=== PATIENT | male | born 1940 | race Caucasian/White ===

== ENCOUNTER 2022-10-20 12:22 | Emergency (ER) | payer MEDICARE, SELFPAY ==
[2022-10-20] VITALS (15 sets, daily range): BP systolic 114–150; BP diastolic 62–91; PULSE 56–99; RESP 14–27; TEMP 36.9; O2SAT 96–99; BMI 25.7
--- NOTE | 2022-10-20 12:29 | ED_ITS ---
HPI - Chest Pain General Chief Complaint: Chest Pain Stated Complaint: CHEST PAIN/ LEFT ARM PAIN Time Seen by Provider: 10/20/22 12:29 Source: patient Mode of arrival: walk-in History of Present Illness HPI narrative: issue here complaining of chest discomfort off and on the last several days if not longer. He somewhat of a hesitant historian. Initially treated him as a cold because he was getting hot and cold flashes. But he never really ran a fever. He's not had any sputum production. Does not have any nausea vomiting or diaphoresis. He has substantial history coronary disease, two thousand ten he had triple bypass surgery at [facility]. He does take aspirin and his other heart pills with regularity. The initial episode [place] However he said about a half a dozen spells lasting less than five minutes today. He has not had a recent cardiac stress test. He says he notices some increasing shortness of breath when he tries to get work done. Dr. Palomo is his primary care doctor. Related Data Home Medications Medication Instructions Recorded Confirmed aspirin 81 mg tablet,delayed 81 mg PO DAILY 10/20/22 10/20/22 release (Adult Low Dose Aspirin) atorvastatin 40 mg tablet 40 mg PO DAILY 10/20/22 10/20/22 carvedilol 25 mg tablet 25 mg PO Q12H 10/20/22 10/20/22 clopidogrel 75 mg tablet 75 mg PO DAILY 10/20/22 10/20/22 hydralazine 25 mg tablet 25 mg PO Q8H 10/20/22 10/20/22 isosorbide mononitrate 30 mg 30 mg PO DAILY 10/20/22 10/20/22 tablet,extended release 24 hr lisinopril 40 mg tablet 40 mg PO DAILY 10/20/22 10/20/22 nitroglycerin 0.4 mg sublingual 0.4 mg sublingual Q5M 10/20/22 10/20/22 tablet pantoprazole 40 mg tablet,delayed 40 mg PO DAILY 10/20/22 10/20/22 release spironolactone 25 mg tablet 25 mg PO DAILY 10/20/22 10/20/22 Allergies Allergy/AdvReac Type Severity Reaction Status Date / Time No Known Drug Allergies Allergy Verified 10/20/22 12:29 Exam Narrative Exam Narrative: patient awake alert adequate historiann. He did forget about his transferred to [facility] about a year ago for non-STEMI but he is oriented ?3 and very pleasant here with his granddaughter. Vital signs are stable. A stat 12-lead EKG was done on his arrival and does not show any acute ischemia injury or infarct. HEENT shows head to be a somatic kerry she is normocephalic with no evidence of trauma or injury there is no pallor or anemia. Neck is soft and supple. Do not see evidence of jugular vein distention or thyromegaly. Chest his lungs are clear no wheezes rales or rhonchi heart sounds are normal with no S3-S4 clicks rubs or murmurs. Peripheral pulses are strong and equal symmetrical bilaterally. The abdomen does not have a abdominal pain discomfort masses are palpable or Constitutional Vital Signs - 24 hr 10/20/22 12:25 10/20/22 12:27 10/20/22 12:27 Temperature 98.4 F Pulse Rate Pulse Rate [Monitor] 99 H Respiratory Rate 16 Blood Pressure 143/91 H Blood Pressure [Right Arm] 143/91 H Pulse Oximetry 98 99 99 Oxygen Delivery Method Room Air 10/20/22 12:30 10/20/22 12:46 10/20/22 13:00 Temperature Pulse Rate 63 61 59 L Pulse Rate [Monitor] Respiratory Rate 18 16 18 Blood Pressure 150/70 H 127/75 H 114/63 Blood Pressure [Right Arm] Pulse Oximetry 99 98 97 Oxygen Delivery Method 10/20/22 13:00 10/20/22 13:15 10/20/22 13:30 Temperature Pulse Rate 66 58 L 59 L Pulse Rate [Monitor] Respiratory Rate 18 18 21 Blood Pressure 114/63 124/62 H 121/66 H Blood Pressure [Right Arm] Pulse Oximetry 98 98 97 Oxygen Delivery Method 10/20/22 13:45 10/20/22 14:00 10/20/22 14:15 Temperature Pulse Rate 56 L 58 L 60 Pulse Rate [Monitor] Respiratory Rate 18 18 27 H Blood Pressure 123/64 H 125/66 H 123/67 H Blood Pressure [Right Arm] Pulse Oximetry 96 99 98 Oxygen Delivery Method 10/20/22 14:30 10/20/22 14:45 10/20/22 15:00 Temperature Pulse Rate 60 59 L 59 L Pulse Rate [Monitor] Respiratory Rate 14 21 16 Blood Pressure 135/69 H 132/69 H 138/74 H Blood Pressure [Right Arm] Pulse Oximetry 99 99 97 Oxygen Delivery Method 10/20/22 15:15 10/20/22 15:30 Temperature Pulse Rate 61 64 Pulse Rate [Monitor] Respiratory Rate 15 23 Blood Pressure 139/69 H 149/90 H Blood Pressure [Right Arm] Pulse Oximetry 97 99 Oxygen Delivery Method Course Vital Signs Vital signs: Vital Signs Temperature 98.4 F 10/20/22 12:25 Pulse Rate 99 H 10/20/22 12:25 Respiratory Rate 16 10/20/22 12:25 Blood Pressure 143/91 H 10/20/22 12:25 Pulse Oximetry 98 10/20/22 12:25 Oxygen Delivery Method Room Air 10/20/22 12:25 Temperature 98.4 F 10/20/22 12:25 Pulse Rate 64 10/20/22 15:30 Respiratory Rate 23 10/20/22 15:30 Blood Pressure 149/90 H 10/20/22 15:30 Pulse Oximetry 99 10/20/22 15:30 Oxygen Delivery Method Room Air 10/20/22 12:25 MDM - Chest Pain MDM Narrative Medical decision making narrative: patient's initial evaluation discloses negative troponin. Two-hour troponin high sensitivity is decreasing and still within the normal range. His chest x-ray did not show any acute findings. He was reexamined is doing well has not had any further symptoms. I think he should follow up with primary care doctor. We don't know exactly when his last stress test or echo were but will let the telecommunications equipment installer decided to be prudent to reevaluate him. He's compliant with his medication. Lab Data Labs: Lab Results 10/20/22 10/20/22 Range/Units 12:39 14:35 WBC 13.1 H (4.0-11.0) 10^3/uL RBC 4.90 (4.70-6.10) 10^6/uL Hgb 14.3 (14.0-18.0) g/dL Hct 42.3 (42.0-54.0) % MCV 86.3 (80.0-94.0) fL MCH 29.2 (25.9-34.0) pg MCHC 33.8 (29.9-35.2) g/dL RDW 13.6 (11.0-15.0) % Plt Count 176 (150-450) 10^3/uL MPV 10.1 (9.5-13.5) fL Seg Neuts % (Manual) 70.0 Lymphocytes % (Manual) 17.0 L (20.5-60.0) % Monocytes % (Manual) 13.0 H (1.7-12.0) % Eosinophils % (Manual) 0.0 L (0.9-7.0) % Basophils % (Manual) 0.0 L (0.2-2.0) % Neutrophils # (Manual) 9.17 H (1.4-6.5) 10^3/uL Lymphocytes # (Manual) 2.22 (1.20-3.80) 10^3/uL Monocytes # (Manual) 1.70 H (0.30-0.80) 10^3/uL Eosinophils # (Manual) 0.00 (0.00-0.70) 10^3/uL Basophils # (Manual) 0.00 (0.00-0.10) 10^3/uL PT 10.6 (9.0-11.6) sec INR 1.00 APTT 31.7 (22.3-36.2) sec Sodium 135 L (136-145) mmol/L Potassium 4.4 (3.5-5.1) mmol/L Chloride 101 (98-107) mmol/L Carbon Dioxide 25.5 (21.0-32.0) mmol/L Anion Gap 12.9 BUN 29.0 H (7.0-18.0) mg/dL Creatinine 1.46 H (0.70-1.30) mg/dL Est GFR ( Amer) 56 L (>=60) Est GFR (Non-Af Amer) 46 L (>=60) BUN/Creatinine Ratio 19.9 Glucose 100 (74-106) mg/dL Calcium 9.3 (8.5-10.1) mg/dL Total Bilirubin 2.2 H (0.2-1.0) mg/dL AST 22 (15-37) U/L ALT 36 (16-63) U/L Alkaline Phosphatase 75 (46-116) U/L Troponin I High Sens 15.1 13.5 (4.0-76.1) pg/mL Total Protein 7.5 (6.4-8.2) g/dL Albumin 3.5 (3.4-5.0) g/dL Globulin 4.0 g/dL Albumin/Globulin Ratio 0.9 Discharge Plan Discharge Chief Complaint: Chest Pain Clinical Impression: Atypical chest pain Patient Disposition: Home, Self-Care Time of Disposition Decision: 15:43 Mode of Transportation: Private Vehicle Prescriptions / Home Meds: No Action atorvastatin 40 mg tablet 40 mg PO DAILY carvedilol 25 mg tablet 25 mg PO Q12H clopidogrel 75 mg tablet 75 mg PO DAILY hydralazine 25 mg tablet 25 mg PO Q8H isosorbide mononitrate 30 mg tablet extended release 24 hr 30 mg PO DAILY lisinopril 40 mg tablet 40 mg PO DAILY nitroglycerin 0.4 mg tablet, sublingual 0.4 mg sublingual Q5M pantoprazole 40 mg tablet,delayed release (DR/EC) 40 mg PO DAILY spironolactone 25 mg tablet 25 mg PO DAILY aspirin [Adult Low Dose Aspirin] 81 mg tablet,delayed release (DR/EC) 81 mg PO DAILY Instructions: Chest Pain (ED) Stand Alone Forms: Portal Instructions Referrals: PHOENIX GONZALEZ [Primary Care Provider] - 1 week
--- NOTE | 2022-10-20 12:29 | ECG_ITS ---
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
--- NOTE | 2022-10-20 12:29 | XR_ITS ---
[address] [address] Patient Name: RADHA BOB MRN: [id number] date: 1940 Sex: M Assigned Patient Location: ER Current Patient Location: ED.MAIN Accession/Order Number: [id number] Exam Date: 10/20/2022 12:46 Report Date: 10/20/2022 13:23 At the request of: HEAVENLY HENRIQUEZ Procedure: XR chest 1V EXAMINATION: XR chest 1V HISTORY: pain ; chest pain, left arm pain COMPARISON: XR chest 08/07/2021 FINDINGS: LUNGS: No significant pulmonary parenchymal abnormalities. VASCULATURE: No increased pulmonary vasculature. PLEURA: No pneumothorax, effusion, or pleural thickening. CARDIAC: No cardiomegaly or cardiac silhouette abnormality. MEDIASTINUM: No visible mass or adenopathy. BONES: No fracture or visible bone lesion. OTHER: Prior sternotomy. IMPRESSION: 1. No acute cardiopulmonary process. Stable chest. Electronically authenticated by: JASKARAN CARRERA Date: 10/20/2022 13:23
[2022-10-20 12:45] LABS: Hematocrit 42.3 % (42.0-54.0); Hemoglobin 14.3 g/dL (14.0-18.0); Mean Corpuscular HGB Conc 33.8 g/dL (29.9-35.2); Mean Corpuscular Hemoglobin 29.2 pg (25.9-34.0); Mean Corpuscular Volume 86.3 fL (80.0-94.0); Mean Platelet Volume 10.1 fL (9.5-13.5); Platelet Count 176 10^3/uL (150-450); Red Cell Distribution Width 13.6 % (11.0-15.0); White Blood Count 13.1 10^3/uL (4.0-11.0)
[2022-10-20 13:00] LABS: Partial Thromboplastin Time 31.7 sec (22.3-36.2); Prothrombin Time 10.6 sec (9.0-11.6)
[2022-10-20 13:02] LABS: Alanine Aminotransferase 36 U/L (16-63); Albumin Globulin Ratio 0.9; Albumin Level 3.5 g/dL (3.4-5.0); Alkaline Phosphatase 75 U/L (46-116); Anion Gap 12.9; Aspartate Amino Transferase 22 U/L (15-37); BUN Creatinine Ratio 19.9; Bilirubin Total 2.2 mg/dL (0.2-1.0); Calcium 9.3 mg/dL (8.5-10.1); Carbon Dioxide 25.5 mmol/L (21.0-32.0); Chloride 101 mmol/L (98-107); Estimated GFR (African America 56 (>=60); Estimated GFR (Non-African Ame 46 (>=60); Glucose 100 mg/dL (74-106); Potassium 4.4 mmol/L (3.5-5.1); Sodium 135 mmol/L (136-145); Total Protein 7.5 g/dL (6.4-8.2); Troponin I High Sensitivity 15.1 pg/mL (4.0-76.1)
[2022-10-20 13:11] LABS: Lymphocytes Absolute Manual 2.22 10^3/uL (1.20-3.80); Segmented Neut Absolute Manual 9.17 10^3/uL (1.4-6.5)
[2022-10-20 14:58] LABS: Troponin I High Sensitivity 13.5 pg/mL (4.0-76.1)
== END 2022-10-20 15:57 | disposition home or self-care (01) ==
PROVIDERS: Emergency Provider Emergency Medicine Emergency Medical Services; PCP Internal Medicine
DX: R07.89 Other chest pain (principal); I25.10 Atherosclerotic heart disease of native coronary artery without angina pectoris; Z79.82 Long term (current) use of aspirin; Z79.899 Other long term (current) drug therapy; I25.2 Old myocardial infarction
CPT/HCPCS: 36415; 71045; 80053; 84484; 85007; 85025; 85610; 85730; 93005; 99285

== ENCOUNTER 2023-01-01 08:46 | Outpatient (OUT) | payer MEDICARE, SELFPAY ==
--- NOTE | 2023-01-01 09:31 | CA_ITS ---
Patient: RADHA BOB Exam Date: 01/01/2023 : 1940 Gender:M Ordering : CELIA DURHAM Admission #: [id number] Family : DR PHOENIX GONZALEZ M.D. Order #: [id number] CLICK HERE TO VIEW EXAM ECHOCARDIOGRAM REPORT PROCEDURE: CA ECHO DOPPLER COMPLETE INDICATIONS: Ischemic cardiomyopathy, chronic systolic heart failure, CABGx3, h/o IN's, hypertension COMPARISON: None. DESCRIPTION: COMPLETE ECHOCARDIOGRAM Real-time transthoracic echocardiography with 2D, M-mode, spectral and color flow Doppler performed. QUALITY: Technical quality was good. LEFT VENTRICLE: Normal chamber size. Proximal septal hypertrophy (sigmoid septum). LV EF: Global left ventricular systolic function is moderately reduced; visually estimated ejection fraction is 30-35%. The distal third of the inferior wall is akinetic. The distal two thirds of the anteroseptum appears severely hypokinetic. DIASTOLIC: Grade II diastolic dysfunction. ATRIAL SEPTUM: Visually appears intact. LEFT ATRIUM: Mild dilatation. RIGHT ATRIUM: Normal chamber size. RIGHT VENTRICLE: Normal chamber size. Decreased right ventricular systolic function. TRICUSPID VALVE: Normal mobility and thickness. No stenosis with trivial regurgitation. No evidence of pulmonary hypertension. RVSP 34 mmHg MITRAL VALVE: Mildly thickened with normal mobility. No evidence of mitral valve stenosis. There is no mitral annular calcification. Trivial mitral regurgitation. AORTIC VALVE: Normal trileaflet appearance. Mildly calcified aortic valve. Mildly diminished mobility. No evidence of aortic valve stenosis. Trivial aortic regurgitation. AORTIC ROOT: Normal diameter and appearance. PULMONIC VALVE: Normal thickness and mobility. No stenosis. Trivial regurgitation. PERICARDIUM: Trivial pericardial effusion is seen. IVC: Collapses with inspirations. IVC is normal in size. CONCLUSION: 1. Global left ventricular systolic function is moderately reduced; visually estimated ejection fraction is 30 to 35%. Segmental wall motion abnormalities are seen. 2. Grade 2 diastolic dysfunction. 3. The left atrium is mildly dilated. 4. The right ventricle is normal in size with decreased systolic function. 5. No significant valvular abnormalities. 6. Trivial pericardial effusion is seen. Adult Echocardiography Procedure Report Left Ventricle LVEDD (3.7 - 5.6 cm): 4.57 cm LVESD (2.2 - 4.0 cm): 2.94 cm LVIVS thickness (0.6 - 1.2 cm): 1.23 cm LVPW thickness (0.5 - 1.0 cm): 0.85 cm e': 0.04 m/s E - e': 12.16 LVOT Max Gradient: 2.19 mm[Hg] LVOT Area (cm2): 0.74 m/s Peak Velocity (LVOT): 0.74 m/s Mean Velocity (LVOT): 0.54 m/s LVOT Diameter 2.54 cm Left Atrium LA Volume Index (2D A2C): 38.68 ml/m2 Left Atrium Systolic Dimension: 4.48 cm Mitral Valve MV E to A Ratio: 0.58 Mitral Valve A-Wave Peak Velocity: 0.93 m/s Mitral Valve E-Wave Peak Velocity: 0.54 m/s Right Ventricle Aorta AO Root Diam: 3.38 cm Ascending Ao Diam: 2.81 cm Aortic Valve AoV Area (Peak Adarsh): 3.70 cm2, 3.83 cm2 AoV Area (VTI): 3.54 cm2, 3.72 cm2 Peak Velocity(Antegrade Flow): 0.98 m/s, 1.05 m/s Peak Gradient(Antegrade Flow): 3.85 mm[Hg], 4.42 mm[Hg] Mean Velocity(Antegrade Flow): 0.69 m/s, 0.75 m/s Mean Gradient(Antegrade Flow): 2.16 mm[Hg], 2.57 mm[Hg] Velocity Time Integral: 22.13 cm, 24.28 cm Tricuspid Valve Peak Velocity (Regurgitant Flow): 2.78 m/s Pulmonic Valve Peak Velocity: 1.18 m/s Peak Gradient: 5.61 mm[Hg], 5.61 mm[Hg] Right Atrium Right Atrium Systolic Pressure: 46.08 ml, 46.08 ml Dictated by: Rohit Adkins M.D. on 01/01/2023 at 13:02 Approved by: Rohit Adkins M.D. on 01/01/2023 at 13:08
== END 2023-01-01 08:47 | disposition home or self-care (01) ==
LOC: CARD 08:46
PROVIDERS: PCP Internal Medicine; Visit Provider Nurse Practitioner
DX: I25.5 Ischemic cardiomyopathy (principal); I50.22 Chronic systolic (congestive) heart failure
CPT/HCPCS: 93306

== ENCOUNTER 2023-03-26 06:44 | Outpatient (OUT) | payer MEDICARE, SELFPAY ==
--- NOTE | 2023-03-26 08:40 | CA_ITS ---
Patient Name: RADHA BOB MR#: [id number] : 1940 Exam Date: 03/26/2023 Ordering Doctor: MRS. CARLA SESAY NP ECHOCARDIOGRAM REPORT PROCEDURE: CA ECHO LIMITED INDICATIONS: Chronic systolic heart failure COMPARISON: None. DESCRIPTION: Limited ECHOCARDIOGRAM Real-time transthoracic echocardiography with 2D and M-mode performed. QUALITY: Technical quality was good. LEFT VENTRICLE: Normal chamber size. Mild concentric left ventricular hypertrophy. Global left ventricular systolic function is mildly to moderately reduced. There is evidence of akinesis of the entire mid and distal septum and apex and hypokinesis of the distal anterior and inferior segments with good contractility of the remaining segments. LV EF: Mildly to moderately reduced left ventricular ejection fraction, (40%). DIASTOLIC: ATRIAL SEPTUM: LEFT ATRIUM: Mild dilatation. RIGHT ATRIUM: Normal chamber size. RIGHT VENTRICLE: Mild dilatation. Normal right ventricular systolic function. TRICUSPID VALVE: Normal mobility and thickness. MITRAL VALVE: Normal mobility and thickness. AORTIC VALVE: Normal trileaflet appearance. Mildly calcified aortic valve. Normal leaflet mobility. AORTIC ROOT: Normal diameter and appearance. PULMONIC VALVE: Normal thickness and mobility. PERICARDIUM: No evidence of pericardial effusion. IVC: Collapses with inspirations. normal size. PLEURA: CONCLUSION: 1. Left ventricular systolic function is mildly to moderately reduced with segmental wall motion abnormalities suggestive of possible prior LAD territory infarction. Estimated left ventricular ejection fraction is 40%. 2. Normal right ventricular size and systolic function. 3. No pericardial effusion. 4. Limited study performed with no Doppler interrogation as requested. Adult Echocardiography Procedure Report Left Ventricle LVEDD (3.7 - 5.6 cm): 4.87 cm LVESD (2.2 - 4.0 cm): 3.73 cm LVIVS thickness (0.6 - 1.2 cm): 0.96 cm LVPW thickness (0.5 - 1.0 cm): 1.21 cm LVOT Diameter 1.96 cm Left Ventricular Ejection Fraction: 40 % Left Atrium LA Volume Index (2D A2C): 43.05 ml/m2 Left Atrium Systolic Dimension: 4.90 cm Mitral Valve Right Ventricle RV Internal Diastolic Dimension: 4.32 cm Aorta AO Root Diam: 3.23 cm Ascending Ao Diam: 3.02 cm Aortic Valve Tricuspid Valve Pulmonic Valve Right Atrium Right Atrium Systolic Pressure: 60.40 ml, 60.40 ml Dictated by: Kyle Patrick M.D. on 03/26/2023 at 17:10 Approved by: Kyle Patrick M.D. on 03/26/2023 at 17:15
== END 2023-03-26 06:45 | disposition home or self-care (01) ==
LOC: CARD 06:44
PROVIDERS: PCP Internal Medicine; Visit Provider Nurse Practitioner Acute Care
DX: I11.0 Hypertensive heart disease with heart failure (principal); I50.22 Chronic systolic (congestive) heart failure
CPT/HCPCS: 93308; 93356

== ENCOUNTER 2023-04-07 10:35 | Emergency (ER) | payer MEDICARE, SELFPAY ==
[2023-04-07] VITALS (14 sets, daily range): BP systolic 163–189; BP diastolic 79–95; PULSE 56–67; RESP 12–23; TEMP 36.5; O2SAT 96–99; BMI 25.7
--- NOTE | 2023-04-07 10:50 | ECG_ITS ---
The 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
--- NOTE | 2023-04-07 10:51 | XR_ITS ---
The [address] [address] Patient Name: RADHA BOB MRN: [id number] date: 1940 Sex: M Assigned Patient Location: ER Current Patient Location: ER Accession/Order Number: [id number] Exam Date: 04/07/2023 11:00 Report Date: 04/07/2023 11:14 At the request of: YVETTE POLK Procedure: XR chest 1V EXAM: XR chest 1V HISTORY: hypertension, palpitations COMPARISON: Chest study dated 10/20/2022 TECHNIQUE: AP view of the chest was obtained with portable technique at 10:59 AM. FINDINGS: Heart is mildly enlarged. Postoperative sternotomy wires are present. No obvious focal infiltrate or consolidation. No obvious pneumothorax. Bony structures appear grossly intact. XR/XR chest 1V IMPRESSION: Mild cardiomegaly. No obvious focal infiltrate or consolidation seen. Electronically authenticated by: AME ALEXANDER Date: 04/07/2023 11:14
--- NOTE | 2023-04-07 10:51 | ED.GENADUL1 ---
HPI - General Adult General Chief complaint: Chest Pain Stated complaint: HIGH BLOOD PRESSURE/ CHEST PAIN Time Seen by Provider: 04/07/23 10:42 Source: patient Mode of arrival: walk-in History of Present Illness HPI narrative: 82-year-old male presents for elevated blood pressure. He states that he had a spell this morning that lasted about twenty seconds. He has difficulty describing it but ultimately he told me that he felt like his heart was going to stop bleeding. He did not pass out. He does not have any chest pain or pressure. He's been taking his blood pressure medications but checked his blood pressure home and it was elevated. Related Data Home Medications Medication Instructions Recorded Confirmed aspirin 81 mg tablet,delayed 81 mg PO DAILY 10/20/22 04/07/23 release (Adult Low Dose Aspirin) atorvastatin 40 mg tablet 40 mg PO DAILY 10/20/22 04/07/23 carvedilol 25 mg tablet 25 mg PO Q12H 10/20/22 04/07/23 clopidogrel 75 mg tablet 75 mg PO DAILY 10/20/22 04/07/23 isosorbide mononitrate 30 mg 30 mg PO DAILY 10/20/22 04/07/23 tablet,extended release 24 hr lisinopril 40 mg tablet 40 mg PO DAILY 10/20/22 04/07/23 nitroglycerin 0.4 mg sublingual 0.4 mg sublingual Q5M 10/20/22 04/07/23 tablet pantoprazole 40 mg tablet,delayed 40 mg PO DAILY 10/20/22 04/07/23 release spironolactone 25 mg tablet 25 mg PO DAILY 10/20/22 04/07/23 Allergies Allergy/AdvReac Type Severity Reaction Status Date / Time No Known Drug Allergies Allergy Verified 10/20/22 12:29 Review of Systems ROS Narrative A ten point review of systems is negative except as noted above. Exam Narrative Exam Narrative: Nurses note and vital signs reviewed and patient is not hypoxic. General: The patient appears well and in no apparent distress. Patient is resting comfortably on cart. Skin: Warm, dry, no pallor noted. There is no rash noted. Head: Normocephalic, atraumatic Eye: Normal conjunctiva, no drainage Ears, Nose, Mouth, and Throat: oral mucosa is moist. Nares patent. Cardiovascular: Regular Rate and Rhythm, bradycardic Respiratory: Patient is in no distress, no accessory muscle use, lungs are clear to auscultation, no wheezing, rales or rhonchi Back: non-tender GI: soft and nontender Musculoskeletal: The patient has no evidence of calf tenderness, no pitting edema, symmetrical pulses noted bilaterally Neurological: A&O, normal speech Psychiatric: Cooperative Constitutional Vital Signs, click to edit/add: Last Vital Signs Temp 97.7 F 04/07/23 10:39 Pulse 60 04/07/23 11:10 Resp 21 04/07/23 11:10 BP 178/88 H 04/07/23 12:56 Pulse Ox 97 04/07/23 11:10 O2 Del Method Room Air 04/07/23 11:03 Course Vital Signs Vital signs: Vital Signs Temperature 97.7 F 04/07/23 10:39 Pulse Rate 56 L 04/07/23 10:39 Respiratory Rate 16 04/07/23 10:39 Blood Pressure 189/81 H 04/07/23 10:39 Pulse Oximetry 97 04/07/23 10:39 Oxygen Delivery Method Room Air 04/07/23 10:39 Temperature 97.7 F 04/07/23 10:39 Pulse Rate 60 04/07/23 11:10 Respiratory Rate 21 04/07/23 11:10 Blood Pressure 178/88 H 04/07/23 12:56 Pulse Oximetry 97 04/07/23 11:10 Oxygen Delivery Method Room Air 04/07/23 11:03 Medical Decision Making MDM Narrative Medical decision making narrative: two troponins are normal and essentially unchanged. He remains in sinus rhythm throughout his entire emergency department stay and has had no dysrhythmia. His blood pressure was mildly elevated. 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 Treatment diagnosis and follow-up were discussed with the patient. Differential Diagnosis Differential Diagnosis: hypertension, anxiety, cardiac dysrhythmia Lab Data Lab results reviewed: Yes I reviewed the patient's lab results Labs: Lab Results 04/07/23 04/07/23 Range/Units 10:55 12:20 WBC 11.3 H (4.0-11.0) 10^3/uL RBC 5.15 (4.70-6.10) 10^6/uL Hgb 14.7 (14.0-18.0) g/dL Hct 44.8 (42.0-54.0) % MCV 87.0 (80.0-94.0) fL MCH 28.5 (25.9-34.0) pg MCHC 32.8 (29.9-35.2) g/dL RDW 13.3 (11.0-15.0) % Plt Count 198 (150-450) 10^3/uL MPV 9.9 (9.5-13.5) fL Neut % (Auto) 65.8 (43.0-75.0) % Lymph % (Auto) 21.1 (20.5-60.0) % [place] % (Auto) 10.0 (1.7-12.0) % Eos % (Auto) 2.1 (0.9-7.0) % Baso % (Auto) 0.7 (0.2-2.0) % Neut # (Auto) 7.4 H (1.4-6.5) 10^3/uL Lymph # (Auto) 2.4 (1.2-3.8) 10^3/uL [place] # (Auto) 1.1 H (0.3-0.8) 10^3/uL Eos # (Auto) 0.2 (0.0-0.7) 10^3/uL Baso # (Auto) 0.1 (0.0-0.1) 10^3/uL Abs Immat Gran (auto) 0.03 (0.00-0.03) 10^3/uL Imm/Tot Granulo (auto) 0.3 (0.0-0.5) % Sodium 141 (136-145) mmol/L Potassium 4.3 (3.5-5.1) mmol/L Chloride 105 (98-107) mmol/L Carbon Dioxide 28.4 (21.0-32.0) mmol/L Anion Gap 11.9 BUN 17.0 (7.0-18.0) mg/dL Creatinine 1.16 (0.70-1.30) mg/dL Est GFR ( Amer) >60 (>=60) Est GFR (Non-Af Amer) >60 (>=60) BUN/Creatinine Ratio 14.7 Glucose 105 (74-106) mg/dL Calcium 8.8 (8.5-10.1) mg/dL Troponin I High Sens 27.5 29.4 (4.0-76.1) pg/mL Imaging Data Chest x-ray: Radiologist's impression: Procedure: XR chest 1V EXAM: XR chest 1V HISTORY: hypertension, palpitations COMPARISON: Chest study dated 10/20/2022 TECHNIQUE: AP view of the chest was obtained with portable technique at 10:59 AM. FINDINGS: Heart is mildly enlarged. Postoperative sternotomy wires are present. No obvious focal infiltrate or consolidation. No obvious pneumothorax. Bony structures appear grossly intact. IMPRESSION: Mild cardiomegaly. No obvious focal infiltrate or consolidation seen. Electronically authenticated by: AME ALEXANDER Date: 04/07/2023 ECG Data Attestation: I personally reviewed and interpreted this ECG as follows: (EKG on my interpretation shows sinus bradycardia with a 1st degree block and a rate of 56.) Discharge Plan Discharge Chief Complaint: Chest Pain Clinical Impression: Hypertension Patient Disposition: Home, Self-Care Time of Disposition Decision: 13:06 Condition: Good Mode of Transportation: Private Vehicle Prescriptions / Home Meds: No Action atorvastatin 40 mg tablet 40 mg PO DAILY carvedilol 25 mg tablet 25 mg PO Q12H clopidogrel 75 mg tablet 75 mg PO DAILY isosorbide mononitrate 30 mg tablet extended release 24 hr 30 mg PO DAILY lisinopril 40 mg tablet 40 mg PO DAILY nitroglycerin 0.4 mg tablet, sublingual 0.4 mg sublingual Q5M pantoprazole 40 mg tablet,delayed release (DR/EC) 40 mg PO DAILY spironolactone 25 mg tablet 25 mg PO DAILY aspirin [Adult Low Dose Aspirin] 81 mg tablet,delayed release (DR/EC) 81 mg PO DAILY Instructions: Hypertension (ED), Hypertension in the Older Adult (ED) Additional Instructions: continue to take all your medications. Call your caltrans equipment operator today to make a follow-up appointment. Stand Alone Forms: Portal Instructions Referrals: PHOENIX GONZALEZ [Primary Care Provider] - 1 week
[2023-04-07 11:04] LABS: Basophils Absolute Auto 0.1 10^3/uL (0.0-0.1); Basophils Percent Auto 0.7 % (0.2-2.0); Eosinophils Absolute Auto 0.2 10^3/uL (0.0-0.7); Eosinophils Percent Auto 2.1 % (0.9-7.0); Hematocrit 44.8 % (42.0-54.0); Hemoglobin 14.7 g/dL (14.0-18.0); Immature Granulocytes Abs Auto 0.03 10^3/uL (0.00-0.03); Immature Granulocytes Pct Auto 0.3 % (0.0-0.5); Lymphocytes Absolute Auto 2.4 10^3/uL (1.2-3.8); Lymphocytes Percent Auto 21.1 % (20.5-60.0); Mean Corpuscular HGB Conc 32.8 g/dL (29.9-35.2); Mean Corpuscular Hemoglobin 28.5 pg (25.9-34.0); Mean Platelet Volume 9.9 fL (9.5-13.5); Monocytes Absolute Auto 1.1 10^3/uL (0.3-0.8); Neutrophils Absolute Auto 7.4 10^3/uL (1.4-6.5); Neutrophils Percent Auto 65.8 % (43.0-75.0); Platelet Count 198 10^3/uL (150-450); Red Blood Count 5.15 10^6/uL (4.70-6.10); Red Cell Distribution Width 13.3 % (11.0-15.0); White Blood Count 11.3 10^3/uL (4.0-11.0)
[2023-04-07 11:15] LABS: Anion Gap 11.9; BUN Creatinine Ratio 14.7; Calcium 8.8 mg/dL (8.5-10.1); Carbon Dioxide 28.4 mmol/L (21.0-32.0); Chloride 105 mmol/L (98-107); Estimated GFR (African America >60 (>=60); Estimated GFR (Non-African Ame >60 (>=60); Glucose 105 mg/dL (74-106); Potassium 4.3 mmol/L (3.5-5.1); Sodium 141 mmol/L (136-145)
[2023-04-07 11:19] LABS: Troponin I High Sensitivity 27.5 pg/mL (4.0-76.1)
[2023-04-07 12:43] LABS: Troponin I High Sensitivity 29.4 pg/mL (4.0-76.1)
== END 2023-04-07 13:23 | disposition home or self-care (01) ==
PROVIDERS: Emergency Provider Emergency Medicine; PCP Internal Medicine
DX: I10 Essential (primary) hypertension (principal); Z79.82 Long term (current) use of aspirin; Z79.899 Other long term (current) drug therapy
CPT/HCPCS: 36415; 71045; 80048; 84484; 85025; 93005; 99285

== ENCOUNTER 2023-04-16 07:03 | Outpatient (OUT) | payer MEDICARE, SELFPAY ==
--- OUTSIDE RECORDS SUMMARY | 2023-04-16 07:09 | XMS_ITS | CCD ---
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 Liner Name Role Phone PHYSICIAN, DEFAULT Admitting Unavailable PHYSICIAN, DEFAULT Attending Unavailable SCOTT TAI Primary Care Unavailable VIDAL ODOM Attending Unavailable VIDAL ODOM Admitting Unavailable SCOTT TAI Primary Care Unavailable PADMA PRADO Referring Unavailable [place] Procedure Practitioner Unavailab BINDU Romero Surgeon Unavailable PAY, DR MORTON Admitting Unavailable CARLOS, DR GARIBAY Primary Care Unavailable PAY, DR MORTON Attending Unavailable PAY, DR MORTON Consulting Unavailable STACY RALPH Consulting Unavailable AHMEDANDRES Consulting Unavailable SarmientoPernell Consulting Unavailable ZIEBER, DR JASKARAN Watters Consulting Unavailable CECI CADENA Attending Unavailable CECI CADENA Admitting Unavailable CARLOS, DR GARIBAY Primary Care Unavailable CECI CADENA Consulting Unavailable CARLOS, DR GARIBAY Primary Care Unavailable CECI CADENA Admitting Unavailable CECI CADENA Attending Unavailable STACY RALPH Consulting Unavailable JOHAN, DR ROUSE Consulting Unavailable Carlton Bravo Consulting Unavailable Driss Smith Unavailable [phone] CARLA SESAY Attending Unavailable CELIA DURHAM Attending Unavailable SCOTT TAI Attending Unavailable Allergies Allergy Classification Reported Allergen(s) Allergy Type Date of Onset Reaction(s) Facility (1 source) 72980,00 Drug allergy (disorder) 02-21-2010 [facility] Repository Medications Current Medications Medication Drug Class(es) Dates Sig (Normalized) Sig (Original) amylase 647725 unt / lipase 91838 unt / protease [id number] unt delayed release oral capsule (2 sources) Start: 10-02-2021 take 1 capsule by mouth every eight hours Creon [id number] UNIT 1 CAPSULE Orally THREE TIMES A DAY for 30 days Sep, Active aspirin 81 mg delayed release oral tablet (2 sources) Platelet Aggregation Inhibitor, Nonsteroidal Anti-inflammatory Drug take 1 tablet by mouth every twenty-four hours Aspirin 81 MG 1 tablet Orally Once a day Active atorvastatin 40 mg oral tablet (2 sources) HMG-CoA Reductase Inhibitor take 1 tablet by mouth every twenty-four hours Atorvastatin Calcium 40 MG 1 tablet Orally Once a day Active carvedilol 25 mg oral tablet (2 sources) alpha-Adrenergic Kary, beta-Adrenergic Kary take 1 tablet by mouth every twelve hours Carvedilol 25 MG 1 tablet with food Orally Twice a day Active clopidogrel 75 mg oral tablet (2 sources) P2Y12 Platelet Inhibitor take 1 tablet by mouth every twenty-four hours Clopidogrel Bisulfate 75 MG 1 tablet Orally Once a day Active hydrALAZINE hydrochloride 25 mg oral tablet (2 sources) Arteriolar Vasodilator take 1 tablet by mouth every eight hours hydrALAZINE HCl 25 MG 1 tablet with food Orally Three times a day Active 24 hr isosorbide mononitrate 30 mg extended release oral tablet (2 sources) Nitrate Vasodilator take 1 tablet by mouth every twenty-four hours Isosorbide Mononitrate ER 30 MG 1 tablet in the morning Orally Once a day Active lisinopril 40 mg oral tablet (2 sources) Angiotensin Converting Enzyme Inhibitor take 1 tablet by mouth every twenty-four hours Lisinopril 40 MG 1 tablet Orally Once a day Active nitroglycerin 0.4 mg sublingual tablet (2 sources) Nitrate Vasodilator Nitroglycerin 0.4 MG as directed Sublingual prn Active pantoprazole 40 mg delayed release oral tablet (2 sources) Proton Pump Inhibitor take 1 tablet by mouth every twenty-four hours Pantoprazole Sodium 40 MG 1 tablet Orally Once a day Active spironolactone 25 mg oral tablet (2 sources) Aldosterone Antagonist Spironolactone 25 MG 1 tablet Orally Active Problems Active Problems Problem Classification Problem Date Documented Da te Episodic/Chronic Abdominal pain (4 sources) Epigastric pain; Translations: [Unspecified abdominal pain] Onset: 07-26-2021 Episodic Cardiac dysrhythmias (1 source) Bradycardia, unspecified; Translations: [BRADYCARDIA UNSPECIFIED] Onset: 05-08-2021 Episodic Chronic kidney disease (2 sources) Chronic kidney disease; Translations: [Chronic kidney disease, stage 3a] Onset: 12-09-2022 Congestive heart failure; nonhypertensive (2 sources) Chronic systolic (congestive) heart failure; Translations: [Chronic systolic (congestive) heart failure] Onset: 12-09-2022 Chronic Coronary atherosclerosis and other heart disease (6 sources) Old myocardial infarction; Translations: [Atherosclerotic heart disease of [place] coronary artery without angina pectoris] Onset: 07-30-2021 Chronic Coronary atherosclerosis and other heart disease (1 source) Presence of aortocoronary bypass graft; Translations: [PRESENCE AORTOCORONARY BYPASS GRAFT] Onset: 07-30-2021 Episodic Disorders of lipid metabolism (2 sources) Mixed hyperlipidemia; Translations: [Mixed hyperlipidemia] Onset: 08-21-2022 Chronic Essential hypertension (7 sources) Essential (primary) hypertension; Translations: [ESSENTIAL PRIMARY HYPERTENSION] Onset: 05-06-2021 Chronic Hypertension with complications and secondary hypertension (2 sources) Hypertensive heart disease with heart failure; Translations: [Hypertensive heart disease with heart failure] Onset: 12-09-2022 Chronic Other aftercare (1 source) longterm (current) use of aspirin; Translations: [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 CURRENT USE OF ASPIRIN] Onset: 07-30-2021 Episodic Other aftercare (1 source) 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; Translations: [OTH SENIOR CARE CURRENT DRUG THERAPY] Onset: 07-30-2021 Episodic Other aftercare (1 source) 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 truck driver (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) use of antithrombotics/anti platelets; Translations: [SENIOR CARE ANTITHROMBOT/ANTIPLA TLETS] Onset: 05-08-2021 Episodic Other liver diseases (2 sources) Liver disease, unspecified; Translations: [LIVER DISEASE UNSPECIFIED] Onset: 07-30-2021 Chronic Other liver diseases (2 sources) Lesion of liver; Translations: [Liver disease, unspecified] Chronic Other lower respiratory disease (2 sources) Other forms of dyspnea; Translations: [Other forms of dyspnea] Onset: 08-21-2022 Episodic Other screening for suspected conditions (not mental disorders or infectious disease) (1 source) Other specified abnormal findings of blood chemistry; Translations: [OTH SPEC ABNORMAL FINDINGS BLD CHEM] Onset: 07-30-2021 Episodic Pancreatic disorders (not diabetes) (4 sources) Recurrent pancreatitis; Translations: [Other chronic pancreatitis] Chronic Residual codes; unclassified (1 source) Acquired absence of other specified parts of digestive tract; Translations: [ACQ ABSENCE OTH PART DIGESTV TRACT] Onset: 07-30-2021 Episodic Screening and history of mental health and substance abuse codes (1 source) Personal history of nicotine dependence; Translations: [PERSONAL HISTORY OF NICOTINE DEPEND] Onset: 05-08-2021 Episodic Past or Other Problems Problem Classification Problem Date Documented Da te Episodic/Chronic Other lower respiratory disease (1 source) Shortness of breath; Translations: [SHORTNESS OF BREATH] Onset: 01-21-2021 Episodic Results Test Name Value Interpretation Reference Range Facility Office Visiton 02-19-2023 Follow-up visit [id number] Davina Cabello 1940 M Date Provider Department Center 02/19/2023 CARLA LEE [facility] Family History Problem Relation Age of Onset Coronary artery disease Father Hypertension Father Family Status - Relation Status Age at Father Level of Service:15097 [place] OFFICE/OUTPATIENT ESTABLISHED MOD MDM 30-39 MIN Normal [facility] Office Visiton 12-09-2022 Follow-up visit [id number] Davina Cabello Anny 1940 M Date Provider Department Center 12/09/2022 CELIA BISHOP [facility] No family history on file Level of Service:14615 [place] OFFICE/OUTPATIENT ESTABLISHED MOD MDM 30-39 MIN Reason for Visit and Comments: Med Refill [[id number]] Normal [facility] ISTAT XRay CREon 09-20-2021 Creatinine [Mass/Vol] 0.9 mg/dL Normal 0.6-1.3 [facility] Comment on above: Result Comment: ER/E [place] physician is notified/shown all ISTAT results. Critical values may be confirmed by laboratory testing if deemed necessary by ER attending doctor. Performed By: #### I SCRE #### [address] Point of Care testing , ISTAT GFR ( > 60 Normal [facility] Comment on above: Result Comment: GFR estimated reference range: According to KDOQI guidelines, <60 ml/min/1.73m2 is sufficient to diagnose a patient with chronic kidney disease. PERFORMED BY: [place] [address] PATHOLOGIST IT TELECOM TECHNICIAN CORINNA MCDERMOTT M.D. Performed By: #### I SCRE #### [facility] [address] Point of Care testing , ISTAT GFR (Non- Am > 60 Normal [facility] Comment on above: Performed By: #### I SCRE #### [facility] [address] [place], [place] [id number] [facility] Point of Care testing , MR abdomen wo/w conon 2021 MR abdomen wo/w con [facility] [place] [address] [place] [address] MRI Report Signed Patient: Davina Cabello MR#: [id number] : 1940 Acct:[id number] Age/Sex: 81 / M ADM Date: 09/20/21 Loc: [facility] Room: Type: [facility] Attending Dr: Hasmukh Morelos DO Ordering Provider: Hasmukh Morelos Jr, DO Date of Service: 09/20/21 MR/MR abdomen wo/w con: Chronic recurrent pancreatitis Copies to: Hasmukh Morelos Jr, DO MRI OF THE ABDOMEN WITH AND WITHOUT CONTRAST: CLINICAL HISTORY: Abnormal CT. History of pancreatitis. COMPARISON: Outside CT abdomen and pelvis 07/26/2021 TECHNIQUE: Multisequence, multiplanar imaging of the abdomen was obtained before and after the use of IV contrast. FINDINGS: Liver appears normal in contour without evidence of steatosis. Intrahepatic biliary duct dilatation is noted. Small liver cyst, left lobe the liver. The previously identified indeterminate lesion i nvolving the inferior aspect of the right lobe the liver demonstrates T2 hypointensity without abnormal enhancement. No restricted diffusion. No enhancing liver lesion is noted. A focal lesion with peripheral enhancement is identified along the lateral aspect of the inferior right lobe measuring approximately 1.1 cm in greatest axial dimension. No definitive communication is seen involving the right lobe of the liver. This finding is probably T2 hyperintense with a T1 hypointense center. Please see series 9 image 14. Hepatic and portal veins appear patent. Gallbladder has been removed. There is compensatory prominence of the CBD without evidence of stone. Spleen appears unremarkable. Pancreas appears unremarkable. Adrenal glands appear unremarkable. Cystic changes involving the kidneys. Abdominal appears normal in caliber. No bulky lymphadenopathy or ascites. No pleural effusion. Duodenal diverticulum. MR/MR abdomen wo/w con IMPRESSION: 1.THE PREVIOUSLY IDENTIFIED INDETERMINATE LESION INVOLVING THE INFERIOR ASPECT OF THE RIGHT LOBE OF THE LIVER DEMONSTRATES T2 HYPOINTENSITY WITHOUT ABNORMAL ENHANCEMENT. GIVEN THE REPORTED STABILITY SINCE 2019, BENIGN PROCESS IS FAVORED. ATTENTION ON FOLLOW-UP IS RECOMMENDED. 2. A FOCAL LESION WITH PERIPHERAL ENHANCEMENT IS IDENTIFIED ALONG THE LATERAL ASPECT THE INFERIOR RIGHT LOBE OF THE LIVER MEASURING 1.1 CM IN GREATEST AXIAL DIMENSION. NO DEFINITIVE COMMUNICATION IS SEEN INVOLVING THE RIGHT LOBE THE LIVER. FINDING IS LIKELY BENIGN AND MAY BE A SEQUELA OF PRIOR INJURY/TRAUMA. REPEAT MRI IN 6 MONTHS IS SUGGESTED TO CONFIRM STABILITY. Impression dictated by: Layton Ayala Jr., D.OErika09/20/2021 11:13 AM Dictation Location: [place] [address] Transcribed By: [facility] 09/20/21 1113 Dictated By: Layton Ayala Jr, DO 09/20/21 1057 Signed By: 09/20/21 1113 [facility] CULTURE URINEon 07-28-2021 CULTURE URINE Isolate 1 Enterobacter cloacae 50,000 cfu/ml of ORGANISM 1 Enterobacter cloacae ANTIBIOTIC M.I.C RX STATUS Piperacillin/Tazobac ribeiro <=4 S F Cefazolin >=64 R F Ceftazidime <=1 S F Ceftriaxone <=1 S F Ertapenem <=0.5 S F Imipenem 1 S F Amikacin <=2 S F Gentamicin <=1 S F Tobramycin <=1 S F Ciprofloxacin <=0.25 S F Levofloxacin <=0.12 S F Nitrofurantoin 128 R F Trimethoprim/Sulfame thoxazole <=20 S F Normal [facility] Comment on above: Performed By: #### U RCX ####[facility] [address] [place], [place] [address]QlErika Nelson Poll[address] CT ABD/PELV W CONon 07-28-19 CT ABD/PELV W CON EXAMINATION: CT ABD/PELV W CON HISTORY: Abdominal pain COMPARISON: CT abdomen and pelvis on 11/19/2019. TECHNIQUE: Axial CT images were obtained from the apex through the upper abdomen after the administration of IV contrast. Coronal and sagittal reconstruction images were also obtained. Dose reduction techniques were achieved by using automated exposure control and/or adjustment of mA and/or kV according to patient size and/or use of iterative reconstruction technique. FINDINGS: The visualized portion of the lung base demonstrate bibasilar subpleural fibrosis. The heart size is enlarged. Calcified granuloma along the medial surface of the right lower lobe. There is a small hiatal hernia. The stomach is filled with ingested debris, suggestive of slow transit/gastroparesi s. There is a 4.2 cm periampullary duodenal diverticulum. There is moderate intrahepatic and extrahepatic biliary ductal dilation, likely related to reservoir effect from cholecystectomy. There is a 11 mm low-density lesion in the subcapsular region of the left hepatic lobe, too small to further characterize. This is however stable from the study of 2019. Given the long-term stability, this is likely a benign entity, such as cyst. There is a 10 x 9 mm hypodense lesion with peripheral enhancement along the medial aspect of the inferior tip of the liver. (Series 2, image 45). This is stable from the prior study of 2019. This is an indeterminate lesion. This may represent sequela of prior subcapsular hematoma. Either way, recommend further evaluation with nonemergent CT/MRI using liver mass protocol to document a diagnosis. Previously described fluid collection in the inferior tip of the liver has resolved in the interval. There is minimal thickening of the right paracolic gutter. The spleen measures 12.8 cm in AP dimension. The pancreas demonstrates normal parenchymal enhancement. The adrenal glands appear unremarkable. The kidneys are enhancing symmetrically without any hydronephrosis. There is no nephrolithiasis. There are several subcentimeter hypodense lesions in the kidneys, suggestive of cortical cysts. These are stable from the study of 2019. No bulky retroperitoneal lymph nodes. There is a circumaortic left renal vein. The paraspinal soft tissues appear symmetric. No pathologically enlarged, iliac chain, pelvic sidewall lymph nodes. There is a right-sided inguinal hernia containing portion of bladder dome in it. There is also a fat-containing left-sided inguinal hernia. The prostate is enlarged measuring 4.2 cm in transverse dimension. Evaluation of the GI tract demonstrates pancolonic diverticulosis, moderate to severe in the sigmoid colon. Liquid feces is seen throughout the colon. There is also multiple normal caliber fluid filled ileal loops in the right lower quadrant with gradual transition to the terminal ileum. Imaging findings are suggestive of infectious/inflammat ory colitis. The appendix could not be confidently identified, however, there is no infiltrative process in the right lower quadrant. The abdominal aorta is normal in caliber with moderate diffuse calcified plaque in it. There is severe calcified plaque at the origin of the bilateral renal arteries. There is also moderate to severe calcified plaque at the origin of the proximal SMA. No gross abnormalities of the abdominal wall. Bone windows demonstrate no suspicious osseous lesion. Incidental findings of marked fusion of L5 spinous process. IMPRESSION: Mild bibasilar subpleural fibrosis. Cardiomegaly. Small hiatal hernia. Imaging findings are suggestive of slow transit/mild gastroparesis. Stable hepatic lesions, likely cysts. In addition to that, hypodense subcapsular lesion in the inferior tip of the liver is stable from the study of 2019. Differential diagnoses include sequela of prior subcapsular hematoma. Either way, recommend further evaluation with nonemergent CT/MRI using liver mass protocol to document a diagnosis. Previously described fluid collection along the inferior tip of the liver has resolved in the interval. Moderate intrahepatic and extrahepatic biliary ductal dilation, likely related to reservoir effect from cholecystectomy. Periampullary duodenal diverticulum. Bilateral renal cortical cysts. No hydronephrosis/nephr olithiasis. Right inguinal hernia containing portion of bladder dome in it. Fat-containing left-sided inguinal hernia. Prostatomegaly. Imaging findings are suggestive of infectious/inflammat ory enterocolitis. Colonic diverticulosis. Electronically authenticated by: ANDRES GOINS Date: 2021-07-27 12:43 Normal [facility] CBC AUTO DIFFon 07-26-2021 BASO # 0.1 103/ul Normal 0.0-0.1 [facility] Comment on above: Performed By: #### C BC ####[facility] [address] [place] [id number]. Nelson Pollock Basophils/100 WBC (Bld) 0.5 % Normal 0.2-2.0 [facility] Comment on above: Performed By: #### C BC ####[facility] [address] [place] [address]DrErika Pollock EO # 0.2 103/ul Normal 0.0-0.7 [facility] Comment on above: Performed By: #### C BC ####[facility] [address] [place] [address]Dr. Nelson Pollock Eosinophils/100 WBC (Bld) 2.1 % Normal 0.9-7.0 [facility] Comment on above: Performed By: #### C BC ####[facility] [address] [place] [address]Dr. Nelson Pollock Erythrocyte distribution width (RBC) [Ratio] 13.7 % Normal 11.0-15.0 [facility] Comment on above: Performed By: #### C BC ####[facility] [address] [place], [place] [address]Dr. Nelson Pollock Hematocrit (Bld) [Volume fraction] 42.8 % Normal 42.0-54.0 [facility] Comment on above: Performed By: #### C BC ####[facility] [address] [place], [place] [address]Dr. Nelson Pollock Hemoglobin (Bld) [Mass/Vol] 14.5 g/dL Normal 14.0-18.0 [facility] Comment on above: Performed By: #### C BC ####[facility] [address] [place], [place] [address]Dr. Nelson Pollock IG # 0.04 10e3/ul Critically high 0.00-0.[address] [facility] Comment on above: Performed By: #### C BC ####[facility] [address] [place], [place] [address]Dr. Nelson Pollock IG % 0.4 % Normal 0.0-0.5 [facility] Comment on above: Performed By: #### C BC ####[facility] [address] [place], [place] [address]Dr. Nelson Pollock LYMPH # 1.7 103/ul Normal 1.2-3.8 [facility] Comment on above: Performed By: #### C BC ####[facility] [address] [place], [place] [address]Dr. Nelson Pollock Lymphocytes/100 WBC (Bld) 15.6 % Critically low 20.5-60.0 [facility] Comment on above: Performed By: #### C BC ####[facility] [address] [place] [address]Dr. Nelson Phill MANUAL DIFF REQ NO Normal [facility] Comment on above: Performed By: #### C BC ####[facility] [address] [place] [address]Dr. Nelson Pollock MCH (RBC) [Entitic mass] 29.2 pg Normal 25.9-34.0 [facility] Comment on above: Performed By: #### C BC ####[facility] [address] [place] [address]Dr. Nelson Phill MCHC (RBC) [Mass/Vol] 33.9 g/dL Normal 29.9-35.2 [facility] Comment on above: Performed By: #### C BC ####[facility] [address] [place] [address]Dr. Cloverkusum Pollock MCV (RBC) [Entitic vol] 86.1 fL Normal 80.0-94.0 [facility] Comment on above: Performed By: #### C BC ####[facility] [address] [place], [place] [address]Dr. Nelson Phill MONO # 0.8 103/ul Normal 0.3-0.8 [facility] Comment on above: Performed By: #### C BC ####[facility] [address] [place] [address]Dr. Cloverkusum Pollock Monocytes/100 WBC (Bld) 7.3 % Normal 1.7-12.0 [facility] Comment on above: Performed By: #### C BC ####[facility] [address] [place] [address]Dr. Cloverkusum Phill NEUT # 8.1 103/ul Critically high 1.4-6.5 [facility] Comment on above: Performed By: #### C BC ####[facility] [address] [place], [place] [address]Dr. Nelson Pollock Neutrophils/100 WBC (Bld) 74.1 % Normal 43.0-75.0 [facility] Comment on above: Performed By: #### C BC ####[facility] [address] [place] [address]Dr. Nelson Pollock Platelet mean volume (Bld) [Entitic vol] 10.2 fL Normal 9.5-13.5 [facility] Comment on above: Performed By: #### C BC ####[facility] [address] [place] [address]Dr. Nelson Pollock PLT 191 103/ul Normal 150-450 [facility] Comment on above: Performed By: #### C BC ####[facility] [address] [place] [address]Dr. Nelson Pollock RBC 4.97 106/ul Normal 4.70-6.10 [facility] Comment on above: Performed By: #### C BC ####[facility] [address] [place] [address]Dr. Nelson Pollock WBC 11.0 103/ul Normal 4.0-11.0 [facility] Comment on above: Performed By: #### C BC ####[facility] [address] [place], [place] [address]DrErika Pollock ER URINE PROFILEon 2 Bilirubin Ql (U) Negative Normal NEGATIVE [facility] Comment on above: Performed By: #### DAT DIALLORO #### [facility] [address] [place] [address] Dr. Nelson Pollock Clarity (U) SL CLOUDY Abnormal CLEAR [facility] Comment on above: Performed By: #### DAT DIALLORO #### [facility] [address] [place] [address] Dr. Nelson Pollock Color (U) LT. YELLOW Normal YELLOW [facility] Comment on above: Performed By: #### DAT DIALLORO #### [facility] [address] [place] [address] Dr. Nelson Pollock ERUAHJason A micrscopic examination will be performed if indicated. Normal [facility] Comment on above: Performed By: #### DAT DIALLORO #### [facility] [address] [place] [address] Dr. Nelson Pollock Glucose Ql (U) Negative Normal NEGATIVE [facility] Comment on above: Performed By: #### Anny THOMPSONR, UMICRO #### [facility] [address] [place] [address] Dr. Nelson Pollock Hemoglobin Ql (U) Negative Normal NEGATIVE [facility] Comment on above: Performed By: #### E RUR, UMICRO #### [facility] [address] [place] [address] [address] Nelson Pollock Ketones Ql (U) Negative Normal NEGATIVE [facility] Comment on above: Performed By: #### E RUR, UMICRO #### [facility] [address] [place] [address] [address] Nelson Pollock LEUKOCYTES SMALL Abnormal NEGATIVE [facility] Comment on above: Performed By: #### E ESRA UMICRO #### [facility] [address] [place] [address] Dr. Nelson Pollock Nitrite Ql (U) Negative Normal NEGATIVE [facility] Comment on above: Performed By: #### Anny ZAMORA UMICRO #### [facility] [address] [place] [address] Dr. Nelson Pollock pH (U) 5.0 [pH] Normal 5-9 [facility] Comment on above: Performed By: #### Anny ZAMORA UMICRO #### [facility] [address] [place] [address] Dr. Nelson Pollock SPEC GRAVITY <=1.005 Abnormal 1.005-<=1.025 [facility] Comment on above: Performed By: #### Anny ZAMORA UMICRO #### [facility] [address] [place] [address] Dr. Nelson Pollock UA PROTEIN Negative Normal NEGATIVE/ TRACE [facility] Comment on above: Performed By: #### Anny ZAMORA UMICRO #### [facility] [address] [place] [address] Dr. Nelson Pollock UR MICRO IND INDICATED Normal [facility] Comment on above: Performed By: #### Anny ZAMORA UMICRO #### [facility] [address] [address] [address] Nelson Pollock Urobilinogen Qn (U) 0.2 {Christopher'U}/dL Normal 0.2 - 1. 0 [facility] Comment on above: Performed By: #### E LEISA ZAMORA #### [facility] [address] [address] [address] Nelson Pollock LACTATE/LACTIC ACIDon 2021 Lactate [Moles/Vol] 1.2 mmol/L Normal 0.7-2.0 [facility] Comment on above: Performed By: #### L ACT #### [facility] [address] [address] [address] Nelson Pollock LIPASEon 07-26-2021 Lipase [Catalytic activity/Vol] 865.0 U/L Critically high 23.0-300.0 [facility] Comment on above: Performed By: #### L IPA HSTROPN, CMP ####[facility] [address] [address]DrErika Pollock PROF 14(COMP METB)on 022 Albumin [Mass/Vol] 4.1 g/dL Normal 3.4-5.0 [facility] Comment on above: Performed By: #### L IPA HSTROPN, CMP ####[facility] [address] [address]DrErika Pollock Albumin/Globulin [Mass ratio] 1.2 {ratio} Normal [facility] Comment on above: Performed By: #### L IPA, HSTROPN, CMP ####[facility] [address] [address]DrErika Pollock ALP [Catalytic activity/Vol] 89 U/L Normal 46-116 [facility] Comment on above: Performed By: #### L IPA, HSTROPN, CMP ####[facility] [address] [address]DrErika Pollock ALT [Catalytic activity/Vol] 43 U/L Normal 16-63 [facility] Comment on above: Performed By: #### L IPA, HSTROPN, CMP ####[facility] [address] [address]Dr. Nelson Pollock Anion gap [Moles/Vol] 15.5 mmol/L Normal [facility] Comment on above: Performed By: #### L IPA, HSTROPN, CMP ####[facility] [address] [address]Dr. Nelson Pollock AST [Catalytic activity/Vol] 53 U/L Critically high 15-37 [facility] Comment on above: Performed By: #### L IPA, HSTROPN, CMP ####[facility] [address] [place], [place] [address]Dr. Nelson Pollock Bilirubin [Mass/Vol] 2.4 mg/dL Critically high 0.2-1.3 [facility] Comment on above: Performed By: #### L IPA, HSTROPN, CMP ####[facility] [address] [place], [place] [address]Dr. Nelson Pollock Calcium [Mass/Vol] 8.5 mg/dL Normal 8.5-10.1 [facility] Comment on above: Performed By: #### L IPA, HSTROPN, CMP ####[facility] [address] [place], [place] [address]Dr. Nelson Pollock Chloride [Moles/Vol] 105 mmol/L Normal 98-107 [facility] Comment on above: Performed By: #### L IPA, HSTROPN, CMP ####[facility] [address] [place], [place] [address]Dr. Nelson Pollock CO2 [Moles/Vol] 22.3 mmol/L Normal 22.0-30.[address] [facility] Comment on above: Performed By: #### L IPA, HSTROPN, CMP ####[facility] [address] [place], [place] [address]Dr. Nelson Pollock Creatinine [Mass/Vol] 1.06 mg/dL Normal 0.66-1.25 [facility] Comment on above: Performed By: #### L IPA, HSTROPN, CMP ####[facility] [address] [address]Dr. Nelson Pollock EGFR-AF CONGOLESE >60 Normal >=[address] [facility] Comment on above: Performed By: #### L IPA, HSTROPN, CMP ####[facility] [address] [address]Dr. Nelson Pollock EGFR-NON AF CONGOLESE >60 Normal >=60 [facility] Comment on above: Performed By: #### L IPA, HSTROPN, CMP ####[facility] [address] [address]Dr. Nelson Pollock Globulin (S) [Mass/Vol] 3.4 g/dL Normal [facility] Comment on above: Performed By: #### L IPA, HSTROPN, CMP ####[facility] [address] [place], [place] [address]Dr. Nelson Pollock Glucose [Mass/Vol] 154 mg/dL Critically high 74-106 [facility] Comment on above: Performed By: #### L IPA, HSTROPN, CMP ####[facility] [address] [address]Dr. Nelson Pollock Potassium [Moles/Vol] 3.8 mmol/L Normal 3.4-5.0 [facility] Comment on above: Performed By: #### L IPA, HSTROPN, CMP ####[facility] [address] [address]Dr. Nelson Pollock Protein [Mass/Vol] 7.5 g/dL Normal 6.1-8.2 [facility] Comment on above: Performed By: #### L IPA, HSTROPN, CMP ####[facility] [address] [address]Dr. Nelson Pollock Sodium [Moles/Vol] 139 mmol/L Normal 137-145 [facility] Comment on above: Performed By: #### L IPA, HSTROPN, CMP ####[facility] [address] [address]Dr. Nelson Pollock Urea nitrogen [Mass/Vol] 25.0 mg/dL Critically high 7.0-18.0 [facility] Comment on above: Performed By: #### L IPA, HSTROPN, CMP ####[facility] [address] [address]Dr. Nelson Pollock Urea nitrogen/Creatinine [Mass ratio] 23.6 mg/mg Normal [facility] Comment on above: Performed By: #### L IPA, HSTROPN, CMP ####[facility] [address] [address]Dr. Nelson Pollock PROTIMEon 07-26-2021 INR Coag (PPP) [Relative time] 1.07 {INR} Normal [facility] Comment on above: Performed By: #### P TT, PT ####[facility] [address] [place], [place] [address]Dr. Nelson Pollock INR GUIDELINES SEE BELOW Normal [facility] Comment on above: Result Comment: ARTEM RED INR: 2.0 - 3.0 CONDITIONS NOT LISTED BELOW 2.5 - 3.5 FOR PROSTHETIC HEART VALVE REPLACEMENT 2.5 - 3.5 RECURRENT THROMBOSIS Performed By: #### P TT, PT ####[facility] [address] [place], [place] [address]Dr. Nelson Pollock PT Coag (PPP) [Time] 11.5 s Normal 9.0-11.6 [facility] Comment on above: Performed By: #### P TT, PT ####[facility] [address] [place], [place] [address]Dr. Nelson Pollock PTTon 07-26-2021 aPTT Coag (Bld) [Time] 24.9 s Normal 22.3-36.2 [facility] Comment on above: Performed By: #### P TT, PT ####[facility] [address] [place], [place] [address]Dr. Nelson Pollock TROPONIN, HIGH SENSITIVITYon 07-26-2021 HSTROP 38.6 pg/mL Normal 4.0-42.2 [facility] Comment on above: Result Comment: CUT- OFF POINTS HAVE BEEN ESTABLISHED BASED ON THE FOURTH UNIVERSAL DEFINITIONS OF MYOCARDIAL INFARCTION. THE UPPER REFERENCE LIMIT (URL) OF TROPONIN, DEFINED THE 99TH PERCENTILE OF cTnI DISTRIBUTION IN A REFERENCE POPULATION, HAS BEEN CONFIRMED THE DECISION THRESHOLD FOR [place] DIAGNOSIS. Performed By: #### L IPA, HSTROPN, CMP ####[facility] [address] [address]Dr. Nelson Pollock URINE MICROSCOPIC ONLYon BACTERIA MODERATE Abnormal NONE SEEN [facility] Comment on above: Performed By: #### E RUR, UMICRO #### [facility] [address] [place] [address] Dr. Nelson Pollock Bacteria identified Cx Nom (U) INDICATED Normal [facility] Comment on above: Performed By: #### E RUR, UMICRO #### [facility] [address] [place] [address] Dr. Nelson Pollock CAST NONE SEEN Normal NONE SEEN [facility] Comment on above: Performed By: #### E RUR, UMICRO #### [facility] [address] [place] [address] Dr. Nelson Pollock Crystals LM Nom (Urine sed) NONE SEEN Normal NONE SEEN [facility] Comment on above: Performed By: #### E RUR, UMICRO #### [facility] [address] [place] [address] Dr. Nelson Pollock Epithelial cells LM Ql (Urine sed) RARE Normal NONE SEEN /RARE [facility] Comment on above: Performed By: #### E RUR, UMICRO #### [facility] [address] [place] [address] Dr. Nelson Pollock MUCOUS NONE SEEN Normal NONE SEEN [facility] Comment on above: Performed By: #### E RUR, UMICRO #### [facility] [address] [place] [address] Dr. Nelson Pollock RBC 2-5 Abnormal 0-2 [facility] Comment on above: Performed By: #### E RUR, UMICRO #### [facility] [address] [place] [address] Dr. Nelson Pollock WBC (U) [#/Vol] /uL Abnormal NONE SEEN [facility] Comment on above: Performed By: #### E RUR, UMICRO #### [facility] [address] [place], [place] [address] Dr. Nelson Pollock XR CHEST 1 Von 07-26-2021 XR CHEST 1 V EXAM: CHEST 1 VIEW HISTORY: Abdominal pain TECHNIQUE: Chest, one view. COMPARISON: 05/06/2021 FINDINGS: There are low lung volumes with bibasilar atelectasis. No focal consolidation, pleural effusion, or pneumothorax. Pulmonary vasculature is within normal limits. There are median sternotomy changes and upper limits of normal heart size. IMPRESSION: 1. No acute cardiopulmonary disease. Electronically authenticated by: PERNELL SARMIENTO Date: 2021-07-26 16:40 Normal [facility] Basic Metabolic Panelon 05-22 Anion gap [Moles/Vol] 16 mmol/L Normal 12-20 [facility] Comment on above: Result Comment: Effe ctive 04/25/2019 reference range changed. Performed By: #### B MP #### [facility] [address] [place], [place] [id number] Calcium [Mass/Vol] 9.5 mg/dL Normal 8.6-10.2 [facility] Comment on above: Performed By: #### B MP #### [facility] [address] [place], [place] [id number] Chloride [Moles/Vol] 106 mmol/L Normal 98-107 [facility] Comment on above: Performed By: #### B MP #### [facility] [address] [place], [place] [id number] CO2 [Moles/Vol] 24 mmol/L Normal 20-31 [facility] Comment on above: Performed By: #### B MP #### [facility] [address] [place], [place] [id number] Creatinine [Mass/Vol] 0.9 mg/dL Normal 0.7-1.4 [facility] Comment on above: Performed By: #### B MP #### [facility] [address] [place], [place] [id number] eGFRAA 100 mL/min/1.73m2 Normal >60 [facility] Comment on above: Performed By: #### B MP #### [facility] [address] [place], [place] [id number] eGFRNAA 83 mL/min/1.73m2 Normal >60 [facility] Comment on above: Performed By: #### B MP #### [facility] [address] [place], [place] [id number] Glucose [Mass/Vol] 85 mg/dL Normal 65-99 [facility] Comment on above: Result Comment: For FASTING Glucose --- ADA reference ranges: Normal 65-99 mg/dl Prediabetes 100-125 Diabetes >/= 126 Performed By: #### B MP #### [facility] [address] [place], [place] [id number] Potassium [Moles/Vol] 4.1 mmol/L Normal 3.5-5.5 [facility] Comment on above: Performed By: #### B MP #### [facility] [address] [place], [place] [id number] Sodium [Moles/Vol] 142 mmol/L Normal 135-146 [facility] Comment on above: Performed By: #### B MP #### [facility] [address] [place], [place] [id number] Urea nitrogen [Mass/Vol] 16 mg/dL Normal 7-25 [facility] Comment on above: Performed By: #### B MP #### [facility] [address] [place], [place] [id number] CBC AUTO DIFFon 05-06-2021 BASO # 0.1 103/ul Normal 0.0-0.1 [facility] Comment on above: Performed By: #### C BC #### [facility] [address] [address] [address] Nelson Pollock Basophils/100 WBC (Bld) 0.8 % Normal 0.2-2.0 [facility] Comment on above: Performed By: #### C BC #### [facility] [address] [address] [address] Nleson Pollock EO # 0.3 103/ul Normal 0.0-0.7 [facility] Comment on above: Performed By: #### C BC #### [facility] [address] [place] [address] Dr. Nelson Pollock Eosinophils/100 WBC (Bld) 2.8 % Normal 0.9-7.0 [facility] Comment on above: Performed By: #### C BC #### [facility] [address] [place] [address] Dr. Nelson Pollock Erythrocyte distribution width (RBC) [Ratio] 13.2 % Normal 11.0-15.0 [facility] Comment on above: Performed By: #### C BC #### [facility] [address] [place] [address] Dr. Nelson Pollock Hematocrit (Bld) [Volume fraction] 45.8 % Normal 42.0-54.0 [facility] Comment on above: Performed By: #### C BC #### [facility] [address] [place] [address] Dr. Nelson Pollock Hemoglobin (Bld) [Mass/Vol] 15.6 g/dL Normal 14.0-18.0 [facility] Comment on above: Performed By: #### C BC #### [facility] [address] [place] [address] Dr. Nelson Pollock IG # 0.04 10e3/ul Critically high 0.00-0.[address] [facility] Comment on above: Performed By: #### C BC #### [facility] [address] [place] [address] Dr. Nelson Pollock IG % 0.4 % Normal 0.0-0.5 [facility] Comment on above: Performed By: #### C BC #### [facility] [address] [place] [address] Dr. Nelson Pollock LYMPH # 3.1 103/ul Normal 1.2-3.8 [facility] Comment on above: Performed By: #### C BC #### [facility] [address] [place] [address] Dr. Nelson Pollock Lymphocytes/100 WBC (Bld) 27.2 % Normal 20.5-60.0 [facility] Comment on above: Performed By: #### C BC #### [facility] [address] [place] [address] Dr. Nelson Pollock MANUAL DIFF REQ NO Normal [facility] Comment on above: Performed By: #### C BC #### [facility] [address] [place] [address] Dr. Nelson Pollock MCH (RBC) [Entitic mass] 29.1 pg Normal 25.9-34.0 [facility] Comment on above: Performed By: #### C BC #### [facility] [address] [place] [address] Dr. Nelson Pollock MCHC (RBC) [Mass/Vol] 34.1 g/dL Normal 29.9-35.2 [facility] Comment on above: Performed By: #### C BC #### [facility] [address] [place] [address] Dr. Nelson Pollock MCV (RBC) [Entitic vol] 85.3 fL Normal 80.0-94.0 [facility] Comment on above: Performed By: #### C BC #### [facility] [address] [place] [address] Dr. Nelson Pollock MONO # 1.0 103/ul Critically high 0.3-0.8 [facility] Comment on above: Performed By: #### C BC #### [facility] [address] [place] [address] Dr. Nelson Pollock Monocytes/100 WBC (Bld) 9.0 % Normal 1.7-12.0 [facility] Comment on above: Performed By: #### C BC #### [facility] [address] [place] [address] Dr. Nelson Pollock NEUT # 6.8 103/ul Critically high 1.4-6.5 [facility] Comment on above: Performed By: #### C BC #### [facility] [address] [place] [address] Dr. Nelson Pollock Neutrophils/100 WBC (Bld) 59.8 % Normal 43.0-75.0 [facility] Comment on above: Performed By: #### C BC #### [facility] [address] [place] [address] Dr. Nelson Pollock Platelet mean volume (Bld) [Entitic vol] 10.3 fL Normal 9.5-13.5 [facility] Comment on above: Performed By: #### C BC #### [facility] [address] [address] [address] Nelson Pollock PLT 196 103/ul Normal 150-450 [facility] Comment on above: Performed By: #### C BC #### [facility] [address] [address] [address] Nelson Pollock RBC 5.37 106/ul Normal 4.70-6.10 [facility] Comment on above: Performed By: #### C BC #### [facility] [address] [address] [address] Nelson Pollock WBC 11.3 103/ul Critically high 4.0-11.[address] [facility] Comment on above: Performed By: #### C BC #### [facility] [address] [address] [address] Nelson Pollock PROF CHEM 8 (BAS METB)on Anion gap [Moles/Vol] 10.8 mmol/L Normal [facility] Comment on above: Performed By: #### B JOVANI HSTROPN ####[facility] [address] [address]DrErika Pollock Calcium [Mass/Vol] 8.8 mg/dL Normal 8.4-10.2 [facility] Comment on above: Performed By: #### B JOVANI HSTROPN ####[facility] [address] [address]DrErika Pollock Chloride [Moles/Vol] 104 mmol/L Normal 98-107 [facility] Comment on above: Performed By: #### B JOVANI HSTROPN ####[facility] [address] [address]DrErika Pollock CO2 [Moles/Vol] 26.7 mmol/L Normal 22.0-30.[address] [facility] Comment on above: Performed By: #### B MP, HSTROPN ####[facility] [address] [address]Dr. Nelson Pollock Creatinine [Mass/Vol] 0.95 mg/dL Normal 0.66-1.25 [facility] Comment on above: Performed By: #### B JOVANI, HSTROPN ####[facility] [address] [address]Dr. Nelson Pollock EGFR-AF CONGOLESE >60 Normal >=[address] [facility] Comment on above: Performed By: #### B JOVANI, HSTROPN ####[facility] [address] [address]Dr. Nelson Pollock EGFR-NON AF CONGOLESE >60 Normal >=60 [facility] Comment on above: Performed By: #### B JOVANI, HSTROPN ####[facility] [address] [address]Dr. Cloverkusum Pollock Glucose [Mass/Vol] 121 mg/dL Critically high 74-106 [facility] Comment on above: Performed By: #### B JOVANI, HSTROPN ####[facility] [address] [address]Dr. Cloverkusum Pollock Potassium [Moles/Vol] 3.5 mmol/L Normal 3.4-5.0 [facility] Comment on above: Performed By: #### B JOVANI, HSTROPN ####[facility] [address] [address]Dr. Nelson Pollock Sodium [Moles/Vol] 138 mmol/L Normal 137-145 [facility] Comment on above: Performed By: #### B JOVANI, HSTROPN ####[facility] [address] [address]Dr. Nelson Pollock Urea nitrogen [Mass/Vol] 12.0 mg/dL Normal 9.0-20.0 [facility] Comment on above: Performed By: #### B JOVANI, HSTROPN ####[facility] [address] [address]Dr. Cloverkusum Phill Urea nitrogen/Creatinine [Mass ratio] 12.6 mg/mg Normal [facility] Comment on above: Performed By: #### B JOVANI, HSTROPN ####[facility] [address] [place], [place] [address]WdDr. Nelson Pollock TROPONIN, HIGH SENSITIVITYon 05-06-2021 HSTROP 41.0 pg/mL Normal 4.0-42.2 [facility] Comment on above: Result Comment: CUT- OFF POINTS HAVE BEEN ESTABLISHED BASED ON THE FOURTH UNIVERSAL DEFINITIONS OF MYOCARDIAL INFARCTION. THE UPPER REFERENCE LIMIT (URL) OF TROPONIN, DEFINED THE 99TH PERCENTILE OF cTnI DISTRIBUTION IN A REFERENCE POPULATION, HAS BEEN CONFIRMED THE DECISION THRESHOLD FOR [place] DIAGNOSIS. Performed By: #### B JOVANI HSTROPN ####[facility] [address] [id number]. Nelson Pollock XR CHEST 1 Von 05-06-2021 XR CHEST 1 V EXAM: XR CHEST 1 V HISTORY: Hypertensive disorder COMPARISON: 01/06/2021 TECHNIQUE: Single frontal view of the chest. FINDINGS: Tubes/lines/devices: None. Lungs: Adequate inflation. No evidence of pneumonia or pulmonary edema. Pleura: No pneumothorax. No pleural effusion. Heart and mediastinum: Mild cardiomegaly. Median sternotomy wires/closure devices intact. Bones/soft tissues: No acute osseous findings. Unremarkable soft tissues. Abdomen: Unremarkable visualized upper abdomen. IMPRESSION: Cardiomegaly without acute pulmonary findings. Electronically authenticated by: CARLTON BRAVO Date: 2021-05-06 20:10 Normal [facility] BNPon 01-06-2021 Natriuretic peptide B (Bld) [Mass/Vol] 268.0 pg/mL Normal <=1,800.0 [facility] Comment on above: Performed By: #### B GALLERY MANAGER #### [facility] [address] [address] [address] Nelson Pollock CBC AUTO DIFFon 01-06-2021 BASO # 0.1 103/ul Normal 0.0-0.1 [facility] Comment on above: Performed By: #### C BC #### [facility] [address] [address] [address] Nelson Pollock Basophils/100 WBC (Bld) 0.6 % Normal 0.2-2.0 [facility] Comment on above: Performed By: #### C BC #### [facility] [address] [address] [address] Nelson Pollock EO # 0.2 103/ul Normal 0.0-0.7 [facility] Comment on above: Performed By: #### C BC #### [facility] [address] [place] [address] Dr. Nelson Pollock Eosinophils/100 WBC (Bld) 1.6 % Normal 0.9-7.0 [facility] Comment on above: Performed By: #### C BC #### [facility] [address] [place] [address] Dr. Nelson Pollock Erythrocyte distribution width (RBC) [Ratio] 13.9 % Normal 11.0-15.0 [facility] Comment on above: Performed By: #### C BC #### [facility] [address] [place] [address] Dr. Nelson Pollock Hematocrit (Bld) [Volume fraction] 46.4 % Normal 42.0-54.0 [facility] Comment on above: Performed By: #### C BC #### [facility] [address] [place] [address] Dr. Nelson Pollock Hemoglobin (Bld) [Mass/Vol] 15.5 g/dL Normal 14.0-18.0 [facility] [place] Comment on above: Performed By: #### C BC #### [facility] [address] [place] [address] Dr. Nelson Pollock IG # 0.04 10e3/ul Critically high 0.00-0.[address] [facility] Comment on above: Performed By: #### C BC #### [facility] [address] [place] [address] Dr. Nelson Pollock IG % 0.4 % Normal 0.0-0.5 [facility] Comment on above: Performed By: #### C BC #### [facility] [address] [place] [address] Dr. Nelson Pollock LYMPH # 2.3 103/ul Normal 1.2-3.8 [facility] Comment on above: Performed By: #### C BC #### [facility] [address] [place] [address] Dr. Nelson Pollock Lymphocytes/100 WBC (Bld) 22.8 % Normal 20.5-60.0 [facility] Comment on above: Performed By: #### C BC #### [facility] [address] [place] [address] Dr. Nelson Pollock MANUAL DIFF REQ NO Normal [facility] Comment on above: Performed By: #### C BC #### [facility] [address] [place] [address] Dr. Nelson Pollock MCH (RBC) [Entitic mass] 28.3 pg Normal 25.9-34.0 [facility] Comment on above: Performed By: #### C BC #### [facility] [address] [place] [address] Dr. Nelson Pollock MCHC (RBC) [Mass/Vol] 33.4 g/dL Normal 29.9-35.2 [facility] Comment on above: Performed By: #### C BC #### [facility] [address] [place] [address] Dr. Nelson Pollock MCV (RBC) [Entitic vol] 84.7 fL Normal 80.0-94.0 [facility] Comment on above: Performed By: #### C BC #### [facility] [address] [place] [address] Dr. Nelson Pollock MONO # 0.8 103/ul Normal 0.3-0.8 [facility] Comment on above: Performed By: #### C BC #### [facility] [address] [place] [address] Dr. Nelson Pollock Monocytes/100 WBC (Bld) 8.0 % Normal 1.7-12.0 [facility] Comment on above: Performed By: #### C BC #### [facility] [address] [place] [address] Dr. Nelson Pollock NEUT # 6.8 103/ul Critically high 1.4-6.5 [facility] Comment on above: Performed By: #### C BC #### [facility] [address] [place] [address] Dr. Nelson Pollock Neutrophils/100 WBC (Bld) 66.6 % Normal 43.0-75.0 [facility] Comment on above: Performed By: #### C BC #### [facility] [address] [place] [address] Dr. Nelson Pollock Platelet mean volume (Bld) [Entitic vol] 10.6 fL Normal 9.5-13.5 [facility] Comment on above: Performed By: #### C BC #### [facility] [address] [place] [address] Dr. Nelson Pollock PLT 201 103/ul Normal 150-450 [facility] Comment on above: Performed By: #### C BC #### [facility] [address] [place] [address] Dr. Nelson Pollock RBC 5.48 106/ul Normal 4.70-6.10 [facility] Comment on above: Performed By: #### C BC #### [facility] [address] [place] [address] Dr. Nelson Pollock WBC 10.2 103/ul Normal 4.0-11.0 [facility] Comment on above: Performed By: #### C BC #### [facility] [address] [place] [address] Dr. Nelson Pollock PROF 14(COMP METB)on 021 Albumin [Mass/Vol] 3.8 g/dL Normal 3.5-5.0 [facility] Comment on above: Performed By: #### C JOVANI HSTROPN #### [facility] [address] [place] [address] Dr. Nelson Pollock Albumin/Globulin [Mass ratio] 1.2 {ratio} Normal [facility] Comment on above: Performed By: #### C JOVANI HSTROPN #### [facility] [address] [place] [address] Dr. Nelson Pollock ALP [Catalytic activity/Vol] 73 U/L Normal 38-126 [facility] Comment on above: Performed By: #### C JOVANI, HSTROPN #### [facility] [address] [address] [address] Nelson Pollock ALT [Catalytic activity/Vol] 20 U/L Critically low 21-72 [facility] Comment on above: Performed By: #### C MP, HSTROPN #### [facility] [address] [address] [address] Nelson Pollock Anion gap [Moles/Vol] 11.0 mmol/L Normal [facility] Comment on above: Performed By: #### C MP, HSTROPN #### [facility] [address] [address] [address] Nelson Pollock AST [Catalytic activity/Vol] 18 U/L Normal 17-59 [facility] Comment on above: Performed By: #### C MP, HSTROPN #### [facility] [address] [place] [address] Dr. Nelson Pollock Bilirubin [Mass/Vol] 1.7 mg/dL Critically high 0.2-1.3 [facility] Comment on above: Performed By: #### C MP, HSTROPN #### [facility] [address] [address] [address] Nelson Pollock Calcium [Mass/Vol] 8.9 mg/dL Normal 8.4-10.2 [facility] Comment on above: Performed By: #### C MP, HSTROPN #### [facility] [address] [address] [address] Nelson Pollock Chloride [Moles/Vol] 105 mmol/L Normal 98-107 [facility] Comment on above: Performed By: #### C MP, HSTROPN #### [facility] [address] [address] [address] Nelson Pollock CO2 [Moles/Vol] 26.5 mmol/L Normal 22.0-30.0 [facility] Comment on above: Performed By: #### C MP, HSTROPN #### [facility] [address] [address] [address] Nelson Pollock Creatinine [Mass/Vol] 0.82 mg/dL Normal 0.66-1.25 [facility] Comment on above: Performed By: #### C MP, HSTROPN #### [facility] [address] [place] [address] Dr. Nelson Pollock EGFR-AF CONGOLESE >60 Normal >=60 [facility] Comment on above: Performed By: #### C MP, HSTROPN #### [facility] [address] [address] [address] Nelson Pollock EGFR-NON AF CONGOLESE >60 Normal >=60 [facility] Comment on above: Performed By: #### C MP, HSTROPN #### [facility] [address] [place] [address] Dr. Nelson Pollock Globulin (S) [Mass/Vol] 3.3 g/dL Normal [facility] Comment on above: Performed By: #### C MP, HSTROPN #### [facility] [address] [place] [address] Dr. Nelson Pollock Glucose [Mass/Vol] 87 mg/dL Normal 74-106 [facility] Comment on above: Performed By: #### C MP, HSTROPN #### [facility] [address] [place] [address] Dr. Nelson Pollock Potassium [Moles/Vol] 3.5 mmol/L Normal 3.4-5.0 [facility] Comment on above: Performed By: #### C MP, HSTROPN #### [facility] [address] [place] [address] Dr. Nelson Pollock Protein [Mass/Vol] 7.1 g/dL Normal 6.1-8.2 [facility] Comment on above: Performed By: #### C MP, HSTROPN #### [facility] [address] [place] [address] Dr. Nelson Pollock Sodium [Moles/Vol] 139 mmol/L Normal 137-145 [facility] Comment on above: Performed By: #### C MP, HSTROPN #### [facility] [address] [place] [address] Dr. Nelson Pollock Urea nitrogen [Mass/Vol] 13.0 mg/dL Normal 9.0-20.0 [facility] Comment on above: Performed By: #### C JOVANI, HSTROPN #### [facility] [address] [address] [address] Nelson Pollock Urea nitrogen/Creatinine [Mass ratio] 15.9 mg/mg Normal [facility] Comment on above: Performed By: #### C JOVANI, HSTROPN #### [facility] [address] [address] [address] Nelson Pollock TROPONIN, HIGH SENSITIVITYon 01-06-2021 HSTROP 43.4 pg/mL Critically high 4.0-42.2 [facility] Comment on above: Result Comment: CUT- OFF POINTS HAVE BEEN ESTABLISHED BASED ON THE FOURTH UNIVERSAL DEFINITIONS OF MYOCARDIAL INFARCTION. THE UPPER REFERENCE LIMIT (URL) OF TROPONIN, DEFINED THE 99TH PERCENTILE OF cTnI DISTRIBUTION IN A REFERENCE POPULATION, HAS BEEN CONFIRMED THE DECISION THRESHOLD FOR VT DIAGNOSIS. Performed By: #### C JOVANI, HSTROPN #### [facility] [address] [address] [address] Nelson Pollock XR CHEST 1 Von 01-06-2021 XR CHEST 1 V EXAMINATION: XR CHEST 1 V HISTORY: CHEST PAIN, UNSPECIFIED , hypertension COMPARISON: XR chest 07/01/2020 FINDINGS: LUNGS: No significant pulmonary parenchymal abnormalities. VASCULATURE: No increased pulmonary vasculature. PLEURA: No pneumothorax, effusion, or pleural thickening. CARDIAC: Approaches upper limits of normal in size. MEDIASTINUM: No visible mass or adenopathy. BONES: No fracture or visible bone lesion. OTHER: Negative. IMPRESSION: 1. No acute cardiopulmonary process. Electronically authenticated by: JASKARAN CARRERA Date: 2021-01-06 11:24 Normal [facility] BASIC METABOLIC PANELon 03- Calcium [Mass/Vol] 8.5 mg/dL Low 8.6-10.3 [facility] Comment on above: Order Comment: No: D o not add to previous draw Performed By: #### 0 0071, [id number] #### [facility] [address] [place] [address], [facility] Chloride [Moles/Vol] 108 mmol/L High 98-107 [facility] Comment on above: Order Comment: No: D o not add to previous draw Performed By: #### 0 0071, 66319 #### [facility] [address] [place] [address], [place] CO2 [Moles/Vol] 27 mmol/L Normal 21-31 [facility] Comment on above: Order Comment: No: D o not add to previous draw Performed By: #### 0 0071, 05569 #### [facility] [address] [place] [address], [facility] Creatinine [Mass/Vol] 0.89 mg/dL Normal 0.70-1.30 [facility] Comment on above: Order Comment: No: D o not add to previous draw Performed By: #### 0 0071, 05296 #### [facility] [address] [place] [address], [place] GFR/1.73 sq M predicted among blacks MDRD (S/P/Bld) [Vol rate/Area] mL/min/{1.73_m2} Normal >60 [facility] Comment on above: Order Comment: No: D o not add to previous draw Result Comment: Calc ulation may not be valid for patients over 70 years Performed By: #### 0 0071, 50071 #### [facility] [address] [place] [address], [place] GFR/1.73 sq M predicted among non-blacks MDRD (S/P/Bld) [Vol rate/Area] mL/min/{1.73_m2} Normal >60 [facility] Comment on above: Order Comment: No: D o not add to previous draw Result Comment: Calc ulation may not be valid for patients over 70 years Performed By: #### 0 0071, [id number] #### [facility] [address] [place] [address], [place] Glucose [Mass/Vol] 78 mg/dL Normal 70-100 [facility] Comment on above: Order Comment: No: D o not add to previous draw Performed By: #### 0 0071, 70817 #### [facility] [address] [place] [address], [place] Potassium [Moles/Vol] 4.0 mmol/L Normal 3.5-5.1 [facility] Comment on above: Order Comment: No: D o not add to previous draw Performed By: #### 0 0071, 12495 #### [facility] [address] [place] [address], [place] Sodium [Moles/Vol] 144 mmol/L Normal 136-145 [facility] Comment on above: Order Comment: No: D o not add to previous draw Performed By: #### 0 0071, 20121 #### [facility] [address] [place] [address], [place] Urea nitrogen [Mass/Vol] 21 mg/dL Normal 7-25 [facility] Comment on above: Order Comment: No: D o not add to previous draw Performed By: #### 0 0071, 70280 #### [facility] [address] [place] [address], [place] Calcium [Mass/Vol] 8.3 mg/dL Low 8.6-10.3 [facility] Comment on above: Performed By: #### 0 0071, 61085, 95197 #### [facility] [address] [place] [address], [place] Chloride [Moles/Vol] 108 mmol/L High 98-107 [facility] Comment on above: Performed By: #### 0 0071, 17842, 77106 #### [facility] [address] [place] [address], [place] CO2 [Moles/Vol] 24 mmol/L Normal 21-31 [facility] Comment on above: Performed By: #### 0 0071, 80360, 60951 #### [facility] [address] [place] [address], [place] Creatinine [Mass/Vol] 0.90 mg/dL Normal 0.70-1.30 [facility] Comment on above: Performed By: #### 0 0071, 67846, 95704 #### [facility] [address] [place] [address], [place] GFR/1.73 sq M predicted among blacks MDRD (S/P/Bld) [Vol rate/Area] mL/min/{1.73_m2} Normal >60 [facility] Comment on above: Result Comment: Calc ulation may not be valid for patients over 70 years Performed By: #### 0 0071, 40358, 08465 #### [facility] [address] [place] [address], [place] GFR/1.73 sq M predicted among non-blacks MDRD (S/P/Bld) [Vol rate/Area] mL/min/{1.73_m2} Normal >60 [facility] Comment on above: Result Comment: Calc ulation may not be valid for patients over 70 years Performed By: #### 0 0071, 20599, 73010 #### [facility] [address] [place] [address], [place] Glucose [Mass/Vol] 101 mg/dL High 70-100 [facility] Comment on above: Performed By: #### 0 0071, 99478, 69391 #### [facility] [address] [place] [address], [place] Potassium [Moles/Vol] 3.5 mmol/L Normal 3.5-5.1 [facility] Comment on above: Performed By: #### 0 0071, 92058, 37949 #### [facility] [address] [place] [address], [place] Sodium [Moles/Vol] 141 mmol/L Normal 136-145 [facility] Comment on above: Performed By: #### 0 0071, 05292, 21704 #### [facility] [address] [place] [address], [facility] Urea nitrogen [Mass/Vol] 24 mg/dL Normal 7-25 [facility] Comment on above: Performed By: #### 0 0071, 34985, 70687 #### [facility] [address] [place] [address], [facility] CBC COMPLETE BLOOD COUNTon 0 - Erythrocyte distribution width (RBC) [Ratio] 13.8 % Normal 11.5-15.0 [facility] Comment on above: Order Comment: No: D o not add to previous draw Performed By: #### 5 [id number] #### [facility] [address] [place] [address], [facility] Hematocrit (Bld) [Volume fraction] 37.7 % Low 39.0-50.0 [facility] Comment on above: Order Comment: No: D o not add to previous draw Performed By: #### 5 0608 #### [facility] [address] [place] [address], [facility] Hemoglobin (Bld) [Mass/Vol] 12.9 g/dL Low 13.0-17.0 [facility] Comment on above: Order Comment: No: D o not add to previous draw Performed By: #### 5 0608 #### [facility] [address] [place] [address], [facility] MCH (RBC) [Entitic mass] 29.1 pg Normal 27.0-33.0 [facility] Comment on above: Order Comment: No: D o not add to previous draw Performed By: #### 5 [id number] #### [facility] [address] [place] [address], [facility] MCHC (RBC) [Mass/Vol] 34.2 g/dL Normal 32.0-35.0 [facility] Comment on above: Order Comment: No: D o not add to previous draw Performed By: #### 5 0608 #### [facility] [address] [place] [address], [facility] MCV (RBC) [Entitic vol] 85.1 fL Normal 82.0-98.0 [facility] Comment on above: Order Comment: No: D o not add to previous draw Performed By: #### 5 0608 #### [facility] [address] [place] [address], [facility] Nucleated RBC/100 WBC (Bld) [Ratio] 0 % Normal 0-0 [facility] Comment on above: Order Comment: No: D o not add to previous draw Performed By: #### 5 0608 #### [facility] [address] [place] [address], [facility] PLAT CNT 198 10*3/uL Normal 150-[address] [facility] Comment on above: Order Comment: No: D o not add to previous draw Performed By: #### 5 0608 #### [facility] [address] [place] [address], [facility] RBC (Bld) [#/Vol] 4.43 10*6/uL Normal 4.20-5.70 [facility] Comment on above: Order Comment: No: D o not add to previous draw Performed By: #### 5 0608 #### [facility] [address] [place] [address], [facility] WBC (Bld) [#/Vol] 10.40 10*3/uL Normal 4.00-10.60 [facility] Comment on above: Order Comment: No: D o not add to previous draw Performed By: #### 5 0608 #### [facility] [address] [place] [address], [facility] LIPID PROFILEon 07-02-2020 Cholesterol [Mass/Vol] 119 mg/dL Low 120-200 [facility] Comment on above: Result Comment: CHOL ESTEROL REFERENCE RANGE: 20 YEARS AND OLDER CARDIOVASCULAR RISK Less than 200 mg/dl Low Risk 200 to 239 mg/dl Borderline Risk 240 mg/dl and greater High Risk Performed By: #### 0 0071, 46090, 11690 #### [facility] [address] [place] [address], [place] Cholesterol in HDL [Mass/Vol] 37 mg/dL Normal 23-92 [facility] Comment on above: Result Comment: Slig ht variation in normal range could be due to gender and/or age. HDL CHOLESTEROL REFERENCE RANGE: 20 years and older Cardiovascular Risk > or =60 mg/dL Desirable 40 TO 59 mg/dL Low Risk <40 mg/dL High Risk Performed By: #### 0 0071, 22073, 55470 #### [facility] [address] [place] [address], [place] Cholesterol in LDL [Mass/Vol] 68 mg/dL Normal 0-130 [facility] Comment on above: Result Comment: LDL IS A CALCULATION LDL IS ONLY VALID IF THE TRIG IS LESS THAN 400. Performed By: #### 0 0071, 35391, 24023 #### [facility] [address] [place] [address], [place] Cholesterol.total/Ch olesterol in HDL [Mass ratio] 3.2 {ratio} Normal 0.0-4.5 [facility] Comment on above: Performed By: #### 0 0071, 99943, 28549 #### [facility] [address] [place] [address], [place] NON-HDL CHOLESTEROL 82 mg/dL Normal [facility] Comment on above: Performed By: #### 0 0071, 11607, 20287 #### [facility] [address] [place] [address], [place] Triglyceride [Mass/Vol] 71 mg/dL Normal 40-149 [facility] Comment on above: Result Comment: TRIG LYCERIDE REFERENCE RANGE: 20 YEARS AND OLDER CARDIOVASCULAR RISK LESS THAN 150 mg/dl LOW RISK 150 TO 199 mg/dl BORDERLINE RISK 200 mg/dl AND GREATER HIGH RISK Performed By: #### 0 0071, 39012, 34678 #### [facility] [address] [place] [address], [facility] VLDL CHOL 14 mg/dL Normal 0-40 [facility] Comment on above: Performed By: #### 0 0071, 40919, 98757 #### [facility] [address] [place] [address], [facility] MAGNESIUM BLOODon 07-02-2020 Magnesium [Mass/Vol] 1.5 mg/dL Low 1.9-2.7 [facility] Comment on above: Order Comment: No: D o not add to previous draw Performed By: #### 0 0071, 81622 #### [facility] [address] [facility] [address], [facility] Magnesium [Mass/Vol] 1.3 mg/dL Low 1.9-2.7 [facility] Comment on above: Performed By: #### 1 0070, 46179 #### [facility] [address] [place] [address], [facility] TROPONIN-Ion 07-02-2020 Troponin I.cardiac [Mass/Vol] 0.03 ng/mL Normal 0.00-0.04 [facility] Comment on above: Order Comment: No: D o not add to previous draw Result Comment: REFE RENCE RANGES: 0.00 - 0.04 ng/ml NORMAL 0.05 - 0.50 ng/ml INDETERMINATE > 0.50 ng/ml CONSISTENT WITH AN M.I. Performed By: #### 0 0071, 54710, 90113 #### [facility] [address] [place] [address], [facility] Troponin I.cardiac [Mass/Vol] 0.03 ng/mL Normal 0.00-0.04 [facility] Comment on above: Order Comment: No: D o not add to previous draw Result Comment: REFE RENCE RANGES: 0.00 - 0.04 ng/ml NORMAL 0.05 - 0.50 ng/ml INDETERMINATE > 0.50 ng/ml CONSISTENT WITH AN M.I. Performed By: #### 1 0070, 27921 #### [facility] [address] UFH HEPARIN ASSAYon 07-03-19 UNFRACTIONATED HEPARIN 0.63 IU/mL Normal 0.30-0.70 [facility] Comment on above: Result Comment: Danica roxaban and Apixaban will interfere with the anti Xa assay used to monitor UFH and LMWH. Performed By: #### 5 [id number] #### [facility] [address] [facility] UNFRACTIONATED HEPARIN 0.48 IU/mL Normal 0.30-0.70 [facility] Comment on above: Order Comment: No: D o not add to previous draw Result Comment: Lamar roxaban and Apixaban will interfere with the anti Xa assay used to monitor UFH and LMWH. Performed By: #### 5 [id number] #### [facility] [address] [facility] UNFRACTIONATED HEPARIN 0.34 IU/mL Normal 0.30-0.70 [facility] Comment on above: Result Comment: Lamar roxaban and Apixaban will interfere with the anti Xa assay used to monitor UFH and LMWH. Performed By: #### 5 [id number] #### [facility] [address] APTTon 07-01-2020 aPTT Coag (Bld) [Time] 39.8 s High 25.0-35.0 [facility] Comment on above: Order Comment: No: D o not add to previous draw Result Comment: ALL RESULTS MUST BE INTERPRETED WITH RESPECT TO BLOOD DRAWING ARTIFACT OR DILUTION ERROR OF ANTICOAGULANT AT THE TIME OF SAMPLING. THE APTT SHOULD NOT BE USED TO MONITOR UNFRACTIONATED HEPARIN THERAPY, THIS LABORATORY NO LONGER HAS AN ESTABLISHED THERAPEUTIC RANGE BASED ON THE APTT. IT IS RECOMMENDED THAT THE UFH - HEPARIN ASSAY (ANTI-XA ACTIVITY) BE USED FOR THIS PURPOSE. Performed By: #### 5 [id number] #### [facility] [address] [place] [address], [facility] BASIC METABOLIC PANELon - Calcium [Mass/Vol] 8.6 mg/dL Normal 8.6-10.3 [facility] Comment on above: Order Comment: No: D o not add to previous draw Performed By: #### 5 0608 #### [facility] [address] [place] [address], [facility] Chloride [Moles/Vol] 104 mmol/L Normal 98-107 The [facility] Comment on above: Order Comment: No: D o not add to previous draw Performed By: #### [id number] #### [facility] [address] [address], [facility] CO2 [Moles/Vol] 27 mmol/L Normal 21-31 The [facility] Comment on above: Order Comment: No: D o not add to previous draw Performed By: #### [id number] #### [facility] [address] [address], [facility] Creatinine [Mass/Vol] 0.99 mg/dL Normal 0.70-1.30 [facility] Comment on above: Order Comment: No: D o not add to previous draw Performed By: #### [id number] #### [facility] [address] [place] [address], [facility] GFR/1.73 sq M predicted among blacks MDRD (S/P/Bld) [Vol rate/Area] mL/min/{1.73_m2} Normal >60 [facility] Comment on above: Order Comment: No: D o not add to previous draw Result Comment: Calc ulation may not be valid for patients over 70 years Performed By: #### [id number] #### [facility] [address] [place] [address], [facility] GFR/1.73 sq M predicted among non-blacks MDRD (S/P/Bld) [Vol rate/Area] mL/min/{1.73_m2} Normal >60 [facility] Comment on above: Order Comment: No: D o not add to previous draw Result Comment: Calc ulation may not be valid for patients over 70 years Performed By: #### [id number] #### [facility] [address] [place] [address], [facility] Glucose [Mass/Vol] 126 mg/dL High 70-100 The [facility] Comment on above: Order Comment: No: D o not add to previous draw Performed By: #### [id number] #### [facility] [address] [place] [address], [facility] Potassium [Moles/Vol] 2.9 mmol/L Low 3.5-5.1 [facility] Comment on above: Order Comment: No: D o not add to previous draw Performed By: #### [id number] #### [facility] [address] [place] [address], [facility] Sodium [Moles/Vol] 141 mmol/L Normal 136-145 [facility] Comment on above: Order Comment: No: D o not add to previous draw Performed By: #### [id number] #### [facility] [address] [place] [address], [facility] Urea nitrogen [Mass/Vol] 25 mg/dL Normal 7-25 [facility] Comment on above: Order Comment: No: D o not add to previous draw Performed By: #### [id number] #### [facility] [address] [place] [address], [facility] CBC COMPLETE BLOOD COUNTon 0 07-01-2020 Erythrocyte distribution width (RBC) [Ratio] 13.7 % Normal 11.5-15.0 [facility] Comment on above: Order Comment: No: D o not add to previous draw Performed By: #### [id number] #### [facility] [address] [place] [address], [facility] Hematocrit (Bld) [Volume fraction] 39.8 % Normal 39.0-50.0 [facility] Comment on above: Order Comment: No: D o not add to previous draw Performed By: #### [id number] #### [facility] [address] [place] [address], [facility] Hemoglobin (Bld) [Mass/Vol] 13.7 g/dL Normal 13.0-17.0 [facility] Comment on above: Order Comment: No: D o not add to previous draw Performed By: #### [id number] #### [facility] [address] [place] [address], [facility] MCH (RBC) [Entitic mass] 28.7 pg Normal 27.0-33.0 [facility] Comment on above: Order Comment: No: D o not add to previous draw Performed By: #### [id number] #### [facility] [address] [place] [address], [facility] MCHC (RBC) [Mass/Vol] 34.4 g/dL Normal 32.0-35.0 [facility] Comment on above: Order Comment: No: D o not add to previous draw Performed By: #### [id number] #### [facility] [address] [place] [address], [facility] MCV (RBC) [Entitic vol] 83.3 fL Normal 82.0-98.0 [facility] Comment on above: Order Comment: No: D o not add to previous draw Performed By: #### [id number] #### [facility] [address] [place] [address], [facility] Nucleated RBC/100 WBC (Bld) [Ratio] 0 % Normal 0-0 [facility] Comment on above: Order Comment: No: D o not add to previous draw Performed By: #### [id number] #### [facility] [address] [place] [address], [facility] PLAT CNT 184 10*3/uL Normal 150-[address] [facility] Comment on above: Order Comment: No: D o not add to previous draw Performed By: #### [id number] #### [facility] [address] RBC (Bld) [#/Vol] 4.78 10*6/uL Normal 4.20-5.70 [facility] Comment on above: Order Comment: No: D o not add to previous draw Performed By: #### [id number] #### [facility] [address] WBC (Bld) [#/Vol] 9.34 10*3/uL Normal 4.00-10.60 [facility] Comment on above: Order Comment: No: D o not add to previous draw Performed By: #### [id number] #### [facility] [address] PROTHROMBIN TIMEon 1 INR Coag (PPP) [Relative time] 1.12 {INR} Normal 0.91-1.16 [facility] Comment on above: Order Comment: No: D o not add to previous draw Result Comment: ACCC P RECOMMENDED INR FOR WARFARIN THERAPY ------- ------- CONDITION INR PROPHYLAXIS OF VENOUS THROMBOSIS 2-3 (HIGH-RISK SURGERY) TREATMENT OF VENOUS THROMBOSIS 2-3 TREATMENT OF PULMONARY EMBOLISM 2-3 PREVENTION OF SYSTEMIC EMBOLISM: 2-3 ACUTE MYOCARDIAL INFARCTION TISSUE HEART VALVES VALVULAR HEART DISEASE ATRIAL FIBRILLATION RECURRENT SYSTEMIC EMBOLISM MECHANICAL HEART VALVE 2.5-3.5 FROM: ORAL ANTICOAGULANTS. MECHANISM OF ACTION, CLINICAL EFFECTIVENESS, AND OPTIMAL THERAPEUTIC RANGE. CHEST 1995;108:231S-246S. Performed By: #### [id number] #### [facility] [address] PT Coag (PPP) [Time] 14.4 s Normal 12.3-14.8 [facility] Comment on above: Order Comment: No: D o not add to previous draw Result Comment: ALL RESULTS MUST BE INTERPRETED WITH RESPECT TO BLOOD DRAWING ARTIFACT OR DILUTION ERROR OF ANTICOAGULANT AT THE TIME OF SAMPLING. Performed By: #### [id number] #### [facility] [address] TROPONIN-Ion 07-01-2020 Troponin I.cardiac [Mass/Vol] 0.02 ng/mL Normal 0.00-0.04 [facility] Comment on above: Order Comment: No: D o not add to previous draw Result Comment: REFE RENCE RANGES: 0.00 - 0.04 ng/ml NORMAL 0.05 - 0.50 ng/ml INDETERMINATE > 0.50 ng/ml CONSISTENT WITH AN M.I. Performed By: #### [id number] #### [facility] [address] [facility] UFH HEPARIN ASSAYon 07-02-19 21 UNFRACTIONATED HEPARIN <0.10 Critically low 0.30-0.70 [facility] Comment on above: Result Comment: Lamar roxaban and Apixaban will interfere with the anti Xa assay used to monitor UFH and LMWH. RESULTS CHECKED AND CALLED. ACCURATELY READ BACK BY Jesus Manuel Velez RN at 214. Performed By: #### [id number] #### [facility] [address] [address], [facility] Encounters Encounter Date Encounter Type Care Provider Facility Start: 03-16-2023 End: 03-16-2023 ambulatory SCOTT TAI Not Available Start: 02-19-2023 End: 02-19-2023 ambulatory CARLA SESAY [facility] Start: 12-09-2022 End: 12-09-2022 ambulatory CELIA DURHAM [facility] Start: 04-22-2022 End: 04-22-2022 ambulatory Driss Luis Other [facility] Other Start: 04-22-2022 Telephone encounter Driss álvarez [facility] Start: 12-19-2021 End: 12-19-2021 ambulatory Driss Smith Other [facility] Other Start: 12-19-2021 Telephone encounter Driss álvarez [facility] Start: 07-26-2021 End: 07-26-[address] PRAVEEN MEADOWS Facility:[facility] Start: 05-06-2021 End: 05-06-[address] SCOTT TAI Facility:[facility] Start: 01-06-2021 End: 01-06-[address] JASKARAN CARRERA Facility:[facility] Start: 07-01-2020 End: 07-02-2020 Patient encounter procedure VIDAL ODOM Facility:[facility] Start: 06-28-2018 End: 06-29-2018 Patient encounter procedure DEFAULT PHYSICIAN Facility:[facility] Procedures Date Procedure Procedure Detail Performing Clinician Start: 07-02-2020 MEASUREMENT OF CARDI AC TOTAL ACTIVITY, EXTERNAL APPROACH BINDU ZAIDI Start: 07-02-2020 ULTRASONOGRAPHY OF R IGHT AND LEFT HEART, TRANSESOPHAGEAL SAMER Tian ZAIDI Payers Date Payer Category Payer Unknown [id number] 1940 Unknown [id number] [id number] 1940 Unknown [id number] 2.16.8 [id number] 1940 Unknown [id number] 2.16.84 [id number] 1940 Unknown [id number] 2.16.84 [id number] 1940 Unknown [id number] 2.16.84 [id number] 1940 Unknown [id number] Unknown Social History Date Type Detail Facility Sex Assigned At [facility] Other Clinical Notes 04-22-2022 to 02-19-2023 Note Date & Type Note Facility 02-19-2023 Note Patient here for 3 m o follow up chronic systolic heart failure, CAD, and ischemic cardiomyopathy. He had an echo in Dec 2022. Denies chest pain, SOB, and palpitations. States the lightheadedness has resolved and he feels good. He did bring a list of his BP's from home with him today. At last apt in Nov 2022, he reported that PCP had recently cut a few of his meds in half due to dizziness and hypotension. He is back to taking full tablets of all of them. Review of Systems All other systems reviewed and are negative. [facility] 02-19-2023 Note Cardiology Clinic No te Subjective Davina Cabello is a 82 y.o. year old male patient with past medical history of CAD status post CABG, heart failure reduced ejection fraction, hypertension, and hyperlipidemia seen in follow-up. Patient Active Problem List Diagnosis Cardiovascular stress test abnormal Chest pain Coronary arteriosclerosis Dyspnea Fatigue History of hypertension Hyperlipidemia Hypertensive disorder Old myocardial infarction Ischemic cardiomyopathy Atrial enlargement, bilateral Basal cell carcinoma of back Benign essential hypertension Benign prostatic hyperplasia with lower urinary tract symptoms Cardiac arrhythmia Carpal tunnel syndrome of right wrist Chronic recurrent pancreatitis (CMS/HCC) Chronic systolic CHF (congestive heart failure), NYHA class 2 (CMS/HCC) Diverticulosis of colon Dyspepsia Elevated PSA History of coronary artery bypass graft 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 Mitral valve insufficiency Nocturia Nuclear sclerosis of both eyes Overweight (BMI 25.0-29.9) Pancreatic insufficiency Sensorineural hearing loss, bilateral Squamous cell carcinoma of left hand Stage 3a chronic kidney disease (CMS/HCC) Bilateral hearing loss Regular astigmatism, bilateral Family History Problem Relation Name Age of Onset Coronary artery disease Father Hypertension Father Social History Tobacco Use Smoking status: Former Types: Cigarettes Smokeless tobacco: Never Substance Use Topics Alcohol use: Not Currently HPI 82-year-old patient with a past medical history including CAD status post CABG (cath 03-20 RCA and LAD occluded Byrd to LAD and radial to PDA patent DVG to D1 patent circumflex OM 2 70 % small vessel), heart failure with reduced ejection fraction (last known EF 40%), hypertension, hyperlipidemia. Update: 02/19/2023 Seen in follow-up for hypertension and echocardiogram Reports he is doing well with resolution of his hypotension symptoms Denies chest pain, dyspnea, lower extremity edema or palpitations Review of Systems Cardiovascular: Negative for chest pain, claudication, dyspnea on exertion, irregular heartbeat, leg swelling, near-syncope, orthopnea, palpitations, paroxysmal nocturnal dyspnea and syncope. Objective Visit Vitals BP 149/77 (BP Location: Left arm, Patient Position: Sitting) Pulse 63 Ht 1.626 m (5' 4 ) Wt 68 kg (150 lb) SpO2 98% BMI 25.75 kg/m??? Smoking Status Former BSA 1.75 m??? Physical Exam General: Awake, alert, NAD Neck: No elevated JVP. No carotid bruit Pulm: Breath sounds clear to ascultation bilaterally with no wheeze, crackles or rhonchi Cards: Regular rate and rhythm, S1, S2. No S3 or S4 gallop. Murmur: none Extr: Lower extremity edema: None. Skin: warm, dry, well perfused Neuro: A&Ox3, No gross deficits Allergies No Known Allergies Medications Current Outpatient Medications: aspirin 81 mg EC tablet, Take 1 tablet by mouth in the morning., Disp: , Rfl: atorvastatin (Lipitor) 40 mg tablet, Take 40 mg by mouth in the morning., Disp: , Rfl: carvedilol (Coreg) 25 mg tablet, Take 25 mg by mouth in the morning and at bedtime., Disp: , Rfl: clopidogrel (Plavix) 75 mg tablet, Take 75 mg by mouth in the morning., Disp: , Rfl: isosorbide mononitrate ER (Imdur) 30 mg 24 hr tablet, Use 1 tablet in the mouth or throat 1 (one) time each day., Disp: , Rfl: lisinopril 40 mg tablet, Take 40 mg by mouth in the morning., Disp: , Rfl: nitroglycerin (Nitrostat) 0.4 mg SL tablet, Place 1 tablet by sublingual route as needed., Disp: , Rfl: pantoprazole (ProtoNix) 40 mg EC tablet, Use 1 tablet in the mouth or throat 1 (one) time each day., Disp: , Rfl: spironolactone (Aldactone) 25 mg tablet, Take 0.5 tablets (12.5 mg) by mouth in the morning. (Patient taking differently: Take 25 mg by mouth in the morning.), Disp: 90 tablet, Rfl: 0 Recent Labs 10/20/2022 WBC 13.1, hemoglobin 14.3, hematocrit 42.3, platelets 176 Sodium 135, potassium 4.4, chloride 101, CO2 25.5, BUN 29, serum creatinine 1.46, estimated GFR 46% Imaging and other tests Echocardiogram: 01/01/2023 Global left ventricular systolic function is moderately reduced; visually estimated ejection fraction is 30 to 35%. Segmental wall motion abnormalities are seen. Grade 2 diastolic dysfunction The left atrium is mildly dilated The right ventricle is normal in size and decreased systolic function No significant valvular abnormalities Trivial pericardial effusion 05/10/20 reduced LVSF EF 40% Mild DD RV normal size and systolic fx Biatrial enlargement Mild TV and MV regurg Coronary angiogram: 03/20/2017 Patent 3 out of 3 bypass grafts Severe [place] coronary artery disease 70% stenosis in small obtuse marginal Coronary artery bypass graftin02/21/2010 Coronary artery (more content not included)... [facility] 12-09-2022 Note Currently stable without symptom s [facility] 12-09-2022 Note As above [facility] 12-09-2022 Note [facility]- II- remains eu volemic without exacerbation Continue GDMT- Asa, lipitor, coreg, lisinopril, aldactone Diuretic therapy- none at this time Monitor daily weights, I&O, fluid restriction 1.5-2L/day, renal function and electrolytes- Echocardiogram ordered for known reduced EF, recent chest pain and hypotension [facility] 12-09-2022 Note [facility] CARDIOLOGY PROGR ESS NOTE HPI: Davina Cabello is a 82 y.o. male here for routine f/U for CAD, HTN, HPL, ischemic Cardiomyopathy/ HFrEf= 40% HPI Presents for routine f/U. States that he was having low b/p 80's/50s with lightheadedness/dizziness- no syncope, and was evaluated by PCP and medications were adjusted and states he feels much better. Denied chest pain, shortness of breath, orthopnea, weight gain. Admits typical ankle swelling with standing during the day and goes down every night. Admits was in ED in October for Chest pain- but states it was not my heart. States that chest pain has not reoccurred. ED visit 10/20/22 Review of Systems Constitutional: Negative. Respiratory: Negative. Cardiovascular: Positive for leg swelling. Neurological: Negative. All other systems reviewed and are negative. Visit Vitals BP 146/75 (BP Location: Left arm, Patient Position: Sitting, BP Cuff Size: Adult) Pulse 66 Ht 1.626 m (5' 4 ) Wt 66.7 kg (147 lb) SpO2 98% BMI 25.23 kg/m??? Smoking Status Never BSA 1.74 m??? No Known Allergies Medications: Current Outpatient Medications on File Prior to Visit Medication Sig Dispense Refill aspirin 81 mg EC tablet Take 1 tablet by mouth in the morning. atorvastatin (Lipitor) 40 mg tablet Take 40 mg by mouth in the morning. carvedilol (Coreg) 25 mg tablet Take 12.5 mg by mouth in the morning and at bedtime. clopidogrel (Plavix) 75 mg tablet Take 75 mg by mouth in the morning. isosorbide mononitrate ER (Imdur) 30 mg 24 hr tablet Use 1 tablet in the mouth or throat 1 (one) time each day. lipase/protease/amylase (PANCRELIPASE EC ORAL) Take by mouth. lisinopril 40 mg tablet Take 0.5 tablets by mouth in the morning. nitroglycerin (Nitrostat) 0.[address] 1 tablet by sublingual route as needed. pantoprazole (ProtoNix) 40 mg EC tablet Use 1 tablet in the mouth or throat 1 (one) time each day. [DISCONTINUED] spironolactone (Aldactone) 25 mg tablet TAKE 1 TABLET BY MOUTH EVERY DAY DIRECTED 90 tablet 0 No current facility-administered medications on file prior to visit. Physical Exam: Constitutional: Appearance: Normal appearance. Without apparent distress HENT: Head: Normocephalic and atraumatic. Nose: Nose normal. Mouth/Throat: Mouth: Mucous membranes are moist. Eyes: Extraocular Movements: Extraocular movements intact. Conjunctiva/sclera: Conjunctivae normal. Neck: Vascular: No JVD. Cardiovascular: Rate and Rhythm: Normal rate and regular rhythm. Pulses: Dorsalis pedis pulses are 3 on the right side and 3on the left side. Posterior tibial pulses are 3 on the right side and 3 on the left side. Heart sounds: Normal heart sounds, S1 normal and S2 normal. Pulmonary: Effort: Pulmonary effort is normal. Breath sounds: Normal breath sounds. Abdominal: General: Bowel sounds are normal. Palpations: Abdomen is soft. Musculoskeletal: General: Normal range of motion. Cervical back: Normal range of motion. Right lower le+ ankle edema. Left lower le+ ankle edema. Skin: General: Skin is warm and dry. Capillary Refill: Capillary refill takes less than 2 seconds. Neurological: General: No focal deficit present. Mental Status: he is alert and oriented to person, place, and time. Psychiatric: Mood and Affect: Mood normal. Behavior: Behavior normal. Thought Content: Thought content normal. Judgment: Judgment normal. Labs: 10/20/22 CBC stable BUN 29, CR 1.46 elevated K+ 4.4 normal LFT normal Troponin- 13.5- 15.1 07/26/21 CbC normal BUN 25, CR 1.06- normal K+ 3.8 normal LFT stable Last lab values have been reviewed CV Testin07/26/2021 EKG 05/10/20 reduced LVSF EF 40% Mild DD RV normal size and systolic fx Biatrial enlargement Mild TV and MV regurg 03/20/2017 Heart cath 02/21/2010 CABG No echocardiogram results found for the past 12 months Assessment/Plan: Coronary arteriosclerosis Coronary artery disease is stable Continue GDMT- ASA, coreg, lipitor, plavix, imdur, and lisinopril continue risk factor modifications- heart healthy diet, regular exercise as tolerated and continue all medications. Hyperlipidemia Continue statin Hypertensive disorder Hypertension is currently well controlled, PCP had reduced multiple HTN meds r/t noted symptomatic hypotension Coreg, lisinopril and aldactone were all reduced by half Chronic systolic CHF (congestive heart failure), NYHA class 2 (CMS/HCC) [facility]- II- remains euvolemic without exacerbation Continue GDMT- Asa, lipitor, coreg, lisinopril, aldactone Diuretic therapy- none at this time Monitor daily weights, I&O, fluid restriction 1.5-2L/day, renal function and electrolytes- Echocardiogram ordered for known reduced EF, recent chest pain and hypotension Ischemic cardiomyopathy As above Dyspnea Currently stable without symptoms RTC 3 months [facility] 12-09-2022 Note Hypertension is curr ently well controlled, PCP had reduced multiple HTN meds r/t noted symptomatic hypotension Coreg, lisinopril and aldactone were all reduced by half [facility] 12-09-2022 Note Continue statin [facility] 12-09-2022 Note Coronary artery dise ase is stable Continue GDMT- ASA, coreg, lipitor, plavix, imdur, and lisinopril continue risk factor modifications- heart healthy diet, regular exercise as tolerated and continue all medications. [facility] 04-22-2022 Evaluation note Encounter Date Diagnosis Assessment Notes Apr, Liver lesion, right lobe (ICD-10 - K76.9) [facility] Other Evaluation noteNo [facility] Other History general Narrative - Reported* Type Description Date Medical History GERD Medical History HTN Medical History hyperlipidemia Medical History CHF Surgical History tonsillectomy Surgical History cholecystectomy Surgical History triple bypass Surgical History appendectomy Hospitalization History see surgical history [facility] Other Summary Purpose Family History No Family History Records FoundNo Family History Records FoundNo Family History Records FoundNo Family History Records FoundNo Family History Records FoundNo Family History Records FoundNo Family History Records Found Advance Directives No Advanced Directives Records FoundNo Advanced Directives Records FoundNo Advanced Directives Records FoundNo Advanced Directives Records FoundNo Advanced Directives Records FoundNo Advanced Directives Records FoundNo Advanced Directives Records Found Hospital Course Note MR#: [id number] [facility] Pt. Name: Davina Cabello Admitted: 07/01/2020 Discharged: 07/02/2020 Date of : 1940 Physician: Rashad Martinez MD DISCHARGE SUMMARY PRIMARY CARE PHYSICIAN: Scott Tai M.D. FINAL DIAGNOSES: 1. Chest pain, acute. 2. Myocardial ischemia ruled out. 3. Obstructive coronary artery disease. 4. History of bypass graft x3. 6. Gastroesophageal reflux disease, asymptomatic. HOSPITAL COURSE: The patient is a 79-year-old male transferred from outside hospital on account of ongoing right-sided chest pain with some worsening shortness of breath, ruled out myocardial ischemia with serial cardiac enzymes and had a stress test done and it is negative for any stress-induced anemia. The patient was discharged home. When examined today, hemodynamically stable. OBJECTIVE: NECK: Supple. CARDIOVASCULAR: Regular. LABORATORY DATA: Reviewed. MEDICATIONS: Per the computer reconciliation list. Follow with the PCP next 1 week post discharge, Electron (more content not included)... Additional Source Comments (unrecognized sect ion and content) No Status Records FoundNo Status Records FoundNo Status Records FoundNo Status Records FoundNo Status Records FoundNo Status Records FoundNo Status Records Found INFORMATION SOURCE (unrecogn ized section and content) DATE CREATED AUTHOR 06/29/2018 [facility] DATE CREATED AUTHOR AUTHOR'S ORGANIZ ATION 07/13/2020 [facility] DATE CREATED AUTHOR AUTHOR'S ORGANIZ ATION 06/17/2021 [facility] dical Specialist DATE CREATED AUTHOR AUTHOR'S ORGANIZ ATION 07/31/2021 [facility] DATE CREATED AUTHOR AUTHOR'S ORGANIZ ATION 09/23/2021 [facility] DATE CREATED AUTHOR AUTHOR'S ORGANIZ ATION 02/20/2023 [facility] DATE CREATED AUTHOR AUTHOR'S ORGANIZ ATION 03/16/2023 [facility] dical Specialists EPIC REASON FOR VISIT (unrecogniz ed section and content) RECALL RUQ U/SRECALL FOR RECORDS PERTAINING TO PATIENTS WHO ARE OR HAVE BEEN ENROLLED IN A CHEMICAL DEPENDENCY/SUBSTANCEABUSE PROGRAM, SOME INFORMATION MAY BE OMITTED. This clinical summary was aggregated from multiple sources. Caution should be exercised in using it in the provision of clinical care. This summary normalizes information from multiple sources, and as a consequence, information in this document may materially change the coding, format and clinical context of patient data. In addition, data may be omitted in some cases. CLINICAL DECISIONS SHOULD BE BASED ON THE PRIMARY CLINICAL RECORDS. [email or web address] provides no warranty or guarantee of the accuracy or completeness of information in this document.
[2023-04-16 07:46] LABS: Chol HDL Ratio 2.6; Cholesterol 129 mg/dL (<=200); HDL Cholesterol 50 mg/dL (40-60); Triglycerides 115 mg/dL (<=150)
== END 2023-04-16 07:04 | disposition home or self-care (01) ==
LOC: LAB 07:08
PROVIDERS: PCP Internal Medicine; Visit Provider Nurse Practitioner Acute Care
DX: I25.10 Atherosclerotic heart disease of native coronary artery without angina pectoris (principal)
CPT/HCPCS: 36415; 80061

== ENCOUNTER 2023-05-22 18:52 | Observation (INO) | payer MEDICARE, SELFPAY ==
[2023-05-22] VITALS (10 sets, daily range): BP systolic 89–146; BP diastolic 57–69; PULSE 55–68; RESP 16–20; TEMP 36.4–36.6; O2SAT 95–97; BMI 25.7; BMI 26.0
--- OUTSIDE RECORDS SUMMARY | 2023-05-22 19:01 | XMS_ITS | CCD ---
Author Name Unknown Address [facility] [address] [place] [id number] Organization [facility] Care Team Providers Care Court Worker Name Role Phone PHYSICIAN, DEFAULT Admitting Unavailable PHYSICIAN, DEFAULT Attending Unavailable SCOTT TAI Primary Care Unavailable IVDAL ODOM Attending Unavailable VIDAL ODOM Admitting Unavailable SCOTT TAI Primary Care Unavailable PADMA PRADO Referring Unavailable [place] Procedure Practitioner UnavailBINDU Greenwood Surgeon Unavailable PAY, DR MORTON Admitting Unavailable CARLOS, DR GARIBAY Primary Care Unavailable PAY, DR MORTON Attending Unavailable PAY, DR MORTON Consulting Unavailable STACY RALPH Consulting Unavailable AHMEDANDRES Consulting Unavailable SarmientoPernell lujan Consulting Unavailable ZIEBER, DR JASKARAN Watters Consulting Unavailable CECI CADENA Attending Unavailable CECI CADENA Admitting Unavailable CARLOS, DR GARIBAY Primary Care Unavailable CECI CADENA Consulting Unavailable CARLOS, DR GARIBAY Primary Care Unavailable CECI CADENA Admitting Unavailable CECI CADENA Attending Unavailable STACY RALPH Consulting Unavailable JOHAN, DR ROUSE Consulting Unavailable Carlton Bravo Consulting Unavailable Driss Smith Unavailable SCOTT TAI Attending Unavailable CANDI QUIROS Attending Unavailable CARLA SESAY Attending Unavailable CELIA DURHAM Attending Unavailable Allergies Allergy Classification Reported Allergen(s) Allergy Type Date of Onset Reaction(s) Facility (1 source) 94359,00 Drug allergy (disorder) 02-21-2010 [facility] Repository Medications Current Medications Medication Drug Class(es) Dates Sig (Normalized) Sig (Original) amylase 216874 unt / lipase 97133 unt / protease [id number] unt delayed release oral capsule (2 sources) Start: 10-02-2021 take 1 capsule by mouth every eight hours Creon [id number] UNIT 1 CAPSULE Orally THREE TIMES A [...] myocardial infarction; Translations: [Atherosclerotic heart disease of [place] coronary artery without angina pectoris] Onset: 07-30-2021 [...] Onset: 12-09-2022 Chronic Other aftercare (1 source) bi tester (current) use of aspirin; Translations: [MANAGER AMBULATORY CURRENT USE OF ASPIRIN] Onset: 07-30-2021 Episodic Other aftercare (1 source) Other care home (current) drug therapy; Translations: [OTH NURSING HOME CURRENT DRUG THERAPY] Onset: 07-30-2021 Episodic Other aftercare (1 source) bi tester (current) use of antithrombotics/anti platelets; Translations: [MANAGER AMBULATORY ANTITHROMBOT/ANTIPLA TLETS] Onset: 05-08-2021 Episodic Other liver diseases (2 sources) Liver disease, unspecified; Translations: [LIVER DISEASE UNSPECIFIED] Onset: 07-30-2021 Chronic Other liver diseases (2 sources) Lesion of liver; Translations: [Liver disease, unspecified] Chronic Other screening for suspected conditions (not mental [...] Translations: [SHORTNESS OF BREATH] Onset: 01-21-2021 Episodic Other lower respiratory disease (2 sources) Other forms of dyspnea; Translations: [Other forms of dyspnea] Onset: 08-21-2022 Episodic Results Test Name Value Interpretation Reference Range Facility Office Visiton 02-19-2023 Follow-up visit [id number] Thomas Cabellomarcos Mccormick 1940 M Date Provider Department Center 02/19/2023 CARLA LEE [facility] Family History Problem Relation Age of Onset Coronary artery disease Father Hypertension Father Family Status - Relation Status Age at Father Level of Service:76780 [place] OFFICE/OUTPATIENT ESTABLISHED MOD MDM 30-39 MIN Normal [facility] Office Visiton 12-09-2022 Follow-up visit [id number] DestineyRadha Mccormick 1940 M Date Provider Department Center 12/09/2022 CELIA BISHOP [facility] No family history on file Level of Service:27708 [place] OFFICE/OUTPATIENT ESTABLISHED MOD MDM 30-39 MIN Reason for Visit and Comments: Med Refill [[id number]] Normal [facility] ISTAT XRay CREon 09-20-2021 Creatinine [Mass/Vol] 0.9 mg/dL Normal 0.6-1.3 [facility] Comment on above: Result Comment: ER/E SD physician is notified/shown all ISTAT results. Critical values may be confirmed by laboratory testing if deemed necessary by ER attending doctor. Performed By: #### I SCRE #### [address] Point of Care testing , ISTAT GFR ( > 60 Normal [facility] Comment on above: Result Comment: GFR estimated reference range: According to KDOQI guidelines, <60 ml/min/1.73m2 is sufficient to diagnose a patient with chronic kidney disease. PERFORMED BY: [place] [address] PATHOLOGIST WELDER [employer] FAB JIANLAN SUN M.D. Performed By: #### I SCRE #### [facility] [address] [place] [address] Point of Care testing , ISTAT GFR (Non- Am > 60 Normal [facility] Comment on above: Performed By: #### I SCRE #### [facility] [address] [place] [address] Point of Care testing , MR abdomen wo/w conon 2021 MR abdomen wo/w con [facility] [employer] [address] [place] [address] MRI Report Signed Patient: Radha Cabello MR#: [id number] : 1940 Acct:[id number] Age/Sex: 81 / M ADM Date: 09/20/21 Loc: [facility] Room: Type: [facility] Attending Dr: Hasmukh Morelos DO Ordering Provider: [...] STABILITY. Impression dictated by: Layton Ayala Jr., D.O.09/20/2021 11:13 AM Dictation Location: [place] [address] Transcribed By: [facility] 09/20/21 1113 Dictated By: Layton Ayala Jr, DO 09/20/21 1057 Signed By: 09/20/21 1113 [facility] CULTURE URINEon 07-28-2021 CULTURE URINE Isolate [...] Trimethoprim/Sulfame thoxazole <=20 S F Normal [facility] Comment on above: Performed By: #### U RCX ####[facility] [address] [place], [place] [address] ABD/PELV W CONon 07-28-19 [...] ANDRES GOINS Date: 2021-07-27 12:43 Normal [facility] CBC AUTO DIFFon 07-26-2021 BASO # 0.1 103/ul Normal 0.0-0.1 [facility] Comment on above: Performed By: #### C BC ####[facility] [address] [place] [id number]. Nelson Pollock Basophils/100 WBC (Bld) 0.5 % Normal 0.2-2.0 [facility] Comment on above: Performed By: #### C BC ####[facility] [address] [place] [id number] Pollock EO # 0.2 103/ul Normal 0.0-0.7 [facility] Comment on above: Performed By: #### C BC ####[facility] [address] [place], [place] [address]Dr. Nelson Pollock Eosinophils/100 WBC (Bld) 2.1 % Normal 0.9-7.0 [facility] Comment on above: Performed By: #### C BC ####[facility] [address] [place], [place] [address]Dr. Nelson oPllock Erythrocyte distribution width (RBC) [Ratio] 13.7 % Normal 11.0-15.0 [facility] Comment on above: Performed By: #### C BC ####[facility] [address] [place], [place] [address]Dr. Nelson Pollock Hematocrit (Bld) [Volume fraction] 42.8 % Normal 42.0-54.0 [facility] Comment on above: Performed By: #### C BC ####[facility] [address] [place], [place] [address]Dr. Nelson Pollock Hemoglobin (Bld) [Mass/Vol] 14.5 g/dL Normal 14.0-18.0 [facility] Comment on above: Performed By: #### C BC ####[facility] [address] [place], [place] [address]Dr. Nelson Pollock IG # 0.04 10e3/ul Critically high 0.00-0.03 [facility] Comment on above: Performed By: #### C BC ####[facility] [address] [place], [place] [address]Dr. Nelson Pollock IG % 0.4 % Normal 0.0-0.5 [facility] Comment on above: Performed By: #### C BC ####[facility] [address] [place], [place] [address]Dr. Nelson Pollock LYMPH # 1.7 103/ul Normal 1.2-3.8 [facility] Comment on above: Performed By: #### C BC ####[facility] [address] [place], [place] [address]Dr. Nelson Pollock Lymphocytes/100 WBC (Bld) 15.6 % Critically low 20.5-60.0 [facility] Comment on above: Performed By: #### C BC ####[facility] [address] [place] [phone]. Nelson Pollock MANUAL DIFF REQ NO Normal [facility] Comment on above: Performed By: #### C BC ####[facility] [address] [place] [id number]. Nelson Pollock MCH (RBC) [Entitic mass] 29.2 pg Normal 25.9-34.0 [facility] Comment on above: Performed By: #### C BC ####[facility] [address] [place] [address]Dr. Nelson Pollock MCHC (RBC) [Mass/Vol] 33.9 g/dL Normal 29.9-35.2 [facility] Comment on above: Performed By: #### C BC ####[facility] [address] [place] [address]Dr. Nelson Phill MCV (RBC) [Entitic vol] 86.1 fL Normal 80.0-94.0 [facility] Comment on above: Performed By: #### C BC ####[facility] [address] [place] [phone]. Nelson Phill MONO # 0.8 103/ul Normal 0.3-0.8 [facility] Comment on above: Performed By: #### C BC ####[facility] [address] [place] [address]Dr. Cloverkusum Pollock Monocytes/100 WBC (Bld) 7.3 % Normal 1.7-12.0 [facility] Comment on above: Performed By: #### C BC ####[facility] [address] [place] [phone]. Nelson Pollock NEUT # 8.1 103/ul Critically high 1.4-6.[address] [facility] Comment on above: Performed By: #### C BC ####[facility] [address] [place] [phone]. Nelson Pollock Neutrophils/100 WBC (Bld) 74.1 % Normal 43.0-75.0 [facility] Comment on above: Performed By: #### C BC ####[facility] [address] [place] [address]Dr. Nelson Pollock Platelet mean volume (Bld) [Entitic vol] 10.2 fL Normal 9.5-13.5 [facility] Comment on above: Performed By: #### C BC ####[facility] [address] [place] [address]Dr. Nelson Pollock PLT 191 103/ul Normal 150-450 [facility] Comment on above: Performed By: #### C BC ####[facility] [address] [place] [address]Dr. Nelson Pollock RBC 4.97 106/ul Normal 4.70-6.10 [facility] Comment on above: Performed By: #### C BC ####[facility] [address] [place] [address]Dr. Nelson Pollock WBC 11.0 103/ul Normal 4.0-11.0 [facility] Comment on above: Performed By: #### C BC ####[facility] [address] [place] [address]Dr. Nelson Pollock ER URINE PROFILEon 2 Bilirubin Ql (U) Negative Normal NEGATIVE [facility] Comment on above: Performed By: #### DAT DIALLORO #### [facility] [address] [place] [address] Dr. Nelson Pollock Clarity (U) SL CLOUDY Abnormal CLEAR [facility] Comment on above: Performed By: #### DAT DIALLORO #### [facility] [address] [place] [address] Dr. Nelson Pollock Color (U) LT. YELLOW Normal YELLOW [facility] Comment on above: Performed By: #### DAT DIALLORO #### [facility] [address] [place] [address] Dr. Nelson FELTON A micrscopic examination will be performed if indicated. Normal [facility] Comment on above: Performed By: #### DAT DIALLORO #### [facility] [address] [place] [address] Dr. Nelson Pollock Glucose Ql (U) Negative Normal NEGATIVE [facility] Comment on above: Performed By: #### Anny THOMPSONR, UMICRO #### [facility] [address] [place] [address] Dr. Nelson Pollock Hemoglobin Ql (U) Negative Normal NEGATIVE [facility] Comment on above: Performed By: #### E RUR, UMICRO #### [facility] [address] [place] [address] [address] Nelson Pollock Ketones Ql (U) Negative Normal NEGATIVE [facility] Comment on above: Performed By: #### E RUDuong UMICRO #### [facility] [address] [place] [address] Dr. Nelson Pollock LEUKOCYTES SMALL Abnormal NEGATIVE [facility] Comment on above: Performed By: #### Anny ZAMORA UMICRO #### [facility] [address] [place] [address] Dr. Nelson Pollock Nitrite Ql (U) Negative Normal NEGATIVE [facility] Comment on above: Performed By: #### Anny ZAMORA UMICRO #### [facility] [address] [place] [address] Dr. Nelson Pollock pH (U) 5.0 [pH] Normal 5-9 [facility] Comment on above: Performed By: #### Anny ZAMORA UMICRO #### [facility] [address] [place] [address] Dr. Nelson Pollock SPEC GRAVITY <=1.005 Abnormal 1.005-<=1.[address] [facility] Comment on above: Performed By: #### Anny ZAMORA UMICRO #### [facility] [address] [place] [address] Dr. Nelson Pollock UA PROTEIN Negative Normal NEGATIVE/ TRACE [facility] Comment on above: Performed By: #### E SERA, UMICRO #### [facility] [address] [place] [address] Dr. Nelson Pollock UR MICRO IND INDICATED Normal [facility] Comment on above: Performed By: #### Anny ZAMORA UMICRO #### [facility] [address] [place] [address] [address] Nelson Pollock Urobilinogen Qn (U) 0.2 {Christopher'U}/dL Normal 0.2 - 1. 0 [facility] Comment on above: Performed By: #### E LEISA ZAMORA #### [facility] [address] [place] [address] [address] Nelson Pollock LACTATE/LACTIC ACIDon 2021 Lactate [Moles/Vol] 1.2 mmol/L Normal 0.7-2.0 [facility] Comment on above: Performed By: #### L ACT #### [facility] [address] [place] [address] [address] Nelson Pollock LIPASEon 07-26-2021 Lipase [Catalytic activity/Vol] 865.0 U/L Critically high 23.0-300.0 [facility] Comment on above: Performed By: #### L IPA, HSTROPN, CMP ####[facility] [address] [place] [address]Dr. Nelson Pollock PROF 14(COMP METB)on 022 Albumin [Mass/Vol] 4.1 g/dL Normal 3.4-5.0 [facility] Comment on above: Performed By: #### L IPA, HSTROPN, CMP ####[facility] [address] [place] [address]Dr. Nelson Pollock Albumin/Globulin [Mass ratio] 1.2 {ratio} Normal [facility] Comment on above: Performed By: #### L IPA, HSTROPN, CMP ####[facility] [address] [place] [address]Dr. Nelson Pollock ALP [Catalytic activity/Vol] 89 U/L Normal 46-116 [facility] Comment on above: Performed By: #### L IPA, HSTROPN, CMP ####[facility] [address] [place] [address]Dr. Nelson Pollock ALT [Catalytic activity/Vol] 43 U/L Normal 16-63 [facility] Comment on above: Performed By: #### L IPA, HSTROPN, CMP ####[facility] [address] [place] [address]Dr. Nelson Pollock Anion gap [Moles/Vol] 15.5 mmol/L Normal [facility] Comment on above: Performed By: #### L IPA, HSTROPN, CMP ####[facility] [address] [place] [address]Dr. Nelson Pollock AST [Catalytic activity/Vol] 53 U/L Critically high 15-37 [facility] Comment on above: Performed By: #### L IPA, HSTROPN, CMP ####[facility] [address] [place], [place] [address]Dr. Nelson Plolock Bilirubin [Mass/Vol] 2.4 mg/dL Critically high 0.2-1.3 [facility] Comment on above: Performed By: #### L IPA, HSTROPN, CMP ####[facility] [address] [place], [place] [address]Dr. Nelson Pollock Calcium [Mass/Vol] 8.5 mg/dL Normal 8.5-10.1 [facility] Comment on above: Performed By: #### L IPA, HSTROPN, CMP ####[facility] [address] [place], [place] [address]Dr. Nelson Pollock Chloride [Moles/Vol] 105 mmol/L Normal 98-107 [facility] Comment on above: Performed By: #### L IPA, HSTROPN, CMP ####[facility] [address] [place], [place] [address]Dr. Nelson Pollock CO2 [Moles/Vol] 22.3 mmol/L Normal 22.0-30.0 [facility] Comment on above: Performed By: #### L IPA, HSTROPN, CMP ####[facility] [address] [place], [place] [address]Dr. Nelson Pollock Creatinine [Mass/Vol] 1.06 mg/dL Normal 0.66-1.25 [facility] Comment on above: Performed By: #### L IPA, HSTROPN, CMP ####[facility] [address] [place] [id number]. Nelson Pollock EGFR-AF [place] >60 Normal >=60 [facility] Comment on above: Performed By: #### L IPA, HSTROPN, CMP ####[facility] [address] [place] [address]Dr. Nelson Pollock EGFR-NON AF [place] >60 Normal >=60 [facility] Comment on above: Performed By: #### L IPA, HSTROPN, CMP ####[facility] [address] [place] [address]Dr. Nelson Pollock Globulin (S) [Mass/Vol] 3.4 g/dL Normal [facility] Comment on above: Performed By: #### L IPA, HSTROPN, CMP ####[facility] [address] [place] [address]Dr. Nelson Pollock Glucose [Mass/Vol] 154 mg/dL Critically high 74-106 [facility] Comment on above: Performed By: #### L IPA, HSTROPN, CMP ####[facility] [address] [place] [address]Dr. Nelson Pollock Potassium [Moles/Vol] 3.8 mmol/L Normal 3.4-5.0 [facility] Comment on above: Performed By: #### L IPA, HSTROPN, CMP ####[facility] [address] [place] [address]Dr. Nelson Pollock Protein [Mass/Vol] 7.5 g/dL Normal 6.1-8.2 [facility] Comment on above: Performed By: #### L IPA, HSTROPN, CMP ####[facility] [address] [place] [address]Dr. Nelson Pollock Sodium [Moles/Vol] 139 mmol/L Normal 137-145 [facility] Comment on above: Performed By: #### L IPA, HSTROPN, CMP ####[facility] [address] [place] [address]Dr. Nelson Pollock Urea nitrogen [Mass/Vol] 25.0 mg/dL Critically high 7.0-18.0 [facility] Comment on above: Performed By: #### L IPA, HSTROPN, CMP ####[facility] [address] [place] [address]Dr. Nelson Pollock Urea nitrogen/Creatinine [Mass ratio] 23.6 mg/mg Normal [facility] Comment on above: Performed By: #### L IPA, HSTROPN, CMP ####[facility] [address] [place] [address]Dr. Nelson Pollock PROTIMEon 07-26-2021 INR Coag (PPP) [Relative time] 1.07 {INR} Normal [facility] Comment on above: Performed By: #### P TT, PT ####[facility] [address] [place], [place] [address]Dr. Nelson Pollock INR GUIDELINES SEE BELOW Normal [facility] Comment on above: Result Comment: ARTEM RED INR: 2.0 - 3.0 CONDITIONS NOT LISTED BELOW 2.5 - 3.5 FOR PROSTHETIC HEART VALVE REPLACEMENT 2.5 - 3.5 RECURRENT THROMBOSIS Performed By: #### P TT, PT ####[facility] [address] [place], [place] [address]Dr. Nelson Pollock PT Coag (PPP) [Time] 11.5 s Normal 9.0-11.6 [facility] Comment on above: Performed By: #### P TT, PT ####[facility] [address] [place], [place] [address]Dr. Nelson Pollock PTTon 07-26-2021 aPTT Coag (Bld) [Time] 24.9 s Normal 22.3-36.2 [facility] Comment on above: Performed By: #### P TT, PT ####[facility] [address] [place], [place] [address]Dr. Nelson Pollock TROPONIN, HIGH SENSITIVITYon 07-26-2021 HSTROP 38.6 pg/mL Normal 4.0-42.2 [facility] Comment on above: Result Comment: CUT- OFF POINTS HAVE BEEN ESTABLISHED BASED ON THE FOURTH UNIVERSAL DEFINITIONS OF MYOCARDIAL INFARCTION. THE UPPER REFERENCE LIMIT (URL) OF TROPONIN, DEFINED THE 99TH PERCENTILE OF cTnI DISTRIBUTION IN A REFERENCE POPULATION, HAS BEEN CONFIRMED THE DECISION THRESHOLD FOR VA DIAGNOSIS. Performed By: #### L IPA, HSTROPN, CMP ####[facility] [address] [place] [address]Dr. Nelson Pollock URINE MICROSCOPIC ONLYon BACTERIA MODERATE Abnormal NONE SEEN [facility] Comment on above: Performed By: #### E RUR, UMICRO #### [facility] [address] [place] [address] Dr. Nelson Pollock Bacteria identified Cx Nom (U) INDICATED Normal [facility] Comment on above: Performed By: #### E RUR, UMICRO #### [facility] [address] [place] [address] Dr. Nelson Pollock CAST NONE SEEN Normal NONE SEEN [facility] Comment on above: Performed By: #### E DONNAR, UMICRO #### [facility] [address] [place] [address] Dr. Nelson Pollock Crystals LM Nom (Urine sed) NONE SEEN Normal NONE SEEN [facility] Comment on above: Performed By: #### Anny THOMPSONR, UMICRO #### [facility] [address] [place] [address] Dr. Nelson Pollock Epithelial cells LM Ql (Urine sed) RARE Normal NONE SEEN /RARE [facility] Comment on above: Performed By: #### E DONNAR, UMICRO #### [facility] [address] [place] [address] Dr. Nelson Pollock MUCOUS NONE SEEN Normal NONE SEEN [facility] Comment on above: Performed By: #### E RUR, UMICRO #### [facility] [address] [place] [address] Dr. Nelson Plolock RBC 2-5 Abnormal 0-2 [facility] Comment on above: Performed By: #### E RUR, UMICRO #### [facility] [address] [place] [address] Dr. Nelson Pollock WBC (U) [#/Vol] /uL Abnormal NONE SEEN [facility] Comment on above: Performed By: #### E LEISA ZAMORA #### [facility] [address] [place], [place] [address] Dr. Nelson Pollock XR CHEST 1 Von [...] PERNELL SARMIENTO Date: 2021-07-26 16:40 Normal [facility] Basic Metabolic Panelon 05-22 Anion gap [Moles/Vol] 16 mmol/L Normal 12-20 [facility] Specialist Comment on above: Result Comment: Effe ctive 04/25/2019 reference range changed. Performed By: #### B MP #### [facility] [address] [place], [place] [id number] Calcium [Mass/Vol] 9.5 mg/dL Normal 8.6-10.2 [facility] Specialist Comment on above: Performed By: #### B MP #### [facility] [address] [place], [place] [id number] Chloride [Moles/Vol] 106 mmol/L Normal 98-107 [facility] Comment on above: Performed By: #### B MP #### [facility] [address] [place], [place] [id number] CO2 [Moles/Vol] 24 mmol/L Normal 20-31 [facility] Comment on above: Performed By: #### B MP #### [facility] [address] [place], [place] [id number] Creatinine [Mass/Vol] 0.9 mg/dL Normal 0.7-1.4 [facility] Specialist Comment on above: Performed By: #### B MP #### [facility] [address] [place], [place] [id number] eGFRAA 100 mL/min/1.73m2 Normal >60 [facility] Specialist Comment on above: Performed By: #### B MP #### [facility] [address] [place], [place] [id number] eGFRNAA 83 mL/min/1.73m2 Normal >60 [facility] Specialist Comment on above: Performed By: #### B MP #### [facility] [address] [place], [place] [id number] Glucose [Mass/Vol] 85 mg/dL Normal 65-99 [facility] Comment on above: Result Comment: For FASTING Glucose --- ADA reference ranges: Normal 65-99 mg/dl Prediabetes 100-125 Diabetes >/= 126 Performed By: #### B MP #### [facility] [address] [place], [place] [id number] Potassium [Moles/Vol] 4.1 mmol/L Normal 3.5-5.5 [facility] Comment on above: Performed By: #### B MP #### [facility] [address] [place], [place] [id number] Sodium [Moles/Vol] 142 mmol/L Normal 135-146 [facility] Comment on above: Performed By: #### B MP #### [facility] [address] [place], [place] [id number] Urea nitrogen [Mass/Vol] 16 mg/dL Normal 7-25 [facility] Comment on above: Performed By: #### B MP #### [facility] [address] [place], [place] [id number] CBC AUTO DIFFon 05-06-2021 BASO # 0.1 103/ul Normal 0.0-0.1 [facility] Comment on above: Performed By: #### C BC #### [facility] [address] [address] [address] Nelson Pollock Basophils/100 WBC (Bld) 0.8 % Normal 0.2-2.0 [facility] Comment on above: Performed By: #### C BC #### [facility] [address] [address] [address] Nelson Pollock EO # 0.3 103/ul Normal 0.0-0.7 [facility] Comment on above: Performed By: #### C BC #### [facility] [address] [place] [address] Dr. Nelson Pollock Eosinophils/100 WBC (Bld) 2.8 % Normal 0.9-7.0 [facility] Comment on above: Performed By: #### C BC #### [facility] [address] [place] [address] Dr. Nelson Pollock Erythrocyte distribution width (RBC) [Ratio] 13.2 % Normal 11.0-15.0 [facility] Comment on above: Performed By: #### C BC #### [facility] [address] [place] [address] Dr. Nelson Pollock Hematocrit (Bld) [Volume fraction] 45.8 % Normal 42.0-54.0 [facility] Comment on above: Performed By: #### C BC #### [facility] [address] [place] [address] Dr. Nelson Pollock Hemoglobin (Bld) [Mass/Vol] 15.6 g/dL Normal 14.0-18.0 [facility] Comment on above: Performed By: #### C BC #### [facility] [address] [place] [address] Dr. Nelson Pollock IG # 0.04 10e3/ul Critically high 0.00-0.03 [facility] Comment on above: Performed By: #### C BC #### [facility] [address] [place] [address] Dr. Nelson Pollock IG % 0.4 % Normal 0.0-0.5 [facility] Comment on above: Performed By: #### C BC #### [facility] [address] [place] [address] Dr. Nelson Pollock LYMPH # 3.1 103/ul Normal 1.2-3.8 [facility] Comment on above: Performed By: #### C BC #### [facility] [address] [place] [address] Dr. Nelson Pollock Lymphocytes/100 WBC (Bld) 27.2 % Normal 20.5-60.0 [facility] Comment on above: Performed By: #### C BC #### [facility] [address] [place] [address] Dr. Nelson Pollock MANUAL DIFF REQ NO Normal [facility] Comment on above: Performed By: #### C BC #### [facility] [address] [place] [address] Dr. Nelson Pollock MCH (RBC) [Entitic mass] 29.1 pg Normal 25.9-34.0 [facility] Comment on above: Performed By: #### C BC #### [facility] [address] [place] [address] Dr. Nelson Pollock MCHC (RBC) [Mass/Vol] 34.1 g/dL Normal 29.9-35.2 [facility] Comment on above: Performed By: #### C BC #### [facility] [address] [place] [address] Dr. Nelson Pollock MCV (RBC) [Entitic vol] 85.3 fL Normal 80.0-94.0 [facility] Comment on above: Performed By: #### C BC #### [facility] [address] [place] [address] Dr. Nelson Pollock MONO # 1.0 103/ul Critically high 0.3-0.[address] [facility] Comment on above: Performed By: #### C BC #### [facility] [address] [place] [address] Dr. Nelson Pollock Monocytes/100 WBC (Bld) 9.0 % Normal 1.7-12.0 [facility] Comment on above: Performed By: #### C BC #### [facility] [address] [place] [address] Dr. Nelson Pollock NEUT # 6.8 103/ul Critically high 1.4-6.[address] [facility] Comment on above: Performed By: #### C BC #### [facility] [address] [place] [address] Dr. Nelson Pollock Neutrophils/100 WBC (Bld) 59.8 % Normal 43.0-75.0 [facility] Comment on above: Performed By: #### C BC #### [facility] [address] [address] [address] Nelson Pollock Platelet mean volume (Bld) [Entitic vol] 10.3 fL Normal 9.5-13.5 [facility] Comment on above: Performed By: #### C BC #### [facility] [address] [address] [address] Nelson Pollock PLT 196 103/ul Normal 150-450 [facility] Comment on above: Performed By: #### C BC #### [facility] [address] [address] [address] Nelson Pollock RBC 5.37 106/ul Normal 4.70-6.10 [facility] Comment on above: Performed By: #### C BC #### [facility] [address] [address] [address] Nelson Pollock WBC 11.3 103/ul Critically high 4.0-11.0 [facility] Comment on above: Performed By: #### C BC #### [facility] [address] [address] [address] Nelson Pollock PROF CHEM 8 (BAS METB)on Anion gap [Moles/Vol] 10.8 mmol/L Normal [facility] Comment on above: Performed By: #### B JOVANI HSTROPN ####[facility] [address] [address]DrErika Pollock Calcium [Mass/Vol] 8.8 mg/dL Normal 8.4-10.2 [facility] Comment on above: Performed By: #### B JOVANI HSTROPN ####[facility] [id number] [address]DrErika Pollock Chloride [Moles/Vol] 104 mmol/L Normal 98-107 [facility] Comment on above: Performed By: #### B JOVANI HSTROPN ####[facility] [address] [address]DrErika Pollock CO2 [Moles/Vol] 26.7 mmol/L Normal 22.0-30.0 [facility] Comment on above: Performed By: #### B MP, HSTROPN ####[facility] [address] [id number]. Nelson Pollock Creatinine [Mass/Vol] 0.95 mg/dL Normal 0.66-1.25 [facility] Comment on above: Performed By: #### B JOVANI, HSTROPN ####[facility] [address] [id number]. Nelson Pollock EGFR-AF KITTITIAN >60 Normal >=60 [facility] Comment on above: Performed By: #### B JOVANI, HSTROPN ####[facility] [address] [id number]. Nelson Pollock EGFR-NON AF KITTITIAN >60 Normal >=60 [facility] Comment on above: Performed By: #### B JOVANI, HSTROPN ####[facility] [address] [address]Dr. Nelson Pollock Glucose [Mass/Vol] 121 mg/dL Critically high 74-106 [facility] Comment on above: Performed By: #### B JOVANI, HSTROPN ####[facility] [address] [phone]. Nelson Pollock Potassium [Moles/Vol] 3.5 mmol/L Normal 3.4-5.0 [facility] Comment on above: Performed By: #### B JOVANI, HSTROPN ####[facility] [address] [address]Dr. Nelson Pollock Sodium [Moles/Vol] 138 mmol/L Normal 137-145 [facility] Comment on above: Performed By: #### B JOVANI, HSTROPN ####[facility] [address] [phone]. Nelson Pollock Urea nitrogen [Mass/Vol] 12.0 mg/dL Normal 9.0-20.0 [facility] Comment on above: Performed By: #### B JOVANI, HSTROPN ####[facility] [address] [address]Dr. Nelson Pollock Urea nitrogen/Creatinine [Mass ratio] 12.6 mg/mg Normal [facility] Comment on above: Performed By: #### B JOVANI HSTROPN ####[facility] [address] [place], [place] [address]HwDr. Nelson Pollock TROPONIN, HIGH SENSITIVITYon 05-06-2021 HSTROP 41.0 pg/mL Normal 4.0-42.2 [facility] Comment on above: Result Comment: CUT- OFF POINTS HAVE BEEN ESTABLISHED BASED ON THE FOURTH UNIVERSAL DEFINITIONS OF MYOCARDIAL INFARCTION. THE UPPER REFERENCE LIMIT (URL) OF TROPONIN, DEFINED THE 99TH PERCENTILE OF cTnI DISTRIBUTION IN A REFERENCE POPULATION, HAS BEEN CONFIRMED THE DECISION THRESHOLD FOR VA DIAGNOSIS. Performed By: #### B JOVANI HSTROPN ####[facility] [address] [place], [place] [address]PvDr. Nelson Pollock XR CHEST 1 Von 05-06-2021 [...] CARLTON BRAVO Date: 2021-05-06 20:10 Normal [facility] BNPon 01-06-2021 Natriuretic peptide B (Bld) [Mass/Vol] 268.0 pg/mL Normal <=1,800.0 [facility] Comment on above: Performed By: #### B [employer] #### [facility] [address] [place], [place] [address] Dr. Nelson Pollock CBC AUTO DIFFon 01-06-2021 BASO # 0.1 103/ul Normal 0.0-0.1 [facility] Comment on above: Performed By: #### C BC #### [facility] [address] [place], [place] [address] Dr. Nelson Pollock Basophils/100 WBC (Bld) 0.6 % Normal 0.2-2.0 [facility] Comment on above: Performed By: #### C BC #### [facility] [address] [place] [address] Dr. Nelson Pollock EO # 0.2 103/ul Normal 0.0-0.7 [facility] Comment on above: Performed By: #### C BC #### [facility] [address] [place] [address] Dr. Nelson Pollock Eosinophils/100 WBC (Bld) 1.6 % Normal 0.9-7.0 [facility] Comment on above: Performed By: #### C BC #### [facility] [address] [place] [address] Dr. Nelson Pollock Erythrocyte distribution width (RBC) [Ratio] 13.9 % Normal 11.0-15.0 [facility] Comment on above: Performed By: #### C BC #### [facility] [address] [place] [address] Dr. Nelson Pollock Hematocrit (Bld) [Volume fraction] 46.4 % Normal 42.0-54.0 [facility] Comment on above: Performed By: #### C BC #### [facility] [address] [place] [address] Dr. Nelson Pollock Hemoglobin (Bld) [Mass/Vol] 15.5 g/dL Normal 14.0-18.0 [facility] Comment on above: Performed By: #### C BC #### [facility] [address] [place] [address] Dr. Nelson Pollock IG # 0.04 10e3/ul Critically high 0.00-0.03 [facility] Comment on above: Performed By: #### C BC #### [facility] [address] [place] [address] Dr. Nelson Pollock IG % 0.4 % Normal 0.0-0.5 [facility] Comment on above: Performed By: #### C BC #### [facility] [address] [place] [address] Dr. Nelson Pollock LYMPH # 2.3 103/ul Normal 1.2-3.8 [facility] Comment on above: Performed By: #### C BC #### [facility] [address] [place] [address] Dr. Nelson Pollock Lymphocytes/100 WBC (Bld) 22.8 % Normal 20.5-60.0 [facility] Comment on above: Performed By: #### C BC #### [facility] [address] [place] [address] Dr. Nelson Pollock MANUAL DIFF REQ NO Normal [facility] Comment on above: Performed By: #### C BC #### [facility] [address] [place] [address] Dr. Nelson Pollock MCH (RBC) [Entitic mass] 28.3 pg Normal 25.9-34.0 [facility] Comment on above: Performed By: #### C BC #### [facility] [address] [place] [address] Dr. Nelson Pollock MCHC (RBC) [Mass/Vol] 33.4 g/dL Normal 29.9-35.2 [facility] Comment on above: Performed By: #### C BC #### [facility] [address] [place] [address] Dr. Nelson Pollock MCV (RBC) [Entitic vol] 84.7 fL Normal 80.0-94.0 [facility] Comment on above: Performed By: #### C BC #### [facility] [address] [place] [address] Dr. Nelson Pollock MONO # 0.8 103/ul Normal 0.3-0.8 [facility] Comment on above: Performed By: #### C BC #### [facility] [address] [place] [address] Dr. Nelson Pollock Monocytes/100 WBC (Bld) 8.0 % Normal 1.7-12.0 [facility] Comment on above: Performed By: #### C BC #### [facility] [address] [place] [address] Dr. Nelson Pollock NEUT # 6.8 103/ul Critically high 1.4-6.[address] [facility] Comment on above: Performed By: #### C BC #### [facility] [address] [address] [address] Nelson Pollock Neutrophils/100 WBC (Bld) 66.6 % Normal 43.0-75.0 [facility] Comment on above: Performed By: #### C BC #### [facility] [address] [address] [address] Nelson Pollock Platelet mean volume (Bld) [Entitic vol] 10.6 fL Normal 9.5-13.5 [facility] Comment on above: Performed By: #### C BC #### [facility] [address] [address] [address] Nelson Pollock PLT 201 103/ul Normal 150-450 [facility] Comment on above: Performed By: #### C BC #### [facility] [address] [place] [address] Dr. Nelson Pollock RBC 5.48 106/ul Normal 4.70-6.10 [facility] Comment on above: Performed By: #### C BC #### [facility] [address] [place] [address] Dr. Nelson Pollock WBC 10.2 103/ul Normal 4.0-11.0 [facility] Comment on above: Performed By: #### C BC #### [facility] [address] [place] [address] Dr. Nelson Pollock PROF 14(COMP METB)on 021 Albumin [Mass/Vol] 3.8 g/dL Normal 3.5-5.0 [facility] Comment on above: Performed By: #### C JOVANI HSTROPN #### [facility] [address] [address] [address] Nelson Pollock Albumin/Globulin [Mass ratio] 1.2 {ratio} Normal [facility] Comment on above: Performed By: #### C JOVANI HSTROPN #### [facility] [address] [place] [address] Dr. Nelson Pollock ALP [Catalytic activity/Vol] 73 U/L Normal 38-126 [facility] Comment on above: Performed By: #### C MP, HSTROPN #### [facility] [address] [address] [address] Nelson Pollock ALT [Catalytic activity/Vol] 20 U/L Critically low 21-72 [facility] Comment on above: Performed By: #### C MP, HSTROPN #### [facility] [address] [address] [address] Nelson Pollock Anion gap [Moles/Vol] 11.0 mmol/L Normal [facility] Comment on above: Performed By: #### C MP, HSTROPN #### [facility] [address] [address] [address] Nelson Pollock AST [Catalytic activity/Vol] 18 U/L Normal 17-59 [facility] Comment on above: Performed By: #### C MP, HSTROPN #### [facility] [address] [place] [address] Dr. Nelson Pollock Bilirubin [Mass/Vol] 1.7 mg/dL Critically high 0.2-1.3 [facility] Comment on above: Performed By: #### C MP, HSTROPN #### [facility] [address] [place] [address] Dr. Nelson Pollock Calcium [Mass/Vol] 8.9 mg/dL Normal 8.4-10.2 [facility] Comment on above: Performed By: #### C MP, HSTROPN #### [facility] [address] [address] [address] Nelson Pollock Chloride [Moles/Vol] 105 mmol/L Normal 98-107 [facility] Comment on above: Performed By: #### C MP, HSTROPN #### [facility] [address] [place] [address] Dr. Nelson Pollock CO2 [Moles/Vol] 26.5 mmol/L Normal 22.0-30.0 [facility] Comment on above: Performed By: #### C MP, HSTROPN #### [facility] [address] [place] [address] Dr. Nelson Pollock Creatinine [Mass/Vol] 0.82 mg/dL Normal 0.66-1.25 [facility] Comment on above: Performed By: #### C JOVANI, HSTROPN #### [facility] [address] [address] [address] Nelson Pollock EGFR-AF KITTITIAN >60 Normal >=60 [facility] Comment on above: Performed By: #### C MP, HSTROPN #### [facility] [address] [address] [address] Nelson Pollock EGFR-NON AF KITTITIAN >60 Normal >=60 [facility] Comment on above: Performed By: #### C JOVANI, HSTROPN #### [facility] [address] [place] [address] Dr. Nelson Pollock Globulin (S) [Mass/Vol] 3.3 g/dL Normal [facility] Comment on above: Performed By: #### C JOVANI, HSTROPN #### [facility] [address] [address] [address] Nelson Pollock Glucose [Mass/Vol] 87 mg/dL Normal 74-106 [facility] Comment on above: Performed By: #### C JOVANI, HSTROPN #### [facility] [address] [address] [address] Nelson Pollock Potassium [Moles/Vol] 3.5 mmol/L Normal 3.4-5.0 [facility] Comment on above: Performed By: #### C JOVANI, HSTROPN #### [facility] [address] [place] [address] Dr. Nelson Pollock Protein [Mass/Vol] 7.1 g/dL Normal 6.1-8.2 [facility] Comment on above: Performed By: #### C MP, HSTROPN #### [facility] [address] [place] [address] Dr. Nelson Pollock Sodium [Moles/Vol] 139 mmol/L Normal 137-145 [facility] Comment on above: Performed By: #### C MP, HSTROPN #### [facility] [address] [place], [place] [address] Dr. Nelson Pollock Urea nitrogen [Mass/Vol] 13.0 mg/dL Normal 9.0-20.0 [facility] Comment on above: Performed By: #### C JOVANI, HSTROPN #### [facility] [address] [place], [place] [address] Dr. Nelson Pollock Urea nitrogen/Creatinine [Mass ratio] 15.9 mg/mg Normal [facility] Comment on above: Performed By: #### C MP, HSTROPN #### [facility] [address] [place], [place] [address] Dr. Nelson Pollock TROPONIN, HIGH SENSITIVITYon 01-06-2021 HSTROP 43.4 pg/mL Critically high 4.0-42.[address] [facility] Comment on above: Result Comment: CUT- OFF POINTS HAVE BEEN ESTABLISHED BASED ON THE FOURTH UNIVERSAL DEFINITIONS OF MYOCARDIAL INFARCTION. THE UPPER REFERENCE LIMIT (URL) OF TROPONIN, DEFINED THE 99TH PERCENTILE OF cTnI DISTRIBUTION IN A REFERENCE POPULATION, HAS BEEN CONFIRMED THE DECISION THRESHOLD FOR VA DIAGNOSIS. Performed By: #### C JOVANI, HSTROPN #### [facility] [address] [address] [address] Nelson Pollock XR CHEST 1 Von [...] JASKARAN CARRERA Date: 2021-01-06 11:24 Normal [facility] BASIC METABOLIC PANELon - Calcium [Mass/Vol] 8.5 mg/dL Low 8.6-10.3 [facility] Comment on above: Order Comment: No: D o not add to previous draw Performed By: #### 0 0071, [id number] #### [facility] [address] [place] [address], [facility] Chloride [Moles/Vol] 108 mmol/L High 98-107 [facility] Comment on above: Order Comment: No: D o not add to previous draw Performed By: #### 0 0071, [id number] #### [facility] [address] [place] [address], [place] CO2 [Moles/Vol] 27 mmol/L Normal 21-31 [facility] Comment on above: Order Comment: No: D o not add to previous draw Performed By: #### 0 0071, [id number] #### [facility] [address] [place] [address], [facility] Creatinine [Mass/Vol] 0.89 mg/dL Normal 0.70-1.30 [facility] Comment on above: Order Comment: No: D o not add to previous draw Performed By: #### 0 0071, [id number] #### [facility] [address] [place] [address], [place] GFR/1.73 sq M predicted among blacks MDRD (S/P/Bld) [Vol rate/Area] mL/min/{1.73_m2} Normal >60 [facility] Comment on above: Order Comment: No: D o not add to previous draw Result Comment: Calc ulation may not be valid for patients over 70 years Performed By: #### 0 0071, [id number] #### [facility] [address] [place] [address], [place] GFR/1.73 sq M predicted among non-blacks MDRD (S/P/Bld) [Vol rate/Area] mL/min/{1.73_m2} Normal >60 [facility] Comment on above: Order Comment: No: D o not add to previous draw Result Comment: Calc ulation may not be valid for patients over 70 years Performed By: #### 0 0071, [id number] #### [facility] [address] [place] [address], [place] Glucose [Mass/Vol] 78 mg/dL Normal 70-100 [facility] Comment on above: Order Comment: No: D o not add to previous draw Performed By: #### 0 0071, [id number] #### [facility] [address] [place] [address], [place] Potassium [Moles/Vol] 4.0 mmol/L Normal 3.5-5.1 [facility] Comment on above: Order Comment: No: D o not add to previous draw Performed By: #### 0 0071, [id number] #### [facility] [address] [place] [address], [place] Sodium [Moles/Vol] 144 mmol/L Normal 136-145 [facility] Comment on above: Order Comment: No: D o not add to previous draw Performed By: #### 0 0071, [id number] #### [facility] [address] [place] [address], [place] Urea nitrogen [Mass/Vol] 21 mg/dL Normal 7-25 [facility] Comment on above: Order Comment: No: D o not add to previous draw Performed By: #### 0 0071, [id number] #### [facility] [address] [place] [address], [place] Calcium [Mass/Vol] 8.3 mg/dL Low 8.6-10.3 [facility] Comment on above: Performed By: #### 0 0071, [id number], 14305 #### [facility] [address] [place] [address], [place] Chloride [Moles/Vol] 108 mmol/L High 98-107 [facility] Comment on above: Performed By: #### 0 0071, 71063, 92376 #### [facility] [address] [place] [address], [place] CO2 [Moles/Vol] 24 mmol/L Normal 21-31 [facility] Comment on above: Performed By: #### 0 0071, [id number], [id number] #### [facility] [address] [place] [address], [facility] Creatinine [Mass/Vol] 0.90 mg/dL Normal 0.70-1.30 [facility] Comment on above: Performed By: #### 0 0071, 85037, 21683 #### [facility] [address] [place] [address], [facility] GFR/1.73 sq M predicted among blacks MDRD (S/P/Bld) [Vol rate/Area] mL/min/{1.73_m2} Normal >60 [facility] Comment on above: Result Comment: Calc ulation may not be valid for patients over 70 years Performed By: #### 0 0071, 63946, 37071 #### [facility] [address] [place] [address], [place] GFR/1.73 sq M predicted among non-blacks MDRD (S/P/Bld) [Vol rate/Area] mL/min/{1.73_m2} Normal >60 [facility] Comment on above: Result Comment: Calc ulation may not be valid for patients over 70 years Performed By: #### 0 0071, 93139, 24397 #### [facility] [address] [place] [address], [place] Glucose [Mass/Vol] 101 mg/dL High 70-100 [facility] Comment on above: Performed By: #### 0 0071, [id number], [id number] #### [facility] [address] [place] [address], [place] Potassium [Moles/Vol] 3.5 mmol/L Normal 3.5-5.1 [facility] Comment on above: Performed By: #### 0 0071, [id number], 07459 #### [facility] [address] [place] [id number], [facility] Sodium [Moles/Vol] 141 mmol/L Normal 136-145 [facility] Comment on above: Performed By: #### 0 0071, 19755, [id number] #### [facility] [address] [place] [address], [place] Urea nitrogen [Mass/Vol] 24 mg/dL Normal 7-25 [facility] Comment on above: Performed By: #### 0 0071, 18443, 83015 #### [facility] [address] [place] [address], [facility] CBC COMPLETE BLOOD COUNTon 0 - Erythrocyte distribution width (RBC) [Ratio] 13.8 % Normal 11.5-15.0 [facility] Comment on above: Order Comment: No: D o not add to previous draw Performed By: #### 5 [id number] #### [facility] [address] [place] [address], [facility] Hematocrit (Bld) [Volume fraction] 37.7 % Low 39.0-50.0 [facility] Comment on above: Order Comment: No: D o not add to previous draw Performed By: #### 5 [id number] #### [facility] [address] [place] [address], [facility] Hemoglobin (Bld) [Mass/Vol] 12.9 g/dL Low 13.0-17.0 [facility] Comment on above: Order Comment: No: D o not add to previous draw Performed By: #### 5 [id number] #### [facility] [address] [place] [address], [place] MCH (RBC) [Entitic mass] 29.1 pg Normal 27.0-33.0 [facility] Comment on above: Order Comment: No: D o not add to previous draw Performed By: #### 5 [id number] #### [facility] [address] [place] [address], [place] MCHC (RBC) [Mass/Vol] 34.2 g/dL Normal 32.0-35.0 [facility] Comment on above: Order Comment: No: D o not add to previous draw Performed By: #### 5 [id number] #### [facility] [address] [place] [address], [facility] MCV (RBC) [Entitic vol] 85.1 fL Normal 82.0-98.0 [facility] Comment on above: Order Comment: No: D o not add to previous draw Performed By: #### 5 [id number] #### [facility] [address] [place] [address], [facility] Nucleated RBC/100 WBC (Bld) [Ratio] 0 % Normal 0-0 [facility] Comment on above: Order Comment: No: D o not add to previous draw Performed By: #### 5 0608 #### [facility] [address] [place] [address], [facility] PLAT CNT 198 10*3/uL Normal 150-400 The [facility] Comment on above: Order Comment: No: D o not add to previous draw Performed By: #### 5 0608 #### [facility] [address] [facility] [place] [address], [facility] RBC (Bld) [#/Vol] 4.43 10*6/uL Normal 4.20-5.70 The [facility] Comment on above: Order Comment: No: D o not add to previous draw Performed By: #### 5 0608 #### [facility] [address] [place] [id number], [facility] WBC (Bld) [#/Vol] 10.40 10*3/uL Normal 4.00-10.60 [facility] Comment on above: Order Comment: No: D o not add to previous draw Performed By: #### 5 [id number] #### [facility] [address] [place] [address], [facility] LIPID PROFILEon 07-02-2020 Cholesterol [Mass/Vol] 119 mg/dL Low 120-200 [facility] Comment on above: Result Comment: CHOL ESTEROL REFERENCE RANGE: 20 YEARS AND OLDER CARDIOVASCULAR RISK Less than 200 mg/dl Low Risk 200 to 239 mg/dl Borderline Risk 240 mg/dl and greater High Risk Performed By: #### 0 0071, 43790, 91227 #### [facility] [address] [place] [address], [place] Cholesterol in HDL [Mass/Vol] 37 mg/dL Normal 23-92 [facility] Comment on above: Result Comment: Slig ht variation in normal range could be due to gender and/or age. HDL CHOLESTEROL REFERENCE RANGE: 20 years and older Cardiovascular Risk > or =60 mg/dL Desirable 40 TO 59 mg/dL Low Risk <40 mg/dL High Risk Performed By: #### 0 0071, 66717, 58041 #### [facility] [address] [place] [address], [place] Cholesterol in LDL [Mass/Vol] 68 mg/dL Normal 0-130 [facility] Comment on above: Result Comment: LDL IS A CALCULATION LDL IS ONLY VALID IF THE TRIG IS LESS THAN 400. Performed By: #### 0 0071, 70179, 95068 #### [facility] [address] [place] [address], [place] Cholesterol.total/Ch olesterol in HDL [Mass ratio] 3.2 {ratio} Normal 0.0-4.5 [facility] Comment on above: Performed By: #### 0 0071, 66345, 62081 #### [facility] [address] [place] [address], [place] NON-HDL CHOLESTEROL 82 mg/dL Normal [facility] Comment on above: Performed By: #### 0 0071, 61307, 06325 #### [facility] [address] [place] [address], [place] Triglyceride [Mass/Vol] 71 mg/dL Normal 40-149 [facility] Comment on above: Result Comment: TRIG LYCERIDE REFERENCE RANGE: 20 YEARS AND OLDER CARDIOVASCULAR RISK LESS THAN 150 mg/dl LOW RISK 150 TO 199 mg/dl BORDERLINE RISK 200 mg/dl AND GREATER HIGH RISK Performed By: #### 0 0071, 59854, 33516 #### [facility] [address] [place] [address], [facility] VLDL CHOL 14 mg/dL Normal 0-40 [facility] Comment on above: Performed By: #### 0 0071, 75122, 25707 #### [facility] [address] [place] [address], [facility] MAGNESIUM BLOODon 07-02-2020 Magnesium [Mass/Vol] 1.5 mg/dL Low 1.9-2.7 [facility] Comment on above: Order Comment: No: D o not add to previous draw Performed By: #### 0 0071, 30602 #### [facility] [address] [place] [address], [facility] Magnesium [Mass/Vol] 1.3 mg/dL Low 1.9-2.7 [facility] Comment on above: Performed By: #### 1 0070, 45633 #### [facility] [address] [facility] [place] [address], [facility] TROPONIN-Ion 07-02-2020 Troponin I.cardiac [Mass/Vol] 0.03 ng/mL Normal 0.00-0.04 The [facility] Comment on above: Order Comment: No: D o not add to previous draw Result Comment: REFE RENCE RANGES: 0.00 - 0.04 ng/ml NORMAL 0.05 - 0.50 ng/ml INDETERMINATE > 0.50 ng/ml CONSISTENT WITH AN M.I. Performed By: #### 0 0071, 47620, 21489 #### [facility] [address] [place] [address], [facility] Troponin I.cardiac [Mass/Vol] 0.03 ng/mL Normal 0.00-0.04 [facility] Comment on above: Order Comment: No: D o not add to previous draw Result Comment: REFE RENCE RANGES: 0.00 - 0.04 ng/ml NORMAL 0.05 - 0.50 ng/ml INDETERMINATE > 0.50 ng/ml CONSISTENT WITH AN M.I. Performed By: #### 1 0070, 71818 #### [facility] [address] [place] [address], [facility] UFH HEPARIN ASSAYon 07-03-19 UNFRACTIONATED HEPARIN 0.63 IU/mL Normal 0.30-0.70 The [facility] Comment on above: Result Comment: Badger roxaban and Apixaban will interfere with the anti Xa assay used to monitor UFH and LMWH. Performed By: #### 5 0608 #### [facility] [address] UNFRACTIONATED HEPARIN 0.48 IU/mL Normal 0.30-0.70 [facility] Comment on above: Order Comment: No: D o not add to previous draw Result Comment: Danica roxaban and Apixaban will interfere with the anti Xa assay used to monitor UFH and LMWH. Performed By: #### 5 0608 #### [facility] [address] [place] [address], [facility] UNFRACTIONATED HEPARIN 0.34 IU/mL Normal 0.30-0.70 [facility] Comment on above: Result Comment: Danica roxaban and Apixaban will interfere with the anti Xa assay used to monitor UFH and LMWH. Performed By: #### 5 0608 #### [facility] [address] [place] [address], [facility] APTTon 07-01-2020 aPTT Coag (Bld) [Time] 39.8 s High 25.0-35.0 The [facility] Comment on above: Order Comment: No: D [...] PURPOSE. Performed By: #### 5 [id number] #### [facility] [address] [place] [address], [facility] BASIC METABOLIC PANELon 03- Calcium [Mass/Vol] 8.6 mg/dL Normal 8.6-10.3 [facility] Comment on above: Order Comment: No: D o not add to previous draw Performed By: #### 5 0608 #### [facility] [address] [place] [address], [facility] Chloride [Moles/Vol] 104 mmol/L Normal 98-107 [facility] Comment on above: Order Comment: No: D o not add to previous draw Performed By: #### 5 0608 #### [facility] [address] [place] [address], [facility] CO2 [Moles/Vol] 27 mmol/L Normal 21-31 The [facility] Comment on above: Order Comment: No: D o not add to previous draw Performed By: #### 5 0608 #### [facility] [address] [place] [id number], [facility] Creatinine [Mass/Vol] 0.99 mg/dL Normal 0.70-1.30 [facility] Comment on above: Order Comment: No: D o not add to previous draw Performed By: #### 5 0608 #### [facility] [address] [place] [address], [facility] GFR/1.73 sq M predicted among blacks MDRD (S/P/Bld) [Vol rate/Area] mL/min/{1.73_m2} Normal >60 The [facility] Comment on above: Order Comment: No: D o not add to previous draw Result Comment: Calc ulation may not be valid for patients over 70 years Performed By: #### 5 0608 #### [facility] [address] [place] [address], [facility] GFR/1.73 sq M predicted among non-blacks MDRD (S/P/Bld) [Vol rate/Area] mL/min/{1.73_m2} Normal >60 The [facility] Comment on above: Order Comment: No: D o not add to previous draw Result Comment: Calc ulation may not be valid for patients over 70 years Performed By: #### 5 0608 #### [facility] [address] [place] [address], [facility] Glucose [Mass/Vol] 126 mg/dL High 70-100 [facility] Comment on above: Order Comment: No: D o not add to previous draw Performed By: #### 5 0608 #### [facility] [address] [place] [address], [facility] Potassium [Moles/Vol] 2.9 mmol/L Low 3.5-5.1 [facility] Comment on above: Order Comment: No: D o not add to previous draw Performed By: #### 5 0608 #### [facility] [address] [place] [address], [facility] Sodium [Moles/Vol] 141 mmol/L Normal 136-145 [facility] Comment on above: Order Comment: No: D o not add to previous draw Performed By: #### 5 0608 #### [facility] [address] [place] [address], [facility] Urea nitrogen [Mass/Vol] 25 mg/dL Normal 7-25 [facility] Comment on above: Order Comment: No: D o not add to previous draw Performed By: #### 5 0608 #### [facility] [address] [place] [address], [facility] CBC COMPLETE BLOOD COUNTon 0 3- Erythrocyte distribution width (RBC) [Ratio] 13.7 % Normal 11.5-15.0 [facility] Comment on above: Order Comment: No: D o not add to previous draw Performed By: #### 5 0608 #### [facility] [address] [place] [address], [facility] Hematocrit (Bld) [Volume fraction] 39.8 % Normal 39.0-50.0 [facility] Comment on above: Order Comment: No: D o not add to previous draw Performed By: #### 5 0608 #### [facility] [address] [place] [address], [facility] Hemoglobin (Bld) [Mass/Vol] 13.7 g/dL Normal 13.0-17.0 [facility] Comment on above: Order Comment: No: D o not add to previous draw Performed By: #### 5 0608 #### [facility] [address] [place] [address], [facility] MCH (RBC) [Entitic mass] 28.7 pg Normal 27.0-33.0 [facility] Comment on above: Order Comment: No: D o not add to previous draw Performed By: #### 5 0608 #### [facility] [address] MCHC (RBC) [Mass/Vol] 34.4 g/dL Normal 32.0-35.0 [facility] Comment on above: Order Comment: No: D o not add to previous draw Performed By: #### 5 0608 #### [facility] [address] [facility] [place] [address], [facility] MCV (RBC) [Entitic vol] 83.3 fL Normal 82.0-98.0 [facility] Comment on above: Order Comment: No: D o not add to previous draw Performed By: #### 5 0608 #### [facility] [address] [place] [address], [facility] Nucleated RBC/100 WBC (Bld) [Ratio] 0 % Normal 0-0 [facility] Comment on above: Order Comment: No: D o not add to previous draw Performed By: #### 5 0608 #### [facility] [address] [place] [address], [facility] PLAT CNT 184 10*3/uL Normal 150-400 The [facility] Comment on above: Order Comment: No: D o not add to previous draw Performed By: #### 5 0608 #### [facility] [address] [facility] [place] [address], [facility] RBC (Bld) [#/Vol] 4.78 10*6/uL Normal 4.20-5.70 The [facility] Comment on above: Order Comment: No: D o not add to previous draw Performed By: #### 5 0608 #### [facility] [address] [facility] [place] [address], [facility] WBC (Bld) [#/Vol] 9.34 10*3/uL Normal 4.00-10.60 [facility] Comment on above: Order Comment: No: D o not add to previous draw Performed By: #### 5 0608 #### [facility] [address] PROTHROMBIN TIMEon 1 INR Coag (PPP) [Relative time] 1.12 {INR} Normal 0.91-1.[address] [facility] Comment on above: Order Comment: [...] 1995;108:[id number]-[id number]. Performed By: #### 5 0608 #### [facility] [address] [employer] [address] PT Coag (PPP) [Time] 14.4 s Normal 12.3-14.8 [facility] Comment on above: Order Comment: No: D o not add to previous draw Result Comment: ALL RESULTS MUST BE INTERPRETED WITH RESPECT TO BLOOD DRAWING ARTIFACT OR DILUTION ERROR OF ANTICOAGULANT AT THE TIME OF SAMPLING. Performed By: #### 5 0608 #### [facility] [address] [facility]. [address] TROPONIN-Ion 07-01-2020 Troponin I.cardiac [Mass/Vol] 0.02 ng/mL Normal 0.00-0.04 The [facility] Comment on above: Order Comment: No: D o not add to previous draw Result Comment: REFE RENCE RANGES: 0.00 - 0.04 ng/ml NORMAL 0.05 - 0.50 ng/ml INDETERMINATE > 0.50 ng/ml CONSISTENT WITH AN M.I. Performed By: #### 5 0608 #### [facility] [address] [facility]. [address] UFH HEPARIN ASSAYon 07-02-19 21 UNFRACTIONATED HEPARIN <0.10 Critically low 0.30-0.70 The [facility] Comment on above: Result Comment: Danica roxaban and Apixaban will interfere with the anti Xa assay used to monitor UFH and LMWH. RESULTS CHECKED AND CALLED. ACCURATELY READ BACK BY Jesus Manuel Velez RN at 214. Performed By: #### 5 [id number] #### [facility] [address] [facility] [place] [address], [facility] Encounters Encounter Date Encounter Type Care Provider Facility Start: 04-17-2023 End: 04-17-2023 ambulatory CANDI QUIROS [facility] Start: 03-16-2023 End: 03-16-2023 ambulatory SCOTT TAI Not Available Start: 02-19-2023 End: 02-19-2023 ambulatory CARLA SESAY [facility] Start: 12-09-2022 End: 12-09-2022 ambulatory CELIA DURHAM [facility] Start: 04-22-2022 End: 04-22-2022 ambulatory Driss Smith Other [facility] Start: 04-22-2022 Telephone encounter Driss álvarez [facility] Start: 12-19-2021 End: 12-19-2021 ambulatory Driss Smith Other [facility] Start: 12-19-2021 Telephone encounter Driss álvarez [facility] Start: 07-26-2021 End: 07-26-[address] PRAVEEN MEADOWS Facility:[facility] Start: 05-06-2021 End: 05-06-[address] SCOTT TAI Facility:[facility] Start: 01-06-2021 End: 01-06-[address] JASKARAN CARRERA Facility:[facility] Start: 07-01-2020 End: 07-02-2020 Patient encounter procedure VIDAL ODOM Facility:[facility] Start: 06-28-2018 End: 06-29-2018 Patient encounter procedure DEFAULT PHYSICIAN Facility:[facility] Procedures Date Procedure Procedure Detail Performing Clinician Start: 07-02-2020 MEASUREMENT OF CARDI AC TOTAL ACTIVITY, EXTERNAL APPROACH SAMER Tian BARI Start: 07-02-2020 ULTRASONOGRAPHY OF R IGHT AND LEFT HEART, TRANSESOPHAGEAL SAMER J DYAN Payers Date Payer Category Payer Unknown [id number] 1940 Unknown [id number] [id number] 1940 Unknown [id number] 2.16.8 [id number] 1940 Unknown [id number] 2.16.84 [id number] 1940 Unknown [id number] [id number] [id number] 1940 Unknown [id number] 2.16.84 [id number] 1940 Unknown [id number] Unknown Social History Date Type Detail Facility Sex Assigned At [facility] Other Clinical Notes 04-22-2022 to 04-17-2023 Note Date & Type Note Facility 04-17-2023 Note Patient here for 1 m o follow up echo and labs. Still denies chest pain, SOB, and palpitations. Was lightheaded this morning. Says his BP is still up and down . Review of Systems HENT: Positive for hearing loss. Neurological: Positive for light-headedness. All other systems reviewed and are negative. [facility] 02-19-2023 Note Patient here for 3 m [...] All other systems reviewed and are negative. [facility] 02-19-2023 Note Cardiology Clinic No te Subjective Radha Cabello is a 82 y.o. year old [...] 3 out of 3 bypass grafts Severe [place] coronary artery disease 70% stenosis in small obtuse marginal Coronary artery bypass graftin02/21/2010 Coronary artery (more content not included)... [facility] 12-09-2022 Note Currently stable without symptom s [facility] 12-09-2022 Note As above [facility] 12-09-2022 Note [facility]- II- remains eu volemic without exacerbation Continue GDMT- Asa, lipitor, coreg, lisinopril, aldactone Diuretic therapy- none at this time Monitor daily weights, I&O, fluid restriction 1.5-2L/day, renal function and electrolytes- Echocardiogram ordered for known reduced EF, recent chest pain and hypotension [facility] 12-09-2022 Note [facility] CARDIOLOGY PROGR ESS NOTE HPI: Radha Cabello is a 82 y.o. male here [...] CHF (congestive heart failure), NYHA class 2 (CMS/[facility]) [facility]- II- remains euvolemic without exacerbation Continue GDMT- Asa, lipitor, coreg, lisinopril, aldactone Diuretic therapy- none at this time Monitor daily weights, I&O, fluid restriction 1.5-2L/day, renal function and electrolytes- Echocardiogram ordered for known reduced EF, recent chest pain and hypotension Ischemic cardiomyopathy As above Dyspnea Currently stable without symptoms RTC 3 months [facility] 12-09-2022 Note Hypertension is curr ently well controlled, PCP had reduced multiple HTN meds r/t noted symptomatic hypotension Coreg, lisinopril and aldactone were all reduced by half [facility] 12-09-2022 Note Continue statin [facility] 12-09-2022 Note Coronary artery dise ase is stable Continue GDMT- ASA, coreg, lipitor, plavix, imdur, and lisinopril continue risk factor modifications- heart healthy diet, regular exercise as tolerated and continue all medications. [facility] 04-22-2022 Evaluation note Encounter Date Diagnosis Assessment Notes Apr, Liver lesion, right lobe (ICD-10 - K76.9) [facility] Other Evaluation noteNo InformationN[employer] Other History general Narrative - Reported* Type Description Date Medical History GERD Medical History HTN Medical History hyperlipidemia Medical History CHF Surgical History tonsillectomy Surgical History cholecystectomy Surgical History triple bypass Surgical History appendectomy Hospitalization History see surgical history [facility] Other Summary Purpose Family History No Family [...] Found Hospital Course Note MR#: [id number] I [facility] Pt. Name: Radha Cabello Admitted: 07/01/2020 Discharged: 07/02/2020 Date of [...] and content) DATE CREATED AUTHOR 06/29/[address] [facility] DATE CREATED AUTHOR AUTHOR'S ORGANIZ ATION 07/13/[address] [facility] DATE CREATED AUTHOR AUTHOR'S ORGANIZ ATION 06/17/2021 [facility] DATE CREATED AUTHOR AUTHOR'S ORGANIZ ATION 07/31/2021 [facility] DATE CREATED AUTHOR AUTHOR'S ORGANIZ ATION 09/23/2021 [facility] DATE CREATED AUTHOR AUTHOR'S ORGANIZ ATION 03/16/2023 [facility] dical Specialists [facility] DATE CREATED AUTHOR AUTHOR'S ORGANIZ ATION 04/19/2023 [facility] REASON FOR VISIT (unrecogniz ed section and [...] BE BASED ON THE PRIMARY CLINICAL RECORDS. [facility]. provides no warranty or guarantee of the accuracy or completeness of information in this document.
--- NOTE | 2023-05-22 19:22 | ECG_ITS ---
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
--- NOTE | 2023-05-22 19:22 | XR_ITS ---
The [address] [address] Patient Name: RADHA BOB MRN: [id number] date: 1940 Sex: M Assigned Patient Location: ER Current Patient Location: ER Accession/Order Number: [id number] Exam Date: 05/22/2023 19:59 Report Date: 05/22/2023 20:46 At the request of: ELDER THOMAS Procedure: XR chest 1V EXAM: XR chest 1V REASON FOR EXAM: Male, 82 years, chest pain. TECHNIQUE: A single AP view of the chest is performed. COMPARISON: 04/07/2023. FINDINGS: Cardiac monitoring leads overlie the chest. The lungs are underinflated. There is no focal consolidation. Normal pleura. There are mediastinal clips and sternal wires from a prior coronary artery bypass graft (CABG). The heart remains slightly enlarged. Normal mediastinum and gerri. Normal visualized pulmonary arteries. Normal visualized aortic arch and descending thoracic aorta. Normal visualized thoracic spine. Normal visualized ribs, clavicles, and shoulders. There is no demonstrated abnormality of the visualized soft tissue structures of the upper abdomen. XR/XR chest 1V IMPRESSION: Low lung volumes, without focal consolidation. Similar mild cardiomegaly. Postoperative changes of coronary artery bypass graft. Electronically authenticated by: APOLONIA MUNOZ Date: 05/22/2023 20:46
--- NOTE | 2023-05-22 19:23 | ED_ITS ---
HPI - General Adult General Chief complaint: Extremity Problem, Nontraumatic Stated complaint: Hypotension Time Seen by Provider: 05/22/23 19:21 Source: patient and family Mode of arrival: walk-in Limitations: no limitations History of Present Illness HPI narrative: past history of CABG 14 years ago. recurrent episodes of hypotension past couple of days. Tonight again his BP dropped to 88 systolic and this time he also has pain of his right arm. no dyspnea, chest pain or nausea. No fever or cough. He is feeling better now . His BP is normal. The right arm no longer hurts but is sore. Denies weakness of his extremities. Denies syncope Related Data Home Medications Medication Instructions Recorded Confirmed aspirin 81 mg tablet,delayed 81 mg PO DAILY 10/20/22 04/07/23 release (Adult Low Dose Aspirin) atorvastatin 40 mg tablet 40 mg PO DAILY 10/20/22 04/07/23 carvedilol 25 mg tablet 25 mg PO Q12H 10/20/22 04/07/23 clopidogrel 75 mg tablet 75 mg PO DAILY 10/20/22 04/07/23 isosorbide mononitrate 30 mg 30 mg PO DAILY 10/20/22 04/07/23 tablet,extended release 24 hr lisinopril 40 mg tablet 40 mg PO DAILY 10/20/22 04/07/23 nitroglycerin 0.4 mg sublingual 0.4 mg sublingual Q5M 10/20/22 04/07/23 tablet pantoprazole 40 mg tablet,delayed 40 mg PO DAILY 10/20/22 04/07/23 release spironolactone 25 mg tablet 25 mg PO DAILY 10/20/22 04/07/23 Allergies Allergy/AdvReac Type Severity Reaction Status Date / Time No Known Drug Allergies Allergy Verified 05/22/23 19:03 Review of Systems ROS Status of ROS 10 or more systems reviewed and unremark able except as noted in history and below [facility] Social History Smoking status: Never smoker Exam Constitutional Vital Signs, click to edit/add: Last Vital Signs Temp 97.8 F 05/22/23 18:59 Pulse 55 L 05/22/23 22:32 Resp 16 05/22/23 22:32 BP 99/63 05/22/23 22:32 Pulse Ox 95 05/22/23 22:32 O2 Del Method Room Air 02/02/24 22:32 Common normals: no apparent distress, average body habitus, oriented x3, no limitations, healthy appearing, alert and well nourished [facility] Common normals: normocephalic and head/scalp atraumatic Eye Common normals: EOMs intact bilaterally and conjunctivae normal Respiratory Common normals: normal respiratory effort, no retractions, no use of accessory muscles and clear to auscultation bilaterally Cardio Common normals: regular rate, regular rhythm, S1 normal heart sound and S2 normal heart sound GI Common normals: Normal to inspection, nondistended, normoactive bowel sounds present, soft to palpation and non-tender Extremity Common normals: normal to inspection and full ROM Neuro Common normals: oriented x3, CN's II-XII intact bilaterally, moves all extremities, no focal motor deficits and no sensory deficits noted Psych Appearance: grossly normal Course Vital Signs Vital signs: Vital Signs Temperature 97.8 F 05/22/23 18:59 Pulse Rate 68 05/22/23 18:59 Respiratory Rate 16 05/22/23 18:59 Blood Pressure 124/59 05/22/23 18:59 Pulse Oximetry 97 05/22/23 18:59 Oxygen Delivery Method Room Air 05/22/23 18:59 Temperature 97.8 F 05/22/23 18:59 Pulse Rate 55 L 05/22/23 22:32 Respiratory Rate 16 05/22/23 22:32 Blood Pressure 99/63 05/22/23 22:32 Pulse Oximetry 95 05/22/23 22:32 Oxygen Delivery Method Room Air 05/22/23 22:32 Medical Decision Making [facility] Narrative Medical decision making narrative: patient has past history of CAD s/p CABG 3 vessel 14 years ago. presents from home with recurrent episodes of hypotension and tonight he also developed pain of the right arm Serial troponin neg. His BP decreased while here. May have been from morphine but he was only given 2mg. Discussed with the hospitalist and will plan obs admission. He does have CKD but his creat has increased from prior labs Lab Data Labs: Lab Results 05/22/23 05/22/23 Range/Units 19:15 21:20 WBC 10.6 (4.0-11.0) 10^3/uL RBC 4.67 L (4.70-6.10) 10^6/uL Hgb 13.6 L (14.0-18.0) g/dL Hct 41.4 L (42.0-54.0) % MCV 88.7 (80.0-94.0) fL MCH 29.1 (25.9-34.0) pg MCHC 32.9 (29.9-35.2) g/dL RDW 14.4 (11.0-15.0) % Plt Count 210 (150-450) 10^3/uL MPV 10.0 (9.5-13.5) fL Neut % (Auto) 62.7 (43.0-75.0) % Lymph % (Auto) 22.8 (20.5-60.0) % Liberty % (Auto) 10.4 (1.7-12.0) % Eos % (Auto) 3.0 (0.9-7.0) % Baso % (Auto) 0.8 (0.2-2.0) % Neut # (Auto) 6.6 H (1.4-6.5) 10^3/uL Lymph # (Auto) 2.4 (1.2-3.8) 10^3/uL Liberty # (Auto) 1.1 H (0.3-0.8) 10^3/uL Eos # (Auto) 0.3 (0.0-0.7) 10^3/uL Baso # (Auto) 0.1 (0.0-0.1) 10^3/uL Abs Immat Gran (auto) 0.03 (0.00-0.03) 10^3/uL Imm/Tot Granulo (auto) 0.3 (0.0-0.5) % D-Dimer 0.32 (<=0.59) mg/L FEU Sodium 138 (136-145) mmol/L Potassium 4.3 (3.5-5.1) mmol/L Chloride 105 (98-107) mmol/L Carbon Dioxide 23.4 (21.0-32.0) mmol/L Anion Gap 13.9 BUN 33.0 H (7.0-18.0) mg/dL Creatinine 1.56 H (0.70-1.30) mg/dL Est GFR ( Amer) 52 L (>=60) Est GFR (Non-Af Amer) 43 L (>=60) BUN/Creatinine Ratio 21.2 Glucose 169 H (74-106) mg/dL Calcium 8.9 (8.5-10.1) mg/dL Troponin I High Sens 19.2 18.4 (4.0-76.1) pg/mL Discharge Plan Discharge Chief Complaint: Extremity Problem, Nontraumatic Clinical Impression: Acute hypotension, Acute renal disease Patient Disposition: Admitted as Observation
[2023-05-22 19:27] LABS: Basophils Absolute Auto 0.1 10^3/uL (0.0-0.1); Basophils Percent Auto 0.8 % (0.2-2.0); Eosinophils Absolute Auto 0.3 10^3/uL (0.0-0.7); Hematocrit 41.4 % (42.0-54.0); Hemoglobin 13.6 g/dL (14.0-18.0); Immature Granulocytes Abs Auto 0.03 10^3/uL (0.00-0.03); Immature Granulocytes Pct Auto 0.3 % (0.0-0.5); Lymphocytes Absolute Auto 2.4 10^3/uL (1.2-3.8); Lymphocytes Percent Auto 22.8 % (20.5-60.0); Mean Corpuscular HGB Conc 32.9 g/dL (29.9-35.2); Mean Corpuscular Hemoglobin 29.1 pg (25.9-34.0); Mean Corpuscular Volume 88.7 fL (80.0-94.0); Monocytes Absolute Auto 1.1 10^3/uL (0.3-0.8); Monocytes Percent Auto 10.4 % (1.7-12.0); Neutrophils Absolute Auto 6.6 10^3/uL (1.4-6.5); Neutrophils Percent Auto 62.7 % (43.0-75.0); Platelet Count 210 10^3/uL (150-450); Red Blood Count 4.67 10^6/uL (4.70-6.10); Red Cell Distribution Width 14.4 % (11.0-15.0); White Blood Count 10.6 10^3/uL (4.0-11.0)
[2023-05-22 19:42] LABS: D Dimer 0.32 mg/L FEU (<=0.59)
[2023-05-22 19:51] LABS: Anion Gap 13.9; BUN Creatinine Ratio 21.2; Calcium 8.9 mg/dL (8.5-10.1); Carbon Dioxide 23.4 mmol/L (21.0-32.0); Chloride 105 mmol/L (98-107); Estimated GFR (African America 52 (>=60); Estimated GFR (Non-African Ame 43 (>=60); Glucose 169 mg/dL (74-106); Potassium 4.3 mmol/L (3.5-5.1); Sodium 138 mmol/L (136-145); Troponin I High Sensitivity 19.2 pg/mL (4.0-76.1)
[2023-05-22] MEDS: MORPHINE SULFATE 2 MG/ML SYRINGE IV (21:06)
[2023-05-22 21:41] LABS: Troponin I High Sensitivity 18.4 pg/mL (4.0-76.1)
[2023-05-22] MEDS: 0.9 % SODIUM CHLORIDE 1,000 ML 999 ML IV (22:05)
--- OUTSIDE RECORDS SUMMARY | 2023-05-22 23:31 | XMS_ITS | CCD ---
Author Name Unknown Address [facility] [address] [place] [id number] Organization [facility] Care Team Providers Care Wood Gluer Name Role Phone PHYSICIAN, DEFAULT Admitting Unavailable PHYSICIAN, DEFAULT Attending Unavailable SCOTT TAI Primary Care Unavailable VIDAL ODOM Attending Unavailable VIDAL ODOM Admitting Unavailable SCOTT TAI Primary Care Unavailable PADMA PRADO Referring Unavailable [place] Procedure Practitioner UnavailBINDU Greenwood Surgeon Unavailable PAY, [...] Consulting Unavailable Carlton Bravo Consulting Unavailable Driss mSith Unavailable SCOTT TAI Attending Unavailable CANDI QUIROS Attending Unavailable CARLA SESAY Attending Unavailable CELIA DURHAM Attending Unavailable Allergies Allergy Classification Reported Allergen(s) Allergy Type Date of Onset Reaction(s) Facility (1 source) 76839,00 Drug allergy (disorder) 02-21-2010 [facility] Repository Medications Current Medications Medication Drug Class(es) Dates Sig (Normalized) Sig (Original) amylase 512675 unt / lipase 88485 unt / protease 011443 unt delayed release oral capsule (2 sources) Start: 10-02-2021 take 1 capsule by mouth every eight hours Creon 42028-327474 UNIT 1 CAPSULE Orally THREE TIMES A [...] myocardial infarction; 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] Onset: 07-30-2021 [...] Onset: 12-09-2022 Chronic Other aftercare (1 source) 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; 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] Onset: 07-30-2021 Episodic Other aftercare (1 source) Other mcfp (current) drug therapy; Translations: [OTH FPC CURRENT DRUG THERAPY] Onset: 07-30-2021 Episodic Other aftercare (1 source) 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) use of antithrombotics/anti platelets; Translations: [BARREL ASSEMBLER ANTITHROMBOT/ANTIPLA TLETS] Onset: 05-08-2021 Episodic Other liver [...] Range Facility Office Visiton 02-19-2023 Follow-up visit [id number] Thomas Cabellomarcos Mccormick 1940 M Date Provider Department Center 02/19/2023 CARLA LEE [facility] Family History Problem Relation Age of Onset Coronary artery disease Father Hypertension Father Family Status - Relation Status Age at Father Level of Service:74993 [place] OFFICE/OUTPATIENT ESTABLISHED MOD MDM 30-39 MIN Normal [facility] Office Visiton 12-09-2022 Follow-up visit [id number] DestineyRadha Mccormick 1940 M Date Provider Department Center 12/09/2022 CELIA BISHOP [facility] No family history on file Level of Service:04609 [place] OFFICE/OUTPATIENT ESTABLISHED MOD MDM 30-39 MIN Reason for Visit and Comments: Med Refill [296462] Normal [facility] ISTAT XRay CREon 09-20-2021 Creatinine [Mass/Vol] 0.9 mg/dL Normal 0.6-1.3 [facility] Comment on above: Result Comment: ER/E SD physician is notified/shown all ISTAT results. Critical values may be confirmed by laboratory testing if deemed necessary by ER attending doctor. Performed By: #### I SCRE #### [address] Point of Care testing , ISTAT GFR ( > 60 Normal [facility] Comment on above: Result Comment: GFR estimated reference range: According to KDOQI guidelines, <60 ml/min/1.73m2 is sufficient to diagnose a patient with chronic kidney disease. PERFORMED BY: [place] [address] PATHOLOGIST VP [employer] JIANLAN SUN M.D. Performed By: #### I SCRE #### [facility] [address] [place] [address] Point of Care testing , ISTAT GFR (Non- Am > 60 Normal [facility] Comment on above: Performed By: #### I SCRE #### [facility] [address] [place] [address] Point of Care testing , MR abdomen wo/w conon 2021 MR abdomen wo/w con [facility] Main [place] [address] [place] [address] MRI Report Signed Patient: Radha Cabello MR#: [id number] : 1940 Acct:[id number] Age/Sex: 81 / M ADM Date: 09/20/21 Loc: [facility] Room: Type: [facility] Attending Dr: Hasmukh Morelos DO Ordering Provider: [...] Ayala Jr., D.O.09/20/2021 11:13 AM Dictation Location: [place] [address] Transcribed By: [facility] 09/20/21 1113 Dictated By: Layton Ayala Jr, DO 09/20/21 1057 Signed By: 09/20/21 1113 [facility] CULTURE URINEon 07-28-2021 CULTURE URINE [...] Trimethoprim/Sulfame thoxazole <=20 S F Normal [facility] Comment on above: Performed By: #### U RCX ####[facility] [address] [place], [place] [address] ABD/PELV W CONon 07-28-19 [...] ory enterocolitis. Colonic diverticulosis. Electronically authenticated by: ANDRSE GOINS Date: 2021-07-27 12:43 Normal [facility] CBC AUTO DIFFon 07-26-2021 BASO # 0.1 103/ul Normal 0.0-0.1 [facility] Comment on above: Performed By: #### C BC ####[facility] [address] [place] [id number]. Nelson Pollock Basophils/100 WBC (Bld) 0.5 % Normal 0.2-2.0 [facility] Comment on above: Performed By: #### C BC ####[facility] [address] [place] [id number] Pollock EO # 0.2 103/ul Normal 0.0-0.7 [facility] Comment on above: Performed By: #### C BC ####[facility] [address] [place], [place] [address]Dr. Nelson Pollock Eosinophils/100 WBC (Bld) 2.1 % Normal 0.9-7.0 [facility] Comment on above: Performed By: #### C BC ####[facility] [address] [place], [place] [address]Dr. Nelson Pollock Erythrocyte distribution width (RBC) [Ratio] 13.7 % Normal 11.0-15.0 [facility] Comment on above: Performed By: #### C BC ####[facility] [address] [place], [place] [address]Dr. Nelson Pollock Hematocrit (Bld) [Volume fraction] 42.8 % Normal 42.0-54.0 [facility] Comment on above: Performed By: #### C BC ####[facility] [address] [place], [place] [address]Dr. Nelson Pollock Hemoglobin (Bld) [Mass/Vol] 14.5 g/dL Normal 14.0-18.0 [facility] Comment on above: Performed By: #### C BC ####[facility] [address] [place], [place] [address]Dr. Nelson Pollock IG # 0.04 10e3/ul Critically high 0.00-0.03 [facility] Comment on above: Performed By: #### C BC ####[facility] [address] [place], [place] [address]Dr. Nelson Pollock IG % 0.4 % Normal 0.0-0.5 [facility] Comment on above: Performed By: #### C BC ####[facility] [address] [place], [place] [address]Dr. Nelson Pollock LYMPH # 1.7 103/ul Normal 1.2-3.8 [facility] Comment on above: Performed By: #### C BC ####[facility] [address] [place], [place] [address]Dr. Nelson Pollock Lymphocytes/100 WBC (Bld) 15.6 % Critically low 20.5-60.0 [facility] Comment on above: Performed By: #### C BC ####[facility] [address] [place] [id number]. Nelson Pollock MANUAL DIFF REQ NO Normal [facility] Comment on above: Performed By: #### C BC ####[facility] [address] [place] [id number]. Nelson Pollock MCH (RBC) [Entitic mass] 29.2 pg Normal 25.9-34.0 [facility] Comment on above: Performed By: #### C BC ####[facility] [address] [place] [address]Dr. Nelson Pollock MCHC (RBC) [Mass/Vol] 33.9 g/dL Normal 29.9-35.2 [facility] Comment on above: Performed By: #### C BC ####[facility] [address] [place] [address]Dr. Nelson Phill MCV (RBC) [Entitic vol] 86.1 fL Normal 80.0-94.0 [facility] Comment on above: Performed By: #### C BC ####[facility] [address] [place] [id number]. Nelson Phill MONO # 0.8 103/ul Normal 0.3-0.8 [facility] Comment on above: Performed By: #### C BC ####[facility] [address] [place] [address]Dr. Cloverkusum Pollock Monocytes/100 WBC (Bld) 7.3 % Normal 1.7-12.0 [facility] Comment on above: Performed By: #### C BC ####[facility] [address] [place] [id number]. Nelson Pollock NEUT # 8.1 103/ul Critically high 1.4-6.[address] [facility] Comment on above: Performed By: #### C BC ####[facility] [address] [place] [id number]. Nelson Pollock Neutrophils/100 WBC (Bld) 74.1 % Normal 43.0-75.0 [facility] Comment on above: Performed By: #### C BC ####[facility] [address] [place] [address]Dr. Nelson Pollock Platelet mean volume (Bld) [Entitic vol] 10.2 fL Normal 9.5-13.5 [facility] Comment on above: Performed By: #### C BC ####[facility] [address] [place] [address]Dr. Nelson Pollock PLT 191 103/ul Normal 150-450 [facility] Comment on above: Performed By: #### C BC ####[facility] [address] [place] [address]Dr. Nelson Pollock RBC 4.97 106/ul Normal 4.70-6.10 [facility] Comment on above: Performed By: #### C BC ####[facility] [address] [place] [address]Dr. Nelson Pollock WBC 11.0 103/ul Normal 4.0-11.0 [facility] Comment on above: Performed By: #### C BC ####[facility] [address] [place] [address]Dr. Nelson Pollock ER URINE PROFILEon 2 Bilirubin Ql (U) Negative Normal NEGATIVE [facility] Comment on above: Performed By: #### ADT DIALLORO #### [facility] [address] [place] [address] Dr. Nelson Pollock Clarity (U) SL CLOUDY Abnormal CLEAR [facility] Comment on above: Performed By: #### DAT DIALLORO #### [facility] [address] [place] [address] Dr. Nelson Pollock Color (U) LT. YELLOW Normal YELLOW [facility] Comment on above: Performed By: #### DAT DIALLORO #### [facility] [address] [place] [address] Dr. Nelson FELTON A micrscopic examination will be performed if indicated. Normal [facility] Comment on above: Performed By: #### DAT DIALLORO #### [facility] [address] [place] [address] Dr. Nelson Pollock Glucose Ql (U) Negative Normal NEGATIVE [facility] Comment on above: Performed By: #### Anny THOMPSONR, UMICRO #### [facility] [address] [place] [address] Dr. Nelson Pollock Hemoglobin Ql (U) Negative Normal NEGATIVE [facility] Comment on above: Performed By: #### E RUR, UMICRO #### [facility] [address] [place] [address] [address] Nelson Pollock Ketones Ql (U) Negative Normal NEGATIVE [facility] Comment on above: Performed By: #### E RUDuong UMICRO #### [facility] [address] [place] [address] Dr. Nelson Pollock LEUKOCYTES SMALL Abnormal NEGATIVE [facility] Comment on above: Performed By: #### Anny ZAMORA UMICRO #### [facility] [address] [place] [address] Dr. Nelson Pollock Nitrite Ql (U) Negative Normal NEGATIVE [facility] Comment on above: Performed By: #### Anny ZAMORA UMICRO #### [facility] [address] [place] [address] Dr. Nelson Pollock pH (U) 5.0 [pH] Normal 5-9 [facility] Comment on above: Performed By: #### Anny ZAMORA UMICRO #### [facility] [address] [place] [address] Dr. Nelson Pollock SPEC GRAVITY <=1.005 Abnormal 1.005-<=1.025 [facility] Comment on above: Performed By: #### Anny ZAMORA UMICRO #### [facility] [address] [place] [address] Dr. Nelson Pollock UA PROTEIN Negative Normal NEGATIVE/ TRACE [facility] Comment on above: Performed By: #### E SERA, UMICRO #### [facility] [address] [place] [address] Dr. Nelson Pollock UR MICRO IND INDICATED Normal [facility] Comment on above: Performed By: #### Anny ZAMORA UMICRO #### [facility] [address] [place] [address] [address] Nelson Pollock Urobilinogen Qn (U) 0.2 {Christopher'U}/dL Normal 0.2 - 1. 0 [facility] Comment on above: Performed By: #### E LEISA ZAMORA #### [facility] [address] [place] [address] [address] Nelson Pollock LACTATE/LACTIC ACIDon 2021 Lactate [Moles/Vol] 1.2 mmol/L Normal 0.7-2.0 [facility] Comment on above: Performed By: #### L ACT #### [facility] [address] [place] [address] [address] Nelson Pollock LIPASEon 07-26-2021 Lipase [Catalytic activity/Vol] 865.0 U/L Critically high 23.0-300.0 [facility] Comment on above: Performed By: #### L IPA, HSTROPN, CMP ####[facility] [address] [place] [address]Dr. Nelson Pollock PROF 14(COMP METB)on 022 Albumin [Mass/Vol] 4.1 g/dL Normal 3.4-5.0 [facility] Comment on above: Performed By: #### L IPA, HSTROPN, CMP ####[facility] [address] [place] [address]Dr. Nelson Pollock Albumin/Globulin [Mass ratio] 1.2 {ratio} Normal [facility] Comment on above: Performed By: #### L IPA, HSTROPN, CMP ####[facility] [address] [place] [address]Dr. Nelson Pollock ALP [Catalytic activity/Vol] 89 U/L Normal 46-116 [facility] Comment on above: Performed By: #### L IPA, HSTROPN, CMP ####[facility] [address] [place] [address]Dr. Nelson Pollock ALT [Catalytic activity/Vol] 43 U/L Normal 16-63 [facility] Comment on above: Performed By: #### L IPA, HSTROPN, CMP ####[facility] X[address] [place] [address]Dr. Nelson Pollock Anion gap [Moles/Vol] 15.5 mmol/L Normal [facility] Comment on above: Performed By: #### L IPA, HSTROPN, CMP ####[facility] [address] [place] [address]Dr. Nelson Pollock AST [Catalytic activity/Vol] 53 U/L Critically high 15-37 [facility] Comment on above: Performed By: #### L IPA, HSTROPN, CMP ####[facility] [address] [place], [place] [address]Dr. Nelson Pollock Bilirubin [Mass/Vol] 2.4 mg/dL Critically high 0.2-1.3 [facility] Comment on above: Performed By: #### L IPA, HSTROPN, CMP ####[facility] [address] [place], [place] [address]Dr. Nelson Pollock Calcium [Mass/Vol] 8.5 mg/dL Normal 8.5-10.1 [facility] Comment on above: Performed By: #### L IPA, HSTROPN, CMP ####[facility] [address] [place], [place] [address]Dr. Nelson Pollock Chloride [Moles/Vol] 105 mmol/L Normal 98-107 [facility] Comment on above: Performed By: #### L IPA, HSTROPN, CMP ####[facility] [address] [place], [place] [address]Dr. Nelson Pollock CO2 [Moles/Vol] 22.3 mmol/L Normal 22.0-30.0 [facility] Comment on above: Performed By: #### L IPA, HSTROPN, CMP ####[facility] [address] [place], [place] [address]Dr. Nelson Pollock Creatinine [Mass/Vol] 1.06 mg/dL Normal 0.66-1.25 [facility] Comment on above: Performed By: #### L IPA, HSTROPN, CMP ####[facility] [address] [place] [id number]. Nelson Pollock EGFR-AF BURMESE >60 Normal >=60 [facility] Comment on above: Performed By: #### L IPA, HSTROPN, CMP ####[facility] [address] [place] [address]Dr. Nelson Pollock EGFR-NON AF BURMESE >60 Normal >=60 [facility] Comment on above: Performed By: #### L IPA, HSTROPN, CMP ####[facility] [address] [place] [address]Dr. Nelson Pollock Globulin (S) [Mass/Vol] 3.4 g/dL Normal [facility] Comment on above: Performed By: #### L IPA, HSTROPN, CMP ####[facility] [address]xs[address] [place] [address]Dr. Nelosn Pollock Glucose [Mass/Vol] 154 mg/dL Critically high 74-[address] [facility] Comment on above: Performed By: #### L IPA, HSTROPN, CMP ####[facility] [address] [place] [address]Dr. Nelson Pollock Potassium [Moles/Vol] 3.8 mmol/L Normal 3.4-5.0 [facility] Comment on above: Performed By: #### L IPA, HSTROPN, CMP ####[facility] [address] [place] [address]Dr. Nelson Pollock Protein [Mass/Vol] 7.5 g/dL Normal 6.1-8.2 [facility] Comment on above: Performed By: #### L IPA, HSTROPN, CMP ####[facility] [address] [place] [address]Dr. Nelson Pollock Sodium [Moles/Vol] 139 mmol/L Normal 137-145 [facility] Comment on above: Performed By: #### L IPA, HSTROPN, CMP ####[facility] [address] [place] [address]Dr. Nelson Pollock Urea nitrogen [Mass/Vol] 25.0 mg/dL Critically high 7.0-18.0 [facility] Comment on above: Performed By: #### L IPA, HSTROPN, CMP ####[facility] [address] [place] [address]Dr. Nelson Pollock Urea nitrogen/Creatinine [Mass ratio] 23.6 mg/mg Normal [facility] Comment on above: Performed By: #### L IPA, HSTROPN, CMP ####[facility] [address] [place] [address]Dr. Nelson Pollock PROTIMEon 07-26-2021 INR Coag (PPP) [Relative time] 1.07 {INR} Normal [facility] Comment on above: Performed By: #### P TT, PT ####[facility] [address] [place], [place] [address]Dr. Nelson Pollock INR GUIDELINES SEE BELOW Normal [facility] Comment on above: Result Comment: ARTEM RED INR: 2.0 - 3.0 CONDITIONS NOT LISTED BELOW 2.5 - 3.5 FOR PROSTHETIC HEART VALVE REPLACEMENT 2.5 - 3.5 RECURRENT THROMBOSIS Performed By: #### P TT, PT ####[facility] [address] [place], [place] [address]Dr. Nelson Pollock PT Coag (PPP) [Time] 11.5 s Normal 9.0-11.6 [facility] Comment on above: Performed By: #### P TT, PT ####[facility] [address] [place], [place] [address]Dr. Nelson Pollock PTTon 07-26-2021 aPTT Coag (Bld) [Time] 24.9 s Normal 22.3-36.2 [facility] Comment on above: Performed By: #### P TT, PT ####[facility] [address] [place], [place] [address]Dr. Nelson Pollock TROPONIN, HIGH SENSITIVITYon 07-26-2021 HSTROP 38.6 pg/mL Normal 4.0-42.2 [facility] Comment on above: Result Comment: CUT- OFF POINTS HAVE BEEN ESTABLISHED BASED ON THE FOURTH UNIVERSAL DEFINITIONS OF MYOCARDIAL INFARCTION. THE UPPER REFERENCE LIMIT (URL) OF TROPONIN, DEFINED THE 99TH PERCENTILE OF cTnI DISTRIBUTION IN A REFERENCE POPULATION, HAS BEEN CONFIRMED THE DECISION THRESHOLD FOR CO DIAGNOSIS. Performed By: #### L IPA, HSTROPN, CMP ####[facility] [address] [place] [address]Dr. Nelson Pollock URINE MICROSCOPIC ONLYon BACTERIA MODERATE Abnormal NONE SEEN [facility] Comment on above: Performed By: #### E RUR, UMICRO #### [facility] [address] [place] [address] Dr. Nelson Pollock Bacteria identified Cx Nom (U) INDICATED Normal [facility] Comment on above: Performed By: #### E RUR, UMICRO #### [facility] [address] [place] [address] Dr. Nelson Pollock CAST NONE SEEN Normal NONE SEEN [facility] Comment on above: Performed By: #### E DONNAR, UMICRO #### [facility] [address] [place] [address] Dr. Nelson Pollock Crystals LM Nom (Urine sed) NONE SEEN Normal NONE SEEN [facility] Comment on above: Performed By: #### Anny THOMPSONR, UMICRO #### [facility] [address] [place] [address] Dr. Nelson Pollock Epithelial cells LM Ql (Urine sed) RARE Normal NONE SEEN /RARE [facility] Comment on above: Performed By: #### E DONNAR, UMICRO #### [facility] [address] [place] [address] Dr. Nelson Pollock MUCOUS NONE SEEN Normal NONE SEEN [facility] Comment on above: Performed By: #### E RUR, UMICRO #### [facility] [address] [place] [address] Dr. Nelson Pollock RBC 2-5 Abnormal 0-2 [facility] Comment on above: Performed By: #### E RUR, UMICRO #### [facility] [address] [place] [address] Dr. Nelson Pollock WBC (U) [#/Vol] /uL Abnormal NONE SEEN [facility] Comment on above: Performed By: #### E LEISA ZAMORA #### [facility] [address] [place], [place] [address] Dr. Nelson Pollock XR CHEST 1 Von [...] PERNELL SARMIENTO Date: 2021-07-26 16:40 Normal [facility] Basic Metabolic Panelon 05-22 Anion gap [Moles/Vol] 16 mmol/L Normal 12-20 [facility] Comment on above: Result Comment: Effe ctive 04/25/2019 reference range changed. Performed By: #### B MP #### [facility] [address] [place], [place] [id number] Calcium [Mass/Vol] 9.5 mg/dL Normal 8.6-10.2 [facility] Comment on above: Performed By: #### B MP #### [facility] [address] [place], [place] [id number] Chloride [Moles/Vol] 106 mmol/L Normal 98-107 [facility] Comment on above: Performed By: #### B MP #### [facility] [address] [place], [place] [id number] CO2 [Moles/Vol] 24 mmol/L Normal 20-31 [facility] [place] [facility] Comment on above: Performed By: #### B MP #### [facility] [address] [place], [place] [id number] Creatinine [Mass/Vol] 0.9 mg/dL Normal 0.7-1.4 [facility] Comment on above: Performed By: #### B MP #### [facility] [address] [place], [place] [id number] eGFRAA 100 mL/min/1.73m2 Normal >60 [facility] Specialist Comment on above: Performed By: #### B MP #### [facility] [address] [place], [place] [id number] eGFRNAA 83 mL/min/1.73m2 Normal >60 [facility] Comment on above: Performed By: #### B MP #### [facility] [address] [place], [place] [id number] Glucose [Mass/Vol] 85 mg/dL Normal 65-99 [facility] Comment on above: Result Comment: For FASTING Glucose --- ADA reference ranges: Normal 65-99 mg/dl Prediabetes 100-125 Diabetes >/= 126 Performed By: #### B MP #### [facility] [address] [place], [place] [id number] Potassium [Moles/Vol] 4.1 mmol/L Normal 3.5-5.5 [facility] [place] [facility] Comment on above: Performed By: #### B MP #### [facility] [address] [place], [place] [id number] Sodium [Moles/Vol] 142 mmol/L Normal 135-146 [facility] Comment on above: Performed By: #### B MP #### [facility] [address] [place], [place] [id number] Urea nitrogen [Mass/Vol] 16 mg/dL Normal 7-25 [facility] [place] [facility] Comment on above: Performed By: #### B MP #### [facility] [address] [place], [place] [id number] CBC AUTO DIFFon 05-06-2021 BASO # 0.1 103/ul Normal 0.0-0.1 [facility] Comment on above: Performed By: #### C BC #### [facility] [address] [place] [address] [address] Nelson Pollock Basophils/100 WBC (Bld) 0.8 % Normal 0.2-2.0 [facility] Comment on above: Performed By: #### C BC #### [facility] [address] [place] [address] [address] Nelson Pollock EO # 0.3 103/ul Normal 0.0-0.7 [facility] Comment on above: Performed By: #### C BC #### [facility] [address] [place] [address] Dr. Nelson Pollock Eosinophils/100 WBC (Bld) 2.8 % Normal 0.9-7.0 [facility] Comment on above: Performed By: #### C BC #### [facility] [address] [place] [address] Dr. Nelson Pollock Erythrocyte distribution width (RBC) [Ratio] 13.2 % Normal 11.0-15.0 [facility] Comment on above: Performed By: #### C BC #### [facility] [address] [place] [address] Dr. Nelson Pollock Hematocrit (Bld) [Volume fraction] 45.8 % Normal 42.0-54.0 [facility] Comment on above: Performed By: #### C BC #### [facility] [address] [place] [address] Dr. Nelson Pollock Hemoglobin (Bld) [Mass/Vol] 15.6 g/dL Normal 14.0-18.0 [facility] Comment on above: Performed By: #### C BC #### [facility] [address] [place] [address] Dr. Nelson Pollock IG # 0.04 10e3/ul Critically high 0.00-0.03 [facility] Comment on above: Performed By: #### C BC #### [facility] [address] [place] [address] Dr. Nelson Pollock IG % 0.4 % Normal 0.0-0.5 [facility] Comment on above: Performed By: #### C BC #### [facility] [address] [place] [address] Dr. Nelson Pollock LYMPH # 3.1 103/ul Normal 1.2-3.8 [facility] Comment on above: Performed By: #### C BC #### [facility] [address] [place] [address] Dr. Nelson Pollock Lymphocytes/100 WBC (Bld) 27.2 % Normal 20.5-60.0 [facility] Comment on above: Performed By: #### C BC #### [facility] [address] [place] [address] Dr. Nelson Pollock MANUAL DIFF REQ NO Normal [facility] Comment on above: Performed By: #### C BC #### [facility] [address] [place] [address] Dr. Nelson Pollock MCH (RBC) [Entitic mass] 29.1 pg Normal 25.9-34.0 [facility] Comment on above: Performed By: #### C BC #### [facility] [address] [place] [address] Dr. Nelson Pollock MCHC (RBC) [Mass/Vol] 34.1 g/dL Normal 29.9-35.2 [facility] Comment on above: Performed By: #### C BC #### [facility] [address] [place] [address] Dr. Nelson Pollock MCV (RBC) [Entitic vol] 85.3 fL Normal 80.0-94.0 [facility] Comment on above: Performed By: #### C BC #### [facility] [address] [place] [address] Dr. Nelson Pollock MONO # 1.0 103/ul Critically high 0.3-0.[address] [facility] Comment on above: Performed By: #### C BC #### [facility] [address] [place] [address] Dr. Nelson Pollock Monocytes/100 WBC (Bld) 9.0 % Normal 1.7-12.0 [facility] Comment on above: Performed By: #### C BC #### [facility] [address] [place] [address] Dr. Nelson Pollock NEUT # 6.8 103/ul Critically high 1.4-6.[address] [facility] Comment on above: Performed By: #### C BC #### [facility] [address] [place] [address] Dr. Nelson Pollock Neutrophils/100 WBC (Bld) 59.8 % Normal 43.0-75.0 [facility] Comment on above: Performed By: #### C BC #### [facility] [address] [address] [address] Nelson Pollock Platelet mean volume (Bld) [Entitic vol] 10.3 fL Normal 9.5-13.5 [facility] Comment on above: Performed By: #### C BC #### [facility] [address] [address] [address] Nelson Pollock PLT 196 103/ul Normal 150-450 [facility] Comment on above: Performed By: #### C BC #### [facility] [address] [address] [address] Nelson Pollock RBC 5.37 106/ul Normal 4.70-6.10 [facility] Comment on above: Performed By: #### C BC #### [facility] [address] [address] [address] Nelson Pollock WBC 11.3 103/ul Critically high 4.0-11.0 [facility] Comment on above: Performed By: #### C BC #### [facility] [address] [address] [address] Nelson Pollock PROF CHEM 8 (BAS METB)on Anion gap [Moles/Vol] 10.8 mmol/L Normal [facility] Comment on above: Performed By: #### B JOVANI HSTROPN ####[facility] [address] [place] [address]DrErika Pollock Calcium [Mass/Vol] 8.8 mg/dL Normal 8.4-10.2 [facility] Comment on above: Performed By: #### B JOVANI HSTROPN ####[facility] [address] [place] [address]DrErika Pollock Chloride [Moles/Vol] 104 mmol/L Normal 98-107 [facility] Comment on above: Performed By: #### B JOVANI HSTROPN ####[facility] [address] [place] [address]DrErika Pollock CO2 [Moles/Vol] 26.7 mmol/L Normal 22.0-30.0 [facility] Comment on above: Performed By: #### B MP, HSTROPN ####[facility] [address] [place] [id number]. Nelson Pollock Creatinine [Mass/Vol] 0.95 mg/dL Normal 0.66-1.25 [facility] Comment on above: Performed By: #### B JOVANI, HSTROPN ####[facility] [address] [place] [id number]. Nelson Pollock EGFR-AF BURMESE >60 Normal >=60 [facility] Comment on above: Performed By: #### B JOVANI, HSTROPN ####[facility] [address] [place] [id number]. Nelson Pollock EGFR-NON AF BURMESE >60 Normal >=60 [facility] Comment on above: Performed By: #### B JOVANI, HSTROPN ####[facility] [address] [place] [address]Dr. Nelson Pollock Glucose [Mass/Vol] 121 mg/dL Critically high 74-[address] [facility] Comment on above: Performed By: #### B JOVANI, HSTROPN ####[facility] [address] [place] [id number]. Nelson Pollock Potassium [Moles/Vol] 3.5 mmol/L Normal 3.4-5.0 [facility] Comment on above: Performed By: #### B JOVANI, HSTROPN ####[facility] [address] [place] [address]Dr. Nelson Pollock Sodium [Moles/Vol] 138 mmol/L Normal 137-145 [facility] Comment on above: Performed By: #### B JOVANI, HSTROPN ####[facility] [address] [place] [id number]. Nelson Pollock Urea nitrogen [Mass/Vol] 12.0 mg/dL Normal 9.0-20.0 [facility] Comment on above: Performed By: #### B JOVANI, HSTROPN ####[facility] [address] [place] [address]Dr. Nelson Pollock Urea nitrogen/Creatinine [Mass ratio] 12.6 mg/mg Normal [facility] Comment on above: Performed By: #### B JOVANI HSTROPN ####[facility] [address] [place], [place] [address]EiDr. Nelson Pollock TROPONIN, HIGH SENSITIVITYon 05-06-2021 HSTROP 41.0 pg/mL Normal 4.0-42.2 [facility] Comment on above: Result Comment: CUT- OFF POINTS HAVE BEEN ESTABLISHED BASED ON THE FOURTH UNIVERSAL DEFINITIONS OF MYOCARDIAL INFARCTION. THE UPPER REFERENCE LIMIT (URL) OF TROPONIN, DEFINED THE 99TH PERCENTILE OF cTnI DISTRIBUTION IN A REFERENCE POPULATION, HAS BEEN CONFIRMED THE DECISION THRESHOLD FOR CO DIAGNOSIS. Performed By: #### B JOVANI HSTROPN ####[facility] [address] [place], [place] [address]ZvDr. Nelson Pollock XR CHEST 1 Von 05-06-2021 [...] CARLTON BRAVO Date: 2021-05-06 20:10 Normal [facility] BNPon 01-06-2021 Natriuretic peptide B (Bld) [Mass/Vol] 268.0 pg/mL Normal <=1,800.0 [facility] Comment on above: Performed By: #### B CERTIFIED PERSONAL CHEF #### [facility] [address] [place], [place] [address] Dr. Nelson Pollock CBC AUTO DIFFon 01-06-2021 BASO # 0.1 103/ul Normal 0.0-0.1 [facility] Comment on above: Performed By: #### C BC #### [facility] [address] [place], [place] [address] Dr. Nelson Pollock Basophils/100 WBC (Bld) 0.6 % Normal 0.2-2.0 [facility] Comment on above: Performed By: #### C BC #### [facility] [address] [place] [address] Dr. Nelson Pollock EO # 0.2 103/ul Normal 0.0-0.7 [facility] Comment on above: Performed By: #### C BC #### [facility] [address] [place] [address] Dr. Nelson Pollock Eosinophils/100 WBC (Bld) 1.6 % Normal 0.9-7.0 [facility] Comment on above: Performed By: #### C BC #### [facility] [address] [place] [address] Dr. Nelson Pollock Erythrocyte distribution width (RBC) [Ratio] 13.9 % Normal 11.0-15.0 [facility] Comment on above: Performed By: #### C BC #### [facility] [address] [place] [address] Dr. Nelson Pollock Hematocrit (Bld) [Volume fraction] 46.4 % Normal 42.0-54.0 [facility] Comment on above: Performed By: #### C BC #### [facility] [address] [place] [address] Dr. Nelson Pollock Hemoglobin (Bld) [Mass/Vol] 15.5 g/dL Normal 14.0-18.0 [facility] Comment on above: Performed By: #### C BC #### [facility] [address] [place] [address] Dr. Nelson Pollock IG # 0.04 10e3/ul Critically high 0.00-0.03 [facility] Comment on above: Performed By: #### C BC #### [facility] [address] [place] [address] Dr. Nelson Pollock IG % 0.4 % Normal 0.0-0.5 [facility] Comment on above: Performed By: #### C BC #### [facility] [address] [place] [address] Dr. Nelson Pollock LYMPH # 2.3 103/ul Normal 1.2-3.8 [facility] Comment on above: Performed By: #### C BC #### [facility] [address] [place] [address] Dr. Nelson Pollock Lymphocytes/100 WBC (Bld) 22.8 % Normal 20.5-60.0 [facility] Comment on above: Performed By: #### C BC #### [facility] [address] [place] [address] Dr. Nelson Pollock MANUAL DIFF REQ NO Normal [facility] Comment on above: Performed By: #### C BC #### [facility] [address] [place] [address] Dr. Nelson Pollock MCH (RBC) [Entitic mass] 28.3 pg Normal 25.9-34.0 [facility] Comment on above: Performed By: #### C BC #### [facility] [address] [place] [address] Dr. Nelson Pollock MCHC (RBC) [Mass/Vol] 33.4 g/dL Normal 29.9-35.2 [facility] Comment on above: Performed By: #### C BC #### [facility] [address] [place] [address] Dr. Nelson Pollock MCV (RBC) [Entitic vol] 84.7 fL Normal 80.0-94.0 [facility] Comment on above: Performed By: #### C BC #### [facility] [address] [place] [address] Dr. Nelson Pollock MONO # 0.8 103/ul Normal 0.3-0.8 [facility] Comment on above: Performed By: #### C BC #### [facility] [address] [place] [address] Dr. Nelson Pollock Monocytes/100 WBC (Bld) 8.0 % Normal 1.7-12.0 [facility] Comment on above: Performed By: #### C BC #### [facility] [address] [place] [address] Dr. Nelson Pollock NEUT # 6.8 103/ul Critically high 1.4-6.5 [facility] Comment on above: Performed By: #### C BC #### [facility] [address] [address] [address] Nelson Pollock Neutrophils/100 WBC (Bld) 66.6 % Normal 43.0-75.0 [facility] Comment on above: Performed By: #### C BC #### [facility] [address] [address] [address] Nelson Pollock Platelet mean volume (Bld) [Entitic vol] 10.6 fL Normal 9.5-13.5 [facility] Comment on above: Performed By: #### C BC #### [facility] [address] [address] [address] Nelson Pollock PLT 201 103/ul Normal 150-450 [facility] Comment on above: Performed By: #### C BC #### [facility] [address] [place] [address] Dr. Nelson Pollock RBC 5.48 106/ul Normal 4.70-6.10 [facility] Comment on above: Performed By: #### C BC #### [facility] [address] [place] [address] Dr. Nelson Pollock WBC 10.2 103/ul Normal 4.0-11.0 [facility] Comment on above: Performed By: #### C BC #### [facility] [address] [place] [address] Dr. Nelson Pollock PROF 14(COMP METB)on 021 Albumin [Mass/Vol] 3.8 g/dL Normal 3.5-5.0 [facility] Comment on above: Performed By: #### C JOVANI HSTROPN #### [facility] [address] [address] [address] Nelson Pollock Albumin/Globulin [Mass ratio] 1.2 {ratio} Normal [facility] Comment on above: Performed By: #### C JOVANI HSTROPN #### [facility] [address] [place] [address] Dr. Nelson Pollock ALP [Catalytic activity/Vol] 73 U/L Normal 38-126 [facility] Comment on above: Performed By: #### C MP, HSTROPN #### [facility] [address] [address] [address] Nelson Pollock ALT [Catalytic activity/Vol] 20 U/L Critically low 21-72 [facility] Comment on above: Performed By: #### C MP, HSTROPN #### [facility] [address] [address] [address] Nelson Pollock Anion gap [Moles/Vol] 11.0 mmol/L Normal [facility] Comment on above: Performed By: #### C MP, HSTROPN #### [facility] [address] [address] [address] Nelson Pollock AST [Catalytic activity/Vol] 18 U/L Normal 17-59 [facility] Comment on above: Performed By: #### C MP, HSTROPN #### [facility] [address] [place] [address] Dr. Nelson Pollock Bilirubin [Mass/Vol] 1.7 mg/dL Critically high 0.2-1.3 [facility] Comment on above: Performed By: #### C MP, HSTROPN #### [facility] [address] [place] [address] Dr. Nelson Pollock Calcium [Mass/Vol] 8.9 mg/dL Normal 8.4-10.2 [facility] Comment on above: Performed By: #### C MP, HSTROPN #### [facility] [address] [address] [address] Nelson Pollock Chloride [Moles/Vol] 105 mmol/L Normal 98-107 [facility] Comment on above: Performed By: #### C MP, HSTROPN #### [facility] [address] [place] [address] Dr. Nelson Pollock CO2 [Moles/Vol] 26.5 mmol/L Normal 22.0-30.0 [facility] Comment on above: Performed By: #### C MP, HSTROPN #### [facility] [address] [place] [address] Dr. Nelson Pollock Creatinine [Mass/Vol] 0.82 mg/dL Normal 0.66-1.25 [facility] Comment on above: Performed By: #### C JOVANI, HSTROPN #### [facility] [address] [address] [address] Nelson Pollock EGFR-AF BURMESE >60 Normal >=60 [facility] Comment on above: Performed By: #### C MP, HSTROPN #### [facility] [address] [place] [address] [address] Nelson Pollock EGFR-NON AF BURMESE >60 Normal >=60 [facility] Comment on above: Performed By: #### C JOVANI, HSTROPN #### [facility] [address] [place] [address] Dr. Nelson Pollock Globulin (S) [Mass/Vol] 3.3 g/dL Normal [facility] Comment on above: Performed By: #### C JOVANI, HSTROPN #### [facility] [address] [address] [address] Nelson Pollock Glucose [Mass/Vol] 87 mg/dL Normal 74-106 [facility] Comment on above: Performed By: #### C JOVANI, HSTROPN #### [facility] [address] [address] [address] Nelson Pollock Potassium [Moles/Vol] 3.5 mmol/L Normal 3.4-5.0 [facility] Comment on above: Performed By: #### C JOVANI, HSTROPN #### [facility] [address] [place] [address] Dr. Nelson Pollock Protein [Mass/Vol] 7.1 g/dL Normal 6.1-8.2 [facility] Comment on above: Performed By: #### C MP, HSTROPN #### [facility] [address] [place] [address] Dr. Nelson Pollock Sodium [Moles/Vol] 139 mmol/L Normal 137-145 [facility] Comment on above: Performed By: #### C MP, HSTROPN #### [facility] [address] [place], [place] [address] Dr. Nelson Pollock Urea nitrogen [Mass/Vol] 13.0 mg/dL Normal 9.0-20.0 [facility] Comment on above: Performed By: #### C JOVANI, HSTROPN #### [facility] [address] [place], [place] [address] Dr. Nelson Pollock Urea nitrogen/Creatinine [Mass ratio] 15.9 mg/mg Normal [facility] Comment on above: Performed By: #### C MP, HSTROPN #### [facility] [address] [place], [place] [address] Dr. Nelson Pollock TROPONIN, HIGH SENSITIVITYon 01-06-2021 HSTROP 43.4 pg/mL Critically high 4.0-42.2 [facility] Comment on above: Result Comment: CUT- OFF POINTS HAVE BEEN ESTABLISHED BASED ON THE FOURTH UNIVERSAL DEFINITIONS OF MYOCARDIAL INFARCTION. THE UPPER REFERENCE LIMIT (URL) OF TROPONIN, DEFINED THE 99TH PERCENTILE OF cTnI DISTRIBUTION IN A REFERENCE POPULATION, HAS BEEN CONFIRMED THE DECISION THRESHOLD FOR CO DIAGNOSIS. Performed By: #### C JOVANI, HSTROPN #### [facility] [address] [address] [address] Nelson Pollock XR CHEST 1 Von [...] JASKARAN CARRERA Date: 2021-01-06 11:24 Normal [facility] BASIC METABOLIC PANELon - Calcium [Mass/Vol] 8.5 mg/dL Low 8.6-10.3 [facility] Comment on above: Order Comment: No: D o not add to previous draw Performed By: #### 0 0071, [id number] #### [facility] [address] [place] [address], [facility] Chloride [Moles/Vol] 108 mmol/L High 98-107 [facility] Comment on above: Order Comment: No: D o not add to previous draw Performed By: #### 0 0071, [id number] #### [facility] [address] [place] [address], [place] CO2 [Moles/Vol] 27 mmol/L Normal 21-31 [facility] Comment on above: Order Comment: No: D o not add to previous draw Performed By: #### 0 0071, [id number] #### [facility] [address] [place] [address], [facility] Creatinine [Mass/Vol] 0.89 mg/dL Normal 0.70-1.30 [facility] Comment on above: Order Comment: No: D o not add to previous draw Performed By: #### 0 0071, [id number] #### [facility] [address] [place] [address], [place] GFR/1.73 sq M predicted among blacks MDRD (S/P/Bld) [Vol rate/Area] mL/min/{1.73_m2} Normal >60 [facility] Comment on above: Order Comment: No: D o not add to previous draw Result Comment: Calc ulation may not be valid for patients over 70 years Performed By: #### 0 0071, [id number] #### [facility] [address] [place] [address], [place] GFR/1.73 sq M predicted among non-blacks MDRD (S/P/Bld) [Vol rate/Area] mL/min/{1.73_m2} Normal >60 [facility] Comment on above: Order Comment: No: D o not add to previous draw Result Comment: Calc ulation may not be valid for patients over 70 years Performed By: #### 0 0071, [id number] #### [facility] [address] [place] [address], [place] Glucose [Mass/Vol] 78 mg/dL Normal 70-100 [facility] Comment on above: Order Comment: No: D o not add to previous draw Performed By: #### 0 0071, [id number] #### [facility] [address] [place] [address], [place] Potassium [Moles/Vol] 4.0 mmol/L Normal 3.5-5.1 [facility] Comment on above: Order Comment: No: D o not add to previous draw Performed By: #### 0 0071, [id number] #### [facility] [address] [place] [address], [place] Sodium [Moles/Vol] 144 mmol/L Normal 136-145 [facility] [place] Comment on above: Order Comment: No: D o not add to previous draw Performed By: #### 0 0071, 76628 #### [facility] [address] [place] [address], [place] Urea nitrogen [Mass/Vol] 21 mg/dL Normal 7-25 [facility] Comment on above: Order Comment: No: D o not add to previous draw Performed By: #### 0 0071, [id number] #### [facility] [address] [place] [address], [place] Calcium [Mass/Vol] 8.3 mg/dL Low 8.6-10.3 [facility] [place] Comment on above: Performed By: #### 0 0071, 05555, 07113 #### [facility] [address] [place] [address], [place] Chloride [Moles/Vol] 108 mmol/L High 98-107 [facility] Comment on above: Performed By: #### 0 0071, 01507, 20079 #### [facility] [address] [place] [address], [place] CO2 [Moles/Vol] 24 mmol/L Normal 21-31 [facility] Comment on above: Performed By: #### 0 0071, 45050, 67433 #### [facility] [address] [place] [address], [facility] Creatinine [Mass/Vol] 0.90 mg/dL Normal 0.70-1.30 [facility] Comment on above: Performed By: #### 0 0071, 80062, 25949 #### [facility] [address] [place] [address], [facility] GFR/1.73 sq M predicted among blacks MDRD (S/P/Bld) [Vol rate/Area] mL/min/{1.73_m2} Normal >60 [facility] Comment on above: Result Comment: Calc ulation may not be valid for patients over 70 years Performed By: #### 0 0071, 67019, 88858 #### [facility] [address] [place] [address], [place] GFR/1.73 sq M predicted among non-blacks MDRD (S/P/Bld) [Vol rate/Area] mL/min/{1.73_m2} Normal >60 [facility] Comment on above: Result Comment: Calc ulation may not be valid for patients over 70 years Performed By: #### 0 0071, 61687, 80282 #### [facility] [address] [place] [address], [place] Glucose [Mass/Vol] 101 mg/dL High 70-100 [facility] Comment on above: Performed By: #### 0 0071, 14967, 27504 #### [facility] [address] [place] [address], [place] Potassium [Moles/Vol] 3.5 mmol/L Normal 3.5-5.1 [facility] Comment on above: Performed By: #### 0 0071, 57147, 11106 #### [facility] [address] [place] [id number], [facility] Sodium [Moles/Vol] 141 mmol/L Normal 136-145 [facility] Comment on above: Performed By: #### 0 0071, 03497, 65813 #### [facility] [address] [place] [address], [place] Urea nitrogen [Mass/Vol] 24 mg/dL Normal 7-25 [facility] Comment on above: Performed By: #### 0 0071, 72603, 42820 #### [facility] [address] [place] [address], [facility] CBC COMPLETE BLOOD COUNTon 0 - Erythrocyte distribution width (RBC) [Ratio] 13.8 % Normal 11.5-15.0 [facility] Comment on above: Order Comment: No: D o not add to previous draw Performed By: #### 5 [id number] #### [facility] [address] [place] [address], [facility] Hematocrit (Bld) [Volume fraction] 37.7 % Low 39.0-50.0 [facility] Comment on above: Order Comment: No: D o not add to previous draw Performed By: #### 5 0608 #### [facility] [facility] [address] [place] [address], [facility] Hemoglobin (Bld) [Mass/Vol] 12.9 g/dL Low 13.0-17.0 [facility] Comment on above: Order Comment: No: D o not add to previous draw Performed By: #### 5 [id number] #### [facility] [address] [place] [address], [place] MCH (RBC) [Entitic mass] 29.1 pg Normal 27.0-33.0 [facility] Comment on above: Order Comment: No: D o not add to previous draw Performed By: #### 5 [id number] #### [facility] [address] [place] [address], [place] MCHC (RBC) [Mass/Vol] 34.2 g/dL Normal 32.0-35.0 [facility] Comment on above: Order Comment: No: D o not add to previous draw Performed By: #### 5 [id number] #### [facility] [address] [place] [address], [facility] MCV (RBC) [Entitic vol] 85.1 fL Normal 82.0-98.0 [facility] Comment on above: Order Comment: No: D o not add to previous draw Performed By: #### 5 [id number] #### [facility] [address] [place] [address], [facility] Nucleated RBC/100 WBC (Bld) [Ratio] 0 % Normal 0-0 [facility] Comment on above: Order Comment: No: D o not add to previous draw Performed By: #### 5 [id number] #### [facility] [address] [facility] [place] [address], [facility] PLAT CNT 198 10*3/uL Normal 150-400 [facility] Comment on above: Order Comment: No: D o not add to previous draw Performed By: #### 5 [id number] #### [facility] [address] [place] [address], [facility] RBC (Bld) [#/Vol] 4.43 10*6/uL Normal 4.20-5.70 [facility] Comment on above: Order Comment: No: D o not add to previous draw Performed By: #### 5 [id number] #### [facility] [address] [place] [id number], [facility] WBC (Bld) [#/Vol] 10.40 10*3/uL Normal 4.00-10.60 [facility] Comment on above: Order Comment: No: D o not add to previous draw Performed By: #### 5 [id number] #### [facility] [address] [place] [address], [facility] LIPID PROFILEon 07-02-2020 Cholesterol [Mass/Vol] 119 mg/dL Low 120-200 [facility] Comment on above: Result Comment: CHOL ESTEROL REFERENCE RANGE: 20 YEARS AND OLDER CARDIOVASCULAR RISK Less than 200 mg/dl Low Risk 200 to 239 mg/dl Borderline Risk 240 mg/dl and greater High Risk Performed By: #### 0 0071, [id number], 72936 #### [facility] [address] [place] [address], [place] Cholesterol in HDL [Mass/Vol] 37 mg/dL Normal 23-92 [facility] Comment on above: Result Comment: Slig ht variation in normal range could be due to gender and/or age. HDL CHOLESTEROL REFERENCE RANGE: 20 years and older Cardiovascular Risk > or =60 mg/dL Desirable 40 TO 59 mg/dL Low Risk <40 mg/dL High Risk Performed By: #### 0 0071, 74040, 70414 #### [facility] [address] [place] [address], [place] Cholesterol in LDL [Mass/Vol] 68 mg/dL Normal 0-130 [facility] Comment on above: Result Comment: LDL IS A CALCULATION LDL IS ONLY VALID IF THE TRIG IS LESS THAN 400. Performed By: #### 0 0071, [id number], [id number] #### [facility] [address] [place] [address], [place] Cholesterol.total/Ch olesterol in HDL [Mass ratio] 3.2 {ratio} Normal 0.0-4.5 [facility] Comment on above: Performed By: #### 0 0071, 04016, [id number] #### [facility] [address] [place] [address], [place] NON-HDL CHOLESTEROL 82 mg/dL Normal [facility] Comment on above: Performed By: #### 0 0071, 72872, 31803 #### [facility] [address] [place] [address], [place] Triglyceride [Mass/Vol] 71 mg/dL Normal 40-149 [facility] Comment on above: Result Comment: TRIG LYCERIDE REFERENCE RANGE: 20 YEARS AND OLDER CARDIOVASCULAR RISK LESS THAN 150 mg/dl LOW RISK 150 TO 199 mg/dl BORDERLINE RISK 200 mg/dl AND GREATER HIGH RISK Performed By: #### 0 0071, 01684, 95333 #### [facility] [address] [place] [address], [facility] VLDL CHOL 14 mg/dL Normal 0-40 [facility] Comment on above: Performed By: #### 0 0071, 63702, 51779 #### [facility] [address] [place] [address], [facility] MAGNESIUM BLOODon 07-02-2020 Magnesium [Mass/Vol] 1.5 mg/dL Low 1.9-2.7 [facility] Comment on above: Order Comment: No: D o not add to previous draw Performed By: #### 0 0071, 67774 #### [facility] [address] [place] [address], [facility] Magnesium [Mass/Vol] 1.3 mg/dL Low 1.9-2.7 [facility] Comment on above: Performed By: #### 1 0070, 01934 #### [facility] [address] [place] [address], [facility] TROPONIN-Ion 07-02-2020 Troponin I.cardiac [Mass/Vol] 0.03 ng/mL Normal 0.00-0.04 [facility] Comment on above: Order Comment: No: D o not add to previous draw Result Comment: REFE RENCE RANGES: 0.00 - 0.04 ng/ml NORMAL 0.05 - 0.50 ng/ml INDETERMINATE > 0.50 ng/ml CONSISTENT WITH AN M.I. Performed By: #### 0 0071, 33577, 61887 #### [facility] [address] [place] [address], [facility] Troponin I.cardiac [Mass/Vol] 0.03 ng/mL Normal 0.00-0.04 [facility] Comment on above: Order Comment: No: D o not add to previous draw Result Comment: REFE RENCE RANGES: 0.00 - 0.04 ng/ml NORMAL 0.05 - 0.50 ng/ml INDETERMINATE > 0.50 ng/ml CONSISTENT WITH AN M.I. Performed By: #### 1 0070, [id number] #### [facility] [address] [place] [address], [facility] UFH HEPARIN ASSAYon 07-03-19 UNFRACTIONATED HEPARIN 0.63 IU/mL Normal 0.30-0.70 [facility] Comment on above: Result Comment: [place] roxaban and Apixaban will interfere with the anti Xa assay used to monitor UFH and LMWH. Performed By: #### 5 0608 #### [facility] [address] UNFRACTIONATED HEPARIN 0.48 IU/mL Normal 0.30-0.70 [facility] Comment on above: Order Comment: No: D o not add to previous draw Result Comment: [place] roxaban and Apixaban will interfere with the anti Xa assay used to monitor UFH and LMWH. Performed By: #### 5 0608 #### [facility] [address] [place] [address], [facility] UNFRACTIONATED HEPARIN 0.34 IU/mL Normal 0.30-0.70 [facility] Comment on above: Result Comment: [place] roxaban and Apixaban will interfere with the anti Xa assay used to monitor UFH and LMWH. Performed By: #### 5 0608 #### [facility] [address] [place] [address], [facility] APTTon 07-01-2020 aPTT Coag (Bld) [Time] 39.8 s High 25.0-35.0 [facility] Comment on above: Order Comment: No: [...] PURPOSE. Performed By: #### 5 0608 #### [facility] [address] [place] [address], [facility] BASIC METABOLIC PANELon 03- Calcium [Mass/Vol] 8.6 mg/dL Normal 8.6-10.3 [facility] Comment on above: Order Comment: No: D o not add to previous draw Performed By: #### 5 0608 #### [facility] [address] [place] [address], [facility] Chloride [Moles/Vol] 104 mmol/L Normal 98-107 [facility] Comment on above: Order Comment: No: D o not add to previous draw Performed By: #### 5 0608 #### [facility] [address] [place] [address], [facility] CO2 [Moles/Vol] 27 mmol/L Normal 21-31 [facility] Comment on above: Order Comment: No: D o not add to previous draw Performed By: #### 5 0608 #### [facility] [address] [place] [id number], [facility] Creatinine [Mass/Vol] 0.99 mg/dL Normal 0.70-1.30 [facility] Comment on above: Order Comment: No: D o not add to previous draw Performed By: #### 5 0608 #### [facility] [address] [place] [address], [facility] GFR/1.73 sq M predicted among blacks MDRD (S/P/Bld) [Vol rate/Area] mL/min/{1.73_m2} Normal >60 [facility] Comment on above: Order Comment: No: D o not add to previous draw Result Comment: Calc ulation may not be valid for patients over 70 years Performed By: #### 5 0608 #### [facility] [address] [place] [address], [facility] GFR/1.73 sq M predicted among non-blacks MDRD (S/P/Bld) [Vol rate/Area] mL/min/{1.73_m2} Normal >60 [facility] Comment on above: Order Comment: No: D o not add to previous draw Result Comment: Calc ulation may not be valid for patients over 70 years Performed By: #### 5 0608 #### [facility] [address] [place] [address], [facility] Glucose [Mass/Vol] 126 mg/dL High 70-100 [facility]: Order Comment: No: D o not add to previous draw Performed By: #### 5 0608 #### [facility] [address] [place] [address], [facility] Potassium [Moles/Vol] 2.9 mmol/L Low 3.5-5.1 [facility] Comment on above: Order Comment: No: D o not add to previous draw Performed By: #### 5 0608 #### [facility] [address] [place] [address], [facility] Sodium [Moles/Vol] 141 mmol/L Normal 136-145 The [facility] Comment on above: Order Comment: No: D o not add to previous draw Performed By: #### 5 0608 #### [facility] [address] [place] [address], [facility] Urea nitrogen [Mass/Vol] 25 mg/dL Normal 7-25 [facility] Comment on above: Order Comment: No: D o not add to previous draw Performed By: #### 5 0608 #### [facility] [address] [place] [address], [facility] CBC COMPLETE BLOOD COUNTon 0 3- Erythrocyte distribution width (RBC) [Ratio] 13.7 % Normal 11.5-15.0 [facility] Comment on above: Order Comment: No: D o not add to previous draw Performed By: #### 5 0608 #### [facility] [address] [place] [address], [facility] Hematocrit (Bld) [Volume fraction] 39.8 % Normal 39.0-50.0 [facility] Comment on above: Order Comment: No: D o not add to previous draw Performed By: #### 5 0608 #### [facility] [address] [place] [address], [facility] Hemoglobin (Bld) [Mass/Vol] 13.7 g/dL Normal 13.0-17.0 [facility] Comment on above: Order Comment: No: D o not add to previous draw Performed By: #### 5 0608 #### [facility] [address] [place] [address], [facility] MCH (RBC) [Entitic mass] 28.7 pg Normal 27.0-33.0 [facility] Comment on above: Order Comment: No: D o not add to previous draw Performed By: #### 5 0608 #### [facility] [address] [facility] MCHC (RBC) [Mass/Vol] 34.4 g/dL Normal 32.0-35.0 [facility] Comment on above: Order Comment: No: D o not add to previous draw Performed By: #### 5 0608 #### [facility] [address] [place] [address], [facility] MCV (RBC) [Entitic vol] 83.3 fL Normal 82.0-98.0 [facility] Comment on above: Order Comment: No: D o not add to previous draw Performed By: #### 5 0608 #### [facility] [address] [place] [address], [facility] Nucleated RBC/100 WBC (Bld) [Ratio] 0 % Normal 0-0 [facility] Comment on above: Order Comment: No: D o not add to previous draw Performed By: #### 5 0608 #### [facility] [address] [place] [address], [facility] PLAT CNT 184 10*3/uL Normal 150-400 [facility] Comment on above: Order Comment: No: D o not add to previous draw Performed By: #### 5 0608 #### [facility] [address] [place] [address], [facility] RBC (Bld) [#/Vol] 4.78 10*6/uL Normal 4.20-5.70 [facility] Comment on above: Order Comment: No: D o not add to previous draw Performed By: #### 5 0608 #### [facility] [address] [place] [address], [facility] WBC (Bld) [#/Vol] 9.34 10*3/uL Normal 4.00-10.60 [facility] Comment on above: Order Comment: No: D o not add to previous draw Performed By: #### 5 0608 #### [facility] [address] PROTHROMBIN TIMEon 1 INR Coag (PPP) [Relative time] 1.12 {INR} Normal 0.91-1.16 [facility] Comment on above: Order Comment: [...] 1995;108:231S-246S. Performed By: #### 5 0608 #### [facility] [address] [place] [employer] [address] PT Coag (PPP) [Time] 14.4 s Normal 12.3-14.8 [facility] Comment on above: Order Comment: No: D o not add to previous draw Result Comment: ALL RESULTS MUST BE INTERPRETED WITH RESPECT TO BLOOD DRAWING ARTIFACT OR DILUTION ERROR OF ANTICOAGULANT AT THE TIME OF SAMPLING. Performed By: #### 5 0608 #### [facility] [address] [facility]. [address] TROPONIN-Ion 07-01-2020 Troponin I.cardiac [Mass/Vol] 0.02 ng/mL Normal 0.00-0.04 [facility] Comment on above: Order Comment: No: D o not add to previous draw Result Comment: REFE RENCE RANGES: 0.00 - 0.04 ng/ml NORMAL 0.05 - 0.50 ng/ml INDETERMINATE > 0.50 ng/ml CONSISTENT WITH AN M.I. Performed By: #### 5 0608 #### [facility] [address] [facility]. [address] UFH HEPARIN ASSAYon 07-02-19 21 UNFRACTIONATED HEPARIN <0.10 Critically low 0.30-0.70 [facility] Comment on above: Result Comment: [place] roxaban and Apixaban will interfere with the anti Xa assay used to monitor UFH and LMWH. RESULTS CHECKED AND CALLED. ACCURATELY READ BACK BY Jesus Manuel Velez RN at 2147. Performed By: #### 5 [id number] #### [facility] [address] [place] [address], [facility] Encounters Encounter Date Encounter Type Care Provider Facility Start: 04-17-2023 End: 04-17-2023 ambulatory CANDI QUIROS [facility] Start: 03-16-2023 End: 03-16-2023 ambulatory SCOTT TAI Not Available Start: 02-19-2023 End: 02-19-2023 ambulatory CARLA SESAY [facility] Start: 12-09-2022 End: 12-09-2022 ambulatory CELIA DURHAM [facility] Start: 04-22-2022 End: 04-22-2022 ambulatory Driss Smith Other [employer] Other Start: 04-22-2022 Telephone encounter Driss álvarez [facility] Start: 12-19-2021 End: 12-19-2021 ambulatory Driss Smith Other [employer] Other Start: 12-19-2021 Telephone encounter Driss álvarez [facility] Start: 07-26-2021 End: 07-26-[address] PRAVEEN MEADOWS Facility:[facility] Start: 05-06-2021 End: 05-06-[address] SCOTT TAI Facility:[facility] Start: 01-06-2021 End: 01-06-[address] JASKARAN CARRERA Facility:[facility] Start: 07-01-2020 End: 07-02-2020 Patient encounter procedure VIDAL ODOM Facility:[facility] Start: 06-28-2018 End: 06-29-2018 Patient encounter procedure DEFAULT PHYSICIAN Facility:[facility] Procedures Date Procedure Procedure Detail Performing Clinician Start: 07-02-2020 MEASUREMENT OF CARDI AC TOTAL ACTIVITY, EXTERNAL APPROACH SAMER Tian BARI Start: 07-02-2020 ULTRASONOGRAPHY OF R IGHT AND LEFT HEART, TRANSESOPHAGEAL SAMER J DYAN Payers Date Payer Category Payer Unknown [id number] 1940 Unknown [id number] [id number] [id number] 1940 Unknown [id number] 2.16.8 [id number] 1940 Unknown [id number] 2.16.84 [id number] 1940 Unknown [id number] 2.16.84 [id number] 1940 Unknown [id number] 2.16.84 [id number] 1940 Unknown [id number] Unknown Social History Date Type Detail Facility Sex Assigned At [employer] Other Clinical Notes 04-22-2022 to 04-17-2023 Note [...] All other systems reviewed and are negative. [facility] 02-19-2023 Note Patient here for 3 m [...] All other systems reviewed and are negative. [facility] 02-19-2023 Note Cardiology Clinic No te [...] 3 out of 3 bypass grafts Severe stebbins coronary artery disease 70% stenosis in small obtuse marginal Coronary artery bypass graftin02/21/2010 Coronary artery (more content not included)... [facility] 12-09-2022 Note Currently stable without symptom s [facility] 12-09-2022 Note As above [facility] 12-09-2022 Note [facility]- II- remains eu volemic without exacerbation Continue GDMT- Asa, lipitor, coreg, lisinopril, aldactone Diuretic therapy- none at this time Monitor daily weights, I&O, fluid restriction 1.5-2L/day, renal function and electrolytes- Echocardiogram ordered for known reduced EF, recent chest pain and hypotension [facility] 12-09-2022 Note UTP CARDIOLOGY PROGR ESS [...] CHF (congestive heart failure), NYHA class 2 (CMS/[facility]) [facility]- II- remains euvolemic without exacerbation Continue GDMT- Asa, lipitor, coreg, lisinopril, aldactone Diuretic therapy- none at this time Monitor daily weights, I&O, fluid restriction 1.5-2L/day, renal function and electrolytes- Echocardiogram ordered for known reduced EF, recent chest pain and hypotension Ischemic cardiomyopathy As above Dyspnea Currently stable without symptoms RTC 3 months [facility] 12-09-2022 Note Hypertension is curr ently well controlled, PCP had reduced multiple HTN meds r/t noted symptomatic hypotension Coreg, lisinopril and aldactone were all reduced by half [facility] 12-09-2022 Note Continue statin [facility] 12-09-2022 Note Coronary artery dise ase is stable Continue GDMT- ASA, coreg, lipitor, plavix, imdur, and lisinopril continue risk factor modifications- heart healthy diet, regular exercise as tolerated and continue all medications. [facility] 04-22-2022 Evaluation note Encounter Date Diagnosis Assessment Notes Apr, Liver lesion, right lobe (ICD-10 - K76.9) [employer] Other Evaluation noteNo InformationNort [employer] Other History general Narrative - Reported* Type Description Date Medical History GERD Medical History HTN Medical History hyperlipidemia Medical History CHF Surgical History tonsillectomy Surgical History cholecystectomy Surgical History triple bypass Surgical History appendectomy Hospitalization History see surgical history [employer] Other Summary Purpose Family History No Family [...] Found Hospital Course Note MR#: [id number] I [facility] Pt. Name: Radha Cabello Admitted: 07/01/2020 Discharged: [...] and content) DATE CREATED AUTHOR 06/29/2018 [facility] DATE CREATED AUTHOR AUTHOR'S ORGANIZ ATION 07/13/2020 [facility] DATE CREATED AUTHOR AUTHOR'S ORGANIZ ATION 06/17/2021 [facility] DATE CREATED AUTHOR AUTHOR'S ORGANIZ ATION 07/31/2021 [facility] DATE CREATED AUTHOR AUTHOR'S ORGANIZ ATION 09/23/2021 [facility] DATE CREATED AUTHOR AUTHOR'S ORGANIZ ATION 03/16/2023 [facility] dical Specialists [facility] DATE CREATED AUTHOR AUTHOR'S ORGANIZ ATION 04/19/2023 [facility] REASON FOR VISIT (unrecogniz ed section [...] BE BASED ON THE PRIMARY CLINICAL RECORDS. [facility] [facility]. provides no warranty or guarantee of the accuracy or completeness of information in this document.
[2023-05-23] VITALS (12 sets, daily range): BP systolic 147–158; BP diastolic 74–77; PULSE 57–80; RESP 18–20; TEMP 36.3–36.6; O2SAT 96–98
[2023-05-23] MEDS: 0.9 % SODIUM CHLORIDE 1,000 ML 100 ML IV (00:14)
--- NOTE | 2023-05-23 04:00 | ECG_ITS ---
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1940 Requested By: PHOENIX GONZALEZ Order Number: [id number] Reading MD: DAPHNIE ANDERSON Measurements Intervals [place] Rate: 63 P: 10 [place]: 222 QRS: 139 QRSD: 102 T: 92 QT: 373 QTc: 383 Interpretive Statements SINUS RHYTHM WITH SINUS ARRHYTHMIA WITH FIRST DEGREE AV BLOCK LEFT POSTERIOR FASCICULAR BLOCK [QRS AXIS > 109, INFERIOR Q] ANTERIOR MYOCARDIAL INFARCTION [40+ ms Q WAVE AND/OR ST/T ABNORMALITY IN V3/V4], OF INDETERMINATE AGE Compared to ECG 05/22/2023 19:06:17 Left posterior fascicular block now present Myocardial infarct finding still present Electronically Signed On 05-24-2023 5:56:53 EST by DAPHNIE ANDERSON
[2023-05-23] MEDS: OMEPRAZOLE 40 MG CAPSULE.DR PO (05:56)
[2023-05-23 06:03] LABS: Basophils Absolute Auto 0.1 10^3/uL (0.0-0.1); Basophils Percent Auto 0.7 % (0.2-2.0); Eosinophils Absolute Auto 0.2 10^3/uL (0.0-0.7); Eosinophils Percent Auto 2.2 % (0.9-7.0); Hematocrit 37.7 % (42.0-54.0); Hemoglobin 12.2 g/dL (14.0-18.0); Immature Granulocytes Abs Auto 0.03 10^3/uL (0.00-0.03); Immature Granulocytes Pct Auto 0.3 % (0.0-0.5); Lymphocytes Percent Auto 22.9 % (20.5-60.0); Mean Corpuscular HGB Conc 32.4 g/dL (29.9-35.2); Mean Corpuscular Hemoglobin 28.8 pg (25.9-34.0); Mean Corpuscular Volume 88.9 fL (80.0-94.0); Mean Platelet Volume 10.5 fL (9.5-13.5); Monocytes Absolute Auto 0.9 10^3/uL (0.3-0.8); Monocytes Percent Auto 10.3 % (1.7-12.0); Neutrophils Absolute Auto 5.5 10^3/uL (1.4-6.5); Neutrophils Percent Auto 63.6 % (43.0-75.0); Platelet Count 182 10^3/uL (150-450); Red Blood Count 4.24 10^6/uL (4.70-6.10); Red Cell Distribution Width 14.4 % (11.0-15.0); White Blood Count 8.6 10^3/uL (4.0-11.0)
[2023-05-23 06:23] LABS: Troponin I High Sensitivity 20.2 pg/mL (4.0-76.1)
[2023-05-23 07:33] LABS: Alanine Aminotransferase 18 U/L (16-63); Albumin Level 3.2 g/dL (3.4-5.0); Alkaline Phosphatase 57 U/L (46-116); Anion Gap 16.9; Aspartate Amino Transferase 15 U/L (15-37); BUN Creatinine Ratio 24.6; Bilirubin Total 1.2 mg/dL (0.2-1.0); Calcium 8.5 mg/dL (8.5-10.1); Carbon Dioxide 19.6 mmol/L (21.0-32.0); Chloride 110 mmol/L (98-107); Chol HDL Ratio 2.4; Cholesterol 103 mg/dL (<=200); Estimated GFR (African America >60 (>=60); Estimated GFR (Non-African Ame 57 (>=60); Globulin 3.1 g/dL; Glucose 89 mg/dL (74-106); HDL Cholesterol 43 mg/dL (40-60); LDL Cholesterol Calculated 42.4 mg/dL; Magnesium 2.3 mg/dL (1.8-2.4); Potassium 4.5 mmol/L (3.5-5.1); Sodium 142 mmol/L (136-145); Total Protein 6.3 g/dL (6.4-8.2); Triglycerides 88 mg/dL (<=150); VLDL CHOLESTEROL 17.6 mg/dL
--- NOTE | 2023-05-23 09:43 | P.HP_ITS ---
H&P: HPI History of Present Illness Chief complaint: Hypotension Narrative: Patient presented to the emergency room with right arm pain. And has significant hypotension. No real chest pain. Patient was admitted to observation for workup and treatment of same Review of Systems ROS Status of ROS 10 or more systems reviewed and unremark able except as noted in history and below [facility] Medical History (Updated 05/22/23 @ 23:36 by Tiffany Bah) Myocardial infarct ?I21.9 - Acute myocardial infarction, unspecified (ICD-10) Surgical History (Updated 05/22/23 @ 23:36 by Tiffany Bah) S/P triple vessel bypass ?Z95.1 - Presence of aortocoronary bypass graft (ICD-10) Social History Smoking status: Never smoker Highest level of school completed/degree received: 11th grade Meds Home Medications and Allergies Home Medications Medication Instructions Recorded Confirmed Type aspirin 81 mg tablet,delayed 81 mg PO DAILY 10/20/22 05/22/23 History release (Adult Low Dose Aspirin) atorvastatin 40 mg tablet 40 mg PO BEDTIME 10/20/22 05/23/23 History clopidogrel 75 mg tablet 75 mg PO DAILY 10/20/22 05/22/23 History isosorbide mononitrate 30 mg 30 mg PO DAILY 10/20/22 05/22/23 History tablet,extended release 24 hr nitroglycerin 0.4 mg sublingual 0.4 mg sublingual Q5M 10/20/22 05/22/23 History tablet pantoprazole 40 mg tablet,delayed 40 mg PO DAILY 10/20/22 05/22/23 History release carvedilol 12.5 mg tablet 12.5 mg PO BID #60 tabs 05/23/23 Rx lisinopril 20 mg tablet 20 mg PO DAILY #30 tabs 05/23/23 Rx Allergies Allergy/AdvReac Type Severity Reaction Status Date / Time No Known Drug Allergies Allergy Verified 05/22/23 19:03 Exam Constitutional Vital Signs, click to edit/add: Last Vital Signs Temp 97.4 F L 05/23/23 07:00 Pulse 73 05/23/23 08:00 Resp 18 05/23/23 07:41 BP 158/74 H 05/23/23 07:00 Pulse Ox 96 05/23/23 07:00 O2 Del Method Room Air 05/23/23 07:00 Common normals: no apparent distress, average body habitus, oriented x3, no limitations, healthy appearing, alert and well nourished [facility] Common normals: normocephalic and head/scalp atraumatic Eye Common normals: EOMs intact bilaterally and conjunctivae normal Respiratory Common normals: normal respiratory effort, no retractions, no use of accessory muscles and clear to auscultation bilaterally Cardio Common normals: regular rate, regular rhythm, S1 normal heart sound and S2 normal heart sound GI Common normals: Normal to inspection, nondistended, normoactive bowel sounds present, soft to palpation and non-tender Extremity Common normals: normal to inspection and full ROM Neuro Common normals: oriented x3, CN's II-XII intact bilaterally, moves all extremities, no focal motor deficits and no sensory deficits noted Psych Appearance: grossly normal Results Labs Labs: Short CBC 05/22/23 05/23/23 Range/Units 19:15 04:39 WBC 10.6 8.6 (4.0-11.0) 10^3/uL Hgb 13.6 L 12.2 L (14.0-18.0) g/dL Hct 41.4 L 37.7 L (42.0-54.0) % Plt Count 210 182 (150-450) 10^3/uL BMP 05/22/23 05/23/23 19:15 04:39 Sodium 138 142 Potassium 4.3 4.5 Chloride 105 110 H Carbon Dioxide 23.4 19.6 L BUN 33.0 H 30.0 H Creatinine 1.56 H 1.22 Glucose 169 H 89 Calcium 8.9 8.5 Liver Function 05/23/23 Range/Units 04:39 Total Bilirubin 1.2 H (0.2-1.0) mg/dL AST 15 (15-37) U/L ALT 18 (16-63) U/L Alkaline Phosphatase 57 (46-116) U/L Albumin 3.2 L (3.4-5.0) g/dL Assessment and Plan Assessment and Plan (1) Acute hypotension: (2) Atypical chest pain: Plan Acute hypotension with right arm pain. Catheter related from a cardiac standpoint. Cardiac markers were negative. Did have acute renal injury on admission. Given fluids overnight and held blood pressure pills his blood pressure is actually high this morning. At this point we will restart his medications at half the dose. If he tolerates that he will be discharged home in improving condition. Medications see list. Follow-up with PCP within the next week. Hypercholesterolemia-continue with current medicines History of coronary artery disease-continue current medications GERD-continue with current medications
[2023-05-23] MEDS: ASPIRIN 81 MG TABLET.DR PO (09:56)
[2023-05-23] MEDS: ISOSORBIDE MONONITRATE 30 MG TAB.ER.24H PO (09:56)
[2023-05-23] MEDS: CARVEDILOL 12.5 MG TABLET PO (09:57)
[2023-05-23] MEDS: LISINOPRIL 20 MG TABLET PO (09:57)
[2023-05-23] MEDS: CLOPIDOGREL BISULFATE 75 MG TABLET PO (09:57)
--- NOTE | 2023-05-23 12:45 | P.DS_ITS ---
DS: Providers Provider Date of admission: 05/22/23 23:23 Primary care physician: PHOENIX GONZALEZ DS: Diagnosis Discharge Diagnosis (1) Acute hypotension: (2) Atypical chest pain: Plan Acute hypotension with right arm pain. Hypercholesterolemia History of coronary artery disease GERD DS: Summary Hospital Course Hospital Course: Patient is seen and evaluated in the emergency room secondary to right arm pain. Cardiac etiology was ruled out. Did have significant hypotension on admission. Patient was given IV fluids, held blood pressure medications and his blood pressure and kidney function were improving the following day. I reinstituted his blood pressure medication at half the previous dose. The plan was to be tolerated that he will be discharged home in improving condition. Medications see list. Follow-up with PCP within the next week. Time Spent with Patient Time attestation: Total time spent providing and/or coordinating discharge services: Time spent: less than 30 minutes Exam Constitutional Vital Signs, click to edit/add: Last Vital Signs Temp 97.8 F 05/23/23 11:54 Pulse 63 05/23/23 11:54 Resp 18 05/23/23 11:54 BP 147/77 H 05/23/23 11:54 Pulse Ox 96 05/23/23 11:54 O2 Del Method Room Air 05/23/23 11:54 Common normals: no apparent distress, average body habitus, oriented x3, no limitations, healthy appearing, alert and well nourished [facility] Common normals: normocephalic and head/scalp atraumatic Eye Common normals: EOMs intact bilaterally and conjunctivae normal Respiratory Common normals: normal respiratory effort, no retractions, no use of accessory muscles and clear to auscultation bilaterally Cardio Common normals: regular rate, regular rhythm, S1 normal heart sound and S2 normal heart sound GI Common normals: Normal to inspection, nondistended, normoactive bowel sounds present, soft to palpation and non-tender Extremity Common normals: normal to inspection and full ROM Neuro Common normals: oriented x3, CN's II-XII intact bilaterally, moves all extremities, no focal motor deficits and no sensory deficits noted Psych Appearance: grossly normal DS: Data Data Completed and Pending Labs on day of discharge: Labs from last 24 hours 05/23/23 04:39 WBC 8.6 RBC 4.24 L Hgb 12.2 L Hct 37.7 L MCV 88.9 MCH 28.8 MCHC 32.4 RDW 14.4 Plt Count 182 MPV 10.5 Neut % (Auto) 63.6 Lymph % (Auto) 22.9 [place] % (Auto) 10.3 Eos % (Auto) 2.2 Baso % (Auto) 0.7 Neut # (Auto) 5.5 Lymph # (Auto) 2.0 [place] # (Auto) 0.9 H Eos # (Auto) 0.2 Baso # (Auto) 0.1 Abs Immat Gran (auto) 0.03 Imm/Tot Granulo (auto) 0.3 Sodium 142 Potassium 4.5 Chloride 110 H Carbon Dioxide 19.6 L Anion Gap 16.9 BUN 30.0 H Creatinine 1.22 Est GFR ( Amer) >60 Est GFR (Non-Af Amer) 57 L BUN/Creatinine Ratio 24.6 Glucose 89 Calcium 8.5 Magnesium 2.3 Total Bilirubin 1.2 H AST 15 ALT 18 Alkaline Phosphatase 57 Troponin I High Sens 20.2 NT-Pro-B Natriuret Pep 142.0 Total Protein 6.3 L Albumin 3.2 L Globulin 3.1 Albumin/Globulin Ratio 1.0 Triglycerides 88 Cholesterol 103 LDL Cholesterol, Calc 42.4 VLDL Cholesterol 17.6 HDL Cholesterol 43 Cholesterol/HDL Ratio 2.4 Discharge Plan Discharge Disposition: Home, Self-Care Condition: Good Discharge Medications: New carvedilol 12.5 mg Tablet 12.5 mg PO BID Qty: 60 11RF lisinopril 20 mg Tablet 20 mg PO DAILY Qty: 30 11RF Continued atorvastatin 40 mg tablet 40 mg PO BEDTIME clopidogrel 75 mg tablet 75 mg PO DAILY isosorbide mononitrate 30 mg tablet extended release 24 hr 30 mg PO DAILY nitroglycerin 0.4 mg tablet, sublingual 0.4 mg sublingual Q5M pantoprazole 40 mg tablet,delayed release (DR/EC) 40 mg PO DAILY aspirin [Adult Low Dose Aspirin] 81 mg tablet,delayed release (DR/EC) 81 mg PO DAILY Discontinued carvedilol 25 mg tablet 25 mg PO Q12H lisinopril 40 mg tablet 40 mg PO DAILY spironolactone 25 mg tablet 25 mg PO DAILY Activity: return to work once cleared by your PCP/specialist Diet: advance to your usual diet Patient Instructions: Lisinopril (By mouth), Carvedilol (By mouth) Forms: Portal Instructions Follow Up Appointments: Follow up with your PCP within 7-10 days Discharge Date/Time: 05/23/23 12:11
--- NOTE | 2023-06-01 15:25 | CM.DCFOLLOWU ---
Person spoke with: patient How are you feeling? well How is your pain? no pain Did you understand your discharge instructions? yes Do you have any questions about your discharge instructions? no Were you given any prescriptions at discharge? yes Were you able to get your prescriptions filled? yes Do you understand how to take your medications as ordered? yes Do you have any questions about your follow up appointment and do you plan to keep your follow up appointment? had follow up with Dr. Tai Is there anything else that you would like to discuss? patient voiced his blood pressure is going up and down. Advised pt to call back his PCP office and let them know. Questions/Comments/Concerns/Other: N/A
== END 2023-05-23 12:11 | disposition home or self-care (01) ==
LOC: ER 22:51 → MS 23:28
PROVIDERS: Nurse Practitioner Acute Care; Admitting Provider Family Medicine; Emergency Provider Internal Medicine; PCP Internal Medicine; Visit Provider Family Medicine
DX: I95.9 Hypotension, unspecified (principal); N17.9 Acute kidney failure, unspecified; R07.89 Other chest pain; E78.00 Pure hypercholesterolemia, unspecified; K21.9 Gastro-esophageal reflux disease without esophagitis; M79.601 Pain in right arm; I25.10 Atherosclerotic heart disease of native coronary artery without angina pectoris; Z95.1 Presence of aortocoronary bypass graft; I25.2 Old myocardial infarction; Z79.82 Long term (current) use of aspirin; Z79.899 Other long term (current) drug therapy
CPT/HCPCS: 36415; 71045; 80048; 80053; 80061; 83735; 83880; 84484; 85025; 85378; 93005; 96361; 96374; 99285; G0378; J2270

== ENCOUNTER 2024-03-09 08:43 | Outpatient (OUT) | payer MEDICARE, SELFPAY ==
--- NOTE | 2024-03-09 09:00 | CA_ITS ---
Patient Name: RADHA BOB MR#: [id number] : 1940 Exam Date: 03/09/2024 Ordering Doctor: CANDI QUIROS M.D. ECHOCARDIOGRAM REPORT PROCEDURE: CA ECHO DOPPLER COMPLETE INDICATIONS: Chronic systolic heart failure COMPARISON: None. DESCRIPTION: COMPLETE ECHOCARDIOGRAM Real-time transthoracic echocardiography with 2D, M-mode, spectral and color flow Doppler performed. QUALITY: Technical quality was good. LEFT VENTRICLE: Normal chamber size. Normal left ventricular wall thickness. Global left ventricular systolic function is moderately decreased. There is akinesis of the mid and distal septum, apex, apical inferior and apical anterior segments. LV EF: Visual estimation of left ventricular ejection fraction is 35-40% DIASTOLIC: Grade I diastolic dysfunction. ATRIAL SEPTUM: LEFT ATRIUM: Moderate dilatation. RIGHT ATRIUM: Moderate dilatation. RIGHT VENTRICLE:Normal chamber size. Normal right ventricular systolic function. TRICUSPID VALVE: Normal mobility and thickness. No stenosis with trivial regurgitation. No evidence of pulmonary hypertension. RVSP 33 mmHg MITRAL VALVE: Normal mobility and thickness. No evidence of mitral valve stenosis. There is no mitral annular calcification. Trivial mitral regurgitation. AORTIC VALVE: Normal trileaflet appearance. Thickened aortic valve. Normal leaflet mobility. No evidence of aortic valve stenosis. Trivial aortic regurgitation. AORTIC ROOT: Normal diameter and appearance. PULMONIC VALVE: Normal thickness and mobility. No stenosis. Mild regurgitation. PERICARDIUM: No evidence of pericardial effusion. IVC: Collapses with inspirations. Normal size. PLEURA: CONCLUSION: 1. The left ventricle is normal in size and exhibits segmental wall motion abnormalities consistent with a prior left anterior descending myocardial infarction. Systolic function is moderately reduced and estimated LVEF is 35 to 40%. 2. Normal right ventricular size and systolic function. 3. Moderate biatrial dilatation. 4. No significant valvular dysfunction. 5. Normal right-sided pressures. Adult Echocardiography Procedure Report Left Ventricle LVEDD (3.7 - 5.6 cm): 4.86 cm LVESD (2.2 - 4.0 cm): 4.00 cm LVIVS thickness (0.6 - 1.2 cm): 1.04 cm LVPW thickness (0.5 - 1.0 cm): 0.95 cm e': 0.06 m/s E - e': 6.98 LVOT Max Gradient: 2.57 mm[Hg] LVOT Area (cm2): 0.80 m/s Peak Velocity (LVOT): 0.80 m/s Mean Velocity (LVOT): 0.57 m/s LVOT Diameter 2.00 cm Left Ventricular Ejection Fraction: 35-40 % Left Atrium LA Volume Index (2D A2C): 37.44 ml/m2 Left Atrium Systolic Dimension: 4.86 cm Mitral Valve MV E to A Ratio: 0.45 Mitral Valve A-Wave Peak Velocity: 0.99 m/s Mitral Valve E-Wave Peak Velocity: 0.44 m/s Right Ventricle RV Internal Diastolic Dimension: 3.97 cm Aorta AO Root Diam: 3.31 cm Ascending Ao Diam: 3.10 cm Aortic Valve AoV Area (Peak Adarsh): 2.40 cm2, 2.40 cm2 AoV Area (VTI): 2.17 cm2, 2.17 cm2 Peak Velocity(Antegrade Flow): 1.05 m/s Peak Gradient(Antegrade Flow): 4.39 mm[Hg] Mean Velocity(Antegrade Flow): 0.76 m/s Mean Gradient(Antegrade Flow): 2.59 mm[Hg] Velocity Time Integral: 22.61 cm Tricuspid Valve Peak Velocity (Regurgitant Flow): 2.56 m/s, 2.42 m/s, 2.76 m/s Pulmonic Valve Mean Gradient: 1.94 mm[Hg], 2.21 mm[Hg], 2.46 mm[Hg] Mean Velocity: 0.62 m/s, 0.67 m/s, 0.75 m/s Peak Velocity: 1.14 m/s Peak Gradient: 4.81 mm[Hg], 5.70 mm[Hg], 5.03 mm[Hg] Right Atrium Right Atrium Systolic Pressure: 53.71 ml, 53.71 ml Dictated by: Kyle Patrick M.D. on 03/09/2024 at 13:18 Approved by: Kyle Patrick M.D. on 03/09/2024 at 13:26
--- OUTSIDE RECORDS SUMMARY | 2024-03-09 09:00 | XMS_ITS | CCD ---
Author Organization [facility] Care Team Providers Care Allergy Nurse Name Role Phone PHYSICIAN, DEFAULT Admitting Unavailable PHYSICIAN, DEFAULT Attending Unavailable SCOTT TAI Primary Care Unavailable VIDAL ODOM Attending Unavailable VIDAL ODOM Admitting Unavailable SCOTT TAI Primary Care Unavailable PADMA PRADO Referring Unavailable CT Procedure Practitioner UnavailBINDU Greenwood Surgeon Unavailable PAY, [...] Carlton Bravo Consulting Unavailable Driss Smith Unavailable Scott Tai MD Unavailable Scott Tai MD Primary Care Provider CANDI QUIROS Attending Unavailable CARLA SESAY Attending Unavailable CELIA DURHAM Attending Unavailable CANDI QUIROS Attending Unavailable SCOTT TAI Attending Unavailable RONNIE OLVERA Attending Unavailable SCOTT TAI Attending Unavailable SCOTT TAI Attending Unavailable SCOTT TAI Attending Unavailable SCOTT TAI Attending Unavailable Allergies Allergy Classification Reported Allergen(s) Allergy Type Date of Onset Reaction(s) Facility (1 source) 98477,00 Drug allergy (disorder) 02-21-2010 [facility] Repository Medications Current Medications Medication Drug Class(es) Dates Sig (Normalized) Sig (Original) amylase 994324 unt / lipase 54676 unt / protease 613500 unt delayed release oral capsule (5 sources) Start: 10-02-2021 take 1 capsule by mouth every eight hours Creon 60607-326225 UNIT 1 CAPSULE Orally THREE TIMES A DAY for 30 days Sep, Active take 83177-50482 [IU ] by mouth three times daily at mealtime pancrelipase, Fno-Crhk-Qptq, (Creon) 03038-74840 units capsule Take by mouth 3 (three) times a day with meals. 0 Active aspirin 81 mg delayed release oral tablet (5 sources) Platelet Aggregation Inhibitor, Nonsteroidal Anti-inflammatory Drug take 1 tablet by mouth once daily aspirin 81 MG EC tablet take 1 tablet (81MG) by oral route every day Oral 0 Active atorvastatin 40 mg oral tablet (5 sources) HMG-CoA Reductase Inhibitor Start: take 1 tablet by mouth once daily at bedtime atorvastatin (Lipitor) 40 MG tablet Indications: Mixed hyperlipidemia (CMS/HCC) TAKE 1 TABLET BY MOUTH EVERYDAY AT BEDTIME 90 tablet 3 04/21/2023 Active take 1 tablet by antonio th every twenty-four hours Atorvastatin Calcium 40 MG 1 tablet Oral ly Once a day Active carvedilol 12.5 mg oral tablet (5 sources) alpha-Adrenergic Kary, beta-Adrenergic Kary Start: 05-23-2023 take 1 tablet by mouth in the morning carvedilol (Coreg) 12.5 MG tablet Take 12.5 mg by mouth in the morning and 12.5 mg in the evening. Take with meals. 0 05/23/2023 Active take 1 tablet by antonio th every twelve hours Carvedilol 25 MG 1 tablet with food Oral ly Twice a day Active clopidogrel 75 mg oral tablet (5 sources) P2Y12 Platelet Inhibitor clopidogrel (Plavix) 75 MG tablet 1 (one) time each day at the same time. 0 Active hydrALAZINE hydrochloride 25 mg oral tablet (2 sources) Arteriolar Vasodilator take 1 tablet by mouth every eight hours hydrALAZINE HCl 25 MG 1 tablet with food Orally Three times a day Active 24 hr isosorbide mononitrate 30 mg extended release oral tablet (5 sources) Nitrate Vasodilator take 1 tablet by mouth once daily isosorbide mononitrate ER (Imdur) 30 MG 24 hr tablet TAKE 1 TABLET BY MOUTH EVERY DAY for 90 0 Active lisinopril 20 mg oral tablet (5 sources) Angiotensin Converting Enzyme Inhibitor Start: take 1 tablet by mouth in the morning lisinopril 20 MG tablet Take 20 mg by mouth in the morning. 0 05/23/2023 Active take 1 tablet by antonio th every twenty-four hours Lisinopril 40 MG 1 tablet Orally Once a day Active Magnesium (3 sources) take 1 capsule by mouth once daily Magnesium 400 MG capsule Take 1 capsule by mouth 1 (one) time each day. 0 Active methylPREDNISolone (2 sources) Corticosteroid Start: 2023 End: 2023 methylPREDNISolone (Medrol Dospak) 4 MG tablets Indications: Right cervical radiculopathy Follow schedule on package instructions 21 tablet 0 05/27/2023 06/03/2023 Active Multiple Vitamins-Minerals (PRESERVISION AREDS 2 PO) (3 sources) take 1 tablet by mouth in the morning Multiple Vitamins-Minerals (PRESERVISION AREDS 2 PO) Take 1 tablet by mouth in the morning. 0 Active nitroglycerin 0.4 mg sublingual tablet (5 sources) Nitrate Vasodilator Start: 2021 nitroglycerin (Nitrostat) 0.4 MG SL tablet pantoprazole 40 mg delayed release oral tablet (5 sources) Proton Pump Inhibitor Start: 2022 End: 2023 take 1 tablet by mouth in the morning pantoprazole (ProtoNix) 40 MG EC tablet Indications: Dyspepsia Take 1 tablet (40 mg) by mouth in the morning. Do not crush, chew, or split.. 90 tablet 3 03/16/2023 03/15/2024 Active take 1 tablet by antonio th every twenty-four hours Pantoprazole Sodium 40 MG 1 tablet Orall y Once a day Active spironolactone 25 mg oral tablet (2 sources) Aldosterone Antagonist Spironola ctone 25 MG 1 tablet Orally Active Problems Active Problems Problem Classification Problem Date Documented Da te Episodic/Chronic Blindness and vision defects (3 sources) Bilateral regular astigmatism; Translations: [Regular astigmatism, bilateral] Onset: 03-16-2023 03-16-2023 Episodic Cardiac dysrhythmias (3 sources) Cardiac arrhythmia; Translations: [Cardiac arrhythmia, unspecified] Onset: 10-23-2022 10-23-2022 Chronic Cardiac dysrhythmias (1 source) Bradycardia, unspecified; Translations: [BRADYCARDIA UNSPECIFIED] Onset: 05-08-2021 Episodic Cataract (3 sources) Nuclear sclerosis; Translations: [Age-related nuclear cataract, bilateral] Onset: 10-23-2022 10-23-2022 Chronic Chronic kidney disease (3 sources) Chronic kidney disease stage 3A ; Translations: [Stage 3a chronic kidney disease (HCC)] Onset: 10-23-2022 10-23-2022 Chronic Chronic kidney disease (2 sources) Chronic kidney disease; Translations: [Chronic kidney disease, stage 3a] Onset: 12-09-2022 Congestive heart failure; nonhypertensive (7 sources) Chronic systolic heart failure; Translations: [Chronic systolic (congestive) heart failure] Onset: 10-23-2022 10-23-2022 Chronic Coronary atherosclerosis and other heart disease (20 sources) Old myocardial infarction; Translations: [Atherosclerotic heart disease of [place] coronary artery without angina pectoris] Onset: 07-30-2021 Resolved: 01-08-2023 05-11-2023 Chronic Coronary atherosclerosis and other heart disease (1 source) Presence of aortocoronary bypass graft; Translations: [PRESENCE AORTOCORONARY BYPASS GRAFT] Onset: 07-30-2021 Episodic Disorders of lipid metabolism (5 sources) Hyperlipidemia; Translations: [Hyperlipidemia, unspecified] Onset: 08-21-2022 10-23-2022 Chronic Diverticulosis and diverticulitis (3 sources) Diverticulosis of colon; Translations: [Diverticulosis of large intestine without perforation or abscess without bleeding] Onset: 10-23-2022 10-23-2022 Chronic Essential hypertension (15 sources) Essential (primary) hypertension; Translations: [Benign essential hypertension] Onset: 05-06-2021 Resolved: 01-08-2023 Chronic Heart valve disorders (6 sources) Mitral valve regurgitation; Translations: [Nonrheumatic mitral (valve) insufficiency] Onset: 10-23-2022 10-23-2022 Chronic Hyperplasia of prostate (3 sources) Benign prostatic hyperplasia; Translations: [Benign prostatic hyperplasia with lower urinary tract symptoms] Onset: 10-23-2022 10-23-2022 Chronic Hypertension with complications and secondary hypertension (2 sources) Hypertensive heart disease with heart failure; Translations: [Hypertensive heart disease with heart failure] Onset: 12-09-2022 Chronic Other aftercare (1 source) senior living (current) use of aspirin; Translations: [JAIL CURRENT USE OF ASPIRIN] Onset: 07-30-2021 Episodic Other aftercare (1 source) Other filler leaf cutter long (current) drug therapy; Translations: [OTH JAIL CURRENT DRUG THERAPY] Onset: 07-30-2021 Episodic Other aftercare (1 source) planning analyst (current) use of antithrombotics/anti platelets; Translations: [JAIL ANTITHROMBOT/ANTIPLA TLETS] Onset: 05-08-2021 Episodic Other and ill-defined heart disease (3 sources) Bilateral enlargement of atria; Translations: [Cardiomegaly] Onset: 10-23-2022 10-23-2022 Chronic Other ear and sense organ disorders (3 sources) Sensorineural hearing loss, bilateral; Translations: [Sensorineural hearing loss, bilateral] Onset: 10-23-2022 10-23-2022 Chronic Other ear and sense organ disorders (3 sources) Bilateral hearing loss; Translations: [Unspecified hearing loss, bilateral] Onset: 02-19-2023 03-16-2023 Chronic Other liver diseases (2 sources) Liver disease, unspecified; Translations: [LIVER DISEASE UNSPECIFIED] Onset: 07-30-2021 Chronic Other liver diseases (2 sources) Lesion of liver; Translations: [Liver disease, unspecified] Chronic Other male genital disorders (3 sources) Secondary erectile dysfunction; Translations: [Male erectile dysfunction, unspecified] Onset: 10-23-2022 10-23-2022 Chronic Other nervous system disorders (3 sources) Carpal tunnel syndrome of right wrist; Translations: [Carpal tunnel syndrome, right upper limb] Onset: 10-23-2022 10-23-2022 Chronic Pancreatic disorders (not diabetes) (10 sources) Recurrent pancreatitis; Translations: [Other chronic pancreatitis] Onset: 10-23-2022 Resolved: 01-08-2023 10-23-2022 Chronic Residual codes; unclassified (1 source) Acquired absence of other specified parts of digestive tract; Translations: [ACQ ABSENCE OTH PART DIGESTV TRACT] Onset: 07-30-2021 Episodic Retinal detachments; defects; vascular occlusion; and retinopathy (3 sources) Nonexudative age-related macular degeneration; Translations: [Nonexudative age-related macular degeneration, bilateral, intermediate dry stage] Onset: 10-23-2022 10-23-2022 Chronic Screening and history of mental health and substance abuse codes (1 source) Personal history of nicotine dependence; Translations: [PERSONAL HISTORY OF NICOTINE DEPEND] Onset: 05-08-2021 Episodic Spondylosis; intervertebral disc disorders; other back problems (2 sources) Right cervical root neuropathy; Translations: [Radiculopathy, cervical region] 05-27-2023 Episodic Past or Other Problems Problem Classification Problem Date Documented Da te Episodic/Chronic Abdominal pain (7 sources) Epigastric pain; Translations: [Unspecified abdominal pain] Onset: 07-26-2021 Episodic Genitourinary symptoms and ill-defined conditions (3 sources) Nocturia; Translations: [Nocturia] Onset: 10-23-2022 10-23-2022 Episodic Malaise and fatigue (3 sources) Fatigue; Translations: [Other fatigue] Onset: 08-21-2022 Resolved: 01-08-2023 01-08-2023 Episodic Nonspecific chest pain (3 sources) Chest pain; Translations: [Chest pain, unspecified] Onset: 08-21-2022 Resolved: 01-08-2023 01-08-2023 Episodic Other circulatory disease (3 sources) H/O: hypertension; Translations: [Personal history of other diseases of the circulatory system] Onset: 08-21-2022 Resolved: 01-08-2023 01-08-2023 Episodic Other lower respiratory disease (1 source) Shortness of breath; Translations: [SHORTNESS OF BREATH] Onset: 01-21-2021 Episodic Other lower respiratory disease (3 sources) Dyspnea; Translations: [Dyspnea, unspecified] Onset: 08-21-2022 10-23-2022 Episodic Other lower respiratory disease (2 sources) Other forms of dyspnea; Translations: [Other forms of dyspnea] Onset: 08-21-2022 Episodic Other non-epithelial cancer of skin (6 sources) Basal cell carcinoma of back; Translations: [Basal cell carcinoma of skin of other part of trunk] Onset: 10-23-2022 10-23-2022 Episodic Other nutritional; endocrine; and metabolic disorders (3 sources) Body mass index 25-29 - overweight; Translations: [Overweight] Onset: 10-23-2022 10-23-2022 Episodic Other screening for suspected conditions (not mental disorders or infectious disease) (7 sources) Other specified abnormal findings of blood chemistry; Translations: [Raised prostate specific antigen] Onset: 07-30-2021 Resolved: 01-08-2023 10-23-2022 Episodic Pancreatic disorders (not diabetes) (3 sources) Pancreatic insufficiency; Translations: [Other specified diseases of pancreas] Onset: 10-23-2022 10-23-2022 Episodic Results Test Name Value Interpretation Reference Range Facility Office Visiton 10-05-2023 Follow-up visit [id number] Davina Cabello 1940 M Date Provider Department Center 10/05/2023 CANDI JAVIER Family History Problem Relation Age of Onset Coronary artery disease Father Hypertension Father Family Status - Relation Status Age at Father Level of Service:98026 CT OFFICE/OUTPATIENT ESTABLISHED MOD MDM 30 MIN Normal [facility] Office Visiton 04-17-2023 Follow-up visit [id number] Davina Cabello [address] [facility] Provider Department Center 04/17/2023 CANDI JAVIER [facility] Family History Problem Relation Age of Onset Coronary artery disease Father Hypertension Father Family Status - Relation Status Age at Father Level of Service:74195 CT OFFICE/OUTPATIENT ESTABLISHED MOD MDM 30 MIN [facility] Office Visiton 02-19-2023 Follow-up visit [id number] Davina Cabello 1940 M Date Provider Department Center 02/19/2023 CARLA LEE MIRIAM [facility] Family History Problem Relation Age of Onset Coronary artery disease Father Hypertension Father Family Status - Relation Status Age at Father Level of Service:33092 CT OFFICE/OUTPATIENT ESTABLISHED MOD MDM 30-39 MIN Normal [facility] Office Visiton 12-09-2022 Follow-up visit [id number] Davina Cabello [address] [facility] Provider Department Center 12/09/2022 CELIA BISHOP CARD [place] No family history on file Level of Service:38397 CT OFFICE/OUTPATIENT ESTABLISHED MOD MDM 30-39 MIN Reason for Visit and Comments: Med Refill [[id number]] Normal [facility] ISTAT XRay CREon 09-20-2021 Creatinine [Mass/Vol] 0.9 mg/dL Normal 0.6-1.3 [facility] Comment on above: Result Comment: ER/E SD physician is notified/shown all ISTAT results. Critical values may be confirmed by laboratory testing if deemed necessary by ER attending doctor. Performed By: #### I SCRE #### [address] Point of Care testing , ISTAT GFR ( > 60 Normal [facility] Comment on above: Result Comment: GFR estimated reference range: According to KDOQI guidelines, <60 ml/min/1.73m2 is sufficient to diagnose a patient with chronic kidney disease. PERFORMED BY: [place] [address] PATHOLOGIST ASSOCIATE VICE PRESIDENT CORINNA MCDERMOTT M.D. Performed By: #### I SCRE #### [address] Point of Care testing , ISTAT GFR (Non- Am > 60 Normal [facility] Comment on above: Performed By: #### I SCRE #### [address] Point of Care testing , MR abdomen wo/w conon 2021 MR abdomen wo/w con [facility] [address] MRI Report Signed Patient: Davina Cabello MR#: [id number] : 1940 Acct:[id number] Age/Sex: 81 / M ADM Date: 09/20/21 Loc: [facility] Room: Type: [facility] Attending Dr: Hasmukh Morelos DO Ordering Provider: [...] Ayala Jr., D.O.09/20/2021 11:13 AM Dictation Location: [place] [address] Transcribed By: [facility] 09/20/21 1113 Dictated By: Layton Ayala Jr, DO 09/20/21 1057 Signed By: 09/20/21 1113 [facility] CULTURE URINEon 07-28-2021 CULTURE URINE Isolate 1 [...] F Trimethoprim/Sulfame thoxazole <=20 S F Normal [facility] Comment on above: Performed By: #### U RCX ####[facility] [address] [place], [place] [address] ABD/PELV W CONon 07-28-19 [...] ANDRES GOINS Date: 2021-07-27 12:43 Normal [facility] CBC AUTO DIFFon 07-26-2021 BASO # 0.1 103/ul Normal 0.0-0.1 [facility] Comment on above: Performed By: #### C BC ####[facility] [address] [place] [address]Dr. Nelson Pollock Basophils/100 WBC (Bld) 0.5 % Normal 0.2-2.0 [facility] Comment on above: Performed By: #### C BC ####[facility] [address] [place], [place] [address]Dr. Nelson Pollock EO # 0.2 103/ul Normal 0.0-0.7 [facility] Comment on above: Performed By: #### C BC ####[facility] [address] [place], [place] [address]Dr. Nelson Pollock Eosinophils/100 WBC (Bld) 2.1 % Normal 0.9-7.0 [facility] Comment on above: Performed By: #### C BC ####[facility] [address] [place], [place] [address]Dr. Nelson Pollock Erythrocyte distribution width (RBC) [Ratio] 13.7 % Normal 11.0-15.0 [facility] Comment on above: Performed By: #### C BC ####[facility] [address] [place], [place] [address]Dr. Nelson Pollock Hematocrit (Bld) [Volume fraction] 42.8 % Normal 42.0-54.0 [facility] Comment on above: Performed By: #### C BC ####[facility] [address] [place], [place] [address]Dr. Nelson Pollock Hemoglobin (Bld) [Mass/Vol] 14.5 g/dL Normal 14.0-18.0 [facility] Comment on above: Performed By: #### C BC ####[facility] [address] [place], [place] [address]Dr. Nelson Pollock IG # 0.04 10e3/ul Critically high 0.00-0.03 [facility] Comment on above: Performed By: #### C BC ####[facility] [address] [place] [address]Dr. Nelson Pollock IG % 0.4 % Normal 0.0-0.5 [facility] Comment on above: Performed By: #### C BC ####[facility] [address] [place] [address]DrErika Nelson Pollock LYMPH # 1.7 103/ul Normal 1.2-3.8 [facility] Comment on above: Performed By: #### C BC ####[facility] [address] [place] [address]DrErika Nelson Phill Lymphocytes/100 WBC (Bld) 15.6 % Critically low 20.5-60.0 [facility] Comment on above: Performed By: #### C BC ####[facility] [address] [place] [address]Dr. Nelson Phill MANUAL DIFF REQ NO Normal [facility] Comment on above: Performed By: #### C BC ####[facility] [address] [place] [address]Dr. Nelson Pollock MCH (RBC) [Entitic mass] 29.2 pg Normal 25.9-34.0 [facility] Comment on above: Performed By: #### C BC ####[facility] [address] [place], [place] [address]Dr. Nelson Phill MCHC (RBC) [Mass/Vol] 33.9 g/dL Normal 29.9-35.2 [facility] Comment on above: Performed By: #### C BC ####[facility] [address] [place], [place] [address]DrErika Nelson Phill MCV (RBC) [Entitic vol] 86.1 fL Normal 80.0-94.0 [facility] Comment on above: Performed By: #### C BC ####[facility] [address] [place], [place] [address]DrErika Nelson Phill MONO # 0.8 103/ul Normal 0.3-0.8 [facility] Comment on above: Performed By: #### C BC ####[facility] [address] [place] [address]Dr. Nelson Pollock Monocytes/100 WBC (Bld) 7.3 % Normal 1.7-12.0 [facility] Comment on above: Performed By: #### C BC ####[facility] [address] [place] [id number]. Nelson Pollock NEUT # 8.1 103/ul Critically high 1.4-6.5 [facility] Comment on above: Performed By: #### C BC ####[facility] [address] [place] [address]Dr. Nelson Pollock Neutrophils/100 WBC (Bld) 74.1 % Normal 43.0-75.0 [facility] Comment on above: Performed By: #### C BC ####[facility] [address] [place] [address]Dr. Nelson Pollock Platelet mean volume (Bld) [Entitic vol] 10.2 fL Normal 9.5-13.5 [facility] Comment on above: Performed By: #### C BC ####[facility] [address] [place], [place] [address]Dr. Nelson Pollock PLT 191 103/ul Normal 150-450 [facility] Comment on above: Performed By: #### C BC ####[facility] [address] [place] [address]Dr. Nelson Pollock RBC 4.97 106/ul Normal 4.70-6.10 [facility] Comment on above: Performed By: #### C BC ####[facility] [address] [place] [id number]. Nelson Pollock WBC 11.0 103/ul Normal 4.0-11.0 [facility] Comment on above: Performed By: #### C BC ####[facility] [address] [place] [id number]. Nelson Pollock ER URINE PROFILEon 2 Bilirubin Ql (U) Negative Normal NEGATIVE [facility] Comment on above: Performed By: #### Anny ZAMORA UMICRO #### [facility] [address] [place] [address] [address] Nelson Pollock Clarity (U) SL CLOUDY Abnormal CLEAR [facility] Comment on above: Performed By: #### Anny ZAMORA UMICRO #### [facility] [address] [place] [address] Dr. Nelson Pollock Color (U) LT. YELLOW Normal YELLOW [facility] Comment on above: Performed By: #### Anny ZAMORA UMICRO #### [facility] [address] [place] [address] Dr. Nelson Pollock ERUAHJason A micrscopic examination will be performed if indicated. Normal [facility] Comment on above: Performed By: #### Anny ZAMORA UMICRO #### [facility] [address] [place] [address] Dr. Nelson Pollock Glucose Ql (U) Negative Normal NEGATIVE [facility] Comment on above: Performed By: #### Anny ZAMORA UMICRO #### [facility] [address] [place] [address] Dr. Nelson Pollock Hemoglobin Ql (U) Negative Normal NEGATIVE [facility] Comment on above: Performed By: #### Anny ZAMORA UMICRO #### [facility] [address] [place] [address] Dr. Nelson Pollock Ketones Ql (U) Negative Normal NEGATIVE [facility] Comment on above: Performed By: #### Anny ZAMORA UMICRO #### [facility] [address] [place] [address] Dr. Nelson Pollock LEUKOCYTES SMALL Abnormal NEGATIVE [facility] Comment on above: Performed By: #### Anny ZAMORA UMICRO #### [facility] [address] [place] [address] Dr. Nelson Pollock Nitrite Ql (U) Negative Normal NEGATIVE [facility] Comment on above: Performed By: #### Anny ZAMORA UMICRO #### [facility] [address] [place] [address] Dr. Nelson Pollock pH (U) 5.0 [pH] Normal 5-9 [facility] Comment on above: Performed By: #### DTA DIALLORO #### [facility] [address] [place] [address] Dr. Nelson Pollock SPEC GRAVITY <=1.005 Abnormal 1.005-<=1.025 [facility] Comment on above: Performed By: #### DAT DIALLORO #### [facility] [address] [place] [address] Dr. Nelson Pollock UA PROTEIN Negative Normal NEGATIVE/ TRACE [facility] Comment on above: Performed By: #### DAT DIALLORO #### [facility] [address] [place] [address] Dr. Nelson Pollock UR MICRO IND INDICATED Normal [facility] Comment on above: Performed By: #### DAT DIALLORO #### [facility] [address] [place] [address] Dr. Nelson Pollock Urobilinogen Qn (U) 0.2 {Christopher'U}/dL Normal 0.2 - 1. 0 [facility] Comment on above: Performed By: #### DAT DIALLORO #### [facility] [address] [place] [address] Dr. Nelson Pollock LACTATE/LACTIC ACIDon 2021 Lactate [Moles/Vol] 1.2 mmol/L Normal 0.7-2.0 [facility] Comment on above: Performed By: #### L ACT #### [facility] [address] [place] [address] Dr. Nelson Pollock LIPASEon 07-26-2021 Lipase [Catalytic activity/Vol] 865.0 U/L Critically high 23.0-300.0 [facility] Comment on above: Performed By: #### L IPA, HSTROPN, CMP ####[facility] [address] [place] [address]Dr. Nelson Pollock PROF 14(COMP METB)on 022 Albumin [Mass/Vol] 4.1 g/dL Normal 3.4-5.0 [facility] Comment on above: Performed By: #### L IPA HSTROPN, CMP ####[facility] [address] [place] [address]Dr. Cloverkusum Pollock Albumin/Globulin [Mass ratio] 1.2 {ratio} Normal [facility] Comment on above: Performed By: #### L IPA HSTROPN, CMP ####[facility] [address] [place], [place] [address]Dr. Nelson Pollock ALP [Catalytic activity/Vol] 89 U/L Normal 46-116 [facility] Comment on above: Performed By: #### L IPA HSTROPN, CMP ####[facility] [address] [place], [place] [address]Dr. Cloverkusum Pollock ALT [Catalytic activity/Vol] 43 U/L Normal 16-63 [facility] Comment on above: Performed By: #### L IPA HSTROPN, CMP ####[facility] [address] [place], [place] [address]Dr. Nelson Pollock Anion gap [Moles/Vol] 15.5 mmol/L Normal [facility] Comment on above: Performed By: #### L IPA HSTROPN, CMP ####[facility] [address] [place], [place] [address]Dr. Cloverkusum Pollock AST [Catalytic activity/Vol] 53 U/L Critically high 15-37 [facility] Comment on above: Performed By: #### L IPA HSTROPN, CMP ####[facility] [address] [place], [place] [address]Dr. Nelson Pollock Bilirubin [Mass/Vol] 2.4 mg/dL Critically high 0.2-1.3 [facility] Comment on above: Performed By: #### L IPA HSTROPN, CMP ####[facility] [address] [place], [place] [address]Dr. Nelson Pollock Calcium [Mass/Vol] 8.5 mg/dL Normal 8.5-10.1 [facility] Comment on above: Performed By: #### L IPA HSTROPN, CMP ####[facility] [address] [address]Dr. Nelson Pollock Chloride [Moles/Vol] 105 mmol/L Normal 98-107 [facility] Comment on above: Performed By: #### L IPA, HSTROPN, CMP ####[facility] [address] [address]Dr. Nelson Pollock CO2 [Moles/Vol] 22.3 mmol/L Normal 22.0-30.0 [facility] Comment on above: Performed By: #### L IPA, HSTROPN, CMP ####[facility] E[address] [place], [place] [address]Dr. Nelson Pollock Creatinine [Mass/Vol] 1.06 mg/dL Normal 0.66-1.25 [facility] Comment on above: Performed By: #### L IPA, HSTROPN, CMP ####[facility] We[address] [place], [place] [address]Dr. Nelson Pollock EGFR-AF PALESTINIAN >60 Normal >=60 [facility] Comment on above: Performed By: #### L IPA, HSTROPN, CMP ####[facility] [address] [place], [place] [address]Dr. Nelson Pollock EGFR-NON AF PALESTINIAN >60 Normal >=60 [facility] Comment on above: Performed By: #### L IPA, HSTROPN, CMP ####[facility] [address] [place], [place] [address]Dr. Nelson Pollock Globulin (S) [Mass/Vol] 3.4 g/dL Normal [facility] Comment on above: Performed By: #### L IPA, HSTROPN, CMP ####[facility] [address] [place], [place] [address]Dr. Nelson Pollock Glucose [Mass/Vol] 154 mg/dL Critically high 74-106 T [facility] Comment on above: Performed By: #### L IPA, HSTROPN, CMP ####[facility] [address] [place] [address]Dr. Nelson Pollock Potassium [Moles/Vol] 3.8 mmol/L Normal 3.4-5.0 [facility] Comment on above: Performed By: #### L BRIAN PADILLA, CMP ####[facility] [address] [address]Dr. Cloverkusum Pollock Protein [Mass/Vol] 7.5 g/dL Normal 6.1-8.2 [facility] Comment on above: Performed By: #### L BRIAN PADILLA, CMP ####[facility] [address] [address]Dr. Nelson Pollock Sodium [Moles/Vol] 139 mmol/L Normal 137-145 [facility] Comment on above: Performed By: #### L BRIAN PADILLA, CMP ####[facility] [address] [place], [place] [address]Dr. Nelson Pollock Urea nitrogen [Mass/Vol] 25.0 mg/dL Critically high 7.0-18.0 [facility] Comment on above: Performed By: #### L BRIAN PADILLA, CMP ####[facility] [address] [place], [place] [address]Dr. Nelson Pollock Urea nitrogen/Creatinine [Mass ratio] 23.6 mg/mg Normal [facility] Comment on above: Performed By: #### L BRIAN PADILLA, CMP ####[facility] [address] [place], [place] [address]Dr. Nelson Pollock PROTIMEon 07-26-2021 INR Coag (PPP) [Relative time] 1.07 {INR} Normal [facility] Comment on above: Performed By: #### P TT, PT ####[facility] [address] [place], [place] [address]Dr. Nelson Pollock INR GUIDELINES SEE BELOW Normal [facility] Comment on above: Result Comment: ARTEM RED INR: 2.0 - 3.0 CONDITIONS NOT LISTED BELOW 2.5 - 3.5 FOR PROSTHETIC HEART VALVE REPLACEMENT 2.5 - 3.5 RECURRENT THROMBOSIS Performed By: #### P TT, PT ####[facility] [address] [address]Dr. Nelson Pollock PT Coag (PPP) [Time] 11.5 s Normal 9.0-11.6 [facility] Comment on above: Performed By: #### P TT, PT ####[facility] [address] [place] [address]Dr. Nelson Pollock PTTon 07-26-2021 aPTT Coag (Bld) [Time] 24.9 s Normal 22.3-36.2 [facility] Comment on above: Performed By: #### P TT, PT ####[facility] [address] [address]Dr. Nelson Pollock TROPONIN, HIGH SENSITIVITYon 07-26-2021 HSTROP 38.6 pg/mL Normal 4.0-42.2 [facility] Comment on above: Result Comment: CUT- OFF POINTS HAVE BEEN ESTABLISHED BASED ON THE FOURTH UNIVERSAL DEFINITIONS OF MYOCARDIAL INFARCTION. THE UPPER REFERENCE LIMIT (URL) OF TROPONIN, DEFINED THE 99TH PERCENTILE OF cTnI DISTRIBUTION IN A REFERENCE POPULATION, HAS BEEN CONFIRMED THE DECISION THRESHOLD FOR DE DIAGNOSIS. Performed By: #### L IPA, HSTROPN, CMP ####[facility] [address] [address]Dr. Nelson Pollock URINE MICROSCOPIC ONLYon BACTERIA MODERATE Abnormal NONE SEEN [facility] Comment on above: Performed By: #### Anny ZAMORA UMICRO #### [facility] [address] [place] [address] Dr. Nelson Pollock Bacteria identified Cx Nom (U) INDICATED Normal [facility] Comment on above: Performed By: #### E RUR, UMICRO #### [facility] [address] [place] [address] Dr. Nelson Pollock CAST NONE SEEN Normal NONE SEEN [facility] Comment on above: Performed By: #### E RUR UMICRO #### [facility] [address] [place] [address] Dr. Nelson Pollock Crystals LM Nom (Urine sed) NONE SEEN Normal NONE SEEN [facility] Comment on above: Performed By: #### E RUR UMICRO #### [facility] [address] [address] [address] Nelson Pollock Epithelial cells LM Ql (Urine sed) RARE Normal NONE SEEN /RARE [facility] Comment on above: Performed By: #### Anny ZAMORA UMJOSEPRO #### [facility] [address] [address] [address] Nelson Pollock MUCOUS NONE SEEN Normal NONE SEEN [facility] Comment on above: Performed By: #### DAT DIALLORO #### [facility] [address] [address] [address] Nelson Pollock RBC 2-5 Abnormal 0-2 [facility] Comment on above: Performed By: #### DAT DIALLORO #### [facility] [address] [address] [address] Nelson Pollock WBC (U) [#/Vol] /uL Abnormal NONE SEEN [facility] Comment on above: Performed By: #### DAT DIALLORO #### [facility] [address] [address] [address] Nelson Pollock XR CHEST 1 Von [...] by: PERNELL SARMIENTO Date: 2021-07-26 16:40 Normal [facility] Basic Metabolic Panelon 02-2 Anion gap [Moles/Vol] 16 mmol/L Normal 12-20 [facility] [employer] Comment on above: Result Comment: Servando ctive 04/25/2019 reference range changed. Performed By: #### B MP #### [facility] [address] [place], [place] [id number] Calcium [Mass/Vol] 9.5 mg/dL Normal 8.6-10.2 [facility] Comment on above: Performed By: #### B MP #### [facility] [address] [place], [place] [id number] Chloride [Moles/Vol] 106 mmol/L Normal 98-107 [facility] Comment on above: Performed By: #### B MP #### [facility] [address] [place], [place] [id number] CO2 [Moles/Vol] 24 mmol/L Normal 20-31 [facility] Comment on above: Performed By: #### B MP #### [facility] [address] [place], [place] [id number] Creatinine [Mass/Vol] 0.9 mg/dL Normal 0.7-1.4 [facility] Comment on above: Performed By: #### B MP #### [facility] [address] [place], [place] [id number] eGFRAA 100 mL/min/1.73m2 Normal >60 [facility] Comment on above: Performed By: #### B MP #### [facility] [address] [place], [place] [id number] eGFRNAA 83 mL/min/1.73m2 Normal >60 [facility] Comment on above: Performed By: #### B MP #### [facility] [address] [place], [place] [id number] Glucose [Mass/Vol] 85 mg/dL Normal 65-99 [facility] Comment on above: Result Comment: For FASTING Glucose --- ADA reference ranges: Normal 65-99 mg/dl Prediabetes 100-125 Diabetes >/= 126 Performed By: #### B MP #### [facility] [address] [place], [place] [id number] Potassium [Moles/Vol] 4.1 mmol/L Normal 3.5-5.5 [facility] Comment on above: Performed By: #### B MP #### [facility] [address] [place], [place] [id number] Sodium [Moles/Vol] 142 mmol/L Normal 135-146 [facility] Comment on above: Performed By: #### B MP #### [facility] [address] [place], [place] [id number] Urea nitrogen [Mass/Vol] 16 mg/dL Normal 7-25 [facility] Comment on above: Performed By: #### B MP #### [facility] [address] [place], [place] [id number] CBC AUTO DIFFon 05-06-2021 BASO # 0.1 103/ul Normal 0.0-0.1 [facility] Comment on above: Performed By: #### C BC #### [facility] [address] [place] [address] Dr. Nelson Pollock Basophils/100 WBC (Bld) 0.8 % Normal 0.2-2.0 [facility] Comment on above: Performed By: #### C BC #### [facility] [address] [place] [address] Dr. Nelson Pollock EO # 0.3 103/ul Normal 0.0-0.7 [facility] Comment on above: Performed By: #### C BC #### [facility] [address] [place] [address] Dr. Nelson Pollock Eosinophils/100 WBC (Bld) 2.8 % Normal 0.9-7.0 [facility] Comment on above: Performed By: #### C BC #### [facility] [address] [place] [address] Dr. Nelson Pollock Erythrocyte distribution width (RBC) [Ratio] 13.2 % Normal 11.0-15.0 [facility] Comment on above: Performed By: #### C BC #### [facility] [address] [place] [address] Dr. Nelson Pollock Hematocrit (Bld) [Volume fraction] 45.8 % Normal 42.0-54.0 [facility] Comment on above: Performed By: #### C BC #### [facility] [address] [place] [address] Dr. Nelson Pollock Hemoglobin (Bld) [Mass/Vol] 15.6 g/dL Normal 14.0-18.0 [facility] Comment on above: Performed By: #### C BC #### [facility] [address] [place] [address] Dr. Nelson Pollock IG # 0.04 10e3/ul Critically high 0.00-0.03 [facility] Comment on above: Performed By: #### C BC #### [facility] [address] [place] [address] Dr. Nelson Pollock IG % 0.4 % Normal 0.0-0.5 [facility] Comment on above: Performed By: #### C BC #### [facility] [address] [place] [address] Dr. Nelson Pollock LYMPH # 3.1 103/ul Normal 1.2-3.8 [facility] Comment on above: Performed By: #### C BC #### [facility] [address] [place] [address] Dr. Nelson Pollock Lymphocytes/100 WBC (Bld) 27.2 % Normal 20.5-60.0 [facility] Comment on above: Performed By: #### C BC #### [facility] [address] [place] [address] Dr. Nelson Pollock MANUAL DIFF REQ NO Normal [facility] Comment on above: Performed By: #### C BC #### [facility] [address] [place] [address] Dr. Nelson Pollock MCH (RBC) [Entitic mass] 29.1 pg Normal 25.9-34.0 [facility] Comment on above: Performed By: #### C BC #### [facility] [address] [place] [address] Dr. Nelson Pollock MCHC (RBC) [Mass/Vol] 34.1 g/dL Normal 29.9-35.2 [facility] Comment on above: Performed By: #### C BC #### [facility] [address] [place] [address] Dr. Nelson Pollock MCV (RBC) [Entitic vol] 85.3 fL Normal 80.0-94.0 [facility] Comment on above: Performed By: #### C BC #### [facility] [address] [place] [address] Dr. Nelson Pollock MONO # 1.0 103/ul Critically high 0.3-0.8 [facility] Comment on above: Performed By: #### C BC #### [facility] [address] [address] [address] Nelson Pollock Monocytes/100 WBC (Bld) 9.0 % Normal 1.7-12.0 [facility] Comment on above: Performed By: #### C BC #### [facility] [address] [address] [address] Nelson Pollock NEUT # 6.8 103/ul Critically high 1.4-6.5 [facility] Comment on above: Performed By: #### C BC #### [facility] [address] [address] [address] Nelson Pollock Neutrophils/100 WBC (Bld) 59.8 % Normal 43.0-75.0 [facility] Comment on above: Performed By: #### C BC #### [facility] [address] [place] [address] Dr. Nelson Pollock Platelet mean volume (Bld) [Entitic vol] 10.3 fL Normal 9.5-13.5 [facility] Comment on above: Performed By: #### C BC #### [facility] [address] [place] [address] Dr. Nelson Pollock PLT 196 103/ul Normal 150-450 [facility] Comment on above: Performed By: #### C BC #### [facility] [address] [place] [address] Dr. Nelson Pollock RBC 5.37 106/ul Normal 4.70-6.10 [facility] Comment on above: Performed By: #### C BC #### [facility] [address] [place] [address] Dr. Nelson Pollock WBC 11.3 103/ul Critically high 4.0-11.0 [facility] Comment on above: Performed By: #### C BC #### [facility] [address] [place] [address] Dr. Nelson Pollock PROF CHEM 8 (BAS METB)on Anion gap [Moles/Vol] 10.8 mmol/L Normal [facility] Comment on above: Performed By: #### B JOVANI, HSTROPN ####[facility] [address] [address]Dr. Nelson Pollock Calcium [Mass/Vol] 8.8 mg/dL Normal 8.4-10.2 [facility] Comment on above: Performed By: #### B JOVANI, HSTROPN ####[facility] [address] [place] [address]Dr. Nelson Pollock Chloride [Moles/Vol] 104 mmol/L Normal 98-107 [facility] Comment on above: Performed By: #### B JOVANI, HSTROPN ####[facility] [address] [place], [place] [address]Dr. Nelson Pollock CO2 [Moles/Vol] 26.7 mmol/L Normal 22.0-30.0 [facility] Comment on above: Performed By: #### B JOVANI, HSTROPN ####[facility] [address] [place], [place] [address]Dr. Nelson Pollock Creatinine [Mass/Vol] 0.95 mg/dL Normal 0.66-1.25 [facility] Comment on above: Performed By: #### B JOVANI, HSTROPN ####[facility] [address] [place], [place] [address]Dr. Cloverkusum Phill EGFR-AF PALESTINIAN >60 Normal >=60 [facility] Comment on above: Performed By: #### B JOVANI, HSTROPN ####[facility] [address] [place], [place] [address]Dr. Nelson Phill EGFR-NON AF PALESTINIAN >60 Normal >=60 [facility] Comment on above: Performed By: #### B JOVANI, HSTROPN ####[facility] [address] [place], [place] [address]Dr. Nelson Pollock Glucose [Mass/Vol] 121 mg/dL Critically high 74-106 T [facility] Comment on above: Performed By: #### B JOVANI, HSTROPN ####[facility] [address] [place], [place] [address]Dr. Nelson Pollock Potassium [Moles/Vol] 3.5 mmol/L Normal 3.4-5.0 [facility] Comment on above: Performed By: #### B JOVANI, HSTROPN ####[facility] [address] [place] [address]Dr. Nelson Pollock Sodium [Moles/Vol] 138 mmol/L Normal 137-145 [facility] Comment on above: Performed By: #### B JOVANI, HSTROPN ####[facility] [address] [address]Dr. Nelson Pollock Urea nitrogen [Mass/Vol] 12.0 mg/dL Normal 9.0-20.0 [facility] Comment on above: Performed By: #### B JOVANI, HSTROPN ####[facility] [address] [address]Dr. Nelson Pollock Urea nitrogen/Creatinine [Mass ratio] 12.6 mg/mg Normal [facility] Comment on above: Performed By: #### B JOVANI, HSTROPN ####[facility] [address] [place] [address]Dr. Nelson Pollock TROPONIN, HIGH SENSITIVITYon 05-06-2021 HSTROP 41.0 pg/mL Normal 4.0-42.2 [facility] Comment on above: Result Comment: CUT- OFF POINTS HAVE BEEN ESTABLISHED BASED ON THE FOURTH UNIVERSAL DEFINITIONS OF MYOCARDIAL INFARCTION. THE UPPER REFERENCE LIMIT (URL) OF TROPONIN, DEFINED THE 99TH PERCENTILE OF cTnI DISTRIBUTION IN A REFERENCE POPULATION, HAS BEEN CONFIRMED THE DECISION THRESHOLD FOR DE DIAGNOSIS. Performed By: #### B JOVANI, HSTROPN ####[facility] [address] [address]Dr. Nelson Pollock XR CHEST 1 Von 05-06-2021 [...] CARLTON BRAVO Date: 2021-05-06 20:10 Normal [facility] BNPon 01-06-2021 Natriuretic peptide B (Bld) [Mass/Vol] 268.0 pg/mL Normal <=1,800.0 [facility] Comment on above: Performed By: #### B ULTRASOUND APPLICATIONS SPECIALIST #### [facility] [address] [address] [address] Nelson Pollock CBC AUTO DIFFon 01-06-2021 BASO # 0.1 103/ul Normal 0.0-0.1 [facility] Comment on above: Performed By: #### C BC #### [facility] [address] [place] [address] Dr. Nelson Pollock Basophils/100 WBC (Bld) 0.6 % Normal 0.2-2.0 [facility] Comment on above: Performed By: #### C BC #### [facility] [address] [place] [address] Dr. Nelson Pollock EO # 0.2 103/ul Normal 0.0-0.7 [facility] Comment on above: Performed By: #### C BC #### [facility] [address] [place] [address] Dr. Nelson Pollock Eosinophils/100 WBC (Bld) 1.6 % Normal 0.9-7.0 [facility] Comment on above: Performed By: #### C BC #### [facility] [address] [place] [address] Dr. Nelson Pollock Erythrocyte distribution width (RBC) [Ratio] 13.9 % Normal 11.0-15.0 [facility] Comment on above: Performed By: #### C BC #### [facility] [address] [place] [address] Dr. Nelson Pollock Hematocrit (Bld) [Volume fraction] 46.4 % Normal 42.0-54.0 [facility] Comment on above: Performed By: #### C BC #### [facility] [address] [place] [address] Dr. Nelson Pollock Hemoglobin (Bld) [Mass/Vol] 15.5 g/dL Normal 14.0-18.0 [facility] Comment on above: Performed By: #### C BC #### [facility] [address] [place] [address] Dr. Nelson Pollock IG # 0.04 10e3/ul Critically high 0.00-0.03 [facility] Comment on above: Performed By: #### C BC #### [facility] [address] [place] [address] Dr. Nelsno Pollock IG % 0.4 % Normal 0.0-0.5 [facility] Comment on above: Performed By: #### C BC #### [facility] [address] [place] [address] Dr. Nelson Pollock LYMPH # 2.3 103/ul Normal 1.2-3.8 [facility] Comment on above: Performed By: #### C BC #### [facility] [address] [place] [address] Dr. Nelson Pollock Lymphocytes/100 WBC (Bld) 22.8 % Normal 20.5-60.0 [facility] Comment on above: Performed By: #### C BC #### [facility] [address] [place] [address] Dr. Nelson Pollock MANUAL DIFF REQ NO Normal [facility] Comment on above: Performed By: #### C BC #### [facility] [address] [place] [address] Dr. Nelson Pollock MCH (RBC) [Entitic mass] 28.3 pg Normal 25.9-34.0 [facility] Comment on above: Performed By: #### C BC #### [facility] [address] [place] [address] Dr. Nelson Pollock MCHC (RBC) [Mass/Vol] 33.4 g/dL Normal 29.9-35.2 [facility] Comment on above: Performed By: #### C BC #### [facility] [address] [place] [address] Dr. Nelson Pollock MCV (RBC) [Entitic vol] 84.7 fL Normal 80.0-94.0 [facility] Comment on above: Performed By: #### C BC #### [facility] [address] [place] [address] Dr. Nelson Pollock MONO # 0.8 103/ul Normal 0.3-0.8 [facility] Comment on above: Performed By: #### C BC #### [facility] [address] [place] [address] Dr. Nelson Pollock Monocytes/100 WBC (Bld) 8.0 % Normal 1.7-12.0 [facility] Comment on above: Performed By: #### C BC #### [facility] [address] [place] [address] Dr. Nelson Pollock NEUT # 6.8 103/ul Critically high 1.4-6.5 [facility] Comment on above: Performed By: #### C BC #### [facility] [address] [place] [address] Dr. Nelson Pollock Neutrophils/100 WBC (Bld) 66.6 % Normal 43.0-75.0 [facility] Comment on above: Performed By: #### C BC #### [facility] [address] [place] [address] Dr. Nelson Pollock Platelet mean volume (Bld) [Entitic vol] 10.6 fL Normal 9.5-13.5 [facility] Comment on above: Performed By: #### C BC #### [facility] [address] [place] [address] Dr. Nelson Pollock PLT 201 103/ul Normal 150-450 [facility] Comment on above: Performed By: #### C BC #### [facility] [address] [place] [address] Dr. Nelson Pollock RBC 5.48 106/ul Normal 4.70-6.10 [facility] Comment on above: Performed By: #### C BC #### [facility] [address] [place] [address] Dr. Nelson Pollock WBC 10.2 103/ul Normal 4.0-11.0 [facility] Comment on above: Performed By: #### C BC #### [facility] [address] [place] [address] Dr. Nelson Pollock PROF 14(COMP METB)on 021 Albumin [Mass/Vol] 3.8 g/dL Normal 3.5-5.0 [facility] Comment on above: Performed By: #### C JOVANI, HSTROPN #### [facility] [address] [place] [address] Dr. Nelson Pollock Albumin/Globulin [Mass ratio] 1.2 {ratio} Normal [facility] Comment on above: Performed By: #### C JOVANI, HSTROPN #### [facility] [address] [place] [address] Dr. Nelson Pollock ALP [Catalytic activity/Vol] 73 U/L Normal 38-126 [facility] Comment on above: Performed By: #### C JOVANI, HSTROPN #### [facility] [address] [place] [address] Dr. Nelson Pollock ALT [Catalytic activity/Vol] 20 U/L Critically low 21-72 [facility] Comment on above: Performed By: #### C JOVANI, HSTROPN #### [facility] [address] [place] [address] Dr. Nelson Pollock Anion gap [Moles/Vol] 11.0 mmol/L Normal [facility] Comment on above: Performed By: #### C JOVANI, HSTROPN #### [facility] [address] [place] [address] Dr. Nelson Pollock AST [Catalytic activity/Vol] 18 U/L Normal 17-59 [facility] Comment on above: Performed By: #### C JOVANI, HSTROPN #### [facility] [address] [place] [address] Dr. Nelson Pollock Bilirubin [Mass/Vol] 1.7 mg/dL Critically high 0.2-1.3 [facility] Comment on above: Performed By: #### C JOVANI, HSTROPN #### [facility] [address] [address] [address] Nelson Pollock Calcium [Mass/Vol] 8.9 mg/dL Normal 8.4-10.2 [facility] Comment on above: Performed By: #### C MP, HSTROPN #### [facility] [address] [address] [address] Nelson Pollock Chloride [Moles/Vol] 105 mmol/L Normal 98-107 [facility] Comment on above: Performed By: #### C MP, HSTROPN #### [facility] [address] [address] [address] Nelson Pollock CO2 [Moles/Vol] 26.5 mmol/L Normal 22.0-30.0 [facility] Comment on above: Performed By: #### C MP, HSTROPN #### [facility] [address] [place] [address] Dr. Nelson Pollock Creatinine [Mass/Vol] 0.82 mg/dL Normal 0.66-1.25 [facility] Comment on above: Performed By: #### C MP, HSTROPN #### [facility] [address] [address] [address] Nelson Pollock EGFR-AF PALESTINIAN >60 Normal >=60 [facility] Comment on above: Performed By: #### C MP, HSTROPN #### [facility] [address] [place] [address] Dr. Nelson Pollock EGFR-NON AF PALESTINIAN >60 Normal >=60 [facility] Comment on above: Performed By: #### C MP, HSTROPN #### [facility] [address] [place] [address] Dr. Nelson Pollock Globulin (S) [Mass/Vol] 3.3 g/dL Normal [facility] Comment on above: Performed By: #### C MP, HSTROPN #### [facility] [address] [place] [address] Dr. Nelson Pollock Glucose [Mass/Vol] 87 mg/dL Normal 74-106 [facility] Comment on above: Performed By: #### C MP, HSTROPN #### [facility] [address] [place] [address] Dr. Nelson Pollock Potassium [Moles/Vol] 3.5 mmol/L Normal 3.4-5.0 [facility] Comment on above: Performed By: #### C MP, HSTROPN #### [facility] [address] [place] [address] Dr. Nelson Pollock Protein [Mass/Vol] 7.1 g/dL Normal 6.1-8.2 [facility] Comment on above: Performed By: #### C MP, HSTROPN #### [facility] [address] [place] [address] Dr. Nelson Pollock Sodium [Moles/Vol] 139 mmol/L Normal 137-145 [facility] Comment on above: Performed By: #### C MP, HSTROPN #### [facility] [address] [place] [address] Dr. Nelson Pollock Urea nitrogen [Mass/Vol] 13.0 mg/dL Normal 9.0-20.0 [facility] Comment on above: Performed By: #### C MP, HSTROPN #### [facility] [address] [place] [address] Dr. Nelson Pollock Urea nitrogen/Creatinine [Mass ratio] 15.9 mg/mg Normal [facility] Comment on above: Performed By: #### C MP, HSTROPN #### [facility] [address] [place] [address] Dr. Nelson Pollock TROPONIN, HIGH SENSITIVITYon 01-06-2021 HSTROP 43.4 pg/mL Critically high 4.0-42.2 [facility] Comment on above: Result Comment: CUT- OFF POINTS HAVE BEEN ESTABLISHED BASED ON THE FOURTH UNIVERSAL DEFINITIONS OF MYOCARDIAL INFARCTION. THE UPPER REFERENCE LIMIT (URL) OF TROPONIN, DEFINED THE 99TH PERCENTILE OF cTnI DISTRIBUTION IN A REFERENCE POPULATION, HAS BEEN CONFIRMED THE DECISION THRESHOLD FOR DE DIAGNOSIS. Performed By: #### C MP, HSTROPN #### [facility] [address] [place] [address] Dr. Nelson Pollock XR CHEST 1 Von [...] JASKARAN CARRERA Date: 2021-01-06 11:24 Normal [facility] BASIC METABOLIC PANELon 06-18 Calcium [Mass/Vol] 8.5 mg/dL Low 8.6-10.3 [facility] Comment on above: Order Comment: No: D o not add to previous draw Performed By: #### 0 0071, [id number] #### [facility] [address] [place] [address], [facility] Chloride [Moles/Vol] 108 mmol/L High 98-107 [facility] Comment on above: Order Comment: No: D o not add to previous draw Performed By: #### 0 0071, 93346 #### [facility] [address] [place] [address], [place] CO2 [Moles/Vol] 27 mmol/L Normal 21-31 [facility] Comment on above: Order Comment: No: D o not add to previous draw Performed By: #### 0 0071, [id number] #### [facility] [address] [place] [address], [place] Creatinine [Mass/Vol] 0.89 mg/dL Normal 0.70-1.30 [facility] Comment on above: Order Comment: No: D o not add to previous draw Performed By: #### 0 0071, 86764 #### [facility] [address] [place] [address], [place] GFR/1.73 sq M predicted among blacks MDRD (S/P/Bld) [Vol rate/Area] mL/min/{1.73_m2} Normal >60 [facility] Comment on above: Order Comment: No: D o not add to previous draw Result Comment: Calc ulation may not be valid for patients over 70 years Performed By: #### 0 0071, [id number] #### [facility] [address] [place] [address], [place] GFR/1.73 sq M predicted among non-blacks MDRD (S/P/Bld) [Vol rate/Area] mL/min/{1.73_m2} Normal >60 [facility] Comment on above: Order Comment: No: D o not add to previous draw Result Comment: Calc ulation may not be valid for patients over 70 years Performed By: #### 0 0071, 18655 #### [facility] [address] [place] [address], [place] Glucose [Mass/Vol] 78 mg/dL Normal 70-[address] [facility] Comment on above: Order Comment: No: D o not add to previous draw Performed By: #### 0 0071, 63730 #### [facility] [address] [place] [address], [place] Potassium [Moles/Vol] 4.0 mmol/L Normal 3.5-5.1 [facility] Comment on above: Order Comment: No: D o not add to previous draw Performed By: #### 0 0071, [id number] #### [facility] [address] [place] [address], [place] Sodium [Moles/Vol] 144 mmol/L Normal 136-[address] [facility] Comment on above: Order Comment: No: D o not add to previous draw Performed By: #### 0 0071, 44304 #### [facility] [address] [place] [address], [place] Urea nitrogen [Mass/Vol] 21 mg/dL Normal 7-25 [facility] Comment on above: Order Comment: No: D o not add to previous draw Performed By: #### 0 0071, 96863 #### [facility] [address] [place] [address], [place] Calcium [Mass/Vol] 8.3 mg/dL Low 8.6-10.3 [facility] Comment on above: Performed By: #### 0 0071, 71498, 86573 #### [facility] [address] [place] [address], [place] Chloride [Moles/Vol] 108 mmol/L High 98-107 [facility] Comment on above: Performed By: #### 0 0071, 14084, 80011 #### [facility] [address] [place] [address], [place] CO2 [Moles/Vol] 24 mmol/L Normal 21-31 [facility] Comment on above: Performed By: #### 0 0071, 26121, 18576 #### [facility] [address] [place] [address], [place] Creatinine [Mass/Vol] 0.90 mg/dL Normal 0.70-1.30 [facility] Comment on above: Performed By: #### 0 0071, 73242, 22534 #### [facility] [address] [place] [address], [place] GFR/1.73 sq M predicted among blacks MDRD (S/P/Bld) [Vol rate/Area] mL/min/{1.73_m2} Normal >60 [facility] Comment on above: Result Comment: Calc ulation may not be valid for patients over 70 years Performed By: #### 0 0071, 86017, 86529 #### [facility] [address] [place] [address], [place] GFR/1.73 sq M predicted among non-blacks MDRD (S/P/Bld) [Vol rate/Area] mL/min/{1.73_m2} Normal >60 [facility] Comment on above: Result Comment: Calc ulation may not be valid for patients over 70 years Performed By: #### 0 0071, 82616, 24611 #### [facility] [address] [place] [address], [place] Glucose [Mass/Vol] 101 mg/dL High 70-[address] [facility] Comment on above: Performed By: #### 0 0071, 51726, 02145 #### [facility] [address] [place] [address], [place] Potassium [Moles/Vol] 3.5 mmol/L Normal 3.5-5.1 [facility] Comment on above: Performed By: #### 0 0071, 16686, 33470 #### [facility] [address] [place] [address], [place] Sodium [Moles/Vol] 141 mmol/L Normal 136-[address] [facility] Comment on above: Performed By: #### 0 0071, 06186, 95566 #### [facility] [address] [place] [address], [place] Urea nitrogen [Mass/Vol] 24 mg/dL Normal 7-25 [facility] Comment on above: Performed By: #### 0 0071, 09514, 98350 #### [facility] [address] [place] [address], [place] CBC COMPLETE BLOOD COUNTon 0 - Erythrocyte distribution width (RBC) [Ratio] 13.8 % Normal 11.5-15.0 [facility] Comment on above: Order Comment: No: D o not add to previous draw Performed By: #### 5 0608 #### [facility] [address] [place] [address], [place] Hematocrit (Bld) [Volume fraction] 37.7 % Low 39.0-50.0 [facility] Comment on above: Order Comment: No: D o not add to previous draw Performed By: #### 5 0608 #### [facility] [address] [place] [address], [facility] Hemoglobin (Bld) [Mass/Vol] 12.9 g/dL Low 13.0-17.0 [facility] Comment on above: Order Comment: No: D o not add to previous draw Performed By: #### 5 0608 #### [facility] [address] MCH (RBC) [Entitic mass] 29.1 pg Normal 27.0-33.0 [facility] Comment on above: Order Comment: No: D o not add to previous draw Performed By: #### 5 0608 #### [facility] [address] MCHC (RBC) [Mass/Vol] 34.2 g/dL Normal 32.0-35.0 [facility] Comment on above: Order Comment: No: D o not add to previous draw Performed By: #### 5 0608 #### [facility] [address] [facility] [place] [place] [address], [facility] MCV (RBC) [Entitic vol] 85.1 fL Normal 82.0-98.0 [facility] Comment on above: Order Comment: No: D o not add to previous draw Performed By: #### 5 0608 #### [facility] [address] [facility]. [address] Nucleated RBC/100 WBC (Bld) [Ratio] 0 % Normal 0-0 [facility] Comment on above: Order Comment: No: D o not add to previous draw Performed By: #### 5 0608 #### [facility] [address] [facility] [place] [place] [address], [facility] PLAT CNT 198 10*3/uL Normal 150-400 [facility] Comment on above: Order Comment: No: D o not add to previous draw Performed By: #### 5 0608 #### [facility] [address] [place] [address], [facility] RBC (Bld) [#/Vol] 4.43 10*6/uL Normal 4.20-5.70 [facility] Comment on above: Order Comment: No: D o not add to previous draw Performed By: #### 5 0608 #### [facility] [address] [place] [address], [facility] WBC (Bld) [#/Vol] 10.40 10*3/uL Normal 4.00-10.60 [facility] Comment on above: Order Comment: No: D o not add to previous draw Performed By: #### 5 0608 #### [facility] [address] [facility] [address] LIPID PROFILEon 07-02-2020 Cholesterol [Mass/Vol] 119 mg/dL Low 120-200 [facility] Comment on above: Result Comment: CHOL ESTEROL REFERENCE RANGE: 20 YEARS AND OLDER CARDIOVASCULAR RISK Less than 200 mg/dl Low Risk 200 to 239 mg/dl Borderline Risk 240 mg/dl and greater High Risk Performed By: #### 0 0071, 56272, 31575 #### [facility] [address] [facility]. [address] Cholesterol in HDL [Mass/Vol] 37 mg/dL Normal 23-92 [facility] Comment on above: Result Comment: Slig ht variation in normal range could be due to gender and/or age. HDL CHOLESTEROL REFERENCE RANGE: 20 years and older Cardiovascular Risk > or =60 mg/dL Desirable 40 TO 59 mg/dL Low Risk <40 mg/dL High Risk Performed By: #### 0 0071, 03151, 84297 #### [facility] [address] [place] [address], [facility] Cholesterol in LDL [Mass/Vol] 68 mg/dL Normal 0-130 [facility] Comment on above: Result Comment: LDL IS A CALCULATION LDL IS ONLY VALID IF THE TRIG IS LESS THAN 400. Performed By: #### 0 0071, 33460, 47626 #### [facility] [address] [place] [address], [facility] Cholesterol.total/Ch olesterol in HDL [Mass ratio] 3.2 {ratio} Normal 0.0-4.5 [facility] Comment on above: Performed By: #### 0 0071, 15621, 14437 #### [facility] [address] [place] [address], [facility] NON-HDL CHOLESTEROL 82 mg/dL Normal [facility] Comment on above: Performed By: #### 0 0071, 07574, 19266 #### [facility] [address] [facility] [address] Triglyceride [Mass/Vol] 71 mg/dL Normal 40-149 [facility] Comment on above: Result Comment: TRIG LYCERIDE REFERENCE RANGE: 20 YEARS AND OLDER CARDIOVASCULAR RISK LESS THAN 150 mg/dl LOW RISK 150 TO 199 mg/dl BORDERLINE RISK 200 mg/dl AND GREATER HIGH RISK Performed By: #### 0 0071, 78564, 72603 #### [facility] [address] [facility] [place] [place] [address], [facility] VLDL CHOL 14 mg/dL Normal 0-40 [facility] Comment on above: Performed By: #### 0 0071, 10472, 60871 #### [facility] [address] [facility] [place] [address], [facility] MAGNESIUM BLOODon 07-02-2020 Magnesium [Mass/Vol] 1.5 mg/dL Low 1.9-2.7 [facility] Comment on above: Order Comment: No: D o not add to previous draw Performed By: #### 0 0071, 19886 #### [facility] [address] [place] [address], [facility] Magnesium [Mass/Vol] 1.3 mg/dL Low 1.9-2.7 [facility] Comment on above: Performed By: #### 1 0070, 87855 #### [facility] [address] [place] [address], [facility] TROPONIN-Ion 07-02-2020 Troponin I.cardiac [Mass/Vol] 0.03 ng/mL Normal 0.00-0.04 [facility] Comment on above: Order Comment: No: D o not add to previous draw Result Comment: REFE RENCE RANGES: 0.00 - 0.04 ng/ml NORMAL 0.05 - 0.50 ng/ml INDETERMINATE > 0.50 ng/ml CONSISTENT WITH AN M.I. Performed By: #### 0 0071, 10826, 99568 #### [facility] [address] [place] [address], [facility] Troponin I.cardiac [Mass/Vol] 0.03 ng/mL Normal 0.00-0.04 [facility] Comment on above: Order Comment: No: D o not add to previous draw Result Comment: REFE RENCE RANGES: 0.00 - 0.04 ng/ml NORMAL 0.05 - 0.50 ng/ml INDETERMINATE > 0.50 ng/ml CONSISTENT WITH AN M.I. Performed By: #### 1 0070, 59948 #### [facility] [address] [facility]. [address] UFH HEPARIN ASSAYon 07-03-19 UNFRACTIONATED HEPARIN 0.63 IU/mL Normal 0.30-0.70 [facility] Comment on above: Result Comment: Danica roxaban and Apixaban will interfere with the anti Xa assay used to monitor UFH and LMWH. Performed By: #### 5 0608 #### [facility] [address] [facility] [place] [place] [address], [facility] UNFRACTIONATED HEPARIN 0.48 IU/mL Normal 0.30-0.70 [facility] Comment on above: Order Comment: No: D o not add to previous draw Result Comment: Danica roxaban and Apixaban will interfere with the anti Xa assay used to monitor UFH and LMWH. Performed By: #### 5 0608 #### [facility] [address] UNFRACTIONATED HEPARIN 0.34 IU/mL Normal 0.30-0.70 [facility] Comment on above: Result Comment: Danica roxaban and Apixaban will interfere with the anti Xa assay used to monitor UFH and LMWH. Performed By: #### 5 0608 #### [facility] [address] APTTon 07-01-2020 aPTT Coag (Bld) [Time] 39.8 s High 25.0-35.0 [facility] Comment on above: Order Comment: [...] PURPOSE. Performed By: #### 5 0608 #### [facility] [address] [facility]. [address] BASIC METABOLIC PANELon 06-18 Calcium [Mass/Vol] 8.6 mg/dL Normal 8.6-10.3 [facility] Comment on above: Order Comment: No: D o not add to previous draw Performed By: #### 5 0608 #### [facility] [address] [facility] [place] [place] [address], [facility] Chloride [Moles/Vol] 104 mmol/L Normal 98-107 [facility] Comment on above: Order Comment: No: D o not add to previous draw Performed By: #### 5 0608 #### [facility] [address] [facility] [place] [address], [facility] CO2 [Moles/Vol] 27 mmol/L Normal 21-31 [facility] Comment on above: Order Comment: No: D o not add to previous draw Performed By: #### 5 0608 #### [facility] [address] [place] [address], [facility] Creatinine [Mass/Vol] 0.99 mg/dL Normal 0.70-1.30 [facility] Comment on above: Order Comment: No: D o not add to previous draw Performed By: #### 5 0608 #### [facility] [address] [place] [address], [facility] GFR/1.73 sq M predicted among blacks MDRD (S/P/Bld) [Vol rate/Area] mL/min/{1.73_m2} Normal >60 [facility] Comment on above: Order Comment: No: D o not add to previous draw Result Comment: Calc ulation may not be valid for patients over 70 years Performed By: #### 5 0608 #### [facility] [address] [place] [address], [facility] GFR/1.73 sq M predicted among non-blacks MDRD (S/P/Bld) [Vol rate/Area] mL/min/{1.73_m2} Normal >60 [facility] Comment on above: Order Comment: No: D o not add to previous draw Result Comment: Calc ulation may not be valid for patients over 70 years Performed By: #### 5 0608 #### [facility] [address] [place] [address], [place] Glucose [Mass/Vol] 126 mg/dL High 70-[address] [facility] Comment on above: Order Comment: No: D o not add to previous draw Performed By: #### 5 0608 #### [facility] [address] [place] [address], [place] Potassium [Moles/Vol] 2.9 mmol/L Low 3.5-5.1 [facility] Comment on above: Order Comment: No: D o not add to previous draw Performed By: #### 5 0608 #### [facility] [address] [place] [address], [facility] Sodium [Moles/Vol] 141 mmol/L Normal 136-[address] [facility] Comment on above: Order Comment: No: D o not add to previous draw Performed By: #### 5 0608 #### [facility] [address] [place] [address], [facility] Urea nitrogen [Mass/Vol] 25 mg/dL Normal 7-25 [facility] Comment on above: Order Comment: No: D o not add to previous draw Performed By: #### 5 0608 #### [facility] [address] [place] [address], [facility] CBC COMPLETE BLOOD COUNTon 0 07-01-2020 Erythrocyte distribution width (RBC) [Ratio] 13.7 % Normal 11.5-15.0 [facility] Comment on above: Order Comment: No: D o not add to previous draw Performed By: #### 5 0608 #### [facility] [address] [place] [address], [facility] Hematocrit (Bld) [Volume fraction] 39.8 % Normal 39.0-50.0 [facility] Comment on above: Order Comment: No: D o not add to previous draw Performed By: #### 5 0608 #### [facility] [address] [place] [address], [facility] Hemoglobin (Bld) [Mass/Vol] 13.7 g/dL Normal 13.0-17.0 [facility] Comment on above: Order Comment: No: D o not add to previous draw Performed By: #### 5 0608 #### [facility] [address] [place] [address], [facility] MCH (RBC) [Entitic mass] 28.7 pg Normal 27.0-33.0 [facility] Comment on above: Order Comment: No: D o not add to previous draw Performed By: #### 5 0608 #### [facility] [address] MCHC (RBC) [Mass/Vol] 34.4 g/dL Normal 32.0-35.0 [facility] Comment on above: Order Comment: No: D o not add to previous draw Performed By: #### 5 0608 #### [facility] [address] [place] [address], [facility] MCV (RBC) [Entitic vol] 83.3 fL Normal 82.0-98.0 [facility] Comment on above: Order Comment: No: D o not add to previous draw Performed By: #### 5 0608 #### [facility] [address] [place] [address], [facility] Nucleated RBC/100 WBC (Bld) [Ratio] 0 % Normal 0-0 [facility] Comment on above: Order Comment: No: D o not add to previous draw Performed By: #### 5 0608 #### [facility] [address] [facility] [place] [place] [address], [facility] PLAT CNT 184 10*3/uL Normal 150-400 [facility] [facility] Comment on above: Order Comment: No: D o not add to previous draw Performed By: #### [id number] #### [facility] [address] [facility] [place] [place] [address], [facility] RBC (Bld) [#/Vol] 4.78 10*6/uL Normal 4.20-5.70 [facility] Comment on above: Order Comment: No: D o not add to previous draw Performed By: #### [id number] #### [facility] [address] [facility] [place] [place] [address], [facility] WBC (Bld) [#/Vol] 9.34 10*3/uL Normal 4.00-10.60 [facility] Comment on above: Order Comment: No: D o not add to previous draw Performed By: #### [id number] #### [facility] [address] PROTHROMBIN TIMEon INR Coag (PPP) [Relative time] 1.12 {INR} Normal 0.91-1.16 [facility] Comment on above: Order Comment: [...] 1995;108:[id number]. Performed By: #### [id number] #### [facility] [address] PT Coag (PPP) [Time] 14.4 s Normal 12.3-14.8 [facility] Comment on above: Order Comment: No: D o not add to previous draw Result Comment: ALL RESULTS MUST BE INTERPRETED WITH RESPECT TO BLOOD DRAWING ARTIFACT OR DILUTION ERROR OF ANTICOAGULANT AT THE TIME OF SAMPLING. Performed By: #### [id number] #### [facility] [address] [place] [address], [facility] TROPONIN-Ion 07-01-2020 Troponin I.cardiac [Mass/Vol] 0.02 ng/mL Normal 0.00-0.04 [facility] Comment on above: Order Comment: No: D o not add to previous draw Result Comment: REFE RENCE RANGES: 0.00 - 0.04 ng/ml NORMAL 0.05 - 0.50 ng/ml INDETERMINATE > 0.50 ng/ml CONSISTENT WITH AN M.I. Performed By: #### [id number] #### [facility] [address] [place] [address], [facility] UFH HEPARIN ASSAYon 07-02-19 UNFRACTIONATED HEPARIN <0.10 Critically low 0.30-0.70 [facility] Comment on above: Result Comment: [place] roxaban and Apixaban will interfere with the anti Xa assay used to monitor UFH and LMWH. RESULTS CHECKED AND CALLED. ACCURATELY READ BACK BY Jesus Manuel Velez RN at 2148. Performed By: #### [id number] #### [facility] [address] [place] [address], [facility] Vital Signs Date Time Vital Sign Value Performing Clinician Faci lity 05-27-2023 15:13-0500 Body height 162.6 cm Scott Tai MD Work Phone: [facility] 05-27-2023 15:13-0500 Body mass index (BMI) [Ratio] 26.61 kg/m2 Scott Tai MD Work Phone: [facility] 05-27-2023 15:13-0500 Body weight 70.31 kg Scott Tai MD Work Phone: [facility] 05-27-2023 15:13-0500 Diastolic blood pressure 84 mm[Hg] Scott Tai MD Work Phone: [facility] 05-27-2023 15:13-0500 Heart rate 72 /min Scott Tai MD Work Phone: [facility] 05-27-2023 15:13-0500 SaO2% (BldA) [Mass fraction] 96 % Scott Tai MD Work Phone: [facility] 05-27-2023 15:13-0500 Systolic blood pressure 138 mm[Hg] Scott Tai MD Work Phone: [facility] Healthcare Encounters Encounter Date Encounter Type Care Provider Facility Start: 01-13-2024 End: 01-13-2024 ambulatory SCOTT TAI Not Available Start: 10-05-2023 End: 10-05-2023 ambulatory [facility] Start: 09-16-2023 End: 09-16-2023 ambulatory SCOTT TAI Not Available Start: 07-03-2023 End: 07-03-2023 ambulatory SCOTT TAI Not Available Start: 06-05-2023 End: 06-05-2023 ambulatory RONNIE OLVERA Not Available Start: 05-27-2023 End: 05-27-2023 Transitional care manage srvc 14 day discharge Scott Tai MD Work Phone: [facility] Comment on above: Benign essential hyp ertension (CMS/HCC) (Primary Dx); Chronic systolic CHF (congestive heart failure), NYHA class 2 (CMS/HCC); Atherosclerosis of p[place] coronary artery of [place] heart without angina pectoris (CMS/HCC); Right cervical radiculopathy Start: 05-27-2023 End: 05-27-2023 ambulatory SCOTT TAI Not Available Start: 05-27-2023 Bamboo flowsheet Scott salguero MD Work Phone: [facility] Start: 05-27-2023 Bamboo flowsheet Scott salguero MD Work Phone: [facility] Start: 04-17-2023 End: 04-17-2023 ambulatory [facility] Start: 03-16-2023 End: 03-16-2023 ambulatory SCOTT TAI Not Available Start: 02-19-2023 End: 02-19-2023 ambulatory CARLA SESAY [facility] Start: 12-09-2022 End: 12-09-2022 ambulatory CELIA DURHAM [facility] Start: 04-22-2022 End: 04-22-2022 ambulatory Driss Smith Other [facility] Other Start: 04-22-2022 Telephone encounter Driss Sharma [facility] Start: 12-19-2021 End: 12-19-2021 ambulatory Driss Smith Other [facility] Other Start: 12-19-2021 Telephone encounter Driss Sharma [facility] Start: 07-26-2021 End: 07-26-[address] PRAVEEN MEADOWS Facility:[facility] Start: 05-06-2021 End: 05-06-[address] SCOTT TAI Facility:[facility] Start: 01-06-2021 End: 01-06-[address] JASKARAN CARRERA Facility:[facility] Start: 07-01-2020 End: 07-02-2020 Patient encounter procedure VIDAL ODOM Facility:[facility] Start: 06-28-2018 End: 06-29-2018 Patient encounter procedure DEFAULT PHYSICIAN Facility:[facility] Procedures Date Procedure Procedure Detail Performing Clinician Start: 10-23-2022 History of coronary artery bypass grafting History of coronary artery bypass graft Scott Tai MD Work Phone: Start: 07-02-2020 MEASUREMENT OF CARDIAC TOTAL ACTIVITY, EXTERNAL APPROACH SAMER J DYAN Start: 07-02-2020 ULTRASONOGRAPHY OF RIGHT AND LEFT HEART, TRANSESOPHAGEAL SAMER J DYAN Plan of Treatment Date Care Activity Detail Author Start: 01-09-2024 Medicare Annual Well ness (AWV) Medicare Annual Wellness (AWV) [facility] Start: 09-16-2023 End: 09-16-2023 Patient encounter procedure 09/16/2023 8:30 AM EDT Office Visit [facility] [address] [facility] [address] [place] [id number] Scott Tai MD [address] [place] [address] [place] [address] [facility] Start: 07-03-2023 End: 07-03-2023 Patient encounter procedure 07/03/2023 9:30 AM EDT Office Visit [facility] [address] [place] [address] [place] [id number] Scott Tai MD [address] [place] [address] [place] [address] [facility] Start: 05-27-2023 End: 05-27-2023 Patient encounter procedure 05/27/2023 3:30 PM EST Office Visit [facility] [address] [facility] [address] [place] [phone] Scott Tai MD [address] [place] [address] [place] [address] Arrived [facility] Comment on above: Arrived Immunizations Immunization Date Immunization Notes Care Provider Fa cili 05-21-2018 zoster vaccine recombinant Scott Tai MD Work Phone: [facility] 10-13-2017 tetanus toxoid, redu zuleika diphtheria toxoid, and acellular pertussis vaccine, adsorbed Scott Tai MD Work Phone: [facility] 10-28-2012 zoster vaccine, live Scott Tai MD Work Phone: [facility] Payers Date Payer Category Payer Medicare ANTHEM MEDICARE ADVANTAGE AN[employer]M MEDICARE ADVANTAGE [id number] 2017-Present [address] [place] [address] [id number] 1959 Unknown [id number] 1942 Unknown [id number] 1942 Unknown [id number] 1942 Unknown [id number] 1942 Unknown [id number] 1942 Unknown [id number] 1942 Unknown [id number] 9 1942 Unknown [id number] 9 1942 Unknown [id number] 9 1942 Unknown [id number] [id number] 9 1942 Unknown [id number] 9 1942 Unknown [id number] 9 Unknown Social History Date Type Detail Facility Start: 12-02-2022 End: 01-08-2023 Sex Assigned At [facility] Other Start: 10-23-2022 Tobacco smoking status [facility] Never smoked tobacco [facility] Start: 10-23-2022 Tobacco use and exposure Smokeless tobacco non-user [facility] Start: 03-16-2023 End: 05-27-2023 Alcohol intake Ex-drinker (finding) [facility] Start: 12-02-2022 End: 01-08-2023 History of Social function [facility] Within the last year , have you been afraid of your partner or ex-partner? No [facility] Frequency of Communication with Friends and Family Not on file [facility] Are you now , , , , never or living with a partner? [facility] How often to you hav e a drink containing alcohol? Never [facility] Do you feel stress - tense, restless, nervous, or anxious, or unable to sleep at night because your mind is troubled all the time - these days [OSQ] Not at all [facility] (I/We) worried wheth er (my/our) food would run out before (I/we) got money to buy more. Never true [facility] Start: 11-25-2022 Alcohol Comment Caffeine intake : 1-2 cups per day coffee [facility] Start: 1940 Sex Assigned At Not on file [facility] Clinical Notes 04-22-2022 to 10-05-2023 Scott Tai MD - 05/27/2023 3:30 PM EST Note Date & Type Note Facility 10-05-2023 Note Cardiology Clinic No te Subjective Davina Cabello is a 83 y.o. year old male patient with past medical history of CAD status post CABG, heart failure reduced ejection fraction, hypertension, and hyperlipidemia seen in follow-up. Patient here for 6 mo follow up CAD, HFrEF, hypertension, and hyperlipidemia. He was admitted to [facility] in May 2023 for acute hypotension. Lisinopril was reduced to 20mg daily, and carvedilol was reduced to 6.25mg bid. Spironolactone was stopped. Patient states he feels good. Patient adamantly denies any cardiac complaints or concerns. Patient denies any chest pain or shortness of breath. Patient denies any lower extremity edema, orthopnea, or proximal nocturnal dyspnea. No near-syncope or syncope. No dizziness or lightheadedness. Patient Active Problem List Diagnosis Cardiovascular stress [...] edema or palpitations Review of Systems Cardiovascular: Positive for leg swelling (minimal). Hematologic/Lymphatic: Bruises/bleeds easily. All other systems reviewed and are negative. Objective Visit Vitals Smoking Status Former Physical Exam General: Awake, alert, NAD Neck: [...] Rfl: spironolactone (Aldactone) 25 mg tablet, Take 1 tablet (25 mg) by mouth in the morning., Disp: 90 tablet, Rfl: 3 Recent Labs 10/20/2022 WBC 13.1, hemoglobin 14.3, [...] 40% Mild DD RV normal size and sys (more content not included)... [facility] 05-27-2023 History of Present illness Narrative HPI Follow-up Additional comments: Went to [facility] ER 05/22/23 was kept for observation dx: hypotension coreg and lisinopril doses decreased and advised to stop spironolactone Last edited by Viviana Martini LPN on 05/27/2023 3:27 PM. Subjective Patient ID: Skip Cabello is a 82 y.o. male who presents for Follow-up (Went to [facility] ER 05/22/23 was kept for observation dx: hypotension coreg and lisinopril doses decreased and advised to stop spironolactone) and Arm Pain. Flowsheet Row Patient Outreach from 05/26/2023 in [facility] with Shu Thursday, [place] Discharge Information ED or Hospital Discharge? ED Patient has been contacted within 1 week of being seen in the ED Yes Discharge Date 05/22/23 Discharge Hospital [facility] Discharged To: Home Setting Engagement Call Start Time 813 Medications Discharge medications reviewed and reconciled from hospital? Yes Is the patient having any side effects they believe may be caused by any medication additions or changes? No Does the patient have all medications ordered at discharge? Yes Is the patient taking all medications as directed (includes completed medication regime)? Yes Appointments Does the patient have a primary care provider? Yes Has the patient kept scheduled appointments due by today? Yes Self Management Patient Teaching Does the patient have access to their discharge instructions? Yes What is the patient's perception of their health status since discharge? Improving Is the patient/caregiver able to teach back the hierarchy of who to call/visit for symptoms/problems? PCP, Specialist, Home Health nurse, Urgent Care, ED, 911 Yes Wrap Up Is the patient/caregiver familiar with Advance Care Planning? Yes Would the patient like more information on Advance Care Planning? No Call End Time 08 Pt has been checking b/p at home and states it has been normal since hospital discharge and med changes Complains of right arm pain started 2 weeks ago denies injury Denies exacerbating factors Current Outpatient Medications on File Prior to Visit Medication Sig Dispense Refill aspirin 81 MG EC tablet take 1 tablet (81MG) by oral route every day Oral atorvastatin (Lipitor) 40 MG tablet TAKE 1 TABLET BY MOUTH EVERYDAY AT BEDTIME 90 tablet 3 carvedilol (Coreg) 12.5 MG tablet Take 12.5 mg by mouth in the morning and 12.5 mg in the evening. Take with meals. clopidogrel (Plavix) 75 MG tablet 1 (one) time each day at the same time. isosorbide mononitrate ER (Imdur) 30 MG 24 hr tablet TAKE 1 TABLET BY MOUTH EVERY DAY for 90 lisinopril 20 MG tablet Take 20 mg by mouth in the morning. Magnesium 400 MG capsule Take 1 capsule by mouth 1 (one) time each day. Multiple Vitamins-Minerals (PRESERVISION AREDS 2 PO) Take 1 tablet by mouth in the morning. nitroglycerin (Nitrostat) 0.4 MG SL tablet pancrelipase, Ekl-Qeqj-Obdx, (Creon) 22149-57597 units capsule Take by mouth 3 (three) times a day with meals. pantoprazole (ProtoNix) 40 MG EC tablet Take 1 tablet (40 mg) by mouth in the morning. Do not crush, chew, or split.. 90 tablet 3 [DISCONTINUED] carvedilol (Coreg) 25 MG tablet TAKE 1 TABLET BY MOUTH TWICE A DAY WITH FOOD FOR 90 DAYS 180 tablet 3 [DISCONTINUED] lisinopril 40 MG tablet TAKE 1 TABLET BY MOUTH EVERY DAY 100 tablet 3 [DISCONTINUED] spironolactone (Aldactone) 25 MG tablet Take 12.5 mg by mouth in the morning. No current facility-administered medications on file prior to visit. No Known Allergies Social History Tobacco Use Smoking status: Never Smokeless tobacco: Never Substance Use Topics Alcohol use: Not Currently Comment: Caffeine intake : 1-2 cups per day coffee Drug use: Never Family History Problem Relation Name Age of Onset Heart disease Father Hypertension Father Hypertension Sibling Heart disease Sibling No Known Problems Son No Known Problems Daughter Melanoma Neg Hx Past Medical History: Diagnosis Date Basal cell carcinoma Brachial neuralgia CAD (coronary artery disease) (CMS/HCC) Chest pain 11/20/18-11/21/18, 03/20/17 Chest pain 07/01/2020 Electrolyte Imbalance, NSTEMI Coronary atherosclerosis of [place] coronary artery (CMS/HCC) Diverticulosis 12/2019 Heart disease History of cholecystectomy 2003 History of echocardiogram 2020 EF 40% Hyperlipemia (CMS/HCC) Hypertension (CMS/HCC) 06/2014 Pancreatitis Past Surgical History: Procedure Laterality Date ANGIOPLASTY APPENDECTOMY 1960 CHOLECYSTECTOMY COLONOSCOPY 2019 CORONARY ARTERY BYPASS GRAFT 2009 [facility] schwann EGD 2019 HERNIA REPAIR 2003 Visit Vitals BP 138/84 Pulse 72 Ht 5' 4 Wt 155 lb SpO2 96% BMI 26.61 kg/m Smoking Status Never BSA 1.78 m Review of Systems Constitutional: Negative for appetite change, fatigue and unexpected weight change. Respiratory: Negative for cough, chest tightness and shortness of breath. Cardiovascular: Negative for chest pain, palpitations and leg swelling. Gastrointestinal: Negative for abdominal pain, nausea and vomiting. Genitourinary: Negative for difficulty urinating, hematuria and urgency. Musculoskeletal: Positive for neck pain and neck stiffness. Objective Physical Exam Constitutional: General: He is not in acute distress. Appearance: He is normal weight. He is not ill-appearing. HENT: Head: Normocephalic. Cardiovascular: Rate and Rhythm: Normal rate and regular rhythm. Heart sounds: Normal heart sounds. No murmur heard. Pulmonary: Effort: Pulmonary effort is normal. Breath sounds: Normal breath sounds. Musculoskeletal: General: No swelling. Right lower leg: No edema. Left lower leg: No edema. Neurological: Mental Status: He is alert. Psychiatric: Mood and Affect: Mood normal. Thought Content: Thought content normal. Judgment: Judgment normal. Assessment/Plan Diagnoses and all orders for this visit: Benign essential hypertension (CMS/HCC) - The patient was seen today in follow up of recent hospital stay. All available hospital records were reviewed and discussed with the patient. Hospital discharge meds were reviewed. Any changes are noted above. Chronic systolic CHF (congestive heart failure), NYHA class 2 (CMS/HCC) Atherosclerosis of [place] coronary artery of [place] heart without angina pectoris (CMS/HCC) Right cervical radiculopathy - methylPREDNISolone (Medrol Dospak) 4 MG tablets; Follow schedule on package instructions Follow up in about 4 weeks (around 06/24/2023) for Recheck, F/U med changes. documented in this encounter [facility] 04-17-2023 Note Cardiology Clinic No te Subjective Davina Cabello is a 82 y.o. year old male patient with past medical history of CAD status post CABG, heart failure reduced ejection fraction, hypertension, and hyperlipidemia seen in follow-up. Patient adamantly denies any cardiac complaints or concerns. Patient denies any chest pain or shortness of breath. Patient denies any lower extremity edema, orthopnea, or proximal nocturnal dyspnea. No near-syncope or syncope. No dizziness or lightheadedness. Patient Active Problem List Diagnosis Cardiovascular stress [...] dyspnea and syncope. Objective Visit Vitals BP 134/72 (BP Location: Left arm, Patient Position: Sitting) Pulse 59 Ht 1.626 m (5' 4 ) Wt 70.3 kg (155 lb) SpO2 97% BMI 26.61 kg/m??? Smoking Status Former BSA 1.78 m??? Physical Exam General: Awake, alert, NAD [...] Rfl: spironolactone (Aldactone) 25 mg tablet, Take 1 tablet (25 mg) by mouth in the morning., Disp: 90 tablet, Rfl: 3 Recent Labs 10/20/2022 WBC 13.1, hemoglobin 14.3, [...] enlargement Mild TV and MV regurg Coronary a (more content not included)... [facility] 04-17-2023 Note Patient here for 1 m o follow up echo and labs. Still denies chest pain, SOB, and palpitations. Was lightheaded this morning. Says his BP is still up and down . Review of Systems HENT: Positive for hearing loss. Neurological: Positive for light-headedness. All other systems reviewed and are negative. [facility] 02-19-2023 Note Cardiology Clinic No te Subjective [...] 3 out of 3 bypass grafts Severe p[place] coronary artery disease 70% stenosis in small obtuse marginal Coronary artery bypass graftin02/21/2010 Coronary artery (more content not included)... [facility] 02-19-2023 Note Patient here for 3 m [...] All other systems reviewed and are negative. [facility] 12-09-2022 Note Currently stable without symptom s [facility] 12-09-2022 Note As above [facility] 12-09-2022 Note [facility]- II- remains eu volemic without exacerbation Continue GDMT- Asa, lipitor, coreg, lisinopril, aldactone Diuretic therapy- none at this time Monitor daily weights, I&O, fluid restriction 1.5-2L/day, renal function and electrolytes- Echocardiogram ordered for known reduced EF, recent chest pain and hypotension [facility] 12-09-2022 Note [facility] CARDIOLOGY PROGR ESS NOTE [...] Currently stable without symptoms RTC 3 months [facility] 12-09-2022 Note Hypertension is curr ently well controlled, PCP had reduced multiple HTN meds r/t noted symptomatic hypotension Coreg, lisinopril and aldactone were all reduced by half [facility] 12-09-2022 Note Continue statin [facility] 12-09-2022 Note Coronary artery dise ase is stable Continue GDMT- ASA, coreg, lipitor, plavix, imdur, and lisinopril continue risk factor modifications- heart healthy diet, regular exercise as tolerated and continue all medications. [facility] 04-22-2022 Evaluation note Encounter Date Diagnosis Assessment Notes Apr, Liver lesion, right lobe (ICD-10 - K76.9) [facility] Other Evaluation noteNo InformationNort [facility] Other Evaluation note* Diagnosis Benign essential hypertension (CMS/HCC)- Primary Essential hypertension, benign Chronic systolic CHF (congestive heart failure), NYHA class 2 (CMS/HCC) Atherosclerosis of [place] coronary artery of [place] heart without angina pectoris (CMS/HCC) Right cervical radiculopathy [facility] - Reported* Type Description Date Medical History GERD Medical History HTN Medical History hyperlipidemia Medical History CHF Surgical History tonsillectomy Surgical History cholecystectomy Surgical History triple bypass Surgical History appendectomy Hospitalization History see surgical history [facility] Other Summary Purpose Family History No Family [...] Records Found Hospital Course Note MR#: [id number] [facility] Pt. Name: Davina Cabello Admitted: 07/01/2020 [...] content) DATE CREATED AUTHOR 06/29/2018 [facility] DATE CREATED AUTHOR AUTHOR'S ORGANIZ ATION 07/13/2020 [facility] DATE CREATED AUTHOR AUTHOR'S ORGANIZ ATION 06/17/2021 [facility] Me dical Specialist DATE CREATED AUTHOR AUTHOR'S ORGANIZ ATION 07/31/2021 [facility] DATE CREATED AUTHOR AUTHOR'S ORGANIZ ATION 09/23/2021 [facility] DATE CREATED AUTHOR AUTHOR'S ORGANIZ ATION 10/05/2023 [facility] DATE CREATED AUTHOR AUTHOR'S ORGANIZ ATION 01/15/2024 [facility] dical Specialists EPIC REASON FOR VISIT (unrecogniz ed section and content) Reason Comments Follow-up Went to [facility] ER 2/2/2 4 was kept for observation dx: hypotension coreg and lisinopril doses decreased and advised to stop spironolactone Arm Pain Care Teams (unrecognized sec tion and content) Allergy Nurse Relationship Specialty Start Date End Date Scott Tai MD [address] [facility] [address] [place] [address] PCP - Lashon PASCUAL 04/20/21 Scott Tai MD [address] [facility] [address] [place] [address] PCP - General Internal Medicine 10/22/22 Allergy Nurse Relationship Specialty Start Date End Date Scott Tai MD [address] [facility] [address] [place] [address] PCP - Lashon PASCUAL 04/20/21 Scott Tai MD [address] [facility] [address] [place] [address] PCP - General Internal Medicine 10/22/22 FOR RECORDS PERTAINING TO PATIENTS WHO ARE [...] BE BASED ON THE PRIMARY CLINICAL RECORDS. [facility]. provides no warranty or guarantee of the accuracy or completeness of information in this document.
== END 2024-03-09 08:44 | disposition home or self-care (01) ==
LOC: CARD 08:43
PROVIDERS: PCP Internal Medicine; Visit Provider Internal Medicine Cardiovascular Disease
DX: I50.22 Chronic systolic (congestive) heart failure (principal)
CPT/HCPCS: 93306; 93356

== ENCOUNTER 2024-03-30 08:36 | Outpatient (OUT) | payer MEDICARE, SELFPAY ==
--- OUTSIDE RECORDS SUMMARY | 2024-03-30 08:50 | XMS_ITS | CCD ---
Author Organization [facility] Care Team Providers Care Churn Drill Operator Name Role Phone PHYSICIAN, DEFAULT Admitting Unavailable PHYSICIAN, DEFAULT Attending Unavailable SCOTT TAI Primary Care Unavailable VIDAL ODOM Attending Unavailable VIDAL ODOM Admitting Unavailable SCOTT TAI Primary Care Unavailable PADMA PRADO Referring Unavailable RI Procedure Practitioner UnavailBINDU Greenwood Surgeon Unavailable PAY, [...] Unavailable Scott Tai MD Primary Care Provider SCOTT TAI Attending Unavailable RONNIE OLVERA Attending Unavailable SCOTT TAI Attending Unavailable SCOTT TAI Attending Unavailable SCOTT TAI Attending Unavailable SCOTT TAI Attending Unavailable CANDI QUIROS Attending Unavailable CANDI QUIROS Attending Unavailable CANDI QUIROS Attending Unavailable Allergies Allergy Classification Reported Allergen(s) Allergy Type Date of Onset Reaction(s) Facility (1 source) 18641,00 Drug allergy (disorder) 02-21-2010 [facility] Repository Medications Current Medications Medication Drug Class(es) Dates Sig (Normalized) Sig (Original) amylase 789911 unt / lipase 92070 unt / protease 821030 unt delayed release oral capsule (5 sources) Start: 10-02-2021 take 1 capsule by mouth every eight hours Creon 74794-625942 UNIT 1 CAPSULE Orally THREE TIMES A DAY for 30 days Sep, Active take 72230-96236 [IU ] by mouth three times daily at mealtime pancrelipase, Cwz-Pxji-Ndbh, (Creon) 94768-66612 units capsule Take by mouth 3 (three) [...] kidney disease (HCC)] Onset: 10-23-2022 10-23-2022 Chronic Congestive heart failure; nonhypertensive (5 sources) Chronic systolic heart failure; Translations: [Chronic systolic (congestive) heart failure] Onset: 10-23-2022 10-23-2022 Chronic Coronary atherosclerosis and other heart disease (16 sources) Old myocardial infarction; Translations: [Atherosclerotic heart disease of [place] coronary artery without angina pectoris] Onset: 07-30-2021 Resolved: 01-08-2023 05-11-2023 Chronic Coronary atherosclerosis and other heart disease (1 source) Presence of aortocoronary bypass graft; Translations: [PRESENCE AORTOCORONARY BYPASS GRAFT] Onset: 07-30-2021 Episodic Disorders of lipid metabolism (3 sources) Hyperlipidemia; Translations: [Hyperlipidemia, unspecified] Onset: 10-23-2022 10-23-2022 Chronic Diverticulosis and diverticulitis (3 sources) Diverticulosis of colon; Translations: [Diverticulosis of large intestine without perforation or abscess without bleeding] Onset: 10-23-2022 10-23-2022 Chronic Essential hypertension (13 sources) Essential (primary) hypertension; Translations: [Benign essential [...] [Hypertensive heart disease with heart failure] Onset: 03-22-2024 Chronic Other aftercare (1 source) custodial (current) use of aspirin; Translations: [FPC CURRENT USE OF ASPIRIN] Onset: 07-30-2021 Episodic Other aftercare (1 source) Other termite inspector (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) drug therapy; Translations: [OTH CRIME LAB TECHNICIAN CURRENT DRUG THERAPY] Onset: 07-30-2021 Episodic Other aftercare (1 source) custodial (current) use of antithrombotics/anti platelets; Translations: [CRIME LAB TECHNICIAN ANTITHROMBOT/ANTIPLA TLETS] Onset: 05-08-2021 Episodic Other and [...] [Dyspnea, unspecified] Onset: 08-21-2022 10-23-2022 Episodic Other non-epithelial cancer of skin (6 [...] Value Interpretation Reference Range Facility Office Visiton 03-22-2024 Follow-up visit [id number] Radha Cabello 1940 M Date Provider Department Center 03/22/2024 CANDI JAVIER Family History Problem Relation Age of Onset Coronary artery disease Father Hypertension Father Family Status - Relation Status Age at Father Level of Service:13902 [place] OFFICE/OUTPATIENT ESTABLISHED MOD MDM 30 MIN Normal [facility] Office Visiton 10-05-2023 Follow-up visit [id number] Radha Cabello 1940 M Date Provider Department Center 10/05/2023 CANDI JAVIER Family History Problem Relation Age of Onset Coronary artery disease Father Hypertension Father Family Status - Relation Status Age at Father Level of Service:82411 [place] OFFICE/OUTPATIENT ESTABLISHED MOD MDM 30 MIN Normal [facility] Office Visiton 04-17-2023 Follow-up visit [id number] Radha Cabello 1940 M Date Provider Department Center 04/17/2023 CANDI JAVIER Family History Problem Relation Age of Onset Coronary artery disease Father Hypertension Father Family Status - Relation Status Age at Father Level of Service:51990 [place] OFFICE/OUTPATIENT ESTABLISHED MOD MDM 30 MIN Normal [facility] ISTAT XRay CREon 09-20-2021 Creatinine [Mass/Vol] 0.9 mg/dL Normal 0.6-1.3 [facility] Comment on above: Result Comment: ER/E SD physician is notified/shown all ISTAT results. Critical values may be confirmed by laboratory testing if deemed necessary by ER attending doctor. Performed By: #### I SCRE #### [address] Point of Care testing , ISTAT GFR ( > 60 Normal [facility] Comment on above: Result Comment: GFR estimated reference range: According to KDOQI guidelines, <60 ml/min/1.73m2 is sufficient to diagnose a patient with chronic kidney disease. PERFORMED BY: [place] [address] PATHOLOGIST COUNTER TOP MAKER CORINNA MCDERMOTT M.D. Performed By: #### I SCRE #### [address] Point of Care testing , ISTAT GFR (Non- Am > 60 Normal [facility] Comment on above: Performed By: #### I SCRE #### [address] Point of Care testing , MR abdomen wo/w conon 2021 MR abdomen wo/w con [facility] [place] [address] [place] [address] MRI Report Signed Patient: Radha Cabello MR#: [id number] : 1940 Acct:[id number] Age/Sex: 81 / M ADM Date: 09/20/21 Loc: [facility] Room: Type: [facility] Attending Dr: Hasmukh Morelos DO [...] Ayala Jr., D.OErika09/20/2021 11:13 AM Dictation Location: [place] [address] Transcribed By: [facility] 09/20/21 1113 Dictated By: Layton Ayala Jr, DO 09/20/21 1057 Signed By: 09/20/21 1113 Normal [facility] CULTURE URINEon 07-28-2021 CULTURE URINE [...] F Trimethoprim/Sulfame thoxazole <=20 S F Normal [facility] Comment on above: Performed By: #### U RCX ####[facility] [address] [place], [place] [address]WsErika Cloverk[address]um [address] CT ABD/PELV W CONon 07-28-19 CT [...] ANDRES GOINS Date: 2021-07-27 12:43 Normal [facility] CBC AUTO DIFFon 07-26-2021 BASO # 0.1 103/ul Normal 0.0-0.1 [facility] Comment on above: Performed By: #### C BC ####[facility] [address] [place] [id number] Damon Pollock Basophils/100 WBC (Bld) 0.5 % Normal 0.2-2.0 [facility] Comment on above: Performed By: #### C BC ####[facility] [address] [place] [id number]. Nelson Pollock EO # 0.2 103/ul Normal 0.0-0.7 [facility] Comment on above: Performed By: #### C BC ####[facility] [address] [place] [address]Dr. Nelson Pollock Eosinophils/100 WBC (Bld) 2.1 % Normal 0.9-7.0 [facility] Comment on above: Performed By: #### C BC ####[facility] [address] [place] [address]Dr. Nelson Pollock Erythrocyte distribution width (RBC) [Ratio] 13.7 % Normal 11.0-15.0 [facility] Comment on above: Performed By: #### C BC ####[facility] [address] [place], [place] [address]Dr. Nelson Pollock Hematocrit (Bld) [Volume fraction] 42.8 % Normal 42.0-54.0 [facility] Comment on above: Performed By: #### C BC ####[facility] [address] [place], [place] [address]Dr. Nelson Pollock Hemoglobin (Bld) [Mass/Vol] 14.5 g/dL Normal 14.0-18.0 [facility] Comment on above: Performed By: #### C BC ####[facility] [address] [place], [place] [address]Dr. Nelson Pollock IG # 0.04 10e3/ul Critically high 0.00-0.[address] [facility] Comment on above: Performed By: #### C BC ####[facility] [address] [place] [address]Dr. Nelson Pollock IG % 0.4 % Normal 0.0-0.5 [facility] Comment on above: Performed By: #### C BC ####[facility] [address] [place], [place] [address]Dr. Nelson Pollock LYMPH # 1.7 103/ul Normal 1.2-3.8 [facility] Comment on above: Performed By: #### C BC ####[facility] [address] [place] [address]. Nelson Pollock Lymphocytes/100 WBC (Bld) 15.6 % Critically low 20.5-60.0 [facility] Comment on above: Performed By: #### C BC ####[facility] [address] [place] [address]Dr. Nelson Pollock MANUAL DIFF REQ NO Normal [facility] Comment on above: Performed By: #### C BC ####[facility] [address] [place] [address]Dr. Nelson Pollock MCH (RBC) [Entitic mass] 29.2 pg Normal 25.9-34.0 [facility] Comment on above: Performed By: #### C BC ####[facility] [address] [place] [address]Dr. Nelson Pollock MCHC (RBC) [Mass/Vol] 33.9 g/dL Normal 29.9-35.2 [facility] Comment on above: Performed By: #### C BC ####[facility] [address] [place] [address]Dr. Nelson Pollock MCV (RBC) [Entitic vol] 86.1 fL Normal 80.0-94.0 [facility] Comment on above: Performed By: #### C BC ####[facility] [address] [place] [address]Dr. Nelson Pollock MONO # 0.8 103/ul Normal 0.3-0.8 [facility] Comment on above: Performed By: #### C BC ####[facility] [address] [place] [address]Dr. Nelson Pollock Monocytes/100 WBC (Bld) 7.3 % Normal 1.7-12.0 [facility] Comment on above: Performed By: #### C BC ####[facility] [address] [place], [place] [address]Dr. Nelson Pollock NEUT # 8.1 103/ul Critically high 1.4-6.5 [facility] Comment on above: Performed By: #### C BC ####[facility] [address] [place], [place] [address]Dr. Nelson Pollock Neutrophils/100 WBC (Bld) 74.1 % Normal 43.0-75.0 [facility] Comment on above: Performed By: #### C BC ####[facility] [address] [place] [address]Dr. Nelson Pollock Platelet mean volume (Bld) [Entitic vol] 10.2 fL Normal 9.5-13.5 [facility] Comment on above: Performed By: #### C BC ####[facility] [address] [place] [address]Dr. Nelson Pollock PLT 191 103/ul Normal 150-450 [facility] Comment on above: Performed By: #### C BC ####[facility] [address] [place] [address]Dr. Nelson Pollock RBC 4.97 106/ul Normal 4.70-6.10 [facility] Comment on above: Performed By: #### C BC ####[facility] [address] [place] [address]Dr. Nelson Pollock WBC 11.0 103/ul Normal 4.0-11.0 [facility] Comment on above: Performed By: #### C BC ####[facility] [address] [place], [place] [address]DrErika Pollock ER URINE PROFILEon 2 Bilirubin Ql (U) Negative Normal NEGATIVE [facility] Comment on above: Performed By: #### DAT DIALLORO #### [facility] [address] [place] [address] Dr. Nelson Pollock Clarity (U) SL CLOUDY Abnormal CLEAR [facility] Comment on above: Performed By: #### DAT DIALLORO #### [facility] [address] [place] [address] Dr. Nelson Pollock Color (U) LT. YELLOW Normal YELLOW [facility] Comment on above: Performed By: #### DAT DIALLORO #### [facility] [address] [place] [address] Dr. Nelson FELTON A micrscopic examination will be performed if indicated. Normal [facility] Comment on above: Performed By: #### Anny ZAMORA UMICRO #### [facility] [address] [place] [address] [address] Nelson Pollock Glucose Ql (U) Negative Normal NEGATIVE [facility] Comment on above: Performed By: #### Anny ZAMORA UMICRO #### [facility] [address] [place] [address] [address] Nelson Pollock Hemoglobin Ql (U) Negative Normal NEGATIVE [facility] Comment on above: Performed By: #### Anny ZAMORA UMICRO #### [facility] [address] [place] [address] [address] Nelson Pollock Ketones Ql (U) Negative Normal NEGATIVE [facility] Comment on above: Performed By: #### Anny ZAMORA UMICRO #### [facility] [address] [place] [address] Dr. Nelson Pollock LEUKOCYTES SMALL Abnormal NEGATIVE [facility] Comment on above: Performed By: #### Anny ZAMORA UMICRO #### [facility] [address] [place] [address] Dr. Nelson Pollock Nitrite Ql (U) Negative Normal NEGATIVE [facility] Comment on above: Performed By: #### Anny ZAMORA UMICRO #### [facility] [address] [place] [address] Dr. Nelson Pollock pH (U) 5.0 [pH] Normal 5-9 [facility] Comment on above: Performed By: #### Anny ZAMORA UMICRO #### [facility] [address] [place] [address] Dr. Nelson Pollock SPEC GRAVITY <=1.005 Abnormal 1.005-<=1.025 [facility] Comment on above: Performed By: #### Anny ZAMORA UMICRO #### [facility] [address] [place] [address] Dr. Nelson Pollock UA PROTEIN Negative Normal NEGATIVE/ TRACE [facility] Comment on above: Performed By: #### Anny ZAMORA UMICRO #### [facility] [address] [place] [address] [address] Nelson Pollock UR MICRO IND INDICATED Normal [facility] Comment on above: Performed By: #### LEISA DIALLO #### [facility] [address] [place] [address] [address] Nelson Pollock Urobilinogen Qn (U) 0.2 {Christopher'U}/dL Normal 0.2 - 1. 0 [facility] Comment on above: Performed By: #### LEISA DIALLO #### [facility] [address] [place] [address] [address] Nelson Pollock LACTATE/LACTIC ACIDon 2021 Lactate [Moles/Vol] 1.2 mmol/L Normal 0.7-2.0 [facility] Comment on above: Performed By: #### L ACT #### [facility] [address] [place] [address] Dr. Nelson Pollock LIPASEon 07-26-2021 Lipase [Catalytic activity/Vol] 865.0 U/L Critically high 23.0-300.0 [facility] Comment on above: Performed By: #### L IPA HSTROPN, CMP ####[facility] [address] [place] [address]DrErika Pollock PROF 14(COMP METB)on 022 Albumin [Mass/Vol] 4.1 g/dL Normal 3.4-5.0 [facility] Comment on above: Performed By: #### L IPA, HSTROPN, CMP ####[facility] [address] [place] [address]DrErika Pollock Albumin/Globulin [Mass ratio] 1.2 {ratio} Normal [facility] Comment on above: Performed By: #### L IPA, HSTROPN, CMP ####[facility] [address] [place] [address]DrErika Pollcok ALP [Catalytic activity/Vol] 89 U/L Normal 46-116 [facility] Comment on above: Performed By: #### L IPA, HSTROPN, CMP ####[facility] [address] [place] [address]Dr. Nelson Pollock ALT [Catalytic activity/Vol] 43 U/L Normal 16-63 [facility] Comment on above: Performed By: #### L IPA, HSTROPN, CMP ####[facility] [address] [place] [address]Dr. Nelson Pollock Anion gap [Moles/Vol] 15.5 mmol/L Normal [facility] Comment on above: Performed By: #### L IPA, HSTROPN, CMP ####[facility] [address]osc[address] [place] [address]Dr. Nelson Pollock AST [Catalytic activity/Vol] 53 U/L Critically high 15-37 [facility] Comment on above: Performed By: #### L IPA, HSTROPN, CMP ####[facility] [address] [place], [place] [address]Dr. Nelson Pollock Bilirubin [Mass/Vol] 2.4 mg/dL Critically high 0.2-1.3 [facility] Comment on above: Performed By: #### L IPA, HSTROPN, CMP ####[facility] [address] [place], [place] [address]Dr. Nelson Pollock Calcium [Mass/Vol] 8.5 mg/dL Normal 8.5-10.1 [facility] Comment on above: Performed By: #### L IPA, HSTROPN, CMP ####[facility] [address] [place], [place] [address]Dr. Nelson Pollock Chloride [Moles/Vol] 105 mmol/L Normal 98-107 [facility] Comment on above: Performed By: #### L IPA, HSTROPN, CMP ####[facility] [address] [place], [place] [address]Dr. Nelson Pollock CO2 [Moles/Vol] 22.3 mmol/L Normal 22.0-30.0 [facility] Comment on above: Performed By: #### L IPA, HSTROPN, CMP ####[facility] [address] [place], [place] [address]Dr. Nelson Pollock Creatinine [Mass/Vol] 1.06 mg/dL Normal 0.66-1.25 [facility] Comment on above: Performed By: #### L BESSIE PADILLATRLESAN, CMP ####[facility] [address] [place] [address]Dr. Nelson Pollock EGFR-AF [place] >60 Normal >=60 [facility] Comment on above: Performed By: #### L IPA HSTROPN, CMP ####[facility] [address] [place] [address]Dr. Nelson Pollock EGFR-NON AF [place] >60 Normal >=60 [facility] Comment on above: Performed By: #### L BESSIE PADILLATRLESAN, CMP ####[facility] [address] [place], [place] [address]Dr. Nelson Pollock Globulin (S) [Mass/Vol] 3.4 g/dL Normal [facility] Comment on above: Performed By: #### L RANDY HSTRLESAN, CMP ####[facility] [address] [place], [place] [address]Dr. Nelson Pollock Glucose [Mass/Vol] 154 mg/dL Critically high 74-106 [facility] Comment on above: Performed By: #### L BESSIE PADILLATRLESAN, CMP ####[facility] V[address] [place], [place] [address]Dr. Cloverkusum Pollock Potassium [Moles/Vol] 3.8 mmol/L Normal 3.4-5.0 [facility] Comment on above: Performed By: #### L IPA HSTROPN, CMP ####[facility] [address] [place], [place] [address]Dr. Nelson Pollock Protein [Mass/Vol] 7.5 g/dL Normal 6.1-8.2 [facility] Comment on above: Performed By: #### L IPA HSTROPN, CMP ####[facility] [address]ts[address] [place] [address]Dr. Nelson Pollock Sodium [Moles/Vol] 139 mmol/L Normal 137-145 [facility] Comment on above: Performed By: #### L IPA, HSTROPN, CMP ####[facility] [address]qfw[address] [place] [address]Dr. Nelson Pollock Urea nitrogen [Mass/Vol] 25.0 mg/dL Critically high 7.0-18.0 [facility] Comment on above: Performed By: #### L IPA, HSTROPN, CMP ####[facility] [address] [place], [place] [address]Dr. Nelson Pollock Urea nitrogen/Creatinine [Mass ratio] 23.6 mg/mg Normal [facility] Comment on above: Performed By: #### L IPA, HSTROPN, CMP ####[facility] [address] [place], [place] [address]Dr. Nelson Pollock PROTIMEon 07-26-2021 INR Coag (PPP) [Relative time] 1.07 {INR} Normal [facility] Comment on above: Performed By: #### P TT, PT ####[facility] [address] [place], [place] [address]Dr. Nelson Pollock INR GUIDELINES SEE BELOW Normal [facility] Comment on above: Result Comment: ARTEM RED INR: 2.0 - 3.0 CONDITIONS NOT LISTED BELOW 2.5 - 3.5 FOR PROSTHETIC HEART VALVE REPLACEMENT 2.5 - 3.5 RECURRENT THROMBOSIS Performed By: #### P TT, PT ####[facility] [address] [place], [place] [address]Dr. Nelson Pollock PT Coag (PPP) [Time] 11.5 s Normal 9.0-11.6 [facility] Comment on above: Performed By: #### P TT, PT ####[facility] [address] [place], [place] [address]Dr. Nelson Pollock PTTon 07-26-2021 aPTT Coag (Bld) [Time] 24.9 s Normal 22.3-36.2 [facility] Comment on above: Performed By: #### P TT, PT ####[facility] [address] [place], [place] [address]Dr. Nelson Pollock TROPONIN, HIGH SENSITIVITYon 07-26-2021 HSTROP 38.6 pg/mL Normal 4.0-42.2 [facility] Comment on above: Result Comment: CUT- OFF POINTS HAVE BEEN ESTABLISHED BASED ON THE FOURTH UNIVERSAL DEFINITIONS OF MYOCARDIAL INFARCTION. THE UPPER REFERENCE LIMIT (URL) OF TROPONIN, DEFINED THE 99TH PERCENTILE OF cTnI DISTRIBUTION IN A REFERENCE POPULATION, HAS BEEN CONFIRMED THE DECISION THRESHOLD FOR UT DIAGNOSIS. Performed By: #### L IPA, HSTROPN, CMP ####[facility] [address] [place] [address]Dr. Nelson Pollock URINE MICROSCOPIC ONLYon BACTERIA MODERATE Abnormal NONE SEEN [facility] Comment on above: Performed By: #### E SERA UMICRO #### [facility] [address] [place] [address] Dr. Nelson Pollock Bacteria identified Cx Nom (U) INDICATED Normal [facility] Comment on above: Performed By: #### Anny ZAMORA UMICRO #### [facility] [address] [place] [address] Dr. Nelson Pollock CAST NONE SEEN Normal NONE SEEN [facility] Comment on above: Performed By: #### E SERA UMICRO #### [facility] [address] [place] [address] Dr. Nelson Pollock Crystals LM Nom (Urine sed) NONE SEEN Normal NONE SEEN [facility] Comment on above: Performed By: #### Anny ZAMORA UMICRO #### [facility] [address] [place] [address] Dr. Nelson Pollock Epithelial cells LM Ql (Urine sed) RARE Normal NONE SEEN /RARE [facility] Comment on above: Performed By: #### E RUR, UMICRO #### [facility] [address] [place] [address] Dr. Nelson Pollock MUCOUS NONE SEEN Normal NONE SEEN [facility] Comment on above: Performed By: #### E RUR, UMICRO #### [facility] [address] [place] [address] Dr. Nelson Pollock RBC 2-5 Abnormal 0-2 [facility] Comment on above: Performed By: #### E RUDuong UMICRO #### [facility] [address] [place], [place] [address] Dr. Nelson Pollock WBC (U) [#/Vol] /uL Abnormal NONE SEEN [facility] Comment on above: Performed By: #### E LEISA ZAMORA #### [facility] [address] [place], [place] [address] Dr. Nelson Pollock XR CHEST 1 Von [...] PERNELL SARMIENTO Date: 2021-07-26 16:40 Normal [facility] Basic Metabolic Panelon 05-22 Anion gap [Moles/Vol] 16 mmol/L Normal 12-20 [facility] Comment on above: Result Comment: Effe ctive 04/25/2019 reference range changed. Performed By: #### B MP #### [facility] [address] [place], [place] [id number] Calcium [Mass/Vol] 9.5 mg/dL Normal 8.6-10.2 [facility] Comment on above: Performed By: #### B MP #### [facility] [address] [place], [place] [id number] Chloride [Moles/Vol] 106 mmol/L Normal 98-107 [facility] Comment on above: Performed By: #### B MP #### [facility] [address] [place], [place] [id number] CO2 [Moles/Vol] 24 mmol/L Normal 20-31 [facility] Comment on above: Performed By: #### B MP #### [facility] [address] [place], [place] [id number] Creatinine [Mass/Vol] 0.9 mg/dL Normal 0.7-1.4 [facility] Comment on above: Performed By: #### B MP #### [facility] [address] [place], [place] [id number] eGFRAA 100 mL/min/1.73m2 Normal >60 [facility] Comment on above: Performed By: #### B MP #### [facility] [address] [place], [place] [id number] eGFRNAA 83 mL/min/1.73m2 Normal >60 [facility] Comment on above: Performed By: #### B MP #### [facility] [address] [place], [place] [id number] Glucose [Mass/Vol] 85 mg/dL Normal 65-99 [facility] Specialist Comment on above: Result Comment: For FASTING Glucose --- ADA reference ranges: Normal 65-99 mg/dl Prediabetes 100-125 Diabetes >/= 126 Performed By: #### B MP #### [facility] [address] [place], [place] [id number] Potassium [Moles/Vol] 4.1 mmol/L Normal 3.5-5.5 [facility] Comment on above: Performed By: #### B MP #### [facility] [address] [place], [place] [id number] Sodium [Moles/Vol] 142 mmol/L Normal 135-146 [facility] Comment on above: Performed By: #### B MP #### [facility] [address] [place], [place] [id number] Urea nitrogen [Mass/Vol] 16 mg/dL Normal 7-25 [facility] Comment on above: Performed By: #### B MP #### [facility] [address] [place], [place] [id number] CBC AUTO DIFFon 05-06-2021 BASO # 0.1 103/ul Normal 0.0-0.1 [facility] Comment on above: Performed By: #### C BC #### [facility] [address] [place], [place] [address] Dr. Nelson Pollock Basophils/100 WBC (Bld) 0.8 % Normal 0.2-2.0 [facility] Comment on above: Performed By: #### C BC #### [facility] [address] [place] [address] Dr. Nelson Pollock EO # 0.3 103/ul Normal 0.0-0.7 [facility] Comment on above: Performed By: #### C BC #### [facility] [address] [place] [address] Dr. Nelson Pollock Eosinophils/100 WBC (Bld) 2.8 % Normal 0.9-7.0 [facility] Comment on above: Performed By: #### C BC #### [facility] [address] [place] [address] Dr. Nelson Pollock Erythrocyte distribution width (RBC) [Ratio] 13.2 % Normal 11.0-15.0 [facility] Comment on above: Performed By: #### C BC #### [facility] [address] [place] [address] Dr. Nelson Pollock Hematocrit (Bld) [Volume fraction] 45.8 % Normal 42.0-54.0 [facility] Comment on above: Performed By: #### C BC #### [facility] [address] [place] [address] Dr. Nelson Pollock Hemoglobin (Bld) [Mass/Vol] 15.6 g/dL Normal 14.0-18.0 [facility] Comment on above: Performed By: #### C BC #### [facility] [address] [place] [address] Dr. Nelson Pollock IG # 0.04 10e3/ul Critically high 0.00-0.03 [facility] Comment on above: Performed By: #### C BC #### [facility] [address] [place] [address] Dr. Nelson Pollock IG % 0.4 % Normal 0.0-0.5 [facility] Comment on above: Performed By: #### C BC #### [facility] [address] [place] [address] Dr. Nelson Pollock LYMPH # 3.1 103/ul Normal 1.2-3.8 [facility] Comment on above: Performed By: #### C BC #### [facility] [address] [place] [address] Dr. Nelson Pollock Lymphocytes/100 WBC (Bld) 27.2 % Normal 20.5-60.0 [facility] Comment on above: Performed By: #### C BC #### [facility] [address] [place] [address] Dr. Nelson Pollock MANUAL DIFF REQ NO Normal [facility] Comment on above: Performed By: #### C BC #### [facility] [address] [place] [address] Dr. Nelson Pollock MCH (RBC) [Entitic mass] 29.1 pg Normal 25.9-34.0 [facility] Comment on above: Performed By: #### C BC #### [facility] [address] [place] [address] Dr. Nelson Pollock MCHC (RBC) [Mass/Vol] 34.1 g/dL Normal 29.9-35.2 [facility] Comment on above: Performed By: #### C BC #### [facility] [address] [place] [address] Dr. Nelson Pollock MCV (RBC) [Entitic vol] 85.3 fL Normal 80.0-94.0 [facility] Comment on above: Performed By: #### C BC #### [facility] [address] [place] [address] Dr. Nelson Pollock MONO # 1.0 103/ul Critically high 0.3-0.8 [facility] Comment on above: Performed By: #### C BC #### [facility] [address] [place] [address] Dr. Nelson Pollock Monocytes/100 WBC (Bld) 9.0 % Normal 1.7-12.0 [facility] Comment on above: Performed By: #### C BC #### [facility] [address] [place] [address] Dr. Nelson Pollock NEUT # 6.8 103/ul Critically high 1.4-6.5 [facility] Comment on above: Performed By: #### C BC #### [facility] [address] [place] [address] Dr. Nelson Pollock Neutrophils/100 WBC (Bld) 59.8 % Normal 43.0-75.0 [facility] Comment on above: Performed By: #### C BC #### [facility] [address] [place] [address] [address] Nelson Pollock Platelet mean volume (Bld) [Entitic vol] 10.3 fL Normal 9.5-13.5 [facility] Comment on above: Performed By: #### C BC #### [facility] [address] [place] [address] [address] Nelson Pollock PLT 196 103/ul Normal 150-450 [facility] Comment on above: Performed By: #### C BC #### [facility] [address] [place] [address] [address] Nelson Pollock RBC 5.37 106/ul Normal 4.70-6.10 [facility] Comment on above: Performed By: #### C BC #### [facility] [address] [place] [address] [address] Nelson Pollock WBC 11.3 103/ul Critically high 4.0-11.0 [facility] Comment on above: Performed By: #### C BC #### [facility] [address] [place] [address] [address] Nelson Pollock PROF CHEM 8 (BAS METB)on Anion gap [Moles/Vol] 10.8 mmol/L Normal [facility] Comment on above: Performed By: #### B JOVANI HSTROPN ####[facility] [address] [place] [address]Dr. Nelson Pollock Calcium [Mass/Vol] 8.8 mg/dL Normal 8.4-10.2 [facility] Comment on above: Performed By: #### Viola HAHN HSTROPN ####[facility] [address] [place] [id number]. Nelson Pollock Chloride [Moles/Vol] 104 mmol/L Normal 98-107 [facility] Comment on above: Performed By: #### B JOVANI HSTROPN ####[facility] [address] [place] [address]Dr. Cloverkusum Pollock CO2 [Moles/Vol] 26.7 mmol/L Normal 22.0-30.0 [facility] Comment on above: Performed By: #### B JOVANI, HSTROPN ####[facility] [address] [place] [address]Dr. Cloverkusum Pollock Creatinine [Mass/Vol] 0.95 mg/dL Normal 0.66-1.25 [facility] Comment on above: Performed By: #### B JOVANI, HSTROPN ####[facility] [address] [place] [address]Dr. Nelson Pollock EGFR-AF [place] >60 Normal >=60 [facility] Comment on above: Performed By: #### B JOVANI, HSTROPN ####[facility] [address] [place], [place] [address]Dr. Nelson Pollock EGFR-NON AF [place] >60 Normal >=60 [facility] Comment on above: Performed By: #### B JOVANI, HSTROPN ####[facility] [address] [place] [address]Dr. Nelson Pollock Glucose [Mass/Vol] 121 mg/dL Critically high 74-106 [facility] Comment on above: Performed By: #### B JOVANI, HSTROPN ####[facility] [address] [place] [address]Dr. Nelson Pollock Potassium [Moles/Vol] 3.5 mmol/L Normal 3.4-5.0 [facility] Comment on above: Performed By: #### B JOVANI, HSTROPN ####[facility] [address] [place] [address]Dr. Nelson Pollock Sodium [Moles/Vol] 138 mmol/L Normal 137-145 [facility] Comment on above: Performed By: #### B JOVANI, HSTROPN ####[facility] [address] [place] [address]Dr. Nelson Pollock Urea nitrogen [Mass/Vol] 12.0 mg/dL Normal 9.0-20.0 [facility] Comment on above: Performed By: #### B JOVANI, HSTROPN ####[facility] [address] [place] [id number]. Nelson Pollock Urea nitrogen/Creatinine [Mass ratio] 12.6 mg/mg Normal [facility] Comment on above: Performed By: #### B JOVANI, HSTROPN ####[facility] [address] [place] [id number]. Nelson oPllock TROPONIN, HIGH SENSITIVITYon 05-06-2021 HSTROP 41.0 pg/mL Normal 4.0-42.2 [facility] Comment on above: Result Comment: CUT- OFF POINTS HAVE BEEN ESTABLISHED BASED ON THE FOURTH UNIVERSAL DEFINITIONS OF MYOCARDIAL INFARCTION. THE UPPER REFERENCE LIMIT (URL) OF TROPONIN, DEFINED THE 99TH PERCENTILE OF cTnI DISTRIBUTION IN A REFERENCE POPULATION, HAS BEEN CONFIRMED THE DECISION THRESHOLD FOR UT DIAGNOSIS. Performed By: #### B JOVANI, HSTROPN ####[facility] [address] [place] [address]Dr. Nelson Pollock XR CHEST 1 Von 05-06-2021 [...] CARLTON BRAVO Date: 2021-05-06 20:10 Normal [facility] BNPon 01-06-2021 Natriuretic peptide B (Bld) [Mass/Vol] 268.0 pg/mL Normal <=1,800.0 [facility] Comment on above: Performed By: #### B BRAZER CONTROLLED ATMOSPHERIC FURNACE #### [facility] [address] [place] [address] [address] Nelson Pollock CBC AUTO DIFFon 01-06-2021 BASO # 0.1 103/ul Normal 0.0-0.1 [facility] Comment on above: Performed By: #### C BC #### [facility] [address] [place] [address] [address] Nelson Pollock Basophils/100 WBC (Bld) 0.6 % Normal 0.2-2.0 [facility] Comment on above: Performed By: #### C BC #### [facility] [address] [place] [address] [address] Nelson Pollock EO # 0.2 103/ul Normal 0.0-0.7 [facility] Comment on above: Performed By: #### C BC #### [facility] [address] [place] [address] [address] Nelson Pollock Eosinophils/100 WBC (Bld) 1.6 % Normal 0.9-7.0 [facility] Comment on above: Performed By: #### C BC #### [facility] [address] [place] [address] Dr. Nelson Pollock Erythrocyte distribution width (RBC) [Ratio] 13.9 % Normal 11.0-15.0 [facility] Comment on above: Performed By: #### C BC #### [facility] [address] [place] [address] [address] Nelson Pollock Hematocrit (Bld) [Volume fraction] 46.4 % Normal 42.0-54.0 [facility] Comment on above: Performed By: #### C BC #### [facility] [address] [place] [address] Dr. Nelson Pollock Hemoglobin (Bld) [Mass/Vol] 15.5 g/dL Normal 14.0-18.0 [facility] Comment on above: Performed By: #### C BC #### [facility] [address] [place] [address] [address] Nelson Pollock IG # 0.04 10e3/ul Critically high 0.00-0.[address] [facility] Comment on above: Performed By: #### C BC #### [facility] [address] [place] [address] Dr. Nelson Pollock IG % 0.4 % Normal 0.0-0.5 [facility] Comment on above: Performed By: #### C BC #### [facility] [address] [place] [address] Dr. Nelson Pollock LYMPH # 2.3 103/ul Normal 1.2-3.8 [facility] Comment on above: Performed By: #### C BC #### [facility] [address] [place] [address] Dr. Nelson Pollock Lymphocytes/100 WBC (Bld) 22.8 % Normal 20.5-60.0 [facility] Comment on above: Performed By: #### C BC #### [facility] [address] [place] [address] Dr. Nelson Pollock MANUAL DIFF REQ NO Normal [facility] Comment on above: Performed By: #### C BC #### [facility] [address] [place] [address] Dr. Nelson Pollock MCH (RBC) [Entitic mass] 28.3 pg Normal 25.9-34.0 [facility] Comment on above: Performed By: #### C BC #### [facility] [address] [place] [address] Dr. Nelson Pollock MCHC (RBC) [Mass/Vol] 33.4 g/dL Normal 29.9-35.2 [facility] Comment on above: Performed By: #### C BC #### [facility] [address] [place] [address] Dr. Nelson Pollock MCV (RBC) [Entitic vol] 84.7 fL Normal 80.0-94.0 [facility] Comment on above: Performed By: #### C BC #### [facility] [address] [place] [address] Dr. Nelson Pollock MONO # 0.8 103/ul Normal 0.3-0.8 [facility] Comment on above: Performed By: #### C BC #### [facility] [address] [place] [address] Dr. Nelson Pollock Monocytes/100 WBC (Bld) 8.0 % Normal 1.7-12.0 [facility] Comment on above: Performed By: #### C BC #### [facility] [address] [place] [address] [address] Nelson Pollock NEUT # 6.8 103/ul Critically high 1.4-6.5 [facility] Comment on above: Performed By: #### C BC #### [facility] [address] [place] [address] [address] Nelson Pollock Neutrophils/100 WBC (Bld) 66.6 % Normal 43.0-75.0 [facility] Comment on above: Performed By: #### C BC #### [facility] [address] [place] [address] [address] Nelson Pollock Platelet mean volume (Bld) [Entitic vol] 10.6 fL Normal 9.5-13.5 [facility] Comment on above: Performed By: #### C BC #### [facility] [address] [place] [address] Dr. Nelson Pollock PLT 201 103/ul Normal 150-450 [facility] Comment on above: Performed By: #### C BC #### [facility] [address] [place] [address] [address] Nelson Pollock RBC 5.48 106/ul Normal 4.70-6.10 [facility] Comment on above: Performed By: #### C BC #### [facility] [address] [place] [address] Dr. Nelson Pollock WBC 10.2 103/ul Normal 4.0-11.0 [facility] Comment on above: Performed By: #### C BC #### [facility] [address] [place] [address] Dr. Nelson Pollock PROF 14(COMP METB)on 021 Albumin [Mass/Vol] 3.8 g/dL Normal 3.5-5.0 [facility] Comment on above: Performed By: #### C JOVANI HSTROPN #### [facility] [address] [place] [address] [address] Nelson Pollock Albumin/Globulin [Mass ratio] 1.2 {ratio} Normal [facility] Comment on above: Performed By: #### C JOVANI HSTROPN #### [facility] [address] [place] [address] [address] Nelson Pollock ALP [Catalytic activity/Vol] 73 U/L Normal 38-126 [facility] Comment on above: Performed By: #### C MP, HSTROPN #### [facility] [address] [place] [address] [address] Nelson Pollock ALT [Catalytic activity/Vol] 20 U/L Critically low 21-72 [facility] Comment on above: Performed By: #### C MP, HSTROPN #### [facility] [address] [place] [address] [address] Nelson Pollock Anion gap [Moles/Vol] 11.0 mmol/L Normal [facility] Comment on above: Performed By: #### C MP, HSTROPN #### [facility] [address] [place] [address] Dr. Nelson Pollock AST [Catalytic activity/Vol] 18 U/L Normal 17-59 [facility] Comment on above: Performed By: #### C MP, HSTROPN #### [facility] [address] [place] [address] [address] Nelson Pollock Bilirubin [Mass/Vol] 1.7 mg/dL Critically high 0.2-1.3 [facility] Comment on above: Performed By: #### C MP, HSTROPN #### [facility] [address] [place] [address] [address] Nelson Pollock Calcium [Mass/Vol] 8.9 mg/dL Normal 8.4-10.2 [facility] Comment on above: Performed By: #### C MP, HSTROPN #### [facility] [address] [place] [address] [address] Nelson Pollock Chloride [Moles/Vol] 105 mmol/L Normal 98-107 [facility] Comment on above: Performed By: #### C MP, HSTROPN #### [facility] [address] [place] [address] [address] Nelson Pollock CO2 [Moles/Vol] 26.5 mmol/L Normal 22.0-30.0 [facility] Comment on above: Performed By: #### C MP, HSTROPN #### [facility] [address] [place] [address] Dr. Nelson Pollock Creatinine [Mass/Vol] 0.82 mg/dL Normal 0.66-1.25 [facility] Comment on above: Performed By: #### C MP, HSTROPN #### [facility] [address] [place] [address] Dr. Nelson Pollock EGFR-AF [place] >60 Normal >=60 [facility] Comment on above: Performed By: #### C MP, HSTROPN #### [facility] [address] [place] [address] Dr. Nelson Pollock EGFR-NON AF [place] >60 Normal >=60 [facility] Comment on above: Performed By: #### C MP, HSTROPN #### [facility] [address] [place] [address] Dr. Nelson Pollock Globulin (S) [Mass/Vol] 3.3 g/dL Normal [facility] Comment on above: Performed By: #### C MP, HSTROPN #### [facility] [address] [place] [address] Dr. Nelson Pollock Glucose [Mass/Vol] 87 mg/dL Normal 74-106 [facility] Comment on above: Performed By: #### C MP, HSTROPN #### [facility] [address] [place] [address] Dr. Nelson Pollock Potassium [Moles/Vol] 3.5 mmol/L Normal 3.4-5.0 [facility] Comment on above: Performed By: #### C MP, HSTROPN #### [facility] [address] [place] [address] Dr. Nelson Pollock Protein [Mass/Vol] 7.1 g/dL Normal 6.1-8.2 [facility] Comment on above: Performed By: #### C MP, HSTROPN #### [facility] [address] [place] [address] Dr. Nelson Pollock Sodium [Moles/Vol] 139 mmol/L Normal 137-145 [facility] Comment on above: Performed By: #### C JOVANI, HSTROPN #### [facility] [address] [place], [place] [address] Dr. Nelson Pollock Urea nitrogen [Mass/Vol] 13.0 mg/dL Normal 9.0-20.0 [facility] Comment on above: Performed By: #### C JOVANI, HSTROPN #### [facility] [address] [place], [place] [address] Dr. Nelson Pollock Urea nitrogen/Creatinine [Mass ratio] 15.9 mg/mg Normal [facility] Comment on above: Performed By: #### C JOVANI, HSTROPN #### [facility] [address] [place] [address] [address] Nelson Pollock TROPONIN, HIGH SENSITIVITYon 01-06-2021 HSTROP 43.4 pg/mL Critically high 4.0-42.2 [facility] Comment on above: Result Comment: CUT- OFF POINTS HAVE BEEN ESTABLISHED BASED ON THE FOURTH UNIVERSAL DEFINITIONS OF MYOCARDIAL INFARCTION. THE UPPER REFERENCE LIMIT (URL) OF TROPONIN, DEFINED THE 99TH PERCENTILE OF cTnI DISTRIBUTION IN A REFERENCE POPULATION, HAS BEEN CONFIRMED THE DECISION THRESHOLD FOR UT DIAGNOSIS. Performed By: #### C JOVANI, HSTROPN #### [facility] [address] [place] [address] Dr. Nelson Pollock XR CHEST 1 Von [...] by: JASKARAN CARRERA Date: 2021-01-06 11:24 Normal [facility] BASIC METABOLIC PANELon - Calcium [Mass/Vol] 8.5 mg/dL Low 8.6-10.3 [facility] Comment on above: Order Comment: No: D o not add to previous draw Performed By: #### 0 0071, [id number] #### [facility] [address] [place] [address], [facility] Chloride [Moles/Vol] 108 mmol/L High 98-107 [facility] Comment on above: Order Comment: No: D o not add to previous draw Performed By: #### 0 0071, [id number] #### [facility] [address] [place] [address], [place] CO2 [Moles/Vol] 27 mmol/L Normal 21-31 [facility] Comment on above: Order Comment: No: D o not add to previous draw Performed By: #### 0 0071, [id number] #### [facility] [address] [place] [address], [facility] Creatinine [Mass/Vol] 0.89 mg/dL Normal 0.70-1.30 [facility] Comment on above: Order Comment: No: D o not add to previous draw Performed By: #### 0 0071, [id number] #### [facility] [address] [place] [address], [facility] GFR/1.73 sq M predicted among blacks MDRD (S/P/Bld) [Vol rate/Area] mL/min/{1.73_m2} Normal >60 [facility] Comment on above: Order Comment: No: D o not add to previous draw Result Comment: Calc ulation may not be valid for patients over 70 years Performed By: #### 0 0071, [id number] #### [facility] [address] [place] [address], [place] GFR/1.73 sq M predicted among non-blacks MDRD (S/P/Bld) [Vol rate/Area] mL/min/{1.73_m2} Normal >60 [facility] Comment on above: Order Comment: No: D o not add to previous draw Result Comment: Calc ulation may not be valid for patients over 70 years Performed By: #### 0 0071, [id number] #### [facility] [address] [place] [address], [place] Glucose [Mass/Vol] 78 mg/dL Normal 70-100 [facility] Comment on above: Order Comment: No: D o not add to previous draw Performed By: #### 0 0071, [id number] #### [facility] [address] [place] [address], [place] Potassium [Moles/Vol] 4.0 mmol/L Normal 3.5-5.1 [facility] Comment on above: Order Comment: No: D o not add to previous draw Performed By: #### 0 0071, [id number] #### [facility] [address] [place] [address], [place] Sodium [Moles/Vol] 144 mmol/L Normal 136-145 [facility] Comment on above: Order Comment: No: D o not add to previous draw Performed By: #### 0 0071, [id number] #### [facility] [address] [place] [address], [place] Urea nitrogen [Mass/Vol] 21 mg/dL Normal 7-25 [facility] Comment on above: Order Comment: No: D o not add to previous draw Performed By: #### 0 0071, [id number] #### [facility] [address] [place] [address], [place] Calcium [Mass/Vol] 8.3 mg/dL Low 8.6-10.3 [facility] Comment on above: Performed By: #### 0 0071, 12841, 63886 #### [facility] [address] [place] [address], [place] Chloride [Moles/Vol] 108 mmol/L High 98-107 [facility] Comment on above: Performed By: #### 0 0071, [id number], 05384 #### [facility] [address] [place] [address], [place] CO2 [Moles/Vol] 24 mmol/L Normal 21-31 [facility] Comment on above: Performed By: #### 0 0071, 87758, 17453 #### [facility] [address] [place] [address], [place] Creatinine [Mass/Vol] 0.90 mg/dL Normal 0.70-1.30 [facility] Comment on above: Performed By: #### 0 0071, 41509, 78984 #### [facility] [address] [place] [address], [place] GFR/1.73 sq M predicted among blacks MDRD (S/P/Bld) [Vol rate/Area] mL/min/{1.73_m2} Normal >60 [facility] Comment on above: Result Comment: Calc ulation may not be valid for patients over 70 years Performed By: #### 0 007, 07966, 78095 #### [facility] [address] [place] [address], [place] GFR/1.73 sq M predicted among non-blacks MDRD (S/P/Bld) [Vol rate/Area] mL/min/{1.73_m2} Normal >60 [facility] Comment on above: Result Comment: Calc ulation may not be valid for patients over 70 years Performed By: #### 0 0071, 09828, 32771 #### [facility] [address] [place] [address], [place] Glucose [Mass/Vol] 101 mg/dL High 70-100 [facility] Comment on above: Performed By: #### 0 0071, 13071, 31758 #### [facility] [address] [place] [address], [place] Potassium [Moles/Vol] 3.5 mmol/L Normal 3.5-5.1 [facility] Comment on above: Performed By: #### 0 0071, 26374, 92751 #### [facility] [address] [place] [id number], [facility] Sodium [Moles/Vol] 141 mmol/L Normal 136-145 [facility] Comment on above: Performed By: #### 0 0071, 18413, 10828 #### [facility] [address] [place] [address], [facility] Urea nitrogen [Mass/Vol] 24 mg/dL Normal 7-25 [facility] Comment on above: Performed By: #### 0 0071, 98497, 54547 #### [facility] [address] [place] [address], [facility] CBC COMPLETE BLOOD COUNTon 0 - Erythrocyte distribution width (RBC) [Ratio] 13.8 % Normal 11.5-15.0 [facility] Comment on above: Order Comment: No: D o not add to previous draw Performed By: #### [id number] #### [facility] [address] [place] [address], [facility] Hematocrit (Bld) [Volume fraction] 37.7 % Low 39.0-50.0 [facility] Comment on above: Order Comment: No: D o not add to previous draw Performed By: #### 5 [id number] #### [facility] [address] [place] [address], [facility] Hemoglobin (Bld) [Mass/Vol] 12.9 g/dL Low 13.0-17.0 [facility] Comment on above: Order Comment: No: D o not add to previous draw Performed By: #### 5 [id number] #### [facility] [address] [place] [id number], [facility] MCH (RBC) [Entitic mass] 29.1 pg Normal 27.0-33.0 [facility] Comment on above: Order Comment: No: D o not add to previous draw Performed By: #### 5 [id number] #### [facility] [address] [place] [address], [facility] MCHC (RBC) [Mass/Vol] 34.2 g/dL Normal 32.0-35.0 [facility] Comment on above: Order Comment: No: D o not add to previous draw Performed By: #### 5 [id number] #### [facility] [address] [place] [address], [facility] MCV (RBC) [Entitic vol] 85.1 fL Normal 82.0-98.0 [facility] Comment on above: Order Comment: No: D o not add to previous draw Performed By: #### 5 [id number] #### [facility] [address] Nucleated RBC/100 WBC (Bld) [Ratio] 0 % Normal 0-0 [facility] Comment on above: Order Comment: No: D o not add to previous draw Performed By: #### 5 [id number] #### [facility] [address] [address], [facility] PLAT CNT 198 10*3/uL Normal 150-400 [facility] Comment on above: Order Comment: No: D o not add to previous draw Performed By: #### 5 [id number] #### [facility] [address] [place] [address], [facility] RBC (Bld) [#/Vol] 4.43 10*6/uL Normal 4.20-5.70 [facility] Comment on above: Order Comment: No: D o not add to previous draw Performed By: #### 5 [id number] #### [facility] [address] [place] [address], [facility] WBC (Bld) [#/Vol] 10.40 10*3/uL Normal 4.00-10.60 [facility] Comment on above: Order Comment: No: D o not add to previous draw Performed By: #### 5 [id number] #### [facility] [address] [place] [address], [facility] LIPID PROFILEon 07-02-2020 Cholesterol [Mass/Vol] 119 mg/dL Low 120-200 [facility] Comment on above: Result Comment: CHOL ESTEROL REFERENCE RANGE: 20 YEARS AND OLDER CARDIOVASCULAR RISK Less than 200 mg/dl Low Risk 200 to 239 mg/dl Borderline Risk 240 mg/dl and greater High Risk Performed By: #### 0 0071, [id number], [id number] #### [facility] [address] [place] [address], [facility] Cholesterol in HDL [Mass/Vol] 37 mg/dL Normal 23-92 [facility] Comment on above: Result Comment: Slig ht variation in normal range could be due to gender and/or age. HDL CHOLESTEROL REFERENCE RANGE: 20 years and older Cardiovascular Risk > or =60 mg/dL Desirable 40 TO 59 mg/dL Low Risk <40 mg/dL High Risk Performed By: #### 0 0071, 31551, 83860 #### [facility] [address] [place] [address], [facility] Cholesterol in LDL [Mass/Vol] 68 mg/dL Normal 0-130 [facility] Comment on above: Result Comment: LDL IS A CALCULATION LDL IS ONLY VALID IF THE TRIG IS LESS THAN 400. Performed By: #### 0 0071, 35737, 71673 #### [facility] [address] [place] [address], [facility] Cholesterol.total/Ch olesterol in HDL [Mass ratio] 3.2 {ratio} Normal 0.0-4.5 [facility] Comment on above: Performed By: #### 0 0071, 22671, 28795 #### [facility] [address] [place] [address], [place] NON-HDL CHOLESTEROL 82 mg/dL Normal [facility] Comment on above: Performed By: #### 0 0071, 35339, 04912 #### [facility] [address] [place] [address], [facility] Triglyceride [Mass/Vol] 71 mg/dL Normal 40-149 [facility] Comment on above: Result Comment: TRIG LYCERIDE REFERENCE RANGE: 20 YEARS AND OLDER CARDIOVASCULAR RISK LESS THAN 150 mg/dl LOW RISK 150 TO 199 mg/dl BORDERLINE RISK 200 mg/dl AND GREATER HIGH RISK Performed By: #### 0 0071, 69454, 28277 #### [facility] [address] [place] [address], [facility] VLDL CHOL 14 mg/dL Normal 0-40 [facility] Comment on above: Performed By: #### 0 0071, 92040, 41553 #### [facility] [address] [place] [address], [facility] MAGNESIUM BLOODon 07-02-2020 Magnesium [Mass/Vol] 1.5 mg/dL Low 1.9-2.7 [facility] Comment on above: Order Comment: No: D o not add to previous draw Performed By: #### 0 0071, 72880 #### [facility] [address] [place] [address], [facility] Magnesium [Mass/Vol] 1.3 mg/dL Low 1.9-2.7 [facility] Comment on above: Performed By: #### 1 0070, [id number] #### [facility] [address] [place] [address], [facility] TROPONIN-Ion 07-02-2020 Troponin I.cardiac [Mass/Vol] 0.03 ng/mL Normal 0.00-0.04 [facility] Comment on above: Order Comment: No: D o not add to previous draw Result Comment: REFE RENCE RANGES: 0.00 - 0.04 ng/ml NORMAL 0.05 - 0.50 ng/ml INDETERMINATE > 0.50 ng/ml CONSISTENT WITH AN M.I. Performed By: #### 0 0071, 69936, 39849 #### [facility] [address] Troponin I.cardiac [Mass/Vol] 0.03 ng/mL Normal 0.00-0.04 [facility] Comment on above: Order Comment: No: D o not add to previous draw Result Comment: REFE RENCE RANGES: 0.00 - 0.04 ng/ml NORMAL 0.05 - 0.50 ng/ml INDETERMINATE > 0.50 ng/ml CONSISTENT WITH AN M.I. Performed By: #### 1 0070, [id number] #### [facility] [address] UFH HEPARIN ASSAYon 07-03-19 UNFRACTIONATED HEPARIN 0.63 IU/mL Normal 0.30-0.70 [facility] Comment on above: Result Comment: Danica roxaban and Apixaban will interfere with the anti Xa assay used to monitor UFH and LMWH. Performed By: #### 5 [id number] #### [address] UNFRACTIONATED HEPARIN 0.48 IU/mL Normal 0.30-0.70 [facility] Comment on above: Order Comment: No: D o not add to previous draw Result Comment: [place] roxaban and Apixaban will interfere with the anti Xa assay used to monitor UFH and LMWH. Performed By: #### 5 0608 #### [facility] [address] UNFRACTIONATED HEPARIN 0.34 IU/mL Normal 0.30-0.70 [facility] Comment on above: Result Comment: Danica roxaban and Apixaban will interfere with the anti Xa assay used to monitor UFH and LMWH. Performed By: #### 5 [id number] #### [facility] [address] APTTon 07-01-2020 aPTT Coag (Bld) [Time] 39.8 s High 25.0-35.0 [facility] Comment on above: Order Comment: No: [...] PURPOSE. Performed By: #### 5 [id number] #### [facility] [address] [place] [address], [facility] BASIC METABOLIC PANELon 06-18 Calcium [Mass/Vol] 8.6 mg/dL Normal 8.6-10.3 [facility] Comment on above: Order Comment: No: D o not add to previous draw Performed By: #### 5 [id number] #### [facility] [address] [place] [id number], [facility] Chloride [Moles/Vol] 104 mmol/L Normal 98-107 [facility] Comment on above: Order Comment: No: D o not add to previous draw Performed By: #### 5 0608 #### [facility] [address] [place] [id number], [facility] CO2 [Moles/Vol] 27 mmol/L Normal 21-31 [facility] Comment on above: Order Comment: No: D o not add to previous draw Performed By: #### 5 0608 #### [facility] [address] [place] [address], [facility] Creatinine [Mass/Vol] 0.99 mg/dL Normal 0.70-1.30 [facility] Comment on above: Order Comment: No: D o not add to previous draw Performed By: #### 5 0608 #### [facility] [address] [place] [address], [facility] GFR/1.73 sq M predicted among blacks MDRD (S/P/Bld) [Vol rate/Area] mL/min/{1.73_m2} Normal >60 [facility] Comment on above: Order Comment: No: D o not add to previous draw Result Comment: Calc ulation may not be valid for patients over 70 years Performed By: #### 5 [id number] #### [facility] [address] [place] [address], [place] GFR/1.73 sq M predicted among non-blacks MDRD (S/P/Bld) [Vol rate/Area] mL/min/{1.73_m2} Normal >60 [facility] Comment on above: Order Comment: No: D o not add to previous draw Result Comment: Calc ulation may not be valid for patients over 70 years Performed By: #### 5 [id number] #### [facility] [address] [place] [address], [place] Glucose [Mass/Vol] 126 mg/dL High 70-100 [facility] Comment on above: Order Comment: No: D o not add to previous draw Performed By: #### 5 0608 #### [facility] [address] [place] [address], [place] Potassium [Moles/Vol] 2.9 mmol/L Low 3.5-5.1 [facility] Comment on above: Order Comment: No: D o not add to previous draw Performed By: #### 5 0608 #### [facility] [address] [place] [address], [place] Sodium [Moles/Vol] 141 mmol/L Normal 136-145 [facility] Comment on above: Order Comment: No: D o not add to previous draw Performed By: #### 5 0608 #### [facility] [address] [place] [address], [place] Urea nitrogen [Mass/Vol] 25 mg/dL Normal 7-25 [facility] Comment on above: Order Comment: No: D o not add to previous draw Performed By: #### 5 0608 #### [facility] [address] [place] [address], [place] CBC COMPLETE BLOOD COUNTon 0 07-01-2020 Erythrocyte distribution width (RBC) [Ratio] 13.7 % Normal 11.5-15.0 [facility] Comment on above: Order Comment: No: D o not add to previous draw Performed By: #### 5 [id number] #### [facility] [address] [place] [address], [facility] Hematocrit (Bld) [Volume fraction] 39.8 % Normal 39.0-50.0 [facility] Comment on above: Order Comment: No: D o not add to previous draw Performed By: #### 5 [id number] #### [facility] [address] [place] [id number], [facility] Hemoglobin (Bld) [Mass/Vol] 13.7 g/dL Normal 13.0-17.0 [facility] Comment on above: Order Comment: No: D o not add to previous draw Performed By: #### 5 0608 #### [facility] [address] [place] [address], [facility] MCH (RBC) [Entitic mass] 28.7 pg Normal 27.0-33.0 [facility] Comment on above: Order Comment: No: D o not add to previous draw Performed By: #### 5 0608 #### [facility] [address] [place] [address], [facility] MCHC (RBC) [Mass/Vol] 34.4 g/dL Normal 32.0-35.0 [facility] Comment on above: Order Comment: No: D o not add to previous draw Performed By: #### 5 [id number] #### [facility] [address] [place] [address], [facility] MCV (RBC) [Entitic vol] 83.3 fL Normal 82.0-98.0 [facility] Comment on above: Order Comment: No: D o not add to previous draw Performed By: #### 5 [id number] #### [facility] [address] Nucleated RBC/100 WBC (Bld) [Ratio] 0 % Normal 0-0 [facility] Comment on above: Order Comment: No: D o not add to previous draw Performed By: #### 5 0608 #### [facility] [address] [place] [address], [facility] PLAT CNT 184 10*3/uL Normal 150-400 [facility] Comment on above: Order Comment: No: D o not add to previous draw Performed By: #### 5 [id number] #### [facility] [address] [place] [address], [facility] RBC (Bld) [#/Vol] 4.78 10*6/uL Normal 4.20-5.70 [facility] Comment on above: Order Comment: No: D o not add to previous draw Performed By: #### 5 [id number] #### [facility] [address] WBC (Bld) [#/Vol] 9.34 10*3/uL Normal 4.00-10.60 [facility] Comment on above: Order Comment: No: D o not add to previous draw Performed By: #### 5 [id number] #### [facility] [address] PROTHROMBIN TIMEon 1 INR Coag (PPP) [Relative time] 1.12 {INR} Normal 0.91-1.16 [facility] Comment on above: Order Comment: No: [...] 1995;108:[id number]. Performed By: #### 5 [id number] #### [facility] [address] PT Coag (PPP) [Time] 14.4 s Normal 12.3-14.8 [facility] Comment on above: Order Comment: No: D o not add to previous draw Result Comment: ALL RESULTS MUST BE INTERPRETED WITH RESPECT TO BLOOD DRAWING ARTIFACT OR DILUTION ERROR OF ANTICOAGULANT AT THE TIME OF SAMPLING. Performed By: #### 5 [id number] #### [facility] [address] TROPONIN-Ion 07-01-2020 Troponin I.cardiac [Mass/Vol] 0.02 ng/mL Normal 0.00-0.04 [facility] Comment on above: Order Comment: No: D o not add to previous draw Result Comment: REFE RENCE RANGES: 0.00 - 0.04 ng/ml NORMAL 0.05 - 0.50 ng/ml INDETERMINATE > 0.50 ng/ml CONSISTENT WITH AN M.I. Performed By: #### 5 [id number] #### [facility] [address] [place] [address], [facility] UFH HEPARIN ASSAYon 07-02-19 21 UNFRACTIONATED HEPARIN <0.10 Critically low 0.30-0.70 [facility] Comment on above: Result Comment: Danica roxaban and Apixaban will interfere with the anti Xa assay used to monitor UFH and LMWH. RESULTS CHECKED AND CALLED. ACCURATELY READ BACK BY Jesus Manuel Velez RN at 2144. Performed By: #### 5 [id number] #### [facility] Alcira FUNES. [address] Vital Signs Date Time Vital Sign Value Performing Clinician Hal shelly 05-27-2023 15:13-0500 Body height 162.6 cm Scott Tai MD Work Phone: [facility] 05-27-2023 15:13-0500 Body mass index (BMI) [Ratio] 26.61 kg/m2 Scott Tai MD Work Phone: [facility] 05-27-2023 15:13-0500 Body weight 70.31 kg Scott Tai MD Work Phone: [facility] 05-27-2023 15:13-0500 Diastolic blood pressure 84 mm[Hg] Scott Tai MD Work Phone: [facility] 05-27-2023 15:13-0500 Heart rate 72 /min Scott Tai MD Work Phone: [facility] 05-27-2023 15:13-0500 SaO2% (BldA) [Mass fraction] 96 % Scott Tai MD Work Phone: [facility] 05-27-2023 15:13-0500 Systolic blood pressure 138 mm[Hg] Scott Tai MD Work Phone: [facility] Encounters Encounter Date Encounter Type Care Provider Facility Start: 03-22-2024 End: 03-22-2024 ambulatory [facility] Start: 01-13-2024 End: 01-13-2024 ambulatory SCOTT TAI Not Available Start: 10-05-2023 End: 10-05-2023 ambulatory [facility] Start: 09-16-2023 End: 09-16-2023 ambulatory SCOTT TAI [...] failure), NYHA class 2 (CMS/HCC); Atherosclerosis of cantwell coronary artery of cantwell heart without angina pectoris (CMS/HCC); Right cervical radiculopathy Start: 05-27-2023 End: 05-27-2023 ambulatory SCOTT TAI Not Available Start: 05-27-2023 Bamboo flowsheet Scott salguero MD Work Phone: [facility] Start: 05-27-2023 Bamboo flowsheet Scott salguero MD Work Phone: [facility] Start: 04-17-2023 End: 04-17-2023 ambulatory [facility] Start: 03-16-2023 End: 03-16-2023 ambulatory SCOTT TAI Not Available Start: 04-22-2022 End: 04-22-2022 ambulatory Driss Smith Other [facility] Other Start: 04-22-2022 Telephone encounter Driss álvarez [facility] Start: 12-19-2021 End: 12-19-2021 ambulatory Driss Smith Other [place] [facility] Other Start: 12-19-2021 Telephone encounter Driss álvarez [facility] Start: 07-26-2021 End: 07-26-[address] PRAVEEN MEADOWS Facility:[facility] Start: 05-06-2021 End: 05-06-[address] SCOTT TAI Facility:[facility] Start: 01-06-2021 End: 01-06-[address] JASKARAN CARRERA Facility:[facility] Start: 07-01-2020 End: 07-02-2020 Patient encounter procedure VIDAL ODOM Facility:[facility] Start: 06-28-2018 End: 06-29-2018 Patient encounter procedure DEFAULT PHYSICIAN Facility:[facility] Procedures Date Procedure Procedure Detail Performing Clinician Start: 10-23-2022 History of coronary artery bypass grafting History of coronary artery bypass graft Scott Tai MD Work Phone: Start: 07-02-2020 MEASUREMENT OF CARDIAC TOTAL ACTIVITY, EXTERNAL APPROACH BINDU CLINTONOURI Start: 07-02-2020 ULTRASONOGRAPHY OF RIGHT AND LEFT HEART, TRANSESOPHAGEAL SAMER Tian DYAN Plan of Treatment Date Care Activity Detail Author Start: 01-09-2024 Medicare Annual Well ness (AWV) Medicare Annual Wellness (AWV) [facility] Start: 09-16-2023 End: 09-16-2023 Patient encounter procedure 09/16/2023 8:30 AM EDT Office Visit [facility] [address] [place] [address] Scott Tai MD [address] [place] [address] [facility] Start: 07-03-2023 End: 07-03-2023 Patient encounter procedure 07/03/2023 9:30 AM EDT Office Visit [facility] [address] [place] [address] Scott Tai MD [address] [place] [address] [facility] Start: 05-27-2023 End: 05-27-2023 Patient encounter procedure 05/27/2023 3:30 PM EST Office Visit [facility] [address] [place] [address] Scott Tai MD [address] [place] [address] Arrived [facility] Comment on above: Arrived Immunizations Immunization Date Immunization Notes Care Provider Fa cility 05-21-2018 zoster vaccine recombinant Scott Tai MD Work Phone: [facility] 10-13-2017 tetanus toxoid, redu zuleika diphtheria toxoid, and acellular pertussis vaccine, adsorbed Scott Tai MD Work Phone: [facility] 10-28-2012 zoster vaccine, live Scott Tai MD Work Phone: [facility] Payers Date Payer Category Payer Medicare ANTH MEDICARE ADVANTAGE [facility] MEDICARE ADVANTAGE [id number] 2017-Present [address] [place] [address] [id number] 1959 Unknown [id number] 1942 Unknown [id number] 1942 Unknown [id number] 1942 Unknown [id number] 1942 Unknown [id number] 1942 Unknown [id number] 1942 Unknown [id number] [id number] 9 1942 Unknown [id number] [id number] 9 1942 Unknown [id number] [id number] 9 1942 Unknown [id number] [id number] 9 1942 Unknown [id number] 9 1942 Unknown [id number] 9 Unknown Social History Date Type Detail Facility Start: 12-02-2022 End: 01-08-2023 Sex Assigned At [facility] Other Start: 10-23-2022 Tobacco smoking status NHIS Never smoked tobacco [facility] Start: 10-23-2022 [...] intake : 1-2 cups per day coffee [facility] Start: 1940 Sex Assigned At Not on file [facility] Progress note 03-22-2024 Note Date & Type Note Facility 03-22-2024 Note Cardiology Clinic No te Subjective Radha Cabello is a 83 y.o. year old male patient with past medical history of CAD status post CABG, heart failure reduced ejection fraction, hypertension, and hyperlipidemia seen in follow-up. Patient is doing well. He denies any cardiac complaints or concerns. He denies any chest pain or shortness of breath. He denies any lower extremity edema, orthopnea, or paroxysmal nocturnal dyspnea. No near-syncope or syncope. Repeat echo demonstrated EF of 35 to 40%, from 40% previously. Again, he is doing well. He denies any complaints today. Patient Active Problem List Diagnosis Cardiovascular stress [...] pain, dyspnea, lower extremity edema or palpitations Cardiology ROS: 10 point ROS is performed and is negative unless otherwise specified in HPI. Objective Visit Vitals Smoking Status Former Physical [...] Rfl: carvedilol (Coreg) 25 mg tablet, Take 6.25 mg by mouth with breakfast and with evening meal., Disp: , Rfl: clopidogrel (Plavix) 75 mg tablet, Take 75 mg by mouth in the morning., Disp: , Rfl: isosorbide mononitrate ER (Imdur) 30 mg 24 hr tablet, Use 1 tablet in the mouth or throat 1 (one) time each day., Disp: , Rfl: lisinopril 40 mg tablet, Take 20 mg by mouth in the morning., Disp: , Rfl: nitroglycerin (Nitrostat) 0.4 mg SL tablet, Place 1 tablet by sublingual route as needed., Disp: , Rfl: pantoprazole (ProtoNix) 40 mg EC tablet, Use 1 tablet in the mouth or throat 1 (one) time each day., Disp: , Rfl: sildenafil (Viagra) 50 mg tablet, Take 50 mg by mouth if needed for erectile dysfunction., Disp: , Rfl: spironolactone (Aldactone) 25 mg tablet, Take 1 tablet (25 mg) by mouth in the morning. (Patient not taking: Reported on 10/05/2023), Disp: 90 tablet, Rfl: 3 Recent Labs [...] regurg Coronary angiogram: 03/20/2017 Patent 3 out (more content not included)... [facility] Progress note 10-05-2023 Note Date & Type Note Facility 10-05-2023 Note Cardiology Clinic No te Subjective Radha Cabello is a 83 y.o. year old male patient with past medical history of CAD status post CABG, heart failure reduced ejection fraction, hypertension, and hyperlipidemia seen in follow-up. Patient here for 6 mo follow up CAD, HFrEF, hypertension, and hyperlipidemia. He was admitted to [facility] in May 2023 for acute hypotension. Lisinopril [...] size and sys (more content not included)... [facility] History of Present illness Narrative 05-27-2023 Scott Tai MD - 05/27/2023 3:30 PM EST Note Date & Type Note Facility 05-27-2023 History of Presen t illness Narrative HPI Follow-up Additional comments: Went to [facility] ER 05/22/23 was kept for observation dx: hypotension coreg and lisinopril doses decreased and advised to stop spironolactone Last edited by Viviana Martini LPN on 05/27/2023 3:27 PM. Subjective Patient ID: Skip Cabello is a 82 y.o. male who presents for Follow-up (Went to [facility] ER 05/22/23 was kept for observation dx: hypotension coreg and lisinopril doses decreased and advised to stop spironolactone) and Arm Pain. Flowsheet Row Patient [facility] with Shu ThursdayDELICIA Discharge Information ED or Hospital Discharge? ED Patient has been contacted within 1 week of being seen in the ED Yes Discharge Date 05/22/23 Discharge Hospital [facility] Discharged To: Home Setting Engagement Call Start Time 08 Medications Discharge medications reviewed and reconciled from [...] Advance Care Planning? No Call End Time 0823 Pt has been checking b/p at home [...] nitroglycerin (Nitrostat) 0.4 MG SL tablet pancrelipase, Bfl-Bvoo-Ktbr, (Creon) [id number] units capsule Take by mouth 3 (three) [...] 07/01/2020 Electrolyte Imbalance, NSTEMI Coronary atherosclerosis of cantwell coronary artery (CMS/HCC) Diverticulosis 12/2019 Heart disease History of cholecystectomy 2003 History of echocardiogram 2020 EF 40% Hyperlipemia (CMS/HCC) Hypertension (CMS/HCC) 06/2014 Pancreatitis Past Surgical History: Procedure Laterality Date ANGIOPLASTY APPENDECTOMY 1960 CHOLECYSTECTOMY COLONOSCOPY 2019 CORONARY ARTERY BYPASS GRAFT 2009 [facility] schwann EGD 2019 HERNIA REPAIR 2003 Visit [...] failure), NYHA class 2 (CMS/HCC) Atherosclerosis of [place]well coronary artery of cantwell heart without angina pectoris (CMS/HCC) Right cervical radiculopathy - methylPREDNISolone (Medrol Dospak) 4 MG tablets; Follow schedule on package instructions Follow up in about 4 weeks (around 06/24/2023) for Recheck, F/U med changes. documented in this encounter [facility] Progress note 04-17-2023 Note Date & Type Note Facility 04-17-2023 Note Patient here for 1 m o follow up echo and labs. Still denies chest pain, SOB, and palpitations. Was lightheaded this morning. Says his BP is still up and down . Review of Systems HENT: Positive for hearing loss. Neurological: Positive for light-headedness. All other systems reviewed and are negative. [facility] Progress note 04-17-2023 Note Date & Type Note Facility 04-17-2023 Note Cardiology Clinic No te Subjective Radha [...] regurg Coronary a (more content not included)... [facility] Evaluation note 04-22-2022 Note Date & Type Note Facility 04-22-2022 Evaluation note Encounter Date Diagnosis Assessment Notes Apr, Liver lesion, right lobe (ICD-10 - K76.9) [facility] Other Evaluation note Note Date & Type Note Facility Evaluation note No Information [facility] Other Evaluation note Note Date & Type Note Facility Evaluation note Diagnosis Benign essential hypertension (CMS/HCC)- Primary Essential hypertension, benign Chronic systolic CHF (congestive heart failure), NYHA class 2 (CMS/HCC) Atherosclerosis of [place] coronary artery of [place] heart without angina pectoris (CMS/HCC) Right cervical radiculopathy documented in this encounter [facility] History general Narrative - Reported Note Date & Type Note Facility History general Narrative - Reported Type Medical History GERD Medical History HTN Medical History hyperlipidemia Medical History CHF Surgical History tonsillectomy Surgical History cholecystectomy Surgical History triple bypass Surgical History appendectomy Hospitalization History see surgical history [facility] Other Summary Purpose Family History No Family [...] Records Found Hospital Course Note MR#: [id number] [facility] Pt. Name: Radha Cabello Admitted: 07/01/2020 Discharged: [...] and content) DATE CREATED AUTHOR 06/29/2018 [facility] DATE CREATED AUTHOR AUTHOR'S ORGANIZ ATION 07/13/2020 [facility] DATE CREATED AUTHOR AUTHOR'S ORGANIZ ATION 06/17/2021 [facility] DATE CREATED AUTHOR AUTHOR'S ORGANIZ ATION 07/31/2021 [facility] DATE CREATED AUTHOR AUTHOR'S ORGANIZ ATION 09/23/2021 [facility] DATE CREATED AUTHOR AUTHOR'S ORGANIZ ATION 01/15/2024 [facility] DATE CREATED AUTHOR AUTHOR'S ORGANIZ ATION 03/24/2024 [facility] REASON FOR VISIT (unrecogniz ed section and content) Reason Comments Follow-up Went to [facility] ER 4 was kept for observation dx: hypotension coreg and lisinopril doses decreased and advised to stop spironolactone Arm Pain Care Teams (unrecognized sec tion and content) [employer] Relationship Specialty Start Date End Date Scott Tai MD [address] [facility] [address] [place] [address] PCP - Lashon PASCUAL 04/20/21 Scott Tai MD [address] [facility] [address] [place] [address] PCP - General Internal Medicine 10/22/22 [employer] Relationship Specialty Start Date End Date Scott Tai MD [address] [facility] [address] [place] [id number] PCP - Lashon PASCUAL 04/20/21 Scott Tai MD [address] [facility] [address] [place] [address] PCP - General Internal Medicine 10/22/22 FOR [...] BE BASED ON THE PRIMARY CLINICAL RECORDS. [employer] provides no warranty or guarantee of the accuracy or completeness of information in this document.
[2024-03-30 10:57] LABS: Anion Gap 13.2; BUN Creatinine Ratio 20.3; Calcium 9.2 mg/dL (8.5-10.1); Carbon Dioxide 28.1 mmol/L (21.0-32.0); Chloride 107 mmol/L (98-107); Estimated GFR (African America 58 (>=60 mL/min/1.73m^2); Estimated GFR (Non-African Ame 47 (>=60 mL/min/1.73m^2); Glucose 89 mg/dL (74-106); Potassium 4.3 mmol/L (3.5-5.1); Sodium 144 mmol/L (136-145)
== END 2024-03-30 08:37 | disposition home or self-care (01) ==
LOC: LAB 08:37
PROVIDERS: PCP Internal Medicine; Visit Provider Internal Medicine Cardiovascular Disease
DX: I11.0 Hypertensive heart disease with heart failure (principal)
CPT/HCPCS: 36415; 80048

== ENCOUNTER 2024-07-01 21:23 | Emergency (ER) | payer MEDICARE, SELFPAY ==
[2024-07-01] VITALS (15 sets, daily range): BP systolic 166–184; BP diastolic 81–99; PULSE 91; TEMP 37.4; O2SAT 92–97; BMI 25.7
--- OUTSIDE RECORDS SUMMARY | 2024-07-01 21:29 | XMS_ITS | CCD ---
Author Organization [facility] Care Team Providers Care Nurse Quality Name Role Phone PHYSICIAN, DEFAULT Admitting Unavailable PHYSICIAN, DEFAULT Attending Unavailable SCOTT TAI Primary Care Unavailable VIDAL ODOM Attending Unavailable VIDAL ODOM Admitting Unavailable SCOTT TAI Primary Care Unavailable PADMA PRADO Referring Unavailable [place] Procedure Practitioner UnavailBINDU [place] Surgeon Unavailable PAY, [...] Driss Smith Unavailable Scott Tai MD Unavailable [phone] Scott Tai MD Primary Care Provider CANDI QUIROS Attending Unavailable CANDI QUIROS Attending Unavailable CANDI QUIROS Attending Unavailable SCOTT TAI Attending Unavailable RONNIE OLVERA Attending Unavailable SCOTT TAI Attending Unavailable SCOTT TAI Attending Unavailable SCOTT TAI Attending Unavailable JIMMY ALFARO Attending Unavailable Allergies Allergy Classification Reported Allergen(s) Allergy Type Date of Onset Reaction(s) Facility (1 source) 98163,00 Drug allergy (disorder) 02-21-2010 [facility] Repository Medications Current Medications Medication Drug Class(es) Dates Sig (Normalized) Sig (Original) amylase 342474 unt / lipase 49982 unt / protease 097118 unt delayed release oral capsule (5 sources) Start: 10-02-2021 take 1 capsule by mouth every eight hours Creon [id number] UNIT 1 CAPSULE Orally THREE TIMES A DAY for 30 days Sep, Active take 88606-68112 [IU ] by mouth three times daily at mealtime pancrelipase, Qsn-Denz-Tbdz, (Creon) 11544-06053 units capsule Take by mouth 3 (three) times a day with meals. 0 Active aspirin 81 mg delayed release oral tablet (12 sources) Platelet Aggregation Inhibitor, Nonsteroidal Anti-inflammatory Drug take 1 tablet by mouth once daily aspirin 81 MG EC tablet take 1 tablet (81MG) by oral route every day Oral Active atorvastatin 40 mg oral tablet (12 sources) HMG-CoA Reductase Inhibitor Start: take 1 tablet by mouth once daily at bedtime atorvastatin (Lipitor) 40 MG tablet Indications: Mixed hyperlipidemia (CMS/HCC) TAKE 1 TABLET BY MOUTH EVERYDAY AT BEDTIME 100 tablet 3 04/05/2024 Active Start: 04-21-2023 take 1 tablet by antonio th once daily at bedtime atorvastatin (Lipitor) 40 MG tablet Indications: Mixed hyperlipidemia (CMS/HCC) TAKE 1 TABLET BY MOUTH EVERYDAY AT BEDTIME 90 tablet 3 04/21/2023 Active take 1 tablet by antonio th every twenty-four hours Atorvastatin Calcium 40 MG 1 tablet Orally Once a day Active carvedilol 6.25 mg oral tablet (12 sources) alpha-Adrenergic Kary, beta-Adrenergic Kary Start: 12-24-2023 take 1 tablet by mouth at mealtime carvedilol (Coreg) 6.25 MG tablet Indications: Chronic systolic CHF (congestive heart failure), NYHA class 2 (CMS/HCC) TAKE 1 TABLET BY MOUTH IN THE MORNING AND IN THE EVENING WITH MEALS 180 tablet 1 12/24/2023 Active Start: 05-23-2023 take 1 tablet by antonio th in the morning carvedilol (Coreg) 12.5 MG tablet Take 12.5 mg by mouth in the morning and 12.5 mg in the evening. Take with meals. 0 05/23/2023 Active take 1 tablet by antonio th every twelve hours Carvedilol 25 MG 1 tablet with food Orally Twice a day Active clopidogrel 75 mg oral tablet (12 sources) P2Y12 Platelet Inhibitor Start: 07-20-2023 take 1 tablet by mouth once daily clopidogrel (Plavix) 75 MG tablet Indications: Atherosclerosis of [place] coronary artery of [place] heart without angina pectoris (CMS/HCC) TAKE 1 TABLET BY MOUTH EVERY DAY FOR 100 DAYS 100 tablet 3 07/20/2023 Active clopidogrel (Jens vix) 75 MG tablet 1 (one) time each day at the same time. 0 Active hydrALAZINE hydrochloride 25 mg oral tablet (2 sources) Arteriolar Vasodilator take 1 tablet by mouth every eight hours hydrALAZINE HCl 25 MG 1 tablet with food Orally Three times a day Active 24 hr isosorbide mononitrate 30 mg extended release oral tablet (12 sources) Nitrate Vasodilator Start: take 1 tablet by mouth once daily isosorbide mononitrate ER (Imdur) 30 MG 24 hr tablet Indications: Chronic systolic CHF (congestive heart failure), NYHA class 2 (CMS/HCC) TAKE 1 TABLET BY MOUTH EVERY DAY 90 tablet 3 06/09/2023 Active take 1 tablet by mouth once mala y isosorbide mononitrate ER (Imdur) 30 MG 24 hr tablet TAKE 1 TABLET BY MOUTH EVERY DAY for 90 0 Active lisinopril 20 mg oral tablet (14 sources) Angiotensin Converting Enzyme Inhibitor Start: 12-12-2023 take 1 tablet by mouth once daily lisinopril 20 MG tablet Take 20 mg by mouth Daily 12/12/2023 Active Start: 06-08-2023 End: 01-13-2024 take 1 tablet by mouth in the morning lisinopril 10 MG tablet Indications: Benign essential hypertension (CMS/HCC) Take 1 tablet (10 mg) by mouth in the morning. 06/08/2023 01/13/2024 Discontinued (Dose adjustment) Start: 05-23-2023 take 1 tablet by antonio th in the morning lisinopril 20 MG tablet Take 20 mg by mouth in the morning. 0 05/23/2023 Active take 1 tablet by antonio th every twenty-four hours Lisinopril 40 MG 1 tablet Orally Once a day Active Magnesium (10 sources) take 1 capsule by mo uth once daily Magnesium 400 MG capsule Take 1 capsule by mouth 1 (one) time each day. Active take 1 capsule by mouth once zheng ly Magnesium 400 MG capsule Take 1 capsule by mouth 1 (one) time each day. 0 Active methylPREDNISolone (2 sources) Corticosteroid Start: 05-27-2023 End: 06-03-2023 methylPREDNISolone (Medrol Dospak) 4 MG tablets Indications: Right cervical radiculopathy Follow schedule on package instructions 21 tablet 0 05/27/2023 06/03/2023 Active Multiple Vitamins-Minerals (PRESERVISION AREDS 2 PO) (10 sources) take 1 tablet by mouth in the morning Multiple Vitamins-Minerals (PRESERVISION AREDS 2 PO) Take 1 tablet by mouth in the morning. Active take 1 tablet by mouth in the mo rning Multiple Vitamins-Minerals (PRESERVISION AREDS 2 PO) Take 1 tablet by mouth in the morning. 0 Active nitroglycerin 0.4 mg sublingual tablet (12 sources) Nitrate Vasodilator Start: 11-13-2021 nitroglycerin (Nitrostat) 0.4 MG SL tablet 11/13/2021 Active pantoprazole 40 mg delayed release oral tablet (8 sources) Proton Pump Inhibitor Start: 03-16-2023 End: 03-15-2024 take 1 tablet by mouth in the morning pantoprazole (ProtoNix) 40 MG EC tablet Indications: Dyspepsia Take 1 tablet (40 mg) by mouth in the morning. Do not crush, chew, or split.. 90 tablet 3 03/16/2023 01/13/2024 Discontinued take 1 tablet by antonio th every twenty-four hours Pantoprazole Sodium 40 MG 1 tablet Orall y Once a day Active sildenafil 50 mg oral tablet (3 sources) Phosphodiesterase 5 Inhibitor Start: 09-16-2023 End: 09-15-2024 take 1 tablet by mouth once daily as needed sildenafil (Viagra) 50 MG tablet Indications: Erectile dysfunction, unspecified erectile dysfunction type Take 1 tablet (50 mg) by mouth Daily as needed for erectile dysfunction (Do not take on Nitroglycerine on the same day this is taken) 10 tablet 11 09/16/2023 01/13/2024 Discontinued spironolactone 25 mg oral tablet (2 sources) Aldosterone Antagonist Spironola ctone 25 MG 1 tablet Orally Active tadalafil 20 mg oral tablet (4 sources) Phosphodiesterase 5 Inhibitor Start: 02-11-2024 End: 05-04-2024 take 1 tablet by mouth once daily as needed tadalafil (Cialis) 20 MG tablet Indications: Impotence of organic origin Take 1 tablet (20 mg) by mouth Daily as needed for erectile dysfunction 10 tablet 02/11/2024 05/04/2024 Discontinued (Therapy completed) Problems Active Problems Problem Classification Problem Date Documented Da te Episodic/Chronic Abdominal pain (16 sources) Epigastric pain; Translations: [Unspecified abdominal pain] Onset: 07-26-2021 Episodic Administrative/social admission (2 sources) Patient encounter status; Translations: [Other specified counseling] 01-13-2024 Episodic Cardiac dysrhythmias (12 sources) Cardiac arrhythmia; Translations: [Cardiac arrhythmia, unspecified] Onset: 10-23-2022 10-23-2022 Chronic Cardiac dysrhythmias (1 source) Bradycardia, unspecified; Translations: [BRADYCARDIA UNSPECIFIED] Onset: 05-08-2021 Episodic Cataract (12 sources) Nuclear sclerosis; Translations: [Age-related nuclear cataract, bilateral] Onset: 10-23-2022 10-23-2022 Chronic Chronic kidney disease (16 sources) Chronic kidney disease stage 3A ; Translations: [Stage 3a chronic kidney disease (HCC)] Onset: 10-23-2022 10-23-2022 Chronic Congestive heart failure; nonhypertensive (20 sources) Chronic systolic heart failure; Translations: [Chronic systolic (congestive) heart failure] Onset: 10-23-2022 10-23-2022 Chronic Coronary atherosclerosis and other heart disease (20 sources) Old myocardial infarction; Translations: [Atherosclerotic heart disease of [place] coronary artery without angina pectoris] Onset: 07-30-2021 Resolved: 01-08-2023 05-11-2023 Chronic Coronary atherosclerosis and other heart disease (1 source) Presence of aortocoronary bypass graft; Translations: [PRESENCE AORTOCORONARY BYPASS GRAFT] Onset: 07-30-2021 Episodic Disorders of lipid metabolism (14 sources) Hyperlipidemia; Translations: [Hyperlipidemia, unspecified] Onset: 10-23-2022 10-23-2022 Chronic Diverticulosis and diverticulitis (14 sources) Diverticulosis of colon; Translations: [Diverticulosis of large intestine without perforation or abscess without bleeding] Onset: 10-23-2022 10-23-2022 Chronic Essential hypertension (20 sources) Essential (primary) hypertension; Translations: [Benign essential hypertension] Onset: 05-06-2021 Resolved: 01-08-2023 Chronic Heart valve disorders (20 sources) Mitral valve regurgitation; Translations: [Nonrheumatic mitral (valve) insufficiency] Onset: 10-23-2022 10-23-2022 Chronic Hyperplasia of prostate (14 sources) Benign prostatic hyperplasia; Translations: [Benign prostatic hyperplasia with lower urinary tract symptoms] Onset: 10-23-2022 10-23-2022 Chronic Hypertension with complications and secondary hypertension (4 sources) Hypertensive heart disease with heart failure; Translations: [Secondary hypertension] Onset: 03-22-2024 Chronic Other aftercare (1 source) manager intermediate (current) use of aspirin; Translations: [PAPER NOVELTY MAKER CURRENT USE OF ASPIRIN] Onset: 07-30-2021 Episodic Other aftercare (1 source) Other termite technician (current) drug therapy; Translations: [OTH PAPER NOVELTY MAKER CURRENT DRUG THERAPY] Onset: 07-30-2021 Episodic Other aftercare (1 source) care home (current) use of antithrombotics/anti platelets; Translations: [PAPER NOVELTY MAKER ANTITHROMBOT/ANTIPLA TLETS] Onset: 05-08-2021 Episodic Other and ill-defined heart disease (14 sources) Bilateral enlargement of atria; Translations: [Cardiomegaly] Onset: 10-23-2022 10-23-2022 Chronic Other ear and sense organ disorders (12 sources) Sensorineural hearing loss, bilateral; Translations: [Sensorineural hearing loss, bilateral] Onset: 10-23-2022 10-23-2022 Chronic Other ear and sense organ disorders (10 sources) Bilateral hearing loss; Translations: [Unspecified hearing loss, bilateral] Onset: 02-19-2023 03-16-2023 Chronic Other liver diseases (2 sources) Liver disease, unspecified; Translations: [LIVER DISEASE UNSPECIFIED] Onset: 07-30-2021 Chronic Other liver diseases (2 sources) Lesion of liver; Translations: [Liver disease, unspecified] Chronic Other male genital disorders (10 sources) Secondary erectile dysfunction; Translations: [Male erectile dysfunction, unspecified] Onset: 10-23-2022 10-23-2022 Chronic Other nervous system disorders (12 sources) Carpal tunnel syndrome of right wrist; Translations: [Carpal tunnel syndrome, right upper limb] Onset: 10-23-2022 10-23-2022 Chronic Other non-epithelial cancer of skin (20 sources) Basal cell carcinoma of back; Translations: [Basal cell carcinoma of skin of other part of trunk] Onset: 10-23-2022 10-23-2022 Episodic Other screening for suspected conditions (not mental disorders or infectious disease) (20 sources) Other specified abnormal findings of blood chemistry; Translations: [Raised prostate specific antigen] Onset: 07-30-2021 Resolved: 01-08-2023 10-23-2022 Episodic Pancreatic disorders (not diabetes) (20 sources) Recurrent pancreatitis; Translations: [Other chronic pancreatitis] Onset: 10-23-2022 Resolved: 01-08-2023 10-23-2022 Chronic Residual codes; unclassified (1 source) Acquired absence of other specified parts of digestive tract; Translations: [ACQ ABSENCE OTH PART DIGESTV TRACT] Onset: 07-30-2021 Episodic Retinal detachments; defects; vascular occlusion; and retinopathy (14 sources) Nonexudative age-related macular degeneration; Translations: [Nonexudative [...] Da te Episodic/Chronic Blindness and vision defects (10 sources) Bilateral regular astigmatism; Translations: [Regular astigmatism, bilateral] Onset: 03-16-2023 03-16-2023 Episodic Genitourinary symptoms and ill-defined conditions (10 sources) Nocturia; Translations: [Nocturia] Onset: 10-23-2022 10-23-2022 Episodic Malaise and fatigue (10 sources) Fatigue; Translations: [Other fatigue] Onset: 08-21-2022 Resolved: 01-08-2023 01-08-2023 Episodic Nonspecific chest pain (10 sources) Chest pain; Translations: [Chest pain, unspecified] Onset: 08-21-2022 Resolved: 01-08-2023 01-08-2023 Episodic Other circulatory disease (10 sources) H/O: hypertension; Translations: [Personal history of other diseases of the circulatory system] Onset: 08-21-2022 Resolved: 01-08-2023 01-08-2023 Episodic Other lower respiratory disease (1 source) Shortness of breath; Translations: [SHORTNESS OF BREATH] Onset: 01-21-2021 Episodic Other lower respiratory disease (10 sources) Dyspnea; Translations: [Dyspnea, unspecified] Onset: 08-21-2022 10-23-2022 Episodic Other nutritional; endocrine; and metabolic disorders (10 sources) Body mass index 25-29 - overweight; Translations: [Overweight] Onset: 10-23-2022 10-23-2022 Episodic Pancreatic disorders (not diabetes) (12 sources) Pancreatic insufficiency; Translations: [Other specified diseases of pancreas] Onset: 10-23-2022 10-23-2022 Episodic Results Test Name Value Interpretation Reference Range Facility 36on 03-31-2024 36 Regarding labs from 03/30/2024: Per Dr. Adkins, please inform patient to STOP hydrochlorothiazide but stay on Farxiga. He needs to have repeat BMP in 3-4 weeks. Thank you. [facility] ALL BASIC METABOLIC PANELon 03-30-2024 Anion gap [Moles/Vol] 13.2 mmol/L [facility] Calcium [Mass/Vol] 9.2 mg/dL 8.5 - 10. 1 mg/dL [facility] Chloride [Moles/Vol] 107 mmol/L 98 - 107 mmol/L [facility] CO2 [Moles/Vol] 28.1 mmol/L 21.0 - 32.0 mmol/L [facility] Creatinine [Mass/Vol] 1.43 mg/dL High 0.70 - 1.30 mg/dL [facility] GFR/1.73 sq M.predicted CKD-EPI (S/P/Bld) [Vol rate/Area] 58 Low >=60 mL/min/1.73m 2 [facility] Glucose [Mass/Vol] 89 mg/dL 74 - 106 mg/dL [facility] Interpretation and review of laboratory results Abnormal [facility] Potassium [Moles/Vol] 4.3 mmol/L 3.5 - 5.1 mmol/L [facility] Sodium [Moles/Vol] 144 mmol/L 136 - 145 mmol/L [facility] TBH EGFR-NON AF MONTENEGRIN 47 Low >=60 mL/min/1.73m 2 [facility] Urea nitrogen [Mass/Vol] 29 mg/dL High 7.0 - 18.0 mg/dL [facility] Urea nitrogen/Creatinine [Mass ratio] 20.3 mg/mg [facility] Healthcare Office Visiton 03-22-2024 Follow-up visit [id number] Davina Cabello 1940 M [facility] Problem Relation Age of Onset Coronary artery disease Father Hypertension Father Family Status - Relation Status Age at Father Level of Service:84967 [place] OFFICE/OUTPATIENT ESTABLISHED MOD MDM 30 MIN Normal [facility] Office Visiton 10-05-2023 Follow-up visit [id number] Davina Cabello 1940 M [facility] 10/05[facility]2023 [facility] History Problem Relation Age of Onset Coronary artery disease Father Hypertension Father Family Status - Relation Status Age at Father Level of Service:93085 [place] OFFICE/OUTPATIENT ESTABLISHED MOD MDM 30 MIN Normal [facility] Office Visiton 04-17-2023 Follow-up visit [id number] Davina Cabello 1940 [facility] Provider Department Center 04/17/2023 CANDI JAVIER Family History Problem Relation Age of Onset Coronary artery disease Father Hypertension Father Family Status - Relation Status Age at Father Level of Service:20672 [place] OFFICE/OUTPATIENT ESTABLISHED MOD MDM 30 MIN Normal [facility] ISTAT XRay CREon 09-20-2021 Creatinine [Mass/Vol] 0.9 mg/dL Normal 0.6-1.3 [facility] Comment on above: Result Comment: ER/E SD physician is notified/shown all ISTAT results. Critical values may be confirmed by laboratory testing if deemed necessary by ER attending doctor. Performed By: #### I SCRE #### [facility] [address] [place] [address] Point of Care testing , ISTAT GFR ( > 60 Normal [facility] Comment on above: Result Comment: GFR estimated reference range: According to KDOQI guidelines, <60 ml/min/1.73m2 is sufficient to diagnose a patient with chronic kidney disease. PERFORMED BY: [place] [address] PATHOLOGIST AUTOMOTIVE DESIGN DRAFTER CORINNA MCDERMOTT M.D. Performed By: #### I SCRE #### [facility] [address] [place] [address] Point of Care testing , ISTAT GFR (Non- Am > 60 Normal [facility] Comment on above: Performed By: #### I SCRE #### [facility] [address] [place] [address] Point of Care testing , MR abdomen wo/w conon 2021 MR abdomen wo/w con [facility] Main [place] [address] [place] [address] MRI Report Signed Patient: Davina Cabello MR#: [id number] : 1940 Acct:[id number] Age/Sex: 81 / M ADM Date: 09/20/21 Loc: [facility] Room: Type: [facility] Attending Dr: Hasmukh Morelos DO Ordering Provider: [...] Ayala Jr., D.OErika09/20/2021 11:13 AM Dictation Location: [place] [address] Transcribed By: [facility] 09/20/21 1113 Dictated By: Layton Ayala Jr, DO 09/20/21 1057 Signed By: 09/20/21 1113 [facility] CULTURE URINEon 07-28-2021 CULTURE URINE Isolate 1 Enterobacter cloacae 50,000 cfu/ml of ORGANISM 1 Enterobacter cloacae ANTIBIOTIC M.I.C RX STATUS Piperacillin/Tazobactam <=4 S F Cefazolin >=64 R F Ceftazidime <=1 S F Ceftriaxone <=1 S F Ertapenem <=0.5 S F Imipenem 1 S F Amikacin <=2 S F Gentamicin <=1 S F Tobramycin <=1 S F Ciprofloxacin <=0.25 S F Levofloxacin <=0.12 S F Nitrofurantoin 128 R F Trimethoprim/Sulfametho xazole <=20 S F Normal [facility] Comment on above: Performed By: #### U RCX ####[facility] [address] [place] [address] CT ABD/PELV W CONon 07-28-19 [...] filled with ingested debris, suggestive of slow transit/gastroparesis. There is a 4.2 cm periampullary duodenal [...] terminal ileum. Imaging findings are suggestive of infectious/inflammatory colitis. The appendix could not be confidently [...] duodenal diverticulum. Bilateral renal cortical cysts. No hydronephrosis/nephroli thiasis. Right inguinal hernia containing portion of bladder dome in it. Fat-containing left-sided inguinal hernia. Prostatomegaly. Imaging findings are suggestive of infectious/inflammatory enterocolitis. Colonic diverticulosis. Electronically authenticated by: ANDRES GOINS Date: 2021-07-27 12:43 Normal [facility] CBC AUTO DIFFon 07-26-2021 BASO # 0.1 103/ul Normal 0.0-0.1 [facility] Comment on above: Performed By: #### C BC ####[facility] [address] [place] [id number] Pollock Basophils/100 WBC (Bld) 0.5 % Normal 0.2-2.0 [facility] Comment on above: Performed By: #### C BC ####[facility] [address] [place] [address]Dr. Nelson Pollock EO # 0.2 103/ul Normal 0.0-0.7 [facility] Comment on above: Performed By: #### C BC ####[facility] [address] [place] [address]Dr. Nelson Pollock Eosinophils/100 WBC (Bld) 2.1 % Normal 0.9-7.0 [facility] Comment on above: Performed By: #### C BC ####[facility] [address] [place] [address]Dr. Nelson Pollock Erythrocyte distribution width (RBC) [Ratio] 13.7 % Normal 11.0-15.0 [facility] Comment on above: Performed By: #### C BC ####[facility] [address] [place], [place] [address]Dr. Nelson Pollock Hematocrit (Bld) [Volume fraction] 42.8 % Normal 42.0-54.0 [facility] Comment on above: Performed By: #### C BC ####[facility] [address] [place], [place] [address]Dr. Nelson Pollock Hemoglobin (Bld) [Mass/Vol] 14.5 g/dL Normal 14.0-18.0 [facility] Comment on above: Performed By: #### C BC ####[facility] [address] [place], [place] [address]Dr. Nelson Pollock IG # 0.04 10e3/ul Critically high 0.00-0.03 [facility] Comment on above: Performed By: #### C BC ####[facility] [address] [place], [place] [address]Dr. Nelson Pollock IG % 0.4 % Normal 0.0-0.5 [facility] Comment on above: Performed By: #### C BC ####[facility] [address] [place], [place] [address]DrErika Pollock LYMPH # 1.7 103/ul Normal 1.2-3.8 [facility] Comment on above: Performed By: #### C BC ####[facility] [address] [place] [id number]. Nelson Pollock Lymphocytes/100 WBC (Bld) 15.6 % Critically low 20.5-60.0 [facility] Comment on above: Performed By: #### C BC ####[facility] [address] [place] [id number] Pollock MANUAL DIFF REQ NO Normal [facility] Comment on above: Performed By: #### C BC ####[facility] [address] [place] [phone]. Nelson Pollock MCH (RBC) [Entitic mass] 29.2 pg Normal 25.9-34.0 [facility] Comment on above: Performed By: #### C BC ####[facility] [address] [place], [place] [address]Dr. Nelson Pollock MCHC (RBC) [Mass/Vol] 33.9 g/dL Normal 29.9-35.2 [facility] Comment on above: Performed By: #### C BC ####[facility] [address] [place] [id number] Pollock MCV (RBC) [Entitic vol] 86.1 fL Normal 80.0-94.0 [facility] Comment on above: Performed By: #### C BC ####[facility] [address] [place] [address]Dr. Nelson Pollock MONO # 0.8 103/ul Normal 0.3-0.8 [facility] Comment on above: Performed By: #### C BC ####[facility] [address] [place] [id number] Pollock Monocytes/100 WBC (Bld) 7.3 % Normal 1.7-12.0 [facility] Comment on above: Performed By: #### C BC ####[facility] [address] [place] [id number] Pollock NEUT # 8.1 103/ul Critically high 1.4-6.5 [facility] Comment on above: Performed By: #### C BC ####[facility] [address] [place] [address]Dr. Nelson Pollock Neutrophils/100 WBC (Bld) 74.1 % Normal 43.0-75.0 [facility] Comment on above: Performed By: #### C BC ####[facility] [address] [place] [address]Dr. Nelson Pollock Platelet mean volume (Bld) [Entitic vol] 10.2 fL Normal 9.5-13.5 [facility] Comment on above: Performed By: #### C BC ####[facility] [address] [place] [address]Dr. Nelson Pollock PLT 191 103/ul Normal 150-450 [facility] Comment on above: Performed By: #### C BC ####[facility] [address] [place] [address]Dr. Nelson Pollock RBC 4.97 106/ul Normal 4.70-6.10 [facility] Comment on above: Performed By: #### C BC ####[facility] [address] [place] [address]Dr. Nelson Pollock WBC 11.0 103/ul Normal 4.0-11.0 [facility] Comment on above: Performed By: #### C BC ####[facility] [address] [place] [address]DrErika Pollock ER URINE PROFILEon 2 Bilirubin Ql (U) Negative Normal NEGATIVE [facility] Comment on above: Performed By: #### DAT DIALLORO #### [facility] [address] [address] [address] Nelson Pollock Clarity (U) SL CLOUDY Abnormal CLEAR [facility] Comment on above: Performed By: #### DAT DIALLORO #### [facility] [address] [address] [address] Nelson Pollock Color (U) LT. YELLOW Normal YELLOW [facility] Comment on above: Performed By: #### E RUR, UMICRO #### [facility] [address] [place] [address] Dr. Nelson FELTON A micrscopic examination will be performed if indicated. Normal [facility] Comment on above: Performed By: #### Anny ZAMORA UMICRO #### [facility] [address] [place] [address] Dr. Nelson Pollock Glucose Ql (U) Negative Normal NEGATIVE [facility] Comment on above: Performed By: #### Anny ZAMORA UMICRO #### [facility] [address] [place] [address] Dr. Nelson Pollock Hemoglobin Ql (U) Negative Normal NEGATIVE The [facility] Comment on above: Performed By: #### Anny ZAMORA UMICRO #### [facility] [address] [place] [address] Dr. Nelson Pollock Ketones Ql (U) Negative Normal NEGATIVE [facility] Comment on above: Performed By: #### Anny ZAMORA UMICRO #### [facility] [address] [place] [address] Dr. Nelson Pollock LEUKOCYTES SMALL Abnormal NEGATIVE [facility] Comment on above: Performed By: #### Anny ZAMORA UMICRO #### [facility] [address] [place] [address] Dr. Nelson Pollock Nitrite Ql (U) Negative Normal NEGATIVE [facility] Comment on above: Performed By: #### Anny ZAMORA UMICRO #### [facility] [address] [place] [address] Dr. Nelson Pollock pH (U) 5.0 [pH] Normal 5-9 [facility] Comment on above: Performed By: #### MCKAY DIALLOICRO #### [facility] [address] [place] [address] Dr. Nelson Pollock SPEC GRAVITY <=1.005 Abnormal 1.005-<=1.025 [facility] Comment on above: Performed By: #### Anny ZAMORA UMJOSEPRO #### [facility] [address] [place] [address] Dr. Nelson Pollock UA PROTEIN Negative Normal NEGATIVE/ TRACE [facility] Comment on above: Performed By: #### DAT DIALLORO #### [facility] [address] [place] [address] Dr. Nelson Pollock UR MICRO IND INDICATED Normal [facility] Comment on above: Performed By: #### Anny ZAMORA UMICRO #### [facility] [address] [place] [address] Dr. Nelson Pollock Urobilinogen Qn (U) 0.2 {Christopher'U}/dL Normal 0.2 - 1. 0 [facility] Comment on above: Performed By: #### DAT DIALLORO #### [facility] [address] [place] [address] Dr. Nelson Pollock LACTATE/LACTIC ACIDon 2021 Lactate [Moles/Vol] 1.2 mmol/L Normal 0.7-2.0 [facility] Comment on above: Performed By: #### L ACT #### [facility] [address] [place] [address] Dr. Nelson Pollock LIPASEon 07-26-2021 Lipase [Catalytic activity/Vol] 865.0 U/L Critically high 23.0-300.0 [facility] Comment on above: Performed By: #### L IPA, HSTROPN, CMP ####[facility] [address] [place] [address]Dr. Nelson Pollock PROF 14(COMP METB)on 022 Albumin [Mass/Vol] 4.1 g/dL Normal 3.4-5.0 [facility] Comment on above: Performed By: #### L IPA, HSTROPN, CMP ####[facility] [address] [place] [address]Dr. Nelson Pollock Albumin/Globulin [Mass ratio] 1.2 {ratio} Normal [facility] Comment on above: Performed By: #### L IPA, HSTROPN, CMP ####[facility] [address] [place] [address]Dr. Nelson Pollock ALP [Catalytic activity/Vol] 89 U/L Normal 46-116 [facility] Comment on above: Performed By: #### L IPA HSTROPN, CMP ####[facility] [address] [place] [address]Dr. Nelson Pollock ALT [Catalytic activity/Vol] 43 U/L Normal 16-63 [facility] Comment on above: Performed By: #### L IPA HSTROPN, CMP ####[facility] [address]quwic[address] [place] [address]Dr. Nelson Pollock Anion gap [Moles/Vol] 15.5 mmol/L Normal [facility] Comment on above: Performed By: #### L IPA HSTROPN, CMP ####[facility] [address] [place] [address]Dr. Nelson Pollock AST [Catalytic activity/Vol] 53 U/L Critically high 15-37 [facility] Comment on above: Performed By: #### L IPA HSTROPN, CMP ####[facility] [address]bxmjsov[address] [place] [address]Dr. Nelson Pollock Bilirubin [Mass/Vol] 2.4 mg/dL Critically high 0.2-1.3 [facility] Comment on above: Performed By: #### L IPA HSTROPN, CMP ####[facility] [address]og[address] [place] [address]Dr. Nelson Pollock Calcium [Mass/Vol] 8.5 mg/dL Normal 8.5-10.1 [facility] Comment on above: Performed By: #### L IPA, HSTROPN, CMP ####[facility] [address] [place] [address]Dr. Nelson Pollock Chloride [Moles/Vol] 105 mmol/L Normal 98-107 [facility] Comment on above: Performed By: #### L IPA, HSTROPN, CMP ####[facility] [address]ex[address] [place] [address]Dr. Cloverkusum Pollock CO2 [Moles/Vol] 22.3 mmol/L Normal 22.0-30.0 [facility] Comment on above: Performed By: #### L IPA, HSTROPN, CMP ####[facility] [address] [place] [address]Dr. Nelson Pollock Creatinine [Mass/Vol] 1.06 mg/dL Normal 0.66-1.25 [facility] Comment on above: Performed By: #### L IPA, HSTROPN, CMP ####[facility] [address] [place] [address]Dr. Nelson Pollock EGFR-AF MONTENEGRIN >60 Normal >=60 [facility] Comment on above: Performed By: #### L IPA, HSTROPN, CMP ####[facility] [address] [place], [place] [address]Dr. Nelson Pollock EGFR-NON AF MONTENEGRIN >60 Normal >=60 [facility] Comment on above: Performed By: #### L IPA, HSTROPN, CMP ####[facility] [address] [place], [place] [address]Dr. Nelson Pollock Globulin (S) [Mass/Vol] 3.4 g/dL Normal [facility] Comment on above: Performed By: #### L IPA, HSTROPN, CMP ####[facility] [address]ft[address] [place], [place] [address]Dr. Nelson Pollock Glucose [Mass/Vol] 154 mg/dL Critically high 74-106 [facility] Comment on above: Performed By: #### L IPA, HSTROPN, CMP ####[facility] F[address]bs[address] [place], [place] [address]Dr. Nelson Pollock Potassium [Moles/Vol] 3.8 mmol/L Normal 3.4-5.0 [facility] Comment on above: Performed By: #### L IPA, HSTROPN, CMP ####[facility] [address] [place], [place] [address]Dr. Nelson Pollock Protein [Mass/Vol] 7.5 g/dL Normal 6.1-8.2 [facility] Comment on above: Performed By: #### L IPA, HSTROPN, CMP ####[facility] [address] [place] [address]Dr. Nelson Pollock Sodium [Moles/Vol] 139 mmol/L Normal 137-[address] [facility] Comment on above: Performed By: #### L BRIAN PADILLA, CMP ####[facility] [address] [place], [place] [address]Dr. Nelson Pollock Urea nitrogen [Mass/Vol] 25.0 mg/dL Critically high 7.0-18.0 [facility] Comment on above: Performed By: #### L BRIAN PADILLA, CMP ####[facility] [address] [place], [place] [address]Dr. Nelson Pollock Urea nitrogen/Creatinine [Mass ratio] 23.6 mg/mg Normal [facility] Comment on above: Performed By: #### L BRIAN PADILLA, CMP ####[facility] I[address] [place], [place] [address]Dr. Nelson Pollock PROTIMEon 07-26-2021 INR Coag (PPP) [Relative time] 1.07 {INR} Normal [facility] Comment on above: Performed By: #### P TT, PT ####[facility] [address] [place], [place] [address]Dr. Nelson Pollock INR GUIDELINES SEE BELOW Normal [facility] Comment on above: Result Comment: ARTEM RED INR: 2.0 - 3.0 CONDITIONS NOT LISTED BELOW 2.5 - 3.5 FOR PROSTHETIC HEART VALVE REPLACEMENT 2.5 - 3.5 RECURRENT THROMBOSIS Performed By: #### P TT, PT ####[facility] [address] [place], [place] [address]Dr. Nelson Pollock PT Coag (PPP) [Time] 11.5 s Normal 9.0-11.6 [facility] Comment on above: Performed By: #### P TT, PT ####[facility] [address] [place], [place] [address]Dr. Nelson Pollock PTTon 07-26-2021 aPTT Coag (Bld) [Time] 24.9 s Normal 22.3-36.2 [facility] Comment on above: Performed By: #### P TT, PT ####[facility] [address] [place] [address]Dr. Nelson Pollock TROPONIN, HIGH SENSITIVITYon 07-26-2021 HSTROP 38.6 pg/mL Normal 4.0-42.2 [facility] Comment on above: Result Comment: CUT- OFF POINTS HAVE BEEN ESTABLISHED BASED ON THE FOURTH UNIVERSAL DEFINITIONS OF MYOCARDIAL INFARCTION. THE UPPER REFERENCE LIMIT (URL) OF TROPONIN, DEFINED THE 99TH PERCENTILE OF cTnI DISTRIBUTION IN A REFERENCE POPULATION, HAS BEEN CONFIRMED THE DECISION THRESHOLD FOR DE DIAGNOSIS. Performed By: #### L IPA, HSTROPN, CMP ####[facility] [address] [place] [address]DrErika Pollock URINE MICROSCOPIC ONLYon BACTERIA MODERATE Abnormal NONE SEEN [facility] Comment on above: Performed By: #### Anny ZAMORA, UMICRO #### [facility] [address] [place] [address] Dr. Nelson Pollock Bacteria identified Cx Nom (U) INDICATED Normal [facility] Comment on above: Performed By: #### Anny ZAMORA, UMICRO #### [facility] [address] [place] [address] Dr. Nelson Pollock CAST NONE SEEN Normal NONE SEEN [facility] Comment on above: Performed By: #### E RUDuong, UMICRO #### [facility] [address] [place] [address] Dr. Nelson Pollock Crystals LM Nom (Urine sed) NONE SEEN Normal NONE SEEN [facility] Comment on above: Performed By: #### E RUR, UMICRO #### [facility] [address] [place] [address] Dr. Nelson Pollock Epithelial cells LM Ql (Urine sed) RARE Normal NONE SEEN /RARE [facility] Comment on above: Performed By: #### E RUDuong, UMICRO #### [facility] [address] [place] [address] Dr. Nelson Pollock MUCOUS NONE SEEN Normal NONE SEEN [facility] Comment on above: Performed By: #### E RUDuong, UMICRO #### [facility] [address] [address] [address] Nelson Pollock RBC 2-5 Abnormal 0-2 [facility] Comment on above: Performed By: #### LEISA DIALLO #### [facility] [address] [place], [place] [address] Dr. Nelson Pollock WBC (U) [#/Vol] /uL Abnormal NONE SEEN [facility] Comment on above: Performed By: #### LEISA DIALLO #### [facility] [address] [place], [place] [address] Dr. Nelson Pollock XR CHEST 1 Von [...] by: PERNELL SARMIENTO Date: 2021-07-26 16:40 Normal [facility] Basic Metabolic Panelon 02-2 Anion gap [Moles/Vol] 16 mmol/L Normal 12-20 [facility] Analyst Comment on above: Result Comment: Effe ctive 04/25/2019 reference range changed. Performed By: #### B MP #### [facility] [address] [place], [place] [id number] Calcium [Mass/Vol] 9.5 mg/dL Normal 8.6-10.2 [facility] Comment on above: Performed By: #### B MP #### [facility] [address] [place], [place] [id number] Chloride [Moles/Vol] 106 mmol/L Normal 98-[address] [facility] Specialist Comment on above: Performed By: #### B MP #### [facility] [address] [place], [place] [id number] CO2 [Moles/Vol] 24 mmol/L Normal 20-[address] [facility] Specialist Comment on above: Performed By: #### B MP #### [facility] [address] [place], [place] [id number] Creatinine [Mass/Vol] 0.9 mg/dL Normal 0.7-1.4 [facility] Comment on above: Performed By: #### B MP #### [facility] [address] [place], [place] [id number] eGFRAA 100 mL/min/1.73m2 Normal >60 [facility] Comment on above: Performed By: #### B MP #### [facility] [address] [place], [place] [id number] eGFRNAA 83 mL/min/1.73m2 Normal >60 [facility] Comment on above: Performed By: #### B MP #### [facility] [address] [place], [place] [id number] Glucose [Mass/Vol] 85 mg/dL Normal 65-99 [facility] Comment on above: Result Comment: For FASTING Glucose --- ADA reference ranges: Normal 65-99 mg/dl Prediabetes 100-125 Diabetes >/= 126 Performed By: #### B MP #### [facility] [address] [place], [place] [id number] Potassium [Moles/Vol] 4.1 mmol/L Normal 3.5-5.5 [facility] Comment on above: Performed By: #### B MP #### [facility] [address] [place], [place] [id number] Sodium [Moles/Vol] 142 mmol/L Normal 135-146 [facility] Comment on above: Performed By: #### B MP #### [facility] [address] [place], [place] [id number] Urea nitrogen [Mass/Vol] 16 mg/dL Normal 7-25 [facility] Comment on above: Performed By: #### B MP #### [facility] [address] [place], [place] [id number] CBC AUTO DIFFon 05-06-2021 BASO # 0.1 103/ul Normal 0.0-0.1 [facility] Comment on above: Performed By: #### C BC #### [facility] [address] [place], [place] [address] Dr. Nelson Pollock Basophils/100 WBC (Bld) 0.8 % Normal 0.2-2.0 [facility] Comment on above: Performed By: #### C BC #### [facility] [address] [place] [address] Dr. Nelson Pollock EO # 0.3 103/ul Normal 0.0-0.7 [facility] Comment on above: Performed By: #### C BC #### [facility] [address] [place] [address] Dr. Nelson Pollock Eosinophils/100 WBC (Bld) 2.8 % Normal 0.9-7.0 [facility] Comment on above: Performed By: #### C BC #### [facility] [address] [place] [address] Dr. Nelson Pollock Erythrocyte distribution width (RBC) [Ratio] 13.2 % Normal 11.0-15.0 [facility] Comment on above: Performed By: #### C BC #### [facility] [address] [place] [address] Dr. Nelson Pollock Hematocrit (Bld) [Volume fraction] 45.8 % Normal 42.0-54.0 [facility] Comment on above: Performed By: #### C BC #### [facility] [address] [place] [address] Dr. Nelson Pollock Hemoglobin (Bld) [Mass/Vol] 15.6 g/dL Normal 14.0-18.0 [facility] Comment on above: Performed By: #### C BC #### [facility] [address] [place] [address] Dr. Nelson Pollock IG # 0.04 10e3/ul Critically high 0.00-0.03 [facility] [place] [facility] Comment on above: Performed By: #### C BC #### [facility] [address] [place] [address] Dr. Nelson Pollock IG % 0.4 % Normal 0.0-0.5 [facility] Comment on above: Performed By: #### C BC #### [facility] [address] [place] [address] Dr. Nelson Pollock LYMPH # 3.1 103/ul Normal 1.2-3.8 [facility] Comment on above: Performed By: #### C BC #### [facility] [address] [place] [address] Dr. Nelson Pollock Lymphocytes/100 WBC (Bld) 27.2 % Normal 20.5-60.0 [facility] Comment on above: Performed By: #### C BC #### [facility] [address] [place] [address] Dr. Nelson Pollock MANUAL DIFF REQ NO Normal [facility] Comment on above: Performed By: #### C BC #### [facility] [address] [place] [address] Dr. Nelson Pollock MCH (RBC) [Entitic mass] 29.1 pg Normal 25.9-34.0 [facility] Comment on above: Performed By: #### C BC #### [facility] [address] [place] [address] Dr. Nelson Pollock MCHC (RBC) [Mass/Vol] 34.1 g/dL Normal 29.9-35.2 [facility] Comment on above: Performed By: #### C BC #### [facility] [address] [place] [address] Dr. Nelson Pollock MCV (RBC) [Entitic vol] 85.3 fL Normal 80.0-94.0 [facility] Comment on above: Performed By: #### C BC #### [facility] [address] [place] [address] Dr. Nelson Pollock MONO # 1.0 103/ul Critically high 0.3-0.8 [facility] Comment on above: Performed By: #### C BC #### [facility] [address] [place] [address] Dr. Nelson Pollock Monocytes/100 WBC (Bld) 9.0 % Normal 1.7-12.0 [facility] Comment on above: Performed By: #### C BC #### [facility] [address] [place] [address] Dr. Nelson Pollock NEUT # 6.8 103/ul Critically high 1.4-6.5 [facility] Comment on above: Performed By: #### C BC #### [facility] [address] [place] [address] [address] Nelson Pollock Neutrophils/100 WBC (Bld) 59.8 % Normal 43.0-75.0 [facility] Comment on above: Performed By: #### C BC #### [facility] [address] [place] [address] [address] Nelson Pollock Platelet mean volume (Bld) [Entitic vol] 10.3 fL Normal 9.5-13.5 [facility] Comment on above: Performed By: #### C BC #### [facility] [address] [address] [address] Nelson Pollock PLT 196 103/ul Normal 150-450 [facility] Comment on above: Performed By: #### C BC #### [facility] [address] [place] [address] [address] Nelson Pollock RBC 5.37 106/ul Normal 4.70-6.10 [facility] Comment on above: Performed By: #### C BC #### [facility] [address] [place] [address] [address] Nelson Pollock WBC 11.3 103/ul Critically high 4.0-11.0 [facility] Comment on above: Performed By: #### C BC #### [facility] [address] [address] [address] Nelson Pollock PROF CHEM 8 (BAS METB)on Anion gap [Moles/Vol] 10.8 mmol/L Normal [facility] Comment on above: Performed By: #### B MP, HSTROPN ####[facility] [address] [place] [id number]. Nelson Pollock Calcium [Mass/Vol] 8.8 mg/dL Normal 8.4-10.2 [facility] Comment on above: Performed By: #### B MP, HSTROPN ####[facility] [address] [place] [id number]. Nelson Pollock Chloride [Moles/Vol] 104 mmol/L Normal 98-107 [facility] Comment on above: Performed By: #### B JOVANI, HSTROPN ####[facility] [address] [place] [address]Dr. Nelson Pollock CO2 [Moles/Vol] 26.7 mmol/L Normal 22.0-30.0 [facility] Comment on above: Performed By: #### Viola HAHN, HSTROPN ####[facility] [address] [place] [address]Dr. Nelson Pollock Creatinine [Mass/Vol] 0.95 mg/dL Normal 0.66-1.25 [facility] Comment on above: Performed By: #### Viola HAHN, HSTROPN ####[facility] [address] [place], [place] [address]Dr. Nelson Pollock EGFR-AF MONTENEGRIN >60 Normal >=60 [facility] Comment on above: Performed By: #### Viola HAHN HSTROPN ####[facility] [address] [place], [place] [address]Dr. Cloverkusum Phill EGFR-NON AF MONTENEGRIN >60 Normal >=60 [facility] Comment on above: Performed By: #### Viola HAHN, HSTROPN ####[facility] [address] [place], [place] [address]Dr. Nelson Pollock Glucose [Mass/Vol] 121 mg/dL Critically high 74-106 [facility] Comment on above: Performed By: #### Viola HAHN, HSTROPN ####[facility] [address] [place], [place] [address]Dr. Nelson Pollock Potassium [Moles/Vol] 3.5 mmol/L Normal 3.4-5.0 [facility] Comment on above: Performed By: #### Viola HAHN, HSTROPN ####[facility] [address] [place] [address]Dr. Nelson Pollock Sodium [Moles/Vol] 138 mmol/L Normal 137-[address] [facility] Comment on above: Performed By: #### Viola HAHN, HSTROPN ####[facility] [address] [place] [address]DrErika Pollock Urea nitrogen [Mass/Vol] 12.0 mg/dL Normal 9.0-20.0 [facility] Comment on above: Performed By: #### B JOVANI HSTROPN ####[facility] [address] [place], [place] [address]EoDr. Nelson Pollock Urea nitrogen/Creatinine [Mass ratio] 12.6 mg/mg Normal [facility] Comment on above: Performed By: #### B JOVANI, HSTROPN ####[facility] [address] [place] [id number]. Nelson Pollock TROPONIN, HIGH SENSITIVITYon 05-06-2021 HSTROP 41.0 pg/mL Normal 4.0-42.2 [facility] Comment on above: Result Comment: CUT- OFF POINTS HAVE BEEN ESTABLISHED BASED ON THE FOURTH UNIVERSAL DEFINITIONS OF MYOCARDIAL INFARCTION. THE UPPER REFERENCE LIMIT (URL) OF TROPONIN, DEFINED THE 99TH PERCENTILE OF cTnI DISTRIBUTION IN A REFERENCE POPULATION, HAS BEEN CONFIRMED THE DECISION THRESHOLD FOR DE DIAGNOSIS. Performed By: #### B JOVANI HSTROPN ####[facility] [address] [place] [id number]. Nelson Pollock XR CHEST 1 Von 05-06-2021 [...] CARLTON BRAVO Date: 2021-05-06 20:10 Normal [facility] BNPon 01-06-2021 Natriuretic peptide B (Bld) [Mass/Vol] 268.0 pg/mL Normal <=1,800.0 [facility] Comment on above: Performed By: #### B NEW GRAD RN #### [facility] [address] [address] [address] Nelson Pollock CBC AUTO DIFFon 01-06-2021 BASO # 0.1 103/ul Normal 0.0-0.1 [facility] Comment on above: Performed By: #### C BC #### [facility] [address] [place] [address] [address] Nleson Pollock Basophils/100 WBC (Bld) 0.6 % Normal 0.2-2.0 [facility] Comment on above: Performed By: #### C BC #### [facility] [address] [place] [address] Dr. Nelson Pollock EO # 0.2 103/ul Normal 0.0-0.7 [facility] Comment on above: Performed By: #### C BC #### [facility] [address] [place] [address] Dr. Nelson Pollock Eosinophils/100 WBC (Bld) 1.6 % Normal 0.9-7.0 [facility] Comment on above: Performed By: #### C BC #### [facility] [address] [place] [address] Dr. Nelson Pollock Erythrocyte distribution width (RBC) [Ratio] 13.9 % Normal 11.0-15.0 [facility] Comment on above: Performed By: #### C BC #### [facility] [address] [place] [address] Dr. Nelson Pollock Hematocrit (Bld) [Volume fraction] 46.4 % Normal 42.0-54.0 [facility] Comment on above: Performed By: #### C BC #### [facility] [address] [place] [address] Dr. Nelson Pollock Hemoglobin (Bld) [Mass/Vol] 15.5 g/dL Normal 14.0-18.0 [facility] Comment on above: Performed By: #### C BC #### [facility] [address] [place] [address] Dr. Nelson Pollock IG # 0.04 10e3/ul Critically high 0.00-0.03 [facility] [place] [facility] Comment on above: Performed By: #### C BC #### [facility] [address] [place] [address] Dr. Nelson Pollock IG % 0.4 % Normal 0.0-0.5 [facility] Comment on above: Performed By: #### C BC #### [facility] [address] [place] [address] Dr. Nelson Pollock LYMPH # 2.3 103/ul Normal 1.2-3.8 [facility] Comment on above: Performed By: #### C BC #### [facility] [address] [place] [address] Dr. Nelson Pollock Lymphocytes/100 WBC (Bld) 22.8 % Normal 20.5-60.0 [facility] Comment on above: Performed By: #### C BC #### [facility] [address] [place] [address] Dr. Nelson Pollock MANUAL DIFF REQ NO Normal [facility] Comment on above: Performed By: #### C BC #### [facility] [address] [place] [address] Dr. Nelson Pollock MCH (RBC) [Entitic mass] 28.3 pg Normal 25.9-34.0 [facility] Comment on above: Performed By: #### C BC #### [facility] [address] [place] [address] Dr. Nelson Pollock MCHC (RBC) [Mass/Vol] 33.4 g/dL Normal 29.9-35.2 [facility] Comment on above: Performed By: #### C BC #### [facility] [address] [place] [address] Dr. Nelson Pollock MCV (RBC) [Entitic vol] 84.7 fL Normal 80.0-94.0 [facility] Comment on above: Performed By: #### C BC #### [facility] [address] [place] [address] Dr. Nelson Pollock MONO # 0.8 103/ul Normal 0.3-0.8 [facility] Comment on above: Performed By: #### C BC #### [facility] [address] [place] [address] Dr. Nelson Pollock Monocytes/100 WBC (Bld) 8.0 % Normal 1.7-12.0 [facility] Comment on above: Performed By: #### C BC #### [facility] [address] [place] [address] Dr. Nelson Pollock NEUT # 6.8 103/ul Critically high 1.4-6.5 [facility] Comment on above: Performed By: #### C BC #### [facility] [address] [place] [address] Dr. Nelson Pollock Neutrophils/100 WBC (Bld) 66.6 % Normal 43.0-75.0 [facility] Comment on above: Performed By: #### C BC #### [facility] [address] [place] [address] Dr. Nelson Pollock Platelet mean volume (Bld) [Entitic vol] 10.6 fL Normal 9.5-13.5 [facility] Comment on above: Performed By: #### C BC #### [facility] [address] [place] [address] Dr. Nelson Pollock PLT 201 103/ul Normal 150-450 [facility] Comment on above: Performed By: #### C BC #### [facility] [address] [place] [address] Dr. Nelson Pollock RBC 5.48 106/ul Normal 4.70-6.10 [facility] Comment on above: Performed By: #### C BC #### [facility] [address] [place] [address] Dr. Nelson Pollock WBC 10.2 103/ul Normal 4.0-11.0 [facility] Comment on above: Performed By: #### C BC #### [facility] [address] [place] [address] Dr. Nelson Pollock PROF 14(COMP METB)on 021 Albumin [Mass/Vol] 3.8 g/dL Normal 3.5-5.0 [facility] Comment on above: Performed By: #### C MP, HSTROPN #### [facility] [address] [place] [address] Dr. Nelson Pollock Albumin/Globulin [Mass ratio] 1.2 {ratio} Normal [facility] Comment on above: Performed By: #### C JOVANI, HSTROPN #### [facility] [address] [place] [address] Dr. Nelson Pollock ALP [Catalytic activity/Vol] 73 U/L Normal 38-126 [facility] Comment on above: Performed By: #### C JOVANI, HSTROPN #### [facility] [address] [address] [address] Nelson Pollock ALT [Catalytic activity/Vol] 20 U/L Critically low 21-72 [facility] Comment on above: Performed By: #### C JOVANI, HSTROPN #### [facility] [address] [place] [address] Dr. Nelson Pollock Anion gap [Moles/Vol] 11.0 mmol/L Normal [facility] Comment on above: Performed By: #### C JOVANI, HSTROPN #### [facility] [address] [place] [address] Dr. Nelson Pollock AST [Catalytic activity/Vol] 18 U/L Normal 17-59 [facility] Comment on above: Performed By: #### C JOVANI, HSTROPN #### [facility] [address] [place] [address] Dr. Nelson Pollock Bilirubin [Mass/Vol] 1.7 mg/dL Critically high 0.2-1.3 [facility] Comment on above: Performed By: #### C JOVANI, HSTROPN #### [facility] [address] [place] [address] Dr. Nelson Pollock Calcium [Mass/Vol] 8.9 mg/dL Normal 8.4-10.[address] [facility] Comment on above: Performed By: #### C JOVANI, HSTROPN #### [facility] [address] [place] [address] Dr. Nelson Pollock Chloride [Moles/Vol] 105 mmol/L Normal 98-107 [facility] Comment on above: Performed By: #### C JOVANI, HSTROPN #### [facility] [address] [address] [address] Nelson Pollock CO2 [Moles/Vol] 26.5 mmol/L Normal 22.0-30.0 [facility] Comment on above: Performed By: #### C MP, HSTROPN #### [facility] [address] [address] [address] Nelson Pollock Creatinine [Mass/Vol] 0.82 mg/dL Normal 0.66-1.25 [facility] Comment on above: Performed By: #### C MP, HSTROPN #### [facility] [address] [address] [address] Nelson Pollock EGFR-AF MONTENEGRIN >60 Normal >=60 [facility] Comment on above: Performed By: #### C MP, HSTROPN #### [facility] [address] [place] [address] Dr. Nelson Pollock EGFR-NON AF MONTENEGRIN >60 Normal >=60 [facility] Comment on above: Performed By: #### C MP, HSTROPN #### [facility] [address] [address] [address] Nelson Pollock Globulin (S) [Mass/Vol] 3.3 g/dL Normal [facility] Comment on above: Performed By: #### C MP, HSTROPN #### [facility] [address] [address] [address] Nelson Pollock Glucose [Mass/Vol] 87 mg/dL Normal 74-[address] [facility] Comment on above: Performed By: #### C MP, HSTROPN #### [facility] [address] [address] [address] Nelson Pollock Potassium [Moles/Vol] 3.5 mmol/L Normal 3.4-5.0 [facility] Comment on above: Performed By: #### C MP, HSTROPN #### [facility] [address] [address] [address] Nelson Pollock Protein [Mass/Vol] 7.1 g/dL Normal 6.1-8.[address] [facility] Comment on above: Performed By: #### C MP, HSTROPN #### [facility] [address] [address] [address] Nelson Pollock Sodium [Moles/Vol] 139 mmol/L Normal 137-145 [facility] Comment on above: Performed By: #### C MP, HSTROPN #### [facility] [address] [address] [address] Nelson Pollock Urea nitrogen [Mass/Vol] 13.0 mg/dL Normal 9.0-20.0 [facility] Comment on above: Performed By: #### C MP, HSTROPN #### [facility] [address] [address] [address] Nelson Pollock Urea nitrogen/Creatinine [Mass ratio] 15.9 mg/mg Normal [facility] Comment on above: Performed By: #### C MP, HSTROPN #### [facility] [address] [address] [address] Nelson Pollock TROPONIN, HIGH SENSITIVITYon 01-06-2021 HSTROP 43.4 pg/mL Critically high 4.0-42.2 [facility] Comment on above: Result Comment: CUT- OFF POINTS HAVE BEEN ESTABLISHED BASED ON THE FOURTH UNIVERSAL DEFINITIONS OF MYOCARDIAL INFARCTION. THE UPPER REFERENCE LIMIT (URL) OF TROPONIN, DEFINED THE 99TH PERCENTILE OF cTnI DISTRIBUTION IN A REFERENCE POPULATION, HAS BEEN CONFIRMED THE DECISION THRESHOLD FOR DE DIAGNOSIS. Performed By: #### C MP, HSTROPN #### [facility] [address] [address] [address] Nelson Pollock XR CHEST 1 Von 01-06-2021 XR CHEST 1 V EXAMINATION: XR CHES T 1 V HISTORY: CHEST PAIN, UNSPECIFIED , [...] JASKARAN CARRERA Date: 2021-01-06 11:24 Normal [facility] BASIC METABOLIC PANELon - Calcium [Mass/Vol] 8.5 mg/dL Low 8.6-10.3 [facility] Comment on above: Order Comment: No: D o not add to previous draw Performed By: #### 0 0071, [id number] #### [facility] [address] [place] [address], [place] Chloride [Moles/Vol] 108 mmol/L High 98-107 [facility] Comment on above: Order Comment: No: D o not add to previous draw Performed By: #### 0 0071, [id number] #### [facility] [address] [place] [address], [place] CO2 [Moles/Vol] 27 mmol/L Normal 21-31 [facility] Comment on above: Order Comment: No: D o not add to previous draw Performed By: #### 0 0071, 12076 #### [facility] [address] [place] [address], [place] Creatinine [Mass/Vol] 0.89 mg/dL Normal 0.70-1.30 [facility] Comment on above: Order Comment: No: D o not add to previous draw Performed By: #### 0 0071, [id number] #### [facility] [address] [place] [address], [place] GFR/1.73 sq M predicted among blacks MDRD (S/P/Bld) [Vol rate/Area] mL/min/{1.73_m2} Normal >60 [facility] Comment on above: Order Comment: No: D o not add to previous draw Result Comment: Calc ulation may not be valid for patients over 70 years Performed By: #### 0 0071, 39715 #### [facility] [address] [place] [address], [place] GFR/1.73 sq M predicted among non-blacks MDRD (S/P/Bld) [Vol rate/Area] mL/min/{1.73_m2} Normal >60 [facility] Comment on above: Order Comment: No: D o not add to previous draw Result Comment: Calc ulation may not be valid for patients over 70 years Performed By: #### 0 0071, [id number] #### [facility] [address] [place] [address], [place] Glucose [Mass/Vol] 78 mg/dL Normal 70-100 [facility] Comment on above: Order Comment: No: D o not add to previous draw Performed By: #### 0 0071, [id number] #### [facility] [address] [place] [address], [place] Potassium [Moles/Vol] 4.0 mmol/L Normal 3.5-5.1 [facility] Comment on above: Order Comment: No: D o not add to previous draw Performed By: #### 0 0071, 13813 #### [facility] [address] [place] [address], [place] Sodium [Moles/Vol] 144 mmol/L Normal 136-145 [facility] Comment on above: Order Comment: No: D o not add to previous draw Performed By: #### 0 0071, [id number] #### [facility] [address] [place] [address], [place] Urea nitrogen [Mass/Vol] 21 mg/dL Normal 7-25 [facility] Comment on above: Order Comment: No: D o not add to previous draw Performed By: #### 0 0071, 18024 #### [facility] [address] [place] [address], [place] Calcium [Mass/Vol] 8.3 mg/dL Low 8.6-10.3 [facility] Comment on above: Performed By: #### 0 0071, 19697, 22751 #### [facility] [address] [place] [address], [place] Chloride [Moles/Vol] 108 mmol/L High 98-107 [facility] Comment on above: Performed By: #### 0 0071, 98831, 92169 #### [facility] [address] [place] [address], [place] CO2 [Moles/Vol] 24 mmol/L Normal 21-31 [facility] Comment on above: Performed By: #### 0 0071, 97780, 74436 #### [facility] [address] [place] [address], [facility] Creatinine [Mass/Vol] 0.90 mg/dL Normal 0.70-1.30 [facility] Comment on above: Performed By: #### 0 0071, 39068, 42101 #### [facility] [address] [place] [address], [facility] GFR/1.73 sq M predicted among blacks MDRD (S/P/Bld) [Vol rate/Area] mL/min/{1.73_m2} Normal >60 [facility] Comment on above: Result Comment: Calc ulation may not be valid for patients over 70 years Performed By: #### 0 0071, 81580, 68189 #### [facility] [address] [place] [address], [place] GFR/1.73 sq M predicted among non-blacks MDRD (S/P/Bld) [Vol rate/Area] mL/min/{1.73_m2} Normal >60 [facility] Comment on above: Result Comment: Calc ulation may not be valid for patients over 70 years Performed By: #### 0 0071, 41887, 06392 #### [facility] [address] [place] [address], [place] Glucose [Mass/Vol] 101 mg/dL High 70-100 [facility] Comment on above: Performed By: #### 0 0071, 95010, 88962 #### [facility] [address] [place] [address], [facility] Potassium [Moles/Vol] 3.5 mmol/L Normal 3.5-5.1 [facility] Comment on above: Performed By: #### 0 0071, 41516, 66235 #### [facility] [address] [place] [address], [place] Sodium [Moles/Vol] 141 mmol/L Normal 136-145 [facility] Comment on above: Performed By: #### 0 0071, 24940, 23686 #### [facility] [address] [place] [address], [facility] Urea nitrogen [Mass/Vol] 24 mg/dL Normal 7-25 [facility] Comment on above: Performed By: #### 0 0071, 67844, 35921 #### [facility] [address] [place] [address], [facility] CBC COMPLETE BLOOD COUNTon 0 - Erythrocyte distribution width (RBC) [Ratio] 13.8 % Normal 11.5-15.0 [facility] Comment on above: Order Comment: No: D o not add to previous draw Performed By: #### 5 0608 #### [facility] [address] [place] [address], [place] Hematocrit (Bld) [Volume fraction] 37.7 % Low 39.0-50.0 [facility] Comment on above: Order Comment: No: D o not add to previous draw Performed By: #### 5 0608 #### [facility] [address] [place] [address], [place] Hemoglobin (Bld) [Mass/Vol] 12.9 g/dL Low 13.0-17.0 [facility] Comment on above: Order Comment: No: D o not add to previous draw Performed By: #### 5 0608 #### [facility] [address] [place] [address], [facility] MCH (RBC) [Entitic mass] 29.1 pg Normal 27.0-33.0 [facility] Comment on above: Order Comment: No: D o not add to previous draw Performed By: #### 5 0608 #### [facility] [address] [place] [id number], [facility] MCHC (RBC) [Mass/Vol] 34.2 g/dL Normal 32.0-35.0 [facility] Comment on above: Order Comment: No: D o not add to previous draw Performed By: #### 5 0608 #### [facility] [address] [place] [id number], [facility] MCV (RBC) [Entitic vol] 85.1 fL Normal 82.0-98.0 [facility] Comment on above: Order Comment: No: D o not add to previous draw Performed By: #### 5 0608 #### [facility] [address] [place] [address], [facility] Nucleated RBC/100 WBC (Bld) [Ratio] 0 % Normal 0-0 [facility] Comment on above: Order Comment: No: D o not add to previous draw Performed By: #### 5 0608 #### [facility] [address] [place] [id number], [place] PLAT CNT 198 10*3/uL Normal 150-400 [facility] Comment on above: Order Comment: No: D o not add to previous draw Performed By: #### 5 0608 #### [facility] [address] [place] [id number], [facility] RBC (Bld) [#/Vol] 4.43 10*6/uL Normal 4.20-5.[address] [facility] Comment on above: Order Comment: No: D o not add to previous draw Performed By: #### 5 0608 #### [facility] [address] [place] [id number], [place] WBC (Bld) [#/Vol] 10.40 10*3/uL Normal 4.00-10.60 [facility] Comment on above: Order Comment: No: D o not add to previous draw Performed By: #### 5 0608 #### [facility] [address] [place] [address], [facility] LIPID PROFILEon 07-02-2020 Cholesterol [Mass/Vol] 119 mg/dL Low 120-200 [facility] Comment on above: Result Comment: CHOL ESTEROL REFERENCE RANGE: 20 YEARS AND OLDER CARDIOVASCULAR RISK Less than 200 mg/dl Low Risk 200 to 239 mg/dl Borderline Risk 240 mg/dl and greater High Risk Performed By: #### 0 0071, 52796, 28059 #### [facility] [address] [place] [address], [facility] Cholesterol in HDL [Mass/Vol] 37 mg/dL Normal 23-92 [facility] Comment on above: Result Comment: Slig ht variation in normal range could be due to gender and/or age. HDL CHOLESTEROL REFERENCE RANGE: 20 years and older Cardiovascular Risk > or =60 mg/dL Desirable 40 TO 59 mg/dL Low Risk <40 mg/dL High Risk Performed By: #### 0 0071, 63809, 98859 #### [facility] [address] [place] [address], [place] Cholesterol in LDL [Mass/Vol] 68 mg/dL Normal 0-130 [facility] Comment on above: Result Comment: LDL IS A CALCULATION LDL IS ONLY VALID IF THE TRIG IS LESS THAN 400. Performed By: #### 0 0071, 52476, 82604 #### [facility] [address] [place] [address], [place] Cholesterol.total/C holesterol in HDL [Mass ratio] 3.2 {ratio} Normal 0.0-4.5 [facility] Comment on above: Performed By: #### 0 0071, 37233, 02697 #### [facility] [address] [place] [address], [place] NON-HDL CHOLESTEROL 82 mg/dL Normal [facility] Comment on above: Performed By: #### 0 0071, 95120, 55969 #### [facility] [address] Triglyceride [Mass/Vol] 71 mg/dL Normal 40-149 [facility] Comment on above: Result Comment: TRIG LYCERIDE REFERENCE RANGE: 20 YEARS AND OLDER CARDIOVASCULAR RISK LESS THAN 150 mg/dl LOW RISK 150 TO 199 mg/dl BORDERLINE RISK 200 mg/dl AND GREATER HIGH RISK Performed By: #### 0 0071, 14051, 18053 #### [facility] [address] [place] [address], [facility] VLDL CHOL 14 mg/dL Normal 0-40 [facility] Comment on above: Performed By: #### 0 0071, 23597, 21345 #### [facility] [address] MAGNESIUM BLOODon 07-02-2020 Magnesium [Mass/Vol] 1.5 mg/dL Low 1.9-2.7 [facility] Comment on above: Order Comment: No: D o not add to previous draw Performed By: #### 0 0071, 37424 #### [facility] [address] [place] [address], [facility] Magnesium [Mass/Vol] 1.3 mg/dL Low 1.9-2.7 [facility] Comment on above: Performed By: #### 1 0070, 33908 #### [facility] [address] [facility] [place] [address], [facility] TROPONIN-Ion 07-02-2020 Troponin I.cardiac [Mass/Vol] 0.03 ng/mL Normal 0.00-0.04 [facility] Comment on above: Order Comment: No: D o not add to previous draw Result Comment: REFE RENCE RANGES: 0.00 - 0.04 ng/ml NORMAL 0.05 - 0.50 ng/ml INDETERMINATE > 0.50 ng/ml CONSISTENT WITH AN M.I. Performed By: #### 0 0071, 26618, 30633 #### [facility] [address] Troponin I.cardiac [Mass/Vol] 0.03 ng/mL Normal 0.00-0.04 [facility] Comment on above: Order Comment: No: D o not add to previous draw Result Comment: REFE RENCE RANGES: 0.00 - 0.04 ng/ml NORMAL 0.05 - 0.50 ng/ml INDETERMINATE > 0.50 ng/ml CONSISTENT WITH AN M.I. Performed By: #### 1 0070, 39483 #### [facility] [address] [facility]. [address] UFH HEPARIN ASSAYon 07-03-19 UNFRACTIONATED HEPARIN 0.63 IU/mL Normal 0.30-0.70 [facility] Comment on above: Result Comment: Malone roxaban and Apixaban will interfere with the anti Xa assay used to monitor UFH and LMWH. Performed By: #### 5 0608 #### [facility] [address] UNFRACTIONATED HEPARIN 0.48 IU/mL Normal 0.30-0.70 [facility] Comment on above: Order Comment: No: D o not add to previous draw Result Comment: Danica roxaban and Apixaban will interfere with the anti Xa assay used to monitor UFH and LMWH. Performed By: #### 5 0608 #### [facility] [address] [place] [address], [facility] UNFRACTIONATED HEPARIN 0.34 IU/mL Normal 0.30-0.70 [facility] Comment on above: Result Comment: Danica roxaban and Apixaban will interfere with the anti Xa assay used to monitor UFH and LMWH. Performed By: #### 5 0608 #### [facility] [address] [place] [address], [facility] APTTon 07-01-2020 aPTT Coag (Bld) [Time] 39.8 s High 25.0-35.0 [facility] Comment on above: Order Comment: [...] PURPOSE. Performed By: #### 5 0608 #### [facility] [address] [place] [address], [facility] BASIC METABOLIC PANELon 06-18 Calcium [Mass/Vol] 8.6 mg/dL Normal 8.6-10.3 [facility] Comment on above: Order Comment: No: D o not add to previous draw Performed By: #### 5 0608 #### [facility] [address] [place] [address], [facility] Chloride [Moles/Vol] 104 mmol/L Normal 98-107 [facility] Comment on above: Order Comment: No: D o not add to previous draw Performed By: #### 5 0608 #### [facility] [address] [place] [address], [place] CO2 [Moles/Vol] 27 mmol/L Normal 21-31 [facility] Comment on above: Order Comment: No: D o not add to previous draw Performed By: #### 5 0608 #### [facility] [address] [place] [address], [facility] Creatinine [Mass/Vol] 0.99 mg/dL Normal 0.70-1.30 [facility] Comment on above: Order Comment: No: D o not add to previous draw Performed By: #### 5 0608 #### [facility] [address] [place] [address], [facility] GFR/1.73 sq M predicted among blacks MDRD (S/P/Bld) [Vol rate/Area] mL/min/{1.73_m2} Normal >60 [facility] Comment on above: Order Comment: No: D o not add to previous draw Result Comment: Calc ulation may not be valid for patients over 70 years Performed By: #### 5 0608 #### [facility] [address] [place] [address], [place] GFR/1.73 sq M predicted among non-blacks MDRD (S/P/Bld) [Vol rate/Area] mL/min/{1.73_m2} Normal >60 [facility] Comment on above: Order Comment: No: D o not add to previous draw Result Comment: Calc ulation may not be valid for patients over 70 years Performed By: #### 5 0608 #### [facility] [address] [place] [address], [place] Glucose [Mass/Vol] 126 mg/dL High 70-100 [facility] Comment on above: Order Comment: No: D o not add to previous draw Performed By: #### 5 0608 #### [facility] [address] [place] [address], [place] Potassium [Moles/Vol] 2.9 mmol/L Low 3.5-5.1 [facility] Comment on above: Order Comment: No: D o not add to previous draw Performed By: #### 5 0608 #### [facility] [address] [place] [address], [place] Sodium [Moles/Vol] 141 mmol/L Normal 136-145 [facility] Comment on above: Order Comment: No: D o not add to previous draw Performed By: #### 5 0608 #### [facility] [address] [place] [address], [place] Urea nitrogen [Mass/Vol] 25 mg/dL Normal 7-25 [facility] Comment on above: Order Comment: No: D o not add to previous draw Performed By: #### [id number] #### [facility] [address] [place] [address], [facility] CBC COMPLETE BLOOD COUNTon 0 07-01-2020 Erythrocyte distribution width (RBC) [Ratio] 13.7 % Normal 11.5-15.0 [facility] Comment on above: Order Comment: No: D o not add to previous draw Performed By: #### [id number] #### [facility] [address] [place] [address], [facility] Hematocrit (Bld) [Volume fraction] 39.8 % Normal 39.0-50.0 [facility] Comment on above: Order Comment: No: D o not add to previous draw Performed By: #### [id number] #### [facility] [address] [place] [id number], [facility] Hemoglobin (Bld) [Mass/Vol] 13.7 g/dL Normal 13.0-17.0 [facility] Comment on above: Order Comment: No: D o not add to previous draw Performed By: #### [id number] #### [facility] [address] [place] [address], [facility] MCH (RBC) [Entitic mass] 28.7 pg Normal 27.0-33.0 [facility] Comment on above: Order Comment: No: D o not add to previous draw Performed By: #### [id number] #### [facility] [address] [place] [address], [facility] MCHC (RBC) [Mass/Vol] 34.4 g/dL Normal 32.0-35.0 [facility] Comment on above: Order Comment: No: D o not add to previous draw Performed By: #### [id number] #### [facility] [address] [place] [id number], [facility] MCV (RBC) [Entitic vol] 83.3 fL Normal 82.0-98.0 [facility] Comment on above: Order Comment: No: D o not add to previous draw Performed By: #### [id number] #### [facility] [address] Nucleated RBC/100 WBC (Bld) [Ratio] 0 % Normal 0-0 [facility] Comment on above: Order Comment: No: D o not add to previous draw Performed By: #### [id number] #### [facility] [address] [facility] [place] [address], [facility] PLAT CNT 184 10*3/uL Normal 150-400 [facility] Comment on above: Order Comment: No: D o not add to previous draw Performed By: #### [id number] #### [facility] [address] RBC (Bld) [#/Vol] 4.78 10*6/uL Normal 4.20-5.[address] [facility] Comment on above: Order Comment: No: D o not add to previous draw Performed By: #### [id number] #### [facility] [address] WBC (Bld) [#/Vol] 9.34 10*3/uL Normal 4.00-10.[address] [facility] Comment on above: Order Comment: No: D o not add to previous draw Performed By: #### [id number] #### [facility] [address] PROTHROMBIN TIMEon 1 INR Coag (PPP) [Relative time] 1.12 {INR} Normal 0.91-1.16 [facility] Comment on above: Order Comment: No: D o not add to previous draw Result Comment: [facility] P RECOMMENDED INR FOR WARFARIN THERAPY ------ ------- CONDITION INR PROPHYLAXIS OF VENOUS THROMBOSIS 2-3 (HIGH-RISK SURGERY) TREATMENT OF VENOUS THROMBOSIS 2-3 TREATMENT OF PULMONARY EMBOLISM 2-3 PREVENTION OF SYSTEMIC EMBOLISM: 2-3 ACUTE MYOCARDIAL INFARCTION TISSUE HEART VALVES VALVULAR HEART DISEASE ATRIAL FIBRILLATION RECURRENT SYSTEMIC EMBOLISM MECHANICAL HEART VALVE 2.5-3.5 FROM: ORAL ANTICOAGULANTS. MECHANISM OF ACTION, CLINICAL EFFECTIVENESS, AND OPTIMAL THERAPEUTIC RANGE. CHEST 1995;108:231S-246S. Performed By: #### [id number] #### [facility] [address] PT Coag (PPP) [Time] 14.4 s Normal 12.3-14.8 [facility] Comment on above: Order Comment: No: D o not add to previous draw Result Comment: ALL RESULTS MUST BE INTERPRETED WITH RESPECT TO BLOOD DRAWING ARTIFACT OR DILUTION ERROR OF ANTICOAGULANT AT THE TIME OF SAMPLING. Performed By: #### [id number] #### [facility] [address] [facility]. [address] TROPONIN-Ion 07-01-2020 Troponin I.cardiac [Mass/Vol] 0.02 ng/mL Normal 0.00-0.04 [facility] Comment on above: Order Comment: No: D o not add to previous draw Result Comment: REFE RENCE RANGES: 0.00 - 0.04 ng/ml NORMAL 0.05 - 0.50 ng/ml INDETERMINATE > 0.50 ng/ml CONSISTENT WITH AN M.I. Performed By: #### [id number] #### [facility] [address] [facility]. [address] UFH HEPARIN ASSAYon 07-02-19 21 UNFRACTIONATED HEPARIN <0.10 Critically low 0.30-0.70 [facility] Comment on above: Result Comment: Malone roxaban and Apixaban will interfere with the anti Xa assay used to monitor UFH and LMWH. RESULTS CHECKED AND CALLED. ACCURATELY READ BACK BY Jesus Manuel Velez RN at 0574. Performed By: #### [id number] #### [place] [address] [address] Vital Signs Date Time Vital Sign Value Performing Clinician Hal chavira 05-04-2024 08:25-0500 Body height 162.6 cm Jimmy Alfaro NEW GRAD RN Work Phone: [facility] 05-04-2024 08:25-0500 Body mass index (BMI) [Ratio] 26.33 kg/m2 Jimmy Alfaro NEW GRAD RN Work Phone: [facility] 05-04-2024 08:25-0500 Body weight 69.58 kg Jimmy Alfaro NEW GRAD RN Work Phone: [facility] 05-04-2024 08:25-0500 Diastolic blood pressure 80 mm[Hg] Jimmy Alfaro NEW GRAD RN Work Phone: [facility] 05-04-2024 08:25-0500 Heart rate 88 /min Jimmy Alfaro NEW GRAD RN Work Phone: [facility] 05-04-2024 08:25-0500 Respiratory rate 17 /min Jimmy Alfaro NEW GRAD RN Work Phone: [facility] 05-04-2024 08:25-0500 SaO2% (BldA) [Mass fraction] 97 % Jimmy Alfaro NEW GRAD RN Work Phone: [facility] 05-04-2024 08:25-0500 Systolic blood pressure 128 mm[Hg] Jimmy Alfaro NEW GRAD RN Work Phone: [facility] 01-13-2024 08:33-0400 Body height 162.6 cm Scott Tai MD Work Phone: [facility] 01-13-2024 08:33-0400 Body mass index (BMI) [Ratio] 25.92 kg/m2 Scott Tai MD Work Phone: [facility] 01-13-2024 08:33-0400 Body weight 68.49 kg Scott Tai MD Work Phone: [facility] 01-13-2024 08:33-0400 Diastolic blood pressure 66 mm[Hg] Scott Tai MD Work Phone: [facility] 01-13-2024 08:33-0400 Heart rate 76 /min Scott Tai MD Work Phone: [facility] 01-13-2024 08:33-0400 SaO2% (BldA) [Mass fraction] 96 % Scott Tai MD Work Phone: [facility] 01-13-2024 08:33-0400 Systolic blood pressure 128 mm[Hg] Scott Tai MD Work Phone: [facility] 05-27-2023 15:13-0500 Body height 162.6 cm Scott Tai MD Work Phone: [facility] 05-27-2023 15:13-0500 Body mass index (BMI) [Ratio] 26.61 kg/m2 Scott Tai MD Work Phone: [facility] 05-27-2023 15:13-0500 Body weight 70.31 kg Scott Tai MD Work Phone: [facility] 05-27-2023 15:13-0500 Diastolic blood pressure 84 mm[Hg] Scott Tai MD Work Phone: [facility] 05-27-2023 15:13-0500 Heart rate 72 /min Scott Tai MD Work Phone: [facility] 05-27-2023 15:13-0500 SaO2% (BldA) [Mass fraction] 96 % Scott Tai MD Work Phone: [facility] 05-27-2023 15:13-0500 Systolic blood pressure 138 mm[Hg] Scott Tai MD Work Phone: [facility] Encounters Encounter Date Encounter Type Care Provider Facility Start: 05-04-2024 End: 05-04-2024 Bamboo flowsheet Jimmy Alfaro NP Work Phone: [facility] Start: 05-04-2024 End: 05-04-2024 Bamboo flowsheet Jimmy Alfaro NEW GRAD RN Work Phone: [facility] Start: 05-04-2024 End: 05-04-2024 Assay of hemosiderin, quant Jimmy Alfaro NEW GRAD RN Work Phone: [facility] Work Phone: Start: 05-04-2024 End: 05-04-2024 Patient encounter procedure Jimmy Alfaro NEW GRAD RN Work Phone: [facility] Comment on above: Routine general medi mercy examination at [facility] (Primary Dx); Other chronic pancreatitis (CMS/HCC); Chronic systolic (congestive) heart failure (CMS/HCC); Unspecified systolic (congestive) heart failure (CMS/HCC); Chronic kidney disease, stage 3a (HCC) (CMS/HCC); Carpal tunnel syndrome of right wrist; Atherosclerosis of [place] coronary artery of [place] heart without angina pectoris (CMS/HCC); Atrial enlargement, bilateral; Benign essential hypertension (CMS/HCC); Cardiac arrhythmia, unspecified cardiac arrhythmia type; Cardiovascular stress test abnormal; Chronic systolic CHF (congestive heart failure), NYHA class 2 (CMS/HCC); History of coronary artery bypass graft; Secondary hypertension (CMS/HCC); Ischemic cardiomyopathy (CMS/HCC); Rheumatic mitral regurgitation; Tricuspid valve insufficiency, unspecified etiology; Chronic recurrent pancreatitis (CMS/HCC); Diverticulosis of colon; Dyspepsia; Benign prostatic hyperplasia with urinary frequency; Elevated PSA; Stage 3a chronic kidney disease (HCC) (CMS/HCC); Basal cell carcinoma of back; Mixed hyperlipidemia (CMS/HCC); Intermediate stage nonexudative age-related macular degeneration of both eyes; Sensorineural hearing loss, bilateral; Nuclear sclerosis of both eyes Start: 05-04-2024 End: 05-04-2024 ambulatory JIMMY ALFARO Not Available Start: 03-30-2024 End: 03-30-2024 Clinisync Result Encounter Generic External Data Provider [facility] Unsolicited Start: 03-30-2024 End: 03-30-2024 Clinisync Result Encounter Generic External Data Provider [facility] External [facility] Unsolicited Start: 03-22-2024 End: 03-22-2024 ambulatory [facility] Start: 01-13-2024 End: 01-13-2024 Bamboo flowsheet Scott Tai MD Work Phone: [facility] Start: 01-13-2024 End: 01-13-2024 Bamboo flowsheet Scott Tai MD Work Phone: [facility] Start: 01-13-2024 End: 01-13-2024 Assay of hemosiderin, quant Scott Tai MD Work Phone: [facility] Work Phone: Start: 01-13-2024 End: 01-13-2024 Periodic preventive med est patient 65yrs& older Scott Tai MD Work Phone: [facility] Comment on above: Routine general medi mercy examination at health care facility (Primary Dx); ACP (advance care planning); Atherosclerosis of [place] coronary artery of [place] heart without angina pectoris (CMS/HCC); Atrial enlargement, bilateral; Benign essential hypertension (CMS/HCC); Chronic systolic CHF (congestive heart failure), NYHA class 2 (CMS/HCC); Ischemic cardiomyopathy (CMS/HCC); Chronic recurrent pancreatitis (CMS/HCC); Diverticulosis of colon; Pancreatic insufficiency (CMS/HCC); Benign prostatic hyperplasia with urinary frequency; Stage 3a chronic kidney disease (HCC) (CMS/HCC); Mixed hyperlipidemia (CMS/HCC); Intermediate stage nonexudative age-related macular degeneration of both eyes Start: 01-13-2024 End: 01-13-2024 ambulatory SCOTT TAI Not Available Start: 10-05-2023 End: 10-05-2023 [facility] Start: 09-16-2023 End: 09-16-2023 ambulatory SCOTT [...] failure), NYHA class 2 (CMS/HCC); Atherosclerosis of [place] coronary artery of [place] heart without angina pectoris (CMS/HCC); Right cervical radiculopathy Start: 05-27-2023 End: 05-27-2023 ambulatory SCOTT TAI Not Available Start: 05-27-2023 SessionMheet Scott salguero MD Work Phone: [facility] Start: 05-27-2023 BamBarcodingo flowsheet Scott salguero MD Work Phone: [facility] Start: 04-17-2023 End: 04-17-2023 [facility] Start: 04-22-2022 End: 04-22-2022 ambulatory Driss Smith Other [employer] Other Start: 04-22-2022 Telephone encounter Driss álvarez [facility] Start: 12-19-2021 End: 12-19-2021 ambulatory Driss Smith Other [employer] Other Start: 12-19-2021 Telephone encounter Driss álvarez [facility] Start: 07-26-2021 End: 07-26-[address] PRAVEEN MEADOWS Facility:[facility] Start: 05-06-2021 End: 05-06-[address] SCOTT TAI Facility:[facility] Start: 01-06-2021 End: 01-06-[address] JASKARAN CARRERA Facility:[facility] Start: 07-01-2020 End: 07-02-2020 Patient encounter procedure VIDAL ODOM Facility:[facility] Start: 06-28-2018 End: 06-29-2018 Patient encounter procedure DEFAULT PHYSICIAN Facility:[facility] Procedures Date Procedure Procedure Detail Performing Clinician Start: 03-30-2024 ALL BASIC METABOLIC PANEL Generic Power Shovel Mechanic al Data Provider Start: 10-23-2022 History of coronary artery bypass grafting History of coronary artery bypass graft Scott Tai MD Work Phone: Start: 07-02-2020 MEASUREMENT OF CARDIAC TOTAL ACTIVITY, EXTERNAL APPROACH BINDU ZAIDI Start: 07-02-2020 ULTRASONOGRAPHY OF RIGHT AND LEFT HEART, TRANSESOPHAGEAL BINDU ZAIDI History of coronary artery bypass grafting History of coronary artery bypass graft Jimmy Alfaro NEW GRAD RN Work Phone: Plan of Treatment Date Care Activity Detail Author Start: 05-04-2025 Medicare Annual Wellness (AWV) Medicare Annual Wellness (AWV) [facility] Start: 05-04-2025 End: 05-04-2025 Patient encounter procedure 05/04/2025 8:30 AM EST Office Visit [facility] [address] [facility] [address] [place] [id number] Scott Tai MD [address] [facility] [address] [place], [place] [id number] [facility] Start: 01-12-2025 Medicare Annual Wellness (AWV) Medicare Annual Wellness (AWV) [facility] Start: 05-04-2024 End: 05-04-2025 Prostate specific Ag [Mass/volume] in Serum or Plasma PSA Lab Routine Elevated PSA Expected: 05/04/2024 (Approximate), Expires: 05/04/2025 [facility] Work Phone: Comment on above: Expected: 05/04/2024 (Approximate), Expires: 05/04/2025 Start: 05-04-2024 End: 05-04-2024 Patient encounter procedure [facility] Comment on above: Arrived Start: 01-13-2024 End: 01-12-2025 Comprehensive metabolic 2000 panel - Serum or Plasma Comprehensive metabolic panel Lab Routine Atherosclerosis of [place] coronary artery of [place] heart without angina pectoris (CMS/HCC) Stage 3a chronic kidney disease (HCC) (CMS/HCC) Expected: 01/13/2024 (Approximate), Expires: 01/12/2025 [facility] Comment on above: Expected: 01/13/2024 (Approximate), Expires: 01/12/2025 Start: 01-13-2024 End: 01-12-2025 Lipid 1996 panel - Serum or Plasma Lipid panel Lab Routine Atherosclerosis of [place] coronary artery of [place] heart without angina pectoris (CMS/HCC) Mixed hyperlipidemia (CMS/HCC) Expected: 01/13/2024 (Approximate), Expires: 01/12/2025 [facility] Comment on above: Expected: 01/13/2024 (Approximate), Expires: 01/12/2025 Start: 01-13-2024 End: 01-13-2024 Patient encounter procedure 01/13/2024 8:30 AM EDT Office Visit [facility] [address] [place] [address] [place] [address] Scott Tai MD [address] [place] [address] [place] [address] Arrived [facility] Comment on above: Arrived Start: 01-09-2024 Medicare Annual Wellness (AWV) Medicare Annual Wellness (AWV) [facility] Start: 09-16-2023 End: 09-16-2023 Patient encounter procedure 09/16/2023 8:30 AM EDT Office Visit [facility] [address] [place] [address] [place] [address] Scott Tai MD [address] [place] [address] [place] [address] [facility] Start: 07-03-2023 End: 07-03-2023 Patient encounter procedure 07/03/2023 9:30 AM EDT Office Visit [facility] [address] [place] [address] [place] [address] Scott Tai MD [address] [place] [place] [address] [facility] Start: 05-27-2023 End: 05-27-2023 Patient encounter procedure 05/27/2023 3:30 PM EST Office Visit [facility] [address] [place] [address] [place] [address] Scott Tai MD [address] [place] [place] [address] Arrived [facility] Comment on above: Arrived CBC W Auto Different ial panel - Blood CBC and differential Lab Routine Atherosclerosis of [place] coronary artery of [place] heart without angina pectoris (CMS/HCC) Stage 3a chronic kidney disease (HCC) (CMS/HCC) Ordered: 01/13/2024 [facility] Work Phone: Comment on above: Ordered: 01/13/2024 Immunizations Immunization Date Immunization Notes Care Provider Fa cility 05-21-2018 zoster vaccine recombinant Scott Tai MD Work Phone: [facility] 10-13-2017 tetanus toxoid, redu zuleika diphtheria toxoid, and acellular pertussis vaccine, adsorbed Scott Tai MD Work Phone: [facility] 10-28-2012 zoster vaccine, live Scott Tai MD Work Phone: [facility] Payers Date Payer Category Payer Medicare [facility] ADV[facility] MED[facility] [id number] 2017-Present [address] [place] [address] [id number] 2017 Medicare (Managed Care) [facility] ADVANTAGE [id number] 1959 Unknown [id number] 1942 Unknown [id number]. 2.647 1942 Unknown [id number] [id number]. 2.647 1942 Unknown [id number] [id number]. 2.593 1942 Unknown [id number] [id number]. 2.593 1942 Unknown [id number] [id number]. 2.593 1942 Unknown [id number] [id number]. 2.1259 1942 Unknown [id number] [id number]. 2.1259 1942 Unknown [id number] [id number]. 2.1259 1942 Unknown [id number] [id number]. 2.1259 1942 Unknown [id number] [id number]. 2.1259 1942 Unknown [id number]. 2.1259 Unknown Social History Date Type Detail Facility Start: 12-02-2022 End: 05-04-2024 Sex Assigned At [place] [employer] Other Start: 10-23-2022 Tobacco smoking status [facility] Never smoked tobacco [facility] Start: 10-23-2022 Tobacco use and exposure Smokeless tobacco non-user [facility] Start: 03-16-2023 End: 05-04-2024 Alcohol intake Ex-drinker (finding) [facility] Start: 12-02-2022 End: 05-04-2024 History of Social function [facility] Within [...] - these days [OSQ] Not at all [facility] (I/We) worried wheth er (my/our) food would run out before (I/we) got money to buy more. Never true [facility] Start: 11-25-2022 Alcohol Comment Caffeine intake : 1-2 cups per day coffee [facility] Start: 1940 Sex Assigned At Not on file [facility] Clinical Notes 04-22-2022 to 05-04-2024 Jimmy Alfaro NP - 05/04/2024 8:30 AM Joy Tai MD - 01/13/2024 8:30 AM Baldemar Tai MD - 05/27/2023 3:30 PM EST Note Date & Type Note Facility 05-04-2024 History of Present illness Narrative Images from the original note were not included. Subjective Patient ID: Skip Cabello is a 83 y.o. male who presents for Medicare wellness. Skip presents today for a Medicare Wellness. Current Outpatient Medications on File Prior to Visit Medication Sig Dispense Refill aspirin 81 MG EC tablet take 1 tablet (81MG) by oral route every day Oral atorvastatin (Lipitor) 40 MG tablet TAKE 1 TABLET BY MOUTH EVERYDAY AT BEDTIME 100 tablet 3 carvedilol (Coreg) 6.25 MG tablet TAKE 1 TABLET BY MOUTH IN THE MORNING AND IN THE EVENING WITH MEALS 180 tablet 1 clopidogrel (Plavix) 75 MG tablet TAKE 1 TABLET BY MOUTH EVERY DAY FOR 100 DAYS 100 tablet 3 isosorbide mononitrate ER (Imdur) 30 MG 24 hr tablet TAKE 1 TABLET BY MOUTH EVERY DAY 90 tablet 3 lisinopril 20 MG tablet Take 20 mg by mouth Daily Magnesium 400 MG capsule Take 1 capsule by mouth 1 (one) time each day. Multiple Vitamins-Minerals (PRESERVISION AREDS 2 PO) Take 1 tablet by mouth in the morning. nitroglycerin (Nitrostat) 0.4 MG SL tablet tadalafil (Cialis) 20 MG tablet Take 1 tablet (20 mg) by mouth Daily as needed for erectile dysfunction 10 tablet 0 No current facility-administered medications on file prior to visit. I have reviewed and reconciled the history and medication list with the patient today. No Known Allergies Social History Tobacco Use Smoking status: Never Smokeless tobacco: Never Vaping Use Vaping status: Never Used Substance Use Topics Alcohol use: Not Currently Comment: Caffeine intake : 1-2 cups per day coffee Drug use: Never Family History Problem Relation Name Age of Onset Heart disease Father Hypertension Father Hypertension Sibling Heart disease Sibling No Known Problems Son No Known Problems Daughter Melanoma Neg Hx Past Medical History: Diagnosis Date Basal cell carcinoma Brachial neuralgia CAD (coronary artery disease) ([facility]) Chest pain 11/20/18-11/21/18, 03/20/17 Chest pain 07/01/2020 Electrolyte Imbalance, NSTEMI Coronary atherosclerosis of [place] coronary artery ([facility]) Diverticulosis 12/2019 Heart disease History of being hospitalized 05/22/2023 Hypotension, SRINIVAS History of cholecystectomy 2003 History of echocardiogram 2020 EF 40% Hyperlipemia ([facility]) Hypertension ([facility]) 06/2014 Pancreatitis Past Surgical History: Procedure Laterality Date ANGIOPLASTY APPENDECTOMY 1960 CHOLECYSTECTOMY COLONOSCOPY 2019 CORONARY ARTERY BYPASS GRAFT 2009 [facility] schwann EGD 2019 HERNIA REPAIR 2003 Visit Vitals Smoking Status Never Review of Systems Constitutional: Negative. HENT: Negative. Eyes: Negative. Respiratory: Negative. Cardiovascular: Negative. Gastrointestinal: Negative. Genitourinary: Negative. Musculoskeletal: Negative. Skin: Negative. Neurological: Negative. Psychiatric/Behavioral: Negative. Objective Physical Exam Vitals reviewed. Constitutional: Appearance: Normal appearance. HENT: Head: Normocephalic. Right Ear: Tympanic membrane normal. Left Ear: Tympanic membrane normal. Nose: Nose normal. Mouth/Throat: Mouth: Mucous membranes are moist. Pharynx: Oropharynx is clear. Eyes: Conjunctiva/sclera: Conjunctivae normal. Cardiovascular: Rate and Rhythm: Normal rate and regular rhythm. Pulmonary: Effort: Pulmonary effort is normal. Breath sounds: Normal breath sounds. Abdominal: General: Bowel sounds are normal. Palpations: Abdomen is soft. Musculoskeletal: General: Normal range of motion. Cervical back: Neck supple. Skin: General: Skin is warm and dry. Neurological: General: No focal deficit present. Mental Status: He is alert and oriented to person, place, and time. Psychiatric: Mood and Affect: Mood normal. Behavior: Behavior normal. Thought Content: Thought content normal. Judgment: Judgment normal. Assessment/Plan Diagnoses and all orders for this visit: Routine general medical examination at health care facility Wellness form reviewed in detail with the patient. Encouraged patient to stay up to date on immunizations and preventative testing. Encouraged healthy diet, stay active. Will continue with yearly wellness exams. Other chronic pancreatitis (CMS/HCC)\ This is a chronic medical condition that is stable since last assessment. No changes in treatment are suggested at this time. Chronic systolic (congestive) heart failure (CMS/HCC) This is a chronic medical condition that is stable since last assessment. No changes in treatment are suggested at this time. Unspecified systolic (congestive) heart failure (CMS/HCC) This is a chronic medical condition that is stable since last assessment. No changes in treatment are suggested at this time. Chronic kidney disease, stage 3a (HCC) (CMS/HCC) This is a chronic medical condition that is stable since last assessment. No changes in treatment are suggested at this time. Carpal tunnel syndrome of right wrist Pt has no further concerns of pain in wrist at this time. Atherosclerosis of [place] coronary artery of [place] heart without angina pectoris (CMS/HCC) This is a chronic medical condition that is stable since last assessment. No changes in treatment are suggested at this time. Atrial enlargement, bilateral This is a chronic medical condition that is stable since last assessment. No changes in treatment are suggested at this time. Benign essential hypertension (CMS/HCC) Patient's blood pressure is currently well controlled. Continue with current medications and I will continue to monitor. Goal BP remains less than 130/80. Cardiac arrhythmia, unspecified cardiac arrhythmia type This is a chronic medical condition that is stable since last assessment. No changes in treatment are suggested at this time. Cardiovascular stress test abnormal Pt had CABG 12 years ago and has not had any further issues. Chronic systolic CHF (congestive heart failure), NYHA class 2 (CMS/HCC) This is a chronic medical condition that is stable since last assessment. No changes in treatment are suggested at this time. History of coronary artery bypass graft This is a chronic medical condition that is stable since last assessment. No changes in treatment are suggested at this time. Secondary hypertension (CMS/HCC) Patient's blood pressure is currently well controlled. Continue with current medications and I will continue to monitor. Goal BP remains less than 130/80. Ischemic cardiomyopathy (CMS/HCC) Patient's blood pressure is currently well controlled. Continue with current medications and I will continue to monitor. Goal BP remains less than 130/80. Rheumatic mitral regurgitation This is a chronic medical condition that is stable since last assessment. No changes in treatment are suggested at this time. Tricuspid valve insufficiency, unspecified etiology This is a chronic medical condition that is stable since last assessment. No changes in treatment are suggested at this time. Chronic recurrent pancreatitis (CMS/HCC) This is a chronic medical condition that is stable since last assessment. No changes in treatment are suggested at this time. Diverticulosis of colon This is a chronic medical condition that is stable since last assessment. No changes in treatment are suggested at this time. Dyspepsia This is a chronic medical condition that is stable since last assessment. No changes in treatment are suggested at this time. Benign prostatic hyperplasia with urinary frequency This is a chronic medical condition that is stable since last assessment. No changes in treatment are suggested at this time. Elevated PSA - PSA; Future Await lab Stage 3a chronic kidney disease (HCC) (CMS/HCC) Avoid NSAIDs such as Ibuprofen, Motrin, Naprosyn. Increase fluids. Basal cell carcinoma of back This is resolved as pt had area removed. Mixed hyperlipidemia (CMS/HCC) This is a chronic medical condition that is stable since last assessment. No changes in treatment are suggested at this time. Intermediate stage nonexudative age-related macular degeneration of both eyes This is a chronic medical condition that is stable since last assessment. No changes in treatment are suggested at this time. Sensorineural hearing loss, bilateral This is a chronic medical condition that is stable since last assessment. No changes in treatment are suggested at this time. Nuclear sclerosis of both eyes This is a chronic medical condition that is stable since last assessment. No changes in treatment are suggested at this time. No follow-ups on file. documented in this encounter [facility] 03-22-2024 Note Cardiology Clinic No te Subjective Davina [...] Patent 3 out (more content not included)... [facility] 01-13-2024 History of Present illness Narrative Images from the original note were not included. Subjective : Chief Complaint: Sikp Cabello is an 83 y.o. male here for an annual wellness visit. I have reviewed and reconciled the history and medication list with the patient today. Current Outpatient Medications Medication Sig Dispense Refill aspirin 81 MG EC tablet take 1 tablet (81MG) by oral route every day Oral atorvastatin (Lipitor) 40 MG tablet TAKE 1 TABLET BY MOUTH EVERYDAY AT BEDTIME 90 tablet 3 carvedilol (Coreg) 6.25 MG tablet TAKE 1 TABLET BY MOUTH IN THE MORNING AND IN THE EVENING WITH MEALS 180 tablet 1 clopidogrel (Plavix) 75 MG tablet TAKE 1 TABLET BY MOUTH EVERY DAY FOR 100 DAYS 100 tablet 3 isosorbide mononitrate ER (Imdur) 30 MG 24 hr tablet TAKE 1 TABLET BY MOUTH EVERY DAY 90 tablet 3 lisinopril 20 MG tablet Take 20 mg by mouth Daily Magnesium 400 MG capsule Take 1 capsule by mouth 1 (one) time each day. Multiple Vitamins-Minerals (PRESERVISION AREDS 2 PO) Take 1 tablet by mouth in the morning. nitroglycerin (Nitrostat) 0.4 MG SL tablet No current facility-administered medications for this visit. Review of Systems List of current healthcare providers: Patient Care Team: Scott Tai MD as PCP - General (Internal Medicine) Scott Tai MD as PCP - Lashon PASCUAL Medicare Annual Visit Over the past 2 weeks, how often have you been bothered by any of the following problems? Little interest or pleasure in doing things: Not at all Feeling down, depressed, or hopeless: Not at all Patient Health Questionnaire-2 Score: 0 Ching Fall Risk History of Falling, Immediate or Within 3 Months: No Secondary Diagnosis: No Ambulatory Aid: Walks without aid/bedrest/nurse assist Health Risk Assessment Form Do you need help eating, bathing, using the toilet, dressing, or getting around your home?: No Can you prepare your own meals?: Yes Can you do your own housework without help?: Yes Can you shop for groceries or clothes without help?: Yes Do you exercise for about 20 minutes 3 or more days a week?: Yes How confident are you that you can control and manage most of your health problems?: Very confident Can you mange your money, credit cards and accounts, pay bills and taxes?: No Cognitive Screening Three Word Registration: Apple, Watch, Concetta Clock Drawing: Normal Clock - 2 Three Word Recall: 2/3 words correct - 2 Total Score (0-5 Points): 4 Pain Assessment Pain Score: 6 Advance Care Planning Do you have a living will?: Yes Do you have a medical power of title attorney?: Yes Who is your medical power of title attorney?: daughter Objective : BP 128/66 Pulse 76 Ht 5' 4 Wt 151 lb SpO2 96% BMI 25.92 kg/m No results found. Physical Exam Constitutional: General: He is not [...] Thought content normal. Judgment: Judgment normal. Assessment/Plan : The following health maintenance schedule was reviewed with the patient and provided in printed form in the after visit summary: Health Maintenance Topic Date Due Medicare Annual Wellness (AWV) 01/09/2024 Influenza Vaccine Discontinued Pneumococcal Vaccine: 65+ Years Discontinued Advance Care Planning Assessment/Plan Diagnoses and all orders for this visit: Routine general medical examination at health care facility ACP (advance care planning) Atherosclerosis of [place] coronary artery of [place] heart without angina pectoris (CMS/HCC) - CBC and differential - Comprehensive metabolic panel; Future - Lipid panel; Future Atrial enlargement, bilateral Benign essential hypertension (CMS/HCC) Chronic systolic CHF (congestive heart failure), NYHA class 2 (CMS/HCC) Ischemic cardiomyopathy (CMS/HCC) Chronic recurrent pancreatitis (CMS/HCC) Diverticulosis of colon Pancreatic insufficiency (CMS/HCC) Benign prostatic hyperplasia with urinary frequency Stage 3a chronic kidney disease (HCC) (CMS/HCC) - CBC and differential - Comprehensive metabolic panel; Future Mixed hyperlipidemia (CMS/HCC) - Lipid panel; Future Intermediate stage nonexudative age-related macular degeneration of both eyes Orders Placed This Encounter Procedures CBC and differential Order Specific Question: Print requisition? Answer: No Comprehensive metabolic panel Standing Status: Future Number of Occurrences: 1 Standing Expiration Date: 01/12/2025 Order Specific Question: Print requisition? Answer: No Lipid panel Standing Status: Future Number of Occurrences: 1 Standing Expiration Date: 01/12/2025 Follow up in about 4 months (around 05/23/2024) for Test/Lab Review, Routine F/U. Electronically signed by Scott Tai MD on January 13, 2024 documented in this encounter [facility] 10-05-2023 Note Cardiology Clinic No te Subjective Davina Cabello is a 83 y.o. year old male patient with past medical history of CAD status post CABG, heart failure reduced ejection fraction, hypertension, and hyperlipidemia seen in follow-up. Patient here for 6 mo follow up CAD, HFrEF, hypertension, and hyperlipidemia. He was admitted to [facility] in May 2023 for acute hypotension. Lisinopril [...] size and sys (more content not included)... [facility] 05-27-2023 History of Present illness Narrative HPI Follow-up Additional comments: Went to [facility] ER 05/22/23 was kept for observation dx: hypotension coreg and lisinopril doses decreased and advised to stop spironolactone Last edited by Viviana Martini LPN on 05/27/2023 3:27 PM. Subjective Patient ID: Skip Cabello is a 82 y.o. male who presents for Follow-up (Went to [facility] ER 05/22/23 was kept for observation dx: hypotension coreg and lisinopril doses decreased and advised to stop spironolactone) and Arm Pain. Flowsheet Row Patient Outreach from 05/26/2023 in [facility] with Shu ThursdayDELICIA Discharge Information ED or Hospital Discharge? ED Patient has been contacted within 1 week of being seen in the ED Yes Discharge Date 05/22/23 Discharge Hospital [facility] Discharged To: Home Setting Engagement Call Start Time 0814 Medications Discharge medications reviewed and reconciled from [...] nitroglycerin (Nitrostat) 0.4 MG SL tablet pancrelipase, Fqa-Yahk-Lmne, (Creon) 32445-33554 units capsule Take by mouth 3 (three) [...] 07/01/2020 Electrolyte Imbalance, NSTEMI Coronary atherosclerosis of [place] coronary artery (CMS/HCC) Diverticulosis 12/2019 Heart disease History of cholecystectomy 2003 History of echocardiogram 2020 EF 40% Hyperlipemia (CMS/HCC) Hypertension (CMS/HCC) 06/2014 Pancreatitis Past Surgical History: Procedure Laterality Date ANGIOPLASTY APPENDECTOMY 1960 CHOLECYSTECTOMY COLONOSCOPY 2019 CORONARY ARTERY BYPASS GRAFT 2009 [facility] EGD 2019 HERNIA REPAIR 2003 [...] failure), NYHA class 2 (CMS/HCC) Atherosclerosis of [place] coronary artery of [place] heart without angina pectoris (CMS/HCC) Right cervical radiculopathy - methylPREDNISolone (Medrol Dospak) 4 MG tablets; Follow schedule on package instructions Follow up in about 4 weeks (around 06/24/2023) for Recheck, F/U med changes. documented in this encounter [facility] 04-17-2023 Note Patient here for 1 m o follow up echo and labs. Still denies chest pain, SOB, and palpitations. Was lightheaded this morning. Says his BP is still up and down . Review of Systems HENT: Positive for hearing loss. Neurological: Positive for light-headedness. All other systems reviewed and are negative. [facility] 04-17-2023 Note Cardiology Clinic No [...] regurg Coronary a (more content not included)... [facility] 04-22-2022 Evaluation note Encounter Date Diagnosis Assessment Notes Apr, Liver lesion, right lobe (ICD-10 - K76.9) [employer] Other Evaluation noteNo InformationNort [employer] Other Evaluation note* Diagnosis Benign essential hypertension (CMS/HCC)- Primary Essential hypertension, benign Chronic systolic CHF (congestive heart failure), NYHA class 2 (CMS/HCC) Atherosclerosis of [place] coronary artery of [place] heart without angina pectoris (CMS/HCC) Right cervical radiculopathy documented [facility] Diagnosis Routine general medical examination at health care facility- Primary Routine general medical examination at a health care facility ACP (advance care planning) Other specified counseling Atherosclerosis of [place] coronary artery of [place] heart without angina pectoris (CMS/HCC) Atrial enlargement, bilateral Benign essential hypertension (CMS/HCC) Essential hypertension, benign Chronic systolic CHF (congestive heart failure), NYHA class 2 (CMS/HCC) Ischemic cardiomyopathy (CMS/HCC) Other specified forms of chronic ischemic heart disease Chronic recurrent pancreatitis (CMS/HCC) Diverticulosis of colon Diverticulosis of colon (without mention of hemorrhage) Pancreatic insufficiency (CMS/HCC) Other specified disease of pancreas Benign prostatic hyperplasia with urinary frequency Stage 3a chronic kidney disease (HCC) (CMS/HCC) Mixed hyperlipidemia (CMS/HCC) Mixed hyperlipidemia Intermediate stage nonexudative age-related macular degeneration of both eyes documented [facility] encounter [facility] Diagnosis Routine general medical examination at health care facility- Primary Routine general medical examination at a health care facility Other chronic pancreatitis (CMS/HCC) Chronic systolic (congestive) heart failure (CMS/HCC) Unspecified systolic (congestive) heart failure (CMS/HCC) Chronic kidney disease, stage 3a (HCC) (CMS/HCC) Carpal tunnel syndrome of right wrist Atherosclerosis of [place] coronary artery of [place] heart without angina pectoris (CMS/HCC) Atrial enlargement, bilateral Benign essential hypertension (CMS/HCC) Essential hypertension, benign Cardiac arrhythmia, unspecified cardiac arrhythmia type Cardiovascular stress test abnormal Chronic systolic CHF (congestive heart failure), NYHA class 2 (CMS/HCC) History of coronary artery bypass graft Postsurgical aortocoronary bypass status Secondary hypertension (CMS/HCC) Other secondary hypertension, unspecified Ischemic cardiomyopathy (CMS/HCC) Other specified forms of chronic ischemic heart disease Rheumatic mitral regurgitation Rheumatic mitral insufficiency Tricuspid valve insufficiency, unspecified etiology Chronic recurrent pancreatitis (CMS/HCC) Diverticulosis of colon Diverticulosis of colon (without mention of hemorrhage) Dyspepsia Dyspepsia and other specified disorders of function of stomach Benign prostatic hyperplasia with urinary frequency Elevated PSA Elevated prostate specific antigen (PSA) Stage 3a chronic kidney disease (HCC) (CMS/HCC) Basal cell carcinoma of back Mixed hyperlipidemia (CMS/HCC) Mixed hyperlipidemia Intermediate stage nonexudative age-related macular degeneration of both eyes Sensorineural hearing loss, bilateral Nuclear sclerosis of both eyes documented in this encounter [facility] N[facility] - Reported* Type Description Date Medical History GERD Medical History HTN Medical History hyperlipidemia Medical History CHF Surgical History tonsillectomy Surgical History cholecystectomy Surgical History triple bypass Surgical History appendectomy Hospitalization History see surgical history [employer] Other Summary Purpose Family History No Family [...] Records Found Hospital Course Note MR#: [id number] [facility] Pt. Name: Davina Cabello Admitted: 07/01/2020 Discharged: [...] and content) DATE CREATED AUTHOR 06/29/2018 [facility] DATE CREATED AUTHOR AUTHOR'S ORGANIZ ATION 07/13/2020 [facility] DATE CREATED AUTHOR AUTHOR'S ORGANIZ ATION 06/17/2021 [facility]ical Specialist DATE CREATED AUTHOR AUTHOR'S ORGANIZ ATION 07/31/2021 [facility] DATE CREATED AUTHOR AUTHOR'S ORGANIZ ATION 09/23/2021 [facility] DATE CREATED AUTHOR AUTHOR'S ORGANIZ ATION 04/03/2024 [facility] DATE CREATED AUTHOR AUTHOR'S ORGANIZ ATION 05/07/2024 [facility] dical Specialists EPIC REASON FOR VISIT (unrecogniz ed section and content) Reason Comments Follow-up Went to [facility] ER 4 was kept for observation dx: hypotension coreg and lisinopril doses decreased and advised to stop spironolactone Arm Pain Reason Comments Medicare Annual Wellness Visit Subsequen t Care Teams (unrecognized sec tion and content) Nurse Quality Relationship Specialty Start Date End Date Scott Tai MD [address] [place] [address] PCP - Lashon PASCUAL 04/20/21 Scott Tai MD [address] [place] [address] PCP - General Internal Medicine 10/22/22 Nurse Quality Relationship Specialty Start Date End Date Scott Tai MD [address] [place] [address] PCP - Lashon PASCUAL 04/20/21 Scott Tai MD [address] [place] [address] PCP - General Internal Medicine 10/22/22 Nurse Quality Relationship Specialty Start Date End Date Scott Tai MD [address] [place] [address] PCP - Lashon PASCUAL 04/20/21 Scott Tai MD [address] [place] [address] PCP - General Internal Medicine 10/22/22 Nurse Quality Relationship Specialty Start Date End Date Scott Tai MD [address] [place] [address] PCP - Lashon PASCUAL 04/20/21 Scott Tai MD [address] [place] [address] PCP - General Internal Medicine 10/22/22 Nurse Quality Relationship Specialty Start Date End Date Scott Tai MD [address] [facility] [address] [place] [address] PCP - Lashon PASCUAL 04/20/21 Scott Tai MD [address] [facility] [address] [place] [address] PCP - General Internal Medicine 10/22/22 Nurse Quality Relationship Specialty Start Date End Date Scott Tai MD [address] [facility] [address] [place] [address] PCP - Lashon PASCUAL 04/20/21 Scott Tai MD [address] [facility] [address] [place] [address] PCP - General Internal Medicine 10/22/22 FOR [...] BE BASED ON THE PRIMARY CLINICAL RECORDS. [employer] [facility]. provides no warranty or guarantee of the accuracy or completeness of information in this document.
--- NOTE | 2024-07-01 21:46 | ED.GENADUL1 ---
HPI HPI - General Adult General Chief complaint: Upper Respiratory Infection Stated complaint: chills, body aches Time Seen by Provider: 07/01/24 21:28 Source: patient Mode of arrival: walk-in Limitations: no limitations History of Present Illness HPI narrative: 83-year-old male presents for cough and weakness. It started this morning. Other family members are not ill. No fever or vomiting but he has been coughing up a small amount of phlegm. He does not complain of chest pain. Related Data Home Medications ?Medication ?Instructions ?Recorded ?Confirmed aspirin 81 mg tablet,delayed 81 mg PO DAILY 10/20/22 07/01/24 release (Adult Low Dose Aspirin) atorvastatin 40 mg tablet 40 mg PO BEDTIME 10/20/22 07/01/24 clopidogrel 75 mg tablet 75 mg PO DAILY 10/20/22 07/01/24 isosorbide mononitrate 30 mg 30 mg PO DAILY 10/20/22 07/01/24 tablet,extended release 24 hr nitroglycerin 0.4 mg sublingual 0.4 mg sublingual Q5M 10/20/22 07/01/24 tablet carvedilol 6.25 mg tablet 6.25 mg PO Q12H 07/01/24 07/01/24 magnesium oxide 420 mg tablet 840 mg PO DAILY 07/01/24 07/01/24 Previous Rx's ?Medication ?Instructions ?Recorded lisinopril 20 mg tablet 20 mg PO DAILY #30 tabs 05/23/23 Allergies Allergy/AdvReac Type Severity Reaction Status Date / Time No Known Drug Allergies Allergy Verified 07/01/24 21:34 Opioid HPI Opioid Management Most Recent Opioid Data: Last Pain Scale 7 05/22/23 21:06 05/22/23 Review of Systems ROS Narrative A ten point review of systems is negative except as noted above. [facility] Medical History (Updated 07/01/24 @ 23:47 by Tang Ware MD) Acute renal disease ?N28.9 - Disorder of kidney and ureter, unspecified (ICD-10) Acute hypotension ?I95.9 - Hypotension, unspecified (ICD-10) Atypical chest pain ?R07.89 - Other chest pain (ICD-10) Myocardial infarct ?I21.9 - Acute myocardial infarction, unspecified (ICD-10) Surgical History (Updated 05/22/23 @ 23:36 by Tiffany Bah) S/P triple vessel bypass ?Z95.1 - Presence of aortocoronary bypass graft (ICD-10) Social History Smoking status: Never smoker Highest level of school completed/degree received: 11th grade Little interest or pleasure in doing things: not at all Feeling down, depressed, or hopeless: not at all Exam Narrative Exam Narrative: Nurses note and vital signs reviewed and patient is not hypoxic. General: The patient appears well and in no apparent distress. Patient is resting comfortably on cart. Skin: Warm, dry, no pallor noted. There is no rash noted. Head: Normocephalic, atraumatic Eye: Normal conjunctiva, no drainage Ears, Nose, Mouth, and Throat: oral mucosa is moist. Nares patent. Cardiovascular: Regular Rate and Rhythm Respiratory: Patient is in no distress, no accessory muscle use, lungs are clear to auscultation, no wheezing, rales or rhonchi Back: non-tender GI: Soft and nontender Musculoskeletal: The patient has no evidence of calf tenderness, no pitting edema, symmetrical pulses noted bilaterally Neurological: A&O, normal speech Psychiatric: Cooperative Constitutional Vital Signs, click to edit/add: Last Vital Signs Temp 99.3 F 07/01/24 21:34 Pulse 91 H 07/01/24 22:09 Resp 19 07/01/24 22:09 BP 171/87 H 07/01/24 22:30 Pulse Ox 92 L 07/01/24 22:40 O2 Del Method Room Air 07/01/24 21:46 Course Vital Signs Vital signs: Vital Signs Temperature 99.3 F 07/01/24 21:34 Pulse Rate 91 H 07/01/24 21:34 Respiratory Rate 18 07/01/24 21:34 Blood Pressure 184/99 H 07/01/24 21:34 Pulse Oximetry 97 07/01/24 21:34 Oxygen Delivery Method Room Air 07/01/24 21:34 Temperature 99.3 F 07/01/24 21:34 Pulse Rate 91 H 07/01/24 22:09 Respiratory Rate 19 07/01/24 22:09 Blood Pressure 171/87 H 07/01/24 22:30 Pulse Oximetry 92 L 07/01/24 22:40 Oxygen Delivery Method Room Air 07/01/24 21:46 Medical Decision Making MDM Narrative Medical decision making narrative: All testing is negative including chest x-ray and COVID and influenza swabs. My clinical impression is that he has a viral URI. Antibiotic not indicated. Treatment diagnosis and follow-up were discussed with the patient and his family. Lab Data Lab results reviewed: Yes I reviewed the patient's lab results Labs: Lab Results 07/01/24 07/01/24 Range/Units 21:44 21:52 WBC 10.2 (4.0-11.0) 10^3/uL RBC 5.50 (4.70-6.10) 10^6/uL Hgb 15.6 (14.0-18.0) g/dL Hct 46.7 (42.0-54.0) % MCV 84.9 (80.0-94.0) fL MCH 28.4 (25.9-34.0) pg MCHC 33.4 (29.9-35.2) g/dL RDW 13.4 (11.0-15.0) % Plt Count 187 (150-450) 10^3/uL MPV 10.1 (9.5-13.5) fL Seg Neuts % (Manual) 76.0 H (43.0-75.0) Lymphocytes % (Manual) 4.0 L (20.5-60.0) % Monocytes % (Manual) 15.0 H (1.7-12.0) % Eosinophils % (Manual) 4.0 (0.9-7.0) % Basophils % (Manual) 1.0 (0.2-2.0) % Neutrophils # (Manual) 7.75 H (1.4-6.5) 10^3/uL Lymphocytes # (Manual) 0.40 L (1.20-3.80) 10^3/uL Monocytes # (Manual) 1.53 H (0.30-0.80) 10^3/uL Eosinophils # (Manual) 0.40 (0.00-0.70) 10^3/uL Basophils # (Manual) 0.10 (0.00-0.10) 10^3/uL Sodium 139 (136-145) mmol/L Potassium 4.4 (3.5-5.1) mmol/L Chloride 102 (98-107) mmol/L Carbon Dioxide 26.4 (21.0-32.0) mmol/L Anion Gap 15.0 BUN 17.0 (7.0-18.0) mg/dL Creatinine 1.28 (0.70-1.30) mg/dL Est GFR ( Amer) >60 (>=60 mL/min/1.73m^2) Est GFR (Non-Af Amer) 54 L (>=60 mL/min/1.73m^2) BUN/Creatinine Ratio 13.3 Glucose 95 (74-106) mg/dL Calcium 9.0 (8.5-10.1) mg/dL Influenza Type A Ag Negative Influenza Type B Ag Negative SARS-CoV-2 Ag (CV2AG) Negative (NEGATIVE) Imaging Data Chest x-ray: Radiologist's impression: Chest x-ray shows normal heart size with prior sternotomy, no lobar consolidation or edema Discharge Plan Discharge Chief Complaint: Upper Respiratory Infection Clinical Impression: Viral URI Patient Disposition: Home, Self-Care Time of Disposition Decision: 23:47 Condition: Good Mode of Transportation: Private Vehicle Prescriptions / Home Meds: No Action atorvastatin 40 mg tablet 40 mg PO BEDTIME clopidogrel 75 mg tablet 75 mg PO DAILY isosorbide mononitrate 30 mg tablet extended release 24 hr 30 mg PO DAILY nitroglycerin 0.4 mg tablet, sublingual 0.4 mg sublingual Q5M aspirin [Adult Low Dose Aspirin] 81 mg tablet,delayed release (DR/EC) 81 mg PO DAILY lisinopril 20 mg Tablet 20 mg PO DAILY Qty: 30 11RF carvedilol 6.25 mg tablet 6.25 mg PO Q12H magnesium oxide 420 mg tablet 840 mg PO DAILY Print Language: Macanese Instructions: Upper Respiratory Infection (ED) Referrals: PHOENIX GONZALEZ [Primary Care Provider] - 1 week
[2024-07-01 22:06] LABS: Hematocrit 46.7 % (42.0-54.0); Hemoglobin 15.6 g/dL (14.0-18.0); Mean Corpuscular HGB Conc 33.4 g/dL (29.9-35.2); Mean Corpuscular Hemoglobin 28.4 pg (25.9-34.0); Mean Corpuscular Volume 84.9 fL (80.0-94.0); Mean Platelet Volume 10.1 fL (9.5-13.5); Platelet Count 187 10^3/uL (150-450); Red Cell Distribution Width 13.4 % (11.0-15.0); White Blood Count 10.2 10^3/uL (4.0-11.0)
[2024-07-01 22:07] LABS: BUN Creatinine Ratio 13.3; Carbon Dioxide 26.4 mmol/L (21.0-32.0); Chloride 102 mmol/L (98-107); Estimated GFR (African America >60 (>=60 mL/min/1.73m^2); Estimated GFR (Non-African Ame 54 (>=60 mL/min/1.73m^2); Glucose 95 mg/dL (74-106); Potassium 4.4 mmol/L (3.5-5.1); Sodium 139 mmol/L (136-145)
[2024-07-01 22:10] LABS: Influenza Virus A Antigen Negative; Influenza Virus B Antigen Negative; Internal Control Within Normal Limits; SARS-CoV-2 Ag NEGATIVE (NEGATIVE)
[2024-07-01 22:19] LABS: Monocytes Absolute Manual 1.53 10^3/uL (0.30-0.80); Segmented Neut Absolute Manual 7.75 10^3/uL (1.4-6.5)
--- NOTE | 2024-07-01 23:00 | PC.NURSE ---
i informed this patient we are still waiting on x-ray results to come back
--- NOTE | 2024-07-02 00:36 | PC.NURSE ---
i gave this patient verbal and written discharge orders and this patient voices yes to understanding these. at time of discharge orders this patient voices no concerns and shows no signs of distress
== END 2024-07-02 00:18 | disposition home or self-care (01) ==
PROVIDERS: Emergency Provider Emergency Medicine; PCP Internal Medicine
DX: J06.9 Acute upper respiratory infection, unspecified (principal); Z95.1 Presence of aortocoronary bypass graft
CPT/HCPCS: 36415; 71045; 80048; 85007; 85027; 87804; 87811; 99284

== ENCOUNTER 2024-08-31 13:23 | Emergency (ER) | payer MEDICARE, SELFPAY ==
[2024-08-31] VITALS (59 sets, daily range): BP systolic 102–148; BP diastolic 54–72; PULSE 71–96; TEMP 36.7–36.9; O2SAT 96–100; BMI 25.7
[2024-08-31 14:13] LABS: Basophils Absolute Auto 0.1 10^3/uL (0.0-0.1); Basophils Percent Auto 0.5 % (0.2-2.0); Eosinophils Absolute Auto 0.1 10^3/uL (0.0-0.7); Eosinophils Percent Auto 0.7 % (0.9-7.0); Hematocrit 24.5 % (42.0-54.0); Hemoglobin 7.9 g/dL (14.0-18.0); Immature Granulocytes Abs Auto 0.06 10^3/uL (0.00-0.03); Immature Granulocytes Pct Auto 0.5 % (0.0-0.5); Lymphocytes Absolute Auto 2.4 10^3/uL (1.2-3.8); Lymphocytes Percent Auto 19.9 % (20.5-60.0); Mean Corpuscular HGB Conc 32.2 g/dL (29.9-35.2); Mean Corpuscular Hemoglobin 28.7 pg (25.9-34.0); Mean Corpuscular Volume 89.1 fL (80.0-94.0); Mean Platelet Volume 10.7 fL (9.5-13.5); Monocytes Absolute Auto 0.9 10^3/uL (0.3-0.8); Monocytes Percent Auto 7.4 % (1.7-12.0); Neutrophils Absolute Auto 8.5 10^3/uL (1.4-6.5); Platelet Count 249 10^3/uL (150-450); Red Blood Count 2.75 10^6/uL (4.70-6.10); Red Cell Distribution Width 16.1 % (11.0-15.0); White Blood Count 11.9 10^3/uL (4.0-11.0)
--- NOTE | 2024-08-31 14:18 | ED.GENADUL1 ---
HPI HPI - General Adult General Chief complaint: Shortness of Breath/Dyspnea Stated complaint: SOB, DIZZINESS Time Seen by Provider: 08/31/24 13:37 Source: patient and family Mode of arrival: walk-in Limitations: no limitations History of Present Illness HPI narrative: An 83-year-old male who presents to the emergency department today for evaluation concerns for orthostatic lightheadedness and exertional dyspnea. He endorses the symptoms have been ongoing over the past 4 days. He states he does feel lightheaded when getting up from a seated position. He mentions he additionally has had some exertional dyspnea. He denies any fevers or cough/cold symptoms. No syncopal episodes. He denies any chest pain. No abdominal pain or nausea/vomiting/diarrhea. He has otherwise a somewhat poor historian and mentions he had bypass surgery remotely 15 years ago. He believes he is on antihypertensive medication. He does not believe he is on any diuretic therapy. No history of VTE. He denies any peripheral edema or orthopnea. He is here with a grandson who endorses there is concern for possible dark stools. Patient states over the past 3 days he has had some black stools that is not typical for him. Related Data Home Medications ?Medication ?Instructions ?Recorded ?Confirmed aspirin 81 mg tablet,delayed 81 mg PO DAILY 10/20/22 07/01/24 release (Adult Low Dose Aspirin) atorvastatin 40 mg tablet 40 mg PO BEDTIME 10/20/22 07/01/24 clopidogrel 75 mg tablet 75 mg PO DAILY 10/20/22 07/01/24 isosorbide mononitrate 30 mg 30 mg PO DAILY 10/20/22 07/01/24 tablet,extended release 24 hr nitroglycerin 0.4 mg sublingual 0.4 mg sublingual Q5M 10/20/22 07/01/24 tablet carvedilol 6.25 mg tablet 6.25 mg PO Q12H 07/01/24 07/01/24 magnesium oxide 420 mg tablet 840 mg PO DAILY 07/01/24 07/01/24 Previous Rx's ?Medication ?Instructions ?Recorded lisinopril 20 mg tablet 20 mg PO DAILY #30 tabs 05/23/23 Allergies Allergy/AdvReac Type Severity Reaction Status Date / Time No Known Drug Allergies Allergy Verified 08/31/24 13:47 Opioid HPI Opioid Management Most Recent Opioid Data: Last Pain Scale 7 05/22/23, 21:06 Review of Systems ROS Status of ROS 10 or more systems reviewed and unremarkable except as noted in history and below [facility] Medical History (Updated 08/31/24 @ 17:40 by Lanie Shaver NP) Acute renal disease ?N28.9 - Disorder of kidney and ureter, unspecified (ICD-10) Acute hypotension ?I95.9 - Hypotension, unspecified (ICD-10) Atypical chest pain ?R07.89 - Other chest pain (ICD-10) Myocardial infarct ?I21.9 - Acute myocardial infarction, unspecified (ICD-10) Surgical History (Updated 05/22/23 @ 23:36 by Tiffany Bah) S/P triple vessel bypass ?Z95.1 - Presence of aortocoronary bypass graft (ICD-10) Social History Smoking status: Never smoker Highest level of school completed/degree received: 11th grade Little interest or pleasure in doing things: not at all Feeling down, depressed, or hopeless: not at all Exam Narrative Exam Narrative: Constituational: Awake/ alert, no apparent distress, well hydrated HENMT: normocephalic, external ears normal, moist oral mucous membranes and oropharynx normal Eyes: EOMI and conjunctivae normal Neck: ROM intact Chest: inspection of chest normal Respiratory: Normal respiratory effort, clear to auscultation bilaterally with good aeration throughout Cardio: regular rate and regular rhythm GI: soft to palpation and non-tender Back: nontender MSK: No edema, +NVI Skin: no rashes or petechiae Neuro: no focal deficits, normal gait Psych: mental status grossly normal Constitutional Vital Signs, click to edit/add: Last Vital Signs Temp 98.5 F 08/31/24 19:09 Pulse 83 08/31/24 19:09 Resp 22 H 08/31/24 19:09 BP 141/72 08/31/24 19:09 Pulse Ox 99 08/31/24 19:09 O2 Del Method Room Air 08/31/24 13:47 Course Vital Signs Vital signs: Vital Signs Pulse Rate 90 08/31/24 13:45 Respiratory Rate 25 H 08/31/24 13:45 Temperature 98.5 F 08/31/24 19:09 Pulse Rate 83 08/31/24 19:09 Respiratory Rate 22 H 08/31/24 19:09 Blood Pressure 141/72 08/31/24 19:09 Pulse Oximetry 99 08/31/24 19:09 Oxygen Delivery Method Room Air 08/31/24 13:47 Medical Decision Making MDM Narrative Medical decision making narrative: Patient is a nontoxic and well-appearing 83-year-old male who presented to the emergency department today for evaluation concerns for orthostatic lightheadedness and exertional dyspnea. Initial examination of vital signs overall stable with exception patient does have positive orthostatic vital signs with SBP 130 -> that reduced to SBP of 102 with standing. He was reportedly symptomatic with this. Patient did receive a liter of IV fluids. EKG without acute changes and troponin is negative x 1. Does not appear to be exhibiting any ischemic symptoms and does appear overall euvolemic on exam. Labs leukocytosis, noted anemia with Hgb 7.9 and this is significantly down trended from Hgb of 15.6 that was on 07/01/2024. No thrombocytopenia. Stool is positive for occult blood. Electrolytes including renal and hepatic function otherwise stable. Discussed patient's condition with Dr. Phan (hospitalist at [facility]) 1730-> patient for transfer for anemia with GI bleed. As above findings and recommendations with the patient. He additionally is agreeable to plan to transfer via ambulance for further care of the above Medical Records Medical records reviewed: Yes I reviewed the patient's medical records Lab Data Lab results reviewed: Yes I reviewed the patient's lab results Labs: Lab Results 08/31/24 08/31/24 Range/Units 13:57 15:20 WBC 11.9 H (4.0-11.0) 10^3/uL RBC 2.75 L (4.70-6.10) 10^6/uL Hgb 7.9 L (14.0-18.0) g/dL Hct 24.5 L (42.0-54.0) % MCV 89.1 (80.0-94.0) fL MCH 28.7 (25.9-34.0) pg MCHC 32.2 (29.9-35.2) g/dL RDW 16.1 H (11.0-15.0) % Plt Count 249 (150-450) 10^3/uL MPV 10.7 (9.5-13.5) fL Neut % (Auto) 71.0 (43.0-75.0) % Lymph % (Auto) 19.9 L (20.5-60.0) % [place] % (Auto) 7.4 (1.7-12.0) % Eos % (Auto) 0.7 L (0.9-7.0) % Baso % (Auto) 0.5 (0.2-2.0) % Neut # (Auto) 8.5 H (1.4-6.5) 10^3/uL Lymph # (Auto) 2.4 (1.2-3.8) 10^3/uL [place] # (Auto) 0.9 H (0.3-0.8) 10^3/uL Eos # (Auto) 0.1 (0.0-0.7) 10^3/uL Baso # (Auto) 0.1 (0.0-0.1) 10^3/uL Abs Immat Gran (auto) 0.06 H (0.00-0.03) 10^3/uL Imm/Tot Granulo (auto) 0.5 (0.0-0.5) % D-Dimer <0.19 (<=0.59) mg/L FEU Sodium 139 (136-145) mmol/L Potassium 4.2 (3.5-5.1) mmol/L Chloride 103 (98-107) mmol/L Carbon Dioxide 26.4 (21.0-32.0) mmol/L Anion Gap 13.8 BUN 32.0 H (7.0-18.0) mg/dL Creatinine 1.27 (0.70-1.30) mg/dL Est GFR ( Amer) >60 (>=60 mL/min/1.73m^2) Est GFR (Non-Af Amer) 54 L (>=60 mL/min/1.73m^2) BUN/Creatinine Ratio 25.2 Glucose 154 H (74-106) mg/dL Calcium 8.8 (8.5-10.1) mg/dL Total Bilirubin 1.2 H (0.2-1.0) mg/dL AST 20 (15-37) U/L ALT 22 (16-63) U/L Alkaline Phosphatase 57 (46-116) U/L Troponin I High Sens 21.8 (4.0-76.1) pg/mL NT-Pro-B Natriuret Pep 181.0 (<=1800.0) pg/mL Total Protein 6.2 L (6.4-8.2) g/dL Albumin 3.5 (3.4-5.0) g/dL Globulin 2.7 g/dL Albumin/Globulin Ratio 1.3 Stool Occult Blood Positive A Discharge Plan Discharge Chief Complaint: Shortness of Breath/Dyspnea Clinical Impression: GI (gastrointestinal bleed), Anemia, Orthostatic hypotension Patient Disposition: [facility]
[2024-08-31 14:30] LABS: Alanine Aminotransferase 22 U/L (16-63); Albumin Globulin Ratio 1.3; Albumin Level 3.5 g/dL (3.4-5.0); Alkaline Phosphatase 57 U/L (46-116); Anion Gap 13.8; Aspartate Amino Transferase 20 U/L (15-37); BUN Creatinine Ratio 25.2; Bilirubin Total 1.2 mg/dL (0.2-1.0); Calcium 8.8 mg/dL (8.5-10.1); Carbon Dioxide 26.4 mmol/L (21.0-32.0); Chloride 103 mmol/L (98-107); D Dimer <0.19 mg/L FEU (<=0.59); Estimated GFR (African America >60 (>=60 mL/min/1.73m^2); Estimated GFR (Non-African Ame 54 (>=60 mL/min/1.73m^2); Globulin 2.7 g/dL; Glucose 154 mg/dL (74-106); Potassium 4.2 mmol/L (3.5-5.1); Sodium 139 mmol/L (136-145); Total Protein 6.2 g/dL (6.4-8.2)
[2024-08-31] MEDS: 0.9 % SODIUM CHLORIDE 1,000 ML 1000 ML IV ×2 (14:30→15:30)
[2024-08-31 14:33] LABS: Troponin I High Sensitivity 21.8 pg/mL (4.0-76.1)
[2024-08-31 16:26] LABS: Internal Control Within Normal Limits; Occult Blood Positive
--- NOTE | 2024-08-31 17:08 | ECG_ITS ---
[facility] Test Date: 2024-08-31 Pat Name: LIDA BOB Department: Room: - Gender: Male Rate And Cost Analyst: : 1940 Requested By: 1030 Order Number: [id number] Vashti MD: EARL GUZMAN M.D. Measurements Intervals [place] Rate: 86 P: 24 MS: 204 QRS: -10 QRSD: 82 T: 90 QT: 322 QTc: 366 Interpretive Statements 1100 Sinus rhythm 3134 Anterior myocardial infarction, age undetermined 3634 Inferior myocardial infarction, age undetermined 7300 Indeterminate axis 9150 abnormal ECG Compared to ECG 05/23/2023 05:19:37 Indeterminate axis now present First degree AV block no longer present Left posterior fascicular block no longer present Electronically Signed On 08-31-2024 23:02:46 EDT by EARL GUZMAN M.D.
--- NOTE | 2024-08-31 21:52 | PC.NURSE ---
[facility] arrives and I gave patient report and paper work with the EMS crew. this patient voices no concerns and shows no signs of distress
== END 2024-08-31 21:52 | disposition short-term general hospital (02) ==
PROVIDERS: Nurse Practitioner; Emergency Provider Emergency Medicine; PCP Internal Medicine
DX: K92.2 Gastrointestinal hemorrhage, unspecified (principal); I95.1 Orthostatic hypotension; D64.9 Anemia, unspecified; R06.09 Other forms of dyspnea; Z95.1 Presence of aortocoronary bypass graft
CPT/HCPCS: 36415; 71046; 80053; 83880; 84484; 85025; 85378; 93005; 96360; 96361; 99285; G0328

== ENCOUNTER 2024-09-05 08:56 | Outpatient (OUT) | payer MEDICARE, SELFPAY ==
--- OUTSIDE RECORDS SUMMARY | 2024-09-05 09:21 | XMS_ITS | CCD ---
Author Organization [facility] Care Team Providers Care Electronics Technician Apprentice Name Role Phone PHYSICIAN, DEFAULT Admitting Unavailable PHYSICIAN, DEFAULT Attending Unavailable SCOTT TAI Primary Care Unavailable VIDAL ODOM Attending Unavailable VIDAL ODOM Admitting Unavailable SCOTT TAI Primary Care Unavailable PADMA PRADO Referring Unavailable NC Procedure Practitioner UnavailBINDU Greenwood Surgeon Unavailable PAY, DR MORTON Admitting Unavailable CARLOS, DR GARIBAY Primary Care Unavailable PAY, DR MORTON Attending Unavailable PAY, DR MORTON Consulting Unavailable STACY RALPH Consulting Unavailable AHANDRES VIDAL Consulting Unavailable Pernell Sarmiento Consulting Unavailable DEBI, DR JASKARAN Watters Consulting Unavailable CECI CADENA Attending Unavailable CECI CADENA Admitting Unavailable CARLOS, DR GARIBAY Primary Care Unavailable CECI CADENA Consulting Unavailable CARLOS, DR GARIBAY Primary Care Unavailable CECI CADENA Admitting Unavailable CECI CADENA Attending Unavailable STACY RALPH Consulting Unavailable JOHAN, DR ROUSE Consulting Unavailable Carlton Galindo Consulting Unavailable Driss Smith Unavailable [phone] Scott Tai MD Unavailable Scott Tai MD Primary Care Provider [phone] SCOTT TAI Attending Unavailable RONNIE OLVERA Attending Unavailable SCOTT TAI Attending Unavailable SCOTT TAI Attending Unavailable SCOTT TAI Attending Unavailable DEBBI MURCIA Attending Unavailable Nicole Ojeda Attending Unavailable Nicole Ojeda Admitting Unavailable Candi Clark Consulting Unavailable Candi Clark Consulting Unavailable Candi Clark Consulting Unavailable Candi Clark Consulting Unavailable MD Candi Clark Consulting Unavailab SCOTT Lugo Primary Care Physician [phone] Jazmin White Attending Unavaila CANDI Mendoza Attending Unavailable CANDI QUIROS Attending Unavailable Nicole Ojeda Admitting Unavailable Nicole Ojeda Attending Unavailable Candi Clark Consulting Unavailable Candi Clark Consulting Unavailable MD Candi Clark Consulting Unavailab le Candi Clark Consulting Unavailable Allergies Allergy Classification Reported Allergen(s) Allergy Type Date of Onset Reaction(s) Facility (1 source) 97684,00 Drug allergy (disorder) 02-21-2010 [facility] Repository Medications Current Medications Medication Drug Class(es) Dates Sig (Normalized) Sig (Original) amylase 699689 unt / lipase 75885 unt / protease [id number] unt delayed release oral capsule (5 sources) Start: 10-02-2021 take 1 capsule by mouth every eight hours Creon [id number] UNIT 1 CAPSULE Orally THREE TIMES A DAY for 30 days Sep, Active take 54098-65941 [IU ] by mouth three times daily at mealtime pancrelipase, Mji-Umnu-Poyn, (Creon) 65677-26974 units capsule Take by mouth 3 (three) times a day with meals. 0 Active aspirin 81 mg delayed release oral tablet (13 sources) Platelet Aggregation Inhibitor, Nonsteroidal Anti-inflammatory Drug Start: 09-02-2024 aspirin 81 mg Ora l EC Tab 81 mg = 1 tab(s), Oral, Daily, Please make sure that aspirin is always enteric coated. May resume on 09/03 if no bleeding, # 30 tab(s), Refills(s) 0 Start Date: 09/02/24 Status: Ordered Quantity: 30.0 Unit: tab(s) Repeat number: 1 take 1 tablet by mouth once mala y aspirin 81 MG EC tablet take 1 tablet (81MG) by oral route every day Oral Active clopidogrel 75 mg oral tablet (13 sources) [id number] Platelet Inhibitor Start: 08-31-2024 take 1 tablet by mouth once daily, then take [id number] tablet by mouth in the morning clopidogrel 75 mg Tab 75 mg = 1 tab(s), Oral, Daily, May resume on 09/05 have labs drawn in a.m. and call PCP for hemoglobin results and to confirm resuming plavix. Start Date: 08/31/24 Status: Ordered Repeat number: 1 Start: 07-20-2023 take 1 tablet by antonio th once daily clopidogrel (Plavix) 75 MG tablet Indications: Atherosclerosis of [place] coronary artery of [place] heart without angina pectoris (CMS/HCC) TAKE 1 TABLET BY MOUTH EVERY DAY FOR 100 DAYS 100 tablet 3 07/20/2023 Active clopidogrel (Jens vix) 75 MG tablet 1 (one) time each day at the same time. 0 Active Hepatic panel, CBC (1 source) Start: 09-02-2024 Hepatic panel, CBC Hepatic panel, CBC, Have labs on 09/05, Print Requisition, Supply Start Date: 09/02/24 Status: Ordered Repeat number: 1 hydrALAZINE hydrochloride 25 mg oral tablet (2 sources) Arteriolar Vasodilator take 1 tablet by mouth every eight hours hydrALAZINE HCl 25 MG 1 tablet with food Orally Three times a day Active 24 hr isosorbide mononitrate 30 mg extended release oral tablet (13 sources) Nitrate Vasodilator Start: 08-31-2024 take 1 tablet by mouth once daily isosorbide mononitrate 30 mg ER Tab TAKE 1 TABLET BY MOUTH EVERY DAY Start Date: 08/31/24 Status: Ordered Repeat number: 1 Start: 06-09-2023 take 1 tablet by antonio th once daily isosorbide mononitrate ER (Imdur) 30 MG 24 hr tablet Indications: Chronic systolic CHF (congestive heart failure), NYHA class 2 (CMS/HCC) TAKE 1 TABLET BY MOUTH EVERY DAY 90 tablet 3 06/09/2023 Active take 1 tablet by antonio th once daily isosorbide mononitrate ER (Imdur) 30 MG 24 hr tablet TAKE 1 TABLET BY MOUTH EVERY DAY for 90 0 Active lisinopril 20 mg oral tablet (15 sources) Angiotensin Converting Enzyme Inhibitor Start: 08-31-2024 lisinopril 20 mg Tab 20 mg = 1 tab(s), Oral, Daily, Hold for systolic blood pressure 110 or less Start Date: 08/31/24 Status: Ordered Repeat number: 1 Start: 12-12-2023 take 1 tablet by antonio th once daily lisinopril 20 MG tablet Take [...] 1 (one) time each day. 0 Active magnesium oxide 400 mg oral tablet (1 source) Start: 08-31-2024 magnesium oxide 400 mg Tab 800 mg = 2 tab(s), Oral, Refills(s) 0 Start Date: 08/31/24 Status: Ordered Repeat number: 1 methylPREDNISolone (2 sources) Corticosteroid Start: 05-27-2023 End: [...] pantoprazole 40 mg delayed release oral tablet (9 sources) Proton Pump Inhibitor Start: 09-02-2024 take 1 tablet by mouth twice daily Pantoprazole [address] Tab 40 mg = 1 tab(s), Oral, BID, # 60 tab(s), Refills(s) 0, Pharmacy: [facility]/pharmacy #[id number], 162.6, cm, 08/31/24 22:50:00 EDT, Height/Length Dosing, 66.6, kg, 08/31/24 22:50:00 EDT, Weight Dosing Start Date: 09/02/24 Status: Ordered Quantity: 60.0 Unit: tab(s) Repeat number: 1 Start: 03-16-2023 End: 03-15-2024 take 1 tablet by mouth in the morning pantoprazole (ProtoNix) 40 MG EC tablet Indications: Dyspepsia Take 1 tablet (40 mg) by mouth in the morning. Do not crush, chew, or split.. 90 tablet 3 03/16/2023 01/13/2024 Discontinued take 1 tablet by antonio th every twenty-four hours Pantoprazole Sodium 40 MG 1 tablet Orally Once a day Active sildenafil 50 mg [...] Spironolactone 25 MG 1 tablet Orally Active Stool Hpylori antigen (1 source) Start: 09-02-2024 Stool Hpylori antigen Stool Hpylori antigen, Please send stool sample cup and depressor for collection and to drop off at hospital, Print Requisition, Supply Start Date: 09/02/24 Status: Ordered Repeat number: 1 sucralfate 1000 mg oral tablet (1 source) Aluminum Complex Start: 09-02-2024 End: 10-02-2024 take 1 tablet by mouth four times daily for constipation Carafate 1 gram Tab 1 gm = 1 tab(s), Oral, QID, Monitor for constipation, X 30 day(s), # 120 tab(s), Refills(s) 0, Pharmacy: [facility]/pharmacy #[id number], 162.6, cm, 08/31/24 22:50:00 EDT, Height/Length Dosing, 66.6, kg, 08/31/24 22:50:00 EDT, Weight Dosing Start Date: 09/02/24 Stop Date: 10/02/24 Status: Ordered Quantity: 120.0 Unit: tab(s) Repeat number: 1 tadalafil 20 mg oral tablet (4 sources) Phosphodiesterase 5 Inhibitor Start: 02-11-2024 End: 05-04-2024 take 1 tablet by mouth once daily as needed tadalafil (Cialis) 20 MG tablet Indications: Impotence of organic origin Take 1 tablet (20 mg) by mouth Daily as needed for erectile dysfunction 10 tablet 02/11/2024 05/04/2024 Discontinued (Therapy completed) Completed/Discontinued Medications Medication Drug Class(es) Dates Sig (Normalized) Sig (Original) atorvastatin 40 mg oral tablet (13 sources) HMG-CoA Reductase Inhibitor Start: 08-31-2024 take 1 tablet by mouth once daily at bedtime atorvastatin 40 mg Tab 80 mg = 2 tab(s), TAKE 1 TABLET BY MOUTH EVERYDAY AT BEDTIME Start Date: 08/31/24 Status: Ordered Repeat number: 1 Start: 04-05-2024 take 1 tablet by antonio th once [...] day Active carvedilol 6.25 mg oral tablet (13 sources) alpha-Adrenergic Kary, beta-Adrenergic Kary Start: 08-31-2024 take 1 tablet by mouth once daily at mealtime carvedilol 6.25 mg Tab 6.25 mg = 1 tab(s), BID, TAKE 1 TABLET BY MOUTH EVERY MORNING AND EVENING WITH MEALS Start Date: 08/31/24 Status: Ordered Repeat number: 1 Start: 12-24-2023 take 1 tablet by antonio th at mealtime carvedilol (Coreg) 6.25 MG tablet [...] with food Orally Twice a day Active Problems Active Problems Problem Classification Problem Date Documented Da te Episodic/Chronic Abdominal pain (16 sources) Epigastric pain; Translations: [Unspecified abdominal pain] Onset: 2 Episodic Acute posthemorrhagic anemia (7 sources) Acute posthemorrhagic anemia; Translations: [D62] Onset: 5 Episodic Administrative/social admission (2 sources) Patient encounter status; Translations: [Other specified counseling] 01-13-2024 Episodic Cardiac dysrhythmias (12 sources) Cardiac arrhythmia; Translations: [Cardiac arrhythmia, unspecified] Onset: 3 10-23-2022 Chronic Cardiac dysrhythmias (1 source) Bradycardia, unspecified; Translations: [BRADYCARDIA UNSPECIFIED] Onset: 2 Episodic Cataract (12 sources) Nuclear sclerosis; Translations: [Age-related nuclear cataract, bilateral] Onset: 3 10-23-2022 Chronic Chronic kidney disease (16 sources) Chronic kidney disease stage 3A ; Translations: [Stage 3a chronic kidney disease (HCC)] Onset: 3 10-23-2022 Chronic Congestive heart failure; nonhypertensive (20 sources) Chronic systolic heart failure; Translations: [Chronic systolic (congestive) heart failure] Onset: 3 10-23-2022 Chronic Coronary atherosclerosis and other heart disease (20 sources) Old myocardial infarction; Translations: [Atherosclerotic heart disease of [place] coronary artery without angina pectoris] Onset: 2 Resolved: 3 05-11-2023 Chronic Coronary atherosclerosis and other heart disease (1 source) Presence of aortocoronary bypass graft; Translations: [PRESENCE AORTOCORONARY BYPASS GRAFT] Onset: 2 Episodic Disorders of lipid metabolism (15 sources) Hyperlipidemia; Translations: [Hyperlipidemia, unspecified] Onset: 3 10-23-2022 Chronic Diverticulosis and diverticulitis (14 sources) Diverticulosis of colon; Translations: [Diverticulosis of large intestine without perforation or abscess without bleeding] Onset: 3 10-23-2022 Chronic Essential hypertension (20 sources) Essential (primary) hypertension; Translations: [Benign essential hypertension] Onset: 2 Resolved: 3 Chronic Gastrointestinal hemorrhage (7 sources) Gastrointestinal hemorrhage, unspecified; Translations: [K92.2] Onset: 5 Episodic Heart valve disorders (20 sources) Mitral valve regurgitation; Translations: [Nonrheumatic mitral (valve) insufficiency] Onset: 3 10-23-2022 Chronic Hyperplasia of prostate (14 sources) Benign prostatic hyperplasia; Translations: [Benign prostatic hyperplasia with lower urinary tract symptoms] Onset: 3 10-23-2022 Chronic Hypertension with complications and secondary hypertension (4 sources) Secondary hypertension; Translations: [Secondary hypertension, unspecified] Onset: 4 05-04-2024 Chronic Other aftercare (1 source) USP (current) use of aspirin; Translations: [ONLINE RETAILER CURRENT USE OF ASPIRIN] Onset: 2 Episodic Other aftercare (1 source) Other remote computer terminal operator (current) drug therapy; Translations: [OTH ASSISTED CURRENT DRUG THERAPY] Onset: 2 Episodic Other aftercare (1 source) USP (current) use of antithrombotics/antipl atelets; Translations: [ONLINE RETAILER ANTITHROMBOT/ANTIPLATL ETS] Onset: 2 Episodic Other aftercare (1 source) Long-term current use of drug therapy; Translations: [Other group home (current) drug therapy] Onset: 5 Episodic Other and ill-defined heart disease (14 sources) Bilateral enlargement of atria; Translations: [Cardiomegaly] Onset: 3 10-23-2022 Chronic Other ear and sense organ disorders (12 sources) Sensorineural hearing loss, bilateral; Translations: [Sensorineural hearing loss, bilateral] Onset: 3 10-23-2022 Chronic Other ear and sense organ disorders (10 sources) Bilateral hearing loss; Translations: [Unspecified hearing loss, bilateral] Onset: 3 03-16-2023 Chronic Other liver diseases (2 sources) Liver disease, unspecified; Translations: [LIVER DISEASE UNSPECIFIED] Onset: 2 Chronic Other liver diseases (2 sources) Lesion of liver; Translations: [Liver disease, unspecified] Chronic Other male genital disorders (10 sources) Secondary erectile dysfunction; Translations: [Male erectile dysfunction, unspecified] Onset: 3 10-23-2022 Chronic Other nervous system disorders (12 sources) Carpal tunnel syndrome of right wrist; Translations: [Carpal tunnel syndrome, right upper limb] Onset: 3 10-23-2022 Chronic Other non-epithelial cancer of skin (20 sources) Basal cell carcinoma of back; Translations: [Basal cell carcinoma of skin of other part of trunk] Onset: 3 10-23-2022 Episodic Other nutritional; endocrine; and metabolic disorders (1 source) Hypocalcemia; Translations: [Hypocalcemia] Onset: 5 Chronic Other screening for suspected conditions (not mental disorders or infectious disease) (20 sources) Other specified abnormal findings of blood chemistry; Translations: [Raised prostate specific antigen] Onset: 2 Resolved: 3 10-23-2022 Episodic Pancreatic disorders (not diabetes) (20 sources) Recurrent pancreatitis; Translations: [Other chronic pancreatitis] Onset: 3 Resolved: 3 10-23-2022 Chronic Residual codes; unclassified (1 source) Acquired absence of other specified parts of digestive tract; Translations: [ACQ ABSENCE OTH PART DIGESTV TRACT] Onset: 2 Episodic Retinal detachments; defects; vascular occlusion; and retinopathy (14 sources) Nonexudative age-related macular degeneration; Translations: [Nonexudative age-related macular degeneration, bilateral, intermediate dry stage] Onset: 3 10-23-2022 Chronic Screening and history of mental health and substance abuse codes (1 source) Personal history of nicotine dependence; Translations: [PERSONAL HISTORY OF NICOTINE DEPEND] Onset: 2 Episodic Spondylosis; intervertebral disc disorders; other back [...] Test Name Value Interpretation Reference Range Facility H. pylori Stool Agon 025 H. pylori Ag IA Ql (Stl) Negative Invalid Interpretation Code Negative [facility] Comment on above: Result Comment: Perf ormed at: [facility] [address] [id number] PhD Rosmery Melissa Performed By: #### 1 [id number] #### [facility] [address] [place], [place] [address], [place] [address] 36on 09-02-2024 36 Phone call from Rafael Mckay is requesting to speak with the Who is in office in regards to patient Radha Cabello. Per Nely patient was admitted to [facility] with a GI bleed. Nely would like to hold his Plavix for 72 hour and discharge the patient to home today. Nely would like a Cardiology's blessing to stop Plavix. Patient seen Helene back on 04/12. Please advise. Normal [facility] CHEMISTRYOrdered By: SYSTEM SYSTEM on 09-02-2024 Cobalamin (Vitamin B12) [Mass/Vol] 524 pg/mL Normal 50 - 1500 pg/mL Remisol Chem Ferritin [Mass/Vol] 11 ng/mL Low 24 - 336 ng/mL Remisol Chem Folate [Mass/Vol] 18.5 ng/mL Normal >=6.7ng/mL Remisol Chem Iron [Mass/Vol] 21 ug/dL Low 35 - 153 mcg/dL Remisol Chem Iron binding capacity [Mass/Vol] 395 ug/dL Normal 250 - 400 mcg/dL Remisol Chem LDH 135 [iU]/d Normal 93 - 218 Int._Unit/L Remisol Chem Transferrin [Mass/Vol] 282 mg/dL Normal 200 - 370 mg/dL Remisol Chem TSH Qn 2.11 m[IU]/L Normal 0.34 - 5.60 mcIU/mL Remisol Chem Albumin [Mass/Vol] 3.6 g/dL Normal 3.3 - 5.0 gm/dL Remisol Chem Albumin/Globulin [Mass ratio] 1.9 {ratio} Normal 1.1 - 2.2 Remisol Chem ALP [Catalytic activity/Vol] 46 [iU]/d Normal 21 - 98 Int._Unit/L Remisol Chem ALT No additional P-5'-P [Catalytic activity/Vol] 10 [iU]/d Normal 6 - 46 Int._Unit/L Remisol Chem AST [Catalytic activity/Vol] 14 [iU]/d Normal 5 - 43 Int._Unit/L Remisol Chem Bilirubin [Mass/Vol] 1.6 mg/dL High 0.0 - 1 .1 mg/dL Remisol Chem Bilirubin.direct [Mass/Vol] 0.3 mg/dL Normal 0.0 - 0.4 mg/dL Remisol Chem Bilirubin.indirect [Mass or moles/Vol] 1.3 mg/dL High 0.1 - 0.9 mg/dL Remisol Chem Globulin (S) [Mass/Vol] 1.9 g/dL Normal 1.4 - 4.0 gm/dL Remisol Chem Protein [Mass/Vol] 5.5 g/dL Low 6.0 - 7.8 gm/dL Remisol Chem Discharge Note-Nursingon Discharge Note-Nursing Discharge Note-Nursing RADHA CABELLO :1940 Visit Date:08/31/2024 Inpatient Discharge Instructions Your Care Team Admitting Physician - Rusty KABA, Nicole Consulting Physician - Amber KABA, Candi Wilson Reason for Your Visit sob with exertion, dizziness Your Diagnosis UGI bleed Acute blood loss anemia Hypocalcemia CAD (coronary artery disease) HTN (hypertension), benign Dyslipidemia On deep vein thrombosis (DVT) prophylaxis Tests Performed B12 Level -- Results Pending -- Ferritin -- Results Pending -- Folate Level -- Results Pending -- H. pylori Stool Ag -- Results Pending -- Path. Review -- Results Pending -- TSH With T4fr Reflex -- Results Pending -- Please visit your patient portal for your results or contact your primary care physician. [facility] Is [facility]ations List [facility] (Hepatic panel, CBC) Misc Prescription (Stool Hpylori antigen) aspirin (aspirin 81 mg Oral EC Tab) atorvastatin (atorvastatin 40 mg Tab) carvedilol (carvedilol 6.25 mg Tab) clopidogrel (clopidogrel 75 mg Tab) isosorbide mononitrate (isosorbide mononitrate 30 mg ER Tab) lisinopril (lisinopril 20 mg Tab) magnesium oxide (magnesium oxide 400 mg Tab) pantoprazole (Pantoprazole [address] Tab) sucralfate (Carafate 1 gram Tab) Discharge Vitals Temperature (Axillary) 36.9 ???C Heart Rate (Monitored) 87 Respiratory Rate 18 Blood Pressure 121/70 Weight 64.2 kg What to do next Instructions From Your Doctor Event Name Event Result Discharge Activity Ambulate as tolerated, Activity as tolerated Discharge Restrictions No restrictions Discharge Diet(s) Regular, Fat Modified- Low cholesterol, Low Sodium- 2000 mg Pending Diagnostic Test Results Biopsy/pathology, Other: Anemia panel - please call PCP office on 09/05 for those results Discharge Instructions Please have labs drawn oin 09/05 in a.m. and call PCP in afternoon for hemoglobin results and resuming plavix if levels are stable. Avoid NSAIDsFollow up appts as writtenReturn to the hospital for recurrent symptoms Previously Scheduled Follow-Up Appointments Thursday 9:30 AM EDT With: Cindy KABA, Jazmin Colby Where: [facility] [address] [facility] [place] [address] [place] [phone] New Follow Up Appointments after Discharge Follow Up with Jazmin White When: 09/30/2024 09:30 AM EDT Where: [address] [facility] [address] [place] [phone] Business (1) Follow Up with EARL GUZMAN When: 09/05/2024 09:45 AM EDT Comments: Appointment has already been scheduled - go to [facility] Follow Up with SCOTT TAI When: Within 1 to 2 days Comments: Call for followup appointment Where: [address] [place] [address] [place] [address]- Business (1) Medications What How Much When Instructions Next Dose New Misc Prescription (Hepatic panel, CBC) 0 Have labs on Printed Prescription New Misc Prescription (Stool Hpylori antigen) 0 Please send stool sample cup and depressor for collection and to drop off at hospital Printed Prescription New pantoprazole (Pantoprazole [address] Tab) 1 Tablets By Mouth 2 times a day Pickup at [facility]/pharmacy #[id number] Tonight at 9:00 PM New sucralfate (Carafate 1 gram Tab) 1 Tablets By Mouth 4 times a day Duration: 30 Days Monitor for constipation Pickup at [facility]/pharmacy #[id number] Today at lunch Changed aspirin (aspirin 81 mg Oral EC Tab) 1 Tablets By Mouth Every day Please make sure that aspirin is always enteric coated. May resume on if no bleeding Printed Prescription Resume 09/03/2024 Changed clopidogrel (clopidogrel 75 mg Tab) 1 Tablets By Mouth Every day May resume on have labs drawn in a.m. and call PCP for hemoglobin results and to confirm resuming plavix. Resume 09/05/2024 Changed lisinopril (lisinopril 20 mg Tab) 1 Tablets By Mouth Every day Hold for systolic blood pressure 110 or less Resume 09/03/2024 Unchanged atorvastatin (atorvastatin 40 mg Tab) 2 Tablets TAKE 1 TABLET BY MOUTH EVERYDAY AT BEDTIME Tonight at bedtime Unchanged carvedilol (carvedilol 6.25 mg Tab) 1 Tablets 2 times a day TAKE 1 TABLET BY MOUTH EVERY MORNING AND EVENING WITH MEALS Tonight at dinner Unchanged isosorbide mononitrate (isosorbide mononitrate 30 mg ER Tab) TAKE 1 TABLET BY MOUTH EVERY DAY 09/03/2024 Unchanged magnesium oxide (magnesium oxide 400 mg Tab) 2 Tablets By Mouth 09/03/2024 Pharmacy Information [facility]/pharmacy #[id number]: [address], [place] [id number] [phone] Test Results CBC BMP WBC: 7.3 E9/L (09/01/24 05:23:00) Glucose Lvl: 76 mg/dL (09/01/24 05:23:00) RBC: 2.3 E12/L Low (09/01/24 05:23:00) BUN: 21 mg/dL (09/01/24 05:23:00) HGB: 9.7 gm/dL Low (09/02/24 09:38:00) Creatinine: 0.8 mg/dL (09/01/24 05:23:00) Hct: 28.8 % Low (09/02/24 09:38:00) BUN/Creat Ratio: 26 High (09/01/24 05:23:00) MCV: 85.6 fL (08/18 (more content not included)... Normal [facility] Ferritinon 09-02-2024 Ferritin [Mass/Vol] 11 ng/mL Low 24-336 [facility] Comment on above: Performed By: #### 2 [id number] #### [facility] [address] [place] [address] Folateon 09-02-2024 Folate [Mass/Vol] 18.5 ng/mL Normal >=6.7 [facility] Comment on above: Performed By: #### 2 [id number] #### [facility] [address] [place] [address] HEMATOLOGYOrdered By: SYSTEM SYSTEM on 09-02-2024 Hematocrit (Bld) [Volume fraction] 28.8 % Low 37.7 - 49.0 % Remisol Heme Hemoglobin (Bld) [Mass/Vol] 9.7 g/dL Low 13.5 - 17.5 gm/dL Remisol Heme Reticulocytes/100 RBC (Bld) 5.8 % High 0.5 - 2.2 % [facility] Heme Comment on above: Result Comment: Reti culocyte count has been corrected for anemia Hematocrit (Bld) [Volume fraction] 24.6 % Low 37.7 - 49.0 % Remisol Heme Hemoglobin (Bld) [Mass/Vol] 8.7 g/dL Low 13.5 - 17.5 gm/dL Remisol Heme Hct & Hgbon 09-02-2024 Hematocrit (Bld) [Volume fraction] 28.8 % Low 37.7-49.0 [facility] Comment on above: Performed By: #### 1 [id number] #### [facility] [address] [place] [address] Hemoglobin (Bld) [Mass/Vol] 9.7 g/dL Low 13.5-17.5 [facility] Comment on above: Performed By: #### 1 [id number] #### [facility] [address] [place] [address] Hematocrit (Bld) [Volume fraction] 24.6 % Low 37.7-49.0 [facility] Comment on above: Performed By: #### 1 [id number] #### [facility] [address] [place] [address] Hemoglobin (Bld) [Mass/Vol] 8.7 g/dL Low 13.5-17.5 [facility] Comment on above: Performed By: #### 1 [id number] #### [facility] [address] [place] [address] Hep Func Panelon 09-02-2024 Albumin [Mass/Vol] 3.6 g/dL Normal 3.3-5.0 [facility] Comment on above: Performed By: #### 2 [id number] #### [facility] [address] [place] [address] Albumin/Globulin (S) [Mass conc ratio] 1.9 Normal 1.1-2.2 [facility] Comment on above: Performed By: #### 2 [id number] #### [facility] [address] [place] [address] ALP [Catalytic activity/Vol] 46 Int._Unit/L Normal 21-98 [facility] Comment on above: Performed By: #### 2 [id number] #### [facility] [address] [place] [address] ALT No additional P-5'-P [Catalytic activity/Vol] 10 Int._Unit/L Normal 6-46 [facility] Comment on above: Performed By: #### 2 [id number] #### [facility] [address] [place] [address] AST [Catalytic activity/Vol] 14 Int._Unit/L Normal 5-43 [facility] Comment on above: Performed By: #### 2 [id number] #### [facility] [address] [place] [address] Bilirubin [Mass/Vol] 1.6 mg/dL High 0.0-1.1 [facility] Comment on above: Performed By: #### 2 [id number] #### [facility] [address] [place] [address] Bilirubin.direct [Mass/Vol] 0.3 mg/dL Normal 0.0-0.4 [facility] Comment on above: Performed By: #### 2 [id number] #### [facility] [address] [place] [address] Bilirubin.indirect [Mass or moles/Vol] 1.3 mg/dL High 0.1-0.9 [facility] Comment on above: Performed By: #### 2 [id number] #### [facility] [address] [place] [address] Globulin (S) [Mass/Vol] 1.9 g/dL Normal 1.4-4.0 [facility] Comment on above: Performed By: #### 2 [id number] #### [facility] [address] [place] [address] Protein [Mass/Vol] 5.5 g/dL Low 6.0-7.8 [facility] Comment on above: Performed By: #### 2 [id number] #### [facility] [address] [place] [address] Inpatient Clinical Summaryon 09-02-2024 Inpatient Clinical Summary Inpatient Clinical Summary [address] [address] Clinical Summary Person Information: Name: RADHA CABELLO Age: 83 Years : 1940 Sex: Male PCP: SCOTT TAI MD Marital Status: Phone: [phone] Race: White Ethnicity: Non- or Language: Slovenian Visit Id: Visit Reason: upper gi bleed Speciality: Acuity: Enc Type: Inpatient Med Service: Medical Arrival: 08/31/2024 17:40:13 Discharge: Dispo Type: Address: [address] [place] [phone] Provider Notes: Diagnosis: 3:Hypocalcemia; 4:CAD (coronary artery disease); 5:HTN (hypertension), benign; 6:Dyslipidemia; 7:On deep vein thrombosis (DVT) prophylaxis Problems No Problems Documented Smoking Status: Never Smoker Functional Status: Sensory Deficits: Hearing deficit, left ear, Hearing deficit, right ear, Other: glasses History of Falls: Mobility Assistance Prior to Admission: ADLs: Minimal assistance Current Level of Assistance for Self-Care/Mobility: Cognitive Status: Allergies No Known Allergies Measurements: Height: 162.56 cm Weight: 64.2 kg Blood Pressure: 121 mmHg / 70 mmHg BMI: 25.2 kg/m2 Procedures No Procedures Documented Immunizations No Immunizations Documented This Visit Final Med List: aspirin (aspirin 81 mg Oral EC Tab) 1 Tablets By Mouth every day. Please make sure that aspirin is always enteric coated. May resume on 09/03 if no bleeding. Refills: 0. atorvastatin (atorvastatin 40 mg Tab) 2 Tablets. TAKE 1 TABLET BY MOUTH EVERYDAY AT BEDTIME. carvedilol (carvedilol 6.25 mg Tab) 1 Tablets 2 times a day. TAKE 1 TABLET BY MOUTH EVERY MORNING AND EVENING WITH MEALS. clopidogrel (clopidogrel 75 mg Tab) 1 Tablets By Mouth every day. May resume on 09/05 have labs drawn in a.m. and call PCP for hemoglobin results and to confirm resuming plavix.. isosorbide mononitrate (isosorbide mononitrate 30 mg ER Tab) TAKE 1 TABLET BY MOUTH EVERY DAY. lisinopril (lisinopril 20 mg Tab) 1 Tablets By Mouth every day. Hold for systolic blood pressure 110 or less. magnesium oxide (magnesium oxide 400 mg Tab) 2 Tablets By Mouth. Misc Prescription (Hepatic panel, CBC) 0. Have labs on 09/05. Refills: 0. Misc Prescription (Stool Hpylori antigen) 0. Please send stool sample cup and depressor for collection and to drop off at hospital. Refills: 0. pantoprazole (Pantoprazole [address] Tab) 1 Tablets By Mouth 2 times a day. Refills: 0. sucralfate (Carafate 1 gram Tab) 1 Tablets By Mouth 4 times a day for 30 Days. Monitor for constipation. Refills: 0. Care Team Members: Attending Physician: Nicole Ojeda MD Consulting Physician: Amber KABA, Candi Wilson Referring Physician: Follow up: With: Address: When: Jazmin White [address] [place] [address], [address], [address] [phone] Business (1) 09/30/2024 9:30 AM With: Address: When: SCOTT TAI [address] [place] [address] Business (1) Within 1 to 2 days Comments: Call for followup appointment With: Address: When: EARL GUZMAN 09/05/2024 9:45 AM Comments: Appointment has already been scheduled - go to [facility] Type Location Start [facility] Follow Up [facility] 09/30/2024 9:30 AM 09/30/2024 9:45 AM Confirmed Patient Education Information: Esophagitis; Gastritis, Adult; Hiatal Hernia pantoprazole, sucralfate Normal [facility] Inpatient Patient Summaryon 09-02-2024 Inpatient Patient Summary Inpatient Patient Summary [address] [address] Patient Discharge Instructions PERSON INFORMATION Name: RADHA CABELLO Date of : 1940 Current Date: 09/02/2024 09:47:18 PHYSICIANS Admitting Physician: Nicole Ojeda MD Primary Care Physician: CARLOS KABA, SCOTT Rod PCP Comment: Discharge Diagnosis: 3:Hypocalcemia; 4:CAD (coronary artery disease); 5:HTN (hypertension), benign; 6:Dyslipidemia; 7:On deep vein thrombosis (DVT) prophylaxis Condition at Discharge: Stable RADHA CABELLO has been given the following list of follow-up instructions, prescriptions, and patient education materials: PATIENT FOLLOW-UP INFORMATION Diet: Regular, Fat Modified- Low cholesterol, Low Sodium- 2000 mg Discharge Activity: Ambulate as tolerated, Activity as tolerated Discharge Restrictions: No restrictions Wound Care Instructions: Remove Your Dressing In Days Call Your Doctor For: IF UNABLE TO CONTACT YOUR PHYSICIAN AND YOU FEEL IT IS AN EMERGENCY, GO TO THE NEAREST EMERGENCY ROOM OR CALL 911 Home Treatment: Devices/Equipment: None Special Services: Additional Instructions: Please have labs drawn oin 09/05 in a.m. and call PCP in afternoon for hemoglobin results and resuming plavix if levels are stable. Avoid NSAIDs Follow up appts as written Return to the hospital for recurrent symptoms Primary Care Physician to provide the following pending test results: Biopsy/pathology, Other: Anemia panel - please call PCP office on 09/05 for those results Follow up: With: Address: When: Jazmin White [address] [place] [address], [facility] [address], [address] [phone] Business (1) 09/30/2024 9:30 AM With: Address: When: SCOTT TAI [address] [place] [address] Business (1) Within 1 to 2 days Comments: Call for followup appointment With: Address: When: EARL GUZMAN 09/05/2024 9:45 AM Comments: Appointment has already been scheduled - go to [facility] In the event that this physician does not participate in your insurance network, please consult with your insurance company to find a nearby participating provider. Type Location Start [facility] Follow Up [facility] 09/30/2024 9:30 AM 09/30/2024 9:45 AM Confirmed Comment: PAULINO Cordoba GEROLD E, have received the attached patient education materials/instructions and have verbalized understanding: Patient Signature Date Clinican/Nurse Signature ___ Date HERE ARE THE MEDICATION CHANGES THAT OCCURRED DURING YOUR HOSPITAL STAY New Medications [id number], [address], [place] [phone], [phone] pantoprazole (Pantoprazole [address] Tab) 1 Tablets By Mouth 2 times a day. Refills: 0. Last Dose: ___Next Dose: ___ sucralfate (Carafate 1 gram Tab) 1 Tablets By Mouth 4 times a day for 30 Days. Monitor for constipation. Refills: 0. Last Dose: ___Next Dose: ___ Printed Prescriptions Misc Prescription (Hepatic panel, CBC) 0. Have labs on 09/05. Refills: 0., Results to Dr. White and PCP Last Dose: ___Next Dose: ___ Misc Prescription (Stool Hpylori antigen) 0. Please send stool sample cup and depressor for collection and to drop off at hospital. Refills: 0., Results to Dr. White and PCP Last Dose: ___Next Dose: ___ Medications to Continue Taking That Have Changed Printed Prescriptions START: aspirin (aspirin 81 mg Oral EC Tab) 1 Tablets By Mouth every day. Please make sure that aspirin is always enteric coated. May resume on 09/03 if no bleeding. Refills: 0. Last Dose: ___Next Dose: ___ STOP: aspirin 81 Milligram By Mouth every day. Other Medications START: clopidogrel (clopidogrel 75 mg Tab) 1 Tablets By Mouth every day. May resume on 09/05 have labs drawn in a.m. and call PCP for hemoglobin results and to confirm resuming plavix.. Last Dose: ___Next Dose: ___ STOP: clopidogrel (clopidogrel 75 mg Tab) 1 Tablets. TAKE 1 TABLET BY MOUTH EVERY DAY. START: lisinopril (lisinopril 20 mg Tab) 1 Tablets By Mouth every day. Hold for systolic blood pressure 110 or less. Last Dose: ___Next Dose: ___ STOP: lisinopril (lisinopril 20 mg Tab) 1 Tablets By Mouth every day. TAKE 1 TABLET BY MOUTH EVERY DAY. Medications to Continue with No Changes Other Medications atorvastatin (atorvastatin 40 mg Tab) 2 Tablets. TAKE 1 TABLET BY MOUTH EVERYDAY AT BEDTIME. Last Dose: ___Next Dose: ___ carvedilol (carvedilol 6.25 mg Tab) 1 Tablets 2 times a day. TAKE 1 TABLET BY MOUTH EVERY MORNING AND EVENING WIT (more content not included)... [facility] Interdisciplinary Note - Dennis e Manageron 09-02-2024 Interdisciplinary Note - Hearing Officer Interdisciplinary Note - Hearing Officer CRM to room 305 Patient is awake, alert and oriented. Patient is from home. Patient Grand son is present and is his ride at [place]. Patient DME, insurance and PCP verified by previous CRM. He sees Dr Tai. Patient is an inpatient, IMM was done on 09/01. Patient came in with upper GIB. Patient is assigned to [employer], see notes. Patient on 09/01 had EGD. Patient Hgb is more stable today. He did get one unit of PRBC. Per Patient he is a DC today. Patient declines any safety concerns to return home. Patient declined need for DME, HH or Paramed. Patient was provided CRM contact, white board updated. CRM following CRM will get updates at 10 AM from [facility] Comment on above: Result Comment: Elec tronically Signed By: Deepa Smith\.br\Date and Time Signed: 09/02/24 11:01 EDT Interdisciplinary Note - Hearing Officer Interdisciplinary Note - Hearing Officer CRM to room 305 Patient is awake, alert and oriented. Patient is from home. Patient Grand son is present and is his ride at [place]. Patient DME, insurance and PCP verified by previous CRM. He sees Dr Tai. Patient is an inpatient, IMM was done on 09/01. Patient came in with upper GIB. Patient is assigned to [employer], see notes. Patient on 09/01 had EGD. Patient Hgb is more stable today. He did get one unit of PRBC. Per Patient he is a DC today. Patient declines any safety concerns to return home. Patient declined need for DME, HH or Paramed. Patient was provided CRM contact, white board updated. CRM following CRM will get updates at 10 AM from [facility] Comment on above: Result Comment: Elec tronically Signed By: Deepa Smith\.br\Date and Time Signed: 09/02/24 09:06 EDT Ironon 09-02-2024 Iron [Mass/Vol] 21 microgram/dL Low 35-153 [facility] Comment on above: Performed By: #### 2 [id number] #### [facility] [address] [place] [address] LDHon 09-02-2024 LDH 135 Int._Unit/L Normal 93-218 [facility] Comment on above: Performed By: #### 2 [id number] #### [facility] [address] [place] [address] Main OR Intraoperative Recor don 09-02-2024 Main OR Intraoperative Record Main OR Intraoperative Record IntraOp Document Type FT Summary Primary Physician: Cindy KABA, Jazmin Colby Finalized Date/Time: 09/02/24 10:49:23 Pt. Name: RADHA CABELLO Anny Escalante/Sex: 1940 Male Med Rec #: [id number] Physician: Nicole Ojeda MD Financial #: [id number] Pt. Type: I Room/Bed: [facility] Admit/Disch: 08/31/24 17:40:13 - Institution: Case Times FT Entry 1 Patient Times In Room 09/01/24 11:48:00 Out Room 09/01/24 11:57:00 Procedure Times Start 09/01/24 11:52:00 Stop 09/01/24 11:55:00 Anesthesia Times Start 09/01/24 11:48:00 Stop 09/01/24 11:57:00 Last Modified By: Angeles Fernandez RN 09/01/24 11:58:11 Case Attendance FT Entry 1 Entry 2 Entry 3 Case Attendee Miles Bell MD, Jazmin Fernandez RN, Angeles Colby Role Performed Anesthesiologist Surgeon - Primary Undercutter Operator - Primary International Affairs Vice President Time In 09/01/24 11:48:00 09/01/24 11:48:00 09/01/24 11:48:00 Time Out 09/01/24 11:58:00 09/01/24 11:58:00 09/01/24 11:58:00 Procedure EGD(.) EGD(.) EGD(.) Comments Dr. Gentile is supervising Last Modified By: Angeles Fernandez RN, RN, Angeles Rowland RN 09/01/24 11:58:06 09/01/24 11:58:06 09/01/24 11:58:06 Entry 4 Case Attendee Edilson Barron Role Performed Scrub - Primary Time In 09/01/24 11:48:00 Time Out 09/01/24 11:58:00 Procedure EGD(.) Comments Last Modified By: Angeles Fernandez RN 09/01/24 11:58:06 Perioperative Protocols FT Pre-Care Text: Implements protective measures prior to operative or invasive procedure, confirms identity before the operative or invasive procedure, verifies operative procedure, surgical site, and laterality Entry 1 Procedure(s) EGD(.) Patient Identity Birthday, ID Band Verified (select at Check, Patient least 2): Participation Consents / H and P Anesthesia Consent, Operative Site N/A Verified H&P, Surgery/Procedure Marking Verified Consent Surgical Site No Laterality Verified n/a Verified Procedure Verified Yes Correct Patient Yes Position Verified Availability Equipment, Medication Prep Dry n/a Verified (If Applicable) PreOp Antibiotic No Time Out Miles Bell, Given Participants Jazmin White MD, Sherman RN, Kristin N, Sparks, Micala E Time Out Complete 09/01/24 11:50:00 Outcomes Met? Yes Last Modified By: Angeles Fernandez RN 09/01/24 11:50:32 Post-Care Text: The patient is free from signs and symptoms of injury caused by extraneous objects Allergy Information FT Pre-Care Text: Verifies allergies Entry 1 Allergies Reviewed? Yes Allergies Reviewed Self/Patient With Outcomes Met? Yes Last Modified By: Angeles Fernandez RN 09/01/24 11:50:39 Post-Care Text: The patient received appropriate medication(s) safely administered during the perioperative period Surgical Procedures FT Entry 1 Procedure Description Procedure EGD Modifiers . Surgeon Description EGD Primary Procedure Yes Primary Surgeon Jazmin White MD Start 09/01/24 11:52:00 Stop 09/01/24 11:55:00 Anesthesia Type General Surgical Service Gastroenterology Wound Class 2 - Clean-Contaminated Last Modified By: Angeles Fernandez RN 09/01/24 11:55:46 General Case Data FT Pre-Care Text: Classifies surgical wound, implements aseptic technique, initiates traffic control Entry 1 Case Information OR ENDO 1 FT Case Level Level 2 Wound Class 2 - Clean-Contaminated Specialty Gastroenterology ASA Class 3 Preop Diagnosis Upper GI bleed Postop Same As Preop No Postop Diagnosis Clean based ulcers in Outcomes Met? 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 Yes Last Modified By: Angeles Fernandez RN 09/01/24 11:51:20 Post-Care Text: The patient is free from signs and symptoms of injury caused by extraneous objects Patient Positioning FT Pre-Care Text: Identifies physical alterations that require additional precautions for procedure-specific positioning, verifies presence of prosthetics or corrective devices, positions the patient, evaluates the patient for signs and symptoms of injury as a result of positioning Entry 1 Procedure EGD(.) Body Position Lateral, right side up Feet Uncrossed? Yes Left Arm Position Resting at Side Right Arm Position Resting at Side Left Leg Position Extended Right Leg Position Extended Positioning Device Safety Strap, Pillow Und (more content not included)... Normal [facility] Retic Counton 09-02-2024 Reticulocytes/100 RBC (Bld) 5.8 % High 0.5-2.2 [facility] Comment on above: Result Comment: Reti culocyte count has been corrected for anemia Performed By: #### 2 [id number] #### [facility] [address] [place] [address] TIBC Calculatedon 09-02-2024 Iron binding capacity [Mass/Vol] 395 microgram/dL Normal 250-400 [facility] Comment on above: Performed By: #### 1 [id number] #### [facility] [address] [place] [address] Transferrin [Mass/Vol] 282 mg/dL Normal 200-370 [facility] Comment on above: Performed By: #### 1 [id number] #### [facility] [address] [place] [address] TSH With T4fr Reflexon 09-02 TSH Qn 2.11 m[IU]/L Normal 0.34-5.60 [facility] Comment on above: Performed By: #### 1 [id number] #### [facility] [address] [place] [address] Vit B12on 09-02-2024 Cobalamin (Vitamin B12) [Mass/Vol] 524 pg/mL Normal 50-1500 [facility] Comment on above: Performed By: #### 2 [id number] #### [facility] [address] [place] [address] ABO/Rhon 09-01-2024 ABO/Rh Positive Invalid Interpretation Code [facility] Comment on above: Performed By: #### 2 [id number] #### [facility] [address] [place] [address] ABO/Rh History Checkon 09-01 ABO/Rh History Check Type verified by second s Normal [facility] Comment on above: Performed By: #### 1 [id number] #### [facility] [address] [place] [address] ABO/Rh Retypeon 09-01-2024 ABO/Rh Retype Interp Positive Invalid Interpretation Code [facility] Comment on above: Performed By: #### 1 [id number] #### [facility] [address] [place] [address] ABSCon 09-01-2024 ABSC Gel Interp Negative Normal [facility] Comment on above: Performed By: #### 1 [id number] #### [facility] [address] [place] [address] Albuminon 09-01-2024 Albumin [Mass/Vol] 3.4 g/dL Normal 3.3-5.0 [facility] Comment on above: Performed By: #### 2 [id number] #### [facility] [address] [place] [address] BLOOD BANKOrdered By: Jose A Johnson on 09-01-2024 ABO/Rh Interp Positive Invalid Interpretation Code [facility] BB Subsection ABSC Gel Interp Negative (09/01/24 6:32 AM) Normal [facility] BB Subsection ABO/Rh Retype Interp Positive Invalid Interpretation Code [facility] BB Subsection BMPon 09-01-2024 Anion gap [Moles/Vol] 9 mmol/L Normal 6-16 [facility] Comment on above: Performed By: #### 2 [id number] #### [facility] [address] [place] [address] Calcium [Mass/Vol] 7.8 mg/dL Low 8.9-11.1 [facility] Comment on above: Performed By: #### 2 [id number] #### [facility] [address] [place] [address] Chloride [Moles/Vol] 111 mmol/L Normal 101-111 [facility] Comment on above: Performed By: #### 2 [id number] #### [facility] [address] [place] [address] CO2 [Moles/Vol] 22 mmol/L Normal 21-31 [facility] Comment on above: Performed By: #### 2 [id number] #### [facility] [address] [place] [address] Creatinine [Mass/Vol] 0.8 mg/dL Normal 0.5-1.3 [facility] Comment on above: Performed By: #### 2 [id number] #### [facility] [address] [place] [address] Glucose [Mass/Vol] 76 mg/dL Normal 55-199 [facility] Comment on above: Performed By: #### 2 [id number] #### [facility] [address] [place] [address] Potassium [Moles/Vol] 4.0 mmol/L Normal 3.5-5.3 [facility] Comment on above: Performed By: #### 2 [id number] #### [facility] [address] [place] [address] Sodium [Moles/Vol] 138 mmol/L Normal 135-145 [facility] Comment on above: Performed By: #### 2 [id number] #### [facility] [address] [place] [address] Urea nitrogen [Mass/Vol] 21 mg/dL Normal 5-21 [facility] Comment on above: Performed By: #### 2 [id number] #### [facility] [address] [place] [address] Urea nitrogen/Creatinine [Mass ratio] 26 No Units High 10-20 [facility] Comment on above: Performed By: #### 2 [id number] #### [facility] [address] [place] [address] Blood Bank ID#on 09-01-2024 BBID# [id number] Invalid Interpretation Code [facility] Comment on above: Performed By: #### 1 [id number] #### [facility] [address] [place] [address] CBC w/ Auto Diffon Anisocytosis Ql (Bld) PRESENT Invalid Interpretation Code [facility] Comment on above: Performed By: #### 2 [id number] #### [facility] [address] [place] [address] Basophils/100 WBC (Bld) 0.6 % Normal 0.0-2.0 [facility] Comment on above: Performed By: #### 2 [id number] #### [facility] [address] [place] [address] Basophils/Leukocytes Auto (Bld) [Pure # fraction] 0.0 E9/L Normal 0.0-0.2 [facility] Comment on above: Performed By: #### 2 [id number] #### [facility] [address] [place] [address] Eosinophils (Bld) [#/Vol] 0.1 E9/L Normal 0.0-0.5 [facility] Comment on above: Performed By: #### 2 [id number] #### [facility] [address] [place] [address] Eosinophils/100 WBC (Bld) 0.8 % Normal 0.0-8.0 [facility] Comment on above: Performed By: #### 2 [id number] #### [facility] [address] [place] [address] Erythrocyte distribution width (RBC) [Ratio] 16.7 % High 10.9-14.2 [facility] Comment on above: Performed By: #### 2 [id number] #### [facility] [address] [place] [address] Hematocrit (Bld) [Volume fraction] 19.9 % Low 37.7-49.0 [facility] Comment on above: Performed By: #### 2 [id number] #### [facility] [address] [place] [address] Hemoglobin (Bld) [Mass/Vol] 6.7 g/dL Abnormal 13.5-17.5 [facility] Comment on above: Result Comment: Resu lts called to CLEMENTE SAEZ by [id number] and read back on 09/01/2024 05:46:07. Critical Result Verified by Repeat Analysis Performed By: #### 2 [id number] #### [facility] [address] [place] [address] Hypochromia Auto Ql (Bld) PRESENT Invalid Interpretation Code [facility] Comment on above: Performed By: #### 2 [id number] #### [facility] [address] [place] [address] Lymphocytes (Bld) [#/Vol] 1.4 E9/L Normal 1.0-4.0 [facility] Comment on above: Performed By: #### 2 [id number] #### [facility] [address] [place] [address] Lymphocytes/100 WBC (Bld) 19.3 % Normal 14.0-50.0 [facility] Comment on above: Performed By: #### 2 [id number] #### [facility] [address] [place] [address] MCH (RBC) [Entitic mass] 29.0 pg Normal 27.0-34.0 [facility] Comment on above: Performed By: #### 2 [id number] #### [facility] [address] [place] [address] MCHC (RBC) [Mass/Vol] 33.8 g/dL Normal 31.4-36.0 [facility] Comment on above: Performed By: #### 2 [id number] #### [facility] [address] [place] [address] MCV (RBC) [Entitic vol] 85.6 fL Normal 80.0-100.0 [facility] Comment on above: Performed By: #### 2 [id number] #### [facility] [address] [place] [address] Microcytes Ql (Bld) PRESENT Invalid Interpretation Code [facility] Comment on above: Performed By: #### 2 [id number] #### [facility] [address] [place] [address] Monocytes (Bld) [#/Vol] 0.6 E9/L Normal 0.2-1.0 [facility] Comment on above: Performed By: #### 2 [id number] #### [facility] [address] [place] [address] Neutrophils (Bld) [#/Vol] 5.2 E9/L Normal 2.0-7.5 [facility] Comment on above: Performed By: #### 2 [id number] #### [facility] [address] [place] [address] Neutrophils/100 WBC (Bld) 70.7 % Normal 36.0-75.0 [facility] Comment on above: Performed By: #### 2 [id number] #### [facility] [address] [place] [address] Platelet mean volume (Bld) [Entitic vol] 8.0 fL Normal 6.4-10.8 [facility] Comment on above: Performed By: #### 2 [id number] #### [facility] [address] [place] [address] Platelets (Bld) [#/Vol] 189.0 E9/L Normal 150.0-500.0 [facility] Comment on above: Performed By: #### 2 [id number] #### [facility] [address] [place] [address] Polychromasia LM Ql (Bld) PRESENT Invalid Interpretation Code [facility] Comment on above: Performed By: #### 2 [id number] #### [facility] [address] [place] [address] RBC (Bld) [#/Vol] 2.3 E12/L Low 4.3-5.9 [facility] Comment on above: Performed By: #### 2 [id number] #### [facility] [address] [place] [address] RBC size Nom (Bld) SEE MORPHOLOGY Invalid Interpretation Code [facility] Comment on above: Performed By: #### 2 [id number] #### [facility] [address] [place] [address] WBC corrected for nucl RBC Auto (Bld) [#/Vol] 7.3 E9/L Normal 4.0-11.0 [facility] Comment on above: Performed By: #### 2 [id number] #### [facility] [address] [place] [address] CHEMISTRYOrdered By: SYSTEM SYSTEM on 09-01-2024 Albumin [Mass/Vol] 3.4 g/dL Normal 3.3 - 5.0 gm/dL Remisol Chem Anion gap [Moles/Vol] 9 mmol/L Normal 6 - 16 mEq/L R emisol Chem Calcium [Mass/Vol] 7.8 mg/dL Low 8.9 - 11. 1 mg/dL Remisol Chem Chloride [Moles/Vol] 111 mmol/L Normal 101 - 1 11 mmol/L Remisol Chem CO2 [Moles/Vol] 22 mmol/L Normal 21 - 31 mmol/L Remisol Chem Creatinine [Mass/Vol] 0.8 mg/dL Normal 0.5 - 1.3 mg/dL Remisol Chem eGFR 88 mL/min/1.73 m2 Normal >=59mL/min /1 .73 m2 Remisol Chem Glucose [Mass/Vol] 76 mg/dL Normal 55 - 199 mg/dL Remisol Chem Potassium [Moles/Vol] 4.0 mmol/L Normal 3.5 - 5.3 mmol/L Remisol Chem Sodium [Moles/Vol] 138 mmol/L Normal 135 - 145 mmol/L Remisol Chem Urea nitrogen [Mass/Vol] 21 mg/dL Normal 5 - 21 mg/dL Remisol Chem Urea nitrogen/Creatinine [Mass ratio] 26 mg/mg High 10 - 20 Remisol Chem HEMATOLOGYOrdered By: SYSTEM SYSTEM on 09-01-2024 Hematocrit (Bld) [Volume fraction] 24.1 % Low 37.7 - 49.0 % Remisol Heme Hemoglobin (Bld) [Mass/Vol] 8.3 g/dL Low 13.5 - 17.5 gm/dL Remisol Heme Anisocytosis Ql (Bld) PRESENT *NA* (09/01/24 5:23 AM) Invalid Interpretation Code Remisol Heme Basophils/100 WBC (Bld) 0.6 % Normal 0.0 - 2.0 % Remisol Heme Basophils/Leukocytes Auto (Bld) [Pure # fraction] 0.0 E9/L Normal 0.0 - 0.2 E9/L Remisol Heme Eosinophils (Bld) [#/Vol] 0.1 E9/L Normal 0.0 - 0.5 E9/L Remisol Heme Eosinophils/100 WBC (Bld) 0.8 % Normal 0.0 - 8.0 % Remisol Heme Erythrocyte distribution width (RBC) [Ratio] 16.7 % High 10.9 - 14.2 % Remisol Heme Hypochromia Auto Ql (Bld) PRESENT *NA* (09/01/24 5:23 AM) Invalid Interpretation Code Remisol Heme Lymphocytes (Bld) [#/Vol] 1.4 E9/L Normal 1.0 - 4.0 E9/L Remisol Heme Lymphocytes/100 WBC (Bld) 19.3 % Normal 14.0 - 50.0 % Remisol Heme MCH (RBC) [Entitic mass] 29.0 pg Normal 27.0 - 34.0 pg Remisol Heme MCHC (RBC) [Mass/Vol] 33.8 g/dL Normal 31.4 - 36.0 gm/dL Remisol Heme MCV (RBC) [Entitic vol] 85.6 fL Normal 80.0 - 100.0 fL Remisol Heme Microcytes Ql (Bld) PRESENT *NA* (09/01/24 5:23 AM) Invalid Interpretation Code Remisol Heme Monocytes (Bld) [#/Vol] 0.6 E9/L Normal 0.2 - 1.0 E9/L Remisol Heme Monocytes/100 WBC (Bld) 8.6 % Normal 4.0 - 14.0 % Remisol Heme Neutrophils (Bld) [#/Vol] 5.2 E9/L Normal 2.0 - 7.5 E9/L Remisol Heme Neutrophils/100 WBC (Bld) 70.7 % Normal 36.0 - 75.0 % Remisol Heme Platelet mean volume (Bld) [Entitic vol] 8.0 fL Normal 6.4 - 10.8 fL Remisol Heme Platelets (Bld) [#/Vol] 189.0 E9/L Normal 150.0 - 500.0 E9/L Remisol Heme Polychromasia LM Ql (Bld) PRESENT *NA* (09/01/24 5:23 AM) Invalid Interpretation Code Remisol Heme RBC (Bld) [#/Vol] 2.3 E12/L Low 4.3 - 5.9 E12/L Remisol Heme RBC size Nom (Bld) SEE MORPHOLOGY *NA* (09/01/24 5:23 AM) Invalid Interpretation Code Remisol Heme WBC corrected for nucl RBC Auto (Bld) [#/Vol] 7.3 E9/L Normal 4.0 - 11.0 E9/L Remisol Heme Hct & Hgbon 09-01-2024 Hematocrit (Bld) [Volume fraction] 24.1 % Low 37.7-49.0 [facility] Comment on above: Performed By: #### 1 [id number] #### [facility] [address] [place] [address] Hemoglobin (Bld) [Mass/Vol] 8.3 g/dL Low 13.5-17.5 [facility] Comment on above: Performed By: #### 1 [id number] #### [facility] [address] [place] [address] Hematocrit (Bld) [Volume fraction] 26.5 % Low 37.7-49.0 [facility] Comment on above: Performed By: #### 1 [id number] #### [facility] [address] [place] [address] Hemoglobin (Bld) [Mass/Vol] 9.1 g/dL Low 13.5-17.5 [facility] Comment on above: Performed By: #### 1 [id number] #### [facility] [address] [place] [address] Hematocrit (Bld) [Volume fraction] 27.7 % Low 37.7-49.0 [facility] Comment on above: Order Comment: per R N draw patient at 1115 Performed By: #### 1 [id number] #### [facility] [address] [place] [address] Hemoglobin (Bld) [Mass/Vol] 9.4 g/dL Low 13.5-17.5 [facility] Comment on above: Order Comment: per R N draw patient at 1115 Performed By: #### 1 [id number] #### [facility] [address] [place] [address] Inpatient Clinical Summaryon 09-01-2024 Inpatient Clinical Summary Inpatient Clinical Summary [address] [address] Clinical Summary Person Information: Name: RADHA CABELLO Age: 83 Years : 1940 Sex: Male PCP: SCOTT TAI MD Marital Status: Phone: [phone] Race: White Ethnicity: Non- or Language: Slovenian Visit Id: Visit Reason: upper gi bleed Speciality: Acuity: Enc Type: Inpatient Med Service: Medical Arrival: 08/31/2024 17:40:13 Discharge: Dispo Type: Address: [address] [place] [id number] Provider Notes: Diagnosis: 3:HTN (hypertension), benign; 4:CAD (coronary artery disease); 5:Dyslipidemia; 6:Hx of CABG Problems No Problems Documented Smoking Status: Never Smoker Functional Status: Sensory Deficits: Hearing deficit, left ear, Hearing deficit, right ear, Other: glasses History of Falls: Mobility Assistance Prior to Admission: ADLs: Minimal assistance Current Level of Assistance for Self-Care/Mobility: Cognitive Status: Allergies No Known Allergies Measurements: Height: 162.56 cm Weight: 66.6 kg Blood Pressure: 160 mmHg / 66 mmHg BMI: 25.2 kg/m2 Procedures No Procedures Documented Immunizations No Immunizations Documented This Visit Final Med List: aspirin 81 Milligram By Mouth every day. atorvastatin (atorvastatin 40 mg Tab) 2 Tablets. TAKE 1 TABLET BY MOUTH EVERYDAY AT BEDTIME. carvedilol (carvedilol 6.25 mg Tab) 1 Tablets 2 times a day. TAKE 1 TABLET BY MOUTH EVERY MORNING AND EVENING WITH MEALS. clopidogrel (clopidogrel 75 mg Tab) 1 Tablets. TAKE 1 TABLET BY MOUTH EVERY DAY. isosorbide mononitrate (isosorbide mononitrate 30 mg ER Tab) TAKE 1 TABLET BY MOUTH EVERY DAY. lisinopril (lisinopril 20 mg Tab) 1 Tablets By Mouth every day. TAKE 1 TABLET BY MOUTH EVERY DAY. magnesium oxide (magnesium oxide 400 mg Tab) 2 Tablets By Mouth. Care Team Members: Attending Physician: Nicole Ojeda MD Consulting Physician: Candi Clark MD Referring Physician: Follow up: Patient Education Information: Normal [facility] Inpatient Patient Summaryon 09-01-2024 Inpatient Patient Summary Inpatient Patient Summary [address] [address] Patient Discharge Instructions PERSON INFORMATION Name: PAULINO RADHA Mccormick Date of : 1940 Current Date: 09/01/2024 08:57:41 PHYSICIANS Admitting Physician: Nicole Ojeda MD Primary Care Physician: SCOTT TAI MD PCP Comment: Discharge Diagnosis: 3:HTN (hypertension), benign; 4:CAD (coronary artery disease); 5:Dyslipidemia; 6:Hx of CABG Condition at Discharge: RADHA CABELLO has been given the following list of follow-up instructions, prescriptions, and patient education materials: PATIENT FOLLOW-UP INFORMATION Diet: Discharge Activity: Discharge Restrictions: Wound Care Instructions: Remove Your Dressing In Days Call Your Doctor For: IF UNABLE TO CONTACT YOUR PHYSICIAN AND YOU FEEL IT IS AN EMERGENCY, GO TO THE NEAREST EMERGENCY ROOM OR CALL 911 Home Treatment: Devices/Equipment: None Special Services: Additional Instructions: Primary Care Physician to provide the following pending test results: Follow up: In the event that this physician does not participate in your insurance network, please consult with your insurance company to find a nearby participating provider. Comment: PAULINO Cordoba GEROLD E, have received the attached patient education materials/instructions and have verbalized understanding: Patient Signature Date Clinican/Nurse Signature ___ Date HERE ARE THE MEDICATION CHANGES THAT OCCURRED DURING YOUR HOSPITAL STAY Medications to Continue with No Changes Other Medications aspirin 81 Milligram By Mouth every day. Last Dose: ___Next Dose: ___ atorvastatin (atorvastatin 40 mg Tab) 2 Tablets. TAKE 1 TABLET BY MOUTH EVERYDAY AT BEDTIME. Last Dose: ___Next Dose: ___ carvedilol (carvedilol 6.25 mg Tab) 1 Tablets 2 times a day. TAKE 1 TABLET BY MOUTH EVERY MORNING AND EVENING WITH MEALS. Last Dose: ___Next Dose: ___ clopidogrel (clopidogrel 75 mg Tab) 1 Tablets. TAKE 1 TABLET BY MOUTH EVERY DAY. Last Dose: ___Next Dose: ___ isosorbide mononitrate (isosorbide mononitrate 30 mg ER Tab) TAKE 1 TABLET BY MOUTH EVERY DAY. Last Dose: ___Next Dose: ___ lisinopril (lisinopril 20 mg Tab) 1 Tablets By Mouth every day. TAKE 1 TABLET BY MOUTH EVERY DAY. Last Dose: ___Next Dose: ___ magnesium oxide (magnesium oxide 400 mg Tab) 2 Tablets By Mouth., patient takes 840 mg by mouth daily Last Dose: ___Next Dose: ___ Comment: MEDICATION LIST PROVIDED FOR YOU IS A LIST OF YOUR CURRENT MEDICATIONS. PLEASE CARRY THIS WITH YOU AT ALL TIMES. aspirin 81 Milligram By Mouth every day. atorvastatin (atorvastatin 40 mg Tab) 2 Tablets. TAKE 1 TABLET BY MOUTH EVERYDAY AT BEDTIME. carvedilol (carvedilol 6.25 mg Tab) 1 Tablets 2 times a day. TAKE 1 TABLET BY MOUTH EVERY MORNING AND EVENING WITH MEALS. clopidogrel (clopidogrel 75 mg Tab) 1 Tablets. TAKE 1 TABLET BY MOUTH EVERY DAY. isosorbide mononitrate (isosorbide mononitrate 30 mg ER Tab) TAKE 1 TABLET BY MOUTH EVERY DAY. lisinopril (lisinopril 20 mg Tab) 1 Tablets By Mouth every day. TAKE 1 TABLET BY MOUTH EVERY DAY. magnesium oxide (magnesium oxide 400 mg Tab) 2 Tablets By Mouth. Pharmacy Information: Comment: PATIENT EDUCATION INFORMATION Instructions: Medication Leaflets: You may receive a survey from [email or web address] asking you to rate your care experience. Your feedback is important and will help us understand what we do well and how we can improve the quality of care we provide to you, your loved ones and our community. It???s an honor to serve you. Thank you for choosing [facility] Normal [facility] Interdisciplinary Note - Dennis e Manageron 09-01-2024 Interdisciplinary Note - Hearing Officer Interdisciplinary Note - Hearing Officer Patient awake and alert in bed with Maria De Jesus Wayne at bedside. Patient previously rounded with [employer], see notes. Patient participated in dc planning. Patient reports PCP is Scott Palomo, admitting updated. DME and insurance verified. IMM reviewed and signed. SS consult for adv directives, patient reports he has adv directives already completed. Advised patient to provided copy to hospital and PCP, voiced understanding. Patient lives alone and is independent with all IADL's and ADL's and drives. Maria De Jesus will transport patient at dc. Denies any dc needs or concerns. CRM following Normal [facility] Comment on above: Result Comment: Elec tronically Signed By: Mey Summers\.br\Date and Time Signed: 09/01/24 09:03 EDT MICRO OTHER TESTSOrdered By: Eunice Cervantes on 09-01-2024 Occult blood panel (Stl) Positive *ABN* (09/01/24 3:53 PM) Invalid Interpretation Code Negative [facility] Main OR Intraoperative Recor don 09-01-2024 Main OR Intraoperative Record Main OR Intraoperative Record IntraOp Document Type FT Summary Primary Physician: Jazmin White MD Finalized Date/Time: 09/01/24 11:58:15 Pt. Name: RADHA CABELLO D.O.B./Sex: 1940 Male Med Rec #: [id number] Physician: Nicole Ojeda MD Financial #: [id number] Pt. Type: I Room/Bed: [facility] Admit/Disch: 08/31/24 17:40:13 - Institution: Case Times FT Entry 1 Patient Times In Room 09/01/24 11:48:00 Out Room 09/01/24 11:57:00 Procedure Times Start 09/01/24 11:52:00 Stop 09/01/24 11:55:00 Anesthesia Times Start 09/01/24 11:48:00 Stop 09/01/24 11:57:00 Last Modified By: Angeles Fernandez RN 09/01/24 11:58:11 Case Attendance FT Entry 1 Entry 2 Entry 3 Case Attendee Miles Bell MD, Jazmin Fernandez RN, Angeles Colby Role Performed Anesthesiologist Surgeon - Primary Undercutter Operator - Primary International Affairs Vice President Time In 09/01/24 11:48:00 09/01/24 11:48:00 09/01/24 11:48:00 Time Out 09/01/24 11:58:00 09/01/24 11:58:00 09/01/24 11:58:00 Procedure EGD(.) EGD(.) EGD(.) Comments Dr. Gentile is supervising Last Modified By: Angeles Fernandez RN, RN, Angeles Rowland RN 09/01/24 11:58:06 09/01/24 11:58:06 09/01/24 11:58:06 Entry 4 Case Attendee Edilson Barron Role Performed Scrub - Primary Time In 09/01/24 11:48:00 Time Out 09/01/24 11:58:00 Procedure EGD(.) Comments Last Modified By: Angeles Fernandez RN 09/01/24 11:58:06 Perioperative Protocols FT Pre-Care Text: Implements protective measures prior to operative or invasive procedure, confirms identity before the operative or invasive procedure, verifies operative procedure, surgical site, and laterality Entry 1 Procedure(s) EGD(.) Patient Identity Birthday, ID Band Verified (select at Check, Patient least 2): Participation Consents / H and P Anesthesia Consent, Operative Site N/A Verified H&P, Surgery/Procedure Marking Verified Consent Surgical Site No Laterality Verified n/a Verified Procedure Verified Yes Correct Patient Yes Position Verified Availability Equipment, Medication Prep Dry n/a Verified (If Applicable) PreOp Antibiotic No Time Out Miles Bell, Given Participants Cindy KABA, Jazmin Colby, Jim TONG, Anderson Caballero Micala E Time Out Complete 09/01/24 11:50:00 Outcomes Met? Yes Last Modified By: Angeles Fernandez RN 09/01/24 11:50:32 Post-Care Text: The patient is free from signs and symptoms of injury caused by extraneous objects Allergy Information FT Pre-Care Text: Verifies allergies Entry 1 Allergies Reviewed? Yes Allergies Reviewed Self/Patient With Outcomes Met? Yes Last Modified By: Angeles Fernandez RN 09/01/24 11:50:39 Post-Care Text: The patient received appropriate medication(s) safely administered during the perioperative period Surgical Procedures FT Entry 1 Procedure Description Procedure EGD Modifiers . Surgeon Description EGD Primary Procedure Yes Primary Surgeon Jazmin White MD Start 09/01/24 11:52:00 Stop 09/01/24 11:55:00 Anesthesia Type General Surgical Service Gastroenterology Wound Class 2 - Clean-Contaminated Last Modified By: Angeles Fernandez RN 09/01/24 11:55:46 General Case Data FT Pre-Care Text: Classifies surgical wound, implements aseptic technique, initiates traffic control Entry 1 Case Information OR ENDO 1 FT Case Level Level 2 Wound Class 2 - Clean-Contaminated Specialty Gastroenterology ASA Class 3 Preop Diagnosis Upper GI bleed Postop Same As Preop No Postop Diagnosis Clean based ulcers in Outcomes Met? 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 Yes Last Modified By: Angeles Fernandez RN 09/01/24 11:51:20 Post-Care Text: The patient is free from signs and symptoms of injury caused by extraneous objects Patient Positioning FT Pre-Care Text: Identifies physical alterations that require additional precautions for procedure-specific positioning, verifies presence of prosthetics or corrective devices, positions the patient, evaluates the patient for signs and symptoms of injury as a result of positioning Entry 1 Procedure EGD(.) Body Position Lateral, right side up Feet Uncrossed? Yes Left Arm Position Resting at Side Right Arm Position Resting at Side Left Leg Position Extended Right Leg Position Extended Positioning Device Safety Strap, Pillow Und (more content not included)... Normal [facility] Main OR PACU II Recordon Main OR PACU II Record Main OR PACU II Record PACU Phase II Document Type FT Summary Primary Physician: Jazmin White MD Finalized Date/Time: 09/01/24 13:45:16 Pt. Name: RADHA CABELLO/Sex: 1940 Male Med Rec #: [id number] Physician: Nicole Ojeda MD Financial #: [id number] Pt. Type: I Room/Bed: [place] [address] Admit/Disch: 08/31/24 17:40:13 - Institution: Case Times PACU II FT Pre-Care Text: Identifies barriers to communication and implements measures to provide psychological support and determines knowledge level Develops individualized plan of care, and ensures continuity of care Maintains patient's dignity and privacy, and maintains patient confidentiality Identifies and reports philosophical, cultural, and spiritual beliefs and values Identifies individual values and wishes concerning care administers prescribed antibiotic therapy and immunizing agents as ordered, Evaluates postoperative tissue perfusion Implements thermoregulation measures, and monitors body temperature Evaluates postoperative respiratory status Evaluates postoperative cardiac status Evaluates postoperative neurological status Assesses pain control, collaborated in initiating patient-controlled analgesia and implements alternative methods of pain control Verifies allergies, administers prescribed medications and solutions, evaluates response to medications Entry 1 In PACU II 09/01/24 11:59:00 Discharge from PACU 09/01/24 12:25:00 II Outcomes Met? Yes Last Modified By: Peggy Perry RN 09/01/24 13:45:12 Post-Care Text: The patient demonstrates knowledge of the expected response to the operative or invasive procedure The patient's care is consistent with the individualized perioperative plan of care The patient's right to privacy is maintained The patient's value system, lifestyle, ethnicity, and culture are considered, respected, and incorporated into the perioperative plan of care The patient participates in decisions affecting his or her perioperative plan of care. The patient is free from signs and symptoms of infection The patient has wound/tissue perfusion consistent with or improved from baseline levels established preoperatively The patient is at or returning to normothermia at the conclusion of the immediate postoperative period The patient's respiratory function is consistent with or improved from baseline levels established preoperatively The patient's cardiovascular status is consistent with or improved from baseline levels established preoperatively The patient's neurological status is consistent with or improved from baseline levels established preoperatively The patient demonstrates and/or reports adequate pain control throughout the perioperative period The patient received appropriate medication(s), safely administered during the perioperative period Finalized By: Peggy Perry RN Document Signatures Signed By: Peggy Perry RN 09/01/24 13:45 Normal [facility] Main OR Preoperative Recordo n 09-01-2024 Main OR Preoperative Record Main OR Preoperative Record Holding Area Document Type FT Summary Primary Physician: Jazmin White MD Finalized Date/Time: 09/01/24 11:18:49 Pt. Name: RADHA CABELLO Anny Pulliam./Sex: 1940 Male Med Rec #: [id number] Physician: Nicole Ojeda MD Financial #: [id number] Pt. Type: I Room/Bed: [facility] Admit/Disch: 08/31/24 17:40:13 - Institution: Case Times Holding FT Pre-Care Text: Verifies consent for planned procedure, identifies individual values and wishes concerning care, includes family members in perioperative teaching Secures patient's records' belongings, and valuables, maintains patient's dignity and privacy, and maintains patient confidentiality Entry 1 In Holding 09/01/24 11:11:00 Outcomes Met? Yes Last Modified By: Celia Melvin RN 09/01/24 11:18:08 Post-Care Text: The patient participates in decisions affecting his or her perioperative plan of care The patient's right to privacy is maintained Surgery Checklist FT Entry 1 Patient Birthday, ID Band Procedure History and Physical, Identification: Check, Patient Verification: Surgical Consent, With Participation Patient NPO after Midnight: Yes Results Reviewed n/a Comments: Personal Items: Cataract Lens Implant Personal Items Bilat IOL Comment: Limitations: Vision Complaints of Pain: No Pain Comment: Denies Operative Site n/a Marking: Availability Equipment Verified: Does Patient Smoke No Patient states Yes Comment - Adult Grandson postop adult Supervision supervision available Case Cancelled in No Holding Area see comments below for reason Last Modified By: Celia Melvin RN 09/01/24 11:18:45 Finalized By: Celia Melvin RN Document Signatures Signed By: Celia Melvin RN 09/01/24 11:18 Normal [facility] Patient Education - Texton 0 09-01-2024 Patient Education - Text Patient Education - Text Normal [facility] RCOon 09-01-2024 # of Units 1 Invalid Interpretation Code [facility] Comment on above: Performed By: #### 1 [id number] #### [facility] [address] [place] [address] Date Required [id number] Invalid Interpretation Code [facility] Comment on above: Performed By: #### 1 [id number] #### [facility] [address] [place] [address] Order to Transfuse Yes Normal [facility] Comment on above: Performed By: #### 1 [id number] #### [facility] [address] [place] [address] Product Type None Required Invalid Interpretation Code [facility] Comment on above: Performed By: #### 1 [id number] #### [facility] [address] [place] [address] Stl Oclt Bldon 09-01-2024 Occult blood panel (Stl) Positive Abnormal Negative [facility] Comment on above: Performed By: #### 2 [id number] #### [facility] [address] [place] [address] eGFRon 09-01-2024 eGFR 88 mL/min/1.73 m2 Normal >=59 [facility] Comment on above: Performed By: #### 1 [id number] #### [facility] [address] [place] [address] Hct & Hgbon 08-31-2024 Hematocrit (Bld) [Volume fraction] 22.4 % Low 37.7-49.0 [facility] Comment on above: Performed By: #### 1 [id number] #### [facility] [address] [place] [address] Hemoglobin (Bld) [Mass/Vol] 7.9 g/dL Low 13.5-17.5 [facility] Comment on above: Performed By: #### 1 [id number] #### [facility] [address] [place] [address] 36on 03-31-2024 36 Regarding labs from 03/30/2024: Per Dr. Adkins, please inform patient to STOP hydrochlorothiazide but stay on Farxiga. He needs to have repeat BMP in 3-4 weeks. Thank you. Normal [facility] ALL BASIC METABOLIC PANELon 03-30-2024 Anion gap [Moles/Vol] 13.2 mmol/L [facility] Calcium [Mass/Vol] 9.2 mg/dL 8.5 - 10. 1 mg/dL [facility] Chloride [Moles/Vol] 107 mmol/L 98 - 10 7 mmol/L [facility] CO2 [Moles/Vol] 28.1 mmol/L 21.0 - 32.0 mmol/L [facility] Creatinine [Mass/Vol] 1.43 mg/dL High 0.70 - 1.30 mg/dL [facility] GFR/1.73 sq M.predicted CKD-EPI (S/P/Bld) [Vol rate/Area] 58 Low >=60 mL/min/1.73m 2 [facility] Glucose [Mass/Vol] 89 mg/dL 74 - 106 mg/dL [facility] Interpretation and review of laboratory results Abnormal [facility] Potassium [Moles/Vol] 4.3 mmol/L 3.5 - 5.1 mmol/L [facility] Sodium [Moles/Vol] 144 mmol/L 136 - 145 mmol/L [facility] EGFR-NON AF DOMINICAN 47 Low >=60 mL/min/1.73m 2 [facility] Urea nitrogen [Mass/Vol] 29 mg/dL High 7.0 - 18.0 mg/dL [facility] Urea nitrogen/Creatinine [Mass ratio] 20.3 mg/mg [facility] Healthcare Office Visiton 03-22-2024 Follow-up visit [id number] Radha Cabello 1940 M [facility] Provider Department Center 03/22[facility]2024 [facility] Family History Problem Relation Age of Onset Coronary artery disease Father Hypertension Father Family Status - Relation Status Age at Father Level of Service:93431 [place] OFFICE/OUTPATIENT ESTABLISHED MOD MDM 30 MIN Normal [facility] Office Visiton 10-05-2023 Follow-up visit [id number] Radha Cabello 1940 M Date Provider Department Center 10/05/2023 [facility] Family History Problem Relation Age of Onset Coronary artery disease Father Hypertension Father Family Status - Relation Status Age at Father Level of Service:13564 NC OFFICE/OUTPATIENT ESTABLISHED MOD MDM 30 MIN Normal [facility] ISTAT XRay CREon 09-20-2021 Creatinine [Mass/Vol] 0.9 mg/dL Normal 0.6-1.3 [facility] Comment on above: Result Comment: ER/E SD physician is notified/shown all ISTAT results. Critical values may be confirmed by laboratory testing if deemed necessary by ER attending doctor. Performed By: #### I SCRE #### [address] Point of Care testing , ISTAT GFR ( > 60 Normal [facility] Comment on above: Result Comment: GFR estimated reference range: According to KDOQI guidelines, <60 ml/min/1.73m2 is sufficient to diagnose a patient with chronic kidney disease. PERFORMED BY: [place] [address] PATHOLOGIST CURRICULUM SUPERVISOR CORINNA MCDERMOTT M.D. Performed By: #### I SCRE #### [address] [place] [address] [facility] Point of Care testing , ISTAT GFR (Non- Am > 60 Normal [facility] Comment on above: Performed By: #### I SCRE #### [facility] [address] [id number] [facility] Point of Care testing , MR abdomen wo/w conon 2021 MR abdomen wo/w con [facility] [address] [place] [address] MRI Report Signed Patient: Radha Cabello MR#: [id number] : 1940 Acct:[id number] Age/Sex: 81 / M ADM Date: 09/20/21 Loc: [facility] Room: Type: [facility] Attending Dr: Hasmukh Morelos DO Ordering [...] STABILITY. Impression dictated by: Layton Ayala Jr., DErikaOErika09/20/2021 11:13 AM Dictation Location: [place] [address] Transcribed By: [facility] 09/20/21 1113 Dictated By: Layton Ayala Jr, DO 09/20/21 1057 Signed By: 09/20/21 1113 [facility] CULTURE URINEon 07-28-2021 CULTURE URINE Isolate 1 Enterobacter cloacae 50,000 cfu/ml of ORGANISM 1 Enterobacter cloacae ANTIBIOTIC M.I.C RX STATUS Piperacillin/Tazobacta m <=4 S F Cefazolin >=64 R F Ceftazidime <=1 S F Ceftriaxone <=1 S F Ertapenem <=0.5 S F Imipenem 1 S F Amikacin <=2 S F Gentamicin <=1 S F Tobramycin <=1 S F Ciprofloxacin <=0.25 S F Levofloxacin <=0.12 S F Nitrofurantoin 128 R F Trimethoprim/Sulfameth oxazole <=20 S F Normal [facility] Comment on above: Performed By: #### U RCX ####[facility] [address] [place], [place] [address]. [address] ABD/PELV W CONon 07-28-19 CT ABD/PELV [...] terminal ileum. Imaging findings are suggestive of infectious/inflammator y colitis. The appendix could not be confidently [...] duodenal diverticulum. Bilateral renal cortical cysts. No hydronephrosis/nephrol ithiasis. Right inguinal hernia containing portion of bladder dome in it. Fat-containing left-sided inguinal hernia. Prostatomegaly. Imaging findings are suggestive of infectious/inflammator y enterocolitis. Colonic diverticulosis. Electronically authenticated by: ANDRES GOINS Date: 2021-07-27 12:43 Normal [facility] CBC AUTO DIFFon 07-26-2021 BASO # 0.1 103/ul Normal 0.0-0.1 [facility] Comment on above: Performed By: #### C BC ####[facility] [address] [place] [address]DrErika Pollock Basophils/100 WBC (Bld) 0.5 % Normal 0.2-2.0 [facility] Comment on above: Performed By: #### C BC ####[facility] [address] [place] [id number] Pollock EO # 0.2 103/ul Normal 0.0-0.7 [facility] Comment on above: Performed By: #### C BC ####[facility] [address] [place] [id number] Pollock Eosinophils/100 WBC (Bld) 2.1 % Normal 0.9-7.0 [facility] Comment on above: Performed By: #### C BC ####[facility] [address] [place] [address]Dr. Nelson Pollock Erythrocyte distribution width (RBC) [Ratio] 13.7 % Normal 11.0-15.[address] [facility] Comment on above: Performed By: #### C BC ####[facility] Kj[address] [place], [place] [address]Dr. Nelson Pollock Hematocrit (Bld) [Volume fraction] 42.8 % Normal 42.0-54.0 [facility] Comment on above: Performed By: #### C BC ####[facility] Eyclageay[address] [place], [place] [address]Dr. Nelson Pollock Hemoglobin (Bld) [Mass/Vol] 14.5 g/dL Normal 14.0-18.0 [facility] Comment on above: Performed By: #### C BC ####[facility] [address] [place], [place] [address]Dr. Nelson Pollock IG # 0.04 10e3/ul Critically high 0.00-0.03 [facility] Comment on above: Performed By: #### C BC ####[facility] S[address] [place], [place] [address]Dr. Nelson Pollock IG % 0.4 % Normal 0.0-0.5 [facility] Comment on above: Performed By: #### C BC ####[facility] Yutuk[address]ffp[address] [place], [place] [address]Dr. Nelson Pollock LYMPH # 1.7 103/ul Normal 1.2-3.8 [facility] Comment on above: Performed By: #### C BC ####[facility] Bvt[address]mq[address] [place], [place] [address]Dr. Nelson Pollock Lymphocytes/100 WBC (Bld) 15.6 % Critically low 20.5-60.0 [facility] Comment on above: Performed By: #### C BC ####[facility] Z[address] [place], [place] [id number]. Cloverkusum Pollock MANUAL DIFF REQ NO Normal [facility] Comment on above: Performed By: #### C BC ####[facility] [address] [place] [address]Dr. Nelson Phill MCH (RBC) [Entitic mass] 29.2 pg Normal 25.9-34.0 [facility] Comment on above: Performed By: #### C BC ####[facility] Tguod[address] [place], [place] [address]Dr. Nelson Phill MCHC (RBC) [Mass/Vol] 33.9 g/dL Normal 29.9-35.2 [facility] Comment on above: Performed By: #### C BC ####[facility] [address] [place], [place] [address]Dr. Cloverkusum Pollock MCV (RBC) [Entitic vol] 86.1 fL Normal 80.0-94.0 [facility] Comment on above: Performed By: #### C BC ####[facility] Dtauhywd[address] [place], [place] [address]Dr. Cloverkusum Pollock MONO # 0.8 103/ul Normal 0.3-0.8 [facility] Comment on above: Performed By: #### C BC ####[facility] E[address]xpislyj[address] [place], [place] [address]Dr. Nelson Pollock Monocytes/100 WBC (Bld) 7.3 % Normal 1.7-12.0 [facility] Comment on above: Performed By: #### C BC ####[facility] [address] [place], [place] [address]Dr. Nelson Pollock NEUT # 8.1 103/ul Critically high 1.4-6.5 [facility] Comment on above: Performed By: #### C BC ####[facility] Of[address] [place], [place] [address]Dr. Nelson Pollock Neutrophils/100 WBC (Bld) 74.1 % Normal 43.0-75.0 [facility] Comment on above: Performed By: #### C BC ####[facility] [address] [place], [place] [address]Dr. Nelson Pollock Platelet mean volume (Bld) [Entitic vol] 10.2 fL Normal 9.5-13.[address] [facility] Comment on above: Performed By: #### C BC ####[facility] [address] [place] [address]Dr. Nelson Pollock PLT 191 103/ul Normal 150-450 [facility] Comment on above: Performed By: #### C BC ####[facility] [address] [place] [address]Dr. Nelson Pollock RBC 4.97 106/ul Normal 4.70-6.[address] [facility] Comment on above: Performed By: #### C BC ####[facility] [address] [place] [address]Dr. Nelson Pollock WBC 11.0 103/ul Normal 4.0-11.[address] [facility] Comment on above: Performed By: #### C BC ####[facility] [address] [place] [address]DrErika Pollock ER URINE PROFILEon 2 Bilirubin Ql (U) Negative Normal NEGATIVE [facility] Comment on above: Performed By: #### DAT DIALLORO #### [facility] Laboratory [address] [place] [address] Dr. Nelson Pollock Clarity (U) SL CLOUDY Abnormal CLEAR [facility] Comment on above: Performed By: #### DAT DIALLORO #### [facility] Laboratory [address] [place] [address] [address] Nelson Pollock Color (U) LT. YELLOW Normal YELLOW [facility] Comment on above: Performed By: #### DAT DIALLORO #### [facility] Laboratory [address] [place] [address] Dr. Nelson FELTON A micrscopic examination will be performed if indicated. Normal [facility] Comment on above: Performed By: #### MCKAY DIALLOICRO #### [facility] Laboratory [address] [place] [address] Dr. Nelson Pollock Glucose Ql (U) Negative Normal NEGATIVE [facility] Comment on above: Performed By: #### Anny ZAMORA UMICRO #### [facility] Laboratory [address] [place] [address] Dr. Nelson Pollock Hemoglobin Ql (U) Negative Normal NEGATIVE [facility] Comment on above: Performed By: #### Anny ZAMORA UMICRO #### [facility] Laboratory [address] [place] [address] Dr. Nelson Pollock Ketones Ql (U) Negative Normal NEGATIVE [facility] Comment on above: Performed By: #### Anny ZAMORA UMICRO #### [facility] Laboratory [address] [place] [address] Dr. Nelson Pollock LEUKOCYTES SMALL Abnormal NEGATIVE [facility] Comment on above: Performed By: #### Anny ZAMORA UMICRO #### [facility] Laboratory [address] [place] [address] Dr. Nelson Pollock Nitrite Ql (U) Negative Normal NEGATIVE [facility] Comment on above: Performed By: #### Anny ZAMORA UMICRO #### [facility] Laboratory [address] [place] [address] Dr. Nelson Pollock pH (U) 5.0 [pH] Normal 5-[address] [facility] Comment on above: Performed By: #### Anny ZAMORA UMICRO #### [facility] Laboratory [address] [place] [address] Dr. Nelson Pollock SPEC GRAVITY <=1.005 Abnormal 1.005-<=1.[address] [facility] Comment on above: Performed By: #### Anny ZAMORA UMICRO #### [facility] Laboratory [address] [place] [address] Dr. Nelson Pollock UA PROTEIN Negative Normal NEGATIVE/ TRACE [facility] Comment on above: Performed By: #### Anny ZAMORA UMICRO #### [facility] Laboratory [address] [place] [address] Dr. Nelson Pollock UR MICRO IND INDICATED Normal [facility] Comment on above: Performed By: #### Anny ZAMORA UMICRO #### [facility] Laboratory [address] [place] [address] Dr. Nelson Pollock Urobilinogen Qn (U) 0.2 {Christopher'U}/dL Normal 0.2 - 1. 0 [facility] Comment on above: Performed By: #### E LEISA ZAMORA #### [facility] Laboratory [address] [place] [address] [address] Nelson Pollock LACTATE/LACTIC ACIDon 2021 Lactate [Moles/Vol] 1.2 mmol/L Normal 0.7-2.0 [facility] Comment on above: Performed By: #### L ACT #### [facility] Laboratory [address] [place] [address] [address] Nelson Pollock LIPASEon 07-26-2021 Lipase [Catalytic activity/Vol] 865.0 U/L Critically high 23.0-300.[address] [facility] Comment on above: Performed By: #### L IPA, HSTROPN, CMP ####[facility] [address] [place] [address]DrErika Pollock PROF 14(COMP METB)on 022 Albumin [Mass/Vol] 4.1 g/dL Normal 3.4-5.0 [facility] Comment on above: Performed By: #### L IPA, HSTROPN, CMP ####[facility] [address] [place] [address]DrErika Pollock Albumin/Globulin [Mass ratio] 1.2 {ratio} Normal [facility] Comment on above: Performed By: #### L IPA, HSTROPN, CMP ####[facility] [address] [place] [address]DrErika Pollock ALP [Catalytic activity/Vol] 89 U/L Normal 46-116 [facility] Comment on above: Performed By: #### L IPA, HSTROPN, CMP ####[facility] [address] [place] [address]Dr. Nelson Pollock ALT [Catalytic activity/Vol] 43 U/L Normal 16-63 [facility] Comment on above: Performed By: #### L IPA, HSTROPN, CMP ####[facility] [address] [place] [address]Dr. Nelson Pollock Anion gap [Moles/Vol] 15.5 mmol/L Normal Th e [facility] Comment on above: Performed By: #### L IPA, HSTROPN, CMP ####[facility] [address] [place] [address]Dr. Nelson Pollock AST [Catalytic activity/Vol] 53 U/L Critically high 15-37 [facility] Comment on above: Performed By: #### L IPA, HSTROPN, CMP ####[facility] [address] [place] [address]Dr. Nelson Pollock Bilirubin [Mass/Vol] 2.4 mg/dL Critically high 0.2-1.[address] [facility] Comment on above: Performed By: #### L IPA, HSTROPN, CMP ####[facility] [address] [place] [address]Dr. Nelson Pollock Calcium [Mass/Vol] 8.5 mg/dL Normal 8.5-10.1 [facility] Comment on above: Performed By: #### L IPA, HSTROPN, CMP ####[facility] [address] [place], [place] [address]Dr. Nelson Pollock Chloride [Moles/Vol] 105 mmol/L Normal 98-[address] [facility] Comment on above: Performed By: #### L IPA, HSTROPN, CMP ####[facility] [address] [place] [address]Dr. Nelson Pollock CO2 [Moles/Vol] 22.3 mmol/L Normal 22.0-30.0 [facility] Comment on above: Performed By: #### L IPA, HSTROPN, CMP ####[facility] J[address]hpzfdpe[address] [place], [place] [address]Dr. Nelson Pollock Creatinine [Mass/Vol] 1.06 mg/dL Normal 0.66-1.[address] [facility] Comment on above: Performed By: #### L IPA, HSTROPN, CMP ####[facility] [address] [place] [address]Dr. Nelson Pollock EGFR-AF DOMINICAN >60 Normal >=60 [facility] Comment on above: Performed By: #### L IPA, HSTROPN, CMP ####[facility] [address] [place] [address]Dr. Nelson Pollock EGFR-NON AF DOMINICAN >60 Normal >=60 [facility] Comment on above: Performed By: #### L IPA, HSTROPN, CMP ####[facility] [address] [place] [address]Dr. Nelson Pollock Globulin (S) [Mass/Vol] 3.4 g/dL Normal [facility] Comment on above: Performed By: #### L IPA HSTROPN, CMP ####[facility] [address]hs[address] [place], [place] [address]Dr. Nelson Pollock Glucose [Mass/Vol] 154 mg/dL Critically high 74-106 [facility] Comment on above: Performed By: #### L IPA HSTROPN, CMP ####[facility] Unligcbtlt[address] [place], [place] [address]Dr. Nelson Pollock Potassium [Moles/Vol] 3.8 mmol/L Normal 3.4-5.0 [facility] Comment on above: Performed By: #### L IPA, HSTROPN, CMP ####[facility] [address] [place], [place] [address]Dr. Nelson Pollock Protein [Mass/Vol] 7.5 g/dL Normal 6.1-8.2 [facility] Comment on above: Performed By: #### L IPA, HSTROPN, CMP ####[facility] Mecvxix[address] [place], [place] [address]Dr. Nelson Pollock Sodium [Moles/Vol] 139 mmol/L Normal 137-145 [facility] Comment on above: Performed By: #### L IPA, HSTROPN, CMP ####[facility] [address] [place] [address]Dr. Nelson Pollock Urea nitrogen [Mass/Vol] 25.0 mg/dL Critically high 7.0-18.0 [facility] Comment on above: Performed By: #### L IPA, HSTROPN, CMP ####[facility] [address] [place] [address]Dr. Nelson Pollock Urea nitrogen/Creatinine [Mass ratio] 23.6 mg/mg Normal [facility] Comment on above: Performed By: #### L IPA, HSTROPN, CMP ####[facility] [address] [place] [address]Dr. Nelson Pollock PROTIMEon 07-26-2021 INR Coag (PPP) [Relative time] 1.07 {INR} Normal [facility] Comment on above: Performed By: #### P TT, PT ####[facility] J[address]yibcois[address] [place], [place] [address]Dr. Nelson Pollock INR GUIDELINES SEE BELOW Normal The [facility] Comment on above: Result Comment: ARTEM RED INR: 2.0 - 3.0 CONDITIONS NOT LISTED BELOW 2.5 - 3.5 FOR PROSTHETIC HEART VALVE REPLACEMENT 2.5 - 3.5 RECURRENT THROMBOSIS Performed By: #### P TT, PT ####[facility] Z[address] [place], [place] [address]Dr. Nelson Pollock PT Coag (PPP) [Time] 11.5 s Normal 9.0-11.6 [facility] Comment on above: Performed By: #### P TT, PT ####[facility] [address] [place], [place] [address]Dr. Nelson Pollock PTTon 07-26-2021 aPTT Coag (Bld) [Time] 24.9 s Normal 22.3-36.2 [facility] Comment on above: Performed By: #### P TT, PT ####[facility] [address]jhft[address] [place], [place] [address]Dr. Cloverkusum Pollock TROPONIN, HIGH SENSITIVITYon 07-26-2021 HSTROP 38.6 pg/mL Normal 4.0-42.2 [facility] Comment on above: Result Comment: CUT- OFF POINTS HAVE BEEN ESTABLISHED BASED ON THE FOURTH UNIVERSAL DEFINITIONS OF MYOCARDIAL INFARCTION. THE UPPER REFERENCE LIMIT (URL) OF TROPONIN, DEFINED THE 99TH PERCENTILE OF cTnI DISTRIBUTION IN A REFERENCE POPULATION, HAS BEEN CONFIRMED THE DECISION THRESHOLD FOR PA DIAGNOSIS. Performed By: #### L IPA, HSTROPN, CMP ####[facility] [address] [place] [address]Dr. Nelson Pollock URINE MICROSCOPIC ONLYon BACTERIA MODERATE Abnormal NONE SEEN The [facility] Comment on above: Performed By: #### E RUR, UMICRO #### [facility] Laboratory [address] [address] [address] Nelson Pollock Bacteria identified Cx Nom (U) INDICATED Normal [facility] Comment on above: Performed By: #### E RUR, UMICRO #### [facility] Laboratory [address] [place] [address] Dr. Nelson Pollock CAST NONE SEEN Normal NONE SEEN [facility] Comment on above: Performed By: #### E RUR, UMICRO #### [facility] Laboratory [address] [place] [address] Dr. Nelson Pollock Crystals LM Nom (Urine sed) NONE SEEN Normal NONE SEEN [facility] Comment on above: Performed By: #### E RUR, UMICRO #### [facility] Laboratory [address] [place] [address] Dr. Nelson Pollock Epithelial cells LM Ql (Urine sed) RARE Normal NONE SEEN /RARE The [facility] Comment on above: Performed By: #### E RUR, UMICRO #### [facility] Laboratory [address] [place] [address] Dr. Nelson Pollock MUCOUS NONE SEEN Normal NONE SEEN [facility] Comment on above: Performed By: #### E RUR, UMICRO #### [facility] Laboratory [address] [place] [address] Dr. Nelson Pollock RBC 2-5 Abnormal 0-2 [facility] Comment on above: Performed By: #### E RUR, UMICRO #### [facility] Laboratory [address] [place] [address] Dr. Nelson Pollock WBC (U) [#/Vol] /uL Abnormal NONE SEEN [facility] Comment on above: Performed By: #### E RUR, UMICNICK #### [facility] Laboratory [address] [place], [place] [address] Dr. Nelson Pollock XR CHEST 1 Von [...] PERNELL SARMIENTO Date: 2021-07-26 16:40 Normal [facility] Basic Metabolic Panelon 05-22 Anion gap [Moles/Vol] 16 mmol/L Normal 12-20 [facility] Specialist Comment on above: Result Comment: Effe ctive 04/25/2019 reference range changed. Performed By: #### B MP #### [facility] [address], [place] [id number] Calcium [Mass/Vol] 9.5 mg/dL Normal 8.6-10.2 [facility] Specialist Comment on above: Performed By: #### B MP #### [facility] [address], [place] [id number] Chloride [Moles/Vol] 106 mmol/L Normal 98-107 [facility] Specialist Comment on above: Performed By: #### B MP #### [facility] [address], [place] [id number] CO2 [Moles/Vol] 24 mmol/L Normal 20-31 [facility] Comment on above: Performed By: #### B MP #### [facility] [address], [place] [id number] Creatinine [Mass/Vol] 0.9 mg/dL Normal 0.7-1.4 [facility] Specialist Comment on above: Performed By: #### B MP #### [facility] [address], [place] [id number] eGFRAA 100 mL/min/1.73m2 Normal >60 [facility] Specialist Comment on above: Performed By: #### B MP #### [facility] [address], [place] [id number] eGFRNAA 83 mL/min/1.73m2 Normal >60 [facility] Comment on above: Performed By: #### B MP #### [facility] [address], [place] [id number] Glucose [Mass/Vol] 85 mg/dL Normal 65-99 [facility] Comment on above: Result Comment: For FASTING Glucose --- ADA reference ranges: Normal 65-99 mg/dl Prediabetes 100-125 Diabetes >/= 126 Performed By: #### B MP #### [facility] [address], [place] [id number] Potassium [Moles/Vol] 4.1 mmol/L Normal 3.5-5.5 [facility] Comment on above: Performed By: #### B MP #### [facility] [address], [place] [id number] Sodium [Moles/Vol] 142 mmol/L Normal 135-146 [facility] Comment on above: Performed By: #### B MP #### [facility] [address], [place] [id number] Urea nitrogen [Mass/Vol] 16 mg/dL Normal 7-25 [facility] Comment on above: Performed By: #### B MP #### [facility] [address], [place] [id number] CBC AUTO DIFFon 05-06-2021 BASO # 0.1 103/ul Normal 0.0-0.[address] [facility] Comment on above: Performed By: #### C BC #### [facility] [address] [address] [address] Nelson Pollock Basophils/100 WBC (Bld) 0.8 % Normal 0.2-2.0 [facility] Comment on above: Performed By: #### C BC #### [facility] [address] [address] [address] Nelson Pollock EO # 0.3 103/ul Normal 0.0-0.[address] [facility] Comment on above: Performed By: #### C BC #### [facility] [address] [address] [address] Nelson Pollock Eosinophils/100 WBC (Bld) 2.8 % Normal 0.9-7.[address] [facility] Comment on above: Performed By: #### C BC #### [facility] [address] [place] [address] Dr. Nelson Pollock Erythrocyte distribution width (RBC) [Ratio] 13.2 % Normal 11.0-15.[address] [facility] Comment on above: Performed By: #### C BC #### [facility] [address] [place] [address] Dr. Nelson Pollock Hematocrit (Bld) [Volume fraction] 45.8 % Normal 42.0-54.[address] [facility] Comment on above: Performed By: #### C BC #### [facility] [address] [place] [address] Dr. Nelson Pollock Hemoglobin (Bld) [Mass/Vol] 15.6 g/dL Normal 14.0-18.[address] [facility] Comment on above: Performed By: #### C BC #### [facility] [address] [place] [address] Dr. Nelson Pollock IG # 0.04 10e3/ul Critically high 0.00-0.03 [facility] Comment on above: Performed By: #### C BC #### [facility] [address] [place] [address] Dr. Nelson Pollock IG % 0.4 % Normal 0.0-0.5 [facility] Comment on above: Performed By: #### C BC #### [facility] [address] [place] [address] Dr. Nelson Pollock LYMPH # 3.1 103/ul Normal 1.2-3.8 [facility] Comment on above: Performed By: #### C BC #### [facility] [address] [place] [address] Dr. Nelson Pollock Lymphocytes/100 WBC (Bld) 27.2 % Normal 20.5-60.[address] [facility] Comment on above: Performed By: #### C BC #### [facility] [address] [place] [address] Dr. Nelson Pollock MANUAL DIFF REQ NO Normal [facility] Comment on above: Performed By: #### C BC #### [facility] [address] [place] [address] Dr. Nelson Pollock MCH (RBC) [Entitic mass] 29.1 pg Normal 25.9-34.[address] [facility] Comment on above: Performed By: #### C BC #### [facility] [address] [place] [address] Dr. Nelson Pollock MCHC (RBC) [Mass/Vol] 34.1 g/dL Normal 29.9-35.2 [facility] Comment on above: Performed By: #### C BC #### [facility] [address] [place] [address] Dr. Nelson Pollock MCV (RBC) [Entitic vol] 85.3 fL Normal 80.0-94.[address] [facility] Comment on above: Performed By: #### C BC #### [facility] [address] [place] [address] Dr. Nelson Pollock MONO # 1.0 103/ul Critically high 0.3-0.8 [facility] Comment on above: Performed By: #### C BC #### [facility] [address] [place] [address] Dr. Nelson Pollock Monocytes/100 WBC (Bld) 9.0 % Normal 1.7-12.0 [facility] Comment on above: Performed By: #### C BC #### [facility] [address] [place] [address] Dr. Nelson Pollock NEUT # 6.8 103/ul Critically high 1.4-6.5 [facility] Comment on above: Performed By: #### C BC #### [facility] [address] [place] [address] Dr. Nelson Pollock Neutrophils/100 WBC (Bld) 59.8 % Normal 43.0-75.0 [facility] Comment on above: Performed By: #### C BC #### [facility] [address] [place] [address] Dr. Nelson Pollock Platelet mean volume (Bld) [Entitic vol] 10.3 fL Normal 9.5-13.[address] [facility] Comment on above: Performed By: #### C BC #### [facility] [address] [address] [address] Nelson Pollock PLT 196 103/ul Normal 150-[address] [facility] Comment on above: Performed By: #### C BC #### [facility] [address] [address] [address] Nelson Pollock RBC 5.37 106/ul Normal 4.70-6.[address] [facility] Comment on above: Performed By: #### C BC #### [facility] [address] [address] [address] Nelson Pollock WBC 11.3 103/ul Critically high 4.0-11.0 [facility] Comment on above: Performed By: #### C BC #### [facility] [address] [place] [address] Dr. Nelson Pollock PROF CHEM 8 (BAS METB)on Anion gap [Moles/Vol] 10.8 mmol/L Normal [facility] Comment on above: Performed By: #### B JOVANI HSTRLESAN ####[facility] [address] [address]DrErika Pollock Calcium [Mass/Vol] 8.8 mg/dL Normal 8.4-10.2 [facility] Comment on above: Performed By: #### B JOVANI HSTROPN ####[facility] [address] [address]DrErika Pollock Chloride [Moles/Vol] 104 mmol/L Normal 98-[address] [facility] Comment on above: Performed By: #### B JOVANI HSTROPN ####[facility] [address] [address]DrErika Pollock CO2 [Moles/Vol] 26.7 mmol/L Normal 22.0-30.0 [facility] Comment on above: Performed By: #### B MP, HSTROPN ####[facility] [address] [id number]. Nelson Pollock Creatinine [Mass/Vol] 0.95 mg/dL Normal 0.66-1.[address] [facility] Comment on above: Performed By: #### B JOVANI, HSTROPN ####[facility] [address] [id number]. Nelson Pollock EGFR-AF DOMINICAN >60 Normal >=60 [facility] Comment on above: Performed By: #### B JOVANI, HSTROPN ####[facility] [address] [id number]. Nelson Pollock EGFR-NON AF DOMINICAN >60 Normal >=[address] [facility] Comment on above: Performed By: #### B JOVANI, HSTROPN ####[facility] [address] [address]Dr. Cloverkusum Pollock Glucose [Mass/Vol] 121 mg/dL Critically high 74-106 [facility] Comment on above: Performed By: #### B JOVANI, HSTROPN ####[facility] [address] [address]Dr. Nelson Pollock Potassium [Moles/Vol] 3.5 mmol/L Normal 3.4-5.[address] [facility] Comment on above: Performed By: #### B JOVANI, HSTROPN ####[facility] [address] [address]Dr. Cloverkusum Pollock Sodium [Moles/Vol] 138 mmol/L Normal 137-145 [facility] Comment on above: Performed By: #### B JOVANI, HSTROPN ####[facility] [address] [id number]. Nelson Pollock Urea nitrogen [Mass/Vol] 12.0 mg/dL Normal 9.0-20.[address] [facility] Comment on above: Performed By: #### B JOVANI, HSTROPN ####[facility] [address] [id number]. Cloverkusum Phill Urea nitrogen/Creatinine [Mass ratio] 12.6 mg/mg Normal [facility] Comment on above: Performed By: #### B JOVANI, HSTROPN ####[facility] [address] [place], [place] [address]AoDr. Nelson Pollock TROPONIN, HIGH SENSITIVITYon 05-06-2021 HSTROP 41.0 pg/mL Normal 4.0-42.[address] [facility] Comment on above: Result Comment: CUT- OFF POINTS HAVE BEEN ESTABLISHED BASED ON THE FOURTH UNIVERSAL DEFINITIONS OF MYOCARDIAL INFARCTION. THE UPPER REFERENCE LIMIT (URL) OF TROPONIN, DEFINED THE 99TH PERCENTILE OF cTnI DISTRIBUTION IN A REFERENCE POPULATION, HAS BEEN CONFIRMED THE DECISION THRESHOLD FOR PA DIAGNOSIS. Performed By: #### B MP HSTROPN ####[facility] [address] [place], [place] [address]JnDr. Nelson Pollock XR CHEST 1 Von 05-06-2021 [...] acute pulmonary findings. Electronically authenticated by: CARLTON GALINDO Date: 2021-05-06 20:10 Normal [facility] BNPon 01-06-2021 Natriuretic peptide B (Bld) [Mass/Vol] 268.0 pg/mL Normal <=1,800.0 [facility] Comment on above: Performed By: #### B [employer] #### [facility] [address] [place], [place] [address] Dr. Nelson Pollock CBC AUTO DIFFon 01-06-2021 BASO # 0.1 103/ul Normal 0.0-0.[address] [facility] Comment on above: Performed By: #### C BC #### [facility] [address] [place], [place] [address] Dr. Nelson Pollock Basophils/100 WBC (Bld) 0.6 % Normal 0.2-2.0 [facility] Comment on above: Performed By: #### C BC #### [facility] [address] [place] [address] Dr. Nelson Pollock EO # 0.2 103/ul Normal 0.0-0.[address] [facility] Comment on above: Performed By: #### C BC #### [facility] [address] [place] [address] Dr. Nelson Pollock Eosinophils/100 WBC (Bld) 1.6 % Normal 0.9-7.[address] [facility] Comment on above: Performed By: #### C BC #### [facility] [address] [place] [address] Dr. Nelson Pollock Erythrocyte distribution width (RBC) [Ratio] 13.9 % Normal 11.0-15.[address] [facility] Comment on above: Performed By: #### C BC #### [facility] [address] [place] [address] Dr. Nelson Pollock Hematocrit (Bld) [Volume fraction] 46.4 % Normal 42.0-54.[address] [facility] Comment on above: Performed By: #### C BC #### [facility] [address] [place] [address] Dr. Nelson Pollock Hemoglobin (Bld) [Mass/Vol] 15.5 g/dL Normal 14.0-18.[address] [facility] Comment on above: Performed By: #### C BC #### [facility] [address] [place] [address] Dr. Nelson Pollock IG # 0.04 10e3/ul Critically high 0.00-0.03 [facility] Comment on above: Performed By: #### C BC #### [facility] [address] [place] [address] Dr. Nelson Pollock IG % 0.4 % Normal 0.0-0.[address] [facility] Comment on above: Performed By: #### C BC #### [facility] [address] [place] [address] Dr. Nelson Pollock LYMPH # 2.3 103/ul Normal 1.2-3.[address] [facility] Comment on above: Performed By: #### C BC #### [facility] [address] [place] [address] Dr. Nelson Pollock Lymphocytes/100 WBC (Bld) 22.8 % Normal 20.5-60.[address] [facility] Comment on above: Performed By: #### C BC #### [facility] [address] [place] [address] Dr. Nelson Pollock MANUAL DIFF REQ NO Normal [facility] Comment on above: Performed By: #### C BC #### [facility] [address] [place] [address] Dr. Nelson Pollock MCH (RBC) [Entitic mass] 28.3 pg Normal 25.9-34.[address] [facility] Comment on above: Performed By: #### C BC #### [facility] [address] [place] [address] Dr. Nelson Pollock MCHC (RBC) [Mass/Vol] 33.4 g/dL Normal 29.9-35.[address] [facility] Comment on above: Performed By: #### C BC #### [facility] [address] [place] [address] Dr. Nelson Pollock MCV (RBC) [Entitic vol] 84.7 fL Normal 80.0-94.[address] [facility] Comment on above: Performed By: #### C BC #### [facility] [address] [place] [address] Dr. Nelson Pollock MONO # 0.8 103/ul Normal 0.3-0.8 [facility] Comment on above: Performed By: #### C BC #### [facility] [address] [place] [address] Dr. Nelson Pollock Monocytes/100 WBC (Bld) 8.0 % Normal 1.7-12.0 [facility] Comment on above: Performed By: #### C BC #### [facility] [address] [place] [address] Dr. Nelson Pollock NEUT # 6.8 103/ul Critically high 1.4-6.5 [facility] Comment on above: Performed By: #### C BC #### [facility] [address] [place] [address] Dr. Nelson Pollock Neutrophils/100 WBC (Bld) 66.6 % Normal 43.0-75.[address] [facility] Comment on above: Performed By: #### C BC #### [facility] [address] [place] [address] Dr. Nelson Pollock Platelet mean volume (Bld) [Entitic vol] 10.6 fL Normal 9.5-13.[address] [facility] Comment on above: Performed By: #### C BC #### [facility] [address] [place] [address] Dr. Nelson Pollock PLT 201 103/ul Normal 150-[address] [facility] Comment on above: Performed By: #### C BC #### [facility] [address] [place] [address] Dr. Nelson Pollock RBC 5.48 106/ul Normal 4.70-6.[address] [facility] Comment on above: Performed By: #### C BC #### [facility] [address] [place] [address] Dr. Nelson Pollock WBC 10.2 103/ul Normal 4.0-11.[address] [facility] Comment on above: Performed By: #### C BC #### [facility] [address] [place] [address] Dr. Nelson Pollock PROF 14(COMP METB)on 021 Albumin [Mass/Vol] 3.8 g/dL Normal 3.5-5.0 [facility] Comment on above: Performed By: #### C JOVANI HSTROPN #### [facility] [address] [place] [address] Dr. Nelson Pollock Albumin/Globulin [Mass ratio] 1.2 {ratio} Normal [facility] Comment on above: Performed By: #### C JOVANI HSTROPN #### [facility] [address] [place] [address] Dr. Nelson Pollock ALP [Catalytic activity/Vol] 73 U/L Normal 38-[address] [facility] Comment on above: Performed By: #### C MP, HSTROPN #### [facility] [address] [address] [address] Nelson Pollock ALT [Catalytic activity/Vol] 20 U/L Critically low 21-[address] [facility] Comment on above: Performed By: #### C MP, HSTROPN #### [facility] [address] [place] [address] Dr. Nelson Pollock Anion gap [Moles/Vol] 11.0 mmol/L Normal [facility] Comment on above: Performed By: #### C MP, HSTROPN #### [facility] [address] [place] [address] Dr. Nelson Pollock AST [Catalytic activity/Vol] 18 U/L Normal 17-[address] [facility] Comment on above: Performed By: #### C MP, HSTROPN #### [facility] [address] [place] [address] Dr. Nelson Pollock Bilirubin [Mass/Vol] 1.7 mg/dL Critically high 0.2-1.[address] [facility] Comment on above: Performed By: #### C MP, HSTROPN #### [facility] [address] [place] [address] Dr. Nelson Pollock Calcium [Mass/Vol] 8.9 mg/dL Normal 8.4-10.2 [facility] Comment on above: Performed By: #### C MP, HSTROPN #### [facility] [address] [place] [address] Dr. Nelson Pollock Chloride [Moles/Vol] 105 mmol/L Normal 98-[address] [facility] Comment on above: Performed By: #### C MP, HSTROPN #### [facility] [address] [place] [address] Dr. Nelson Pollock CO2 [Moles/Vol] 26.5 mmol/L Normal 22.0-30.0 [facility] Comment on above: Performed By: #### C MP, HSTROPN #### [facility] [address] [place] [address] Dr. Nelson Pollock Creatinine [Mass/Vol] 0.82 mg/dL Normal 0.66-1.[address] [facility] Comment on above: Performed By: #### C JOVANI, HSTROPN #### [facility] [address] [address] [address] Nelson Pollock EGFR-AF DOMINICAN >60 Normal >=60 [facility] Comment on above: Performed By: #### C JOVANI, HSTROPN #### [facility] [address] [address] [address] Nelson Pollock EGFR-NON AF DOMINICAN >60 Normal >=[address] [facility] Comment on above: Performed By: #### C JOVANI, HSTROPN #### [facility] [address] [address] [address] Nelson Pollock Globulin (S) [Mass/Vol] 3.3 g/dL Normal [facility] Comment on above: Performed By: #### C JOVANI, HSTROPN #### [facility] [address] [address] [address] Nelson Pollock Glucose [Mass/Vol] 87 mg/dL Normal 74-106 [facility] Comment on above: Performed By: #### C JOVANI, HSTROPN #### [facility] [address] [address] [address] Nelson Pollock Potassium [Moles/Vol] 3.5 mmol/L Normal 3.4-5.[address] [facility] Comment on above: Performed By: #### C JOVANI, HSTROPN #### [facility] [address] [address] [address] Nelson Pollock Protein [Mass/Vol] 7.1 g/dL Normal 6.1-8.2 [facility] Comment on above: Performed By: #### C MP, HSTROPN #### [facility] [address] [address] [address] Nelson Pollock Sodium [Moles/Vol] 139 mmol/L Normal 137-145 [facility] Comment on above: Performed By: #### C MP, HSTROPN #### [facility] [address] [address] [address] Nelson Pollock Urea nitrogen [Mass/Vol] 13.0 mg/dL Normal 9.0-20.0 [facility] Comment on above: Performed By: #### C JOVANI, HSTROPN #### [facility] [address] [place], [place] [address] Dr. Nelson Pollock Urea nitrogen/Creatinine [Mass ratio] 15.9 mg/mg Normal [facility] Comment on above: Performed By: #### C MP, HSTROPN #### [facility] [address] [address] [address] Nelson Pollock TROPONIN, HIGH SENSITIVITYon 01-06-2021 HSTROP 43.4 pg/mL Critically high 4.0-42.2 [facility] Comment on above: Result Comment: CUT- OFF POINTS HAVE BEEN ESTABLISHED BASED ON THE FOURTH UNIVERSAL DEFINITIONS OF MYOCARDIAL INFARCTION. THE UPPER REFERENCE LIMIT (URL) OF TROPONIN, DEFINED THE 99TH PERCENTILE OF cTnI DISTRIBUTION IN A REFERENCE POPULATION, HAS BEEN CONFIRMED THE DECISION THRESHOLD FOR PA DIAGNOSIS. Performed By: #### C JOVANI, HSTROPN #### [facility] [address] [address] [address] Nelson Pollock XR CHEST 1 Von [...] JASKARAN CARRERA Date: 2021-01-06 11:24 Normal [facility] BASIC METABOLIC PANELon - Calcium [Mass/Vol] 8.5 mg/dL Low 8.6-10.3 [facility] Comment on above: Order Comment: No: D o not add to previous draw Performed By: #### 0 [id number], [id number] #### [facility] [address] [place] [address], [facility] Chloride [Moles/Vol] 108 mmol/L High 98-107 [facility] Comment on above: Order Comment: No: D o not add to previous draw Performed By: #### 0 [id number], [id number] #### [facility] [address] [place] [address], [place] CO2 [Moles/Vol] 27 mmol/L Normal 21-31 [facility] Comment on above: Order Comment: No: D o not add to previous draw Performed By: #### 0 [id number], [id number] #### [facility] [address] [place] [address], [facility] Creatinine [Mass/Vol] 0.89 mg/dL Normal 0.70-1.30 The [facility] Comment on above: Order Comment: No: D o not add to previous draw Performed By: #### 0 0071, [id number] #### [facility] [address] [place] [address], [place] GFR/1.73 sq M predicted among blacks MDRD (S/P/Bld) [Vol rate/Area] mL/min/{1.73_m2} Normal >60 [facility] Comment on above: Order Comment: No: D o not add to previous draw Result Comment: Calc ulation may not be valid for patients over 70 years Performed By: #### 0 0071, [id number] #### [facility] [address] [place] [address], [place] GFR/1.73 sq M predicted among non-blacks MDRD (S/P/Bld) [Vol rate/Area] mL/min/{1.73_m2} Normal >60 [facility] Comment on above: Order Comment: No: D o not add to previous draw Result Comment: Calc ulation may not be valid for patients over 70 years Performed By: #### 0 0071, [id number] #### [facility] [address] [place] [address], [place] Glucose [Mass/Vol] 78 mg/dL Normal 70-100 [facility] Comment on above: Order Comment: No: D o not add to previous draw Performed By: #### 0 0071, [id number] #### [facility] [address] [place] [address], [place] Potassium [Moles/Vol] 4.0 mmol/L Normal 3.5-5.1 [facility] Comment on above: Order Comment: No: D o not add to previous draw Performed By: #### 0 0071, 90890 #### [facility] [address] [place] [address], [place] Sodium [Moles/Vol] 144 mmol/L Normal 136-145 [facility] Comment on above: Order Comment: No: D o not add to previous draw Performed By: #### 0 0071, 83862 #### [facility] [address] [place] [address], [place] Urea nitrogen [Mass/Vol] 21 mg/dL Normal 7-25 [facility] Comment on above: Order Comment: No: D o not add to previous draw Performed By: #### 0 0071, [id number] #### [facility] [address] [place] [address], [place] Calcium [Mass/Vol] 8.3 mg/dL Low 8.6-10.3 [facility] Comment on above: Performed By: #### 0 0071, 74366, 16264 #### [facility] [address] [place] [address], [place] Chloride [Moles/Vol] 108 mmol/L High 98-107 [facility] Comment on above: Performed By: #### 0 0071, 40506, 68542 #### [facility] [address] [place] [address], [place] CO2 [Moles/Vol] 24 mmol/L Normal 21-31 [facility] Comment on above: Performed By: #### 0 0071, 46971, 48596 #### [facility] [address] [place] [address], [place] Creatinine [Mass/Vol] 0.90 mg/dL Normal 0.70-1.30 [facility] Comment on above: Performed By: #### 0 0071, 71897, 48655 #### [facility] [address] [place] [address], [place] GFR/1.73 sq M predicted among blacks MDRD (S/P/Bld) [Vol rate/Area] mL/min/{1.73_m2} Normal >60 [facility] Comment on above: Result Comment: Calc ulation may not be valid for patients over 70 years Performed By: #### 0 0071, 82961, 17613 #### [facility] [address] [place] [address], [place] GFR/1.73 sq M predicted among non-blacks MDRD (S/P/Bld) [Vol rate/Area] mL/min/{1.73_m2} Normal >60 [facility] Comment on above: Result Comment: Calc ulation may not be valid for patients over 70 years Performed By: #### 0 0071, 73181, 83495 #### [facility] [address] [place] [address], [place] Glucose [Mass/Vol] 101 mg/dL High 70-100 [facility] Comment on above: Performed By: #### 0 0071, 89292, 30157 #### [facility] [address] [place] [address], [place] Potassium [Moles/Vol] 3.5 mmol/L Normal 3.5-5.1 [facility] Comment on above: Performed By: #### 0 007, 84869, 57371 #### [facility] [address] [place] [address], [place] Sodium [Moles/Vol] 141 mmol/L Normal 136-145 [facility] Comment on above: Performed By: #### 0 0071, 56354, 99941 #### [facility] [address] [place] [address], [facility] Urea nitrogen [Mass/Vol] 24 mg/dL Normal 7-25 [facility] Comment on above: Performed By: #### 0 0071, 38113, 25319 #### [facility] [address] [place] [address], [facility] CBC COMPLETE BLOOD COUNTon 0 - Erythrocyte distribution width (RBC) [Ratio] 13.8 % Normal 11.5-15.0 [facility] Comment on above: Order Comment: No: D o not add to previous draw Performed By: #### 5 0608 #### [facility] [address] [place] [address], [facility] Hematocrit (Bld) [Volume fraction] 37.7 % Low 39.0-50.0 [facility] Comment on above: Order Comment: No: D o not add to previous draw Performed By: #### 5 0608 #### [facility] [address] [place] [address], [facility] Hemoglobin (Bld) [Mass/Vol] 12.9 g/dL Low 13.0-17.0 [facility] Comment on above: Order Comment: No: D o not add to previous draw Performed By: #### 5 0608 #### [facility] [address] [place] [address], [facility] MCH (RBC) [Entitic mass] 29.1 pg Normal 27.0-33.0 [facility] Comment on above: Order Comment: No: D o not add to previous draw Performed By: #### 5 0608 #### [facility] [address] [place] [address], [facility] MCHC (RBC) [Mass/Vol] 34.2 g/dL Normal 32.0-35.0 [facility] Comment on above: Order Comment: No: D o not add to previous draw Performed By: #### 5 0608 #### [facility] [address] [facility] [address], [facility] MCV (RBC) [Entitic vol] 85.1 fL Normal 82.0-98.0 [facility] Comment on above: Order Comment: No: D o not add to previous draw Performed By: #### 5 0608 #### [facility] [address] [facility] [address], [facility] Nucleated RBC/100 WBC (Bld) [Ratio] 0 % Normal 0-0 [facility] Comment on above: Order Comment: No: D o not add to previous draw Performed By: #### 5 0608 #### [facility] [address] [place] [address], [facility] PLAT CNT 198 10*3/uL Normal 150-400 The [facility] Comment on above: Order Comment: No: D o not add to previous draw Performed By: #### 5 0608 #### [facility] [address] [place] [address], [facility] RBC (Bld) [#/Vol] 4.43 10*6/uL Normal 4.20-5.70 [facility] Comment on above: Order Comment: No: D o not add to previous draw Performed By: #### 5 0608 #### [facility] [address] [facility] [address], [facility] WBC (Bld) [#/Vol] 10.40 10*3/uL Normal 4.00-10.60 [facility] Comment on above: Order Comment: No: D o not add to previous draw Performed By: #### 5 0608 #### [facility] [address] [place] [address], [facility] LIPID PROFILEon 07-02-2020 Cholesterol [Mass/Vol] 119 mg/dL Low 120-200 The [facility] Comment on above: Result Comment: CHOL ESTEROL REFERENCE RANGE: 20 YEARS AND OLDER CARDIOVASCULAR RISK Less than 200 mg/dl Low Risk 200 to 239 mg/dl Borderline Risk 240 mg/dl and greater High Risk Performed By: #### 0 0071, 45284, 85029 #### [facility] [address] [facility] [place] [address], [facility] Cholesterol in HDL [Mass/Vol] 37 mg/dL Normal 23-92 The [facility] Comment on above: Result Comment: Slig ht variation in normal range could be due to gender and/or age. HDL CHOLESTEROL REFERENCE RANGE: 20 years and older Cardiovascular Risk > or =60 mg/dL Desirable 40 TO 59 mg/dL Low Risk <40 mg/dL High Risk Performed By: #### 0 0071, 74010, 40624 #### [facility] [address] [place] [address], [facility] Cholesterol in LDL [Mass/Vol] 68 mg/dL Normal 0-130 The [facility] Comment on above: Result Comment: LDL IS A CALCULATION LDL IS ONLY VALID IF THE TRIG IS LESS THAN 400. Performed By: #### 0 0071, 46430, 13173 #### [facility] [address] [place] [address], [facility] Cholesterol.total/Cho lesterol in HDL [Mass ratio] 3.2 {ratio} Normal 0.0-4.5 The [facility] Comment on above: Performed By: #### 0 0071, 00957, 15069 #### [facility] [address] [place] [address], [facility] NON-HDL CHOLESTEROL 82 mg/dL Normal [facility] Comment on above: Performed By: #### 0 0071, 15928, 12007 #### [facility] [address] [facility] [place] [address], [facility] Triglyceride [Mass/Vol] 71 mg/dL Normal 40-149 The [facility] Comment on above: Result Comment: TRIG LYCERIDE REFERENCE RANGE: 20 YEARS AND OLDER CARDIOVASCULAR RISK LESS THAN 150 mg/dl LOW RISK 150 TO 199 mg/dl BORDERLINE RISK 200 mg/dl AND GREATER HIGH RISK Performed By: #### 0 0071, 40162, 28745 #### [facility] [address] [place] [address], [facility] VLDL CHOL 14 mg/dL Normal 0-40 The [facility] Comment on above: Performed By: #### 0 0071, 19955, 28112 #### [facility] [address] [facility] [place] [address], [facility] MAGNESIUM BLOODon 07-02-2020 Magnesium [Mass/Vol] 1.5 mg/dL Low 1.9-2.7 The [facility] Comment on above: Order Comment: No: D o not add to previous draw Performed By: #### 0 0071, 11527 #### [facility] [address] [place] [address], [facility] Magnesium [Mass/Vol] 1.3 mg/dL Low 1.9-2.7 The [facility] Comment on above: Performed By: #### 1 0070, 63662 #### [facility] [address] [facility] [place] [address], [facility] TROPONIN-Ion 07-02-2020 Troponin I.cardiac [Mass/Vol] 0.03 ng/mL Normal 0.00-0.04 The [facility] Comment on above: Order Comment: No: D o not add to previous draw Result Comment: REFE RENCE RANGES: 0.00 - 0.04 ng/ml NORMAL 0.05 - 0.50 ng/ml INDETERMINATE > 0.50 ng/ml CONSISTENT WITH AN M.I. Performed By: #### 0 0071, 44572, 11862 #### [facility] [address] [place] [address], [facility] Troponin I.cardiac [Mass/Vol] 0.03 ng/mL Normal 0.00-0.04 The [facility] Comment on above: Order Comment: No: D o not add to previous draw Result Comment: REFE RENCE RANGES: 0.00 - 0.04 ng/ml NORMAL 0.05 - 0.50 ng/ml INDETERMINATE > 0.50 ng/ml CONSISTENT WITH AN M.I. Performed By: #### 1 0070, 03552 #### [facility] [address] [facility] UFH HEPARIN ASSAYon 07-03-19 UNFRACTIONATED HEPARIN 0.63 IU/mL Normal 0.30-0.70 The [facility] Comment on above: Result Comment: Danica roxaban and Apixaban will interfere with the anti Xa assay used to monitor UFH and LMWH. Performed By: #### 5 0608 #### [facility] [address] UNFRACTIONATED HEPARIN 0.48 IU/mL Normal 0.30-0.70 [facility] Comment on above: Order Comment: No: D o not add to previous draw Result Comment: Danica roxaban and Apixaban will interfere with the anti Xa assay used to monitor UFH and LMWH. Performed By: #### 5 0608 #### [facility] [address] [facility]. [address] UNFRACTIONATED HEPARIN 0.34 IU/mL Normal 0.30-0.70 The [facility] Comment on above: Result Comment: [place] roxaban and Apixaban will interfere with the anti Xa assay used to monitor UFH and LMWH. Performed By: #### 5 0608 #### [facility] [address] [facility] APTTon 07-01-2020 aPTT Coag (Bld) [Time] 39.8 s High 25.0-35.0 The [facility] Comment on above: Order Comment: [...] PURPOSE. Performed By: #### 5 0608 #### [facility] [address] [place] [address], [place] BASIC METABOLIC PANELon 06-18 Calcium [Mass/Vol] 8.6 mg/dL Normal 8.6-10.3 [facility] Comment on above: Order Comment: No: D o not add to previous draw Performed By: #### 5 0608 #### [facility] [address] [place] [address], [place] Chloride [Moles/Vol] 104 mmol/L Normal 98-107 [facility] Comment on above: Order Comment: No: D o not add to previous draw Performed By: #### 5 0608 #### [facility] [address] [place] [address], [place] CO2 [Moles/Vol] 27 mmol/L Normal 21-31 [facility] Comment on above: Order Comment: No: D o not add to previous draw Performed By: #### 5 0608 #### [facility] [address] [place] [address], [place] Creatinine [Mass/Vol] 0.99 mg/dL Normal 0.70-1.30 [facility] Comment on above: Order Comment: No: D o not add to previous draw Performed By: #### 5 0608 #### [facility] [address] [place] [address], [place] GFR/1.73 sq M predicted among blacks MDRD (S/P/Bld) [Vol rate/Area] mL/min/{1.73_m2} Normal >60 [facility] Comment on above: Order Comment: No: D o not add to previous draw Result Comment: Calc ulation may not be valid for patients over 70 years Performed By: #### 5 0608 #### [facility] [address] [place] [address], [place] GFR/1.73 sq M predicted among non-blacks MDRD (S/P/Bld) [Vol rate/Area] mL/min/{1.73_m2} Normal >60 [facility] Comment on above: Order Comment: No: D o not add to previous draw Result Comment: Calc ulation may not be valid for patients over 70 years Performed By: #### 5 0608 #### [facility] [address] [place] [address], [place] Glucose [Mass/Vol] 126 mg/dL High 70-100 [facility] Comment on above: Order Comment: No: D o not add to previous draw Performed By: #### 5 0608 #### [facility] [address] [place] [address], [place] Potassium [Moles/Vol] 2.9 mmol/L Low 3.5-5.1 [facility] Comment on above: Order Comment: No: D o not add to previous draw Performed By: #### 5 0608 #### [facility] [address] [place] [address], [place] Sodium [Moles/Vol] 141 mmol/L Normal 136-145 [facility] Comment on above: Order Comment: No: D o not add to previous draw Performed By: #### 5 0608 #### [facility] [address] [place] [address], [place] Urea nitrogen [Mass/Vol] 25 mg/dL Normal 7-25 [facility] Comment on above: Order Comment: No: D o not add to previous draw Performed By: #### 5 0608 #### [facility] [address] [place] [address], [place] CBC COMPLETE BLOOD COUNTon 0 - Erythrocyte distribution width (RBC) [Ratio] 13.7 % Normal 11.5-15.0 [facility] Comment on above: Order Comment: No: D o not add to previous draw Performed By: #### 5 0608 #### [facility] [address] [place] [address], [place] Hematocrit (Bld) [Volume fraction] 39.8 % Normal 39.0-50.0 [facility] Comment on above: Order Comment: No: D o not add to previous draw Performed By: #### 5 0608 #### [facility] [address] [place] [address], [facility] Hemoglobin (Bld) [Mass/Vol] 13.7 g/dL Normal 13.0-17.0 [facility] Comment on above: Order Comment: No: D o not add to previous draw Performed By: #### 5 0608 #### [facility] [address] [place] [address], [facility] MCH (RBC) [Entitic mass] 28.7 pg Normal 27.0-33.0 [facility] Comment on above: Order Comment: No: D o not add to previous draw Performed By: #### 5 0608 #### [facility] [address] [place] [address], [facility] MCHC (RBC) [Mass/Vol] 34.4 g/dL Normal 32.0-35.0 [facility] Comment on above: Order Comment: No: D o not add to previous draw Performed By: #### 5 0608 #### [facility] [address] [place] [address], [facility] MCV (RBC) [Entitic vol] 83.3 fL Normal 82.0-98.0 [facility] Comment on above: Order Comment: No: D o not add to previous draw Performed By: #### 5 0608 #### [facility] [address] [place] [address], [facility] Nucleated RBC/100 WBC (Bld) [Ratio] 0 % Normal 0-0 [facility] Comment on above: Order Comment: No: D o not add to previous draw Performed By: #### 5 0608 #### [facility] [address] [place] [address], [facility] PLAT CNT 184 10*3/uL Normal 150-400 [facility] Comment on above: Order Comment: No: D o not add to previous draw Performed By: #### 5 0608 #### [facility] [address] [facility] [address], [facility] RBC (Bld) [#/Vol] 4.78 10*6/uL Normal 4.20-5.70 [facility] Comment on above: Order Comment: No: D o not add to previous draw Performed By: #### 5 0608 #### [facility] [address] [place] [address], [facility] WBC (Bld) [#/Vol] 9.34 10*3/uL Normal 4.00-10.60 [facility] Comment on above: Order Comment: No: D o not add to previous draw Performed By: #### 5 0608 #### [facility] [address] PROTHROMBIN TIMEon 1 INR Coag (PPP) [Relative time] 1.12 {INR} Normal 0.91-1.16 [facility] Comment on above: Order Comment: No: D o not add to previous draw Result Comment: ACCC P RECOMMENDED INR FOR WARFARIN THERAPY -------- ------- CONDITION INR PROPHYLAXIS OF VENOUS THROMBOSIS 2-3 (HIGH-RISK SURGERY) TREATMENT OF VENOUS THROMBOSIS 2-3 TREATMENT OF PULMONARY EMBOLISM 2-3 PREVENTION OF SYSTEMIC EMBOLISM: 2-3 ACUTE MYOCARDIAL INFARCTION TISSUE HEART VALVES VALVULAR HEART DISEASE ATRIAL FIBRILLATION RECURRENT SYSTEMIC EMBOLISM MECHANICAL HEART VALVE 2.5-3.5 FROM: ORAL ANTICOAGULANTS. MECHANISM OF ACTION, CLINICAL EFFECTIVENESS, AND OPTIMAL THERAPEUTIC RANGE. CHEST 1995;108:231S-246S. Performed By: #### 5 0608 #### [facility] [address] [facility] [address] PT Coag (PPP) [Time] 14.4 s Normal 12.3-14.8 [facility] Comment on above: Order Comment: No: D o not add to previous draw Result Comment: ALL RESULTS MUST BE INTERPRETED WITH RESPECT TO BLOOD DRAWING ARTIFACT OR DILUTION ERROR OF ANTICOAGULANT AT THE TIME OF SAMPLING. Performed By: #### 5 0608 #### [facility] [address] [facility] [address] TROPONIN-Ion 07-01-2020 Troponin I.cardiac [Mass/Vol] 0.02 ng/mL Normal 0.00-0.04 [facility] Comment on above: Order Comment: No: D o not add to previous draw Result Comment: REFE RENCE RANGES: 0.00 - 0.04 ng/ml NORMAL 0.05 - 0.50 ng/ml INDETERMINATE > 0.50 ng/ml CONSISTENT WITH AN M.I. Performed By: #### 5 0608 #### [facility] [address] [facility]. [address] UFH HEPARIN ASSAYon 07-02-19 21 UNFRACTIONATED HEPARIN <0.10 Critically low 0.30-0.70 [facility] Comment on above: Result Comment: Dan[place] roxaban and Apixaban will interfere with the anti Xa assay used to monitor UFH and LMWH. RESULTS CHECKED AND CALLED. ACCURATELY READ BACK BY Jesus Manuel Velez RN at 2148. Performed By: #### 5 [id number] #### [facility] [address] [facility]. [address] Vital Signs Date Time Vital Sign Value Performing Clinician Facility 09-02-2024 10:53-0400 Hourly Rounding Nicole Ojeda [facility] [place] 09-02-2024 10:53-0400 [facility] 09-02-2024 09:00-0400 Hourly Rounding [facility] 09-02-2024 09:00-0400 Promise to Return [facility] 09-02-2024 08:50-0400 Hourly Rounding [facility] 09-02-2024 08:50-0400 Promise to Return [facility] 09-02-2024 08:34-0400 Heart rate 87 /min [facility] 09-02-2024 08:34-0400 SaO2% (BldA) [Mass fraction] 98 % [facility] 09-02-2024 08:32-0400 Body temperature 98.42 [degF] [facility] 09-02-2024 08:32-0400 Diastolic blood pressure 70 mm[Hg] [facility] 09-02-2024 08:32-0400 Mean blood pressure 87 mm[Hg] [facility] 09-02-2024 08:32-0400 Systolic blood pressure 121 mm[Hg] [facility] 09-02-2024 04:06-0400 Blood Pressure Location [facility] 09-02-2024 04:06-0400 Body temperature 98.06 [degF] [facility] 09-02-2024 04:06-0400 Diastolic blood pressure 74 mm[Hg] [facility] 09-02-2024 04:06-0400 Heart rate 83 /min [facility] 09-02-2024 04:06-0400 Mean blood pressure 91 mm[Hg] [facility] 09-02-2024 04:06-0400 Respiratory rate 18 /min [facility] 09-02-2024 04:06-0400 SaO2% (BldA) [Mass fraction] 96 % [facility] 09-02-2024 04:06-0400 Systolic blood pressure 126 mm[Hg] [facility] 09-01-2024 23:45-0400 Blood Pressure Location [facility] 09-01-2024 23:45-0400 Body temperature 97.7 [degF] [facility] 09-01-2024 23:45-0400 Diastolic blood pressure 67 mm[Hg] [facility] 09-01-2024 23:45-0400 Heart rate 80 /min [facility] 09-01-2024 23:45-0400 Mean blood pressure 89 mm[Hg] [facility] 09-01-2024 23:45-0400 Respiratory rate 16 /min [facility] 09-01-2024 23:45-0400 SaO2% (BldA) [Mass fraction] 99 % [facility] 09-01-2024 23:45-0400 Systolic blood pressure 132 mm[Hg] [facility] 09-01-2024 21:09-0400 Blood Pressure Location [facility] 09-01-2024 21:09-0400 Body temperature 97.34 [degF] [facility] 09-01-2024 21:09-0400 Mean blood pressure 93 mm[Hg] [facility] 09-01-2024 21:09-0400 Respiratory rate 18 /min [facility] 09-01-2024 18:00-0400 Body temperature 98.06 [degF] [facility] 09-01-2024 12:15-0400 Body temperature 98.24 [degF] [facility] 09-01-2024 11:59-0400 Body temperature 98.42 [degF] [facility] 09-01-2024 11:55-0400 Respiratory rate 20 /min [facility] 09-01-2024 11:48-0400 Respiratory rate 20 /min [facility] 09-01-2024 10:17-0400 Heart rate 80 /min [facility] 09-01-2024 09:11-0400 Heart rate 78 /min [facility] 09-01-2024 08:05-0400 Heart rate 75 /min [facility] 05-04-2024 08:25-0500 Body height 162.6 cm Debbi Murcia [employer] Work Phone: [facility] 05-04-2024 08:25-0500 Body mass index (BMI) [Ratio] 26.33 kg/m2 Debbi Murcia [employer] Work Phone: [facility] 05-04-2024 08:25-0500 Body weight 69.58 kg Debbi Murcia [employer] Work Phone: [facility] 05-04-2024 08:25-0500 Diastolic blood pressure 80 mm[Hg] Debbi Murcia [employer] Work Phone: [facility] 05-04-2024 08:25-0500 Heart rate 88 /min Debbi Murcia [employer] Work Phone: [facility] 05-04-2024 08:25-0500 Respiratory rate 17 /min Debbi Murcia [employer] Work Phone: [facility] 05-04-2024 08:25-0500 SaO2% (BldA) [Mass fraction] 97 % Debbi Murcia [employer] Work Phone: [facility] 05-04-2024 08:25-0500 Systolic blood pressure 128 mm[Hg] Debbi Murcia [employer] Work Phone: [facility] 01-13-2024 08:33-0400 Body height 162.6 cm Scott Tai MD Work Phone: [facility] 01-13-2024 08:33-0400 Body mass index (BMI) [Ratio] 25.92 kg/m2 Scott Tai MD Work Phone: [facility] 01-13-2024 08:33-0400 Body weight 68.49 kg Scott Tai MD Work Phone: [facility] 01-13-2024 08:33-0400 Diastolic blood pressure 66 mm[Hg] Scott Tai MD Work Phone: [facility] 01-13-2024 08:33-0400 Heart rate 76 /min Scott Tai MD Work Phone: [facility] 01-13-2024 08:33-0400 SaO2% (BldA) [Mass fraction] 96 % Scott Tai MD Work Phone: [facility] 01-13-2024 08:33-0400 Systolic blood pressure 128 mm[Hg] Scott Tai MD Work Phone: [facility] 05-27-2023 15:13-0500 Body height 162.6 cm Scott Tai MD Work Phone: [facility] 05-27-2023 15:13-0500 Body mass index (BMI) [Ratio] 26.61 kg/m2 Scott Tai MD Work Phone: [facility] 05-27-2023 15:13-0500 Body weight 70.31 kg Scott Tai MD Work Phone: [facility] 05-27-2023 15:13-0500 Diastolic blood pressure 84 mm[Hg] Scott Tai MD Work Phone: [facility] 05-27-2023 15:13-0500 Heart rate 72 /min Scott Tai MD Work Phone: [facility] 05-27-2023 15:13-0500 SaO2% (BldA) [Mass fraction] 96 % Scott Tai MD Work Phone: [facility] 05-27-2023 15:13-0500 Systolic blood pressure 138 mm[Hg] Scott Tai MD Work Phone: [facility] Encounters Encounter Date Encounter Type Care Provider Facility Start: 09-30-2024 ambulatory Jazmin White Facility:[facility] Start: 08-31-2024 End: 09-02-2024 Evaluation and management of inpatient Nicole Ojeda Facility:[facility] Start: 08-31-2024 End: 09-02-2024 Evaluation and management of inpatient Nicole Ojeda [facility] Start: 05-04-2024 End: 05-04-2024 Bamboo flowsheet Debbi Murcia [employer] Work Phone: [facility] Start: 05-04-2024 End: 05-04-2024 Bamboo flowsheet Debbi Murcia [employer] Work Phone: [facility] Start: 05-04-2024 End: 05-04-2024 Assay of hemosiderin, quant Debbi Murcia [employer] Work Phone: [facility] Work Phone: Start: 05-04-2024 End: 05-04-2024 Patient encounter procedure Debbi Murcia NP Work Phone: [facility] Comment on above: Routine general medi mercy examination at health care facility (Primary Dx); Other chronic pancreatitis (CMS/HCC); Chronic systolic (congestive) heart failure (CMS/HCC); Unspecified systolic (congestive) heart failure (CMS/HCC); Chronic kidney disease, stage 3a (HCC) (CMS/HCC); Carpal tunnel syndrome of right wrist; Atherosclerosis of [place] coronary artery of [place] heart without angina pectoris (CMS/HCC); Atrial enlargement, [...] both eyes Start: 05-04-2024 End: 05-04-2024 ambulatory DEBBI MURCIA Not Available Start: 03-30-2024 End: 03-30-2024 Clinisync Result Encounter Generic External Data Provider [facility] Unsolicited Start: 03-30-2024 End: 03-30-2024 Clinisync Result Encounter Generic External Data Provider [facility] Unsolicited Start: 03-22-2024 End: 03-22-2024 ambulatory [facility] Start: 01-13-2024 End: 01-13-2024 Bamboo flowsheet Scott Tai MD Work Phone: [facility] Start: 01-13-2024 End: 01-13-2024 Bamboo flowsheet Scott Tai MD Work Phone: [facility] Start: 01-13-2024 End: 01-13-2024 Assay of hemosiderin, quant Sctot Tai MD Work Phone: [facility] Work Phone: Start: 01-13-2024 End: 01-13-2024 Periodic preventive med est patient 65yrs& older Scott Tai MD Work Phone: [facility] Comment on above: Routine general medi mercy examination at health care facility (Primary Dx); ACP (advance care planning); Atherosclerosis of [place] coronary artery of [place] heart without angina pectoris (CMS/HCC); Atrial enlargement, [...] Not Available Start: 10-05-2023 End: 10-05-2023 [facility] Start: 09-16-2023 End: 09-16-2023 ambulatory SCOTT [...] failure), NYHA class 2 (CMS/HCC); Atherosclerosis of [place] coronary artery of [place] heart without angina pectoris (CMS/HCC); Right cervical radiculopathy Start: 05-27-2023 End: 05-27-2023 ambulatory SCOTT TAI Not Available Start: 05-27-2023 Bamboo flowsheet Scott salguero MD Work Phone: [facility] Start: 05-27-2023 Bamboo flowsheet Scott salguero MD Work Phone: [facility] Start: 04-22-2022 End: 04-22-2022 ambulatory Driss Smith Other [facility] Other Start: 04-22-2022 Telephone encounter Driss álvarez [facility] Start: 12-19-2021 End: 12-19-2021 ambulatory Driss Smith Other [facility] Other Start: 12-19-2021 Telephone encounter Driss álvarez [facility] Start: 07-26-2021 End: 07-26-[address] PRAVEEN MEADOWS Facility:[facility] Start: 05-06-2021 End: 05-06-[address] SCOTT TAI Facility:[facility] Start: 01-06-2021 End: 01-06-[address] JASKARAN CARRERA Facility:[facility] Start: 07-01-2020 End: 07-02-2020 Patient encounter procedure VIDAL ODOM Facility:[facility] Start: 06-28-2018 End: 06-29-2018 Patient encounter procedure DEFAULT PHYSICIAN Facility:[facility] Procedures Date Procedure Procedure Detail Performing Clinician Start: 03-30-2024 ALL BASIC METABOLIC PANEL Generic Silverware Supervisor al Data Provider Start: 10-23-2022 History of coronary artery bypass grafting History of coronary artery bypass graft Scott Tai MD Work Phone: Start: 07-02-2020 MEASUREMENT OF CARDIAC TOTAL ACTIVITY, EXTERNAL APPROACH BINDU ZAIDI Start: 07-02-2020 ULTRASONOGRAPHY OF RIGHT AND LEFT HEART, TRANSESOPHAGEAL BINDU ZAIDI History of coronary artery bypass grafting History of coronary artery bypass graft Debbi Murcia [employer] Work Phone: Plan of Treatment Date Care Activity Detail Author Start: 05-04-2025 Medicare Annual Wellness (AWV) Medicare Annual Wellness (AWV) [facility] Start: 05-04-2025 End: 05-04-2025 Patient encounter procedure 05/04/2025 8:30 AM EST Office Visit [facility] [address] [facility] [address] [place] [id number] Scott Tai MD [address] [facility] [address] [place] [address] [facility] Start: 01-12-2025 Medicare Annual Wellness (AWV) Medicare Annual Wellness (AWV) [facility] Start: 05-04-2024 End: 05-04-2025 Prostate specific Ag [Mass/volume] in Serum or Plasma PSA Lab Routine Elevated PSA Expected: 05/04/2024 (Approximate), Expires: 05/04/2025 [facility] Work Phone: Comment on above: Expected: 05/04/2024 (Approximate), Expires: 05/04/2025 Start: 05-04-2024 End: 05-04-2024 Patient encounter procedure [facility] Comment on above: Arrived Start: 01-13-2024 End: 01-12-2025 Comprehensive metabolic 2000 panel - Serum or Plasma Comprehensive metabolic panel Lab Routine Atherosclerosis of [place] coronary artery of [place] heart without angina pectoris (CMS/HCC) Stage 3a chronic kidney disease (HCC) ([facility]/HCC) Expected: 01/13/2024 (Approximate), Expires: 01/12/2025 [facility] Comment on above: Expected: 01/13/2024 (Approximate), Expires: 01/12/2025 Start: 01-13-2024 End: 01-12-2025 Lipid 1996 panel - Serum or Plasma Lipid panel Lab Routine Atherosclerosis of [place] coronary artery of [place] heart without angina pectoris ([facility]/HCC) Mixed hyperlipidemia (CMS/HCC) Expected: 01/13/2024 (Approximate), Expires: 01/12/2025 [facility] Comment on above: Expected: 01/13/2024 (Approximate), Expires: 01/12/2025 Start: 01-13-2024 End: 01-13-2024 Patient encounter procedure 01/13/2024 8:30 AM EDT Office Visit [facility] [address] [facility] [address] [place] [address] Scott Tai MD [address] [place] [address] [place] [address] Arrived [facility] Comment on above: Arrived Start: 01-09-2024 Medicare Annual Wellness (AWV) Medicare Annual Wellness (AWV) [facility] Start: 09-16-2023 End: 09-16-2023 Patient encounter procedure 09/16/2023 8:30 AM EDT Office Visit [facility] [address] [place] [address] [place] [address] Scott Tai MD [address] [facility] [address] [place] [address] [facility] Start: 07-03-2023 End: 07-03-2023 Patient encounter procedure 07/03/2023 9:30 AM EDT Office Visit [facility] [address] [place] [address] [place] [address] Scott Tai MD [address] [place] [address] [place] [address] [facility] Start: 05-27-2023 End: 05-27-2023 Patient encounter procedure 05/27/2023 3:30 PM EST Office Visit [facility] [address] [facility] [address] [place] [id number] Scott Tai MD [address] [facility] [address] [place] [address] Arrived [facility] Comment on above: Arrived CBC W Auto Different ial panel - Blood CBC and differential Lab Routine Atherosclerosis of [place] coronary artery of [place] heart without angina pectoris ([facility]/HCC) Stage 3a chronic kidney disease (HCC) ([facility]/HCC) Ordered: 01/13/2024 [facility] Work Phone: Comment on above: Ordered: 01/13/2024 Immunizations Immunization Date Immunization Notes Care Provider Fa cility 05-21-2018 zoster vaccine recombinant Scott Tai MD Work Phone: [facility] 10-13-2017 tetanus toxoid, redu zuleika diphtheria toxoid, and acellular pertussis vaccine, adsorbed Scott Tai MD Work Phone: [facility] 10-28-2012 zoster vaccine, live Scott Tai MD Work Phone: [facility] Payers Date Payer Category Payer Unknown 2024 Unknown [id number] 2017 Medicare ANTHEM MEDICARE ADVANTAGE ANTHEM MEDICARE ADVANTAGE [id number] 2017-Present [address] [place] [address] [id number] 2017 Medicare (Managed Care) [facility] [id number] 1959 Unknown [id number] 1942 Unknown [id number] 2.16.840.1.579511.3.579. 2.647 1942 Unknown [id number] 2.16.840.1.677937.3.579. 2.647 1942 Unknown [id number] 2.16.840.1.617232.3.579. 2.59 1942 Unknown [id number] 2.16.840.1.486202.3.579. 2.593 1942 Unknown [id number] 2.16.840.1.157631.3.579. 2.593 1942 Unknown [id number] 2.16.840.1.211535.3.579. 2.1258 1942 Unknown [id number] 2.16.840.1.883966.3.579. 2.1259 1942 Unknown [id number] 2.16.840.1.075324.3.579. 2.125 1942 Unknown [id number] 2.16.840.1.660840.3.579. 2.1259 1942 Unknown [id number] 2.16.840.1.136069.3.579. 2.125 1942 Unknown [id number] 2.16.840.1.506885.3.579. 2.125 1942 Unknown [id number] 2.16.840.1.220289.3.579. 2.727 1942 Unknown [id number] 2.16.840.1.595097.3.579. 2.727 1942 Unknown [id number] 2.16.840.1.265721.3.579. 2.727 1942 Unknown [id number] 2.16.840.1.971769.3.579. 2.727 1942 Unknown [id number] 2.16.840.1.350401.3.579. 2.72 1942 Unknown [id number] 2.16.840.1.879045.3.579. 2.727 1942 Unknown [id number] 2.16.840.1.319080.3.579. 2.727 1942 Unknown [id number] 2.16.840.1.983521.3.579. 2.727 Social History Date Type Detail Facility Start: 12-02-2022 End: 05-04-2024 Sex Assigned At [facility] Start: 10-23-2022 Tobacco smoking status [facility] Never smoked tobacco [facility] Start: 10-23-2022 [...] intake : 1-2 cups per day coffee [facility] Start: 1940 Sex Assigned At Not on file [facility] Tobacco smoking status [facility] Start: 07-09-2018 Sex Male (finding) Trevor Black [facility] Functional Status Date Assessment Result Facility 08-31-2024 Functional Status No [facility] Clinical Notes 04-22-2022 to 09-02-2024 Note Date & Type Note Facility 09-02-2024 Evaluation + Plan note Extrac mechelle from: Title:Discharge Note Author:KEVIN TEQUILAP-BC, Re nee Date:09/02/24 Hemodynamically stable condi tion Discharge To, Anticipated II - Home with responsible caregiver Discharged to - Home independently Discharge Status: Improved Discharge Instructions Given: To patient Discharge disposition: Home Prescriptions reviewed with Patient 64 minutes spent in discharge time with patient, [facility] cardiology office, GI, patient's granddaughter, reviewing d/c med rec, collaborating MD, nursing staff, CRM, Discharge Diet(s): Regular, Fat Modified- Low cholesterol, Low Sodium- 2000 mg (09/02/24 08:42:00) Prescriptions aspirin 81 mg Oral EC Tab, 81 mg= 1 tab(s), Oral, Daily Carafate 1 gram Tab, 1 gm= 1 tab(s), Oral, QID Hepatic panel, CBC, [address] Tab, 40 mg= 1 tab(s), Oral, BID Stool Hpylori antigen, 0 Home atorvastatin 40 mg Tab, 80 mg= 2 tab(s) carvedilol 6.25 mg Tab, 6.25 mg= 1 tab(s), BID clopidogrel 75 mg Tab, 75 mg= 1 tab(s), Oral, Daily isosorbide mononitrate 30 mg ER Tab lisinopril 20 mg Tab, 20 mg= 1 tab(s), Oral, Daily magnesium oxide 400 mg Tab, 800 mg= 2 tab(s), Oral, Still taking, not as prescribed: patient takes 840 mg daily With When Contact Information EARL GUZMAN 09/05/2024 09:45 AM EDT Additional Instructions: Appointment has already been scheduled - go to [facility] Within 1 to 2 weeks [address], [address] [phone] Business (1) Additional Instructions: SCOTT TAI Within 1 to 2 days [address] [place] [address]- Business (1) Additional Instructions: Esophagitis Gastritis, Adult Hiatal Hernia Extracted from: Title:ANES Post-operative Note - General Author: Don Gentile Jr., DO Date:09/01/24 Plan Transfer/Discharge: Transfer/Discharge Discharge when meets criteria ( From PACU to Ambulatory Surgery Unit, and To home ). Extracted from: Title:ANES Pre-operative Note - Endo Author:Don Márquez Jr., DO Date:09/01/24 Plan [place] [employer] Anesthesiologists (ASA) physical status classification: Class III. Anesthetic Preoperative Plan: Anesthesia General, and -TIVA. Extracted from: Title:Inpatient Consultation -Floor Code* Author:Jazmin White MD Date:09/01/24 Impression and Plan Ready this is an 83-year-old gentleman with past medical history of CAD status post CABG, on DAPT, who presented to the hospital from outside facility with dizziness, shortness of breath. He was noted to have acute anemia with hemoglobin down to 6.7. He also reported black tarry stools. He had orthostatic hypotension, otherwise hemodynamically stable this No EGD or colonoscopy in our system, he reports he had EGD and colonoscopy years ago, does not remember if he had any significant findings3 He reports melena started 3 days ago and then slowed down, no melena today Seems hemodynamically stable Last dose of Plavix was 08/31 -N.p.o. -Trend CBC every 6 hours if continues to bleed, daily BMP -Transfuse as needed -Continue IV PPI twice daily -Avoid NSAIDs -Will proceed with EGD -If severe GI bleed please notify me and consult general surgery Extracted from: Title:APSO Note Author:Nely MCNEIL ate:09/01/24 1. UGI bleed (K92.2: Gastroi ntestinal hemorrhage, unspecified) + asa, clopidogrel use -T&S -> transfuse if hgb < 7.0 or symptomatic -1u PRBC to date - last on 09/01 -IVF 1L to date -NPO -IV PPI BID -Consult GI: -09/01: EGD - pending 2. Acute blood loss anemia (D62: Acute posthemorrhagic anemia) 2/2 UGIB -Baseline hgb. level - no recent labs since 2022 -Per prev. provider note 06/2024 hgb was 15.6 at [facility] -Serial H/H q6hrs -Hemocult stool - pending -Hepatic panel - pending -Anemia panel - pending -Avoid heparin products -Trend labs -GI following 3. Hypocalcemia (E83.51: Hypocalcemia) 09/01: Corrected Ca 8.4 -Trend labs 4. CAD (coronary artery disease) (I25.10: Atherosclerotic heart disease of [place] coronary artery without angina pectoris) Hx. of CABG -Hold asa, clopidogrel 2/2 UGIB -Hold lisinopril -Atorvastatin, carvedilol, imdur w/ hold parameters 5. HTN (hypertension), benign (I10: Essential (primary) hypertension) + orthostatic VS on presentation -Cardiac meds as above 6. Dyslipidemia (E78.5: Hyperlipidemia, unspecified) -Statin 7. On deep vein thrombosis (DVT) prophylaxis (Z79.899: Other remote computer terminal operator (current) drug therapy) Avoid chemical DVTp 2/2 UGIB -SCDs, early ambulation Orders: atorvastatin, 80 mg = 2 tab(s), Tab, Oral, Bedtime, Routine, Start date 09/01/24 21:00:00 EDT, 09/01/24 9:56:00 EDT carvedilol, 6.25 mg = 1 tab(s), Tab, Oral, BID, Routine, Start date 09/01/24 21:00:00 EDT, Hold for sbp 110 or less or HR 55 or less, 09/01/24 9:56:00 EDT isosorbide mononitrate, 30 mg = 1 tab(s), Tab-ER, Oral, Daily, Routine, Start date 09/02/24 9:00:00 EDT, Hold for sbp 110 or less, 09/01/24 9:56:00 EDT magnesium oxide, 800 mg = 2 tab(s), Tab, Oral, Daily, Routine, Start date 09/02/24 9:00:00 EDT, 09/01/24 9:56:00 EDT Sodium Chloride 0.9% intravenous solution 1000 mL, 1,000 mL, IV, 75 mL/hr, Routine, Start date 08/31/24 23:23:00 EDT, 13.3 hour(s), Total volume (mL): 1,000, 66.6 kg, 1.73, m2 Albumin Level Communication Order Physician to Nursing Hemoglobin and Hematocrit Hepatic Function Panel NPO Diet Stool Occult Blood -Plan discussed w/ patient, nursing staff and CRM. This report was transcribed using voice recognition software. Every effort was made to ensure accuracy, however, inadvertently computerized supervisor uranium processing mistakes may be present. Extracted from: Title:Admission H & P Author:Nicole Ojeda MD Date:08/31/24 1. UGI bleed (K92.2: Gastroi ntestinal hemorrhage, unspecified) Patient presents with melanotic stools and acute blood loss anemia. No signs of any hemodynamic instability. No hypotension at rest, no tachycardia. Did have positive orthostatic hypotension with standing. Ordered Protonix 40 mg IV every 12 hours N.p.o. for now. Hydrate. Holding aspirin and Plavix Consult GI for EGD 2. Acute blood loss anemia (D62: Acute posthemorrhagic anemia) Due to above. Hemoglobin has dropped from 15.6 in June 2024 to 7.9 at [place]. Ordered a stat H&H now. If hemoglobin less than 7 will transfuse. 3. HTN (hypertension), benign (I10: Essential (primary) hypertension) SBP currently 150s. Would prefer patient run a little on the higher side, then risk hypotension in setting of above. Holding home Coreg, lisinopril 4. CAD (coronary artery disease) (I25.10: Atherosclerotic heart disease of [place] coronary artery without angina pectoris) Holding home aspirin, Lipitor, Coreg, Plavix, Imdur, lisinopril 5. Dyslipidemia (E78.5: Hyperlipidemia, unspecified) Holding statin 6. Hx of CABG (Z95.1: Presence of aortocoronary bypass graft) In 2009 Future Appointments Appointment Date:09/30/2024 09:30:00 AM Scheduled Provider:Jazmin White MD Location:[facility] Appointment Type:[facility] Follow Up Diagnostic Tests Pending * Path. Review 09/01/24 * H. pylori Stool Ag 09/01/24 [facility] 05-16-2025 Hospital Discharge instructions Patient Education 09/02/2024 08:41:58 Esophagitis Esophagitis Esophagitis is inflammation of the esophagus. The esophagus is the tube that carries food from the mouth to the stomach. Esophagitis can cause soreness or pain in the esophagus. This condition can make it difficult and painful to swallow. What are the causes? Most causes of esophagitis are not serious. Common causes of this condition include: Gastroesophageal reflux disease (GERD). This is when stomach contents move back up into the esophagus (reflux). Repeated vomiting. An allergic reaction, especially caused by food allergies (eosinophilic esophagitis). Injury to the esophagus by swallowing large pills with or without water, or swallowing certain types of medicines. Swallowing harmful chemicals, such as household cleaning products. Drinking a lot of alcohol. An infection of the esophagus. This most often occurs in people who have a weakened immune system. Radiation or chemotherapy treatment for cancer. Certain diseases such as sarcoidosis, Crohn's disease, and scleroderma. What are the signs or symptoms? Symptoms of this condition include: Difficult or painful swallowing. Pain with swallowing acidic liquids, such as citrus juices. You may also have pain when you burp. Chest pain and difficulty breathing. Nausea and vomiting. Pain in the abdomen. Weight loss. Ulcers in the mouth and white patches in the mouth (candidiasis). Fever. Coughing up blood or vomiting blood. Stool that is black, tarry, or bright red. How is this diagnosed? This condition may be diagnosed based on your medical history and a physical exam. You may also have other tests, including: A test to examine your esophagus and stomach with a small flexible tube with a camera (endoscopy). A test that measures the acidity level in your esophagus. A test that measures how much pressure is on your esophagus. A barium swallow or modified barium swallow to show the shape, size, and functioning of your esophagus. Allergy tests. How is this treated? Treatment for this condition depends on the cause of your esophagitis. In some cases, steroids or other medicines may be given to help relieve your symptoms or to treat the underlying cause of your condition. You may have to make some lifestyle changes, such as: Avoiding alcohol. Quitting any products that contain nicotine or tobacco. These products include cigarettes, chewing tobacco, and vaping devices, such as e-cigarettes. If you need help quitting, ask your health care provider. Changing your diet. Exercising. Changing your sleep habits and your sleep environment. Follow these instructions at home: Medicines Take mvyj-cxw-sqgyuip and prescription medicines only as told by your health care provider. Do not take aspirin, ibuprofen, or other NSAIDs unless your health care provider told you to do so. If you have trouble taking pills: ?Use a pill splitter to decrease the size of the pill. This will decrease the chance of the pill getting stuck or injuring your esophagus. ?Drink water after you take a pill. Eating and drinking Avoid foods and drinks that seem to make your symptoms worse. Follow a diet as recommended by your health care provider. This may involve avoiding foods and drinks such as: ?Coffee and tea, with or without caffeine. ?Drinks that contain alcohol. ?Energy drinks and sports drinks. ?Carbonated drinks or sodas. ?Chocolate and cocoa. ?Peppermint and mint flavorings. ?Garlic and onions. ?Horseradish. ?Spicy and acidic foods, including peppers, chili powder, dowd powder, vinegar, hot sauces, and barbecue sauce. ?Baca fruit juices and citrus fruits, such as oranges, aure, and limes. ?Tomato-based foods, such as red sauce, chili, salsa, and pizza with red sauce. ?Fried and fatty foods, such as donuts, maltese fries, potato chips, and high-fat dressings. ?High-fat meats, such as hot dogs and fatty cuts of red and white meats, such as rib eye steak, sausage, ham, and navarro. ?High-fat dairy items, such as whole milk, butter, and cream cheese. Lifestyle Eat small, frequent meals instead of large meals. Avoid drinking large amounts of liquid with your meals. Avoid eating meals during the 2 3 hours before bedtime. Avoid lying down right after you eat. Do not exercise right after you eat. Do not use any products that contain nicotine or tobacco. These products include cigarettes, chewing tobacco, and vaping devices, such as e-cigarettes. If you need help quitting, ask your health careprovider. General instructions Pay attention to any changes in your symptoms. Let your health care provider know about them. Wear loose-fitting clothing. Do not wear anything tight around your waist that causes pressure on your abdomen. Raise (elevate) the head of your bed about 6 inches (15 cm). You may need to use a wedge to do this. Try relaxation strategies such as yoga, deep breathing, or meditation to manage stress. If you needhelp reducing stress, ask your health care provider. If you are overweight, reduce your weight to an amount that is healthy for you. Ask your health care provider for guidance about a safe weight loss goal. Keep all follow-up visits. This is important. Contact a health care provider if: You have new symptoms. You have unexplained weight loss. You have difficulty swallowing, or it hurts to swallow. You have wheezing or a cough that does not go away. Your symptoms do not improve with treatment. You have frequent heartburn for more than two weeks. Get help right away if: You have sudden severe pain in your arms, neck, jaw, teeth, or back. You suddenly feel sweaty, dizzy, or light-headed. You have chest pain or shortness of breath. You vomit and the vomit is green, yellow, or black, or it looks like blood or coffee grounds. Your stool is red, bloody, or black. You have a fever. You cannot swallow, drink, or eat. These symptoms may represent a serious problem that is an emergency. Do not wait to see if the symptoms will go away. Get medical help right away. Call your local emergency services (911 in the [place] Do not drive yourself to the hospital. Summary Esophagitis is inflammation of the esophagus. Most causes of esophagitis are not serious. Follow your health care provider's instructions about eating and drinking. Contact a health care provider if you have new symptoms, have weight loss, or coughing that does not stop. Get help right away if you have severe pain in the arms, neck, jaw, teeth, or back, or if you have chest pain, shortness of breath, or fever. This information is not intended to replace advice given to you by your health care provider. Make sure you discuss any questions you have with your health care provider. Document Revised: 10/15/2020 Document Reviewed: 10/15/2020 [employer] Patient Education 2023 [employer]. 09/02/2024 08:41:58 Gastritis, Adult Gastritis, Adult Gastritis is inflammation of the stomach. There are two kinds of gastritis: Acute gastritis. This kind develops suddenly. Chronic gastritis. This kind is much more common. It develops slowly and lasts for a long time. Gastritis happens when the lining of the stomach becomes weak or gets damaged. Without treatment, gastritis can lead to stomach bleeding and ulcers. What are the causes? This condition may be caused by: An infection. Drinking too much alcohol. Certain medicines. These include steroids, antibiotics, and some cpdx-glm-yplfztn medicines, such as aspirin or ibuprofen. Having too much acid in the stomach. Having a disease of the stomach. Other causes may include: An allergic reaction. Some cancer treatments (radiation). Smoking cigarettes or the use of products that contain nicotine or tobacco. In some cases, the cause of this condition is not known. What increases the risk? Having a disease of the intestines. Having a disease in which the body's immune system attacks the body (autoimmune disease), such as Crohn's disease. Using aspirin or ibuprofen and other NSAIDs to treat other conditions, such as heart disease or chronic pain. Stress. What are the signs or symptoms? Symptoms of this condition include: Pain or a burning sensation in the upper abdomen. Nausea. Vomiting. An uncomfortable feeling of fullness after eating. Weight loss. Bad breath. Blood in your vomit or stool (feces). In some cases, there are no symptoms. How is this diagnosed? This condition may be diagnosed based on your medical history, a physical exam, and tests. Tests may include: Your medical history and a description of your symptoms. A physical exam. Tests. These can include: ?Blood tests. ?Stool tests. ?A test in which a thin, flexible instrument with a light and a camera is passed down the esophagusand into the stomach (upper endoscopy). ?A test in which a tissue sample is removed to look at it under a microscope (biopsy). How is this treated? This condition may be treated with medicines. The medicines that are used vary depending on the cause of the gastritis. If the condition is caused by a bacterial infection, you may be given antibiotic medicines. If the condition is caused by too much acid in the stomach, you may be given medicines called H2 blockers, proton pump inhibitors, or antacids. Treatment may also involve stopping the use of certain medicines such as aspirin or ibuprofen and other NSAIDs. Follow these instructions at home: Medicines Take imbt-rwy-uqhexky and prescription medicines only as told by your health care provider. If you were prescribed an antibiotic medicine, take it as told by your health care provider. Do notstop taking the antibiotic even if you start to feel better. Alcohol use Do not drink alcohol if: ?Your health care provider tells you not to drink. ?You are , may be , or are planning to become . If you drink alcohol: ?Limit your use to: ?0 1 drink a day for women. ?0 2 drinks a day for men. ?Know how much alcohol is in your drink. In the [place] one drink equals one 12 oz bottle of beer (355 mL), one 5 oz glass of wine (148 mL), or one 1 oz glass of hard liquor (44 mL). General instructions Eat small, frequent meals instead of large meals. Avoid foods and drinks that make your symptoms worse. Talk with your health care provider about ways to manage stress, such as getting regular exercise or practicing deep breathing, meditation, or yoga. Do not use any products that contain nicotine or tobacco. These products include cigarettes, chewing tobacco, and vaping devices, such as e-cigarettes. If you need help quitting, ask your health careprovider. Drink enough fluid to keep your urine pale yellow. Keep all follow-up visits. This is important. Contact a health care provider if: Your symptoms get worse. Your abdominal pain gets worse. Your symptoms return after treatment. You have a fever. Get help right away if: You vomit blood or a substance that looks like coffee grounds. You have black or dark red stools. You are unable to keep fluids down. These symptoms may represent a serious problem that is an emergency. Do not wait to see if the symptoms will go away. Get medical help right away. Call your local emergency services (911 in the [place] Do not drive yourself to the hospital. Summary Gastritis is inflammation of the lining of the stomach that can occur suddenly (acute) or develop slowly over time (chronic). This condition is diagnosed with a medical history, a physical exam, or tests. This condition may be treated with medicines to treat infection or medicines to reduce the amount of acid in your stomach. Follow your health care provider's instructions about taking medicines, making changes to your diet, and knowing when to call for help. This information is not intended to replace advice given to you by your health care provider. Make sure you discuss any questions you have with your health care provider. Document Revised: 08/10/2021 Document Reviewed: 08/10/2021 [employer] Patient Education 2023 [employer]. 09/02/2024 08:41:58 Hiatal Hernia Hiatal Hernia A hiatal hernia occurs when part of the stomach slides above the muscle that separates the abdomen from the chest (diaphragm). A person can be born with a hiatal hernia (congenital), or it may develop over time. In almost all cases of hiatal hernia, only the top part of the stomach pushes through the diaphragm. Many people have a hiatal hernia with no symptoms. The larger the hernia, the more likely it is that you will have symptoms. In some cases, a hiatal hernia allows stomach acid to flow back into the tube that carries food from your mouth to your stomach (esophagus). This may cause heartburn symptoms. The development of heartburn symptoms may mean that you have a condition called gastroesophageal reflux disease (GERD). What are the causes? This condition is caused by a weakness in the opening (hiatus) where the esophagus passes through the diaphragm to attach to the upper part of the stomach. A person may be born with a weakness in thehiatus, or a weakness can develop over time. What increases the risk? This condition is more likely to develop in: Older people. Age is a major risk factor for a hiatal hernia, especially if you are over the age of50. women. People who are overweight. People who have frequent constipation. What are the signs or symptoms? Symptoms of this condition usually develop in the form of GERD symptoms. Symptoms include: Heartburn. Upset stomach (indigestion). Trouble swallowing. Coughing or wheezing. Wheezing is making high-pitched whistling sounds when you breathe. Sore throat. Chest pain. Nausea and vomiting. How is this diagnosed? This condition may be diagnosed during testing for GERD. Tests that may be done include: X-rays of your stomach or chest. An upper gastrointestinal (GI) series. This is an X-ray exam of your GI tract that is taken after you swallow a chalky liquid that shows up clearly on the X-ray. Endoscopy. This is a procedure to look into your stomach using a thin, flexible tube that has a tiny camera and light on the end of it. How is this treated? This condition may be treated by: Dietary and lifestyle changes to help reduce GERD symptoms. Medicines. These may include: ?Vsur-ddk-noebcxi antacids. ?Medicines that make your stomach empty more quickly. ?Medicines that block the production of stomach acid (H2 blockers). ?Stronger medicines to reduce stomach acid (proton pump inhibitors). Surgery to repair the hernia, if other treatments are not helping. If you have no symptoms, you may not need treatment. Follow these instructions at home: Lifestyle and activity Do not use any products that contain nicotine or tobacco. These products include cigarettes, chewing tobacco, and vaping devices, such as e-cigarettes. If you need help quitting, ask your health careprovider. Try to achieve and maintain a healthy body weight. Avoid putting pressure on your abdomen. Anything that puts pressure on your abdomen increases the amount of acid that may be pushed up into your esophagus. ?Avoid bending over, especially after eating. ?Raise the head of your bed by putting blocks under the legs. This keeps your head and esophagus higher than your stomach. ?Do not wear tight clothing around your chest or stomach. ?Try not to strain when having a bowel movement, when urinating, or when lifting heavy objects. Eating and drinking Avoid foods that can worsen GERD symptoms. These may include: ?Fatty foods, like fried foods. ?Baca fruits, like oranges or lemon. ?Other foods and drinks that contain acid, like orange juice or tomatoes. ?Spicy food. ?Chocolate. Eat frequent small meals instead of three large meals a day. This helps prevent your stomach from getting too full. ?Eat slowly. ?Do not lie down right after eating. ?Do not eat 1 2 hours before bed. Do not drink beverages with caffeine. These include cola, coffee, cocoa, and tea. Do not drink alcohol. General instructions Take zwjf-paw-bwblhfw and prescription medicines only as told by your health care provider. Keep all follow-up visits. Your health care provider will want to check that any new prescribed medicines are helping your symptoms. Contact a health care provider if: Your symptoms are not controlled with medicines or lifestyle changes. You are having trouble swallowing. You have coughing or wheezing that will not go away. Your pain is getting worse. Your pain spreads to your arms, neck, jaw, teeth, or back. You feel nauseous or you vomit. Get help right away if: You have shortness of breath. You vomit blood. You have bright red blood in your stools. You have black, tarry stools. These symptoms may be an emergency. Get help right away. Call 911. Do not wait to see if the symptoms will go away. Do not drive yourself to the hospital. Summary A hiatal hernia occurs when part of the stomach slides above the muscle that separates the abdomen from the chest. A person may be born with a weakness in the hiatus, or a weakness can develop over time. Symptoms of a hiatal hernia may include heartburn, trouble swallowing, or sore throat. Management of a hiatal hernia includes eating frequent small meals instead of three large meals a day. Get help right away if you vomit blood, have bright red blood in your stools, or have black, tarry stools. This information is not intended to replace advice given to you by your health care provider. Make sure you discuss any questions you have with your health care provider. Document Revised: 06/03/2022 Document Reviewed: 06/03/2022 [employer] Patient Education 2023 [employer]. Follow Up Care 08/31/2024 17:41:30 With:Jazmin White Address: [address] [facility], [facility] [address] [phone]- [phone] Business (1) When:09/30/2024 09:30:00 With:SCOTT TAI Address: [address] [place] [address]- Business (1) When:1 to 2 days Comments:Call for followup appointment With:EARL GUZMAN Address:Unknown When:09/05/2024 09:45:00 Comments:Appointment has already been scheduled - go to [facility] 05-16-2025 NoteDischarge Summary Admission and Discharge Information Admit Date/Time:08/31/2024 20:04 Admitting Physician - Nicole Ojeda MD Consulting Physician - Mouchli MD, Mohamad A. Admitting Diagnoses: 1. UGI bleed, 08/31/2024 2. Acute blood loss anemia, 08/31/2024 Discharge Order Date Discharge Patient - Ordered -- 09/02/24 9:17:00 EDT, To home w/ f/u appts as written. Discharge Diagnoses 1. UGI bleed, 08/31/2024 2. Acute blood loss anemia, 08/31/2024 3. Hypocalcemia, 09/01/2024 4. CAD (coronary artery disease), 08/31/2024 5. HTN (hypertension), benign, 08/31/2024 6. Dyslipidemia, 08/31/2024 7. On deep vein thrombosis (DVT) prophylaxis, 09/01/2024 Please refer to my progress note for in-depth information regarding each individual diagnosis Hospital Course 83-year-old male with PMH of CAD, CABG, HTN, HLD. - Patient presented from [facility] secondary to concern for dizziness, dyspnea and melanotic stools for GI eval. 1. UGI bleed (K92.2: Gastrointestinal hemorrhage, unspecified) + asa, clopidogrel use + hemmocult stool -1u PRBC to date - last on 09/01 -IVF 1L to date -IV PPI BID - transition to PO Consult GI: -09/01: EGD: -Esophageal landmarks identified, small HH. 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 Normal examined duodenum otherwise GI recs: -ADAT - If possible hold Plavix for few more days and then resume if no signs of GI bleeding - -Stool H. pylori antigen, treat if positive - rx. provided w/ sample container, pt. instructed to collect sample and drop off to lab -- Avoid NSAIDs -- Continue PPI twice daily -- Follow-up in GI clinic in 1 to 2 weeks -- Repeat EGD in 3 months to ensure esophagitis healing -Case reviewed with Dr. White this a.m. with review of labs, patient is appropriate for dischargefrom GI standpoint with OP clinic f/u. -Pt. denies any home going needs from PT/OT/HHC/paramed 2. Acute blood loss anemia (D62: Acute posthemorrhagic anemia) 2/2 UGIB 2/2 duodenal ulcers -Baseline hgb. level - no recent labs since 2022 -Per prev. provider note 06/2024 hgb was 15.6 at [place] -Anemia panel - results to PCP office 3. Hypocalcemia (E83.51: Hypocalcemia) 09/01: Corrected Ca 8.4 -Trend labs 4. CAD (coronary artery disease) (I25.10: Atherosclerotic heart disease of [place] coronary artery without angina pectoris) Hx. of CABG -Hold asa, clopidogrel 2/2 UGIB -Pt. primary animal laboratory helper Dr. Pozo no longer w/ [facility], I spoke w/ Angelika Mckay on behalf of Dr. Ashley who is assuming care w/ review of GIB and request to hold clopidogrel until 09/05 - she isagreeable and pt. has a f/u appt w/ them on 09/05 to further review med regimen, -Resume lisinopril at [facility] as Cr is stable - w/ hold parameters given -Atorvastatin, carvedilol, imdur w/ hold parameters 5. HTN (hypertension), benign (I10: Essential (primary) hypertension) + orthostatic VS on presentation -Cardiac meds as above 6. Dyslipidemia (E78.5: Hyperlipidemia, unspecified) -Mild elevation in Direct/Total bili, reviewed w/ GI, repeat labs on 09/05 w/ results to GI and PCP -Statin -Patient states that all admitting symptoms have significantly improved and/or resolved. Patient iseating and drinking without complaints, denies being SOB, chest pain, pressure, palpitations or difficulty with voiding. Patient is eager to be discharged to home to the care of family. --Other chronic medical conditions as outlined in note. Refer to d/c plan below: -Case reviewed and discussed with Dr. Deluca who is in agreement with current d/c plan. Case will be reviewed and discussed with Dr. Tai PCP or regional account executive MD once the hospital screed operator is able to reach him/her. I spent a lengthy amount of time with the patient and granddgt with shared decision making regarding discharge, education provided (teach back method) reviewing discharge instructions, reviewed discharge medications rec for accuracy, medication use. Patient to follow-up with PCP and specialty providers as scheduled on discharge. Patient being discharged in medically/hemodynamically stable cond. with instructions to return to the hospital if symptoms worsen or recur. This report was transcribed using voice recognition software. Every effort was made to ensure accuracy, however, inadvertently computerized supervisor uranium processing mistakes may be present. Significant Findings No qualifying data available. Services Consulted - Completed -- 08/31/24 23:03:02 EDT Consult to GI - Ordered -- 08/31/24 23:23:00 EDT, UGI bleed, acute blood loss anemia, Consult and Co-manage Physical Exam Vitals & Measurements T: 36.9 ???C(Axillary) TMIN: 36.3 ???C(Oral) TMAX: 36.9 ???C(Oral) HR: 87(Monitore (more content not included)...[facility] SystemComment [facility]:Result Comment: Electronically Signed By: Nely MCNEIL\.br\Date and Time Signed: 09/02/24 09:22 EDT\.br\Electronically Co-Signed By: Fritz Deluca DO\.br\Date and Time Co-Signed: 09/02/24 10:06 [id number] Note Progress Note-Physician Assessment/Plan 1. UGI bleed (K92.2: Gastrointestinal hemorrhage, unspecified) + asa, clopidogrel use -T&S -> transfuse if hgb < 7.0 or symptomatic -1u PRBC to date - last on 09/01 -IVF 1L to date -NPO -IV PPI BID -Consult GI: -09/01: EGD - pending 2. Acute blood loss anemia (D62: Acute posthemorrhagic anemia) 2/ UGIB -Baseline hgb. level - no recent labs since 2022 -Per prev. provider note 06/2024 hgb was 15.6 at [place] -Serial H/H q6hrs -Hemocult stool - pending -Hepatic panel - pending -Anemia panel - pending -Avoid heparin products -Trend labs -GI following 3. Hypocalcemia (E83.51: Hypocalcemia) 09/01: Corrected Ca 8.4 -Trend labs 4. CAD (coronary artery disease) (I25.10: Atherosclerotic heart disease of [place] coronary artery without angina pectoris) Hx. of CABG -Hold asa, clopidogrel 2/2 UGIB -Hold lisinopril -Atorvastatin, carvedilol, imdur w/ hold parameters 5. HTN (hypertension), benign (I10: Essential (primary) hypertension) + orthostatic VS on presentation -Cardiac meds as above 6. Dyslipidemia (E78.5: Hyperlipidemia, unspecified) -Statin 7. On deep vein thrombosis (DVT) prophylaxis (Z79.899: Other group home (current) drug therapy) Avoid chemical DVTp 2/2 UGIB -SCDs, early ambulation Orders: atorvastatin, 80 mg = 2 tab(s), Tab, Oral, Bedtime, Routine, Start date 09/01/24 21:00:00 EDT, 09/01/24 9:56:00 EDT carvedilol, 6.25 mg = 1 tab(s), Tab, Oral, BID, Routine, Start date 09/01/24 21:00:00 EDT, Hold forsbp 110 or less or HR 55 or less, 09/01/24 9:56:00 EDT isosorbide mononitrate, 30 mg = 1 tab(s), Tab-ER, Oral, Daily, Routine, Start date 09/02/24 9:00:00EDT, Hold for sbp 110 or less, 09/01/24 9:56:00 EDT magnesium oxide, 800 mg = 2 tab(s), Tab, Oral, Daily, Routine, Start date 09/02/24 9:00:00 EDT, 09/01/24 9:56:00 EDT Sodium Chloride 0.9% intravenous solution 1000 mL, 1,000 mL, IV, 75 mL/hr, Routine, Start date 08/31/24 23:23:00 EDT, 13.3 hour(s), Total volume (mL): 1,000, 66.6 kg, 1.73, m2 Albumin Level Communication Order Physician to Nursing Hemoglobin and Hematocrit Hepatic Function Panel NPO Diet Stool Occult Blood -Plan discussed w/ patient, nursing staff and CRM. This report was transcribed using voice recognition software. Every effort was made to ensure accuracy, however, inadvertently computerized supervisor uranium processing mistakes may be present. Subjective No acute events overnight. Patient states black tarry/pasty stool prior to admission. Denies any new complaints this a.m. He denies CP, pressure, palpitations, N/V, SOB or paresthesia. Review of Systems Constitutional: + Pale, malaise, fatigue Respiratory: Negative Cardiovascular: Negative. Gastrointestinal: Denies abd pain. Passing flatus. Last BM: 08/31 Genitourinary: Black tarry stools Musculoskeletal: Positive generalized weakness Integumentary: Ecchymotic areas in various stages of healing Additional ROS info: Except as noted in the above Review of Systems and in the History of Present Illness all other systems have been reviewed and are negative or noncontributory Objective Vitals & Measurements T: 36.7 ???C(Oral) TMIN: 36.2 ???C(Oral) TMAX: 36.8 ???C(Oral) HR: 78(Peripheral) RR: 16 BP: 147/66SpO2: 99% HT: 162.56 cm WT: 66.6 kg Intake & Output This visit (24 hour periods starting at 07:00 EDT) 09/01/24 * 08/31/24 08/30/24 Total Summary Intake mL -- 10 -- Output mL -- -- -- Fluid Balance -- 10 -- Intake (1) pantoprazole mL -- 10 -- Total -- 10 -- Output (0) Counts (0) * This column has not completed the indicated time period. Physical Exam General: Calm, able to communicate needs, NAD, pale Head: Normocephalic/atraumatic Eyes: Pupils equal, round, Conjunctivae and sclerae normal, HEENT: Mucous membrane moist. Tongue normal, + CROW Neck: Trachea midline, neck supple, Chest: No chest wall deformity, no chest wall tenderness Lungs: CTA aggarwal, no cough/wheezing Cardio: Normal rate, currently in RSR, no edema. Pulses: Normal capillary refill Abdomen: Soft, non-distended, non-tender, normal BS Musculoskeletal: No deformity or scoliosis noted. Normal ROM for age. Integumentary: Warm, dry, Extremity: No clubbing, Neurologic: Alert, oriented x4, follows commands, Mental status: Pleasant & cooperative, approp. affect, Lab Results WBC: 7.3 E9/L (09/01/24 05:23:00) RBC: 2.3 E12/L Low (09/01/24 05:23:00) HGB: 6.7 gm/dL Critical (09/01/24 05:23:00) Hct: 19.9 % Low (09/01/24 05:23:00) MCV: 85.6 fL (09/01/24 05:23:00) MCH: 29 pg (09/01/24 05:23:00) MCHC: 33.8 gm/dL (09/01/24 05:23:00) RDW: 16.7 % High (09/01/24 05:23:00) Platelet: 189 E9/L (09/01/24 05:23:00) MPV: 8 fL (09/01/24 05:23:00) Neutro Auto: 70.7 % (09/01/24 05:23:00) Lymph Auto: 19.3 % (09/01/24 05:23:00) Gage Auto: 8.6 % (09/01/24 05:23:00) Eos Auto: 0.8 % (09/01/24 05:23:00) Basophil Au (more content not included)...[facility] SystemComment on above:Result Comment: Electronically Signed By: Nely MCNEIL\.br\Date and Time Signed: 09/01/24 10:06 EDT\.br\Electronically Co-Signed By: Fritz Deluca DO\.br\Date and Time Co-Signed: 09/02/24 09:14 [id number] Note Patient Education - Text Gastroenterology Esophagitis Esophagitis is inflammation of the esophagus. The esophagus is the tube that carries food from the mouth to the stomach. Esophagitis can cause soreness or pain in the esophagus. This condition can make it difficult and painful to swallow. What are the causes? Most causes of esophagitis are not serious. Common causes of this condition include: ??? Gastroesophageal reflux disease (GERD). This is when stomach contents move back up into the esophagus (reflux). ??? Repeated vomiting. ??? An allergic reaction, especially caused by food allergies (eosinophilic esophagitis). ??? Injury to the esophagus by swallowing large pills with or without water, or swallowing certain types of medicines. ??? Swallowing harmful chemicals, such as household cleaning products. ??? Drinking a lot of alcohol. ??? An infection of the esophagus. This most often occurs in people who have a weakened immune system. ??? Radiation or chemotherapy treatment for cancer. ??? Certain diseases such as sarcoidosis, Crohn's disease, and scleroderma. What are the signs or symptoms? Symptoms of this condition include: ??? Difficult or painful swallowing. ??? Pain with swallowing acidic liquids, such as citrus juices. You may also have pain when you burp. ??? Chest pain and difficulty breathing. ??? Nausea and vomiting. ??? Pain in the abdomen. ??? Weight loss. ??? Ulcers in the mouth and white patches in the mouth (candidiasis). ??? Fever. ??? Coughing up blood or vomiting blood. ??? Stool that is black, tarry, or bright red. How is this diagnosed? This condition may be diagnosed based on your medical history and a physical exam. You may also have other tests, including: ??? A test to examine your esophagus and stomach with a small flexible tube with a camera (endoscopy). ??? A test that measures the acidity level in your esophagus. ??? A test that measures how much pressure is on your esophagus. ??? A barium swallow or modified barium swallow to show the shape, size, and functioning of your esophagus. ??? Allergy tests. How is this treated? Treatment for this condition depends on the cause of your esophagitis. In some cases, steroids or other medicines may be given to help relieve your symptoms or to treat the underlying cause of your condition. You may have to make some lifestyle changes, such as: ??? Avoiding alcohol. ??? Quitting any products that contain nicotine or tobacco. These products include cigarettes, chewing tobacco, and vaping devices, such as e-cigarettes. If you need help quitting, ask your health care provider. ??? Changing your diet. ??? Exercising. ??? Changing your sleep habits and your sleep environment. Follow these instructions at home: Medicines ??? Take [id number]-[id number] and prescription medicines only as told by your health care provider. ??? Do not take aspirin, ibuprofen, or other NSAIDs unless your health care provider told you to doso. ??? If you have trouble taking pills: ? Use a pill splitter to decrease the size of the pill. This will decrease the chance of the pill getting stuck or injuring your esophagus. ? Drink water after you take a pill. Eating and drinking ??? Avoid foods and drinks that seem to make your symptoms worse. ??? Follow a diet as recommended by your health care provider. This may involve avoiding foods and drinks such as: ? Coffee and tea, with or without caffeine. ? Drinks that contain alcohol. ? Energy drinks and sports drinks. ? Carbonated drinks or sodas. ? Chocolate and cocoa. ? Peppermint and mint flavorings. ? Garlic and onions. ? Horseradish. ? Spicy and acidic foods, including peppers, chili powder, dowd powder, vinegar, hot sauces, and barbecue sauce. ? Baca fruit juices and citrus fruits, such as oranges, aure, and limes. ? Tomato-based foods, such as red sauce, chili, salsa, and pizza with red sauce. ? Fried and fatty foods, such as donuts, maltese fries, potato chips, and high- fat dressings. ? High-fat meats, such as hot dogs and fatty cuts of red and white meats, such as rib eye steak, sausage, ham, and navarro. ? High-fat dairy items, such as whole milk, butter, and cream cheese. Lifestyle ??? Eat small, frequent meals instead of large meals. ??? Avoid drinking large amounts of liquid with your meals. ??? Avoid eating meals during the 2?3 hours before bedtime. ??? Avoid lying down right after you eat. ??? Do not exercise right after you eat. ??? Do not use any products that contain nicotine or tobacco. These products include cigarettes, chewing tobacco, and vaping devices, such as e-cigarettes. If you need help quitting, ask your health care provider. General instructions ??? Pay attention to any changes in your symptoms. Let your health care provider know about them. ? (more content not included)...[facility]05-15-2025 Note Progress Note-Physician Patient: RADHA CABELLO Age: 83 years Sex: Male : 1940 Associated Diagnoses: None Author: Don Gentile Jr., DO Postoperative Information Postoperative disposition: Postoperative disposition: Home. Optimetrix number: Optimetrix number [id number]. Anesthetic utilized: General. Physical Examination Vital Signs 09/01/2024 12:05 EDT SpO2 99 % 09/01/2024 12:05 EDT Heart Rate Monitored 68 bpm 09/01/2024 12:05 EDT Respiratory Rate Monitored 16 br/min 09/01/2024 12:05 EDT Systolic Blood Pressure 105 mmHg Diastolic Blood Pressure 57 mmHg LOW Mean Arterial Pressure, Cuff 73 mmHg 09/01/2024 11:59 EDT SpO2 99 % 09/01/2024 11:59 EDT Respiratory Rate Monitored 12 br/min 09/01/2024 11:59 EDT Heart Rate Monitored 71 bpm 09/01/2024 11:59 EDT Systolic Blood Pressure 96 mmHg Diastolic Blood Pressure 50 mmHg LOW 09/01/2024 11:59 EDT Temperature Temporal Artery 36.9 DegC Blood Pressure Location Left arm Mean Arterial Pressure, Cuff 65 mmHg Pain Assessment: Controlled. General: Awake, Alert, Appropriate. Respiratory: Adequate air exchange, Non-labored. Cardiovascular: Stable, Normal peripheral perfusion. Neurological: Neurologic exam at baseline. No changes.. Assessment Anesthetic outcome No anesthetic complications noted. No nausea/vomiting. Review / Management Condition: Stable. Plan Transfer/Discharge: Transfer/Discharge Discharge when meets criteria ( From PACU to Ambulatory Surgery Unit, and To home ).[facility]:Result Comment: Electronically Signed By: Don Gentile Jr., DO\.br\Date and Time Signed: 09/01/24 13:03 [id number] NoteEndoscopic Procedure Report - Other Patient: RADHA CABELLO Age: 83 years Sex: Male : 1940 Associated Diagnoses: None Author: Jazmin White MD Pre-Procedure Procedure Date 09/01/2024 11:56:00 . Procedure Type: Esophagogastroduodenoscopy. Procedure provider Performed by Jazmin White MD. Current history and physical Documented on chart. Informed Consent After discussing the rationale, risks and benefits, and alternatives to this procedure, the patient provided signed consent for the procedure. Pre-procedure diagnosis: GI bleeding. ASA Classification: Class III. . Monitoring: See anesthesia record. . Procedure The procedure was performed in the hospital. See anesthesia record for sedation given during procedure. The patient was positioned starting in the left lateral decubitus position and with safety measures. Endoscope type used was an adult- size, introduced orally, advanced to the 3rd portion of the duodenum. No difficulty was encountered during the procedure. Views were excellent. The patient tolerated the procedure well. Extent reached: Duodenum third portion Findings 1. Esophageal landmarks identified, small hiatal hernia noted. LA grade B esophagitis noted 2. Significant inflammation through the stomach with mild patchy erythema 3. Multiple clean-based superficial ulcers, Jake class III in the duodenal bulb and duodenal sweep 4. 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 Normal examined duodenum otherwise Images Procedure images: Rec1_hd_video____[id number].jpg Rec1_hd_video___[id number].jpg Rec1_hd_video___[id number].jpg Rec1_hd_video___[id number].jpg Rec1_hd_video___[id number].jpg Rec1_hd_video___22_[id number].jpg Rec1_hd_video___[id number].jpg Rec1_hd_video___56_[id number].jpg Rec1_hd_video___[id number].jpg Rec1_hd_video____18_[id number].jpg Rec1_hd_video____12_[id number].jpg Rec1_hd_video____10_096.jpg Rec1_hd_video____33_136.jpg Rec1_hd_video____29_[id number].jpg . Post-Procedure Complications: none. Estimated blood loss: none. Specimens: none . Devices/ implants: none left in place. Impression and Plan 1. Esophageal landmarks identified, small hiatal hernia noted. LA grade B esophagitis noted 2. Significant inflammation through the stomach with mild patchy erythema 3. Multiple clean-based superficial ulcers, Jake class III in the duodenal bulb and duodenal sweep 4. 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 Normal examined duodenum otherwise Recommendation - Advance diet as tolerated - If possible hold Plavix for few more days and then resume if no signs of GI bleeding - Stool H. pylori antigen, treat if positive - Avoid NSAIDs - Continue PPI twice daily - Follow-up in GI clinic in 1 to 2 weeks - Repeat EGD in 3 months to ensure esophagitis healingMount Carmel Health SystemComment on above:Result Comment: Electronically Signed By: Cindy KABA, Jazmin Colby\.br\Date and Time Signed: 09/01/24 11:59 EDTOther Comment: Missing Attachment - attachment storage system not supported [id number] Can be viewed in source system Missing Attachment - attachment storage system not supported [id number] Can be viewed in source systemMissing Attachment - attachment storage system not supported [id number] Can be viewed in source systemMissing Attachment - attachment storage system not supported [id number] Can be viewed in source systemMissing Attachment - attachment storage system not supported [id number] Can be viewed in source systemMissing Attachment - attachment storage system not supported [id number] Can be viewed in source systemMissing Attachment - attachment storage system not supported [id number] Can be viewed in source systemMissing Attachment - attachment storage system not supported [id number] Can be viewed in source system Missing Attachment - attachment storage system not supported [id number] Can be viewed in source systemMissing Attachment - attachment storage system not supported [id number] Can be viewed in source systemMissing Attachment - attachment storage system not supported [id number] Can be viewed in source systemMissing Attachment - attachment storage system not supported [id number] Can be viewed in source systemMissing Attachment - attachment storage system not supported [id number] Can be viewed in source systemMissing Attachment - attachment storage system not supported [id number] Can be viewed in source [id number] Note Consultation Note Patient: RADHA CABELLO Age: 83 years Sex: Male : 1940 Associated Diagnoses: None Author: Cindy KABA, Jazmin Colby Basic Information Anemia History of Present Illness Ready this is an 83-year-old gentleman with past medical history of CAD status post CABG, on DAPT, who presented to the hospital from outside facility with dizziness, shortness of breath. He was noted to have acute anemia with hemoglobin down to 6.7. He also reported black tarry stools. He had orthostatic hypotension, otherwise hemodynamically stable this No EGD or colonoscopy in our system Health Status Current medications: (Selected) Inpatient Medications Ordered NS 1000 mL Soln-IV 1000 mL: 1,000 mL, IV, 75 mL/hr, Routine, Start date 08/31/24 23:23:00 EDT, 13.3hour(s), Total volume (mL): 1,000, 66.6 kg, 1.73, m2 Sodium Chloride 0.9% IV Elena 1000 mL 1,000 mL: 1,000 mL, IV, 20 mL/hr, Routine, Start date 09/01/24 10:30:00 EDT, 50 hour(s), Total volume (mL): 1,000, 66.6 kg, 1.73, m2 Sodium Chloride 0.9% IV Elena 250 mL bag 250 mL: 250 mL, IV, 20 mL/hr, Other (see comment), Routine, Start date 09/01/24 6:15:00 EDT, 12.5 hour(s), Total volume (mL): 250, 66.6 kg, 1.73, m2 Zofran 4 mg/2 mL Injection: 4 mg = 2 mL, Injection, IV Push, q6hr PRN Nausea, Routine, Start date 08/31/24 23:23:00 EDT, 08/31/24 23:23:00 EDT acetaminophen additive + Generic Diluent 100 mL: 1,000 mg = 100 mL, Soln-IV, IV Piggyback, q6hr PRNPain, Routine, Start date 08/31/24 23:23:00 EDT, 400 mL/hr, Infuse over 15 minute(s) atorvastatin 40 mg Tab: 80 mg = 2 tab(s), Tab, Oral, Bedtime, Routine, Start date 09/01/24 21:00:00EDT, 09/01/24 9:56:00 EDT carvedilol 6.25 mg Tab: 6.25 mg = 1 tab(s), Tab, Oral, BID, Routine, Start date 09/01/24 21:00:00 EDT, Hold for sbp 110 or less or HR 55 or less, 09/01/24 9:56:00 EDT isosorbide mononitrate 30 mg ER Tab: 30 mg = 1 tab(s), Tab-ER, Oral, Daily, Routine, Start date 09/02/24 9:00:00 EDT, Hold for sbp 110 or less, 09/01/24 9:56:00 EDT magnesium oxide 400 mg Tab: 800 mg = 2 tab(s), Tab, Oral, Daily, Routine, Start date 09/02/24 9:00:00 EDT, 09/01/24 9:56:00 EDT pantoprazole 40 mg IV Inj: 40 mg = 10 mL, Injection, IV Push, q12hr, STAT, Start date 08/31/24 23:23:00 EDT, 08/31/24 23:23:00 EDT Documented Medications Documented aspirin: 81 mg, Oral, Daily, Refills(s) 0 atorvastatin 40 mg Tab: 80 mg = 2 tab(s), TAKE 1 TABLET BY MOUTH EVERYDAY AT BEDTIME carvedilol 6.25 mg Tab: 6.25 mg = 1 tab(s), BID, TAKE 1 TABLET BY MOUTH EVERY MORNING AND EVENING WITH MEALS clopidogrel 75 mg Tab: 75 mg = 1 tab(s), TAKE 1 TABLET BY MOUTH EVERY DAY isosorbide mononitrate 30 mg ER Tab: TAKE 1 TABLET BY MOUTH EVERY DAY lisinopril 20 mg Tab: 20 mg = 1 tab(s), Oral, Daily, TAKE 1 TABLET BY MOUTH EVERY DAY magnesium oxide 400 mg Tab: 800 mg = 2 tab(s), Oral, Refills(s) 0 Physical Examination Vital Signs (last 24 hrs) Last Charted Temp Oral 36.9 DegC (SEPTEMBER 01:) Heart Rate Peripheral 80 bpm (SEPTEMBER 01:) SBP H 152 mmHg (SEPTEMBER 01:) DBP 70 mmHg (SEPTEMBER 01:) Weight 66.6 kg (AUGUST 31 22:51) BMI 25.2 (AUGUST 31 22:51) General: in Nad Abdomen: Soft, NTND Impression and Plan Ready this is an 83-year-old gentleman with past medical history of CAD status post CABG, on DAPT, who presented to the hospital from outside facility with dizziness, shortness of breath. He was noted to have acute anemia with hemoglobin down to 6.7. He also reported black tarry stools. He had orthostatic hypotension, otherwise hemodynamically stable this No EGD or colonoscopy in our system, he reports he had EGD and colonoscopy years ago, does not remember if he had any significantfindings3 He reports melena started 3 days ago and then slowed down, no melena today Seems hemodynamically stable Last dose of Plavix was 08/31 -N.p.o. -Trend CBC every 6 hours if continues to bleed, daily BMP -Transfuse as needed -Continue IV PPI twice daily -Avoid NSAIDs -Will proceed with EGD -If severe GI bleed please notify me and consult general surgeryMount [facility] SystemComment on above:Result Comment: Electronically Signed By: Cindy KABA, Jazmin Colby\.br\Date and Time Signed: 09/01/24 11:50 [id number] Note Progress Note-Physician Patient: RADHA CABELLO Age: 83 years Sex: Male : 1940 Associated Diagnoses: None Author: Don Gentile Jr., DO Preoperative Information Anesthesia history: Patient history: No prior anesthetic problems. Informed consent: Signed by patient. Re-evaluation prior to induction: Initial evaluation reviewed: No significant change. Review of Systems Respiratory: Negative except as documented in history of present illness. Cardiovascular: Negative except as documented in history of present illness. Health Status Allergies: Allergic Reactions (Selected) No Known Allergies, Allergies (1) Active Severity Reaction No Known Allergies None Documented Current medications: (Selected) Inpatient Medications Ordered NS 1000 mL Soln-IV 1000 mL: 1,000 mL, IV, 75 mL/hr, Routine, Start date 08/31/24 23:23:00 EDT, 13.3hour(s), Total volume (mL): 1,000, 66.6 kg, 1.73, m2 Sodium Chloride 0.9% IV Elena 1000 mL 1,000 mL: 1,000 mL, IV, 20 mL/hr, Routine, Start date 09/01/24 10:30:00 EDT, 50 hour(s), Total volume (mL): 1,000, 66.6 kg, 1.73, m2 Sodium Chloride 0.9% IV Elena 250 mL bag 250 mL: 250 mL, IV, 20 mL/hr, Other (see comment), Routine, Start date 09/01/24 6:15:00 EDT, 12.5 hour(s), Total volume (mL): 250, 66.6 kg, 1.73, m2 Zofran 4 mg/2 mL Injection: 4 mg = 2 mL, Injection, IV Push, q6hr PRN Nausea, Routine, Start date 08/31/24 23:23:00 EDT, 08/31/24 23:23:00 EDT acetaminophen additive + Generic Diluent 100 mL: 1,000 mg = 100 mL, Soln-IV, IV Piggyback, q6hr PRNPain, Routine, Start date 08/31/24 23:23:00 EDT, 400 mL/hr, Infuse over 15 minute(s) atorvastatin 40 mg Tab: 80 mg = 2 tab(s), Tab, Oral, Bedtime, Routine, Start date 09/01/24 21:00:00EDT, 09/01/24 9:56:00 EDT carvedilol 6.25 mg Tab: 6.25 mg = 1 tab(s), Tab, Oral, BID, Routine, Start date 09/01/24 21:00:00 EDT, Hold for sbp 110 or less or HR 55 or less, 09/01/24 9:56:00 EDT isosorbide mononitrate 30 mg ER Tab: 30 mg = 1 tab(s), Tab-ER, Oral, Daily, Routine, Start date 09/02/24 9:00:00 EDT, Hold for sbp 110 or less, 09/01/24 9:56:00 EDT magnesium oxide 400 mg Tab: 800 mg = 2 tab(s), Tab, Oral, Daily, Routine, Start date 09/02/24 9:00:00 EDT, 09/01/24 9:56:00 EDT pantoprazole 40 mg IV Inj: 40 mg = 10 mL, Injection, IV Push, q12hr, STAT, Start date 08/31/24 23:23:00 EDT, 08/31/24 23:23:00 EDT Documented Medications Documented aspirin: 81 mg, Oral, Daily, Refills(s) 0 atorvastatin 40 mg Tab: 80 mg = 2 tab(s), TAKE 1 TABLET BY MOUTH EVERYDAY AT BEDTIME carvedilol 6.25 mg Tab: 6.25 mg = 1 tab(s), BID, TAKE 1 TABLET BY MOUTH EVERY MORNING AND EVENING WITH MEALS clopidogrel 75 mg Tab: 75 mg = 1 tab(s), TAKE 1 TABLET BY MOUTH EVERY DAY isosorbide mononitrate 30 mg ER Tab: TAKE 1 TABLET BY MOUTH EVERY DAY lisinopril 20 mg Tab: 20 mg = 1 tab(s), Oral, Daily, TAKE 1 TABLET BY MOUTH EVERY DAY magnesium oxide 400 mg Tab: 800 mg = 2 tab(s), Oral, Refills(s) 0, Home Medications (7) Active aspirin 81 mg, Oral, Daily atorvastatin 40 mg Tab 80 mg = 2 tab(s) carvedilol 6.25 mg Tab 6.25 mg = 1 tab(s), BID clopidogrel 75 mg Tab 75 mg = 1 tab(s) isosorbide mononitrate 30 mg ER Tab lisinopril 20 mg Tab 20 mg = 1 tab(s), Oral, Daily magnesium oxide 400 mg Tab 800 mg = 2 tab(s), Oral , Medications (10) Active Scheduled: (6) atorvastatin 40 mg Tab [F] 80 mg 2 tab(s), Oral, Bedtime carvedilol 6.25 mg Tab [F] 6.25 mg 1 tab(s), Oral, BID isosorbide mononitrate 30 mg ER Tab [F] 30 mg 1 tab(s), Oral, Daily magnesium oxide 400 mg Tab [F] 800 mg 2 tab(s), Oral, Daily pantoprazole 40 mg IV Inj [F] 40 mg 10 mL, IV Push, q12hr Sodium Chloride 0.9% 250 mL 250 mL, IV Continuous: (2) Sodium Chloride 0.9% 1,000 mL 1,000 mL, IV, 20 mL/hr Sodium Chloride 0.9% 1000 mL 1,000 mL, IV, 75 mL/hr PRN: (2) acetaminophen + Generic Diluent 100 mL 1,000 mg 100 mL, IV Piggyback, q6hr ondansetron 2 mg/mL Inj [F] 4 mg 2 mL, IV Push, q6hr Problem list: No problem items selected or recorded. Histories Past Medical History: No active or resolved past medical history items have been selected or recorded. Procedure history: No active procedure history items have been selected or recorded. Social History Social & Psychosocial Habits No Data Available . Physical Examination Vital Signs 09/01/2024 10:17 EDT Temperature Oral 36.9 DegC Peripheral Pulse Rate 80 bpm Respiratory Rate 16 br/min Systolic Blood Pressure 152 mmHg HI Diastolic Blood Pressure 70 mmHg Blood Pressure Location Left arm SpO2 99 % 09/01/2024 9:11 EDT Temperature Oral 36.7 DegC Peripheral Pulse Rate 78 bpm Respiratory Rate 16 br/min Systolic Blood Pressure 147 mmHg HI Diastolic Blood Pressure 66 mmHg Blood Pressure Location Left arm Hourly Rounding Yes SpO2 99 % 09/01/2024 9:00 EDT Hourly Rounding Yes Promise to Return Yes 09/01/2024 8:05 EDT Peripheral Pulse Rate 75 bpm Respiratory Rate 16 br/min Systolic Blood (more content not included)...[facility]:Result Comment: Electronically Signed By: Don Gentile Jr., DO\.br\Date and Time Signed: 09/01/24 10:50 [id number] NoteHistory and Physical Basic Information Admit Date/Time:08/31/2024 20:04 Chief Complaint sob with exertion, dizziness History of Present Illness 83-year-old male with a past medical history of CAD status post CABG on aspirin and Plavix, hypertension, dyslipidemia He presented to [facility] with dizziness and dyspnea on exertion. Noticed the symptoms on Thursday. Also reports melanotic stools. No vomiting or abdominal pain. He denies any prior history of ulcers. He states he does take something for low back pain every night, but he has no idea if it is Tylenol or an NSAID. Workup in [place] [facility] revealed stable blood pressure, no tachycardia. He was orthostatic positive as systolic BP dropped from 130 to 102 with standing. His hemoglobin came back at 7.9 today. Back in June 2024 it was 15.6. Stool occult blood positive. He was given 1 L of IV fluids. Not transfused any blood. Does not appear he was given the Protonix. Transferred to [facility] for further GI management. Review of Systems Constitutional: no fever, no chills, no sweats, no weakness Skin: no jaundice, no rash, no lesions, no petechiae ENMT: no ear pain, no sore throat, no congestion, no hoarseness Respiratory: + shortness of breath w exertion, no cough, no orthopnea, no wheezing Cardiovascular: no chest pain, no palpitations, no edema Gastrointestinal: no nausea, no vomiting, no diarrhea, no abdominal pain Genitourinary: no dysuria, no hematuria Musculoskeletal: no trauma, + chronic low back pain Neurologic: no headache, + dizziness Psychiatric: no depression, no anxiety Heme/Lymph: no bleeding tendency, no bruising tendency Additional ROS info: Except as noted in the above Review of Systems and in the History of Present Illness all other systems have been reviewed and are negative or noncontributory. Scoring Ching Fall Risk Score: 45 High (08/31/24) Physical Exam Vitals & Measurements T: 36.2 ???C(Oral) HR: 81(Peripheral) RR: 16 BP: 150/77 SpO2: 99% HT: 162.56 cm WT: 66.6 kg General: NAD Skin: warm, dry, no rash Head: AT/NC Neck: Trachea midline, supple Eye: normal conjunctiva, sclera clear Cardiovascular: regular rate and rhythm, S1S2, normal peripheral perfusion Respiratory: Lungs CTA, respirations non labored, breath sounds equal, no w/r/r Chest wall: no deformity Gastrointestinal: soft, mild TTP in upper abdominal quadrants, appears distended Extremities: no deformity, no edema Neurological: oriented, LOC appropriate for age, no focal deficits, normal speech Psychiatric: cooperative, affect appropriate for age, good eye contact Lab Results Labs from [place] reviewed. Diagnostic Results CXR negative Assessment/Plan 1. UGI bleed (K92.2: Gastrointestinal hemorrhage, unspecified) Patient presents with melanotic stools and acute blood loss anemia. No signs of any hemodynamic instability. No hypotension at rest, no tachycardia. Did have positive orthostatic hypotension with standing. Ordered Protonix 40 mg IV every 12 hours N.p.o. for now. Hydrate. Holding aspirin and Plavix Consult GI for EGD 2. Acute blood loss anemia (D62: Acute posthemorrhagic anemia) Due to above. Hemoglobin has dropped from 15.6 in June 2024 to 7.9 at [place]. Ordered a stat H&H now. If hemoglobin less than 7 will transfuse. 3. HTN (hypertension), benign (I10: Essential (primary) hypertension) SBP currently 150s. Would prefer patient run a little on the higher side, then risk hypotension in setting of above. Holding home Coreg, lisinopril 4. CAD (coronary artery disease) (I25.10: Atherosclerotic heart disease of [place] coronary artery without angina pectoris) Holding home aspirin, Lipitor, Coreg, Plavix, Imdur, lisinopril 5. Dyslipidemia (E78.5: Hyperlipidemia, unspecified) Holding statin 6. Hx of CABG (Z95.1: Presence of aortocoronary bypass graft) In 2009 Attestation Anticipate >2MN length of stay. Problem List/Past Medical History Ongoing No qualifying data Historical No qualifying data Medications Inpatient acetaminophen additive + Generic Diluent 100 mL NS 1000 mL Soln-IV 1,000 mL, 1000 mL, IV pantoprazole 40 mg IV Inj, 40 mg= 10 mL, IV Push, q12hr Zofran 4 mg/2 mL Injection, 4 mg= 2 mL, IV Push, q6hr, PRN Home aspirin, 81 mg, Oral, Daily atorvastatin 40 mg Tab, 80 mg= 2 tab(s) carvedilol 6.25 mg Tab, 6.25 mg= 1 tab(s), BID clopidogrel 75 mg Tab, 75 mg= 1 tab(s) isosorbide mononitrate 30 mg ER Tab lisinopril 20 mg Tab, 20 mg= 1 tab(s), Oral, Daily magnesium oxide 400 mg Tab, 800 mg= 2 tab(s), Oral, Still taking, not as prescribed: patient takes 840 mg daily Allergies No Known AllergiesMount [facility] SystemComment on above:Result Comment: Electronically Signed By: Rusty KABA, Nicole\.br\Date and Time Signed: 08/31/24 23:41 [id number] History of Present illness Narrative* Debbi Murcia, [employer] - 05/04/2024 8:30 AM EST Images from the original note were not [...] carcinoma Brachial neuralgia CAD (coronary artery disease) ([facility]) Chest pain 11/20/18-11/21/18, 03/20/17 Chest pain 07/01/2020 Electrolyte Imbalance, NSTEMI Coronary atherosclerosis of [place] coronary artery ([facility] [place]) Diverticulosis 12/2019 Heart disease History of being hospitalized 05/22/2023 Hypotension, SRINIVAS History of cholecystectomy 2003 History of echocardiogram 2020 EF 40% Hyperlipemia (CMS/HCC) Hypertension ([facility]) 06/2014 Pancreatitis Past Surgical History: Procedure Laterality Date ANGIOPLASTY APPENDECTOMY 1960 CHOLECYSTECTOMY COLONOSCOPY 2019 CORONARY ARTERY BYPASS GRAFT 2009 [facility] schwann EGD 2019 HERNIA REPAIR 2003 Visit [...] in wrist at this time. Atherosclerosis of [place] coronary artery of [place] heart without angina pectoris (CMS/HCC) This is [...] controlled. Continue with current medications and I willcontinue to monitor. Goal BP remains less than [...] controlled. Continue with current medications and I willcontinue to monitor. Goal BP remains less than 130/80. Ischemic cardiomyopathy (CMS/HCC) Patient's blood pressure is currently well controlled. Continue with current medications and I willcontinue to monitor. Goal BP remains less than [...] No follow-ups on file. documented in this encounterPhelps [id number] NoteCardiology Clinic Note Subjective Radha Cabello is a 83 y.o. [...] 03/20/2017 Patent 3 out (more content not included)...[facility] 01-13-2024 History of Present illness Narrative* Scott Tai MD - 01/13/2024 8:30 AM EDT Images from the original note were not included. Subjective : Chief Complaint: Skip Cabello is an 83 y.o. male here [...] Do you have a medical power of divorce attorney?: Yes Who is your medical power of divorce attorney?: daughter Objective : BP 128/66 Pulse [...] facility ACP (advance care planning) Atherosclerosis of [place] coronary artery of [place] heart without angina pectoris (CMS/HCC) - CBC [...] on January 13, 2024 documented in this encounterPhelps [id number] NoteCardiology Clinic Note Subjective Radha Cabello is a 83 y.o. year old male patient with past medical history of CAD status post CABG, heart failure reduced ejection fraction, hypertension, and hyperlipidemia seen in follow-up. Patient here for 6 mo follow up CAD, HFrEF, hypertension, and hyperlipidemia. He was admitted to [facility] in May 2023 for acute hypotension. [...] normal size and sys (more content not included)...[facility]02-07-2024 History of Present illness Narrative* Scott Tai MD - 05/27/2023 3:30 PM EST HPI Follow-up Additional comments: Went to [facility] ER 05/22/23 was kept for observation dx: hypotension coreg and lisinopril doses decreased and advised to stop spironolactone Last edited by Viviana Martini LPN on 05/27/2023 3:27 PM. Subjective Patient ID: Skip Cabello is a 82 y.o. male who presents for Follow-up (Went to [facility] ER 05/22/23 was kept for observation dx: hypotension coreg and lisinopril doses decreased and advised to stop spironolactone) and Arm Pain. Flowsheet Row Patient Outreach from 05/26/2023 in [facility] with Shu ThursdayDELICIA Discharge Information ED or Hospital Discharge? ED Patient has been contacted within 1 week of being seen in the ED Yes Discharge Date 05/22/23 Discharge Hospital [facility] Discharged To: Home Setting Engagement Call Start [...] nitroglycerin (Nitrostat) 0.4 MG SL tablet pancrelipase, Gkl-Ltmv-Kxlt, (Creon) 35091-28341 units capsule Take by mouth 3 (three) [...] 07/01/2020 Electrolyte Imbalance, NSTEMI Coronary atherosclerosis of [place] coronary artery (CMS/HCC) Diverticulosis 12/2019 Heart disease History of cholecystectomy 2003 History of echocardiogram 2020 EF 40% Hyperlipemia (CMS/HCC) Hypertension (CMS/HCC) 06/2014 Pancreatitis Past Surgical History: Procedure Laterality Date ANGIOPLASTY APPENDECTOMY 1960 CHOLECYSTECTOMY COLONOSCOPY 2019 CORONARY ARTERY BYPASS GRAFT 2009 [facility] schwann EGD 2019 HERNIA REPAIR 2003 Visit [...] failure), NYHA class 2 (CMS/HCC) Atherosclerosis of [place] coronary artery of [place] heart without angina pectoris (CMS/HCC) Right cervical radiculopathy - methylPREDNISolone (Medrol Dospak) 4 MG tablets; Follow schedule on package instructions Follow up in about 4 weeks (around 06/24/2023) for Recheck, F/U med changes. documented in this encounterPhelps [id number] Evaluation note* Encounter Date Diagnosis Assessment Notes Treatment Notes Treatment Clinical Notes Apr, Liver lesion, right lobe (ICD-10 - K76.9) [facility] Other Evaluation noteNo InformationNosullivan [facility] [employer] Other Evaluation note* Diagnosis Benign essential hypertension (CMS/HCC)- Primary Essential hypertension, benign Chronic systolic CHF (congestive heart failure), NYHA class 2 (CMS/HCC) Atherosclerosis of [place] coronary artery of [place] heart without angina pectoris (CMS/HCC) Right cervical radiculopathy [facility] Diagnosis Routine general medical examination at health care facility- Primary Routine general medical examination at a health care facility ACP (advance care planning) Other specified counseling Atherosclerosis of [place] coronary artery of [place] heart without angina pectoris (CMS/HCC) Atrial enlargement, [...] of both eyes documented in this encounter [facility] Diagnosis Routine general medical examination at health care facility- Primary Routine general medical examination at a health care facility Other chronic pancreatitis (CMS/HCC) Chronic systolic (congestive) heart failure (CMS/HCC) Unspecified systolic (congestive) heart failure (CMS/HCC) Chronic kidney disease, stage 3a (HCC) (CMS/HCC) Carpal tunnel syndrome of right wrist Atherosclerosis of [place] coronary artery of [place] heart without angina pectoris (CMS/HCC) Atrial enlargement, [...] History appendectomy Hospitalization History see surgical history [facility] Other Hospital course Narrative No data available for this section [facility] Progress note No data available for this section [facility] Summary Purpose Family History No Family History [...] History Records FoundNo Family History Records Found No data available for this section No Family History Records FoundNo Family History [...] Records FoundNo Advanced Directives Records FoundNo Advanced Directiv es Records FoundNo Advanced Directives Records FoundNo Advanced Directives Records FoundNo AdvancedDirectives Records FoundNo Advanced Directives Records Found Hospital Course Note MR#: [id number] [facility] Pt. Name: Radha Cabello Admitted: 07/01/2020 Discharged: [...] section and content) DATE CREATED AUTHOR 06/29/2018 [facility] DATE CREATED AUTHOR AUTHOR'S ORGANIZ ATION 07/13/2020 [facility] DATE CREATED AUTHOR AUTHOR'S ORGANIZ ATION 06/17/2021 [facility] Me dical Specialist DATE CREATED AUTHOR AUTHOR'S ORGANIZ ATION 07/31/2021 [facility] pital DATE CREATED AUTHOR AUTHOR'S ORGANIZ ATION 09/23/2021 [facility] DATE CREATED AUTHOR AUTHOR'S ORGANIZ ATION 05/07/2024 [facility] dical Specialists [facility] DATE CREATED AUTHOR AUTHOR'S ORGANIZ ATION 09/02/2024 [facility] DATE CREATED AUTHOR AUTHOR'S ORGANIZ ATION 09/03/2024 [facility] DATE CREATED AUTHOR AUTHOR'S ORGANIZ ATION 09/03/2024 [facility] DATE CREATED AUTHOR AUTHOR'S ORGANIZ ATION 09/04/2024 [facility] REASON FOR VISIT (unrecogniz ed section and content) Reason Comments Follow-up Went to [facility] ER 4 was kept for observation dx: hypotension coreg and lisinopril doses decreased and advised to stop spironolactone Arm Pain Reason Comments Medicare Annual Wellness Visit Subsequen t Care Teams (unrecognized sec tion and content) Electronics Technician Apprentice Relationship Specialty Start Date End Date Scott Tai MD [address] [facility] [address] [place] [address] PCP - Patterson MA 04/20/21 Scott Tai MD [address] [address] [place] [address] PCP - General Internal Medicine 10/22/22 Electronics Technician Apprentice Relationship Specialty Start Date End Date Scott Tai MD [address] [facility] [address] [place] [address] PCP - Patterson MA 04/20/21 Scott Tai MD [address] [facility] [address] [place] [address] PCP - General Internal Medicine 10/22/22 Electronics Technician Apprentice Relationship Specialty Start Date End Date Scott Tai MD [address] [facility] [address] [place] [address] PCP - Patterson MA 04/20/21 Scott Tai MD [address] [facility] [address] [place] [address] PCP - General Internal Medicine 10/22/22 Electronics Technician Apprentice Relationship Specialty Start Date End Date Scott Tai MD [address] [facility] [address] [place] [address] PCP - Patterson MA 04/20/21 Scott Tai MD [address] [facility] [address] [place] [address] PCP - General Internal Medicine 10/22/22 Electronics Technician Apprentice Relationship Specialty Start Date End Date Scott Tai MD [address] [address] [place] [address] PCP - Patterson MA 04/20/21 Scott Tai MD [address] [facility] [address] [place] [address] PCP - General Internal Medicine 10/22/22 Electronics Technician Apprentice Relationship Specialty Start Date End Date Scott Tai MD [address] [facility] [address] [place] [address] PCP - Lashon PASCUAL 04/20/21 Scott Tai MD [address] [facility] [address] [place] [address] PCP - General Internal Medicine 10/22/22 FOR [...] BE BASED ON THE PRIMARY CLINICAL RECORDS. [employer] provides no warranty or guarantee of the accuracy or completeness of information in this document.
[2024-09-05 09:27] LABS: Basophils Percent Auto 0.4 % (0.2-2.0); Eosinophils Absolute Auto 0.2 10^3/uL (0.0-0.7); Eosinophils Percent Auto 2.6 % (0.9-7.0); Hematocrit 27.2 % (42.0-54.0); Hemoglobin 8.8 g/dL (14.0-18.0); Immature Granulocytes Abs Auto 0.04 10^3/uL (0.00-0.03); Immature Granulocytes Pct Auto 0.4 % (0.0-0.5); Lymphocytes Absolute Auto 1.6 10^3/uL (1.2-3.8); Lymphocytes Percent Auto 17.3 % (20.5-60.0); Mean Corpuscular HGB Conc 32.4 g/dL (29.9-35.2); Mean Corpuscular Hemoglobin 28.1 pg (25.9-34.0); Mean Corpuscular Volume 86.9 fL (80.0-94.0); Monocytes Percent Auto 10.4 % (1.7-12.0); Neutrophils Absolute Auto 6.4 10^3/uL (1.4-6.5); Neutrophils Percent Auto 68.9 % (43.0-75.0); Platelet Count 276 10^3/uL (150-450); Red Blood Count 3.13 10^6/uL (4.70-6.10); Red Cell Distribution Width 14.6 % (11.0-15.0); White Blood Count 9.3 10^3/uL (4.0-11.0)
[2024-09-05 10:09] LABS: Alanine Aminotransferase 18 U/L (16-63); Albumin Level 3.2 g/dL (3.4-5.0); Alkaline Phosphatase 73 U/L (46-116); Aspartate Amino Transferase 15 U/L (15-37); Bilirubin Direct 0.2 mg/dL (0.0-0.2); Bilirubin Total 1.2 mg/dL (0.2-1.0); Globulin 3.1 g/dL; Total Protein 6.3 g/dL (6.4-8.2)
[2024-09-06 11:09] LABS: H. pylori Stool Ag, EIA Negative (Negative)
== END 2024-09-05 08:57 | disposition home or self-care (01) ==
LOC: LAB 08:58
PROVIDERS: PCP Internal Medicine
DX: D64.89 Other specified anemias (principal)
CPT/HCPCS: 36415; 80076; 85025; 87338

== ENCOUNTER 2024-10-05 08:43 | Outpatient (OUT) | payer MEDICARE, SELFPAY ==
--- OUTSIDE RECORDS SUMMARY | 2023-12-11 05:00 | XMS_ITS | Encounter Summary ---
Author Name [facility] ([facility] Organization [facility] Address [address] [place] [id number] Care Team Providers Care Tin Dipper Name Role Phone TREASURE GREGORY Primary Care Provider Summer e Insurance Providers: All historical and current Section Date Range: From patient's date of to the date document was created. This section includes the names of all active insurance providers for the patient. Insurance Provider Type of Coverage Plan Name Start of Policy Coverage End of Policy Coverage Group Number Member ID Insurance Provider's Telephone Number Policy Myers's Name Patient's Relationship to Policy Myers MEDICARE (WNR) MEDICARE (M) PART A August 19, 2007 PART A [id number] [phone] JAYY BOB Y PATIENT MEDICARE (WNR) MEDICARE (M) PART B August 19, 2007 PART B [id number] REERREBECCAR Y PATIENT Selected Encounter This section includes the information on record at DC for the Encounter. 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 This section includes future appointments and future orders which are active, pending or scheduled. Future Appointments This section includes appointments that were scheduled to occur 6 months from the date of the Encounter, up to a maximum of 20 appointments. The data comes from all [place] treatment facilities. Appointment Date/Time Appointment Type Appointme nt Facility Name Dec 17, 2023 02:30 PM AMBULATORY - SURGERY [facility] Lab Results: +/- 30 days of the encounter This section includes the Chemistry and Hematology Lab Results on record with DC for the patient. Radiology Reports and Pathology Reports are provided separately, in subsequent sections. Lab Results This section contains the Chemistry/Hematology Results that were resulted 30 days before or 30 daysafter the date of the Encounter. Date/Time Source Result Type Result - Unit Interpretation Reference Range Specimen Type Comment Dec 04, 2023 08:51 AM [facility] COMPREHENSIVE METABOLIC PANEL PLASMA Specimen Type: PLASMA Comment: LDL REF RANGE: OPTIMAL: <100 mg/dL BORDERLINE HIGH: 130-159 mg/dL LDL HIGH: 160-189 mg/dL VERY HIGH: >=190 TRIG REF RANGE: NORMAL <150 mg/dL BORDERLINE HIGH: 150-199 mg/dL TRIG HIGH: 200-499 mg/dL VERY HIGH: >=500 mg/dL Ordering Provider: TREASURE GREGORY Report Released Date/Time: Dec 12, 2022 09:14 AM Reporting Lab: [facility] [id number] [facility] [phone] Performing Lab: [facility] [id number] [place] [phone] ALBUMIN 4.1 g/dL 3.2-4.6 ALKALINE PHOSPHATASE 63 U/L 46-116 ALT/SGPT 17 U/L 0-55 AST/SGOT 20 U/L 5-34 BUN 27 mg/dL H 9-23 CALCIUM 9.6 mg/dL 8.5-10.1 CREATININE 1.2 mg/dL 0.7-1.3 CO2 25 mmol/L 22-29 GLUCOSE 98 mg/dL 74-100 PROTEIN, TOTAL 6.8 g/dL 6.4-8.3 SODIUM 137 mmol/L 136-145 CHLORIDE 106 mmol/L 98-107 BILIRUBIN, TOTAL 1.4 mg/dL H 0.2-1.2 POTASSIUM 4.3 mmol/L 3.5-5.1 ANION GAP 10.0 10-20 EGFR (CALCULATED) 61.0 mL/min Dec 04, 2023 08:51 AM [facility] LIPID PROFILE PLASMA Specimen Type: PLASMA Comment: LDL REF RANGE: OPTIMAL: <100 mg/dL BORDERLINE HIGH: 130-159 mg/dL LDL HIGH: 160-189 mg/dL VERY HIGH: >=190 TRIG REF RANGE: NORMAL <150 mg/dL BORDERLINE HIGH: 150-199 mg/dL TRIG HIGH: 200-499 mg/dL VERY HIGH: >=500 mg/dL Ordering Provider: TREASURE GREGORY Report Released Date/Time: Dec 12, 2022 09:15 AM Reporting Lab: [address] [phone] Performing Lab: [address] [phone] CHOLESTEROL 136 mg/dL 0-200 LDL CHOLESTEROL 80 mg/dL 0-100 HDL CHOLESTEROL 53 mg/dL 40-60 TRIGLYCERIDE 139 mg/dL 0-150 Dec 04, 2023 08:51 AM [facility] CBC BLOOD Specimen Type: BLOOD No comment entered. Ordering Provider: TREASURE GREGORY Report Released Date/Time: Dec 12, 2022 09:15 AM Reporting Lab: [address] [phone] Performing Lab: [address] [phone] WBC COUNT 9.4 10*3/uL 3.6-11.0 RBC COUNT 5.43 10*6/uL 4.47-5.83 HGB 13.9 g/dL 13.6-17.4 HCT 42.5 40.0-51.0 MCV 78.2 fL L 80.0-96.0 MCH 25.6 pg L 27.0-31.0 MCHC 32.7 g/dL 31.5-36.5 PLT 212 10*3/uL 150-400 NUCLEATED RBC/100WBC 0.1 /100{WBCs} None Established-None Established RDW 20.2 H 11.2-15.8 MPV 8.5 fL 7.4-11.4 LYMPHS % 22.1 21.0-51.0 MONOCYTES % 11.5 H 4.0-8.0 NEUTROPHIL % 64.3 54.0-78.0 EOSINOPHIL % 1.5 0.0-3.0 BASOPHIL % 0.6 0.0-3.0 ABSOLUTE LYMPHOCYTE COUNT 2.1 10*3/uL 0. 8-5.0 ABSOLUTE NEUTROPHIL COUNT 6.2 10*3/uL 1. 9-8.6 ABSOLUTE BASOPHIL COUNT 0.1 10*3/uL 0.0- 0.3 ABSOLUTE MONOCYTE COUNT 1.1 10*3/uL H 0.1- 0.9 ABSOLUTE EOSINOPHIL COUNT 0.1 10*3/uL 0. 0-0.3 Dec 04, 2023 08:51 AM [facility] TSH PLASMA Specimen Type: PLASMA Comment: LDL REF RANGE: OPTIMAL: <100 mg/dL BORDERLINE HIGH: 130-159 mg/dL LDL HIGH: 160-189 mg/dL VERY HIGH: >=190 TRIG REF RANGE: NORMAL <150 mg/dL BORDERLINE HIGH: 150-199 mg/dL TRIG HIGH: 200-499 mg/dL VERY HIGH: >=500 mg/dL Ordering Provider: TREASURE GREGORY Report Released Date/Time: Dec 12, 2022 09:15 AM Reporting Lab: [place] [id number] Performing Lab: [place] [id number] TSH 1.351 u[IU]/mL 0.360-4.500 Dec 04, 2023 08:51 AM [facility] VITAMIN D (TOTAL) SERUM Specimen Type : SERUM No comment entered. Ordering Provider: TREASURE GREGORY Report Released Date/Time: Dec 12, 2022 09:15 AM Reporting Lab: [address] [phone] Performing Lab: [place] [id number] VITAMIN D (TOTAL) 39.00 ng/mL 30.00-75.0 0 Dec 04, 2023 08:51 AM [facility] MAGNESIUM PLASMA Specimen Type: PLASMA Comment: LDL REF RANGE: OPTIMAL: <100 mg/dL BORDERLINE HIGH: 130-159 mg/dL LDL HIGH: 160-189 mg/dL VERY HIGH: >=190 TRIG REF RANGE: NORMAL <150 mg/dL BORDERLINE HIGH: 150-199 mg/dL TRIG HIGH: 200-499 mg/dL VERY HIGH: >=500 mg/dL Ordering Provider: TREASURE GREGORY Report Released Date/Time: Dec 12, 2022 09:15 AM Reporting Lab: [address] [phone] Performing Lab: [address] [phone] MAGNESIUM 2.0 mg/dL 1.6-2.6 Dec 04, 2023 08:51 AM [facility] URINALYSIS URINE Specimen Type: URINE No comment entered. Ordering Provider: TREASURE GREGORY Report Released Date/Time: Dec 12, 2022 09:15 AM Reporting Lab: [address] [phone] Performing Lab: [address] [phone] SPECIFIC GRAVITY 1.013 L 1.016-1.022 URINE GLUCOSE Negative mg/dL Negative URINE PROTEIN Negative mg/dL Negative URINE PH 6.0 5.0-8.0 WBC/HPF 23 /[HPF] H <=4 URINE BACTERIA 3+ H Negative RBC/HPF 3 /[HPF] <=4 NITRITE, URINE Negative Negative ESTERASE(WBC) 250 H Negative URINE CLARITY Clear Clear URINE MUCUS Present H Negative URINE BILIRUBIN Negative mg/dL <=0.4 URINE BLOOD Negative mg/dL <0.05 UROBILINOGEN Negative mg/dL <=1 URINE KETONES Negative mg/dL <=9 URINE COLOR Light-Yellow Social History: Smoking Status (Most current) and Tobacco Use (All prior to encounter date) This section includes the most current, and the historical, smoking and tobacco- related health factors from the [place] facility where the Encounter took place. Current Smoking Status This section includes the most current smoking, or tobacco-related health factor, from the [place] facility where the Encounter took place. Date/Time Current Smoking Status Comment Ofelia perla Dec 11, 2023 09:00 AM DC-TOBACCO NEVER USED [facility] Tobacco Use History This section includes a history of the smoking, or tobacco-related health factors, that were collected on or before the date of the Encounter. The data comes from the [place] facility where the Encounter took place. Date/Time Smoking Status/Tobacco Use Comment F acility Dec 12, 2022 09:00 AM VA-TOBACCO FORMER USER [facility] Dec 12, 2022 09:00 AM VA-TOBACCO QUIT 15 YRS OR MORE [facility] Dec 12, 2021 09:00 AM VA-TOBACCO FORMER USER [facility] Dec 12, 2021 09:00 AM VA-TOBACCO QUIT 15 YRS OR MORE [facility] Dec 12, 2020 08:00 AM VA-TOBACCO FORMER USER [facility] Dec 12, 2020 08:00 AM VA-TOBACCO QUIT 15 YRS OR MORE [facility] May 11, 2018 03:10 PM VA-TOBACCO FORMER USER [facility] May 11, 2018 03:10 PM VA-TOBACCO QUIT 15 YRS OR MORE [facility] Encounter Notes: All associated encounter notes This section contains the clinical notes associated to the Encounter. Date/Time Encounter Note(s) Provider Source Dec 12, 2023 06:25 AM DISCHARGE NOTE: LOCAL TITLE: AFTER VISIT SUMMARY NOTE STANDARD TITLE: DISCHARGE NOTE DICT DATE: DEC 12, 2023@06:25:30 ENTRY DATE: DEC 12, 2023@06:25:30 DICTATED BY: TREASURE GREGORY COSIGNER: URGENCY: STATUS: COMPLETED If the patient did not receive a copy of the after-visit summary or had a virtual visit, a copy of the after-visit summary will be mailed. The after-visit summary includes information pertaining to the patient's encounter, including diagnoses, vital signs, medications, and new orders, as well as a list of any any upcoming appointments and information regarding the patient's ongoing care. The patient's medications were reviewed with the patient by the provider and were provided to the patient as an updated list of medications. The patient was instructed to inform the provider of any medication changes or discrepancies that were noted. Otherwise, the patient was instructed to continue the medications as prescribed. A copy of the after-visit summary provided to the patient is available in [employer]. SCANNED DOCUMENT SIGNATURE NOT REQUIRED Electronically Filed: 12/12/2023 by: EDWIN GREGORYTREASURE L [facility] Dec 11, 2023 08:50 AM INTERNAL MEDICINE OUTPATIENT NOTE: LOCAL TITLE: PRIMARY CARE OUTPATIENT NOTE (T) STANDARD TITLE: INTERNAL MEDICINE OUTPATIENT NOTE DATE OF NOTE: DEC 11, 2023@08:50 ENTRY DATE: DEC 11, 2023@08:50:06 AUTHOR: TREASURE GREGORY EXP COSIGNER: URGENCY: STATUS: COMPLETED In-person Note 83yo Reason for Visit::HERE FOR YEARLY VISIT - SEES DR CARLOS Ponce 4 MONTHS - HAS HX OF CAD- HTN - HLD- HEARING LOSS AND PANCREATIC INSUFFICIENCY - WOULD LIKE TO SEE OPTOLMETRY AND GET NEW HEARING AIDS REVIEW OF SYSTEMS: GI: DENIES ABDOMINAL PAIN ,GERD, CONSTIPATION,DIARRHEA ,RECTAL BLEEDING : DENIES DYSURIA OR HEMATURIA CARDIAC; DENIES CHEST PAIN,PALPATATIONS ,ORTHOPNEA OR PEDAL EDEMA RESPIRATORY:DENIES SOB- CHRONIC COUGH -OR WHEEZING NEURO: DENIES HEADACHE, PARESTHESIA, NEUROPATHY, OR SIGNIFICANT VISUAL PROBLEMS -HAS HEARING AIDS HABITS; TOBACCO;NONE ETOH; NONE OTHER SUBSTANCES NEG PATIENT ALLERGIES DETAILED ALLERGIES/ADVERSE REACTIONS No Known Allergies AMRS - MEDS (REC SUCCINCT) Active and Recently Inpatient, Outpatient and Clinic Medications (including Supplies): Active Non-VA Medications Status ======= 1) Non-VA ASPIRIN 81MG EC TAB 81MG MOUTH EVERY DAY ACTIVE 2) Non-VA ATORVASTATIN CALCIUM 80MG TAB 40MG MOUTH AT ACTIVE BEDTIME 3) Non-VA CARVEDILOL 12.5MG TAB 12.5MG MOUTH TWICE A DAY ACTIVE 4) Non-VA CLOPIDOGREL BISULFATE 75MG TAB 75MG MOUTH ACTIVE EVERY DAY 5) Non-VA HYDRALAZINE HCL 25MG TAB 25MG MOUTH THREE ACTIVE TIMES A DAY 6) Non-VA ISOSORBIDE MONONITRATE 30MG SA TAB 30MG MOUTH ACTIVE EVERY DAY 7) Non-VA LISINOPRIL 20MG TAB 20MG MOUTH EVERY DAY ACTIVE 8) Non-VA MAGNESIUM OXIDE 420MG TAB 840MG MOUTH ACTIVE EVERY DAY 9) Non-VA PANTOPRAZOLE TAB,EC 30MG MOUTH EVERY MORNING, ACTIVE ON AN EMPTY STOMACH 10) Non-VA SPIRONOLACTONE 25MG TAB 25MG MOUTH EVERY DAY ACTIVE PHYSICAL EXAM: Vital Signs: T: 96.2 F [35.7 C] (12/11/2023 08:47) P: 77 (12/11/2023 08:47) R: 16 (12/11/2023 08:47) BP: 149/80 (12/11/2023 08:47) Pain: 0 (12/11/2023 08:47) Height: 64 in [162.6 cm] (12/12/2022 08:44) Weight: 150.1 lb [68.08 kg] (12/11/2023 08:47) Pulse Ox: 97% (12/12/2022 08:44) GENERAL: ALERT- ORIENTED X 4- NO DISTRESS LABS: REVIEWED WITH THE PATIENT: ESSENTIALLY UNREMARKABLE HEAD, EARS ,EYES,NOSE AND THROAT- NORMOCEPHALIC ,LAURA,EOMI, ENT NEG NECK: SUPPLE WITHOUT MASSES OR BRUITS CHEST/LUNG: CHEST SYMETRICAL- LUNGS CLEAR CARDIOVASCULAR : HEART RRR WITHOUT MURMUR GASTROINTESTINAL: ABDOMEN SOFT WITHOUT MASSES OR BRUITS EXTREMITIES; NO EDEMA NEURO: CN II-XII GROSSLY INTACT - NO TREMORS OR ABNORMAL MOVEMENTS ASSESSMENT/PLAN:CAD- S/P CABG 2009 - 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 VA prescription medications, non-VA prescription medications, OTC and herbal medications reviewed: Patient/caregiver verifies that the list is complete and accurate and voices understanding. Patient/caregiver in possession of printed medication list. FOLLOW-UP:RTC IN ONE YEAR WITH LABS I am the Attending Physician. TOTAL TIME SPENT: Spent 30 minutes in care of this patient today including review of records, exam, and placing orders. /jessica/ TREASURE GREGORY PHYSICIAN Signed: 12/11/2023 09:10 [facility] Dec 11, 2023 08:45 AM PRIMARY CARE [facility] GE NOTE: LOCAL TITLE: OUTPATIENT NURSING INTAKE NOTE (T) STANDARD TITLE: PRIMARY CARE NURSING NOTE DATE OF NOTE: DEC 11, 2023@08:45 ENTRY DATE: DEC 11, 2023@08:45:51 AUTHOR: JASKARAN HARLEY EXP COSIGNER: URGENCY: STATUS: COMPLETED Hemoglobin A1C Results: Collection DT Specimen Test Name Result Units Ref Range 12/03/2021 08:32 BLOOD HEMOGLOBIN A1C 5.1 % 3.6 - 5.7 Review Allergies Allergies reviewed and updated per protocol. ALLERGIES/ADVERSE REACTIONS No Known Allergies New temperature reading was documented at this visit. 96.2 F (35.7 C) Pulse reading was documented at this visit. 77 Respiration reading was documented at this visit. 16 New blood pressure reading was documented at this visit. 149/80 Pain scale was documented at this visit. 0 A new weight was documented at this visit. 150.1 lb (68.2 kg) Click here to document a new pulse ox. 99 MEDICATION LIST REVIEW REPORT Patient states no change in documented OTC/Herbals at this visit. 1. Has the patient been feeling sad or distressed? No 2. Has the patient been having personal or family problems? No 3. Has the patient been experiencing worry and/or stress? No 4. Has the patient been having problems with drugs and/or alcohol? No 5. [place] [facility] pocket card was provided to patient. Yes [facility] MAP ('s [place], [place] and [place]) What matters most to you? Comment: Family Clinical Reminders Activity Advance Directive Education Screen: Patient received information regarding Advance Directives: Yes - Patient has been given information/education regarding Advance Directives. Patient advised to follow up with Social Work Service. Level of Understanding: Good Alcohol Use Screen (AUDIT-C): Alcohol Screen: SCREEN FOR ALCOHOL (AUDIT-C) An alcohol screening test (AUDIT-C) was negative (score=0). 1. How often did you have a drink containing alcohol in the past year? Consider a drink to be a 12 ounce can or bottle of regular beer, 8 ounces of malt liquor, a 5 ounce glass of table wine, or a 1.5 ounce shot of liquor (like scotch, gin, or vodka). Never 2. How many drinks containing alcohol did you have on a typical day when you were drinking in the past year? Response not required due to responses to other questions. 3. How often did you have six or more drinks on one occasion in the past year? Response not required due to responses to other questions. COVID-19 Immunization: Depression Screening: Perform PHQ-2 A PHQ-2 screen was performed. The score was 0 which is a negative screen for depression. Over the past two weeks, how often have you been bothered by the following problems? 1. Little interest or pleasure in doing things Not at all 2. Feeling down, depressed, or hopeless Not at all Fall Screen: Patient was asked if he/she has had any falls within the past 12 months. Patients states no falls in past 12 months. Teaching Method: Verbal discussion Education Topic: Falls Risk Level of Understanding: Good [place]/Elderly Screen: ADL Screen Record INDEX of ADL. Score = 18 1. Bathing: either sponge bath, tub bath or shower. Receives no assistance (gets in and out of tub by self, if tub is usual means of bathing). 2. Dressing: gets clothes from closets and drawers, including under-clothes, outer garments and using fasteners (including braces if worn). Gets clothes and dresses self without assistance. 3. Toileting: going to the toilet room for bowel and urine elimination; cleaning self after elimination and arranging clothes. (May use cane, walker, or wheelchair, and manage bedpan or commode, emptying same next morning). No assistance needed. 4. Transfer: Moves in and out of bed, or chair, without assistance (may use support object like cane or walker). 5. Continence: Controls urination and bowel movement completely by self. 6. Feeding: Feeds self without assistance. Homelessness/Food Insecurity Screen: In the past 2 months, have you been living in stable housing that you own, rent, or stay in as part of a household? Yes - Living in stable housing. Are you worried or concerned that in the next 2 months you may NOT have stable housing that you own, rent, or stay in as part of a household? No - Not worried about housing near future [facility] [place] reports the following: Within the past 12 months, you worried whether your food would run out before you got money to buy more. Never true Within the past 12 months, the food you bought just didn't last and you didn't have money to get more. Never true Patient Education Documentation: LEARNING NEEDS ASSESSMENT: The patient/family/significant other reports no changes in learning needs. PTSD Screening: PC-PTSD-5 A PTSD screening test (PC-PTSD-5) was negative (score=0). IN THE PAST MONTH, have you ever had any experience that was so frightening, horrible or traumatic. For example: A serious accident or fire a physical or sexual assault or abuse An earthquake or flood A war Seeing someone be killed or seriously injured Having a loved one through homicide or suicide 1. Have you ever experienced this kind of event? NO 2. Had nightmares about the event(s) or thought about the event(s) when you did not want to? Response not required due to responses to other questions. 3. Tried hard not to think about the event(s) or went out of your way to avoid situations that reminded you of the event(s)? Response not required due to responses to other questions. 4. Been constantly on guard, watchful, or easily startled? Response not required due to responses to other questions. 5. [place] numb or detached from people, activities, or your surroundings? Response not required due to responses to other questions. 6. [place] guilty or unable to stop blaming yourself or others for the event(s) or any problems the event(s) may have caused? Response not required due to responses to other questions. Suicide Screen: C-SSRS Screening [place] Suicide Severity Rating Scale (C-SSRS) screener 1. Over the past month, have you wished you were or wished you could go to sleep and not wake up? No 2. Over the past month, have you had any actual thoughts of killing yourself? No 3. Over the past month, have you been thinking about how you might do this? Response not required due to responses to other questions. 4. Over the past month, have you had these thoughts and had some intention of acting on them? Response not required due to responses to other questions. 5. Over the past month, have you started to work out or worked out the details of how to kill yourself? Response not required due to responses to other questions. 6. If yes, at any time in the past month did you intend to carry out this plan? Response not required due to responses to other questions. 7. In your lifetime, have you ever done anything, started to do anything, or prepared to do anything to end your life (for example, collected pills, obtained a gun, gave away valuables, went to the roof but didn't jump)? No 8. If YES, was this within the past 3 months? Response not required due to responses to other questions. Tobacco Use Screening: The patient has never used tobacco. /jessica/ JASKARAN HARLEY LICENSED PRACTICAL NURSE Signed: 12/11/2023 08:56 [facility]
--- OUTSIDE RECORDS SUMMARY | 2023-12-17 10:30 | XMS_ITS | Encounter Summary ---
Author Name [facility] Address [address] [place] [id number] Care Team Providers Care Hand Laster Name Role Phone ZULETAH TREASURE Primary Care Provider Summer e Insurance Providers: [...] PART A August 19, 2007 PART A [id number] [phone] JAYY BOB Y PATIENT MEDICARE (WNR) MEDICARE (M) PART B August 19, 2007 PART B [id number] [phone] REERREBECCAR Y PATIENT Selected Encounter This section includes the information on record at [place] for the Encounter. Date/Time Encounter Type Encounter Description Reason Provider Source Dec 17, 2023 02:30 PM OFFICE O/P EST MOD 30 MIN OPTOMETRY ICD-10-CM H35.3132 Nexdtve age-related mclr degn, bilateral, intermed dry stage [facility] Encounter Template Text not used by [facility] Assessments - Encounter Diagnoses This section includes the primary and secondary diagnoses documented for the Encounter. Date/Time Primary/Secondary Diagnosis Diagnosis Name Provider Source Dec 17, 2023 05:00 PM PRIMARY Nexdtve age-related mclr degn, bilateral, intermed dry stage [facility] Dec 17, 2023 05:00 PM SECONDARY Dry eye syndrome of bilateral lacrimal glands [facility] Dec 17, 2023 05:00 PM SECONDARY Open angle with borderline findings, low risk, bilateral [facility] Dec 17, 2023 05:00 PM SECONDARY Presbyopia [facility] Dec 17, 2023 05:00 PM SECONDARY Presence of intraocular lens [facility] Dec 17, 2023 05:00 PM SECONDARY Regular astigmatism, bilateral [facility] Lab Results: +/- 30 days of the encounter This section includes the Chemistry and Hematology Lab Results on record with [facility] for the patient. Radiology Reports and Pathology Reports are provided separately, in subsequent sections. Lab Results This section contains the Chemistry/Hematology Results that were resulted 30 days before or 30 daysafter the date of the Encounter. Date/Time Source Result Type Result - Unit Interpretation Reference Range Specimen Type Comment Dec 04, 2023 08:51 AM [facility] COMPREHENSIVE METABOLIC PANEL PLASMA Specimen Type: PLASMA Comment: LDL REF RANGE: OPTIMAL: <100 mg/dL BORDERLINE HIGH: 130-159 mg/dL LDL HIGH: 160-189 mg/dL VERY HIGH: >=190 TRIG REF RANGE: NORMAL <150 mg/dL BORDERLINE HIGH: 150-199 mg/dL TRIG HIGH: 200-499 mg/dL VERY HIGH: >=500 mg/dL Ordering Provider: TREASURE GREGORY Report Released Date/Time: Dec 12, 2022 09:14 AM Reporting Lab: [facility] [id number] [facility] [id number] Performing Lab: [facility] [id number] [facility] [phone] ALBUMIN 4.1 g/dL 3.2-4.6 ALKALINE PHOSPHATASE 63 [...] 61.0 mL/min Dec 04, 2023 08:51 AM [facility] LIPID PROFILE PLASMA Specimen Type: PLASMA Comment: LDL REF RANGE: OPTIMAL: <100 mg/dL BORDERLINE HIGH: 130-159 mg/dL LDL HIGH: 160-189 mg/dL VERY HIGH: >=190 TRIG REF RANGE: NORMAL <150 mg/dL BORDERLINE HIGH: 150-199 mg/dL TRIG HIGH: 200-499 mg/dL VERY HIGH: >=500 mg/dL Ordering Provider: TREASURE GREGORY Report Released Date/Time: Dec 12, 2022 09:15 AM Reporting Lab: [address] [id number] Performing Lab: [place] [phone] CHOLESTEROL 136 mg/dL 0-200 LDL CHOLESTEROL 80 mg/dL 0-100 HDL CHOLESTEROL 53 mg/dL 40-60 TRIGLYCERIDE 139 mg/dL 0-150 Dec 04, 2023 08:51 AM [facility] CBC BLOOD Specimen Type: BLOOD No comment entered. Ordering Provider: TREASURE GREGORY Report Released Date/Time: Dec 12, 2022 09:15 AM Reporting Lab: [address] [phone] Performing Lab: [address] [phone] WBC COUNT 9.4 10*3/uL 3.6-11.0 RBC COUNT [...] 0. 0-0.3 Dec 04, 2023 08:51 AM [facility] TSH PLASMA Specimen Type: PLASMA Comment: LDL REF RANGE: OPTIMAL: <100 mg/dL BORDERLINE HIGH: 130-159 mg/dL LDL HIGH: 160-189 mg/dL VERY HIGH: >=190 TRIG REF RANGE: NORMAL <150 mg/dL BORDERLINE HIGH: 150-199 mg/dL TRIG HIGH: 200-499 mg/dL VERY HIGH: >=500 mg/dL Ordering Provider: TREASURE GREGORY Report Released Date/Time: Dec 12, 2022 09:15 AM Reporting Lab: [place] [phone] Performing Lab: [place] [phone] TSH 1.351 u[IU]/mL 0.360-4.500 Dec 04, 2023 08:51 AM [facility] VITAMIN D (TOTAL) SERUM Specimen Type : SERUM No comment entered. Ordering Provider: TREASURE GREGORY Report Released Date/Time: Dec 12, 2022 09:15 AM Reporting Lab: [address] [phone] Performing Lab: [place] [phone] VITAMIN D (TOTAL) 39.00 ng/mL 30.00-75.0 0 Dec 04, 2023 08:51 AM [facility] MAGNESIUM PLASMA Specimen Type: PLASMA Comment: LDL REF RANGE: OPTIMAL: <100 mg/dL BORDERLINE HIGH: 130-159 mg/dL LDL HIGH: 160-189 mg/dL VERY HIGH: >=190 TRIG REF RANGE: NORMAL <150 mg/dL BORDERLINE HIGH: 150-199 mg/dL TRIG HIGH: 200-499 mg/dL VERY HIGH: >=500 mg/dL Ordering Provider: TREASURE GREGORY Report Released Date/Time: Dec 12, 2022 09:15 AM Reporting Lab: [address] [phone] Performing Lab: [address] [address] MAGNESIUM 2.0 mg/dL 1.6-2.6 Dec 04, 2023 08:51 AM [facility] URINALYSIS URINE Specimen Type: URINE No comment entered. Ordering Provider: TREASURE GREGORY Report Released Date/Time: Dec 12, 2022 09:15 AM Reporting Lab: [address] [phone] Performing Lab: [address] [phone] SPECIFIC GRAVITY 1.013 L 1.016-1.022 URINE GLUCOSE [...] and tobacco- related health factors from the [place] facility where the Encounter took place. Current Smoking Status This section includes the most current smoking, or tobacco-related health factor, from the [place] facility where the Encounter took place. Date/Time Current Smoking Status Comment Ofelia ity Dec 11, 2023 09:00 AM PA-TOBACCO NEVER USED [facility] Tobacco Use History This section includes a history of the smoking, or tobacco-related health factors, that were collected on or before the date of the Encounter. The data comes from the [place] facility where the Encounter took place. Date/Time Smoking Status/Tobacco Use Comment F acility Dec 12, 2022 09:00 AM [place]-TOBACCO FORMER USER [facility] Dec 12, 2022 [...] Encounter. Date/Time Encounter Note(s) Provider Source Dec 17, 2023 02:55 PM OPHTHALMOLOGY CONS ULT: LOCAL TITLE: OPHTHALMIC IMAGING NOTE (C) STANDARD TITLE: OPHTHALMOLOGY CONSULT DATE OF NOTE: DEC 17, 2023@14:55 ENTRY DATE: DEC 17, 2023@14:55:39 AUTHOR: LUIS MUNOZ EXP COSIGNER: [facility]RG[facility]Y: STATUS: COMPLETED Attached are Ophthalmic images. /jessica/ LUIS MUNOZ OPTOMETRY WEED SPRAYER Signed: 12/17/2023 14:55 /jessica/ [facility] CASING TESTER Cosigned: 12/17/2023 15:39 LUIS MUNOZY CB Dec 17, 2023 02:49 PM OPTOMETRY NOTE: LOCAL TITLE: OPTOMETRY WEED SPRAYER NOTE STANDARD TITLE: OPTOMETRY NOTE DATE OF NOTE: DEC 17, 2023@14:49 ENTRY DATE: DEC 17, 2023@14:49:51 AUTHOR: LUIS MUNOZ EXP COSIGNER: [facility]: STATUS: COMPLETED 83 Year old vet here today ANNA and OCT Last Eye exam: July 15 2022 TRUJILLO/OPT Dr Li Chief Complaint: patient upset that cataract surgery did not improve his vision states he still can not read newspaper Ocular History: (+) MGD c DAR OU (+) pseudophakia OU (+) 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 LIOP: OD:16 OS:16 LCD: OD:0.50 OS:0.50 Ocular Medications: AREDS Family Ocular History: Blindness/glaucoma/ARMD (-) Medical History: Coronary artery disease 05/24/2018 Benign essential hypertension 05/24/2018 HLD - Hyperlipidaemia 05/24/2018 Bilateral hearing loss 05/24/2018 (-)Surgery/trauma Ocular Medications: Family Ocular History: Blindness/glaucoma/ARMD (-) Medical History: Active Medications: Non-VA ASPIRIN 81MG EC TAB 81MG MOUTH EVERY DAY ACTIVE Non-VA ATORVASTATIN CALCIUM 80MG TAB 40MG MOUTH AT ACTIVE Non-VA CARVEDILOL 12.5MG TAB 12.5MG MOUTH TWICE A DAY ACTIVE Non-VA CLOPIDOGREL BISULFATE 75MG TAB 75MG MOUTH ACTIVE Non-VA HYDRALAZINE HCL 25MG TAB 25MG MOUTH THREE ACTIVE Non-VA ISOSORBIDE MONONITRATE 30MG SA TAB 30MG MOUTH ACTIVE Non-VA LISINOPRIL 20MG TAB 20MG MOUTH EVERY DAY ACTIVE Non-VA MAGNESIUM OXIDE 420MG TAB 840MG MOUTH ACTIVE Non-VA PANTOPRAZOLE TAB,EC 30MG MOUTH EVERY MORNING, ACTIVE Non-VA SPIRONOLACTONE 25MG TAB 25MG MOUTH EVERY DAY ACTIVE Allergies: patient sates KNDA Current Rx: OD: pl -1.00 X96 OS: +0.25 -1.00 X73 ADD:+2.75 VA: sRx OD: 20/60 PH: 20/40 OS: 20/50 PH: 20/30 EOMs: FULL OU PUPILS: ERRL -APD OU CF: FULL OU /jessica/ LUIS MUNOZ OPTOMETRY WEED SPRAYER Signed: 12/17/2023 14:50 /jessica/ [facility] CASING TESTER Cosigned: 12/17/2023 14:53 LUIS MUNOZ CB Dec 17, 2023 02:38 PM OPTOMETRY OUTPATIE NT NOTE: LOCAL TITLE: OPTOMETRY OUTPATIENT CLINIC NOTE (T) STANDARD TITLE: OPTOMETRY OUTPATIENT NOTE DATE OF NOTE: DEC 17, 2023@14:38 ENTRY DATE: DEC 17, 2023@14:38:15 AUTHOR: [facility] EXP COSIGNER: URGENCY: STATUS: COMPLETED 83 yowm here today for ANNA and OCT Last Eye exam: July 15, 2022 TRUJILLO/OPT Dr Li Chief Complaint: patient upset that cataract surgery did not improve his vision, states he still can not read newspaper Ocular History: (+) MGD c DAR OU (+) Pseudophakia OU (+) 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 LIOP: OD:16 OS:16 LCD: OD:0.50 OS:0.50 Ocular Medications: AREDS Family Ocular History: Blindness/glaucoma/ARMD (-) Medical History: Coronary artery disease 05/24/2018 Benign essential hypertension 05/24/2018 HLD - Hyperlipidaemia 05/24/2018 Bilateral hearing loss 05/24/2018 Active Medications: Non-VA ASPIRIN 81MG EC TAB 81MG MOUTH EVERY DAY ACTIVE Non-VA ATORVASTATIN CALCIUM 80MG TAB 40MG MOUTH AT ACTIVE Non-VA CARVEDILOL 12.5MG TAB 12.5MG MOUTH TWICE A DAY ACTIVE Non-VA CLOPIDOGREL BISULFATE 75MG TAB 75MG MOUTH ACTIVE Non-VA HYDRALAZINE HCL 25MG TAB 25MG MOUTH THREE ACTIVE Non-VA ISOSORBIDE MONONITRATE 30MG SA TAB 30MG MOUTH ACTIVE Non-VA LISINOPRIL 20MG TAB 20MG MOUTH EVERY DAY ACTIVE Non-VA MAGNESIUM OXIDE 420MG TAB 840MG MOUTH ACTIVE Non-VA PANTOPRAZOLE TAB,EC 30MG MOUTH EVERY MORNING, ACTIVE Non-VA SPIRONOLACTONE 25MG TAB 25MG MOUTH EVERY DAY ACTIVE Allergies: patient states NKA Current Rx: OD: plano -1.00 X096 OS: +0.25 -1.00 X073 ADD: +2.75 VA: cRx OD: 20/60 PH: 20/40 OS: 20/50 PH: 20/30 EOMs: FULL OU PUPILS: ERRL -APD OU CF: FULL OU Refraction: OD: plano -0.50 x115 VA: 20/50-1 OS: +1.25 -1.00 x078 VA: 20/50-2 ADD: +4.00 Slit Lamp Exam: Lids and lashes: MGD OU Conjunctiva: clear OU Cornea: clear OU Anterior chamber: d/q OU Angles: 4 n/t OU Iris: clear, (-) cristo OU Lens: OD: PCIOL OS: PCIOL Obtained informed consent from patient for use of DPA's, educated patient about side effects. 1 gt. Fluress OU, 1 gt. 1.0% [place]. OU, 1 gt. 2.5 % Phenyl. OU @ 3:15 PM Tonometry (A): @ 3:15 PM OD/OS: 16 (12/17/23) DFE: C/D: OD: 0.50/0.50 OS: 0.50/0.50 Posterior pole: central RPE clumping OU Vessels: normal course/caliber OU Vitreous: clear OU Periphery: (-) holes/tears 360 OU OCT: V CD ratio; Avg RNFL Thickness OD: 0.51; unreliable; RPE clumping OS: 0.58; 76 c sup thinning; RPE clumping Assessment/Plan: 1. Regular astigmatism c presb OU. Rx released to [facility]. 2. MGD c DAR OU. Continue Refresh tid OU. Monitor. 3. Pseudophakia OU - stable. Monitor. 4. Moderate Dry AMD OU - stable per retina; cause for decrease in vision. Continue AREDS and HAG. Monitor 1 year c ANNA and OCT; RTC STAT c any changes in vision. 5. Low risk glaucoma suspect; Moderate CDs OU - stable; IOPs are good and stable OU. Monitor 1 year c ANNA and OCT watching for any changes. RTC: 1 year ANNA and OCT /jessica/ [facility] CASING TESTER Signed: 12/17/2023 17:00 [facility]
--- OUTSIDE RECORDS SUMMARY | 2024-10-05 08:48 | XMS_ITS | Encounter Summary ---
Author Organization [facility] Address [address] [facility] [place] [address] Care Team Providers Care Net Development Manager Name Role Phone Scott Tai MD Unavailable [phone] Scott Tai MD Primary Care Provider [phone] Shelley Gilmore RN Unavailable [phone] Ruma Fernandes LPN Unavailable Encounter Details Date Type Department Care Team (Late st Contact Info) Description 07/06/2024 Abstract [facility] [address] [facility] [address] [place] [id number] Scott Tai MD [address] [facility] [address] [place] [address] Social History Tobacco Use Types Packs/Day Years Used Date Smoking Tobacco: Never Smokeless Tobacco: Never Alcohol Use Standard Drinks/Week Comments Not Currently 0 (1 standard drink = 0.6 oz pure alcohol) Caffeine intake : 1-2 cups per day coffee B1300 Health Literacy Answer Date Recor ded How often do you need to hav e someone help you when you read instructions, pamphlets, or other written material from your doctor or pharmacy? Never 11/10/2023 Humiliation, Afraid, Rape, and Kick questionnair e Answer Date Recorded Within the last year, have y ou been afraid of your partner or ex-partner? No 11/10/2023 Within the last year, have y ou been humiliated or emotionally abused in other ways by your partner or ex-partner? No Within the last year, have y ou been kicked, hit, slapped, or otherwise physically hurt by your partner or ex-partner? No 11/10/2023 Within the last year, have y ou been raped or forced to have any kind of sexual activity by your partner or ex-partner? No 11/10/2023 Social Connection and Isolation Panel [NHANES] A nswer Date Recorded In a typical week, how many times do you talk on the phone with family, friends, or neighbors? Once a week 11/10/19 How often do you get togethe r with friends or relatives? Once a week 11/10/2023 How often do you attend chur or scientology services? 1 to 4 times per year 11/10/2023 Do you belong to any clubs o r organizations such as pentecostalism groups, unions, fraternal or athletic groups, or school groups? No 11/10/2023 How often do you attend meet ings of the clubs or organizations you belong to? Never 11/10/2023 Are you , , di vorced, , never , or living with a partner? 11/10/2023 AUDIT-C Answer Date Recorded Q1: How often do you have a drink containing alcohol? Never 12/02/2022 Q2: How many drinks containi ng alcohol do you have on a typical day when you are drinking? Patient does not drink Q3: How often do you have si x or more drinks on one occasion? Never 12/02/2022 Overall Financial Resource Strain (CARDIA) Answe r Date Recorded How hard is it for you to pa y for the very basics like food, housing, medical care, and heating? Not hard at all 12/02/2022 PHQ-2 Answer Date Recorded Patient Health Questionnaire-2 Score 0 05/04/2024 [facility] ional Health - Occupational Stress Questionnaire Answer Date Recorded Do you feel stress - tense, restless, nervous, or anxious, or unable to sleep at night because your mind is troubled all the time - these days? Not at all 12/02/2022 Exercise Vital Sign Answer Date Recorde d On average, how many days pe r week do you engage in moderate to strenuous exercise (like a brisk walk)? 2 days 12/02/2022 On average, how many minutes do you engage in exercise at this level? 10 min 12/02/2022 Hunger Vital Sign Answer Date Recorded Within the past 12 months, y ou worried that your food would run out before you got the money to buy more. Never true 12/03/19 23 Within the past 12 months, t he food you bought just didn't last and you didn't have money to get more. Never true 12/02/2022 PRAPARE - Transportation Answer Date Re corded In the past 12 months, has l ack of transportation kept you from medical appointments or from getting medications? No 11/18 In the past 12 months, has l ack of transportation kept you from meetings, work, or from getting things needed for daily living? No 12/02/2022 Housing Stability Vital Sign Answer Hai e Recorded In the last 12 months, was t here a time when you were not able to pay the mortgage or rent on time? No 12/02/2022 In the last 12 months, how many places have you lived? 1 12/02/2022 In the last 12 months, was t here a time when you did not have a steady place to sleep or slept in a senior care (including now)? No 12/02/2022 Sex and Gender Information Value Date Recorded Sex Assigned at Not on file Legal Sex Male 6:45 PM EDT Gender Identity Not on file Sexual Orientation Not on file documented as of this encounter Plan of Treatment Upcoming Encounters Date Type Department Care Team (Late st Contact Info) Description 05/04/2025 8:30 AM EST Office Visit [facility] [address] [facility] [address] [place] [address] Scott Tai MD [address] [facility] 110 [place] [address] documented as of this encounter Visit Diagnoses Not on filedocumented in this encounter Care Teams Net Development Manager Relationship Specialty Start Date End Date Scott Tai MD [address] [facility] [address] [place] [address] PCP - Lashon PASCUAL 04/20/21 Scott Tai MD [address] [facility] [address] [place] [address] PCP - General Internal Medicine 10/22/22 Shelley Gilmore, RN [address] [place] [address] Clinical Advocate Family Medicine 05/27/24 07/08/24 Ruma Fernandes LPN 112 [facility] 110 [place] [address] 07/08/24 documented as of this encounter
--- OUTSIDE RECORDS SUMMARY | 2024-10-05 08:48 | XMS_ITS | Encounter Summary ---
Author Organization [facility] Address [address] [facility] [place] [address] Care Team Providers Care Food Safety Coordinator Name Role Phone Scott Tai MD Unavailable [phone] Scott Tai MD Primary Care Provider [phone] Shelley Gilmore RN Unavailable [phone] Ruma Fernandes LPN Unavailable Encounter Details Date Type Department Care Team (Late st Contact Info) Description 04/07/2023 Abstract [facility] [address] [facility] 110 [place] [id number] Scott Tai MD [address] [facility] 110 [place] [address] Social History Tobacco Use Types Packs/Day Years Used Date Smoking Tobacco: Never Smokeless Tobacco: Never Alcohol Use Standard Drinks/Week Comments Not Currently 0 (1 standard drink = 0.6 oz pure alcohol) Caffeine intake : 1-2 cups per day coffee Humiliation, Afraid, Rape, and Kick questionnair e Answer Date Recorded Within the last year, have y ou been afraid of your partner or ex-partner? No 12/02/2022 Within the last year, have y ou been humiliated or emotionally abused in other ways by your partner or ex-partner? No Within the last year, have y ou been kicked, hit, slapped, or otherwise physically hurt by your partner or ex-partner? No 12/02/2022 Within the last year, have y ou been raped or forced to have any kind of sexual activity by your partner or ex-partner? No 12/02/2022 Social Connection and Isolation Panel [NHANES] A nswer Date Recorded Frequency of Communication with Friends and Fami ly Not on file 12/02/2022 Frequency of Social Gatherings with Friends and Family Not on file 12/02/2022 Attends Hinduism Services Not on file 12/02 Active Member of Clubs or Organizations Not on f ile 12/02/2022 Attends Club or Organization Meetings Not on quiana e 12/02/2022 Are you , , di vorced, , never , or living with a partner? 12/02/2022 AUDIT-C Answer Date Recorded Q1: How often [...] Date Recorded Patient Health Questionnaire-2 Score 0 01/08/2023 [facility] of Occupat ional Health - Occupational Stress [...] place to sleep or slept in a fpc (including now)? No 12/02/2022 Sex and Gender Information Value Date Recorded Sex Assigned at Not on file Legal Sex Male 6:45 PM EDT Gender Identity Not on file Sexual Orientation Not on file documented as of this encounter Plan of Treatment Upcoming Encounters Date Type Department Care Team (Late st Contact Info) Description 05/04/2025 8:30 AM EST Office Visit [facility] [address] [facility] [address] [place] [address] Scott Tai MD [address] [facility] [address] [place] [address] documented as of this encounter Visit Diagnoses Not on filedocumented in this encounter Care Teams Food Safety Coordinator Relationship Specialty Start Date End Date Scott Tai MD [address] [facility] [address] [place] [address] PCP - Lashon PASCUAL 04/20/21 Scott Tai MD [address] [facility] [address] [place] [address] PCP - General Internal Medicine 10/22/22 Shelley Gilmore, ALYCIA [address] [place] [address] Clinical Advocate Family Medicine 05/27/24 07/08/24 Ruma Fernandes LPN [address] [address] [place] [address] 07/08/24 documented as of this encounter
--- OUTSIDE RECORDS SUMMARY | 2024-10-05 08:48 | XMS_ITS | Encounter Summary ---
Author Organization [facility] Address [address] [facility] [place] [address] Care Team Providers Care Head Of Merchandise Buying Name Role Phone Scott Tai MD Unavailable [phone] Scott Tai MD Primary Care Provider [phone] Shelley Gilmore RN Unavailable [phone] Ruma Fernandes LPN Unavailable Encounter Details Date Type Department Care Team (Late st Contact Info) Description 01/13/2024 Abstract [facility] [address] [facility] [address] [place] [id number] Scott Tai MD [address] [facility] 110 [place] [address] Social History Tobacco Use Types [...] How often do you attend chur or congregational services? 1 to 4 times per year 11/10/2023 Do you belong to any clubs o r organizations such as tenriism groups, unions, fraternal or athletic groups, or [...] Date Recorded Patient Health Questionnaire-2 Score 0 01/13/2024 [facility] of Occupat ional Health - [...] place to sleep or slept in a assisted (including now)? No 12/02/2022 Sex and Gender Information Value Date Recorded Sex Assigned at Not on file Legal Sex Male 6:45 PM EDT Gender Identity Not on file Sexual Orientation Not on file documented as of this encounter Functional Status * Over the past 2 weeks, how often have you been bothered by any of the following problems? Question Answer Date of Assessment Author Little interest or pleasure in doing things Not at all 01/13/2024 8:00 AM EDT Viviana Martini LP N Feeling down, depressed, or hopeless Not at all 01/13/2024 8:00 AM EDT Viviana Martini LP N Patient Health Questionnaire -2 Score 0 01/13/2024 8:00 AM EDT Viviana Martini LP N documented as of this encounter Plan of Treatment Upcoming Encounters Date Type Department Care Team (Late st Contact Info) Description 05/04/2025 8:30 AM EST Office Visit [facility] [address] [facility] [address] [place] [address] Scott Tai MD [address] [facility] 110 [place] [address] documented as of this encounter Visit Diagnoses Not on filedocumented in this encounter Care Teams Head Of Merchandise Buying Relationship Specialty Start Date End Date Scott Tai MD [address] [facility] 110 [place] [address] PCP - Lashon PASCUAL 04/20/21 Scott Tai MD [address] [facility] 110 [place] [address] PCP - General Internal Medicine 10/22/22 Shelley Gilmore, RN [address] [place], [place] [id number] Clinical Advocate Family Medicine 05/27/24 07/08/24 Ruma Fernandes LPN [address] [facility] [address] [place] [address] 07/08/24 documented as of this encounter
--- OUTSIDE RECORDS SUMMARY | 2024-10-05 08:48 | XMS_ITS | Encounter Summary ---
Author Organization [facility] Address [address] [place] [address] Care Team Providers Care Pilot Plant Technician Name Role Phone Scott Tai MD Unavailable [phone] Scott Tai MD Primary Care Provider [phone] Shelley Gilmore RN Unavailable [phone] Ruma Fernandes LPN Unavailable Encounter Details Date Type Department Care Team (Late st Contact Info) Description 04/07/2023 Orders Only [facility] [address] [facility] [address] [place] [address] A, Unknown Practice [address] [id number] Social History Tobacco Use Types Packs/Day Years [...] and Family Not on file 12/02/2022 Attends Rastafari Services Not on file 12/02 Active Member [...] Recorded Patient Health Questionnaire-2 Score 0 01/08/2023 [facility]at [facility] - Occupational Stress Questionnaire Answer Date Recorded [...] Visit [facility] [address] [facility] [address] [place] [address] Scott Tai MD [address] [facility] [address] [place] [address] documented as of this encounter Procedures Procedure Name Priority Date/Time Associated Diagnosis Comments XR CHEST 1 VIEW Routine 04/07/2023 11:46 AM EST documented in this encounter Results * XR chest 1 view (04/07/2023 11:46 AM EST) Anatomical Region Laterality Modality Chest Radiographic Angie ging us Unknown Practice A IMG XR PROCEDURES Final Resul t documented in this encounter Visit Diagnoses Not on filedocumented in this encounter Care Teams Pilot Plant Technician Relationship Specialty Start Date End Date Scott Tai MD [address] [facility] [address] [place] [address] PCP - Lashon PASCUAL 04/20/21 Scott Tai MD [address] [facility] [address] [place] [address] PCP - General Internal Medicine 10/22/22 Shelley Gilmore, RN [address] [place] [address] Clinical Advocate Family Medicine 05/27/24 07/08/24 Ruma Fernandes LPN 112 [facility] 110 [place] [address] 07/08/24 documented as of this encounter
--- OUTSIDE RECORDS SUMMARY | 2024-10-05 08:48 | XMS_ITS ---
Author Organization [facility] Address [address] [place] [address] Care Team Providers Care Package Line Relief Operator Name Role Phone Scott Tai MD Unavailable [phone] Scott Tai MD Primary Care Provider [phone] Ruma Fernandes LPN Unavailable 30 Day Monitoring Program Status:Closed (Closed) Start date:09/05/2024 Enrollment date:09/05/2024 End date:10/03/2024 Close reason:Actively enrolled in CCM Continued Care and Services Coordination
--- OUTSIDE RECORDS SUMMARY | 2024-10-05 08:48 | XMS_ITS | Encounter Summary ---
Author Organization [facility] Address [address] [facility] [place] [address] Care Team Providers Care Hand Sizer Name Role Phone Scott Tai MD Unavailable [phone] Scott Tai MD Primary Care Provider [phone] Shelley Gilmore RN Unavailable [phone] Ruma Fernandes LPN Unavailable Encounter Details Date Type Department Care Team (Late st Contact Info) Description 05/04/2024 Abstract [facility] [address] [facility] [address] [place] [phone] Scott Tai MD 112 [facility] 110 [place] [address] Social History Tobacco Use Types [...] How often do you attend chur or spiritism services? 1 to 4 times per year 11/10/2023 Do you belong to any clubs o r organizations such as jew groups, unions, fraternal or athletic groups, or [...] Recorded Patient Health Questionnaire-2 Score 0 05/04/2024 [facility] - Occupational Stress [...] place to sleep or slept in a mcc (including now)? No 12/02/2022 Sex and Gender [...] pleasure in doing things Not at all 05/04/2024 8:00 AM JACKI [place] Feeling down, depressed, or hopeless Not at all 04/20 8:00 AM JACKI [place] Patient Health Questionnaire-2 Score 0 04/20 8:00 AM JACKI [place] * Question Answer Date of Assessment Author Trouble falling or staying a sleep, or sleeping too much Not at all 05/04/2024 8:00 AM JACKI [place] Feeling tired or having little energy Not at all 8:00 AM JACKI [place] documented as of this encounter Plan of Treatment Upcoming Encounters Date Type Department Care Team (Late st Contact Info) Description 05/04/2025 8:30 AM EST Office Visit [facility] [address] [facility] [address] [place] [address] Scott Tai MD [address] [facility] [address] [place] [address] documented as of this encounter Visit Diagnoses Not on filedocumented in this encounter Care Teams Hand Sizer Relationship Specialty Start Date End Date Scott Tai MD [address] [facility] [address] [place] [address] PCP - Lashon PASCUAL 04/20/21 Scott Tai MD [address] [facility] [address] [place] [address] PCP - General Internal Medicine 10/22/22 Shelley Gilmore, ALYCIA [address] [place] [address] Clinical Advocate Family Medicine 05/27/24 07/08/24 Ruma Fernandes LPN [address] [facility] [address] [place] [address] 07/08/24 documented as of this encounter
--- OUTSIDE RECORDS SUMMARY | 2024-10-05 08:48 | XMS_ITS | Clinical Summary ---
Author Organization [facility] Address [address] [place] [address] Care Team Providers Care Display Department Manager Name Role Phone Scott Tai MD Primary Care Provider [phone] Allergies No known active allergies Medications aspirin 81 mg EC tablet Take 1 tablet by mouth in the morning. Active atorvastatin (Lipitor) 40 mg tablet Take 40 mg by mouth in the morning. Active carvedilol (Coreg) 25 mg tablet Take 6.25 mg by mouth with breakfast and with evening meal. Active isosorbide mononitrate ER (Imdur) 30 mg 24 hr tablet Use 1 tablet in the mouth or throat 1 (one) time each day. Active lisinopril 40 mg tablet Take 20 mg by mouth in the morning. Active nitroglycerin (Nitrostat) 0.[address] 1 tablet by sublingual route as needed. 2 Active pantoprazole (ProtoNix) 40 mg EC tablet Use 1 tablet in the mouth or throat 1 (one) time each day. Active sildenafil (Viagra) 50 mg tablet Take 50 mg by mouth if needed for erectile dysfunction. 4 Active magnesium oxide (Mag-Ox) 400 mg tablet 400 mg in the morning. Active dapagliflozin propanediol (Farxiga) 10 mgIndications:Fareed ign hypertensive heart disease with heart failure (CMS/HCC) Take 1 tablet (10 mg) by mouth once daily as directed. 90 tablet 3 5 05/05/19 26 Active sucralfate (Carafate) 1 gram tablet Take 1 g by mouth before breakfast, before lunch, before evening meal, and at bedtime. Active spironolactone (Aldactone) 25 mg tabletIndications :Chronic systolic congestive heart failure (CMS/HCC) Take 1 tablet (25 mg) by mouth in the morning. 90 tablet 3 5 09/06/19 26 Active Active Problems Problem Noted Date Diagnosed Date Bilateral hearing loss 02/19/2023 3 Regular astigmatism, bilateral 02/19/2023 1 04/21/2022 Ischemic cardiomyopathy 12/09/2022 Overview (12/09/2022): Patient has an extensive history of CAD. His last known EF was 40%. That was in April 2020. Assessment & Plan (12/09/2022 2:20 PM EDT): As above Atrial enlargement, bilateral 10/23/2022 Basal cell carcinoma of back 10/23/2022 Benign essential hypertension 10/23/2022 Benign prostatic hyperplasia with lower urinary tract symptoms 10/23/2022 12/09/2022 Cardiac arrhythmia 10/23/2022 12/09/2022 Carpal tunnel syndrome of right wrist 10/23/2022 12/09/2022 Chronic recurrent pancreatitis 10/23/2022 0 12/09/2022 Chronic systolic CHF (conges tive heart failure), NYHA class 2 10/23/2022 12/09/2022 Assessment & Plan (12/09/2022 2:26 PM EDT): NYHC- II- remains euvolemic without exacerbation Continue GDMT- Asa, lipitor, coreg, lisinopril, aldactone Diuretic therapy- none at this time Monitor daily weights, I&O, fluid restriction 1.5-2L/day, renal function and electrolytes- Echocardiogram ordered for known reduced EF, recent chest pain and hypotension Diverticulosis of colon 10/23/2022 12/10/19 23 Dyspepsia 10/23/2022 12/09/2022 Elevated PSA 10/23/2022 12/09/2022 History of coronary artery bypass graft 10/24/19 23 12/09/2022 Idiopathic chronic pancreatitis 10/23/2022 12/09/2022 Impotence of organic origin 10/23/202211/19 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 10/23/2022 12/09/2022 Mitral valve insufficiency 10/23/202212/09 Nocturia 10/23/2022 12/09/2022 Nuclear sclerosis of both eyes 10/23/2022 0 12/09/2022 Overweight (BMI 25.0-29.9) 10/23/202212/09 Pancreatic insufficiency 10/23/2022 023 Sensorineural hearing loss, bilateral 10/23/2022 12/09/2022 Squamous cell carcinoma of left hand 10/23/2022 12/09/2022 Stage 3a chronic kidney disease 10/23/2022 12/09/2022 Cardiovascular stress test abnormal 08/21/2022 Chest pain 08/21/2022 Coronary arteriosclerosis 08/21/2022 Overview (12/09/2022): cath 03-20 RCA and LAD occluded Byrd to LAD and radial to PDA patent DVG to D1 patent circumflex OM 2 70 % small vessel Assessment & Plan (12/09/2022 2:19 PM EDT): Coronary artery disease is stable Continue GDMT- ASA, coreg, lipitor, plavix, imdur, and lisinopril continue risk factor modifications- heart healthy diet, regular exercise as tolerated and continue all medications. Dyspnea 08/21/2022 Assessment & Plan (12/09/2022 2:20 PM EDT): Currently stable without symptoms Fatigue 08/21/2022 History of hypertension 08/21/2022 Hyperlipidemia 08/21/2022 Assessment & Plan (12/09/2022 1:09 PM EDT): Continue statin Hypertensive disorder 08/21/2022 Assessment & Plan (12/09/2022 2:20 PM EDT): Hypertension is currently well controlled, PCP had reduced multiple HTN meds r/t noted symptomatic hypotension Coreg, lisinopril and aldactone were all reduced by half Old myocardial infarction 08/21/2022 Encounters Date Type Department Care Team Description 09/05/2024 9:45 AM EDT Office Visit [facility] [address] [place] [address] Kyle Patrick MD Coronary artery disease involving knik coronary artery of knik heart without angina pectoris (Primary Dx); History of coronary artery bypass surgery; Chronic systolic congestive heart failure (CMS/HCC); Primary hypertension; Mixed hyperlipidemia 09/02/2024 Telephone [facility] [address] [place] [address] Bety Mckay MA from Last 3 Months Immunizations Immunization Administration Dates Next Due Tdap 10/13/2017 Zoster, live 10/28/2012 Family History Medical History Relation Name Comments Coronary artery disease Father Hypertension Father Relation Name Status Comments Father Mother Social History Tobacco Use Types Packs/Day Years Used Date Smoking Tobacco: Former Cigarettes Smokeless Tobacco: Never Tobacco Cessation:Counseling Given: Not Answered Alcohol Use Standard Drinks/Week Comments Not Currently 0 (1 standard drink = 0.6 oz pur e alcohol) [place] Safety & Environment Answer Date Rec orded Fear of Current or Ex-Partner Not on file Emotionally Abused Not on file 06/11/2023 Physically Abused Not on file 06/11/2023 Sexually Abused Not on file 06/11/2023 Physically or Sexually Abused Not on file Sex and Gender Information Value Date Recorded Sex Assigned at Not on file Legal Sex Male 10:32 PM EDT Gender Identity Not on file Sexual Orientation Not on file Last Filed Vital Signs Vital Sign Reading Time Taken Comments Blood Pressure 128/74 09/05/2024 9:55 AM EDT Pulse 79 09/05/2024 9:55 AM EDT Temperature - - Respiratory Rate - - Oxygen Saturation 99% 09/05/2024 9:55 AM EDT Inhaled Oxygen Concentration - - Weight 67.6 kg (149 lb) 09/05/2024 9:55 AM EDT Height 162.6 cm (5' 4 ) 09/05/2024 9:55 AM EDT Body Mass Index 25.58 09/05/2024 9:55 AM EDT Plan of Treatment Health Maintenance Due Date Last Done Comments Diabetes: Hemoglobin A1C 1940 Medicare Annual Wellness (AWV) 1940 Diabetes: Retinopathy Screening 1952 Depression Screening 1954 Diabetes: Urine Protein Screening 1961 Pneumococcal Vaccine: 50+ Years (1 of 2 - PCV) 1961 Fall Risk Screening 09/19/2007 Zoster Vaccines (2 of 2) 07/16/2018 019, 10/28/2012 COVID-19 Vaccine (3 - 2023-2 5 season) 2023 11/20/2020, 10/30/2020 Influenza Vaccine (Season Ended) 2024 Adult Tetanus 10/14/2027 10/13/2017 HIB Vaccines Aged Out No longer eligi ble based on patient's age to complete this topic HPV Vaccines Aged Out No longer eligi ble based on patient's age to complete this topic IPV Vaccines Aged Out No longer eligi ble based on patient's age to complete this topic Meningococcal B Vaccine Aged Out No l onger eligible based on patient's age to complete this topic Meningococcal Vaccine Aged Out No dustin sam eligible based on patient's age to complete this topic Rotavirus Vaccines Aged Out No longer eligible based on patient's age to complete this topic Insurance [employer] Care Teams Display Department Manager Relationship Specialty Start Date End Date Scott Tai MD PCP - General Internal Medicine 12/09/22
--- OUTSIDE RECORDS SUMMARY | 2024-10-05 08:48 | XMS_ITS | Encounter Summary ---
Author Organization [facility] Address [address] [facility] [place] [address] Care Team Providers Care Construction Framer Name Role Phone Scott Tai MD Unavailable [phone] Scott Tai MD Primary Care Provider [phone] Shelley Gilmore RN Unavailable [phone] Ruma Fernandes LPN Unavailable Encounter Details Date Type Department Care Team (Late st Contact Info) Description 05/25/2023 Abstract [facility] [address] [facility] [address] [place] [id number] Scott Tai MD 112 [facility] 110 [place] [address] Social History Tobacco Use Types [...] and Family Not on file 12/02/2022 Attends [employer] Services Not on file 12/02 Active Member [...] Recorded Patient Health Questionnaire-2 Score 0 01/08/2023 [facility] of Occupat ional Health - Occupational Stress [...] place to sleep or slept in a custodial (including now)? No 12/02/2022 Sex and Gender [...] Office Visit [facility] [address] [facility] [address] [place] [address] Scott Tai MD [address] [facility] [address] [place] [address] documented as of this encounter Visit Diagnoses Not on filedocumented in this encounter Care Teams Construction Framer Relationship Specialty Start Date End Date Scott Tai MD [address] [facility] [address] [place] [address] PCP - Lashon PASCUAL 04/20/21 Scott Tai MD [address] [facility] [address] [place] [address] PCP - General Internal Medicine 10/22/22 Shelley Gilmore, ALYCIA [address] [place] [address] Clinical Advocate Family Medicine 05/27/24 07/08/24 Ruma Fernandes LPN [address] [facility] [address] [place] [address] 07/08/24 documented as of this encounter
--- OUTSIDE RECORDS SUMMARY | 2024-10-05 08:48 | XMS_ITS ---
Author Organization [facility] Address [address] [place] [address] Care Team Providers Care Talent Acquisition Sourcer Name Role Phone Scott Tai MD Unavailable [phone] Scott Tai MD Primary Care Provider [phone] Ruma Fernandes LPN Unavailable Chronic Care Management (CCM) Status:Enrolled (Active) Start date:09/04/2022 Enrollment date:09/04/2022 Overview 05/11/23, 9:39 AM - Shuthursday, DELICIA- Patient gives verbal consent to be enrolled in CCM Program and understands there could be a bill for this service. Case Team Name Relationship Phone Ruma Fernandes LPN(Responsible Staff) [phone] Continued Care and Services Coordination
--- OUTSIDE RECORDS SUMMARY | 2024-10-05 08:48 | XMS_ITS | Encounter Summary ---
Author Organization [facility] Address [address] [place] [address] Care Team Providers Care Audit Specialist Name Role Phone Scott Tai MD Unavailable [phone] Scott Tai MD Primary Care Provider Shelley Gilmore RN Unavailable [phone] Ruma Fernandes LPN Unavailable Encounter Details Date Type Department Care Team (Late st Contact Info) Description 03/27/2023 Orders Only [facility] [address] [facility] [address] [place] [address] A, Unknown Practice [address] [id number] Social History Tobacco Use Types Packs/Day Years [...] and Family Not on file 12/02/2022 Attends [employer] Not on file 12/02 Active Member [...] Recorded Patient Health Questionnaire-2 Score 0 01/08/2023 [facility] - Occupational Stress Questionnaire Answer Date [...] place to sleep or slept in a retirement (including now)? No 12/02/2022 Sex and Gender [...] Visit [facility] [address] [facility] [address] [place] [address] Scott Tai MD [address] [facility] [address] [place] [address] documented as of this encounter Procedures Procedure Name Priority Date/Time Associated Diagnosis Comments ECHOCARDIOGRAM WITH DOPPLER IF INDICATED Routine 03/26/2023 11:11 AM EST documented in this encounter Results * ECHOCARDIOGRAM WITH DOPPLER IF INDICATED (03/26/2023 11:11 AM EST) Anatomical Region Laterality Modality Radiographic Angie ging us Unknown Practice A IMG XR PROCEDURES Final Resul t documented in this encounter Visit Diagnoses Not on filedocumented in this encounter Care Teams Audit Specialist Relationship Specialty Start Date End Date Scott Tai MD [address] [facility] [address] [place] [address] PCP - Lashon PASCUAL 04/20/21 Scott Tai MD [address] [facility] [address] [place] [address] PCP - General Internal Medicine 7/5/23 Shelley Gilmore, RN [address] [place] [address] Clinical Advocate Family Medicine 05/27/24 07/08/24 Ruma Fernandes LPN 112 [facility] [address] [place] [address] 07/08/24 documented as of this encounter
--- OUTSIDE RECORDS SUMMARY | 2024-10-05 08:48 | XMS_ITS | Encounter Summary ---
Author Organization [facility] Address [address] [place] [address] Care Team Providers Care Home Delivery Driver Name Role Phone Scott Tai MD Unavailable Scott Tai MD Primary Care Provider [phone] Shelley Gilmore RN Unavailable [phone] Ruma Fernandes LPN Unavailable Encounter Details Date Type Department Care Team (Late st Contact Info) Description 03/09/2024 Clinisync Result Encounter [facility] External Department Unsolicited Provider, Generic External Data Social History Tobacco Use Types Packs/Day Years [...] 11/10/2023 How often do you attend chur ch or denominational services? 1 to 4 times per year 11/10/2023 Do you belong to any clubs o r organizations such as islam groups, unions, fraternal or athletic groups, or [...] Recorded Patient Health Questionnaire-2 Score 0 01/13/2024 [facility] - Occupational Stress Questionnaire Answer Date Recorded [...] place to sleep or slept in a prison (including now)? No 12/02/2022 Sex and Gender Information Value Date Recorded Sex Assigned at Not on file Legal Sex Male 6:45 PM EDT Gender Identity Not on file Sexual Orientation Not on file documented as of this encounter Plan of Treatment Upcoming Encounters Date Type Department Care Team (Late st Contact Info) Description 05/04/2025 8:30 AM EST Office Visit [facility] [address] [address] Scott Tia MD 112 [facility] 110 [place] [address] documented as of this encounter Procedures Procedure Name Priority Date/Time Associated Diagnosis Comments CA ECHO DOPPLER COMPLETE 03/09/2024 1:26 PM EST documented in this encounter Results * CA ECHO DOPPLER COMPLETE (03/09/2024 1:26 PM EST) Anatomical Region Laterality Modality Other 03/09/2024 1:26 PM EST Narrative 03/09/2024 1:27 PM EST The [address] [address] Cardiology Report Signed Patient: RADHA CABELLO MR#: [id number] : 1940 Acct:[id number] Age/Sex: 83 / M ADM Date: 03/09/24 Loc: CARD Attending Dr: CANDI QUIROS Ordering Physician: CANDI QUIROS Date of Service: 03/09/24 Procedure(s): CA echo doppler complete Accession Number(s): [id number] cc: CANDI QUIROS; SCOTT TAI Patient Name: RADHA CABELLO MR#: [id number] : 1940 Exam Date: 03/09/2024 Ordering Doctor: CANDI QUIROS M.D. ECHOCARDIOGRAM REPORT PROCEDURE: CA ECHO DOPPLER COMPLETE INDICATIONS: Chronic systolic heart failure COMPARISON: None. DESCRIPTION: COMPLETE ECHOCARDIOGRAM Real-time transthoracic echocardiography with 2D, M-mode, spectral and color flow Doppler performed. QUALITY: Technical quality was good. LEFT VENTRICLE: Normal chamber size. Normal left ventricular wall thickness. Global left ventricular systolic function is moderately decreased. There is akinesis of the mid and distal septum, apex, apical inferior and apical anterior segments. LV EF: Visual estimation of left ventricular ejection fraction is 35-40% DIASTOLIC: Grade I diastolic dysfunction. ATRIAL SEPTUM: LEFT ATRIUM: Moderate dilatation. RIGHT ATRIUM: Moderate dilatation. RIGHT VENTRICLE:Normal chamber size. Normal right ventricular systolic function. TRICUSPID VALVE: Normal mobility and thickness. No stenosis with trivial regurgitation. No evidence of pulmonary hypertension. RVSP 33 mmHg MITRAL VALVE: Normal mobility and thickness. No evidence of mitral valve stenosis. There is no mitral annular calcification. Trivial mitral regurgitation. AORTIC VALVE: Normal trileaflet appearance. Thickened aortic valve. Normal leaflet mobility. No evidence of aortic valve stenosis. Trivial aortic regurgitation. AORTIC ROOT: Normal diameter and appearance. PULMONIC VALVE: Normal thickness and mobility. No stenosis. Mild regurgitation. PERICARDIUM: No evidence of pericardial effusion. IVC: Collapses with inspirations. Normal size. PLEURA: CONCLUSION: 1. The left ventricle is normal in size and exhibits segmental wall motion abnormalities consistent with a prior left anterior descending myocardial infarction. Systolic function is moderately reduced and estimated LVEF is 35 to 40%. 2. Normal right ventricular size and systolic function. 3. Moderate biatrial dilatation. 4. No significant valvular dysfunction. 5. Normal right-sided pressures. Adult Echocardiography Procedure Report Left Ventricle LVEDD (3.7 - 5.6 cm): 4.86 cm LVESD (2.2 - 4.0 cm): 4.00 cm LVIVS thickness (0.6 - 1.2 cm): 1.04 cm LVPW thickness (0.5 - 1.0 cm): 0.95 cm e': 0.06 m/s E - e': 6.98 LVOT Max Gradient: 2.57 mm[Hg] LVOT Area (cm2): 0.80 m/s Peak Velocity (LVOT): 0.80 m/s Mean Velocity (LVOT): 0.57 m/s LVOT Diameter 2.00 cm Left Ventricular Ejection Fraction: 35-40 % Left Atrium LA Volume Index (2D A2C): 37.44 ml/m2 Left Atrium Systolic Dimension: 4.86 cm Mitral Valve MV E to A Ratio: 0.45 Mitral Valve A-Wave Peak Velocity: 0.99 m/s Mitral Valve E-Wave Peak Velocity: 0.44 m/s Right Ventricle RV Internal Diastolic Dimension: 3.97 cm Aorta AO Root Diam: 3.31 cm Ascending Ao Diam: 3.10 cm Aortic Valve AoV Area (Peak Adarsh): 2.40 cm2, 2.40 cm2 AoV Area (VTI): 2.17 cm2, 2.17 cm2 Peak Velocity(Antegrade Flow): 1.05 m/s Peak Gradient(Antegrade Flow): 4.39 mm[Hg] Mean Velocity(Antegrade Flow): 0.76 m/s Mean Gradient(Antegrade Flow): 2.59 mm[Hg] Velocity Time Integral: 22.61 cm Tricuspid Valve Peak Velocity (Regurgitant Flow): 2.56 m/s, 2.42 m/s, 2.76 m/s Pulmonic Valve Mean Gradient: 1.94 mm[Hg], 2.21 mm[Hg], 2.46 mm[Hg] Mean Velocity: 0.62 m/s, 0.67 m/s, 0.75 m/s Peak Velocity: 1.14 m/s Peak Gradient: 4.81 mm[Hg], 5.70 mm[Hg], 5.03 mm[Hg] Right Atrium Right Atrium Systolic Pressure: 53.71 ml, 53.71 ml Dictated by: Earl Patrick M.D. on 03/09/2024 at 13:18 Approved by: Earl Patrick M.D. on 03/09/2024 at 13:26 Dictated By: EARL PATRICK Signed By: 03/09/24 1327 DD/ 132 TD/TT: Analytics Leader: Procedure Note Radiology, Radiologist, - 03/09/2024 [place] [address] Cardiology Report Signed Patient: RADHA CABELLO EMR#: [id number] : 1940cct:[id number] Age/Sex: 83 / MADM Date: 03/09/24 Loc: CARD Attending Dr: CANDI QUIROS Ordering Physician: CANDI QUIROS Date of Service: 03/09/24 Procedure(s): CA echo doppler complete Accession Number(s): [id number] cc: CANDI QUIROS; SCOTT TAI Patient Name: RADHA CABELLO MR#: [id number] : 1940 Exam Date: 03/09/2024 Ordering Doctor: CANDI QUIROS M.D. ECHOCARDIOGRAM REPORT PROCEDURE: CA ECHO DOPPLER COMPLETE INDICATIONS: Chronic systolic heart failure COMPARISON: None. DESCRIPTION: COMPLETE ECHOCARDIOGRAM Real-time transthoracic echocardiography with 2D, M-mode, spectral and color flow Dopplerperformed. QUALITY: Technical quality was good. LEFT VENTRICLE: Normal chamber size. Normal left ventricular wall thickness. Global left ventricular systolic function is moderatelydecreased. There is akinesis of the mid and distal septum, apex, apical inferior and apical anterior segments. LV EF: Visual estimation of left ventricular ejection fraction is35-40% DIASTOLIC: Grade I diastolic dysfunction. ATRIAL SEPTUM: LEFT ATRIUM: Moderate dilatation. RIGHT ATRIUM: Moderate dilatation. RIGHT VENTRICLE:Normal chamber size. Normal right ventricular systolic function. TRICUSPID VALVE: Normal mobility and thickness. No stenosis with trivial regurgitation. No evidence of pulmonary hypertension. RVSP 33 mmHg MITRAL VALVE: Normal mobility and thickness. No evidence of mitralvalve stenosis. There is no mitral annular calcification. Trivial mitral regurgitation. AORTIC VALVE: Normal trileaflet appearance. Thickened aortic valve. Normal leaflet mobility. No evidence of aortic valve stenosis. Trivialaortic regurgitation. AORTIC ROOT: Normal diameter and appearance. PULMONIC VALVE: Normal thickness and mobility. No stenosis. Mild regurgitation. PERICARDIUM: No evidence of pericardial effusion. IVC: Collapses with inspirations. Normal size. PLEURA: CONCLUSION: 1. The left ventricle is normal in size and exhibits segmental wall motion abnormalities consistent with a prior left anterior descending myocardial infarction. Systolic function is moderately reduced and estimated LVEF is35 to 40%. 2. Normal right ventricular size and systolic function. 3. Moderate biatrial dilatation. 4. No significant valvular dysfunction. 5. Normal right-sided pressures. Adult Echocardiography Procedure Report Left Ventricle LVEDD (3.7 - 5.6 cm): 4.86 cm LVESD (2.2 - 4.0 cm): 4.00 cm LVIVS thickness (0.6 - 1.2 cm): 1.04 cm LVPW thickness (0.5 - 1.0 cm): 0.95 cm e': 0.06 m/s E - e': 6.98 LVOT Max Gradient: 2.57 mm[Hg] LVOT Area (cm2): 0.80 m/s Peak Velocity (LVOT): 0.80 m/s Mean Velocity (LVOT): 0.57 m/s LVOT Diameter 2.00 cm Left Ventricular Ejection Fraction: 35-40 % Left Atrium LA Volume Index (2D A2C): 37.44 ml/m2 Left Atrium Systolic Dimension: 4.86 cm Mitral Valve MV E to A Ratio: 0.45 Mitral Valve A-Wave Peak Velocity: 0.99 m/s Mitral Valve E-Wave Peak Velocity: 0.44 m/s Right Ventricle RV Internal Diastolic Dimension: 3.97 cm Aorta AO Root Diam: 3.31 cm Ascending Ao Diam: 3.10 cm Aortic Valve AoV Area (Peak Adarsh): 2.40 cm2, 2.40 cm2 AoV Area (VTI): 2.17 cm2, 2.17 cm2 Peak Velocity(Antegrade Flow): 1.05 m/s Peak Gradient(Antegrade Flow): 4.39 mm[Hg] Mean Velocity(Antegrade Flow): 0.76 m/s Mean Gradient(Antegrade Flow): 2.59 mm[Hg] Velocity Time Integral: 22.61 cm Tricuspid Valve Peak Velocity (Regurgitant Flow): 2.56 m/s, 2.42 m/s, 2.76 m/s Pulmonic Valve Mean Gradient: 1.94 mm[Hg], 2.21 mm[Hg], 2.46 mm[Hg] Mean Velocity: 0.62 m/s, 0.67 m/s, 0.75 m/s Peak Velocity: 1.14 m/s Peak Gradient: 4.81 mm[Hg], 5.70 mm[Hg], 5.03 mm[Hg] Right Atrium Right Atrium Systolic Pressure: 53.71 ml, 53.71 ml Dictated by: Earl Patrick M.D. on 03/09/2024 at 13:18 Approved by: Earl Patrick M.D. on 03/09/2024 at 13:26 Dictated By: EARL PATRICK Signed By:03/09/241326 DD/ 25 TD/TT: Analytics Leader: us Generic External Data Provider [facility] Final Result documented in this encounter Visit Diagnoses Not on filedocumented in this encounter Care Teams Home Delivery Driver Relationship Specialty Start Date End Date Scott Tai MD [address] [address] PCP - Lashon PASCUAL 04/20/21 Scott Tai MD [address] [facility] [address] [place] [address] PCP - General Internal Medicine 10/22/22 Shelley Gilmore RN [address] [place] [address] Clinical [facility] Family [facility] 05/27/24 07/08/24 Ruma Fernandes LPN [address] [facility] 110 [place] [address] 07/08/24 documented as of this encounter
--- OUTSIDE RECORDS SUMMARY | 2024-10-05 08:48 | XMS_ITS | Encounter Summary ---
Author Organization [facility] Address [address] [place] [address] Care Team Providers Care Veneer Jointer Operator Name Role Phone Scott Tai MD Unavailable [phone] Scott Tai MD Primary Care Provider [phone] Shelley Gilmore RN Unavailable [phone] Ruma Fernandes LPN Unavailable Encounter Details Date Type Department Care Team (Late st Contact Info) Description 03/26/2023 Clinisync Result Encounter [facility] External Department Unsolicited [...] and Family Not on file 12/02/2022 Attends [employer] Not on file 12/02 Active Member [...] Recorded Patient Health Questionnaire-2 Score 0 [facility]/2023 [facility] - Occupational Stress Questionnaire Answer [...] place to sleep or slept in a longterm (including now)? No 12/02/2022 Sex and Gender Information Value Date Recorded Sex Assigned at Not on file Legal Sex Male 6:45 PM EDT Gender Identity Not on file Sexual Orientation Not on file documented as of this encounter Plan of Treatment Upcoming Encounters Date Type Department Care Team (Late st Contact Info) Description 05/04/2025 8:30 AM EST Office Visit [facility] 112 [facility] 110 [place] [address] Scott Tai MD 112 [facility] 110 [place], [place] [id number] documented as of this encounter Procedures Procedure Name Priority Date/Time Associated Diagnosis Comments CARD ECHO LIMITED STUDY 03/26/2023 5:16 PM EST documented in this encounter Results * CARD ECHO LIMITED STUDY (03/26/2023 5:16 PM EST) Anatomical Region Laterality Modality Radiographic Angie ging 03/26/2023 5:16 PM EST Narrative 03/26/2023 5:17 PM EST [address] [address] Cardiology Report Signed Patient: RADHA CABELLO MR#: [id number] : 1940 Acct:[id number] Age/Sex: 82 / M ADM Date: 03/26/23 Loc: MIRIAM Attending Dr: Yaneth Harry NP Ordering Physician: Yaneth Harry NP Date of Service: 03/26/23 Procedure(s): CA echo limited Accession Number(s): [id number] cc: SCOTT TAI ; Yaneth Harry NP Patient Name: RADHA CABELLO MR#: [id number] : 1940 Exam Date: 03/26/2023 Ordering Doctor: MRS. AGUIRRE LÁZARO LÓPEZ ECHOCARDIOGRAM REPORT PROCEDURE: CA ECHO LIMITED INDICATIONS: Chronic systolic heart failure COMPARISON: None. DESCRIPTION: Limited ECHOCARDIOGRAM Real-time transthoracic echocardiography with 2D and M-mode performed. QUALITY: Technical quality was good. LEFT VENTRICLE: Normal chamber size. Mild concentric left ventricular hypertrophy. Global left ventricular systolic function is mildly to moderately reduced. There is evidence of akinesis of the entire mid and distal septum and apex and hypokinesis of the distal anterior and inferior segments with good contractility of the remaining segments. LV EF: Mildly to moderately reduced left ventricular ejection fraction, (40%). DIASTOLIC: ATRIAL SEPTUM: LEFT ATRIUM: Mild dilatation. RIGHT ATRIUM: Normal chamber size. RIGHT VENTRICLE: Mild dilatation. Normal right ventricular systolic function. TRICUSPID VALVE: Normal mobility and thickness. MITRAL VALVE: Normal mobility and thickness. AORTIC VALVE: Normal trileaflet appearance. Mildly calcified aortic valve. Normal leaflet mobility. AORTIC ROOT: Normal diameter and appearance. PULMONIC VALVE: Normal thickness and mobility. PERICARDIUM: No evidence of pericardial effusion. IVC: Collapses with inspirations. normal size. PLEURA: CONCLUSION: 1. Left ventricular systolic function is mildly to moderately reduced with segmental wall motion abnormalities suggestive of possible prior LAD territory infarction. Estimated left ventricular ejection fraction is 40%. 2. Normal right ventricular size and systolic function. 3. No pericardial effusion. 4. Limited study performed with no Doppler interrogation as requested. Adult Echocardiography Procedure Report Left Ventricle LVEDD (3.7 - 5.6 cm): 4.87 cm LVESD (2.2 - 4.0 cm): 3.73 cm LVIVS thickness (0.6 - 1.2 cm): 0.96 cm LVPW thickness (0.5 - 1.0 cm): 1.21 cm LVOT Diameter 1.96 cm Left Ventricular Ejection Fraction: 40 % Left Atrium LA Volume Index (2D A2C): 43.05 ml/m2 Left Atrium Systolic Dimension: 4.90 cm Mitral Valve Right Ventricle RV Internal Diastolic Dimension: 4.32 cm Aorta AO Root Diam: 3.23 cm Ascending Ao Diam: 3.02 cm Aortic Valve Tricuspid Valve Pulmonic Valve Right Atrium Right Atrium Systolic Pressure: 60.40 ml, 60.40 ml Dictated by: Earl Patrick M.D. on 03/26/2023 at 17:10 Approved by: Earl Patrick M.D. on 03/26/2023 at 17:15 Dictated By: EARL PATRICK Signed By: 03/26/231716 DD/ 15 TD/TT: Mainstreaming Facilitator: Procedure Note Radiology, Radiologist, MD - 03/27/2023 [place] [address] Cardiology Report Signed Patient: RADHA CABELLO EMR#: [id number] : 1940cct:[id number] Age/Sex: 82 / MADM Date: 03/26/23 Loc: CARD Attending Dr: Yaneth Harry NP Ordering Physician: Yaneth Harry NP Date of Service: 03/26/23 Procedure(s): CA echo limited Accession Number(s): [id number] cc: SCOTT TAI ; Yaneth Harry NP Patient Name: RADHA CABELLO MR#: [id number] : 1940 Exam Date: 03/26/2023 Ordering Doctor: MRS. YANETH HARRY NP ECHOCARDIOGRAM REPORT PROCEDURE: CA ECHO LIMITED INDICATIONS: Chronic systolic heart failure COMPARISON: None. DESCRIPTION: Limited ECHOCARDIOGRAM Real-time transthoracic echocardiography with 2D and M-mode performed. QUALITY: Technical quality was good. LEFT VENTRICLE: Normal chamber size. Mild concentric left ventricular hypertrophy. Global left ventricular systolic function is mildly to moderately reduced. There is evidence of akinesis of the entire mid and distal septum and apex and hypokinesis of the distal anterior and inferior segments with good contractility of the remaining segments. LV EF: Mildly to moderately reduced left ventricular ejectionfraction, (40%). DIASTOLIC: ATRIAL SEPTUM: LEFT ATRIUM: Mild dilatation. RIGHT ATRIUM: Normal chamber size. RIGHT VENTRICLE: Mild dilatation. Normal right ventricular systolic function. TRICUSPID VALVE: Normal mobility and thickness. MITRAL VALVE: Normal mobility and thickness. AORTIC VALVE: Normal trileaflet appearance. Mildly calcified aorticvalve. Normal leaflet mobility. AORTIC ROOT: Normal diameter and appearance. PULMONIC VALVE: Normal thickness and mobility. PERICARDIUM: No evidence of pericardial effusion. IVC: Collapses with inspirations. normal size. PLEURA: CONCLUSION: 1. Left ventricular systolic function is mildly to moderately reduced with segmental wall motion abnormalities suggestive of possible prior LADterritory infarction. Estimated left ventricular ejection fraction is 40%. 2. Normal right ventricular size and systolic function. 3. No pericardial effusion. 4. Limited study performed with no Doppler interrogation as requested. Adult Echocardiography Procedure Report Left Ventricle LVEDD (3.7 - 5.6 cm): 4.87 cm LVESD (2.2 - 4.0 cm): 3.73 cm LVIVS thickness (0.6 - 1.2 cm): 0.96 cm LVPW thickness (0.5 - 1.0 cm): 1.21 cm LVOT Diameter 1.96 cm Left Ventricular Ejection Fraction: 40 % Left Atrium LA Volume Index (2D A2C): 43.05 ml/m2 Left Atrium Systolic Dimension: 4.90 cm Mitral Valve Right Ventricle RV Internal Diastolic Dimension: 4.32 cm Aorta AO Root Diam: 3.23 cm Ascending Ao Diam: 3.02 cm Aortic Valve Tricuspid Valve Pulmonic Valve Right Atrium Right Atrium Systolic Pressure: 60.40 ml, 60.40 ml Dictated by: Earl Patrick M.D. on 03/26/2023 at 17:10 Approved by: Earl Patrick M.D. on 03/26/2023 at 17:15 Dictated By: EARL PATRICK Signed By:03/26/231716 DD/ 15 TD/TT: Mainstreaming Facilitator: Generic External Data Provider IMG XR PROCEDURES Final Result documented in this encounter Visit Diagnoses Not on filedocumented in this encounter Care Teams Veneer Jointer Operator Relationship Specialty Start Date End Date Scott Tai MD [address] [facility] 110 [place] [address] PCP - Lashon PASCUAL 04/20/21 Scott Tai MD [address] [facility] [address] [place] [address] PCP - General Internal Medicine 10/22/22 Shelley Gilmore, RN [address] [place] [address] Clinical [facility] Family Medicine 05/27/24 07/08/24 Ruma Fernandes LPN 112 [facility] 110 [place] [address] 07/08/24 documented as of this encounter
--- OUTSIDE RECORDS SUMMARY | 2024-10-05 08:48 | XMS_ITS | Encounter Summary ---
Author Organization [facility] Address [address] [place] [address] Care Team Providers Care Batch Maker Name Role Phone Scott Tai MD Unavailable [phone] Scott Tai MD Primary Care Provider [phone] Shelley Gilmore RN Unavailable [phone] Ruma Fernandes LPN Unavailable Encounter Details Date Type Department Care Team (Late st Contact Info) Description 04/08/2023 Orders Only [facility] [address] [facility] [address] [place] [address] A, Unknown Practice [address] [id number] Social History Tobacco Use Types Packs/Day Years [...] Recorded Patient Health Questionnaire-2 Score 0 01/08/2023 [facility] - Occupational Stress Questionnaire Answer Date [...] FM [address] [place] [address] [place] [address] Scott Tai MD [address] [facility] [address] [place] [address] documented as of this encounter Procedures Procedure Name Priority Date/Time Associated Diagnosis Comments ELECTROCARDIOGRAM REPORT Routine 023 8:28 AM EST documented in this encounter Results * Electrocardiogram Report (04/07/2023 8:28 AM EST) us Unknown Practice A IN CLINIC/BEDSIDE ORDERABLES Final Result documented in this encounter Visit Diagnoses Not on filedocumented in this encounter Care Teams Batch Maker Relationship Specialty Start Date End Date Scott Tai MD [address] [facility] [address] [place] [address] PCP - Lashon PASCUAL 04/20/21 Scott Tai MD [address] [facility] [address] [place] [address] PCP - General Internal Medicine 10/22/22 Shelley Gilmore, RN [address] [place] [address] Clinical [facility] Family [facility] 05/27/24 07/08/24 Ruma Fernandes LPN [address] [address] 07/08/24 documented as of this encounter
--- OUTSIDE RECORDS SUMMARY | 2024-10-05 08:48 | XMS_ITS | Referral Summary ---
Author Organization [facility] Address [address] [place] [address] Care Team Providers Care Alarm Installer Name Role Phone Scott Tai MD Primary Care Provider [phone] Encounters Date Type Department Care Team Description 09/05/2024 9:45 AM EDT Office Visit [facility] [address] [place] [address] Kyle Patrick MD Coronary artery disease involving [place] coronary artery of [place] heart without angina pectoris (Primary Dx); History of coronary artery bypass surgery; Chronic systolic congestive heart failure (CMS/HCC); Primary hypertension; Mixed hyperlipidemia 09/02/2024 Telephone [facility] [address] [place] [address] Bety Mckay MA from Last 3 Months Allergies No known active allergies Medications aspirin [...] 1 tablet by sublingual route as needed. Active pantoprazole (ProtoNix) 40 mg EC tablet [...] the morning. 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/2023 1 04/21/2022 Ischemic [...] and hypotension Diverticulosis of colon 10/23/2022 12/10/19 Dyspepsia 10/23/2022 12/09/2022 Elevated PSA 10/23/2022 12/09/2022 History of coronary artery bypass graft 10/24/1912/09/2022 Idiopathic chronic pancreatitis 10/23/2022 12/09/2022 Impotence of [...] reduced by half Old myocardial infarction 08/21/2022 Immunizations Immunization Administration Dates Next Due Tdap 10/13/2017 Zoster, live 10/28/2012 Social History Tobacco Use Types Packs/Day Years [...] 09/05/2024 9:55 AM EDT Plan of Treatment Not on file Insurance [employer] MED[employer]ARE ADVANTAGE Care Teams Alarm Installer Relationship Specialty Start Date End Date Scott Tai MD PCP - General Internal Medicine 12/09/22
--- OUTSIDE RECORDS SUMMARY | 2024-10-05 08:48 | XMS_ITS | Encounter Summary ---
Author Organization [facility] Address [address] [facility] [place] [address] Care Team Providers Care Release Engineer Name Role Phone Scott Tai MD Unavailable [phone] Scott Tai MD Primary Care Provider Ruma Fernandes LPN Unavailable Encounter Details Date Type Department Care Team (Late st Contact Info) Description 08/09/2024 Abstract [facility] [address] [facility] 110 [place] [address] Scott Tai MD 112 [facility] 110 [place], [place] [id number] Social History Tobacco Use Types Packs/Day Years [...] week 11/10/2023 How often do you attend [facility] or sabianist services? 1 to 4 times per year 11/10/2023 Do you belong to any clubs o r organizations such as presybeterian groups, unions, fraternal or athletic groups, or [...] Recorded Patient Health Questionnaire-2 Score 0 05/04/2024 [facility] of Occupat ional Health - Occupational Stress [...] place to sleep or slept in a alf (including now)? No 12/02/2022 Sex and Gender Information Value Date Recorded Sex Assigned at Not on file Legal Sex Male 6:45 PM EDT Gender Identity Not on file Sexual Orientation Not on file documented as of this encounter Plan of Treatment Upcoming Encounters Date Type Department Care Team (Late st Contact Info) Description 05/04/2025 8:30 AM EST Office Visit [facility] [address] [facility] 110 [place] [address] Scott Tai MD [address] [facility] 110 [place] [address] documented as of this encounter Visit Diagnoses Not on filedocumented in this encounter Care Teams Release Engineer Relationship Specialty Start Date End Date Scott Tai MD [address] [facility] 110 [place] [address] PCP - Lashon PASCUAL 04/20/21 Scott Tai MD [address] [facility] 110 [place] [address] PCP - General Internal Medicine 7/5/23 Ruma Fernandes LPN [address] [facility] 110 [place] [address] 07/08/24 documented as of this encounter
--- OUTSIDE RECORDS SUMMARY | 2024-10-05 08:49 | XMS_ITS | Encounter Summary ---
Author Organization [facility] Address [address] [facility] [place] [address] Care Team Providers Care Garment Liner Name Role Phone Scott Tai MD Unavailable [phone] Scott Tai MD Primary Care Provider [phone] Shelley Gilmore RN Unavailable [phone] Ruma Fernandes LPN Unavailable Encounter Details Date Type Department Care Team (Late st Contact Info) Description 10/27/2022 Orders Only [facility] [address] [email or web address] 110 [place] [address] A, Unknown Practice [address] [place], [place] [address] Social History Tobacco Use Types Packs/Day Years Used Date Smoking Tobacco: Never Smokeless Tobacco: Never Sex and Gender Information Value Date Recorded Sex Assigned at Not on file Legal Sex Male 6:45 PM EDT Gender Identity Not on file Sexual Orientation Not on file documented as of this encounter Plan of Treatment Upcoming Encounters Date Type Department Care Team (Late st Contact Info) Description 05/04/2025 8:30 AM EST Office Visit [facility] [address] [facility] [address] [place] [address] Scott Tai MD [address] [facility] 110 [place] [address] documented as of this encounter Procedures Procedure Name Priority Date/Time Associated Diagnosis Comments XR CHEST 1 VIEW Routine 10/20/2022 3:00 PM EDT ELECTROCARDIOGRAM REPORT Routine 023 2:59 PM EDT documented in this encounter Results * XR chest 1 view (10/20/2022 3:00 PM EDT) Anatomical Region Laterality Modality Chest Radiographic Angie ging us Jossue Watkins MD IMG XR PROCEDURES Final Res ult * Electrocardiogram Report (10/20/2022 2:59 PM EDT) us Unknown Practice A IN CLINIC/BEDSIDE ORDERABLES Final Result documented in this encounter Visit Diagnoses Not on filedocumented in this encounter Care Teams Garment Liner Relationship Specialty Start Date End Date Scott Tai MD [address] [facility] 110 [place] [address] PCP - Lashon PASCUAL 04/20/21 Scott Tai MD [address] [facility] 110 [place] [address] PCP - General Internal Medicine 10/22/22 Shelley Gilmore, RN [address] [place] [address] Clinical Advocate Family Medicine 05/27/24 07/08/24 Ruma Fernandes LPN [address] [facility] 110 [place] [address] 07/08/24 documented as of this encounter
--- OUTSIDE RECORDS SUMMARY | 2024-10-05 08:49 | XMS_ITS | Encounter Summary ---
Author Organization [facility] Address [address] [facility] [place] [address] Care Team Providers Care Compensation Agent Name Role Phone Scott Tai MD Unavailable [phone] Scott Tai MD Primary Care Provider [phone] Shelley Gilmore RN Unavailable [phone] Ruma Fernandes LPN Unavailable Encounter Details Date Type Department Care Team (Late st Contact Info) Description 05/25/2023 Abstract [facility] [address] [facility] 110 [place] [phone] Scott Tai MD [address] [facility] 110 [place] [address] Social History Tobacco Use Types [...] and Family Not on file 12/02/2022 Attends Yazidism Services Not on file 12/02 Active Member [...] Recorded Patient Health Questionnaire-2 Score 0 01/08/2023 [facility] of Occupat ional Health - Occupational Stress [...] place to sleep or slept in a detention (including now)? No 12/02/2022 Sex and Gender [...] Office Visit [facility] [address] [facility] 110 [place] [address] Scott Tai MD [address] [facility] [address] [place] [address] documented as of this encounter Visit Diagnoses Not on filedocumented in this encounter Care Teams Compensation Agent Relationship Specialty Start Date End Date Scott Tai MD [address] [place] [address] [place] [address] PCP - Lashon PASCUAL 04/20/21 Scott Tai MD [address] [facility] [address] [place] [address] PCP - General Internal Medicine 10/22/22 Shelley Gilmore, ALYCIA [address] [place] [address] Clinical Advocate Family Medicine 05/27/24 07/08/24 Ruma Fernandes LPN [address] [facility] [address] [place] [address] 07/08/24 documented as of this encounter
--- OUTSIDE RECORDS SUMMARY | 2024-10-05 08:49 | XMS_ITS | Clinical Summary ---
Author Organization [employer] Address [id number] [address] [place] [address] Care Team Providers Care Assembler Trim Name Role Phone Scott Tai MD Primary Care Provider [phone] Allergies No known active allergies Medications acetaminophen-co deine (TYLENOL #3) 300-30 mg per tablet Take 1 tablet by mouth every 4 (four) hours as needed for pain. Active atorvastatin (LIPITOR) 40 mg tablet Take 40 mg by mouth daily. Active carvediloL (COREG) 12.5 mg tablet Take 12.5 mg by mouth 2 (two) times a day with meals. Active CEPHalexin (KEFLEX) 500 mg capsule Take 500 mg by mouth 4 (four) times a day. Active hydroCHLOROthiaz dylan (MICROZIDE) 12.5 mg capsule Take 12.5 mg by mouth daily. Active isosorbide mononitrate (IMDUR) 30 mg 24 hr tablet Take 30 mg by mouth daily. Active pantoprazole (PROTONIX) 40 mg EC tablet Take 40 mg by mouth daily. Active lisinopriL (PRINIVIL,ZESTRI L) 40 mg tablet Take 40 mg by mouth daily. Active clopidogreL (PLAVIX) 75 mg tablet Take 75 mg by mouth daily. Active aspirin 81 mg Take 81 mg by mouth daily. Active ciprofloxacin HCl (CIPRO) 250 mg tablet Take 1 tablet (250 mg total) by mouth 2 (two) times a day. 14 tablet 12/07/2019 Active Active Problems No known active problems Family History Medical History Relation Name Comments Heart attack Father No Known Problems Mother Relation Name Status Comments Father Mother Social History Tobacco Use Types Packs/Day Years Used Date Smoking Tobacco: Former Cigarettes Cigars Smokeless Tobacco: Former Chew Quit: 1994 Alcohol Use Standard Drinks/Week Comments Not Currently 0 (1 standard drink = 0.6 oz pur e alcohol) Childcare Answer Date Recorded Childcare Unknown 11/21/2019 Employment Answer Date Recorded Employment Unknown 11/21/2019 Purpose - Life Answer Date Recorded Purpose and direction in life Unknown Sex and Gender Information Value Date Recorded Sex Assigned at Not on file Legal Sex Male 3:39 PM EDT Gender Identity Not on file Sexual Orientation Not on file Last Filed Vital Signs Vital Sign Reading Time Taken Comments Blood Pressure 130/82 12/07/2019 1:44 PM EDT Pulse 62 12/02/2019 11:35 AM EDT Temperature 36.7 C (98 F) 12/07/2019 1:44 PM EDT Respiratory Rate 20 12/02/2019 11:35 AM EDT Oxygen Saturation 100% 12/02/2019 11:35 AM EDT Inhaled Oxygen Concentration - - Weight 66.7 kg (147 lb) 12/07/2019 1:44 PM EDT Height 162.6 cm (5' 4 ) 12/07/2019 1:44 PM EDT Body Mass Index 25.23 12/07/2019 1:44 PM EDT Plan of Treatment Health Maintenance Due Date Last Done Comments Depression Screening 1952 Tobacco Screening 1952 DTaP,Tdap and Td Vaccines (1 - Tdap) 1961 Zoster (Shingles) Vaccine (1 of 2) 1992 Fall Risk Screening 09/19/2007 Influenza Vaccine 12/19/2024 Medical Devices Not on file Insurance [facility] MEDIC[facility] Care Teams Assembler Trim Relationship Specialty Start Date End Date Scott Tai MD [address] [facility], [address] [address] PCP - General Internal Medicine 11/23/19
--- OUTSIDE RECORDS SUMMARY | 2024-10-05 08:49 | XMS_ITS | Encounter Summary ---
Author Organization [facility] Address [address] [facility] [place] [address] Care Team Providers Care Chemical Engraver Name Role Phone Scott Tai MD Unavailable [phone] Scott Tai MD Primary Care Provider [phone] Shelley Gilmore RN Unavailable [phone] Ruma Fernandes LPN Unavailable Encounter Details Date Type Department Care Team (Late st Contact Info) Description 01/16/2023 Abstract [facility] [address] [facility] 110 [place] [phone] Joanna Perez PA 112 [facility] 110 [place] [address] Social History Tobacco Use Types Packs/Day Years Used Date Smoking Tobacco: Never Smokeless Tobacco: Never Tobacco Cessation:Counseling Given: Not [...] and Family Not on file 12/02/2022 Attends Anabaptism Services Not on file 12/02 Active Member [...] Recorded Patient Health Questionnaire-2 Score 0 01/08/2023 [facility] of Occupat ional Health - Occupational [...] place to sleep or slept in a correction (including now)? No 12/02/2022 Sex and Gender [...] WAY [facility] 110 [place] [address] Scott Tai MD [address] [facility] [address] [place] [address] documented as of this encounter Visit Diagnoses Not on filedocumented in this encounter Care Teams Chemical Engraver Relationship Specialty Start Date End Date Scott Tai MD [address] [facility] 110 [place] [address] PCP - Lashon PASCUAL 04/20/21 Scott Tai MD [address] [facility] [address] [place] [address] PCP - General Internal Medicine 10/22/22 Shelley Gilmore, RN [address] [place] [address] Clinical Advocate Family Medicine 05/27/24 07/08/24 Ruma Fernandes LPN [address] [facility] [address] [place] [address] 07/08/24 documented as of this encounter
--- OUTSIDE RECORDS SUMMARY | 2024-10-05 08:49 | XMS_ITS | Encounter Summary ---
Author Organization [facility] Address [address] [facility] [place] [address] Care Team Providers Care Catering Truck Operator Name Role Phone Scott Tai MD Unavailable [phone] Scott Tai MD Primary Care Provider [phone] Shelley Gilmore RN Unavailable [phone] Ruma Fernandes LPN Unavailable Encounter Details Date Type Department Care Team (Late st Contact Info) Description 10/22/2022 Orders Only [facility] 112 [facility] 110 [place] [address] Jossue Watkins MD [address] [place] [address] Social History Tobacco Use Types Packs/Day Years Used Date Smoking Tobacco: Never Assessed Sex and Gender Information Value Date Recorded Sex Assigned at Not on file Legal Sex Male 6:45 PM EDT Gender Identity Not on file Sexual Orientation Not on file documented as of this encounter Plan of Treatment Upcoming Encounters Date Type Department Care Team (Late st Contact Info) Description 05/04/2025 8:30 AM EST Office Visit [facility] [address] [facility] 110 [place] [address] Scott Tai MD 112 [facility] 110 [place], [place] [address] documented as of this encounter Procedures Procedure Name Priority Date/Time Associated Diagnosis Comments XR CHEST 1 VIEW Routine 10/20/2022 8:11 AM EDT documented in this encounter Results * XR chest 1 view (10/20/2022 8:11 AM EDT) Anatomical Region Laterality Modality Chest Radiographic Angie ging us Jossue Watkins MD IMG XR PROCEDURES Final Res ult documented in this encounter Visit Diagnoses Not on filedocumented in this encounter Care Teams Catering Truck Operator Relationship Specialty Start Date End Date Scott Tai MD [address] [facility] 110 [place] [address] PCP - Lashon PASCUAL 04/20/21 Scott Tai MD [address] [facility] 110 [place] [address] PCP - General Internal Medicine 10/22/22 Shelley Gilmore, RN [address] [place] [address] Clinical Advocate Family Medicine 05/27/24 07/08/24 Ruma Fernandes LPN [address] [facility] 110 [place] [address] 07/08/24 documented as of this encounter
--- OUTSIDE RECORDS SUMMARY | 2024-10-05 08:49 | XMS_ITS | Clinical Summary ---
Author Organization [facility] Address [address] [place] [address] Care Team Providers Care Mohs Surgeon Name Role Phone Scott Tai MD Unavailable Scott Tai MD Primary Care Provider [phone] Ruma Fernandes LPN Unavailable Allergies No known active allergies Medications aspirin 81 MG EC tablet take 1 tablet (81MG) by oral route every day Oral Active nitroglycerin (Nitrostat) 0.4 MG SL tablet 2 Active Magnesium 400 MG capsule Take 1 capsule by mouth 1 (one) time each day. Active Multiple Vitamins-Minerals (PRESERVISION AREDS 2 PO) Take 1 tablet by mouth in the morning. Active lisinopril 20 MG tablet Take 20 mg by mouth Daily 4 Active atorvastatin (Lipitor) 40 MG tabletIndications:M ixed hyperlipidemia TAKE 1 TABLET BY MOUTH EVERYDAY AT BEDTIME 100 tablet 3 4 Active carvedilol (Coreg) 6.25 MG tabletIndications:C hronic systolic CHF (congestive heart failure), NYHA class 2 (HCC) TAKE 1 TABLET BY MOUTH EVERY MORNING AND EVENING WITH MEALS 180 tablet 1 5 Active isosorbide mononitrate ER (Imdur) 30 MG 24 hr tabletIndications:C hronic systolic CHF (congestive heart failure), NYHA class 2 (HCC) TAKE 1 TABLET BY MOUTH EVERY DAY 100 tablet 3 5 Active Active Problems Problem Noted Date Diagnosed Date Regular astigmatism, bilateral 03/16/2023 Bilateral hearing loss 02/19/2023 Ischemic cardiomyopathy 12/09/2022 Overview (03/16/2023): Patient has an extensive history of CAD. His last known EF was 40%. That was in April 2020. Last Assessment & Plan: As above Atherosclerotic heart diseas e of [place] coronary artery without angina pectoris 10/23/2022 Atrial enlargement, bilateral 10/23/2022 Basal cell carcinoma of back 10/23/2022 Benign essential hypertension 10/23/2022 Benign prostatic hyperplasia with lower urinary tract symptoms 10/23/2022 Cardiac arrhythmia 10/23/2022 Carpal tunnel syndrome of right wrist 10/23/2022 Chronic recurrent pancreatitis 10/23/2022 Chronic systolic CHF (conges tive heart failure), NYHA class 2 10/23/2022 Diverticulosis of colon 10/23/2022 Dyspepsia 10/23/2022 Elevated PSA 10/23/2022 History of coronary artery bypass graft 10/24/19 Hyperlipidemia 10/23/2022 Impotence of organic origin 10/23/2022 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 10/23/2022 Nocturia 10/23/2022 Nuclear sclerosis of both eyes 10/23/2022 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 Overweight (BMI 25.0-29.9) 10/23/2022 Pancreatic insufficiency 10/23/2022 Sensorineural hearing loss, bilateral 10/23/2022 Squamous cell carcinoma of left hand 10/23/2022 Mitral valve insufficiency 10/23/2022 Tricuspid valve insufficiency 10/23/2022 Stage 3a chronic kidney disease 10/23/2022 Dyspnea 08/21/2022 Resolved Problems Problem Noted Date Diagnosed Date Resolved Date Idiopathic chronic pancreatitis 10/23/2022 01/08/2023 Cardiovascular stress test abnormal 08/21/2022 01/08/2023 Chest pain 08/21/2022 01/08/2023 Fatigue 08/21/2022 01/08/2023 History of hypertension 08/21/2022 09/2 04/2022 Hypertensive disorder 08/21/20222022 Coronary arteriosclerosis 08/21/2022 Encounters Date Type Department Care Team Description 09/27/2024 Patient Outreach [place] [id number] [place] [address] Shelley iGlmore, ALYCIA 09/21/2024 Patient Outreach [place] [address] [place] [address] Shelley Gilmore RN 09/13/2024 Patient Outreach [place] [address] [place] [address] Shelley Gilmore RN 09/05/2024 Patient Outreach [place] [address] [place] [address] Shelley Gilmore RN 09/05/2024 Clinisync Result Encounter [facility] External Department Unsolicited Provider, Generic External Data 08/09/2024 Abstract [facility] [address] [facility] [address] [place] [address] Scott Tai MD 08/08/2024 Patient Outreach [place] [address] [place] [address] Ruma Fernandes LPN 07/06/2024 Abstract [facility] [address] [facility] [address] [place] [address] Scott Tai MD 07/05/2024 Patient Outreach [place] [address] [place] [address] Shelley Gilmore, ALYCIA from Last 3 Months Immunizations Immunization Administration Dates Next Due Tdap 10/13/2017 Zoster, Recombinant 05/21/2018 Zoster, live 10/28/2012 Family History Medical History Relation Name Comments No Known Problems Daughter Heart disease Father Hypertension Father Heart disease Sibling Hypertension Sibling No Known Problems Son Melanoma Neg Hx Relation Name Status Comments Daughter 1 daughter Father Mother Alive Sibling Son 2 sons Social History Tobacco Use Types Packs/Day Years [...] often do you attend chur ch or gnosticist services? 1 to 4 times per year 11/10/2023 Do you belong to any clubs o r organizations such as confucianist groups, unions, fraternal or athletic groups, or [...] Recorded Patient Health Questionnaire-2 Score 0 05/04/2024 [facility] of Occupat ional [facility] - Occupational Stress Questionnaire Answer [...] place to sleep or slept in a half-way (including now)? No 12/02/2022 Sex and Gender Information Value Date Recorded Sex Assigned at Not on file Legal Sex Male 6:45 PM EDT Gender Identity Not on file Sexual Orientation Not on file Last Filed Vital Signs Vital Sign Reading Time Taken Comments Blood Pressure 128/80 05/04/2024 8:25 AM EST Pulse 88 05/04/2024 8:25 AM EST Temperature 36.2 C (97.2 F) 06/05/2023 1:04 PM EST Respiratory Rate 17 05/04/2024 8:25 AM EST Oxygen Saturation 97% 05/04/2024 8:25 AM EST Inhaled Oxygen Concentration - - Weight 69.6 kg (153 lb 6.4 oz) 05/04/2024 8:25 A M EST Height 162.6 cm (5' 4 ) 05/04/2024 8:25 AM EST Body Mass Index 26.33 05/04/2024 8:25 AM EST Plan of Treatment Upcoming Encounters Date Type Department Care Team (Late st Contact Info) Description 05/04/2025 8:30 AM EST Office Visit [facility] 112 [facility] 110 [place] [address] Scott Tai MD 112 [facility] 110 [place] [address] Health Maintenance Due Date Last Done Comments Medicare Annual Wellness (AWV) 05/04/2025 0 05/04/2024, 01/13/2024, 01/08/2023, Additional history exists Influenza Vaccine Discontinued Pneumococcal Vaccine: 65+ Years Discontinued Procedures Procedure Name Priority Date/Time Associated Diagnosis Comments [facility] LIVER PANEL Routine 09/05/2024 9:20 AM EDT ALL CBC WITH AUTO DIFF Routine 09/05/2024 9:20 AM EDT H. PYLORI STOOL AG, EIA Routine 09/05/2024 6:15 AM EDT from Last 3 Months Results * (ABNORMAL) [facility] LIVER PANEL (09/05/2024 9:20 AM EDT) BILIRUBIN TOTAL 1.2(H) 0.2 - 1.0 mg/dL [facility] BILIRUBIN DIRECT 0.2 0.0 - 0.2 mg/dL [facility] ASPARTATE AMINO TRANSFERASE 15 15 - 37 U/L [facility] ALANINE AMINOTRANSFERASE 18 16 - 63 U/L [facility] ALKALINE PHOSPHATASE 73 46 - 116 U/L [facility] TOTAL PROTEIN 6.3(L) 6.4 - 8.2 g/dL [facility] ALBUMIN LEVEL 3.2(L) 3.4 - 5.0 g/dL [facility] GLOBULIN 3.1 g/dL TB ALBUMIN GLOBULIN RATIO 1.0 [facility] 09/05/2024 9:20 AM EDT 09/05/2024 9:23 AM EDT Narrative [facility] - 09/05/2024 10:24 AM EDT us Generic External Data Provider [facility] F [facility] * (ABNORMAL) ALL CBC WITH AUTO DIFF (09/05/2024 9:20 AM EDT) TB WBC 9.3 4.0 - 11.0 10 3/uL TBH TBH RBC 3.13(L) 4.70 - 6.10 10 6/uL TBH TBH HGB 8.8(L) 14.0 - 18.0 g/dL TBH TBH HCT 27.2(L) 42.0 - 54.0 % TBH TBH MCV 86.9 80.0 - 94.0 fL TBH TBH MCH 28.1 25.9 - 34.0 pg TBH TBH MCHC 32.4 29.9 - 35.2 g/dL TBH TBH RDW 14.6 11.0 - 15.0 % TBH TBH PLT 276 150 - 450 10 3/uL TBH TBH MPV 10.0 9.5 - 13.5 fL TBH NEUTROPHILS PERCENT AUTO 68.9 43.0 - 75.0 % TBH LYMPHOCYTES PERCENT AUTO 17.3(L) 20.5 - 60.0 % TBH MONOCYTES PERCENT AUTO 10.4 1.7 - 12.0 % TBH TBH EO % 2.6 0.9 - 7.0 % TBH BASOPHILS PERCENT AUTO 0.4 0.2 - 2.0 % TBH IMMATURE GRANULOCYTES PCT AUTO 0.4 0.0 - 0.5 % TBH NEUTROPHILS ABSOLUTE AUTO 6.4 1.4 - 6.5 10 3/uL TBH LYMPHOCYTES ABSOLUTE AUTO 1.6 1.2 - 3.8 10 3/uL TBH MONOCYTES ABSOLUTE AUTO 1.0(H) 0.3 - 0.8 10 3/uL TBH TBH EO # 0.2 0.0 - 0.7 10 3/uL TBH BASOPHILS ABSOLUTE AUTO 0.0 0.0 - 0.1 10 3/uL TBH IMMATURE GRANULOCYTES ABS AUTO 0.04(H) 0.00 - 0.03 10 3/uL TBH 09/05/2024 9:20 AM EDT 09/05/2024 9:23 AM EDT Narrative [facility] - 09/05/2024 9:32 AM EDT Generic External Data Provider [facility] F inal Result Performing Organization Address City/[facility] Co de Phone Number [facility] * H. PYLORI STOOL AG, EIA (09/05/2024 6:15 AM EDT) Pathologist [facility] H. PYLORI STOOL AG, EIA Negative Negative TB Comment: Performed at: [facility] [address] [id number] Aggregate Conveyor Operator: Shin Botello PhD, Phone: [phone] 09/05/2024 6:15 AM EDT 09/05/2024 9:17 AM EDT Narrative [facility] - 09/06/2024 11:09 AM EDT STOOL Generic External Data Provider [facility] F inal Result Performing Organization Address [facility] Co de Phone Number [facility] from Last 3 Months Insurance [facility] MEDICARE ADVANTAGE Care Teams Mohs Surgeon Relationship Specialty Start Date End Date Scott Tai MD [address] [facility] [address] [place] [address] PCP - Lashon PASCUAL 04/20/21 Scott Tai MD [address] [facility] [address] [place] [address] PCP - General Internal Medicine 10/22/22 Ruma Fernandes LPN [address] [place] [address] [place] [address] 07/08/24
--- OUTSIDE RECORDS SUMMARY | 2024-10-05 08:49 | XMS_ITS | Encounter Summary ---
Author Organization [facility] Healthcare Address [address] [place] [address] Care Team Providers Care Insurance Underwriter Sales Name Role Phone Scott Tai MD Unavailable [phone] Scott Tai MD Primary Care Provider [phone] Ruma Fernandes LPN Unavailable Encounter Details Date Type Department Care Team (Late st Contact Info) Description 09/27/2024 Patient Outreach [facility] [address] [facility] [place] [address] Shelley Gilmore, RN [address] [place] [address] Social History Tobacco Use Types Packs/Day Years [...] How often do you attend chur or lutheran services? 1 to 4 times per year 11/10/2023 Do you belong to any clubs o r organizations such as sabianist groups, unions, fraternal or athletic groups, or [...] Recorded Patient Health Questionnaire-2 Score 0 05/04/2024 [facility]at ional Health - Occupational [...] place to sleep or slept in a snf (including now)? No 12/02/2022 Sex and Gender Information Value Date Recorded Sex Assigned at Not on file Legal Sex Male 6:45 PM EDT Gender Identity Not on file Sexual Orientation Not on file documented as of this encounter Progress Notes * Shelley Gilmore RN - 09/27/2024 12:32 PM EDT Flowsheet Row Patient Outreach from 09/27/2024 in [facility] with Shelley Gilmore RN Week Number Call Week 3 Call Was patient contacted successfully? Yes Have you had any urgent care/ED/Hospital visits since discharge? No Any medication changes since last contact? No Is the patient taking all medications as directed? Yes Have you visited your PCP since discharge? No Does patient have home health? no documented in this encounter Plan of Treatment Upcoming Encounters Date Type Department Care Team (Late st Contact Info) Description 05/04/2025 8:30 AM EST [facility] [address] [facility] [address] [place] [address] Scott Tai MD [address] [place] [address] documented as of this encounter Visit Diagnoses Diagnosis Benign essential hypertension- Primary Essential hypertension, benign Mixed hyperlipidemia Mixed hyperlipidemia documented in this encounter Care Teams Insurance Underwriter Sales Relationship Specialty Start Date End Date Scott Tai MD 112 [facility] [address] [place] [address] PCP - Lashon PASCUAL 04/20/21 Scott Tai MD 112 [facility] [address] [place] [address] PCP - General Internal Medicine 10/22/22 Ruma Fernandes LPN [address] [address] [place] [address] 07/08/24 documented as of this encounter
--- OUTSIDE RECORDS SUMMARY | 2024-10-05 08:49 | XMS_ITS | Encounter Summary ---
Author Organization [facility] Healthcare Address [address] [place] [address] Care Team Providers Care Special Agent Group Insurance Name Role Phone Scott Tai MD Unavailable [phone] Scott Tai MD Primary Care Provider [phone] Ruma Fernandes LPN Unavailable Encounter Details Date Type Department Care Team (Late st Contact Info) Description 09/21/2024 Patient Outreach [facility] [address] [facility] [place] [address] Shelley Gilmore, RN [address] [place] [address] Social History Tobacco Use Types Packs/Day Years [...] How often do you attend chur or hindu services? 1 to 4 times per year 11/10/2023 Do you belong to any clubs o r organizations such as taoism groups, unions, fraternal or athletic groups, or [...] Recorded Patient Health Questionnaire-2 Score 0 05/04/2024 [facility] Occupat ional Health - Occupational Stress [...] money to buy more. Never true 12/03/19 Within the past 12 months, t he [...] place to sleep or slept in a nursing home (including now)? No 12/02/2022 Sex and Gender Information Value Date Recorded Sex Assigned at Not on file Legal Sex Male 6:45 PM EDT Gender Identity Not on file Sexual Orientation Not on file documented as of this encounter Progress Notes * Shelley Gilmore RN - 09/21/2024 10:05 AM EDT Images from the original note were not included. Flowsheet Row Patient Outreach from 09/21/2024 in [facility] with Shelley Gilmore RN Week Number Call Week 2 Call Was patient contacted successfully? Yes Have you had any urgent care/ED/Hospital visits since discharge? No Any medication changes since last contact? No Is the patient taking all medications as directed? Yes Have you visited your PCP since discharge? No [missed appt as he was out of town and coudn't get through to office to cancel appt] Does patient have home health? no pt reports he is feeling good. denies needs/concerns at this time. documented in this encounter Plan of Treatment Upcoming Encounters Date Type Department Care Team (Late st Contact Info) Description 05/04/2025 8:30 AM EST Office Visit [facility] [address] [facility] [address] [place] [address] Scott Tai MD [address] [facility] [address] [place] [address] documented as of this encounter Visit Diagnoses Diagnosis Benign essential hypertension- Primary Essential hypertension, benign Mixed hyperlipidemia Mixed hyperlipidemia documented in this encounter Care Teams Special Agent Group Insurance Relationship Specialty Start Date End Date Scott Tai MD [address] [facility] [address] [place] [address] PCP - Lashon PASCUAL 04/20/21 Scott Tai MD [address] [facility] [address] [place] [address] PCP - General Internal Medicine 10/22/22 Ruma Fernandes LPN [address] [facility] [address] [place] [address] 07/08/24 documented as of this encounter
--- OUTSIDE RECORDS SUMMARY | 2024-10-05 08:49 | XMS_ITS | Encounter Summary ---
Author Organization [facility] Address [address] [facility] [address] Care Team Providers Care Rotary Drum Dyer Name Role Phone Scott Tai MD Unavailable [phone] Scott Tai MD Primary Care Provider [phone] Shelley Gilmore RN Unavailable [phone] Ruma Fernandes LPN Unavailable Encounter Details Date Type Department Care Team (Late st Contact Info) Description 05/25/2023 Orders Only [facility] [address] [facility] [address] [place] [address] A, Unknown Practice [address] [id number] Social History Tobacco Use Types Packs/Day Years [...] and Family Not on file 12/02/2022 Attends Yarsanism Services Not on file 12/02 Active Member [...] Recorded Patient Health Questionnaire-2 Score 0 01/08/2023 [facility] - Occupational Stress Questionnaire Answer Date [...] place to sleep or slept in a care home (including now)? No 12/02/2022 Sex and Gender Information Value Date Recorded Sex Assigned at Not on file Legal Sex Male 6:45 PM EDT Gender Identity Not on file Sexual Orientation Not on file documented as of this encounter Plan of Treatment Upcoming Encounters Date Type Department Care Team (Late st Contact Info) Description 05/04/2025 8:30 AM EST Office Visit [facility] [address] [facility] [address] [place] [address] cSott Tai MD 112 [facility] 110 [place] [address] documented as of this encounter Procedures Procedure Name Priority Date/Time Associated Diagnosis Comments ELECTROCARDIOGRAM REPORT Routine 1:34 PM EST XR CHEST 1 VIEW Routine 05/22/2023 3:03 PM EST ELECTROCARDIOGRAM REPORT Routine 024 9:04 AM EST documented in this encounter Results * Electrocardiogram Report (05/23/2023 1:34 PM EST) us Unknown Practice A IN CLINIC/BEDSIDE ORDERABLES Final Result * XR chest 1 view (05/22/2023 3:03 PM EST) Anatomical Region Laterality Modality Chest Radiographic Angie ging us Noms Provider Unallocated MD IMG XR PROCEDURES F inal Result * Electrocardiogram Report (05/22/2023 9:04 AM EST) us Unknown Practice A IN CLINIC/BEDSIDE ORDERABLES Final Result documented in this encounter Visit Diagnoses Not on filedocumented in this encounter Care Teams Rotary Drum Dyer Relationship Specialty Start Date End Date Scott Tia MD [address] [facility] [address] [place] [address] PCP - Lashon PASCUAL 04/20/21 Scott Tai MD [address] [facility] [address] [place] [address] PCP - General Internal Medicine 10/22/22 Shelley Gilmore, RN [address] [place] [address] Clinical Advocate Family Medicine 05/27/24 07/08/24 Ruma Fernandes LPN [address] [facility] [address] [place] [address] 07/08/24 documented as of this encounter
--- OUTSIDE RECORDS SUMMARY | 2024-10-05 08:49 | XMS_ITS | Encounter Summary ---
Author Organization [facility] Address [address] [facility] [place] [address] Care Team Providers Care Yard Supervisor Cotton Gin Name Role Phone Scott Tai MD Unavailable [phone] Scott Tai MD Primary Care Provider [phone] Shelley Gilmore RN Unavailable [phone] Ruma Fernandes LPN Unavailable Encounter Details Date Type Department Care Team (Late st Contact Info) Description 01/14/2023 Abstract [facility] [address] [facility] [address] [place] [id number] Scott Tai MD [address] [facility] 110 [place] [address] Social History Tobacco Use Types [...] and Family Not on file 12/02/2022 Attends Baptism Services Not on file 12/02 Active Member [...] Recorded Patient Health Questionnaire-2 Score 0 01/08/2023 [facility] [place] of Occupat ional Health - Occupational Stress [...] place to sleep or slept in a mcfp (including now)? No 12/02/2022 Sex and Gender [...] Office Visit [facility] [address] [facility] [address] [place] [address] Scott Tai MD [address] [facility] [address] [place] [address] documented as of this encounter Visit Diagnoses Not on filedocumented in this encounter Care Teams Yard Supervisor Cotton Gin Relationship Specialty Start Date End Date Scott Tai MD [address] [facility] [address] [place] [address] PCP - Lashon PASCUAL 04/20/21 Scott Tai MD [address] [facility] [address] [place] [address] PCP - General Internal Medicine 10/22/22 Shelley Gilmore, ALYCIA [address] [place] [address] Clinical Advocate Family Medicine 05/27/24 07/08/24 Ruma Fernandes LPN [address] [facility] [address] [place] [address] 07/08/24 documented as of this encounter
--- OUTSIDE RECORDS SUMMARY | 2024-10-05 08:49 | XMS_ITS | Encounter Summary ---
Author Organization [facility] Address [address] [place] [address] Care Team Providers Care Electrifier Operator Name Role Phone Scott Tai MD Primary Care Provider [phone] Reason for Visit * Reason Comments Med Change Request Encounter Details Date Type Department Care Team (Late st Contact Info) Description 04/17/2023 Refill [facility] [address] [place] [address] Юлия Orona, KETTLE HAND [address] [place] [address] Benign hypertensive heart disease with heart failure (CMS/HCC) Social History Tobacco Use Types Packs/Day Years Used Date Smoking Tobacco: Former Cigarettes Smokeless Tobacco: Never Alcohol Use Standard Drinks/Week Comments Not Currently 0 (1 standard drink = 0.6 oz pur e alcohol) Sex and Gender Information Value Date Recorded Sex Assigned at Not on file Legal Sex Male 10:32 PM EDT Gender Identity Not on file Sexual Orientation Not on file documented as of this encounter Plan of Treatment Not on file documented as of this encounter Visit Diagnoses Diagnosis Benign hypertensive heart disease with heart failure (CMS/HCC) documented in this encounter Care Teams Electrifier Operator Relationship Specialty Start Date End Date Scott Tai MD PCP - General Internal Medicine 12/09/22 documented as of this encounter
--- OUTSIDE RECORDS SUMMARY | 2024-10-05 08:49 | XMS_ITS | Encounter Summary ---
Author Organization [facility] Address [address] [facility] [address] Care Team Providers Care Rail Car Unloader Name Role Phone Scott Tai MD Unavailable [phone] Scott Tai MD Primary Care Provider [phone] Shelley Gilmore RN Unavailable [phone] Ruma Fernandes LPN Unavailable Encounter Details Date Type Department Care Team (Late st Contact Info) Description 05/25/2023 Abstract [facility] [address] [facility] [address] [place] [id number] Scott Tai MD [address] [facility] [address] [place] [address] Social History Tobacco Use Types [...] and Family Not on file 12/02/2022 Attends Pentecostal Services Not on file 12/02 Active Member [...] Recorded Patient Health Questionnaire-2 Score 0 01/08/2023 [facility] of Occupat ional Health - Occupational Stress [...] place to sleep or slept in a intermediate (including now)? No 12/02/2022 Sex and Gender [...] Office Visit [facility] [address] [facility] [address] [place] [address] Scott Tai MD [address] [facility] [address] [place] [address] documented as of this encounter Visit Diagnoses Not on filedocumented in this encounter Care Teams Rail Car Unloader Relationship Specialty Start Date End Date Scott Tai MD [address] [facility] [address] [place] [address] PCP - Lashon PASCUAL 04/20/21 Scott Tai MD [address] [facility] [address] [place] [address] PCP - General Internal Medicine 10/22/22 Shelley Gilmore, ALYCIA [address] [place] [address] Clinical Advocate Family Medicine 05/27/24 07/08/24 Ruma Fernandes LPN [address] [facility] [address] [place] [address] 07/08/24 documented as of this encounter
--- OUTSIDE RECORDS SUMMARY | 2024-10-05 08:49 | XMS_ITS | Encounter Summary ---
Author Organization [facility] Address [address] [facility] [place] [address] Care Team Providers Care Sales And Leasing Consultant Name Role Phone Scott Tai MD Unavailable [phone] Scott Tai MD Primary Care Provider [phone] Shelley Gilmore RN Unavailable [phone] Ruma Fernandes LPN Unavailable Encounter Details Date Type Department Care Team (Late Contact Info) Description 10/27/2022 Abstract [facility] [address] [facility] [address] [place] [phone] Scott Tai MD [address] [facility] [address] [place] [address] Social History Tobacco Use Types Packs/Day Years Used Date Smoking Tobacco: Never Smokeless Tobacco: Never Sex and Gender Information Value Date Recorded Sex Assigned at Not on file Legal Sex Male 6:45 PM EDT Gender Identity Not on file Sexual Orientation Not on file documented as of this encounter Plan of Treatment Upcoming Encounters Date Type Department Care Team (Late Contact Info) Description 05/04/2025 8:30 AM EST Office Visit [facility] [address] [facility] [address] [place] [address] Scott Tai MD [address] [facility] [address] [place] [address] documented as of this encounter Visit Diagnoses Not on filedocumented in this encounter Care Teams Sales And Leasing Consultant Relationship Specialty Start Date End Date Scott Tai MD [address] [facility] [address] [place] [address] PCP - Lashon PASCUAL 04/20/21 Scott Tai MD [address] [facility] [address] [place], [place] [address] PCP - General Internal Medicine 10/22/22 Shelley Gilmore, RN [address] [place] [address] Clinical Advocate Family Medicine 05/27/24 07/08/24 Ruma Fernandes LPN [address] [facility] [address] [place] [address] 07/08/24 documented as of this encounter
--- OUTSIDE RECORDS SUMMARY | 2024-10-05 08:49 | XMS_ITS | Encounter Summary ---
Author Organization [facility] Address [address] [place] [address] Care Team Providers Care Digitizer Name Role Phone Scott Tai MD Unavailable Scott Tai MD Primary Care Provider [phone] Shelley Gilmore RN Unavailable [phone] Ruma Fernandes LPN Unavailable Encounter Details Date Type Department Care Team (Late st Contact Info) Description 01/01/2023 Clinisync Result Encounter [facility] External Department Unsolicited [...] and Family Not on file 12/02/2022 Attends Mandaen Services Not on file 12/02 Active Member [...] and heating? Not hard at all 12/02/2022 [facility] - Occupational Stress Questionnaire Answer Date [...] EST Office Visit [facility] 112 [facility] [address] [place] [address] Scott Tai MD 112 [facility] 110 [place] [address] documented as of this encounter Procedures Procedure Name Priority Date/Time Associated Diagnosis Comments CA ECHO DOPPLER COMPLETE 01/01/2023 1:08 PM EDT documented in this encounter Results * CA ECHO DOPPLER COMPLETE (01/01/2023 1:08 PM EDT) Anatomical Region Laterality Modality Other 01/01/2023 1:08 PM EDT Narrative 01/01/2023 1:08 PM EDT The [address] [address] Cardiology Report Signed Patient: RADHA CABELLO MR#: [id number] : 1940 Acct:[id number] Age/Sex: 82 / M ADM Date: 01/01/23 Loc: CARD Attending Dr: CELIA DURHAM Ordering Physician: CELIA DURHAM Date of Service: 01/01/23 Procedure(s): CA echo doppler complete Accession Number(s): [id number] cc: Patient: RADHA CABELLO. Exam Date: 01/01/2023 : 1940 Gender:M Ordering : CELIA DURHAM Admission #: [id number] Family : DR SCOTT TAI M.D. Order #: [id number] CLICK HERE TO VIEW EXAM ECHOCARDIOGRAM REPORT PROCEDURE: CA ECHO DOPPLER COMPLETE INDICATIONS: Ischemic cardiomyopathy, chronic systolic heart failure, CABGx3, h/o NC's, hypertension COMPARISON: None. DESCRIPTION: COMPLETE ECHOCARDIOGRAM Real-time transthoracic echocardiography with 2D, M-mode, spectral and color flow Doppler performed. QUALITY: Technical quality was good. LEFT VENTRICLE: Normal chamber size. Proximal septal hypertrophy (sigmoid septum). LV EF: Global left ventricular systolic function is moderately reduced; visually estimated ejection fraction is 30-35%. The distal third of the inferior wall is akinetic. The distal two thirds of the anteroseptum appears severely hypokinetic. DIASTOLIC: Grade II diastolic dysfunction. ATRIAL SEPTUM: Visually appears intact. LEFT ATRIUM: Mild dilatation. RIGHT ATRIUM: Normal chamber size. RIGHT VENTRICLE: Normal chamber size. Decreased right ventricular systolic function. TRICUSPID VALVE: Normal mobility and thickness. No stenosis with trivial regurgitation. No evidence of pulmonary hypertension. RVSP 34 mmHg MITRAL VALVE: Mildly thickened with normal mobility. No evidence of mitral valve stenosis. There is no mitral annular calcification. Trivial mitral regurgitation. AORTIC VALVE: Normal trileaflet appearance. Mildly calcified aortic valve. Mildly diminished mobility. No evidence of aortic valve stenosis. Trivial aortic regurgitation. AORTIC ROOT: Normal diameter and appearance. PULMONIC VALVE: Normal thickness and mobility. No stenosis. Trivial regurgitation. PERICARDIUM: Trivial pericardial effusion is seen. IVC: Collapses with inspirations. IVC is normal in size. CONCLUSION: 1. Global left ventricular systolic function is moderately reduced; visually estimated ejection fraction is 30 to 35%. Segmental wall motion abnormalities are seen. 2. Grade 2 diastolic dysfunction. 3. The left atrium is mildly dilated. 4. The right ventricle is normal in size with decreased systolic function. 5. No significant valvular abnormalities. 6. Trivial pericardial effusion is seen. Adult Echocardiography Procedure Report Left Ventricle LVEDD (3.7 - 5.6 cm): 4.57 cm LVESD (2.2 - 4.0 cm): 2.94 cm LVIVS thickness (0.6 - 1.2 cm): 1.23 cm LVPW thickness (0.5 - 1.0 cm): 0.85 cm e': 0.04 m/s E - e': 12.16 LVOT Max Gradient: 2.19 mm[Hg] LVOT Area (cm2): 0.74 m/s Peak Velocity (LVOT): 0.74 m/s Mean Velocity (LVOT): 0.54 m/s LVOT Diameter 2.54 cm Left Atrium LA Volume Index (2D A2C): 38.68 ml/m2 Left Atrium Systolic Dimension: 4.48 cm Mitral Valve MV E to A Ratio: 0.58 Mitral Valve A-Wave Peak Velocity: 0.93 m/s Mitral Valve E-Wave Peak Velocity: 0.54 m/s Right Ventricle Aorta AO Root Diam: 3.38 cm Ascending Ao Diam: 2.81 cm Aortic Valve AoV Area (Peak Adarsh): 3.70 cm2, 3.83 cm2 AoV Area (VTI): 3.54 cm2, 3.72 cm2 Peak Velocity(Antegrade Flow): 0.98 m/s, 1.05 m/s Peak Gradient(Antegrade Flow): 3.85 mm[Hg], 4.42 mm[Hg] Mean Velocity(Antegrade Flow): 0.69 m/s, 0.75 m/s Mean Gradient(Antegrade Flow): 2.16 mm[Hg], 2.57 mm[Hg] Velocity Time Integral: 22.13 cm, 24.28 cm Tricuspid Valve Peak Velocity (Regurgitant Flow): 2.78 m/s Pulmonic Valve Peak Velocity: 1.18 m/s Peak Gradient: 5.61 mm[Hg], 5.61 mm[Hg] Right Atrium Right Atrium Systolic Pressure: 46.08 ml, 46.08 ml Dictated by: Rohit Adkins M.D. on 01/01/2023 at 13:02 Approved by: Rohit Adkins M.D. on 01/01/2023 at 13:08 Dictated By: Rohit Adkins M.D. Signed By: 01/01/23 1309 DD/ 1308 TD/TT: Data Center Consultant: Procedure Note Radiology, Radiologist, - 01/08/2023 [place] [address] Cardiology Report Signed Patient: RADHA CABELLO EMR#: [id number] : 1940cct:[id number] Age/Sex: 82 / MADM Date: 01/01/23 Loc: CARD Attending Dr: CELIA DURHAM Ordering Physician: CELIA DURHAM Date of Service: 01/01/23 Procedure(s): CA echo doppler complete Accession Number(s): [id number] cc: Patient: RADHA CABELLO Exam Date: 01/01/2023 : 1940 Gender:M Ordering : CELIA DURHAM Admission #: [id number] Family : DR SCOTT TAI M.D. Order #: [id number] CLICK HERE TO VIEW EXAM ECHOCARDIOGRAM REPORT PROCEDURE: CA ECHO DOPPLER COMPLETE INDICATIONS: Ischemic cardiomyopathy, chronic systolic heart failure, CABGx3, h/o NC's, hypertension COMPARISON: None. DESCRIPTION: COMPLETE ECHOCARDIOGRAM Real-time transthoracic echocardiography with 2D, M-mode, spectral and color flow Dopplerperformed. QUALITY: Technical quality was good. LEFT VENTRICLE: Normal chamber size. Proximal septal hypertrophy(sigmoid septum). LV EF: Global left ventricular systolic function is moderatelyreduced; visually estimated ejection fraction is 30-35%. The distal third of the inferior wall is akinetic. The distal two thirds of the anteroseptumappears severely hypokinetic. DIASTOLIC: Grade II diastolic dysfunction. ATRIAL SEPTUM: Visually appears intact. LEFT ATRIUM: Mild dilatation. RIGHT ATRIUM: Normal chamber size. RIGHT VENTRICLE: Normal chamber size. Decreased right ventricularsystolic function. TRICUSPID VALVE: Normal mobility and thickness. No stenosis withtrivial regurgitation. No evidence of pulmonary hypertension. RVSP 34 mmHg MITRAL VALVE: Mildly thickened with normal mobility. No evidence of mitral valve stenosis. There is no mitral annular calcification. Trivial mitral regurgitation. AORTIC VALVE: Normal trileaflet appearance. Mildly calcified aorticvalve. Mildly diminished mobility. No evidence of aortic valve stenosis.Trivial aortic regurgitation. AORTIC ROOT: Normal diameter and appearance. PULMONIC VALVE: Normal thickness and mobility. No stenosis. Trivial regurgitation. PERICARDIUM: Trivial pericardial effusion is seen. IVC: Collapses with inspirations. IVC is normal in size. CONCLUSION: 1. Global left ventricular systolic function is moderately reduced;visually estimated ejection fraction is 30 to 35%. Segmental wall motionabnormalities are seen. 2. Grade 2 diastolic dysfunction. 3. The left atrium is mildly dilated. 4. The right ventricle is normal in size with decreased systolic function. 5. No significant valvular abnormalities. 6. Trivial pericardial effusion is seen. Adult Echocardiography Procedure Report Left Ventricle LVEDD (3.7 - 5.6 cm): 4.57 cm LVESD (2.2 - 4.0 cm): 2.94 cm LVIVS thickness (0.6 - 1.2 cm): 1.23 cm LVPW thickness (0.5 - 1.0 cm): 0.85 cm e': 0.04 m/s E - e': 12.16 LVOT Max Gradient: 2.19 mm[Hg] LVOT Area (cm2): 0.74 m/s Peak Velocity (LVOT): 0.74 m/s Mean Velocity (LVOT): 0.54 m/s LVOT Diameter 2.54 cm Left Atrium LA Volume Index (2D A2C): 38.68 ml/m2 Left Atrium Systolic Dimension: 4.48 cm Mitral Valve MV E to A Ratio: 0.58 Mitral Valve A-Wave Peak Velocity: 0.93 m/s Mitral Valve E-Wave Peak Velocity: 0.54 m/s Right Ventricle Aorta AO Root Diam: 3.38 cm Ascending Ao Diam: 2.81 cm Aortic Valve AoV Area (Peak Adarsh): 3.70 cm2, 3.83 cm2 AoV Area (VTI): 3.54 cm2, 3.72 cm2 Peak Velocity(Antegrade Flow): 0.98 m/s, 1.05 m/s Peak Gradient(Antegrade Flow): 3.85 mm[Hg], 4.42 mm[Hg] Mean Velocity(Antegrade Flow): 0.69 m/s, 0.75 m/s Mean Gradient(Antegrade Flow): 2.16 mm[Hg], 2.57 mm[Hg] Velocity Time Integral: 22.13 cm, 24.28 cm Tricuspid Valve Peak Velocity (Regurgitant Flow): 2.78 m/s Pulmonic Valve Peak Velocity: 1.18 m/s Peak Gradient: 5.61 mm[Hg], 5.61 mm[Hg] Right Atrium Right Atrium Systolic Pressure: 46.08 ml, 46.08 ml Dictated by: Rohit Adkins M.D. on 01/01/2023 at 13:02 Approved by: Rohit Adkins M.D. on 01/01/2023 at 13:08 Dictated By: Rohit Adkins M.D. Signed By:01/01/23 1309 DD/ 1308 TD/TT: Data Center Consultant: us Generic External Data Provider [facility] Final Result documented in this encounter Visit Diagnoses Not on filedocumented in this encounter Care Teams Digitizer Relationship Specialty Start Date End Date Scott Tai MD [address] [facility] [address] [place] [address] PCP - Lashon PASCUAL 04/20/21 Scott Tai MD [address] [facility] 110 [place] [address] PCP - General Internal Medicine 10/22/22 Shelley Gilmore, ALYCIA [address] [place] [address] Clinical Advocate Family Medicine 05/27/24 07/08/24 Ruma Fernandes LPN [address] [facility] [address] [place] [address] 07/08/24 documented as of this encounter
--- OUTSIDE RECORDS SUMMARY | 2024-10-05 08:49 | XMS_ITS | Encounter Summary ---
Author Organization [facility] Address [address] [facility] [place] [address] Care Team Providers Care Dental Hygienist Mobile Coordinator Name Role Phone Scott Tai MD Unavailable [phone] Scott Tai MD Primary Care Provider [phone] Shelley Gilmore RN Unavailable [phone] Ruma Fernandes LPN Unavailable Encounter Details Date Type Department Care Team (Late Contact Info) Description 10/27/2022 Abstract [facility] [address] [facility] 110 [place] [id number] Scott Tai MD [address] [facility] 110 [place] [address] Social History Tobacco Use Types Packs/Day Years [...] Visit [facility] [address] [facility] [address] [place] [address] Scott Tai MD [address] [facility] [address] [place] [address] documented as of this encounter Visit Diagnoses Not on filedocumented in this encounter Care Teams Dental Hygienist Mobile Coordinator Relationship Specialty Start Date End Date Scott Tai MD [address] [facility] 110 [place] [address] PCP - Lashon PASCUAL 04/20/21 Scott Tai MD [address] [facility] [address] [place], [place] [address] PCP - General Internal Medicine 10/22/22 Shelley Gilmore, RN [address] [place] [address] Clinical Advocate Family Medicine 05/27/24 07/08/24 Ruma Fernandes LPN [address] [facility] [address] [place] [address] 07/08/24 documented as of this encounter
--- OUTSIDE RECORDS SUMMARY | 2024-10-05 08:49 | XMS_ITS | Encounter Summary ---
Author Organization [facility] Address [address] [facility] [place] [address] Care Team Providers Care Safety Associate Name Role Phone Scott Tai MD Unavailable [phone] Scott Tai MD Primary Care Provider [phone] Shelley Gilmore RN Unavailable [phone] Ruma Fernandes LPN Unavailable Encounter Details Date Type Department Care Team (Late st Contact Info) Description 05/25/2023 Abstract [facility] [address] [facility] 110 [place] [phone] Scott Tai MD [address] [facility] 110 [place] [address] Social History Tobacco Use Types [...] and Family Not on file 12/02/2022 Attends Taoist Services Not on file 12/02 Active Member [...] Recorded Patient Health Questionnaire-2 Score 0 01/08/2023 [facility] [place] of Occupat ional Health - Occupational Stress [...] Office Visit [facility] CI [address] [facility] [address] [place] [address] Scott Tai MD [address] [facility] [address] [place] [address] documented as of this encounter Visit Diagnoses Not on filedocumented in this encounter Care Teams Safety Associate Relationship Specialty Start Date End Date Scott Tai MD [address] [facility] [address] [place] [address] PCP - Lashon PASCUAL 04/20/21 Scott Tai MD [address] [facility] [address] [place] [address] PCP - General Internal Medicine 10/22/22 Shelley Gilmore, ALYCIA [address] [place] [address] Clinical Advocate Family Medicine 05/27/24 07/08/24 Ruma Fernandes LPN [address] [facility] [address] [place] [address] 07/08/24 documented as of this encounter
--- OUTSIDE RECORDS SUMMARY | 2024-10-05 08:49 | XMS_ITS | Encounter Summary ---
Author Organization [facility] Address [address] [facility] [place] [address] Care Team Providers Care Sheetmetal Patternmaker Name Role Phone Scott Tai MD Unavailable [phone] Scott Tai MD Primary Care Provider [phone] Shelley Gilmore RN Unavailable [phone] Ruma Fernandes LPN Unavailable Encounter Details Date Type Department Care Team (Late st Contact Info) Description 12/09/2022 Abstract [facility] [address] [facility] 110 [place] [phone] Scott Tai MD [address] [facility] 110 [place] [address] Social History Tobacco Use Types [...] and Family Not on file 12/02/2022 Attends Restorationist Services Not on file 12/02 Active Member [...] and heating? Not hard at all 12/02/2022 [facility] [place] of Occupat ional Health - Occupational Stress [...] to sleep or slept in a senior living (including now)? No 12/02/2022 Sex and Gender [...] [address] [facility] 110 [place] [address] Scott Tai MD [address] [facility] [address] [place] [address] documented as of this encounter Visit Diagnoses Not on filedocumented in this encounter Care Teams Sheetmetal Patternmaker Relationship Specialty Start Date End Date Scott Tai MD [address] [facility] [address] [place] [address] PCP - Lashon PASCUAL 04/20/21 Scott Tai MD [address] [facility] [address] [place] [address] PCP - General Internal Medicine 10/22/22 Shelley Gilmore, ALYCIA [address] [place] [address] Clinical Advocate Family Medicine 05/27/24 07/08/24 Ruma Fernandes LPN [address] [facility] [address] [place] [address] 07/08/24 documented as of this encounter
--- OUTSIDE RECORDS SUMMARY | 2024-10-05 08:49 | XMS_ITS | Encounter Summary ---
Author Organization [facility] Address [address] [place] [address] Care Team Providers Care Supervisor Delivery Department Name Role Phone Scott Tai MD Primary Care Provider [phone] Reason for Visit * Reason Comments Med Refill Encounter Details Date Type Department Care Team (Late st Contact Info) Description 11/19/2022 Refill [facility] [address] [place] [address] Юлия Orona, DIRECTOR OF MANUFACTURING [address] [place] [phone] Benign hypertensive heart disease with heart failure [...] (CMS/HCC) documented in this encounter Care Teams Supervisor Delivery Department Relationship Specialty Start Date End Date Scott Tai MD PCP - General Internal Medicine 12/09/22 documented as of this encounter
[2024-10-05 09:49] LABS: Anion Gap 14.5; BUN Creatinine Ratio 25.2; Carbon Dioxide 25.7 mmol/L (21.0-32.0); Chloride 104 mmol/L (98-107); Estimated GFR (African America >60 (>=60 mL/min/1.73m^2); Estimated GFR (Non-African Ame 59 (>=60 mL/min/1.73m^2); Glucose 113 mg/dL (74-106); Potassium 4.2 mmol/L (3.5-5.1); Sodium 140 mmol/L (136-145)
== END 2024-10-05 08:44 | disposition home or self-care (01) ==
LOC: LAB 08:44
PROVIDERS: PCP Internal Medicine; Visit Provider Internal Medicine Interventional Cardiology
DX: I50.22 Chronic systolic (congestive) heart failure (principal)
CPT/HCPCS: 36415; 80048

== ENCOUNTER 2024-11-30 09:05 | Emergency (ER) | payer MEDICARE, SELFPAY ==
--- OUTSIDE RECORDS SUMMARY | 2024-11-30 04:10 | XMS_ITS | Continuity of Care Document ---
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 It does not include entries that were removed or entered in error. 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 Medication Details Route Status Patient Instructions Prescription Expires Prescription Number Last Dispense Date Ordering Provider Order Date Order Qty Source ASPIRIN 81MG TAB,EC TAKE ONE TABLET BY MOUTH EVERY DAY ORAL ACTIVE ANABELLE MERCADO 2018 [facility] ATORVASTATI N CA 80MG TAB TAKE ONE-HALF TABLET BY MOUTH AT BEDTIME ORAL ACTIVE DEGROH,DA VID L 2018 [facility] CARVEDILOL 6.25MG TAB TAKE ONE TABLET BY MOUTH TWICE A DAY ORAL ACTIVE DE JEWELS,QUINCY D L 2023 [facility] CLOPIDOGREL BISULFATE 75MG TAB TAKE ONE TABLET BY MOUTH EVERY DAY ORAL ACTIVE DEGROH,DA VID L 2018 [facility] ISOSORBIDE MONONITRATE 30MG TAB,SA TAKE ONE TABLET BY MOUTH EVERY DAY ORAL ACTIVE DEGROH,DA VID L 2018 [facility] LISINOPRIL 20MG TAB TAKE ONE TABLET BY MOUTH EVERY DAY ORAL ACTIVE DE JEWELS,QUINCY D L 2022 [facility] MAGNESIUM OXIDE 420MG TAB TAKE TWO TABLETS BY MOUTH QD ORAL ACTIVE QUINCY GREGORY 2022 [facility] MULTIVIT/OP HTH AREDS2/LUTE IN/ZEAXANTH IN CAP/TAB TAKE 1 CAPSULE BY MOUTH 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 Immunization Series Date Given Administered By Site Reaction Lot Number CVX Code Drug Transmission Systems Operator Status Comments Source COVID-19 (PFIZER), MRNA, LNP-S, PF, 30 MCG/0.3 ML DOSE 2 2020 208 complet ed [facility] COVID-19 (PFIZER), MRNA, LNP-S, PF, 30 MCG/0.3 ML DOSE 1 2020 208 complet ed [facility] ZOSTER RECOMBINANT 1 2018 187 complet ed [facility] TDAP 1 2017 115 complet ed HISTORICA L INFORMATI ON - FROM OTHER REGISTRY, [facility] Results Combined list of recent chemistry, hematology and other laboratory results from Department of Defense and Veterans Affairs, ranging from 15 months to all on record, depending upon the facility. Order Name Results Value Reference Range Date Interpretation Specimen Comments Source LIPID PROFILE CHOLESTERO L [MASS/VOLU ME] IN SERUM OR PLASMA 136 mg/dL 0 - 200 12/03 Specimen Type: PLASMA Comment: LDL REF RANGE: OPTIMAL: <100 mg/dL BORDERLINE HIGH: 130-159 mg/dL LDL HIGH: 160-189 mg/dL VERY HIGH: >=190 TRIG REF RANGE: NORMAL <150 mg/dL BORDERLINE HIGH: 150-199 mg/dL TRIG HIGH: 200-499 mg/dL VERY HIGH: >=500 mg/dL Ordering Provider: TREASURE GREGORY Report Released Date/Time: Dec 12, 2022 09:15 AM Reporting Lab: [address] [phone] Performing Lab: [address] [phone] [facility] LIPID PROFILE CHOLESTERO L IN LDL [MASS/VOLU ME] IN SERUM OR PLASMA BY DIRECT ASSAY 80 mg/dL 0 - 100 12/03 Specimen Type: PLASMA Comment: LDL REF RANGE: OPTIMAL: <100 mg/dL BORDERLINE HIGH: 130-159 mg/dL LDL HIGH: 160-189 mg/dL VERY HIGH: >=190 TRIG REF RANGE: NORMAL <150 mg/dL BORDERLINE HIGH: 150-199 mg/dL TRIG HIGH: 200-499 mg/dL VERY HIGH: >=500 mg/dL Ordering Provider: TREASURE GREGORY Report Released Date/Time: Dec 12, 2022 09:15 AM Reporting Lab: [place] [phone] Performing Lab: [place] [phone] LIPID PROFILE CHOLESTERO L IN HDL [MASS/VOLU ME] IN SERUM OR PLASMA 53 mg/dL 40 - 60 12/03 Specimen Type: PLASMA Comment: LDL REF RANGE: OPTIMAL: <100 mg/dL BORDERLINE HIGH: 130-159 mg/dL LDL HIGH: 160-189 mg/dL VERY HIGH: >=190 TRIG REF RANGE: NORMAL <150 mg/dL BORDERLINE HIGH: 150-199 mg/dL TRIG HIGH: 200-499 mg/dL VERY HIGH: >=500 mg/dL Ordering Provider: TREASURE GREGORY Report Released Date/Time: Dec 12, 2022 09:15 AM Reporting Lab: [place] [phone] Performing Lab: [place] [phone] LIPID PROFILE TRIGLYCERI DE [MASS/VOLU ME] IN SERUM OR PLASMA 139 mg/dL 0 - 150 12/03 Specimen Type: PLASMA Comment: LDL REF RANGE: OPTIMAL: <100 mg/dL BORDERLINE HIGH: 130-159 mg/dL LDL HIGH: 160-189 mg/dL VERY HIGH: >=190 TRIG REF RANGE: NORMAL <150 mg/dL BORDERLINE HIGH: 150-199 mg/dL TRIG HIGH: 200-499 mg/dL VERY HIGH: >=500 mg/dL Ordering Provider: TREASURE GREGORY Report Released Date/Time: Dec 12, 2022 09:15 AM Reporting Lab: [place] [phone] Performing Lab: [place] [phone] [facility] COMPREHE NSIVE METABOLI C PANEL ALBUMIN [MASS/VOLU ME] IN SERUM OR PLASMA 4.1 g/dL 3.2 - 4.6 12/03 Specimen Type: PLASMA Comment: LDL REF RANGE: OPTIMAL: <100 mg/dL BORDERLINE HIGH: 130-159 mg/dL LDL HIGH: 160-189 mg/dL VERY HIGH: >=190 TRIG REF RANGE: NORMAL <150 mg/dL BORDERLINE HIGH: 150-199 mg/dL TRIG HIGH: 200-499 mg/dL VERY HIGH: >=500 mg/dL Ordering Provider: TREASURE GREGORY Report Released Date/Time: Dec 12, 2022 09:14 AM Reporting Lab: [place] [phone] Performing Lab: [place] [phone] [facility] COMPREHE NSIVE METABOLI C PANEL ALKALINE PHOSPHATAS E [ENZYMATIC ACTIVITY/V OLUME] IN SERUM OR PLASMA 63 U/L 46 - 116 12/03 Specimen Type: PLASMA Comment: LDL REF RANGE: OPTIMAL: <100 mg/dL BORDERLINE HIGH: 130-159 mg/dL LDL HIGH: 160-189 mg/dL VERY HIGH: >=190 TRIG REF RANGE: NORMAL <150 mg/dL BORDERLINE HIGH: 150-199 mg/dL TRIG HIGH: 200-499 mg/dL VERY HIGH: >=500 mg/dL Ordering Provider: TREASURE GREGORY Report Released Date/Time: Dec 12, 2022 09:14 AM Reporting Lab: [place] [phone] Performing Lab: [place] [phone] [facility] COMPREHE NSIVE METABOLI C PANEL ALANINE AMINOTRANS FERASE [ENZYMATIC ACTIVITY/V OLUME] IN SERUM OR PLASMA 17 U/L 0 - 55 12/03 Specimen Type: PLASMA Comment: LDL REF RANGE: OPTIMAL: <100 mg/dL BORDERLINE HIGH: 130-159 mg/dL LDL HIGH: 160-189 mg/dL VERY HIGH: >=190 TRIG REF RANGE: NORMAL <150 mg/dL BORDERLINE HIGH: 150-199 mg/dL TRIG HIGH: 200-499 mg/dL VERY HIGH: >=500 mg/dL Ordering Provider: TREASURE GREGORY Report Released Date/Time: Dec 12, 2022 09:14 AM Reporting Lab: [place] [phone] Performing Lab: [place] [phone] [place] [address] COMPREHE NSIVE METABOLI C PANEL ASPARTATE AMINOTRANS FERASE [ENZYMATIC ACTIVITY/V OLUME] IN SERUM OR PLASMA 20 U/L 5 - 34 12/03 Specimen Type: PLASMA Comment: LDL REF RANGE: OPTIMAL: <100 mg/dL BORDERLINE HIGH: 130-159 mg/dL LDL HIGH: 160-189 mg/dL VERY HIGH: >=190 TRIG REF RANGE: NORMAL <150 mg/dL BORDERLINE HIGH: 150-199 mg/dL TRIG HIGH: 200-499 mg/dL VERY HIGH: >=500 mg/dL Ordering Provider: TREASURE GREGORY Report Released Date/Time: Dec 12, 2022 09:14 AM Reporting Lab: [place] [phone] Performing Lab: [place] [phone] [place] [address] COMPREHE NSIVE METABOLI C PANEL UREA NITROGEN [MASS/VOLU ME] IN SERUM OR PLASMA 27 mg/dL 12/03 H Specimen Type: PLASMA Comment: LDL REF RANGE: OPTIMAL: <100 mg/dL BORDERLINE HIGH: 130-159 mg/dL LDL HIGH: 160-189 mg/dL VERY HIGH: >=190 TRIG REF RANGE: NORMAL <150 mg/dL BORDERLINE HIGH: 150-199 mg/dL TRIG HIGH: 200-499 mg/dL VERY HIGH: >=500 mg/dL Ordering Provider: TREASURE GREGORY Report Released Date/Time: Dec 12, 2022 09:14 AM Reporting Lab: [place] [phone] Performing Lab: [place] [phone] [place] [address] COMPREHE NSIVE METABOLI C PANEL CALCIUM [MASS/VOLU ME] IN SERUM OR PLASMA 9.6 mg/dL 8.5 - 10.1 12/03 Specimen Type: PLASMA Comment: LDL REF RANGE: OPTIMAL: <100 mg/dL BORDERLINE HIGH: 130-159 mg/dL LDL HIGH: 160-189 mg/dL VERY HIGH: >=190 TRIG REF RANGE: NORMAL <150 mg/dL BORDERLINE HIGH: 150-199 mg/dL TRIG HIGH: 200-499 mg/dL VERY HIGH: >=500 mg/dL Ordering Provider: TREASURE GREGORY Report Released Date/Time: Dec 12, 2022 09:14 AM Reporting Lab: [place] [phone] Performing Lab: [place] [phone] [facility] COMPREHE NSIVE METABOLI C PANEL CREATININE [MASS/VOLU ME] IN SERUM OR PLASMA 1.2 mg/dL 0.7 - 1.3 12/03 Specimen Type: PLASMA Comment: LDL REF RANGE: OPTIMAL: <100 mg/dL BORDERLINE HIGH: 130-159 mg/dL LDL HIGH: 160-189 mg/dL VERY HIGH: >=190 TRIG REF RANGE: NORMAL <150 mg/dL BORDERLINE HIGH: 150-199 mg/dL TRIG HIGH: 200-499 mg/dL VERY HIGH: >=500 mg/dL Ordering Provider: TREASURE GREGORY Report Released Date/Time: Dec 12, 2022 09:14 AM Reporting Lab: [place] [phone] Performing Lab: [place] [phone] [facility] COMPREHE NSIVE METABOLI C PANEL CARBON DIOXIDE, TOTAL [MOLES/VOL UME] IN SERUM OR PLASMA 25 mmol/L 22 - 12/03 Specimen Type: PLASMA Comment: LDL REF RANGE: OPTIMAL: <100 mg/dL BORDERLINE HIGH: 130-159 mg/dL LDL HIGH: 160-189 mg/dL VERY HIGH: >=190 TRIG REF RANGE: NORMAL <150 mg/dL BORDERLINE HIGH: 150-199 mg/dL TRIG HIGH: 200-499 mg/dL VERY HIGH: >=500 mg/dL Ordering Provider: TREASURE GREGORY Report Released Date/Time: Dec 12, 2022 09:14 AM Reporting Lab: [place] [phone] Performing Lab: [place] [phone] [facility] COMPREHE NSIVE METABOLI C PANEL GLUCOSE [MASS/VOLU ME] IN SERUM OR PLASMA 98 mg/dL 74 - 100 12/03 Specimen Type: PLASMA Comment: LDL REF RANGE: OPTIMAL: <100 mg/dL BORDERLINE HIGH: 130-159 mg/dL LDL HIGH: 160-189 mg/dL VERY HIGH: >=190 TRIG REF RANGE: NORMAL <150 mg/dL BORDERLINE HIGH: 150-199 mg/dL TRIG HIGH: 200-499 mg/dL VERY HIGH: >=500 mg/dL Ordering Provider: TREASURE GREGORY Report Released Date/Time: Dec 12, 2022 09:14 AM Reporting Lab: [place] [phone] Performing Lab: [place] [phone] [facility] COMPREHE NSIVE METABOLI C PANEL PROTEIN [MASS/VOLU ME] IN SERUM OR PLASMA 6.8 g/dL 6.4 - 8.3 12/03 Specimen Type: PLASMA Comment: LDL REF RANGE: OPTIMAL: <100 mg/dL BORDERLINE HIGH: 130-159 mg/dL LDL HIGH: 160-189 mg/dL VERY HIGH: >=190 TRIG REF RANGE: NORMAL <150 mg/dL BORDERLINE HIGH: 150-199 mg/dL TRIG HIGH: 200-499 mg/dL VERY HIGH: >=500 mg/dL Ordering Provider: TREASURE GREGORY Report Released Date/Time: Dec 12, 2022 09:14 AM Reporting Lab: [place] [phone] Performing Lab: [place] [phone] [facility] COMPREHE NSIVE METABOLI C PANEL SODIUM [MOLES/VOL UME] IN SERUM OR PLASMA 137 mmol/L 136 - 145 12/03 Specimen Type: PLASMA Comment: LDL REF RANGE: OPTIMAL: <100 mg/dL BORDERLINE HIGH: 130-159 mg/dL LDL HIGH: 160-189 mg/dL VERY HIGH: >=190 TRIG REF RANGE: NORMAL <150 mg/dL BORDERLINE HIGH: 150-199 mg/dL TRIG HIGH: 200-499 mg/dL VERY HIGH: >=500 mg/dL Ordering Provider: TREASURE GREGORY Report Released Date/Time: Dec 12, 2022 09:14 AM Reporting Lab: [address] [phone] Performing Lab: [place] [phone] [facility] COMPREHE NSIVE METABOLI C PANEL CHLORIDE [MOLES/VOL UME] IN SERUM OR PLASMA 106 mmol/L 98 - 107 12/03 Specimen Type: PLASMA Comment: LDL REF RANGE: OPTIMAL: <100 mg/dL BORDERLINE HIGH: 130-159 mg/dL LDL HIGH: 160-189 mg/dL VERY HIGH: >=190 TRIG REF RANGE: NORMAL <150 mg/dL BORDERLINE HIGH: 150-199 mg/dL TRIG HIGH: 200-499 mg/dL VERY HIGH: >=500 mg/dL Ordering Provider: TREASURE GREGORY Report Released Date/Time: Dec 12, 2022 09:14 AM Reporting Lab: [place] [phone] Performing Lab: [place] [phone] [place] [address] COMPREHE NSIVE METABOLI C PANEL BILIRUBIN. TOTAL [MASS/VOLU ME] IN SERUM OR PLASMA 1.4 mg/dL 0.2 - 1.2 12/03 H Specimen Type: PLASMA Comment: LDL REF RANGE: OPTIMAL: <100 mg/dL BORDERLINE HIGH: 130-159 mg/dL LDL HIGH: 160-189 mg/dL VERY HIGH: >=190 TRIG REF RANGE: NORMAL <150 mg/dL BORDERLINE HIGH: 150-199 mg/dL TRIG HIGH: 200-499 mg/dL VERY HIGH: >=500 mg/dL Ordering Provider: TREASURE GREGORY Report Released Date/Time: Dec 12, 2022 09:14 AM Reporting Lab: [place] [phone] Performing Lab: [place] [phone] [facility] COMPREHE NSIVE METABOLI C PANEL POTASSIUM [MOLES/VOL UME] IN SERUM OR PLASMA 4.3 mmol/L 3.5 - 5.1 12/03 Specimen Type: PLASMA Comment: LDL REF RANGE: OPTIMAL: <100 mg/dL BORDERLINE HIGH: 130-159 mg/dL LDL HIGH: 160-189 mg/dL VERY HIGH: >=190 TRIG REF RANGE: NORMAL <150 mg/dL BORDERLINE HIGH: 150-199 mg/dL TRIG HIGH: 200-499 mg/dL VERY HIGH: >=500 mg/dL Ordering Provider: TREASURE GREGORY Report Released Date/Time: Dec 12, 2022 09:14 AM Reporting Lab: [place] [phone] Performing Lab: [place] [phone] COMPREHE NSIVE METABOLI C PANEL ANION GAP IN SERUM OR PLASMA 10.0 10 - 20 12/03 Specimen Type: PLASMA Comment: LDL REF RANGE: OPTIMAL: <100 mg/dL BORDERLINE HIGH: 130-159 mg/dL LDL HIGH: 160-189 mg/dL VERY HIGH: >=190 TRIG REF RANGE: NORMAL <150 mg/dL BORDERLINE HIGH: 150-199 mg/dL TRIG HIGH: 200-499 mg/dL VERY HIGH: >=500 mg/dL Ordering Provider: TREASURE GREGORY Report Released Date/Time: Dec 12, 2022 09:14 AM Reporting Lab: [place] [phone] Performing Lab: [place] [phone] [place] [address] COMPREHE NSIVE METABOLI C PANEL GLOMERULAR FILTRATION RATE/1.73 SQ M.PREDICTE D [VOLUME RATE/AREA] IN SERUM, PLASMA OR BLOOD BY CREATININE -BASED FORMULA (CKD-EPI 2020) 61.0 mL/min 12/03 Specimen Type: PLASMA Comment: LDL REF RANGE: OPTIMAL: <100 mg/dL BORDERLINE HIGH: 130-159 mg/dL LDL HIGH: 160-189 mg/dL VERY HIGH: >=190 TRIG REF RANGE: NORMAL <150 mg/dL BORDERLINE HIGH: 150-199 mg/dL TRIG HIGH: 200-499 mg/dL VERY HIGH: >=500 mg/dL Ordering Provider: TREASURE GREGORY Report Released Date/Time: Dec 12, 2022 09:14 AM Reporting Lab: [place] [phone] Performing Lab: [place] [phone] TSH THYROTROPI N [UNITS/VOL UME] IN SERUM OR PLASMA BY DETECTION LIMIT <= 0.005 MIU/L 1.351 u[IU]/mL 0.360 - 4.500 12/03 Specimen Type: PLASMA Comment: LDL REF RANGE: OPTIMAL: <100 mg/dL BORDERLINE HIGH: 130-159 mg/dL LDL HIGH: 160-189 mg/dL VERY HIGH: >=190 TRIG REF RANGE: NORMAL <150 mg/dL BORDERLINE HIGH: 150-199 mg/dL TRIG HIGH: 200-499 mg/dL VERY HIGH: >=500 mg/dL Ordering Provider: TREASURE GREGORY Report Released Date/Time: Dec 12, 2022 09:15 AM Reporting Lab: [place] [phone] Performing Lab: [place] [phone] VITAMIN D (TOTAL) 25-HYDROXY VITAMIN D3+25-HYDR OXYVITAMIN D2 [MASS/VOLU ME] IN SERUM OR PLASMA 39.00 ng/mL 30.00 - 75.00 12/03 Specimen Type: SERUM No comment entered. Ordering Provider: TREASURE GREGORY Report Released Date/Time: Dec 12, 2022 09:15 AM Reporting Lab: [address] [phone] Performing Lab: [place] [phone] [place] [address] CBC LEUKOCYTES [#/VOLUME] IN BLOOD BY AUTOMATED COUNT 9.4 10*3/uL 3.6 - 11.0 12/03 Specimen Type: BLOOD No comment entered. Ordering Provider: TREASURE GREGORY Report Released Date/Time: Dec 12, 2022 09:15 AM Reporting Lab: [address] [phone] Performing Lab: [place] [phone] [place] [address] CBC ERYTHROCYT ES [#/VOLUME] IN BLOOD BY AUTOMATED COUNT 5.43 10*6/uL 4.47 - 5.83 12/03 Specimen Type: BLOOD No comment entered. Ordering Provider: TREASURE GREGORY Report Released Date/Time: Dec 12, 2022 09:15 AM Reporting Lab: [address] [phone] Performing Lab: [address] [phone] [facility] CBC HEMOGLOBIN [MASS/VOLU ME] IN BLOOD 13.9 g/dL 13.6 - 17.4 12/03 Specimen Type: BLOOD No comment entered. Ordering Provider: TREASURE GREGORY Report Released Date/Time: Dec 12, 2022 09:15 AM Reporting Lab: [address] [phone] Performing Lab: [place] [phone] [facility] CBC HEMATOCRIT [VOLUME FRACTION] OF BLOOD BY AUTOMATED COUNT 42.5 40.0 - 51.0 12/03 Specimen Type: BLOOD No comment entered. Ordering Provider: TREASURE GREGORY Report Released Date/Time: Dec 12, 2022 09:15 AM Reporting Lab: [address] [phone] Performing Lab: [place] [phone] [place] [address] CBC MCV [ENTITIC VOLUME] BY AUTOMATED COUNT 78.2 fL 80.0 - 96.0 12/03 L Specimen Type: BLOOD No comment entered. Ordering Provider: TREASURE GREGORY Report Released Date/Time: Dec 12, 2022 09:15 AM Reporting Lab: [place] [phone] Performing Lab: [place] [phone] [facility] CBC MCH [ENTITIC MASS] BY AUTOMATED COUNT 25.6 pg 27.0 - 31.0 12/03 L Specimen Type: BLOOD No comment entered. Ordering Provider: TREASURE GREGORY Report Released Date/Time: Dec 12, 2022 09:15 AM Reporting Lab: [address] [phone] Performing Lab: [place] [phone] [facility] CBC MCHC [MASS/VOLU ME] BY AUTOMATED COUNT 32.7 g/dL 31.5 - 36.5 12/03 Specimen Type: BLOOD No comment entered. Ordering Provider: TREASURE GREGORY Report Released Date/Time: Dec 12, 2022 09:15 AM Reporting Lab: [address] [phone] Performing Lab: [place] [phone] [facility] CBC PLATELETS [#/VOLUME] IN BLOOD BY AUTOMATED COUNT 212 10*3/uL 150 - 400 12/03 Specimen Type: BLOOD No comment entered. Ordering Provider: TREASURE GREGORY Report Released Date/Time: Dec 12, 2022 09:15 AM Reporting Lab: [place] [phone] Performing Lab: [place] [phone] [place] [address] CBC NUCLEATED ERYTHROCYT ES/100 LEUKOCYTES [RATIO] IN BLOOD BY MANUAL COUNT 0.1 /100{WBC s} 12/03 Specimen Type: BLOOD No comment entered. Ordering Provider: TREASURE GREGORY Report Released Date/Time: Dec 12, 2022 09:15 AM Reporting Lab: [place] [phone] Performing Lab: [place] [phone] [place] [address] CBC ERYTHROCYT E DISTRIBUTI ON WIDTH [RATIO] BY AUTOMATED COUNT 20.2 11.2 - 15.8 12/03 H Specimen Type: BLOOD No comment entered. Ordering Provider: TREASURE GREGORY Report Released Date/Time: Dec 12, 2022 09:15 AM Reporting Lab: [place] [phone] Performing Lab: [place] [phone] [place] [address] CBC PLATELET MEAN VOLUME [ENTITIC VOLUME] IN BLOOD BY AUTOMATED COUNT 8.5 fL 7.4 - 11.4 12/03 Specimen Type: BLOOD No comment entered. Ordering Provider: TREASURE GREGORY Report Released Date/Time: Dec 12, 2022 09:15 AM Reporting Lab: [place] [phone] Performing Lab: [place] [phone] [facility] CBC LYMPHOCYTE S/100 LEUKOCYTES IN BLOOD BY AUTOMATED COUNT 22.1 21.0 - 51.0 12/03 Specimen Type: BLOOD No comment entered. Ordering Provider: TREASURE GREGORY Report Released Date/Time: Dec 12, 2022 09:15 AM Reporting Lab: [place] [phone] Performing Lab: [place] [phone] [place] [address] CBC MONOCYTES/ 100 LEUKOCYTES IN BLOOD BY AUTOMATED COUNT 11.5 4.0 - 8.0 12/03 H Specimen Type: BLOOD No comment entered. Ordering Provider: TREASURE GREGORY Report Released Date/Time: Dec 12, 2022 09:15 AM Reporting Lab: [place] [phone] Performing Lab: [place] [phone] [place] [address] CBC NEUTROPHIL S/100 LEUKOCYTES IN BLOOD BY AUTOMATED COUNT 64.3 54.0 - 78.0 12/03 Specimen Type: BLOOD No comment entered. Ordering Provider: TREASURE GREGORY Report Released Date/Time: Dec 12, 2022 09:15 AM Reporting Lab: [place] [phone] Performing Lab: [place] [phone] [place] [address] CBC EOSINOPHIL S/100 LEUKOCYTES IN BLOOD BY AUTOMATED COUNT 1.5 0.0 - 3.0 12/03 Specimen Type: BLOOD No comment entered. Ordering Provider: TREASURE GREGORY Report Released Date/Time: Dec 12, 2022 09:15 AM Reporting Lab: [place] [phone] Performing Lab: [place] [phone] [place] [address] CBC BASOPHILS/ 100 LEUKOCYTES IN BLOOD BY AUTOMATED COUNT 0.6 0.0 - 3.0 12/03 Specimen Type: BLOOD No comment entered. Ordering Provider: TREASURE GREGORY Report Released Date/Time: Dec 12, 2022 09:15 AM Reporting Lab: [address] [phone] Performing Lab: [address] [phone] [facility] CBC LYMPHOCYTE S [#/VOLUME] IN BLOOD BY AUTOMATED COUNT 2.1 10*3/uL 0.8 - 5.0 12/03 Specimen Type: BLOOD No comment entered. Ordering Provider: TREASURE GREGORY Report Released Date/Time: Dec 12, 2022 09:15 AM Reporting Lab: [place] [phone] Performing Lab: [place] [phone] [facility] CBC NEUTROPHIL S [#/VOLUME] IN BLOOD 6.2 10*3/uL 1.9 - 8.6 12/03 Specimen Type: BLOOD No comment entered. Ordering Provider: TREASURE GREGORY Report Released Date/Time: Dec 12, 2022 09:15 AM Reporting Lab: [place] [phone] Performing Lab: [place] [phone] CBC BASOPHILS [#/VOLUME] IN BLOOD BY AUTOMATED COUNT 0.1 10*3/uL 0.0 - 0.3 12/03 Specimen Type: BLOOD No comment entered. Ordering Provider: TREASURE GREGORY Report Released Date/Time: Dec 12, 2022 09:15 AM Reporting Lab: [place] [phone] Performing Lab: [place] [phone] CBC MONOCYTES [#/VOLUME] IN BLOOD BY AUTOMATED COUNT 1.1 10*3/uL 0.1 - 0.9 12/03 H Specimen Type: BLOOD No comment entered. Ordering Provider: TREASURE GREGORY Report Released Date/Time: Dec 12, 2022 09:15 AM Reporting Lab: [place] [phone] Performing Lab: [place] [phone] [place] [address] CBC EOSINOPHIL S [#/VOLUME] IN BLOOD BY AUTOMATED COUNT 0.1 10*3/uL 0.0 - 0.3 12/03 Specimen Type: BLOOD No comment entered. Ordering Provider: TREASURE GREGORY Report Released Date/Time: Dec 12, 2022 09:15 AM Reporting Lab: [place] [phone] Performing Lab: [address] [phone] [facility] MAGNESIU M MAGNESIUM [MASS/VOLU ME] IN SERUM OR PLASMA 2.0 mg/dL 1.6 - 2.6 12/03 Specimen Type: PLASMA Comment: LDL REF RANGE: OPTIMAL: <100 mg/dL BORDERLINE HIGH: 130-159 mg/dL LDL HIGH: 160-189 mg/dL VERY HIGH: >=190 TRIG REF RANGE: NORMAL <150 mg/dL BORDERLINE HIGH: 150-199 mg/dL TRIG HIGH: 200-499 mg/dL VERY HIGH: >=500 mg/dL Ordering Provider: TERASURE GREGORY Report Released Date/Time: Dec 12, 2022 09:15 AM Reporting Lab: [place] [phone] Performing Lab: [place] [phone] [place] [address] URINALYS IS SPECIFIC GRAVITY OF URINE 1.013 1.016 - 1.022 12/03 L Specimen Type: URINE No comment entered. Ordering Provider: TREASURE GREGORY Report Released Date/Time: Dec 12, 2022 09:15 AM Reporting Lab: [address] [phone] Performing Lab: [place] [phone] [place] [address] URINALYS IS GLUCOSE [MASS/VOLU ME] IN URINE BY TEST STRIP Negative mg/dL 12/03 Specimen Type: URINE No comment entered. Ordering Provider: TREASRUE GREGORY Report Released Date/Time: Dec 12, 2022 09:15 AM Reporting Lab: [address] [phone] Performing Lab: [place] [phone] [facility] URINALYS IS PROTEIN [MASS/VOLU ME] IN URINE BY TEST STRIP Negative mg/dL 12/03 Specimen Type: URINE No comment entered. Ordering Provider: TREASURE GREGORY Report Released Date/Time: Dec 12, 2022 09:15 AM Reporting Lab: [address] [phone] Performing Lab: [place] [phone] [facility] URINALYS IS PH OF URINE BY TEST STRIP 6.0 5.0 - 8.0 12/03 Specimen Type: URINE No comment entered. Ordering Provider: TREASURE GREGORY Report Released Date/Time: Dec 12, 2022 09:15 AM Reporting Lab: [place] [phone] Performing Lab: [place] [phone] [facility] URINALYS IS LEUKOCYTES [#/AREA] IN URINE SEDIMENT BY MICROSCOPY HIGH POWER FIELD 23 /[HPF] - 4 12/03 H Specimen Type: URINE No comment entered. Ordering Provider: TREASURE GREGORY Report Released Date/Time: Dec 12, 2022 09:15 AM Reporting Lab: [place] [phone] Performing Lab: [place] [phone] [place] [address] URINALYS IS BACTERIA [PRESENCE] IN URINE SEDIMENT BY LIGHT MICROSCOPY 3+ 12/03 H Specimen Type: URINE No comment entered. Ordering Provider: TREASURE GREGORY Report Released Date/Time: Dec 12, 2022 09:15 AM Reporting Lab: [place] [phone] Performing Lab: [place] [phone] [place] [address] URINALYS IS ERYTHROCYT ES [#/AREA] IN URINE SEDIMENT BY MICROSCOPY HIGH POWER FIELD 3 /[HPF] - 4 12/03 Specimen Type: URINE No comment entered. Ordering Provider: TREASURE GREGORY Report Released Date/Time: Dec 12, 2022 09:15 AM Reporting Lab: [place] [phone] Performing Lab: [place] [phone] [place] [address] URINALYS IS NITRITE [PRESENCE] IN URINE BY TEST STRIP Negative 12/03 Specimen Type: URINE No comment entered. Ordering Provider: TREASURE GREGORY Report Released Date/Time: Dec 12, 2022 09:15 AM Reporting Lab: [place] [phone] Performing Lab: [address] [phone] [facility] URINALYS IS LEUKOCYTE ESTERASE [PRESENCE] IN URINE BY TEST STRIP 250 12/03 H Specimen Type: URINE No comment entered. Ordering Provider: TREASURE GREGORY Report Released Date/Time: Dec 12, 2022 09:15 AM Reporting Lab: [place] [phone] Performing Lab: [place] [phone] [place] [address] URINALYS IS CLARITY OF URINE Clear 12/03 Specimen Type: URINE No comment entered. Ordering Provider: TREASURE GREGORY Report Released Date/Time: Dec 12, 2022 09:15 AM Reporting Lab: [place] [phone] Performing Lab: [place] [phone] [place] [address] URINALYS IS MUCUS [PRESENCE] IN URINE SEDIMENT BY LIGHT MICROSCOPY Present 12/03 H Specimen Type: URINE No comment entered. Ordering Provider: TREASURE GREGORY Report Released Date/Time: Dec 12, 2022 09:15 AM Reporting Lab: [place] [phone] Performing Lab: [place] [phone] [place] [address] URINALYS IS BILIRUBIN. TOTAL [MASS/VOLU ME] IN URINE BY TEST STRIP Negative mg/dL - 0.4 12/03 Specimen Type: URINE No comment entered. Ordering Provider: TREASURE GREGORY Report Released Date/Time: Dec 12, 2022 09:15 AM Reporting Lab: [place] [phone] Performing Lab: [place] [phone] [place] [address] URINALYS IS HEMOGLOBIN [PRESENCE] IN URINE BY TEST STRIP Negative mg/dL <0.05 - 0.05 12/03 Specimen Type: URINE No comment entered. Ordering Provider: TREASURE GREGORY Report Released Date/Time: Dec 12, 2022 09:15 AM Reporting Lab: [place] [phone] Performing Lab: [place] [phone] [facility] URINALYS IS UROBILINOG EN [MASS/VOLU ME] IN URINE Negative mg/dL - 1 12/03 Specimen Type: URINE No comment entered. Ordering Provider: TREASURE GREGORY Report Released Date/Time: Dec 12, 2022 09:15 AM Reporting Lab: [place] [phone] Performing Lab: [place] [phone] [place] [address] URINALYS IS KETONES [MASS/VOLU ME] IN URINE BY TEST STRIP Negative mg/dL - 9 12/03 Specimen Type: URINE No comment entered. Ordering Provider: TREASURE GREGORY Report Released Date/Time: Dec 12, 2022 09:15 AM Reporting Lab: [place] [phone] Performing Lab: [place] [phone] URINALYS IS COLOR OF URINE Light-Ye llow 12/03 Specimen Type: URINE No comment entered. Ordering Provider: TREASURE GREGORY Report Released Date/Time: Dec 12, 2022 09:15 AM Reporting Lab: [place] [phone] Performing Lab: [place] [phone] [place] [address] COMPREHE NSIVE METABOLI C PANEL ALBUMIN [MASS/VOLU ME] IN SERUM OR PLASMA 3.9 g/dL 3.2 - 4.8 12/05 Specimen Type: PLASMA Comment: TRIGLYCERID E REF RANGE: NORMAL <150 mg/dL BORDERLINE HIGH: 150-199 TRIGLYCERID E mg/dL HIGH: 200-499 mg/dL VERY HIGH: >=500 mg/dL CREATININE eGFR was calculated using the CKD-EPI 2020 equation. Ordering Provider: TREASURE GREGROY Report Released Date/Time: Dec 12, 2021 09:22 AM Reporting Lab: [place] [phone] Performing Lab: [place] [phone] [facility] COMPREHE NSIVE METABOLI C PANEL ALKALINE PHOSPHATAS E [ENZYMATIC ACTIVITY/V OLUME] IN SERUM OR PLASMA 58 U/L 46 - 116 12/05 Specimen Type: PLASMA Comment: TRIGLYCERID E REF RANGE: NORMAL <150 mg/dL BORDERLINE HIGH: 150-199 TRIGLYCERID E mg/dL HIGH: 200-499 mg/dL VERY HIGH: >=500 mg/dL CREATININE eGFR was calculated using the CKD-EPI 2020 equation. Ordering Provider: TREASURE GREGORY Report Released Date/Time: Dec 12, 2021 09:22 AM Reporting Lab: [place] [phone] Performing Lab: [place] [phone] COMPREHE NSIVE METABOLI C PANEL ALANINE AMINOTRANS FERASE [ENZYMATIC ACTIVITY/V OLUME] IN SERUM OR PLASMA 18 U/L 10 - 45 12/05 Specimen Type: PLASMA Comment: TRIGLYCERID E REF RANGE: NORMAL <150 mg/dL BORDERLINE HIGH: 150-199 TRIGLYCERID E mg/dL HIGH: 200-499 mg/dL VERY HIGH: >=500 mg/dL CREATININE eGFR was calculated using the CKD-EPI 2020 equation. Ordering Provider: TREASURE GREGORY Report Released Date/Time: Dec 12, 2021 09:22 AM Reporting Lab: [place] [phone] Performing Lab: [place] [phone] COMPREHE NSIVE METABOLI C PANEL ASPARTATE AMINOTRANS FERASE [ENZYMATIC ACTIVITY/V OLUME] IN SERUM OR PLASMA 10 U/L 0 - 33.9 12/05 Specimen Type: PLASMA Comment: TRIGLYCERID E REF RANGE: NORMAL <150 mg/dL BORDERLINE HIGH: 150-199 TRIGLYCERID E mg/dL HIGH: 200-499 mg/dL VERY HIGH: >=500 mg/dL CREATININE eGFR was calculated using the CKD-EPI 2020 equation. Ordering Provider: TREASURE GREGORY Report Released Date/Time: Dec 12, 2021 09:22 AM Reporting Lab: [place] [phone] Performing Lab: [place] [phone] COMPREHE NSIVE METABOLI C PANEL UREA NITROGEN [MASS/VOLU ME] IN SERUM OR PLASMA 19 mg/dL 9 - 12/05 Specimen Type: PLASMA Comment: TRIGLYCERID E REF RANGE: NORMAL <150 mg/dL BORDERLINE HIGH: 150-199 TRIGLYCERID E mg/dL HIGH: 200-499 mg/dL VERY HIGH: >=500 mg/dL CREATININE eGFR was calculated using the CKD-EPI 2020 equation. Ordering Provider: TREASURE GREGORY Report Released Date/Time: Dec 12, 2021 09:22 AM Reporting Lab: [place] [phone] Performing Lab: [place] [phone] COMPREHE NSIVE METABOLI C PANEL CALCIUM [MASS/VOLU ME] IN SERUM OR PLASMA 9.2 mg/dL 8.7 - 10.4 12/05 Specimen Type: PLASMA Comment: TRIGLYCERID E REF RANGE: NORMAL <150 mg/dL BORDERLINE HIGH: 150-199 TRIGLYCERID E mg/dL HIGH: 200-499 mg/dL VERY HIGH: >=500 mg/dL CREATININE eGFR was calculated using the CKD-EPI 2020 equation. Ordering Provider: TREASURE GREGORY Report Released Date/Time: Dec 12, 2021 09:22 AM Reporting Lab: [place] [phone] Performing Lab: [place] [phone] [place] [address] COMPREHE NSIVE METABOLI C PANEL CREATININE [MASS/VOLU ME] IN SERUM OR PLASMA 1.1 mg/dL 0.70 - 1.30 12/05 Specimen Type: PLASMA Comment: TRIGLYCERID E REF RANGE: NORMAL <150 mg/dL BORDERLINE HIGH: 150-199 TRIGLYCERID E mg/dL HIGH: 200-499 mg/dL VERY HIGH: >=500 mg/dL CREATININE eGFR was calculated using the CKD-EPI 2020 equation. Ordering Provider: TREASURE GREGORY Report Released Date/Time: Dec 12, 2021 09:22 AM Reporting Lab: [address] [phone] Performing Lab: [place] [phone] [place] [address] COMPREHE NSIVE METABOLI C PANEL CARBON DIOXIDE, TOTAL [MOLES/VOL UME] IN SERUM OR PLASMA 23 mmol/L 21 - 32 12/05 Specimen Type: PLASMA Comment: TRIGLYCERID E REF RANGE: NORMAL <150 mg/dL BORDERLINE HIGH: 150-199 TRIGLYCERID E mg/dL HIGH: 200-499 mg/dL VERY HIGH: >=500 mg/dL CREATININE eGFR was calculated using the CKD-EPI 2020 equation. Ordering Provider: TREASURE GREGORY Report Released Date/Time: Dec 12, 2021 09:22 AM Reporting Lab: [place] [phone] Performing Lab: [address] COMPREHE NSIVE METABOLI C PANEL GLUCOSE [MASS/VOLU ME] IN SERUM OR PLASMA 125 mg/dL 74 - 106 12/05 H Specimen Type: PLASMA Comment: TRIGLYCERID E REF RANGE: NORMAL <150 mg/dL BORDERLINE HIGH: 150-199 TRIGLYCERID E mg/dL HIGH: 200-499 mg/dL VERY HIGH: >=500 mg/dL CREATININE eGFR was calculated using the CKD-EPI 2020 equation. Ordering Provider: TREASURE GREGORY Report Released Date/Time: Dec 12, 2021 09:22 AM Reporting Lab: [place] [phone] Performing Lab: [place] [phone] COMPREHE NSIVE METABOLI C PANEL PROTEIN [MASS/VOLU ME] IN SERUM OR PLASMA 6.8 g/dL 6.4 - 8.5 12/05 Specimen Type: PLASMA Comment: TRIGLYCERID E REF RANGE: NORMAL <150 mg/dL BORDERLINE HIGH: 150-199 TRIGLYCERID E mg/dL HIGH: 200-499 mg/dL VERY HIGH: >=500 mg/dL CREATININE eGFR was calculated using the CKD-EPI 2020 equation. Ordering Provider: TREASURE GREGORY Report Released Date/Time: Dec 12, 2021 09:22 AM Reporting Lab: [place] [phone] Performing Lab: [place] [phone] [place] [address] COMPREHE NSIVE METABOLI C PANEL SODIUM [MOLES/VOL UME] IN SERUM OR PLASMA 140 mmol/L 136 - 148 12/05 Specimen Type: PLASMA Comment: TRIGLYCERID E REF RANGE: NORMAL <150 mg/dL BORDERLINE HIGH: 150-199 TRIGLYCERID E mg/dL HIGH: 200-499 mg/dL VERY HIGH: >=500 mg/dL CREATININE eGFR was calculated using the CKD-EPI 2020 equation. Ordering Provider: TREASURE GREGORY Report Released Date/Time: Dec 12, 2021 09:22 AM Reporting Lab: [place] [phone] Performing Lab: [place] [phone] [place] [address] COMPREHE NSIVE METABOLI C PANEL CHLORIDE [MOLES/VOL UME] IN SERUM OR PLASMA 109 mmol/L 98 - 107 12/05 H Specimen Type: PLASMA Comment: TRIGLYCERID E REF RANGE: NORMAL <150 mg/dL BORDERLINE HIGH: 150-199 TRIGLYCERID E mg/dL HIGH: 200-499 mg/dL VERY HIGH: >=500 mg/dL CREATININE eGFR was calculated using the CKD-EPI 2020 equation. Ordering Provider: TREASURE GREGORY Report Released Date/Time: Dec 12, 2021 09:22 AM Reporting Lab: [place] [phone] Performing Lab: [place] [phone] COMPREHE NSIVE METABOLI C PANEL BILIRUBIN. TOTAL [MASS/VOLU ME] IN SERUM OR PLASMA 1.0 mg/dL 0.3 - 1.2 12/05 Specimen Type: PLASMA Comment: TRIGLYCERID E REF RANGE: NORMAL <150 mg/dL BORDERLINE HIGH: 150-199 TRIGLYCERID E mg/dL HIGH: 200-499 mg/dL VERY HIGH: >=500 mg/dL CREATININE eGFR was calculated using the CKD-EPI 2020 equation. Ordering Provider: TREASURE GREGORY Report Released Date/Time: Dec 12, 2021 09:22 AM Reporting Lab: [place] [phone] Performing Lab: [place] [phone] [place] [address] COMPREHE NSIVE METABOLI C PANEL POTASSIUM [MOLES/VOL UME] IN SERUM OR PLASMA 4.3 mmol/L 3.5 - 5.1 12/05 Specimen Type: PLASMA Comment: TRIGLYCERID E REF RANGE: NORMAL <150 mg/dL BORDERLINE HIGH: 150-199 TRIGLYCERID E mg/dL HIGH: 200-499 mg/dL VERY HIGH: >=500 mg/dL CREATININE eGFR was calculated using the CKD-EPI 2020 equation. Ordering Provider: TREASURE GREGORY Report Released Date/Time: Dec 12, 2021 09:22 AM Reporting Lab: [place] [phone] Performing Lab: [place] [phone] [place] [address] COMPREHE NSIVE METABOLI C PANEL ANION GAP IN SERUM OR PLASMA 12.3 mmol/L 10 - 12/05 Specimen Type: PLASMA Comment: TRIGLYCERID E REF RANGE: NORMAL <150 mg/dL BORDERLINE HIGH: 150-199 TRIGLYCERID E mg/dL HIGH: 200-499 mg/dL VERY HIGH: >=500 mg/dL CREATININE eGFR was calculated using the CKD-EPI 2020 equation. Ordering Provider: TREASURE GREGORY Report Released Date/Time: Dec 12, 2021 09:22 AM Reporting Lab: [place] [phone] Performing Lab: [address] COMPREHE NSIVE METABOLI C PANEL GLOMERULAR FILTRATION RATE/1.73 SQ M.PREDICTE D [VOLUME RATE/AREA] IN SERUM OR PLASMA BY CREATININE -BASED FORMULA (MDRD) 68 mL/min 12/05 Specimen Type: PLASMA Comment: TRIGLYCERID E REF RANGE: NORMAL <150 mg/dL BORDERLINE HIGH: 150-199 TRIGLYCERID E mg/dL HIGH: 200-499 mg/dL VERY HIGH: >=500 mg/dL CREATININE eGFR was calculated using the CKD-EPI 2020 equation. Ordering Provider: TREASURE GREGORY Report Released Date/Time: Dec 12, 2021 09:22 AM Reporting Lab: [place] [phone] Performing Lab: [place] [phone] [place] [address] MAGNESIU M MAGNESIUM [MASS/VOLU ME] IN SERUM OR PLASMA 1.2 mg/dL 1.8 - 2.4 12/05 L Specimen Type: PLASMA No comment entered. Ordering Provider: TREASURE GREGORY Report Released Date/Time: Dec 12, 2021 09:22 AM Reporting Lab: [place] [phone] Performing Lab: [address] LIPID PROFILE CHOLESTERO L [MASS/VOLU ME] IN SERUM OR PLASMA 116 mg/dL 135 - 200 12/05 L Specimen Type: PLASMA Comment: TRIGLYCERID E REF RANGE: NORMAL <150 mg/dL BORDERLINE HIGH: 150-199 TRIGLYCERID E mg/dL HIGH: 200-499 mg/dL VERY HIGH: >=500 mg/dL CREATININE eGFR was calculated using the CKD-EPI 2020 equation. Ordering Provider: TREASURE GREGORY Report Released Date/Time: Dec 12, 2021 09:22 AM Reporting Lab: [place] [phone] Performing Lab: [place] [phone] LIPID PROFILE CHOLESTERO L IN LDL [MASS/VOLU ME] IN SERUM OR PLASMA BY DIRECT ASSAY 59.0 mg/dL 0 - 110 12/05 Specimen Type: PLASMA Comment: TRIGLYCERID E REF RANGE: NORMAL <150 mg/dL BORDERLINE HIGH: 150-199 TRIGLYCERID E mg/dL HIGH: 200-499 mg/dL VERY HIGH: >=500 mg/dL CREATININE eGFR was calculated using the CKD-EPI 2020 equation. Ordering Provider: TREASRUE GREGORY Report Released Date/Time: Dec 12, 2021 09:22 AM Reporting Lab: [place] [phone] Performing Lab: [place] [phone] LIPID PROFILE CHOLESTERO L IN HDL [MASS/VOLU ME] IN SERUM OR PLASMA 39 mg/dL 40 - 60 12/05 L Specimen Type: PLASMA Comment: TRIGLYCERID E REF RANGE: NORMAL <150 mg/dL BORDERLINE HIGH: 150-199 TRIGLYCERID E mg/dL HIGH: 200-499 mg/dL VERY HIGH: >=500 mg/dL CREATININE eGFR was calculated using the CKD-EPI 2020 equation. Ordering Provider: TREASURE GREGORY Report Released Date/Time: Dec 12, 2021 09:22 AM Reporting Lab: [address] [phone] Performing Lab: [place] [phone] [facility] LIPID PROFILE TRIGLYCERI DE [MASS/VOLU ME] IN SERUM OR PLASMA 151 mg/dL 0 - 149 12/05 H Specimen Type: PLASMA Comment: TRIGLYCERID E REF RANGE: NORMAL <150 mg/dL BORDERLINE HIGH: 150-199 TRIGLYCERID E mg/dL HIGH: 200-499 mg/dL VERY HIGH: >=500 mg/dL CREATININE eGFR was calculated using the CKD-EPI 2020 equation. Ordering Provider: TREASURE GREGORY Report Released Date/Time: Dec 12, 2021 09:22 AM Reporting Lab: [address] [phone] Performing Lab: [place] [phone] [facility] Vital Signs Combined list of inpatient and outpatient Vital Signs from Department of Defense and Veterans Affairs, ranging from 12 months to all on record, depending upon the facility. Vital Sign Value Date Comments Source SYSTOLIC BLOOD PRESSURE 149 12/11/2023 08:47:00 [facility] DIASTOLIC BLOOD PRESSURE 80 12/11/2023 08:47:00 [facility] WEIGHT 150.1 12/11/2023 08:47:00 [facility] BMI 26 kg/m2 12/11/2023 08:47:00 [facility] PAIN 0 12/11/2023 08:47:00 [facility] TEMPERATURE 96.2 12/11/2023 08:47:00 [facility] PULSE 77 12/11/2023 08:47:00 [facility] RESPIRATION 16 12/11/2023 08:47:00 [facility] Encounters Combined list of: 1) Encounters from Department of Veterans Affairs facilities going backup to the last 18 months, not all [place] inpatient encounters are included; 2) Encounters from the Department of Defense facilities going backup to 280 months. 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 Social History Type Response Date Comment Sourc e Tobacco smoking status MEIS VA-TOBACCO NEVER USED 12/11/2023 [facility] History of tobacco use VA-TOBACCO QUIT 1 5 YRS OR MORE 12/12/2022 [facility] History of tobacco use VA-TOBACCO FORMER USER 12/12/2021 [facility] History of tobacco use VA-TOBACCO FORMER USER 12/12/2020 [facility] History of tobacco use VA-TOBACCO FORMER USER 05/11/2018 [facility] Plan of Care List of future care activities from Department of Veterans Affairs facilities. Additional future care activities may be listed in the Assessment and Plan section. Date/Time Care Activity Care Activity Detail Facili ty 12/02/2024 AMBULATORY - NONE AMBULATORY - NONE [facility]
[2024-11-30 09:10] VITALS: BP 164/66; PULSE 61; O2SAT 99; BMI 25.7
--- OUTSIDE RECORDS SUMMARY | 2024-11-30 09:11 | XMS_ITS | Clinical Summary ---
Author Organization Adly tem Address [id number] [address] [place] [address] Care Team Providers Care Welfare Worker Name Role Phone Scott Tai MD Primary Care Provider [phone] Allergies No known active allergies Medications acetaminophen-co [...] 12/19/2024 Medical Devices Not on file Insurance [facility] MEDICARE Care Teams Welfare Worker Relationship Specialty Start Date End Date Scott Tai MD [facility], [address] [address] PCP - General Internal Medicine 11/23/19
--- OUTSIDE RECORDS SUMMARY | 2024-11-30 09:11 | XMS_ITS | Clinical Summary ---
Author Organization [facility] Address [address] [place] [address] Care Team Providers Care Sous Chef Kitchen Manager Name Role Phone Scott Tai MD Primary Care Provider [phone] Allergies No known active allergies Medications aspirin [...] tablet 400 mg in the morning. Active sucralfate (Carafate) 1 gram tablet Take 1 g by mouth before breakfast, before lunch, before evening meal, and at bedtime. Active spironolactone (Aldactone) 25 mg tabletIndication s:Chronic systolic congestive heart failure (CMS/HCC) Take 1 tablet (25 mg) by mouth in the morning. 90 tablet 3 5 026 Active dapagliflozin propanediol (Farxiga) 10 mgIndications:Be nign hypertensive heart disease with heart failure (CMS/HCC) Take 1 tablet (10 mg) by mouth once daily as directed. 90 tablet 3 5 026 Active dapagliflozin propanediol (Farxiga) 10 mgIndications:Be nign hypertensive heart disease with heart failure (CMS/HCC) Take 1 tablet (10 mg) by mouth once daily as directed. 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); History of coronary artery bypass surgery; Chronic systolic congestive heart failure (CMS/HCC); Primary hypertension; Mixed hyperlipidemia 09/02/2024 Telephone [facility] [address] [place] [facility] [place] [address] Bety Mckay MA from Last 3 Months [...] of 2) 07/16/2018 019, 10/28/2012 COVID-19 Vaccine ( - 2023-2 5 season) 2023 11/20/2020, 10/30/2020 Influenza Vaccine (#1) 2024 Adult Tetanus 10/14/2027 10/13/2017 HIB Vaccines [...] patient's age to complete this topic Insurance [address] [phone] [employer] MEDICARE ADVANTAGE Care Teams Sous Chef Kitchen Manager Relationship Specialty Start Date End Date Scott Tai MD PCP - General Internal Medicine 12/09/22
--- OUTSIDE RECORDS SUMMARY | 2024-11-30 09:11 | XMS_ITS | Encounter Summary ---
Author Organization [facility] Address [address] [place] [address] Care Team Providers Care Drone Pilot Name Role Phone Scott Tai MD Primary Care Provider [phone] Reason for Visit * Reason Comments Med Change Request Encounter Details Date Type Department Care Team (Late st Contact Info) Description 04/17/2023 Refill [facility] at [facility] [address] [place] [address] Юлия Orona, SOCIAL SERVICES [address] [place] [phone] Benign hypertensive heart disease with heart failure [...] (CMS/HCC) documented in this encounter Care Teams Drone Pilot Relationship Specialty Start Date End Date Scott Tai MD PCP - General Internal Medicine 12/09/22 documented as of this encounter
--- OUTSIDE RECORDS SUMMARY | 2024-11-30 09:11 | XMS_ITS | Encounter Summary ---
Author Organization [facility] Address [address] [place] [address] Care Team Providers Care Supervisor Painting Name Role Phone Scott Tai MD Primary Care Provider Reason for Visit * Reason Comments Med Refill Encounter Details Date Type Department Care Team (Late st Contact Info) Description 11/19/2022 Refill [facility] at [facility] [address] [place] [address] Юлия Orona, OCCUPATIONAL THERAPY ASSISTANT [address] [place] [phone] Benign hypertensive heart disease with heart failure [...] documented in this encounter Care Teams Supervisor Painting Relationship Specialty Start Date End Date Scott Tai MD PCP - General Internal Medicine 12/09/22 documented as of this encounter
--- NOTE | 2024-11-30 09:12 | XR_ITS ---
The [address] [address] Patient Name: LIDA BOB MRN: [id number] date: 1940 Sex: M Assigned Patient Location: ED.MAIN Current Patient Location: ED.MAIN Accession/Order Number: [id number] Exam Date: 11/30/2024 10:11 Report Date: 11/30/2024 10:11 At the request of: YVETTE POLK MD Procedure: XR chest 1V Single view chest: CLINICAL HISTORY: dizzy COMPARISON: Chest 08/31/2024 FINDINGS: Post CABG changes are noted. Heart is normal in size. No lung consolidation pneumothorax pleural effusion or free air. XR/XR chest 1V IMPRESSION: NEGATIVE CHEST. Impression dictated by: Layton Ayala Jr., D.O. 11/30/2024 10:11 AM Dictation Location: [place] [address] Electronically authenticated by: [id number] Y Date: 11/30/2024 10:11
--- NOTE | 2024-11-30 09:12 | ECG_ITS ---
The [facility] Test Date: 2024-11-30 Pat Name: LIDA BOB Department: Room: - Gender: Male Dietitian Therapeutic: : 1940 Requested By: [id number] Order Number: [id number] Vashti MD: EARL GUZMAN M.D. Measurements Intervals [place] Rate: 57 P: 8 CO: 220 QRS: 127 QRSD: 90 T: 90 QT: 374 QTc: 368 Interpretive Statements 1100 Sinus rhythm 2231 First degree AV block 3132 Anterior myocardial infarction, probably recent 5120 Possible right ventricular hypertrophy 9150 abnormal ECG Compared to ECG 08/31/2024 13:45:26 First degree AV block now present Indeterminate axis no longer present Myocardial infarct finding still present Electronically Signed On 12-01-2024 19:22:57 EDT by EARL GUZMAN M.D.
--- NOTE | 2024-11-30 09:12 | CT_ITS ---
The [address] [address] Patient Name: LIDA BOB MRN: [id number] date: 1940 Sex: M Assigned Patient Location: ED.MAIN Current Patient Location: ED.MAIN Accession/Order Number: [id number] Exam Date: 11/30/2024 10:11 Report Date: 11/30/2024 10:13 At the request of: YVETTE POLK MD Procedure: CT head/brain wo con CT BRAIN WITHOUT CONTRAST: CLINICAL HISTORY: dizzy COMPARISON: None TECHNIQUE: Contiguous axial unenhanced images were obtained through the brain. This CT exam was performed using one or more following dose reduction techniques: Automated exposure control, adjustment of the mA and/or kV according to patient size, or use of iterative reconstruction technique. FINDINGS: There is no evidence of midline shift, intra or extra-axial fluid collection, hemorrhage or CT evidence of stroke. Cortical atrophy with chronic microvascular ischemic changes. 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 Posterior fossa appears unremarkable. Visualized intraorbital contents demonstrate no acute findings. Visualized paranasal sinuses are clear. The surrounding soft tissues are normal. CT/CT head/brain wo con IMPRESSION: NO ACUTE INTRACRANIAL ABNORMALITY. Impression dictated by: Layton Ayala Jr., D.O. 11/30/2024 10:13 AM Dictation Location: [place] [address] Electronically authenticated by: [id number] Y Date: 11/30/2024 10:13
--- NOTE | 2024-11-30 09:13 | ED.GENADUL1 ---
HPI HPI - General Adult General Chief complaint: Dizziness Stated complaint: WEAKNESS Time Seen by Provider: 11/30/24 09:08 History of Present Illness HPI narrative: 84-year-old male presents for dizziness. He states it all started this morning and he felt like the room was spinning. It came on abruptly. No localized weakness and he does not have a headache or any pain. No palpitations or shortness of breath or chest pain. He did not have syncope or presyncope. He states if he lays still it does not affect him but if he moves he gets vertigo. Related Data Home Medications ?Medication ?Instructions ?Recorded ?Confirmed aspirin 81 mg tablet,delayed 81 mg PO DAILY 10/20/22 11/30/24 release (Adult Low Dose Aspirin) atorvastatin 40 mg tablet 40 mg PO BEDTIME 10/20/22 11/30/24 clopidogrel 75 mg tablet 75 mg PO DAILY 10/20/22 11/30/24 isosorbide mononitrate 30 mg 30 mg PO DAILY 10/20/22 11/30/24 tablet,extended release 24 hr nitroglycerin 0.4 mg sublingual 0.4 mg sublingual Q5M PRN chest 10/20/22 11/30/24 tablet pain carvedilol 6.25 mg tablet 6.25 mg PO Q12H 07/01/24 11/30/24 magnesium oxide 420 mg tablet 840 mg PO DAILY 07/01/24 11/30/24 pantoprazole 40 mg tablet,delayed 40 mg PO DAILY 11/30/24 11/30/24 release spironolactone 25 mg tablet 25 mg PO DAILY 11/30/24 11/30/24 Previous Rx's ?Medication ?Instructions ?Recorded lisinopril 20 mg tablet 20 mg PO DAILY #30 tabs 05/23/23 meclizine 25 mg tablet 25 mg PO TID PRN dizziness #20 tabs 11/30/24 Allergies Allergy/AdvReac Type Severity Reaction Status Date / Time No Known Drug Allergies Allergy Verified 11/30/24 09:20 Opioid HPI Opioid Management Most Recent Opioid Data: Last Pain Scale 7 05/22/23, 21:06 Review of Systems ROS Narrative A ten point review of systems is negative except as noted above. [facility] Medical History (Updated 11/30/24 @ 13:38 by Tang Ware MD) Acute renal disease ?N28.9 - Disorder of kidney and ureter, unspecified (ICD-10) Acute hypotension ?I95.9 - Hypotension, unspecified (ICD-10) Atypical chest pain ?R07.89 - Other chest pain (ICD-10) Myocardial infarct ?I21.9 - Acute myocardial infarction, unspecified (ICD-10) Surgical History (Updated 05/22/23 @ 23:36 by Tiffany Bah) S/P triple vessel bypass ?Z95.1 - Presence of aortocoronary bypass graft (ICD-10) Social History Smoking status: Never smoker Highest level of school completed/degree received: 11th grade Little interest or pleasure in doing things: not at all Feeling down, depressed, or hopeless: not at all Exam Narrative Exam Narrative: Nurses note and vital signs reviewed and patient is not hypoxic. General: The patient appears well and in no apparent distress. Patient is resting comfortably on cart. Skin: Warm, dry, no pallor noted. There is no rash noted. Head: Normocephalic, atraumatic Eye: Normal conjunctiva, no drainage, EOMI. PERRL Ears, Nose, Mouth, and Throat: oral mucosa is moist. Nares patent. Cardiovascular: Regular Rate and Rhythm Respiratory: Patient is in no distress, no accessory muscle use, lungs are clear to auscultation, no wheezing, rales or rhonchi Back: non-tender GI: Soft and nontender Musculoskeletal: The patient has no evidence of calf tenderness, no pitting edema, symmetrical pulses noted bilaterally Neurological: A&O, normal speech; upper and lower extremity strength 5 out of 5 and symmetric. No facial droop. Psychiatric: Cooperative Constitutional Vital Signs, click to edit/add: Last Vital Signs Pulse 60 11/30/24 12:37 Resp 16 11/30/24 12:37 BP 112/62 11/30/24 12:37 Pulse Ox 100 11/30/24 12:37 O2 Del Method Room Air 11/30/24 09:10 Course Vital Signs Vital signs: Vital Signs Pulse Rate 61 11/30/24 09:10 Respiratory Rate 16 11/30/24 09:10 Blood Pressure 164/66 H 11/30/24 09:10 Pulse Oximetry 99 11/30/24 09:10 Oxygen Delivery Method Room Air 11/30/24 09:10 Pulse Rate 60 11/30/24 12:37 Respiratory Rate 16 11/30/24 12:37 Blood Pressure 112/62 11/30/24 12:37 Pulse Oximetry 100 11/30/24 12:37 Oxygen Delivery Method Room Air 11/30/24 09:10 Medical Decision Making MDM Narrative Medical decision making narrative: The patient's workup including CT of the brain is negative. He was given oral Antivert and felt somewhat improved and then IV Valium and feels much better now. He is able to be discharged home and was ambulatory prior to discharge. The patient and his family are comfortable taking him home. Follow-up with his PCP but return to emergency department if symptoms worsen. I do not at this point suspect a stroke. Treatment diagnosis and follow-up were discussed thoroughly. Differential Diagnosis Differential Diagnosis: Vertigo, labyrinthitis, CVA, anemia, cardiac dysrhythmia Lab Data Lab results reviewed: Yes I reviewed the patient's lab results Labs: Lab Results 11/30/24 Range/Units 09:27 WBC 7.5 (4.0-11.0) 10^3/uL RBC 4.83 (4.70-6.10) 10^6/uL Hgb 9.6 L (14.0-18.0) g/dL Hct 32.6 L (42.0-54.0) % MCV 67.5 L (80.0-94.0) fL MCH 19.9 L (25.9-34.0) pg MCHC 29.4 L (29.9-35.2) g/dL RDW 19.5 H (11.0-15.0) % Plt Count 262 (150-450) 10^3/uL MPV 9.4 L (9.5-13.5) fL Neut % (Auto) 70.6 (43.0-75.0) % Lymph % (Auto) 17.3 L (20.5-60.0) % [place] % (Auto) 9.9 (1.7-12.0) % Eos % (Auto) 1.5 (0.9-7.0) % Baso % (Auto) 0.7 (0.2-2.0) % Neut # (Auto) 5.3 (1.4-6.5) 10^3/uL Lymph # (Auto) 1.3 (1.2-3.8) 10^3/uL [place] # (Auto) 0.7 (0.3-0.8) 10^3/uL Eos # (Auto) 0.1 (0.0-0.7) 10^3/uL Baso # (Auto) 0.1 (0.0-0.1) 10^3/uL Abs Immat Gran (auto) 0.00 (0.00-0.03) 10^3/uL Imm/Tot Granulo (auto) 0.0 (0.0-0.5) % Sodium 136 (136-145) mmol/L Potassium 4.2 (3.5-5.1) mmol/L Chloride 105 (98-107) mmol/L Carbon Dioxide 27.0 (21.0-32.0) mmol/L Anion Gap 8.2 BUN 28.0 H (7.0-18.0) mg/dL Creatinine 1.06 (0.70-1.30) mg/dL Est GFR ( Amer) >60 (>=60 mL/min/1.73m^2) Est GFR (Non-Af Amer) >60 (>=60 mL/min/1.73m^2) BUN/Creatinine Ratio 26.4 Glucose 107 H (74-106) mg/dL Calcium 8.8 (8.5-10.1) mg/dL Troponin I High Sens 22.9 (4.0-76.1) pg/mL Imaging Data Chest x-ray: Radiologist's impression: ITS Impressions Chest X-Ray 11/30/24 09:12 IMPRESSION: NEGATIVE CHEST. Impression dictated by: Layton Ayala Jr., D.O. 11/30/2024 10:11 AM Dictation Location: [employer] Electronically authenticated by: [id number] Y Date: 11/30/2024 10:[address] 11/30/24 09:12 IMPRESSION: NO ACUTE INTRACRANIAL ABNORMALITY. Impression dictated by: Layton Ayala Jr., D.O. 11/30/2024 10:13 AM Dictation Location: [employer] Electronically authenticated by: [id number] Y Date: 11/30/2024 10:13 ECG Data Attestation: I personally reviewed and interpreted this ECG as follows: (EKG on my interpretation shows sinus rhythm with a rate of 57 and no acute change, first-degree AV block present) Discharge Plan Discharge Chief Complaint: Dizziness Clinical Impression: Vertigo Patient Disposition: Home, Self-Care Time of Disposition Decision: 13:38 Condition: Good Mode of Transportation: Private Vehicle Prescriptions / Home Meds: New meclizine 25 mg tablet 25 mg PO TID PRN (Reason: dizziness) Qty: 20 0RF No Action atorvastatin 40 mg tablet 40 mg PO BEDTIME clopidogrel 75 mg tablet 75 mg PO DAILY isosorbide mononitrate 30 mg tablet extended release 24 hr 30 mg PO DAILY nitroglycerin 0.4 mg tablet, sublingual 0.4 mg sublingual Q5M PRN (Reason: chest pain) aspirin [Adult Low Dose Aspirin] 81 mg tablet,delayed release (DR/EC) 81 mg PO DAILY lisinopril 20 mg Tablet 20 mg PO DAILY Qty: 30 11RF carvedilol 6.25 mg tablet 6.25 mg PO Q12H magnesium oxide 420 mg tablet 840 mg PO DAILY spironolactone 25 mg tablet 25 mg PO DAILY pantoprazole 40 mg tablet,delayed release (DR/EC) 40 mg PO DAILY Print Language: Mongolian Instructions: Vertigo (ED) Referrals: PHOENIX GONZALEZ [Primary Care Provider, Internal Medicine] - 1 week
--- OUTSIDE RECORDS SUMMARY | 2024-11-30 09:13 | XMS_ITS | CCD ---
Author Organization [facility] Care Team Providers Care Bobbin Disker Name Role Phone PHYSICIAN, DEFAULT Admitting Unavailable PHYSICIAN, DEFAULT Attending Unavailable SCOTT TAI Primary Care Unavailable VIDAL ODOM Attending Unavailable VIDAL ODOM Admitting Unavailable SCOTT TAI Primary Care Unavailable PADMA PRADO Referring Unavailable MS Procedure Practitioner UnavailBINDU Greenwood Surgeon Unavailable PAY, DR MORTON Admitting Unavailable CARLOS, DR GARIBAY Primary Care Unavailable PAY, DR MORTON Attending Unavailable PAY, DR MORTON Consulting Unavailable STACY RALPH Consulting Unavailable AHANDRES VIDAL Consulting Unavailable Pernell Sarmiento Consulting Unavailable DEBI, DR JASAKRAN Watters Consulting Unavailable CECI CADENA Attending Unavailable CECI CADENA Admitting Unavailable CARLOS, DR GARIBAY Primary Care Unavailable CECI CADENA Consulting Unavailable CARLOS, DR GARIBAY Primary Care Unavailable CECI CADENA Admitting Unavailable CECI CADENA Attending Unavailable STACY RALPH Consulting Unavailable JOHAN, DR ROUSE Consulting Unavailable Carlton Galindo Consulting Unavailable Driss Smith Unavailable Scott Tai MD Unavailable Scott Tai MD Primary Care Provider [phone] SCOTT TAI Attending Unavailable RONNIE OLVERA Attending Unavailable SCOTT TAI Attending Unavailable SCOTT TAI Attending Unavailable SCOTT TAI Attending Unavailable DEBBI MURCIA Attending Unavailable Nicole Ojeda Attending Unavailable Nicole Ojeda Admitting Unavailable Candi Clark Consulting Unavailable Candi Clark Consulting Unavailable Candi Clark Consulting Unavailable Candi Clark Consulting Unavailable MD Candi Clark Consulting Unavailab SCOTT Lugo Primary Care Physician Nicole Ojeda Admitting Unavailable Nicole Ojeda Attending Unavailable Candi Clark Consulting Unavailable Candi Clark Consulting Unavailable MD Candi Clark Consulting Unavailab le Candi Clark Consulting Unavailable Fernandes DELICIA, Ruma Unavailable Unavailable Fritz Deluca [facility]ending [facility]available [facility] Unavailable Jazmin White Attending Unavaila CANDI Mendoza Attending Unavailable EARL GUZMAN Attending Unavailable Allergies Allergy Classification Reported Allergen(s) Allergy Type Date of Onset Reaction(s) Facility (1 source) 80774,00 Drug allergy (disorder) 02-21-2010 [facility] Repository Medications Current Medications Medication Drug Class(es) Dates Sig (Normalized) Sig (Original) amylase 259361 unt / lipase 80953 unt / protease 437276 unt delayed release oral capsule (5 sources) Start: 10-02-2021 take 1 capsule by mouth every eight hours Creon [id number] UNIT 1 CAPSULE Orally THREE TIMES A DAY for 30 days Sep, Active take 75059-14555 [IU ] by mouth three times daily at mealtime pancrelipase, Rkw-Giim-Xujm, (Creon) 02925-40616 units capsule Take by mouth 3 (three) times a day with meals. 0 Active aspirin 81 mg delayed release oral tablet (16 sources) Platelet Aggregation Inhibitor, Nonsteroidal Anti-inflammatory Drug Start: 09-02-2024 aspirin 81 mg Oral EC Tab 81 mg = 1 tab(s), Oral, Daily, Please make sure that aspirin is always enteric coated. May resume on 09/03 if no bleeding, # 30 tab(s), Refills(s) 0 Start Date: 09/02/24 Status: Ordered Quantity: 30.0 Unit: tab(s) Repeat number: 1 atorvastatin 40 mg oral tablet (16 sources) HMG-CoA Reductase Inhibitor Start: 04-05-2024 take 1 tablet by mouth once daily at bedtime atorvastatin (Lipitor) 40 MG tablet Indications: Mixed hyperlipidemia TAKE 1 TABLET BY MOUTH EVERYDAY AT BEDTIME 100 tablet 3 04/05/2024 Active Start: 04-21-2023 take 1 tablet by antonio once daily at bedtime atorvastatin (Lipitor) 40 MG tablet Indications: Mixed hyperlipidemia (CMS/HCC) TAKE 1 TABLET BY MOUTH EVERYDAY AT BEDTIME 90 tablet 3 04/21/2023 Active take 1 tablet by antonio th every twenty-four hours Atorvastatin Calcium 40 MG 1 tablet Orally Once a day Active carvedilol 6.25 mg oral tablet (16 sources) alpha-Adrenergic Kary, beta-Adrenergic Kary Start: 05-30-2024 take 1 tablet by mouth once daily at mealtime carvedilol (Coreg) 6.25 MG tablet Indications: Chronic systolic CHF (congestive heart failure), NYHA class 2 (HCC) TAKE 1 TABLET BY MOUTH EVERY MORNING AND EVENING WITH MEALS 180 tablet 1 05/30/2024 Active Start: 12-24-2023 take 1 tablet by antonio [...] day Active clopidogrel 75 mg oral tablet (14 sources) P2Y12 Platelet Inhibitor Start: 05-30-2024 take 1 tablet by mouth once daily, then take [id number] tablet by mouth in the morning clopidogrel 75 mg Tab 75 mg = 1 tab(s), Oral, Daily, May resume on 09/05 have labs drawn in a.m. and call PCP for hemoglobin results and to confirm resuming plavix. Start Date: 08/31/24 Status: Ordered Repeat number: 1 Start: 07-20-2023 take 1 tablet by antonio th once daily clopidogrel (Plavix) 75 MG tablet Indications: Atherosclerosis of [place] coronary artery of [place] heart without angina pectoris (CMS/HCC) TAKE 1 TABLET BY MOUTH EVERY DAY FOR 100 DAYS 100 tablet 3 07/20/2023 Active clopidogrel (Jens vix) 75 MG tablet 1 (one) time each day at the same time. 0 Active esomeprazole 40 mg delayed release oral capsule (1 source) Proton Pump Inhibitor Start: 09-30-2024 End: 09-25-2025 take 1 capsule by mouth once daily Nexium 40 mg Cap-EC 40 mg, Oral, Daily, Pharmacy may substitue PPI covered by insurance company, X 90 day(s), # 90 cap(s), Refills(s) 3, Pharmacy: [facility]/pharmacy #[id number], 162, cm, 09/30/24 9:26:00 EDT, Height/Length Dosing, 67.2, kg, 09/30/24 9:26:00 EDT, Weight Dosing Start Date: 09/30/24 Stop Date: 09/25/25 Status: Ordered Quantity: 90.0 Unit: cap(s) Repeat number: 4 Hepatic panel, CBC (2 sources) Start: 09-02-2024 Hepatic panel, CBC Hepatic panel, [...] mononitrate 30 mg extended release oral tablet (16 sources) Nitrate Vasodilator Start: 05-30-2024 take 1 tablet by mouth once daily isosorbide mononitrate ER (Imdur) 30 MG 24 hr tablet Indications: Chronic systolic CHF (congestive heart failure), NYHA class 2 (HCC) TAKE 1 TABLET BY MOUTH EVERY DAY 100 tablet 3 05/30/2024 Active Start: 06-09-2023 take 1 tablet by antonio [...] 0 Active lisinopril 20 mg oral tablet (18 sources) Angiotensin Converting Enzyme Inhibitor Start: 12-12-2023 [...] tablet Orally Once a day Active Magnesium (12 sources) take 1 capsule by mo uth once daily Magnesium 400 MG capsule Take 1 capsule by mouth 1 (one) time each day. Active take 1 capsule by mouth once zheng ly Magnesium 400 MG capsule Take 1 capsule by mouth 1 (one) time each day. 0 Active magnesium oxide 400 mg oral tablet (2 sources) Start: 08-31-2024 magnesium oxide 400 mg Tab 800 mg = 2 tab(s), Oral, Refills(s) 0 Start Date: 08/31/24 Status: Ordered Repeat number: 1 methylPREDNISolone (2 sources) Corticosteroid Start: 05-27-2023 End: 06-03-2023 methylPREDNISolone (Medrol Dospak) 4 MG tablets Indications: Right cervical radiculopathy Follow schedule on package instructions 21 tablet 0 05/27/2023 06/03/2023 Active Multiple Vitamins-Minerals (PRESERVISION AREDS 2 PO) (12 sources) take 1 tablet by mouth in the morning Multiple Vitamins-Minerals (PRESERVISION AREDS 2 PO) Take 1 tablet by mouth in the morning. Active take 1 tablet by mouth in the mo rning Multiple Vitamins-Minerals (PRESERVISION AREDS 2 PO) Take 1 tablet by mouth in the morning. 0 Active nitroglycerin 0.4 mg sublingual tablet (14 sources) Nitrate Vasodilator Start: 11-13-2021 nitroglycerin (Nitrostat) 0.4 MG SL tablet 11/13/2021 Active pantoprazole 40 mg delayed release oral tablet (9 sources) Proton Pump Inhibitor Start: 09-02-2024 take 1 tablet by mouth twice daily Pantoprazole [address] Tab 40 mg = 1 tab(s), Oral, BID, # 60 tab(s), Refills(s) 0, Pharmacy: [facility]/pharmacy #[id number], 162.6, cm, 08/31/24 22:50:00 [...] 1 tablet Orally Active Stool Hpylori antigen (2 sources) Start: 09-02-2024 Stool Hpylori antigen Stool Hpylori antigen, Please send stool sample cup and depressor for collection and to drop off at hospital, Print Requisition, Supply Start Date: 09/02/24 Status: Ordered Repeat number: 1 sucralfate 1000 mg oral tablet (2 sources) Aluminum Complex Start: 09-02-2024 End: 10-02-2024 take 1 tablet by mouth four times daily for constipation Carafate 1 gram Tab 1 gm = 1 tab(s), Oral, QID, Monitor for constipation, X 30 day(s), # 120 tab(s), Refills(s) 0, Pharmacy: [facility]/pharmacy #[id number], 162.6, cm, 08/31/24 22:50:00 [...] Classification Problem Date Documented Da te Episodic/Chronic Acute posthemorrhagic anemia (9 sources) Acute posthemorrhagic anemia; Translations: [Acute posthemorrhagic anemia] Onset: 5 09-29-2024 Episodic Administrative/social admission (2 sources) Patient encounter status; Translations: [Other specified counseling] 01-13-2024 Episodic Anxiety disorders (1 source) Generalized anxiety disorder Onset: 3 09-29-2024 Chronic Attention-deficit, conduct, and disruptive behavior disorders (1 source) Attention deficit hyperactivity disorder Onset: 4 09-29-2024 Chronic Cardiac dysrhythmias (15 sources) Cardiac arrhythmia; Translations: [Cardiac arrhythmia, unspecified] Onset: 3 10-23-2022 Chronic Cardiac dysrhythmias (1 source) Bradycardia, unspecified; Translations: [BRADYCARDIA UNSPECIFIED] Onset: 2 Episodic Cataract (14 sources) Nuclear sclerosis; Translations: [Age-related nuclear cataract, bilateral] Onset: 3 10-23-2022 Chronic Chronic kidney disease (20 sources) Chronic kidney disease stage 3A ; Translations: [Stage 3a chronic kidney disease (HCC)] Onset: 3 10-23-2022 Chronic Chronic obstructive pulmonary disease and bronchiectasis (1 source) Chronic obstructive lung disease Onset: 4 09-29-2024 Chronic Conduction disorders (1 source) Left bundle branch block Onset: 5 09-29-2024 Chronic Congestive heart failure; nonhypertensive (20 sources) Chronic systolic heart failure; Translations: [Chronic systolic (congestive) heart failure] Onset: 3 10-23-2022 Chronic Coronary atherosclerosis and other heart disease (20 sources) Old myocardial infarction; Translations: [Atherosclerotic heart disease of [place] coronary artery without angina pectoris] Onset: 1 Resolved: 5 05-11-2023 Chronic Coronary atherosclerosis and other heart disease (4 sources) Presence of aortocoronary bypass graft; Translations: [Aortocoronary bypass graft present] Onset: 2 09-29-2024 Episodic Deficiency and other anemia (2 sources) Anemia; Translations: [Anemia, unspecified] Onset: 5 Episodic Diabetes mellitus with complications (1 source) Chronic kidney disease due to type 2 diabetes mellitus Onset: 4 09-29-2024 Chronic Disorders of lipid metabolism (20 sources) Hyperlipidemia; Translations: [Hyperlipidemia, unspecified] Onset: 9 10-23-2022 Chronic Diverticulosis and diverticulitis (17 sources) Diverticulosis of colon; Translations: [Diverticulosis of large intestine without perforation or abscess without bleeding] Onset: 3 10-23-2022 Chronic Esophageal disorders (2 sources) Gastroesophageal reflux disease without esophagitis; Translations: [Gastro-esophageal reflux disease without esophagitis] Onset: 4 Chronic Essential hypertension (20 sources) Essential (primary) hypertension; Translations: [Benign essential hypertension] Onset: 2 Resolved: 3 Chronic Gastrointestinal hemorrhage (10 sources) Gastrointestinal hemorrhage, unspecified; Translations: [Melena] Onset: 5 Episodic Heart valve disorders (20 sources) Mitral valve regurgitation; Translations: [Nonrheumatic mitral (valve) insufficiency] Onset: 3 10-23-2022 Chronic Hyperplasia of prostate (17 sources) Benign prostatic hyperplasia; Translations: [Benign prostatic hyperplasia with lower urinary tract symptoms] Onset: 3 10-23-2022 Chronic Hypertension with complications and secondary hypertension (4 sources) Secondary hypertension; Translations: [Secondary hypertension, unspecified] Onset: 4 05-04-2024 Chronic Mood disorders (1 source) Mixed bipolar affective disorder, mild 09-29-2024 Chronic Other aftercare (1 source) jail (current) use of aspirin; Translations: [[facility] CURRENT USE OF ASPIRIN] Onset: 2 Episodic Other aftercare (1 source) Other meterman (current) drug therapy; Translations: [OTH RECREATION ASSISTANT CURRENT DRUG THERAPY] Onset: 2 Episodic Other aftercare (1 source) computer terminal operator (current) use of antithrombotics/antipl atelets; Translations: [RECREATION ASSISTANT ANTITHROMBOT/ANTIPLATL ETS] Onset: 2 Episodic Other aftercare (1 source) Long-term current use of drug therapy; Translations: [Other meterman (current) drug therapy] Onset: 5 Episodic Other and ill-defined heart disease (16 sources) Bilateral enlargement of atria; Translations: [Cardiomegaly] Onset: 3 10-23-2022 Chronic Other circulatory disease (1 source) Orthostatic hypotension 09-29-2024 Episodic Other diseases of kidney and ureters (1 source) Acute nephropathy 09-29-2024 Episodic Other ear and sense organ disorders (14 sources) Sensorineural hearing loss, bilateral; Translations: [Sensorineural hearing loss, bilateral] Onset: 3 10-23-2022 Chronic Other ear and sense organ disorders (13 sources) Bilateral hearing loss; Translations: [Unspecified hearing loss, bilateral] Onset: 3 03-16-2023 Chronic Other gastrointestinal disorders (1 source) Dark stools 09-29-2024 Episodic Other hereditary and degenerative nervous system conditions (1 source) Dyskinesia 09-29-2024 Chronic Other liver diseases (2 sources) Liver disease, unspecified; Translations: [LIVER DISEASE UNSPECIFIED] Onset: 2 Chronic Other liver diseases (3 sources) Lesion of liver; Translations: [Liver disease, unspecified] 09-29-2024 Chronic Other lower respiratory disease (1 source) Fibrosis of lung Onset: 4 09-29-2024 Chronic Other male genital disorders (12 sources) Secondary erectile dysfunction; Translations: [Male erectile dysfunction, unspecified] Onset: 3 10-23-2022 Chronic Other nervous system disorders (15 sources) Carpal tunnel syndrome of right wrist; Translations: [Carpal tunnel syndrome, right upper limb] Onset: 3 10-23-2022 Chronic Other nutritional; endocrine; and metabolic disorders (1 source) Hypocalcemia; Translations: [Hypocalcemia] Onset: 5 Chronic Other upper respiratory disease (1 source) Congestion of nasal sinus 09-29-2024 Episodic Pancreatic disorders (not diabetes) (20 sources) Recurrent pancreatitis; Translations: [Other chronic pancreatitis] Onset: 3 Resolved: 3 10-23-2022 Chronic Kimberlee-; endo-; and myocarditis; cardiomyopathy (except that caused by tuberculosis or sexually transmitted disease) (1 source) Cardiomyopathy Onset: 5 09-29-2024 Chronic Residual codes; unclassified (1 source) Obstructive sleep apnea syndrome 09-29-2024 Chronic Residual codes; unclassified (1 source) Acquired absence of other specified parts of digestive tract; Translations: [ACQ ABSENCE OTH PART DIGESTV TRACT] Onset: 2 Episodic Retinal detachments; defects; vascular occlusion; and retinopathy (16 sources) Nonexudative age-related macular degeneration; Translations: [Nonexudative age-related macular degeneration, bilateral, intermediate dry stage] Onset: 3 10-23-2022 Chronic Spondylosis; intervertebral disc disorders; other back problems (1 source) Cervical spondylosis without myelopathy Onset: 9 09-29-2024 Chronic Spondylosis; intervertebral disc disorders; other back problems (2 sources) Right cervical root neuropathy; Translations: [Radiculopathy, cervical region] 05-27-2023 Episodic Thyroid disorders (1 source) Hypothyroidism Onset: 9 09-29-2024 Chronic Past or Other Problems Problem Classification Problem Date Documented Date Episodic/Chronic Abdominal pain (18 sources) Epigastric pain; Translations: [Unspecified abdominal pain] Onset: 07-26-2021 Episodic Allergic reactions (1 source) Contact dermatitis Onset: 03-22-2004 09-29-2024 Episodic Biliary tract disease (1 source) Calculus of gallbladder with cholecystitis Onset: 12-16-2019 09-29-2024 Episodic Blindness and vision defects (12 sources) Bilateral regular astigmatism; Translations: [Regular astigmatism, bilateral] Onset: 03-16-2023 03-16-2023 Episodic Genitourinary symptoms and ill-defined conditions (12 sources) Nocturia; Translations: [Nocturia] Onset: 10-23-2022 10-23-2022 Episodic Lymphadenitis (1 source) Generalized enlarged lymph nodes Onset: 05-06-2024 09-29-2024 Episodic Malaise and fatigue (13 sources) Fatigue; Translations: [Other fatigue] Onset: 08-21-2022 Resolved: 09-29-2024 01-08-2023 Episodic Mycoses (1 source) Candidal paronychia Onset: 09-04-2023 09-29-2024 Episodic Nonspecific chest pain (13 sources) Chest pain; Translations: [Chest pain, unspecified] Onset: 08-21-2022 Resolved: 09-29-2024 01-08-2023 Episodic Other circulatory disease (12 sources) H/O: hypertension; Translations: [Personal history of other diseases of the circulatory system] Onset: 08-21-2022 Resolved: 01-08-2023 01-08-2023 Episodic Other connective tissue disease (1 source) Full thickness rotator cuff tear Onset: 06-14-2018 09-29-2024 Episodic Other disorders of stomach and duodenum (1 source) Indigestion Onset: 07-26-2021 09-29-2024 Episodic Other lower respiratory disease (1 source) Shortness of breath; Translations: [SHORTNESS OF BREATH] Onset: 01-21-2021 Episodic Other lower respiratory disease (13 sources) Dyspnea; Translations: [Dyspnea, unspecified] Onset: 08-21-2022 10-23-2022 Episodic Other lower respiratory disease (1 source) Hypoxia Onset: 05-28-2020 09-29-2024 Episodic Other non-epithelial cancer of skin (20 sources) Basal cell carcinoma of back; Translations: [Basal cell carcinoma of skin of other part of trunk] Onset: 10-23-2022 10-23-2022 Episodic Other nutritional; endocrine; and metabolic disorders (12 sources) Body mass index 25-29 - overweight; Translations: [Overweight] Onset: 10-23-2022 10-23-2022 Episodic Other screening for suspected conditions (not mental disorders or infectious disease) (20 sources) Other specified abnormal findings of blood chemistry; Translations: [Raised prostate specific antigen] Onset: 07-30-2021 Resolved: 01-08-2023 10-23-2022 Episodic Other skin disorders (1 source) Inflammatory dermatosis Onset: 02-19-2022 09-29-2024 Episodic Other upper respiratory infections (1 source) Acute pharyngitis Onset: 04-19-2024 09-29-2024 Episodic Pancreatic disorders (not diabetes) (14 sources) Pancreatic insufficiency; Translations: [Other specified diseases of pancreas] Onset: 10-23-2022 10-23-2022 Episodic Screening and history of mental health and substance abuse codes (2 sources) Personal history of nicotine dependence; Translations: [Ex-cigarette smoker] Onset: 05-08-2021 09-29-2024 Episodic Results Test Name Value Interpretation Reference Range Facility 36on 10-07-2024 36 Regarding lab result s from 10/05/2024: MD Bev Hayes MA Renal function is stable. Continue same and follow-up in 6 months with echo. Patient informed. [facility] ALL BASIC METABOLIC PANELon 10-05-2024 Anion gap [Moles/Vol] 14.5 mmol/L [facility] Calcium [Mass/Vol] 9 mg/dL 8.5 - 10. 1 mg/dL [facility] Chloride [Moles/Vol] 104 mmol/L 98 - 107 mmol/L [facility] CO2 [Moles/Vol] 25.7 mmol/L 21.0 - 32.0 mmol/L [facility] Creatinine [Mass/Vol] 1.19 mg/dL 0.70 - 1.30 mg/dL [facility] GFR/1.73 sq M.predicted CKD-EPI (S/P/Bld) [Vol rate/Area] >60 >=60 mL/min/1.73 m 2 [facility] Glucose [Mass/Vol] 113 mg/dL High 74 - 106 mg/dL [facility] Interpretation and review of laboratory results Abnormal [facility] Potassium [Moles/Vol] 4.2 mmol/L 3.5 - 5.1 mmol/L [facility] Sodium [Moles/Vol] 140 mmol/L 136 - 145 mmol/L [facility] TBH EGFR-NON AF FRENCH 59 Low >=60 mL/min/1.73 m 2 [facility] Urea nitrogen [Mass/Vol] 30 mg/dL High 7.0 - 18.0 mg/dL [facility] Urea nitrogen/Creatinine [Mass ratio] 25.2 mg/mg [facility] Gastroenterology Office/Clin ic Noteon 10-05-2024 Gastroenterology Office/Clinic Note Gastroenterology Office/Clinic Note Chief Complaint follow up to EGD HPI Staff Established patient is a(n) year old male who presents today for a follow up to inpatient EGD on 09/01/24. Need to schedule repeat EGD in 11/2024. Any blood thinners? No, still takes baby aspirin. Any GLP-1 agonists? no. Dr. White consulted 09/01/24: Impression and Plan Ready this is an [...] please notify me and consult general surgery Laboratory Results CBC CMP Basophil Absolute: 0 E9/L (09/01/24) A/G Ratio: 1.9 (09/02/24) Basophil Auto: 0.6 % (09/01/24) AGAP: 9 mEq/L (09/01/24) Eos Absolute: 0.1 E9/L (09/01/24) Albumin Lvl: 3.6 gm/dL (09/02/24) Eos Auto: 0.8 % (09/01/24) Alk Phos: 46 Int._Unit/L (09/02/24) Hct: 28.8 % Low (09/02/24) ALT: 10 Int._Unit/L (09/02/24) HGB: 9.7 gm/dL Low (09/02/24) AST: 14 Int._Unit/L (09/02/24) Lymph Absolute: 1.4 E9/L (09/01/24) Bili Total: 1.6 mg/dL High (09/02/24) Lymph Auto: 19.3 % (09/01/24) BUN: 21 mg/dL (09/01/24) MCH: 29 pg (09/01/24) BUN/Creat Ratio: 26 High (09/01/24) MCHC: 33.8 gm/dL (09/01/24) Calcium Lvl: 7.8 mg/dL Low (09/01/24) MCV: 85.6 fL (09/01/24) Chloride: 111 mmol/L (09/01/24) Hendry Absolute: 0.6 E9/L (09/01/24) CO2: 22 mmol/L (09/01/24) Hendry Auto: 8.6 % (09/01/24) Creatinine: 0.8 mg/dL (09/01/24) MPV: 8 fL (09/01/24) Globulin: 1.9 gm/dL (09/02/24) Neutro Absolute: 5.2 E9/L (09/01/24) Glucose Lvl: 76 mg/dL (09/01/24) Neutro Auto: 70.7 % (09/01/24) Potassium Lvl: 4 mmol/L (09/01/24) Platelet: 189 E9/L (09/01/24) Sodium Lvl: 138 mmol/L (09/01/24) RBC: 2.3 E12/L Low (09/01/24) Total Protein: 5.5 gm/dL Low (09/02/24) RDW: 16.7 % High (09/01/24) WBC: 7.3 E9/L (09/01/24) Liver Studies Ferritin Lvl: 11 ng/mL Low (09/02/24) Iron: 21 mcg/dL Low (09/02/24) TIBC: 395 mcg/dL (09/02/24) Stool Studies Occult Bld Stl: Positive1 Abnormal (09/01/24) H pylori Stool Ag: Negative (09/01/24) History of Present Illness Reviewed HPI collected by staff Review of Systems PHQ Score Initial Depression Screen Score: 0 SCORE All systems reviewed, negative; Except for above Physical Exam Vitals & Measurements HR: 74(Peripheral) RR: 14 BP: 130/66 HT: 162 cm HT: 64 in WT: 67.2 kg WT: 148.15 lb BMI: 25.61 No acute distress Procedure EGD: Impression and Plan 1. Esophageal landmarks identified, [...] in 3 months to ensure esophagitis healing Assessment/Plan 1. Anemia (D64.9: Anemia, unspecified) PMHx of CAD status post CABG, on DAPT, who presented to the hospital from outside facility with dizziness, shortness of breath. He was noted to have acute anemia with hemoglobin down to 6.7. He also reported black tarry stools. He had orthostatic hypotension, otherwise hemodynamically stable this No EGD or colonoscopy in our system, he reports he had EGD and colonoscopy years ago, did not remember if he had any significant findings Seemed hemodynamically stable Last dose of Plavix was 08/31 Denies melena at this time Not currently taking any oral iron supplements EGD 08/2024: small hiatal hernia noted. LA grade B esophagitis. Significant inflammation through the stomach with mild patchy erythema. Multiple clean-based superficial ulcers, Jake class III in the duodenal bulb and duodenal sweep. Large diverticulum in the duodenum at the ampulla origin - Recheck labs - Nexium daily prescribed - Schedule EGD in November to evaluate. Discussed risks such as bleeding, injury and perforation as well as benefits (more content not included)... Normal [facility] Comment on above: Result Comment: Elec tronically Signed By: Sue Cage MA\.br\Date and Time Signed: 09/30/24 09:58 EDT\.br\Electronically Co-Signed By: Cindy KABA, Jazmin Colby\.br\Date and Time Co-Signed: 10/05/24 14:07 EDT Ambulatory Visit Summaryon 0 09-30-2024 Ambulatory Visit Summary Ambulatory Visit Summary RADHA CABELLO :1940 Visit Date:09/30/2024 Ambulatory Visit Instructions Your Diagnosis Anemia Black tarry stools Gastroesophageal reflux disease without esophagitis Your Care Team Attending Physician - Cindy KABA, Jazmin Colby Primary Care Physician - SCOTT TAI MD This Is Your Medications List esomeprazole (Nexium 40 mg Cap-EC) Contact prescribing physician if questions or concerns Misc Prescription (Hepatic panel, CBC) Misc Prescription (Stool Hpylori antigen) aspirin (aspirin 81 mg Oral EC Tab) atorvastatin (atorvastatin 40 mg Tab) carvedilol (carvedilol 6.25 mg Tab) isosorbide mononitrate (isosorbide mononitrate 30 mg ER Tab) lisinopril (lisinopril 20 mg Tab) magnesium oxide (magnesium oxide 400 mg Tab) sucralfate (Carafate 1 gram Tab) [Image Removed: STOP]Stop taking these medications pantoprazole (Pantoprazole [address] Tab) Procedures Performed EGD - esophagogastroduodenoscopy (09/01/2024). Discharge Vitals Heart Rate (Peripheral) 74 Respiratory Rate 14 Blood Pressure 130/66 Height 162 cm Height 64 in Weight 67.2 kg Weight 148.15 lb BMI 25.61 What to do next You Need to Complete the Following CBC w/ Auto Diff, Blood, Routine collect, 09/30/24, Order for future visit, Lab Collect, Anemia, Not Required, Print Label By Order Location Comprehensive Metabolic Panel, Blood, Routine collect, 09/30/24, Order for future visit, Lab Collect, Anemia, Not Required, Print Label By Order Location Ferritin, Blood, Routine collect, 09/30/24, Order for future visit, Lab Collect, Anemia, Not Required, Print Label By Order Location Iron Level, Blood, Routine collect, 09/30/24, Order for future visit, Lab Collect, Anemia, Not Required, Print Label By Order Location TIBC Calculated, Blood, Routine collect, 09/30/24, Order for future visit, Lab Collect, Anemia, Not Required, Print Label By Order Location Medications What How Much When Instructions New esomeprazole (Nexium 40 mg Cap-EC) 40 Milligram By Mouth Every day Duration: 90 Days Refills: 3 Pharmacy may substitue PPI covered by insurance company Pickup at [facility]/pharmacy #[id number] Unchanged aspirin (aspirin 81 mg Oral EC Tab) 1 Tablets By Mouth Every day Please make sure that aspirin is always enteric coated. May resume on if no bleeding Contact prescribing physician if questions or concerns Unchanged atorvastatin (atorvastatin 40 mg Tab) 2 Tablets TAKE 1 TABLET BY MOUTH EVERYDAY AT BEDTIME Contact prescribing physician if questions or concerns Unchanged carvedilol (carvedilol 6.25 mg Tab) 1 Tablets 2 times a day TAKE 1 TABLET BY MOUTH EVERY MORNING AND EVENING WITH MEALS Contact prescribing physician if questions or concerns Unchanged isosorbide mononitrate (isosorbide mononitrate 30 mg ER Tab) TAKE 1 TABLET BY MOUTH EVERY DAY Contact prescribing physician if questions or concerns Unchanged lisinopril (lisinopril 20 mg Tab) 1 Tablets By Mouth Every day Hold for systolic blood pressure 110 or less Contact prescribing physician if questions or concerns Unchanged magnesium oxide (magnesium oxide 400 mg Tab) 2 Tablets By Mouth Contact prescribing physician if questions or concerns Unchanged Misc Prescription (Hepatic panel, CBC) 0 Have labs on Contact prescribing physician if questions or concerns Unchanged Misc Prescription (Stool Hpylori antigen) 0 Please send stool sample cup and depressor for collection and to drop off at hospital Contact prescribing physician if questions or concerns Unchanged sucralfate (Carafate 1 gram Tab) 1 Tablets By Mouth 4 times a day Duration: 30 Days Monitor for constipation Contact prescribing physician if questions or concerns Pharmacy Information [facility]/pharmacy #[id number]: [address], [place] [phone] What How Much When Comments Stop Taking pantoprazole (Pantoprazole [address] Tab) 1 Tablets By Mouth 2 times a day Allergies No Known Allergies Problems Ongoing - Any problem that you are currently receiving treatment for. Acute nephropathy Acute pharyngitis Acute posthemorrhagic anemia Anemia Angina, class III Aortic valve stenosis Aortocoronary bypass graft present Attention deficit hyperactivity disorder Basal cell carcinoma of back Benign prostatic hyperplasia Bilateral hearing loss Black tarry stools Calculus of gallbladder with cholecystitis Candidal paronychia Cardiac arrhythmia. Cardiomyopathy Carpal tunnel syndrome of right wrist Cervical spondylosis without myelopathy Chronic kidney disease due to type 2 diabetes mellitus Chronic kidney disease stage 3A. Chronic kidney disease stage 3B. Chronic obstructive pulmonary disease Chronic systolic heart failure Congestion of nasal sinus Contact dermatitis Coronary arteriosclerosis Coronary artery disease Diverticulosis of colon Dyskinesia Dyspnea Ex-cigarette smoker Fibrosis of lung (more content not included)... Normal [facility] ALL CBC WITH AUTO DIFFon BASOPHILS ABSOLUTE AUTO 0 [facility] Basophils/100 WBC (Bld) 0.4 % 0.2 - 2.0 % [facility] Eosinophils/100 WBC (Bld) 2.6 % 0.9 - 7.0 % [facility] Erythrocyte distribution width (RBC) [Ratio] 14.6 % 11.0 - 15.0 % [facility] Hematocrit (Bld) [Volume fraction] 27.2 % Low 42.0 - 54.0 % [facility] Hemoglobin (Bld) [Mass/Vol] 8.8 g/dL Low 14.0 - 18.0 g/dL [facility] IMMATURE GRANULOCYTES ABS AUTO 0.04 High [facility] Immature granulocytes/100 WBC (Bld) 0.4 % 0.0 - 0.5 % [facility] Interpretation and review of laboratory results Abnormal [facility] LYMPHOCYTES ABSOLUTE AUTO 1.6 [facility] Lymphocytes/100 WBC (Bld) 17.3 % Low 20.5 - 60.0 % [facility] MCH (RBC) [Entitic mass] 28.1 pg 25.9 - 34.0 pg [facility] MCHC (RBC) [Mass/Vol] 32.4 g/dL 29.9 - 35.2 g/dL [facility] MCV (RBC) [Entitic vol] 86.9 fL 80.0 - 94.0 fL [facility] MONOCYTES ABSOLUTE AUTO 1 High [facility] Monocytes/100 WBC (Bld) 10.4 % 1.7 - 12.0 % [facility] NEUTROPHILS ABSOLUTE AUTO 6.4 [facility] Neutrophils/100 WBC (Bld) 68.9 % 43.0 - 75.0 % [facility] Platelet mean volume (Bld) [Entitic vol] 10 fL 9.5 - 13.5 fL [facility] TBH EO # 0.2 [facility] Healthcare TB PLT 276 [facility] Healthcare TB RBC 3.13 Low [facility] TB WBC 9.3 [facility] Healthcare [facility] Healthcare Office Visiton 09-05-2024 Follow-up visit [id number] Radha Cabello 1940 M Date Provider Department Center 09/05/2024 EARL LAWSON CARD [facility] Family History Problem Relation Age of Onset Coronary artery disease Father Hypertension Father Family Status - Relation Status Age at Mother Father Level of Service:52114 MS OFFICE/OUTPATIENT ESTABLISHED MOD MDM 30 MIN [facility] Path. Reviewon 09-05-2024 Path Review Anemia with polychro masia. Monocytosis. Clinical correlation is indicated for etiology. Invalid Interpretation Code [facility] Comment on above: Performed By: #### 1 [id number] #### [facility] [address] [place] [address] H. pylori Stool Agon 025 H. pylori Ag IA Ql (Stl) Negative Invalid Interpretation Code Negative [facility] Comment on above: Result Comment: Perf ormed at: [facility] [address] [id number] PhD Rosmery Melissa Performed By: #### 1 [id number] #### [facility] [address] [place] [address] 36on 09-02-2024 36 Phone call from Rafael Mckay is requesting to speak with the Who is in office in regards to patient Radha Cabello. Per Nely patient was admitted to [facility] with a GI bleed. Nely would like to hold his Plavix for 72 hour and discharge the patient to home today. Nely would like a Cardiology's blessing to stop Plavix. Patient seen Helene back on 04/12. Please advise. [facility] CHEMISTRYOrdered By: SYSTEM SYSTEM on 09-02-2024 Cobalamin [...] Bilirubin [Mass/Vol] 1.6 mg/dL High 0.0 - 1.1 mg/dL Remisol Chem Bilirubin.direct [Mass/Vol] 0.3 mg/dL [...] - Rusty KABA, Nicole Consulting Physician - Candi Clark MD Reason for Your Visit sob with exertion, [...] care physician. This Is Your Medications List Misc Prescription (Hepatic panel, CBC) Misc Prescription (Stool [...] EDT With: Cindy KABA, Jazmin Colby Where: [facility] [address] [place], [place] [id number]- New Follow Up Appointments after Discharge Follow Up with Jazmin White When: 09/30/2024 09:30 AM EDT Where: [address], [address] [phone] Business (1) Follow Up with EARL GUZMAN When: 09/05/2024 09:45 AM EDT Comments: Appointment has already been scheduled - go to [facility] Follow Up with SCOTT TAI When: Within 1 to 2 days Comments: Call for followup appointment Where: [address] [place] [address]- Business (1) Medications What How Much When Instructions Next Dose New Misc Prescription (Hepatic panel, CBC) 0 Have labs on Printed Prescription New Misc Prescription (Stool Hpylori antigen) 0 Please send stool sample cup and depressor for collection and to drop off at hospital Printed Prescription New pantoprazole (Pantoprazole [address] Tab) 1 Tablets By Mouth 2 times a day Pickup at [facility]/pharmacy #[id number] Tonight at 9:00 PM New sucralfate (Carafate 1 gram Tab) 1 Tablets By Mouth 4 times a day Duration: 30 Days Monitor for constipation Pickup at [facility]/pharmacy #[id number] Today at lunch Changed aspirin (aspirin 81 [...] 2 Tablets By Mouth 09/03/2024 Pharmacy Information [facility]/pharmacy #[id number]: [address] [place], [place] [phone] Test Results CBC BMP WBC: 7.3 E9/L (09/01/24 05:23:00) Glucose Lvl: 76 mg/dL (09/01/24 05:23:00) RBC: 2.3 E12/L Low (09/01/24 05:23:00) BUN: 21 mg/dL (09/01/24 05:23:00) HGB: 9.7 gm/dL Low (09/02/24 09:38:00) Creatinine: 0.8 mg/dL (09/01/24 05:23:00) Hct: 28.8 % Low (09/02/24 09:38:00) BUN/Creat Ratio: 26 High (09/01/24 05:23:00) MCV: 85.6 fL (08/18 (more content not included)... Normal [facility] Ferritinon 09-02-2024 Ferritin [Mass/Vol] 11 ng/mL Low 24-336 [facility] Comment on above: Performed By: #### 2 [id number] #### [facility] [address] [place] [address] Folateon 09-02-2024 Folate [Mass/Vol] 18.5 ng/mL Normal >=6.7 [facility] Comment on above: Performed By: #### 2 [id number] #### [facility] [address] [place] [address] HEMATOLOGYOrdered By: SYSTEM SYSTEM on 09-02-2024 Hematocrit [...] (Bld) [Volume fraction] 28.8 % Low 37.7-49.0 [facility] Comment on above: Performed By: #### 1 [id number] #### [facility] [address] [place] [address] Hemoglobin (Bld) [Mass/Vol] 9.7 g/dL Low 13.5-17.5 [facility] Comment on above: Performed By: #### 1 [id number] #### [facility] [address] [place] [address] Hematocrit (Bld) [Volume fraction] 24.6 % Low 37.7-49.0 [facility] Comment on above: Performed By: #### 1 [id number] #### [facility] [address] [place] [address] Hemoglobin (Bld) [Mass/Vol] 8.7 g/dL Low 13.5-17.5 [facility] Comment on above: Performed By: #### 1 [id number] #### [facility] [address] [place] [address] Hep Func Panelon 09-02-2024 Albumin [Mass/Vol] 3.6 g/dL Normal 3.3-5.0 [facility] Comment on above: Performed By: #### 2 [id number] #### [facility] [address] [place] [address] Albumin/Globulin (S) [Mass conc ratio] 1.9 Normal 1.1-2.2 [facility] Comment on above: Performed By: #### 2 [id number] #### [facility] [address] [place] [address] ALP [Catalytic activity/Vol] 46 Int._Unit/L Normal 21-98 [facility] Comment on above: Performed By: #### 2 [id number] #### [facility] [address] [place] [address] ALT No additional P-5'-P [Catalytic activity/Vol] 10 Int._Unit/L Normal 6-46 [facility] Comment on above: Performed By: #### 2 [id number] #### [facility] [address] [place] [address] AST [Catalytic activity/Vol] 14 Int._Unit/L Normal 5-43 [facility] Comment on above: Performed By: #### 2 [id number] #### [facility] [address] [place] [address] Bilirubin [Mass/Vol] 1.6 mg/dL High 0.0-1.1 [facility] Comment on above: Performed By: #### 2 [id number] #### [facility] [address] [place] [address] Bilirubin.direct [Mass/Vol] 0.3 mg/dL Normal 0.0-0.4 [facility] Comment on above: Performed By: #### 2 [id number] #### [facility] [address] [place] [address] Bilirubin.indirect [Mass or moles/Vol] 1.3 mg/dL High 0.1-0.9 [facility] Comment on above: Performed By: #### 2 [id number] #### [facility] [address] [place] [address] Globulin (S) [Mass/Vol] 1.9 g/dL Normal 1.4-4.0 [facility] Comment on above: Performed By: #### 2 [id number] #### [facility] [address] [place] [address] Protein [Mass/Vol] 5.5 g/dL Low 6.0-7.8 [facility] Comment on above: Performed By: #### 2 [id number] #### [facility] [address] [place] [address] Inpatient Clinical Summaryon 09-02-2024 Inpatient Clinical Summary Inpatient Clinical Summary [address] [id number] Clinical Summary Person Information: Name: RADHA CABELLO Age: 83 Years : 1940 Sex: Male PCP: SCOTT TAI MD Marital Status: Phone: [phone] Race: White Ethnicity: Non- or Language: Ukrainian Visit Id: Visit Reason: upper gi bleed Speciality: Acuity: Enc Type: Inpatient Med Service: Medical Arrival: 08/31/2024 17:40:13 Discharge: Dispo Type: Address: [facility] [address] [place] [phone] Provider Notes: Diagnosis: 3:Hypocalcemia; 4:CAD (coronary artery [...] Candi Clark MD Referring Physician: Follow up: With: Address: When: Jazmin White [address] [place] [address], [facility] [address], [address] [phone] Business (1) 09/30/2024 9:30 AM With: Address: When: SCOTT TAI [address] [place] [address] Business (1) Within 1 to 2 days Comments: Call for followup appointment With: Address: When: EARL GUZMAN 09/05/2024 9:45 AM Comments: Appointment has already been scheduled - go to [facility] Type Location Start [facility] Follow Up [facility] 09/30/2024 9:30 AM 09/30/2024 9:45 AM Confirmed Patient Education Information: Esophagitis; Gastritis, Adult; Hiatal Hernia pantoprazole, sucralfate Normal [facility] Inpatient Patient Summaryon 09-02-2024 Inpatient Patient Summary Inpatient Patient Summary [address] [address] Patient Discharge Instructions PERSON INFORMATION Name: RADHA CABELLO Date of : 1940 Current Date: 09/02/2024 09:47:18 PHYSICIANS Admitting Physician: Nicole Ojeda MD Primary Care Physician: SCOTT TAI MD PCP Comment: Discharge Diagnosis: 3:Hypocalcemia; 4:CAD (coronary [...] Follow up: With: Address: When: Jazmin White [address] [place] [address], [address], [address] [phone] Business (1) 09/30/2024 9:30 AM With: Address: When: SCOTT TAI [address] [place] [phone] Business (1) Within 1 to 2 days Comments: Call for followup appointment With: Address: When: EARL GUZMAN 09/05/2024 9:45 AM Comments: Appointment has already been scheduled - go to [facility] In the event that this physician does not participate in your insurance network, please consult with your insurance company to find a nearby participating provider. Type Location Start [facility] Follow Up [facility] 09/30/2024 9:30 AM 09/30/2024 9:45 AM Confirmed Comment: PAULINO Cordoba GEROLD E, have received the attached patient education materials/instructions and have verbalized understanding: Patient Signature Date Clinican/Nurse Signature Date HERE ARE THE MEDICATION CHANGES THAT OCCURRED DURING YOUR HOSPITAL STAY New Medications [id number], [address] [place] [phone], [phone] pantoprazole (Pantoprazole [address] Tab) 1 Tablets By Mouth 2 times a day. Refills: 0. Last Dose: Nex t Dose: sucralfate (Carafate 1 gram Tab) 1 Tablets By Mouth 4 times a day for 30 Days. Monitor for constipation. Refills: 0. Last Dose: Nex t Dose: Printed Prescriptions Misc Prescription (Hepatic panel, CBC) 0. Have labs on 09/05. Refills: 0., Results to Dr. White and PCP Last Dose: Nex t Dose: Misc Prescription (Stool Hpylori antigen) 0. Please send stool sample cup and depressor for collection and to drop off at hospital. Refills: 0., Results to Dr. White and PCP Last Dose: Nex t Dose: Medications to Continue Taking That Have Changed Printed Prescriptions START: aspirin (aspirin 81 mg Oral EC Tab) 1 Tablets By Mouth every day. Please make sure that aspirin is always enteric coated. May resume on 09/03 if no bleeding. Refills: 0. Last Dose: Nex t Dose: STOP: aspirin 81 Milligram By Mouth every day. Other Medications START: clopidogrel (clopidogrel 75 mg Tab) 1 Tablets By Mouth every day. May resume on 09/05 have labs drawn in a.m. and call PCP for hemoglobin results and to confirm resuming plavix.. Last Dose: Nex t Dose: STOP: clopidogrel (clopidogrel 75 mg Tab) 1 Tablets. TAKE 1 TABLET BY MOUTH EVERY DAY. START: lisinopril (lisinopril 20 mg Tab) 1 Tablets By Mouth every day. Hold for systolic blood pressure 110 or less. Last Dose: Nex t Dose: STOP: lisinopril (lisinopril 20 mg Tab) 1 Tablets By Mouth every day. TAKE 1 TABLET BY MOUTH EVERY DAY. Medications to Continue with No Changes Other Medications atorvastatin (atorvastatin 40 mg Tab) 2 Tablets. TAKE 1 TABLET BY MOUTH EVERYDAY AT BEDTIME. Last Dose: Nex t Dose: carvedilol (carvedilol 6.25 mg Tab) 1 Tablets 2 times a day. TAKE 1 TABLET BY MOUTH EVERY MORNING AND EVENING WIT (more content not included)... Normal [facility] Interdisciplinary Note - Dennis e Manageron 09-02-2024 Interdisciplinary Note - Nascar Driver Interdisciplinary Note - Nascar Driver CRM to room 305 Patient is awake, alert and oriented. Patient is from home. Patient Grand son is present and is his ride at [place]. Patient DME, insurance and PCP verified by previous CRM. He sees Dr Tai. Patient is an inpatient, IMM was done on 09/01. Patient came in with upper GIB. Patient is assigned to [facility] SENIOR PHARMACY TECHNICIAN, see notes. Patient on 09/01 had EGD. Patient Hgb is more stable today. He did get one unit of PRBC. Per Patient he is a DC today. Patient declines any safety concerns to return home. Patient declined need for DME, HH or Paramed. Patient was provided CRM contact, white board updated. CRM following CRM will get updates at 10 AM from [facility] Comment on above: Result Comment: Elec tronically Signed By: Deepa Smith\.br\Date and Time Signed: 09/02/24 11:01 EDT Interdisciplinary Note - Nascar Driver Interdisciplinary Note - Nascar Driver CRM to room 305 Patient is awake, alert and oriented. Patient is from home. Patient Grand son is present and is his ride at [place]. Patient DME, insurance and PCP verified by previous CRM. He sees Dr Tai. Patient is an inpatient, IMM was done on 09/01. Patient came in with upper GIB. Patient is assigned to Nely SENIOR PHARMACY TECHNICIAN, see notes. Patient on 09/01 had EGD. Patient Hgb is more stable today. He did get one unit of PRBC. Per Patient he is a DC today. Patient declines any safety concerns to return home. Patient declined need for DME, HH or Paramed. Patient was provided CRM contact, white board updated. CRM following CRM will get updates at [address] [facility] Comment on above: Result Comment: Elec tronically Signed By: Deepa Smith\.br\Date and Time Signed: 09/02/24 09:06 EDT Ironon 09-02-2024 Iron [Mass/Vol] 21 microgram/dL Low 35-153 [facility] [place] [facility] Comment on above: Performed By: #### 2 [id number] #### [facility] [address] [place] [address] LDHon 09-02-2024 LDH 135 Int._Unit/L Normal 93-218 [facility] Comment on above: Performed By: #### 2 [id number] #### [facility] [address] [place] [address] Main OR Intraoperative Recor don 09-02-2024 Main OR Intraoperative Record Main OR Intraoperative Record IntraOp Document Type FT Summary Primary Physician: Jazmin White MD Finalized Date/Time: 09/02/24 10:49:23 Pt. Name: RADHA CABELLO Boris/Sex: 1940 Male Med Rec #: [id number] Physician: Nicole Ojeda MD Financial #: [id number] Pt. Type: I Room/Bed: 08/18 Admit/Disch: 08/31/24 17:40:13 - Institution: Case Times [...] Colby Role Performed Anesthesiologist Surgeon - Primary Emt I/85 - Primary Home Health Clinical Liaison Time In 09/01/24 11:48:00 09/01/24 11:48:00 09/01/24 [...] Out Miles Bell, Given Participants Cindy KABA, Jim Robledo RN, Anderson Caballero Micala E Time Out Complete [...] Description EGD Primary Procedure Yes Primary Surgeon Cindy KABA, Jazmin Colby Start 09/01/24 11:52:00 Stop 09/01/24 11:55:00 Anesthesia [...] and tissue Entry 1 Skin Integrity Intact, [place], Warm, & Skin Abnormality No Dry Outcomes [...] Pillow Und (more content not included)... Normal [facility] Retic Counton 09-02-2024 Reticulocytes/100 RBC (Bld) 5.8 % High 0.5-2.2 [facility] Comment on above: Result Comment: Reti culocyte count has been corrected for anemia Performed By: #### 2 [id number] #### [facility] [address] [place] [address] TIBC Calculatedon 09-02-2024 Iron binding capacity [Mass/Vol] 395 microgram/dL Normal 250-400 [facility] Comment on above: Performed By: #### 1 [id number] #### [facility] [address] [place] [address] Transferrin [Mass/Vol] 282 mg/dL Normal 200-370 [facility] Comment on above: Performed By: #### 1 [id number] #### [facility] [address] [place] [address] TSH With T4fr Reflexon 09-02 TSH Qn 2.11 m[IU]/L Normal 0.34-5.60 [facility] Comment on above: Performed By: #### 1 [id number] #### [facility] [address] [place] [address] Vit B12on 09-02-2024 Cobalamin (Vitamin B12) [Mass/Vol] 524 pg/mL Normal 50-1500 [facility] Comment on above: Performed By: #### 2 [id number] #### [facility] [address] [place] [address] ABO/Rhon 09-01-2024 ABO/Rh Positive Invalid Interpretation Code [facility] Comment on above: Performed By: #### 2 [id number] #### [facility] [address] [place] [address] ABO/Rh History Checkon 09-01 ABO/Rh History Check Type verified by second s Normal [facility] Comment on above: Performed By: #### 1 [id number] #### [facility] [address] [place] [address] ABO/Rh Retypeon 09-01-2024 ABO/Rh Retype Interp Positive Invalid Interpretation Code [facility] Comment on above: Performed By: #### 1 [id number] #### [facility] [address] [place] [address] ABSCon 09-01-2024 ABSC Gel Interp Negative Normal [facility] Comment on above: Performed By: #### 1 [id number] #### [facility] [address] [place] [address] Albuminon 09-01-2024 Albumin [Mass/Vol] 3.4 g/dL Normal 3.3-5.0 [facility] Comment on above: Performed By: #### 2 [id number] #### [facility] [address] [place] [address] BLOOD BANKOrdered By: Jose A Johnson on 09-01-2024 ABO/Rh Interp Positive Invalid Interpretation Code [facility] BB Subsection ABSC Gel Interp Negative (09/01/24 6:32 AM) Normal [facility] BB Subsection ABO/Rh Retype Interp Positive Invalid Interpretation Code [facility] BB Subsection BMPon 09-01-2024 Anion gap [Moles/Vol] 9 mmol/L Normal 10-03 [facility] [facility] Comment on above: Performed By: #### 2 [id number] #### [facility] [address] [place] [address] Calcium [Mass/Vol] 7.8 mg/dL Low 8.9-11.1 [facility] Comment on above: Performed By: #### 2 [id number] #### [facility] [address] [place] [address] Chloride [Moles/Vol] 111 mmol/L Normal 101-111 [facility] Comment on above: Performed By: #### 2 [id number] #### [facility] [address] [place] [address] CO2 [Moles/Vol] 22 mmol/L Normal 21-31 [facility] Comment on above: Performed By: #### 2 [id number] #### [facility] [address] [place] [address] Creatinine [Mass/Vol] 0.8 mg/dL Normal 0.5-1.3 [facility] Comment on above: Performed By: #### 2 [id number] #### [facility] [address] [place] [address] Glucose [Mass/Vol] 76 mg/dL Normal 55-199 [facility] Comment on above: Performed By: #### 2 [id number] #### [facility] [address] [place] [address] Potassium [Moles/Vol] 4.0 mmol/L Normal 3.5-5.3 [facility] Comment on above: Performed By: #### 2 [id number] #### [facility] [address] [place] [address] Sodium [Moles/Vol] 138 mmol/L Normal 135-145 [facility] Comment on above: Performed By: #### 2 [id number] #### [facility] [address] [place] [address] Urea nitrogen [Mass/Vol] 21 mg/dL Normal 5-21 [facility] Comment on above: Performed By: #### 2 [id number] #### [facility] [address] [place] [address] Urea nitrogen/Creatinine [Mass ratio] 26 No Units High 10-20 [facility] Comment on above: Performed By: #### 2 [id number] #### [facility] [address] [place] [address] Blood Bank ID#on 09-01-2024 BBID# [id number] Invalid Interpretation Code [facility] Comment on above: Performed By: #### 1 [id number] #### [facility] [address] [place] [address] CBC w/ Auto Diffon Anisocytosis Ql (Bld) PRESENT Invalid Interpretation Code [facility] Comment on above: Performed By: #### 2 [id number] #### [facility] [address] [place] [address] Basophils/100 WBC (Bld) 0.6 % Normal 0.0-2.0 [facility] Comment on above: Performed By: #### 2 [id number] #### [facility] [address] [place] [address] Basophils/Leukocyte s Auto (Bld) [Pure # fraction] 0.0 E9/L Normal 0.0-0.2 [facility] Comment on above: Performed By: #### 2 [id number] #### [facility] [address] [place] [address] Eosinophils (Bld) [#/Vol] 0.1 E9/L Normal 0.0-0.5 [facility] Comment on above: Performed By: #### 2 530872 #### [facility] [address] [place] [address] Eosinophils/100 WBC (Bld) 0.8 % Normal 0.0-8.0 [facility] Comment on above: Performed By: #### 2 [id number] #### [facility] [address] [place] [address] Erythrocyte distribution width (RBC) [Ratio] 16.7 % High 10.9-14.2 [facility] Comment on above: Performed By: #### 2 [id number] #### [facility] [address] [place] [address] Hematocrit (Bld) [Volume fraction] 19.9 % Low 37.7-49.0 [facility] Comment on above: Performed By: #### 2 [id number] #### [facility] [address] [place] [address] Hemoglobin (Bld) [Mass/Vol] 6.7 g/dL Abnormal 13.5-17.5 [facility] Comment on above: Result Comment: Resu lts called to CLEMENTE SAEZ by [id number] and read back on 09/01/2024 05:46:07. Critical Result Verified by Repeat Analysis Performed By: #### 2 [id number] #### [facility] [address] [place] [address] Hypochromia Auto Ql (Bld) PRESENT Invalid Interpretation Code [facility] Comment on above: Performed By: #### 2 [id number] #### [facility] [address] [place] [address] Lymphocytes (Bld) [#/Vol] 1.4 E9/L Normal 1.0-4.0 [facility] Comment on above: Performed By: #### 2 705325 #### [facility] [address] [place] [address] Lymphocytes/100 WBC (Bld) 19.3 % Normal 14.0-50.0 [facility] Comment on above: Performed By: #### 2 866603 #### [facility] [address] [place] [address] MCH (RBC) [Entitic mass] 29.0 pg Normal 27.0-34.0 [facility] Comment on above: Performed By: #### 2 [id number] #### [facility] [address] [place] [address] MCHC (RBC) [Mass/Vol] 33.8 g/dL Normal 31.4-36.0 [facility] Comment on above: Performed By: #### 2 [id number] #### [facility] [address] [place] [address] MCV (RBC) [Entitic vol] 85.6 fL Normal 80.0-100.0 [facility] Comment on above: Performed By: #### 2 [id number] #### [facility] [address] [place] [address] Microcytes Ql (Bld) PRESENT Invalid Interpretation Code [facility] Comment on above: Performed By: #### 2 [id number] #### [facility] [address] [place] [address] Monocytes (Bld) [#/Vol] 0.6 E9/L Normal 0.2-1.0 [facility] Comment on above: Performed By: #### 2 [id number] #### [facility] [address] [place] [address] Neutrophils (Bld) [#/Vol] 5.2 E9/L Normal 2.0-7.5 [facility] Comment on above: Performed By: #### 2 [id number] #### [facility] [address] [place] [address] Neutrophils/100 WBC (Bld) 70.7 % Normal 36.0-75.0 [facility] Comment on above: Performed By: #### 2 824974 #### [facility] [address] [place] [address] Platelet mean volume (Bld) [Entitic vol] 8.0 fL Normal 6.4-10.8 [facility] Comment on above: Performed By: #### 2 355131 #### [facility] [address] [place] [address] Platelets (Bld) [#/Vol] 189.0 E9/L Normal 150.0-500.0 [facility] Comment on above: Performed By: #### 2 364269 #### [facility] [address] [place] [address] Polychromasia LM Ql (Bld) PRESENT Invalid Interpretation Code [facility] Comment on above: Performed By: #### 2 385016 #### [facility] [address] [place] [address] RBC (Bld) [#/Vol] 2.3 E12/L Low 4.3-5.9 [facility] Comment on above: Performed By: #### 2 332887 #### [facility] [address] [place] [address] RBC size Nom (Bld) SEE MORPHOLOGY Invalid Interpretation Code [facility] Comment on above: Performed By: #### 2 [id number] #### [facility] [address] [place] [address] WBC corrected for nucl RBC Auto (Bld) [#/Vol] 7.3 E9/L Normal 4.0-11.0 [facility] Comment on above: Performed By: #### 2 [id number] #### [facility] [address] [place] [address] CHEMISTRYOrdered By: SYSTEM SYSTEM on 09-01-2024 Albumin [Mass/Vol] 3.4 g/dL Normal 3.3 - 5.0 gm/dL [facility] Chem Anion gap [Moles/Vol] 9 mmol/L Normal 6 - 16 mEq/L [facility] Calcium [Mass/Vol] 7.8 mg/dL Low 8.9 - 11. 1 mg/dL [facility] Chloride [Moles/Vol] 111 mmol/L Normal 101 - 111 mmol/L [facility] CO2 [Moles/Vol] 22 mmol/L Normal 21 - 31 mmol/L [facility] Creatinine [Mass/Vol] 0.8 mg/dL Normal 0.5 - 1.3 mg/dL [facility] eGFR 88 mL/min/1.73 m2 Normal >=59mL/min / 1.73 m2 [facility] Glucose [Mass/Vol] 76 mg/dL [...] Normal 0.0 - 2.0 % Remisol Heme Basophils/Leukocyte s Auto (Bld) [Pure # fraction] 0.0 E9/L [...] (Bld) [Volume fraction] 24.1 % Low 37.7-49.0 [facility] Comment on above: Performed By: #### 1 [id number] #### [facility] [address] [place] [address] Hemoglobin (Bld) [Mass/Vol] 8.3 g/dL Low 13.5-17.5 [facility] Comment on above: Performed By: #### 1 [id number] #### [facility] [address] [place] [address] Hematocrit (Bld) [Volume fraction] 26.5 % Low 37.7-49.0 [facility] Comment on above: Performed By: #### 1 [id number] #### [facility] [address] [place] [address] Hemoglobin (Bld) [Mass/Vol] 9.1 g/dL Low 13.5-17.5 [facility] Comment on above: Performed By: #### 1 [id number] #### [facility] [address] [place] [address] Hematocrit (Bld) [Volume fraction] 27.7 % Low 37.7-49.0 [facility] Comment on above: Order Comment: per R N draw patient at 1115 Performed By: #### 1 [id number] #### [facility] [address] [place] [address] Hemoglobin (Bld) [Mass/Vol] 9.4 g/dL Low 13.5-17.5 [facility] Comment on above: Order Comment: per R N draw patient at 1115 Performed By: #### 1 [id number] #### [facility] [address] [place] [address] Inpatient Clinical Summaryon 09-01-2024 Inpatient Clinical Summary Inpatient Clinical Summary [address] [address] Clinical Summary Person Information: Name: RADHA CABELLO Age: 83 Years : 1940 Sex: Male PCP: SCOTT TAI MD Marital Status: Phone: [phone] Race: White Ethnicity: Non- or Language: Ukrainian Visit Id: Visit Reason: upper gi bleed Speciality: Acuity: Enc Type: Inpatient Med Service: Medical Arrival: 08/31/2024 17:40:13 Discharge: Dispo Type: Address: [address] [place] [address] [place] [id number] Provider Notes: Diagnosis: 3:HTN (hypertension), benign; 4:CAD [...] Physician: Follow up: Patient Education Information: Normal [facility] Inpatient Patient Summaryon 09-01-2024 Inpatient Patient Summary Inpatient Patient Summary [place] [address] Patient Discharge Instructions PERSON INFORMATION Name: RADHA CABELLO Date of : 1940 Current Date: 09/01/2024 [...] verbalized understanding: Patient Signature Date Clinican/Nurse Signature Date HERE ARE THE MEDICATION CHANGES THAT OCCURRED DURING YOUR HOSPITAL STAY Medications to Continue with No Changes Other Medications aspirin 81 Milligram By Mouth every day. Last Dose: Nex t Dose: atorvastatin (atorvastatin 40 mg Tab) 2 Tablets. TAKE 1 TABLET BY MOUTH EVERYDAY AT BEDTIME. Last Dose: Nex t Dose: carvedilol (carvedilol 6.25 mg Tab) 1 Tablets 2 times a day. TAKE 1 TABLET BY MOUTH EVERY MORNING AND EVENING WITH MEALS. Last Dose: Nex t Dose: clopidogrel (clopidogrel 75 mg Tab) 1 Tablets. TAKE 1 TABLET BY MOUTH EVERY DAY. Last Dose: Nex t Dose: isosorbide mononitrate (isosorbide mononitrate 30 mg ER Tab) TAKE 1 TABLET BY MOUTH EVERY DAY. Last Dose: Nex t Dose: lisinopril (lisinopril 20 mg Tab) 1 Tablets By Mouth every day. TAKE 1 TABLET BY MOUTH EVERY DAY. Last Dose: Nex t Dose: magnesium oxide (magnesium oxide 400 mg Tab) 2 Tablets By Mouth., patient takes 840 mg by mouth daily Last Dose: Nex t Dose: Comment: MEDICATION LIST PROVIDED FOR YOU IS [...] Leaflets: You may receive a survey from Aline Billingsley asking you to rate your care experience. Your feedback is important and will help us understand what we do well and how we can improve the quality of care we provide to you, your loved ones and our community. It???s an honor to serve you. Thank you for choosing [facility] Normal [facility] Interdisciplinary Note - Dennis e Manageron 09-01-2024 Interdisciplinary Note - Nascar Driver Interdisciplinary Note - Nascar Driver Patient awake and alert in bed with Wayne Pretty at bedside. Patient previously rounded with Nely SENIOR PHARMACY TECHNICIAN, see notes. Patient participated in dc planning. [...] dc needs or concerns. CRM following Normal [facility] Comment on above: Result Comment: Elec tronically Signed By: Mey Summers\.br\Date and Time Signed: 09/01/24 09:03 EDT MICRO OTHER TESTSOrdered By: Eunice Cervantes on 09-01-2024 Occult blood panel (Stl) Positive *ABN* (09/01/24 3:53 PM) Invalid Interpretation Code Negative [facility] [place] [facility] Intraoperative Recor don 09-01-2024 Main OR Intraoperative Record Main OR Intraoperative Record IntraOp Document Type FT Summary Primary Physician: Cindy KABA, Jazmin Colby Finalized Date/Time: 09/01/24 11:58:15 Pt. Name: PAULINORADHA/Sex: 1940 Male Med Rec #: [id number] Physician: Nicole Ojeda MD Financial #: [id number] Pt. Type: I Room/Bed: [facility]/ Admit/Disch: 08/31/24 17:40:13 - Institution: Case Times FT Entry 1 Patient Times In Room 09/01/24 11:48:00 Out Room 09/01/24 11:57:00 Procedure Times Start 09/01/24 11:52:00 Stop 09/01/24 11:55:00 Anesthesia Times Start 09/01/24 11:48:00 Stop 09/01/24 11:57:00 Last Modified By: Angeles Fernandez RN 09/01/24 11:58:11 Case Attendance FT Entry 1 Entry 2 Entry 3 Case Attendee Miles Bell MD, Angeles Gardner RN Role Performed Anesthesiologist Surgeon - Primary Emt I/85 - Primary Home Health Clinical Liaison Time In 09/01/24 11:48:00 09/01/24 11:48:00 09/01/24 [...] and tissue Entry 1 Skin Integrity Intact, [place], Warm, & Skin Abnormality No Dry Outcomes [...] Pillow Und (more content not included)... Normal [facility] Main OR PACU II Recordon Main OR PACU II Record Main OR PACU II Record PACU Phase II Document Type FT Summary Primary Physician: Cindy KABA, Jazmin Colby Finalized Date/Time: 09/01/24 13:45:16 Pt. Name: RADHA CABELLO Anny Pulliam./Sex: 1940 Male Med Rec #: [id number] Physician: Nicole Ojeda MD Financial #: [id number] Pt. Type: I Room/Bed: [place] [address] Admit/Disch: 08/31/24 17:40:13 - Institution: Case Times [...] By: Peggy Perry RN 09/01/24 13:45 Normal [facility] Main OR Preoperative Recordo n 09-01-2024 Main OR Preoperative Record Main OR Preoperative Record Holding Area Document Type FT Summary Primary Physician: Jazmin White MD Finalized Date/Time: 09/01/24 11:18:49 Pt. Name: RADHA CABELLO Anny /Sex: 1940 Male Med Rec #: [id number] Physician: Nicole Ojeda MD Financial #: [id number] Pt. Type: I Room/Bed: [place] [address] Admit/Disch: 08/31/24 17:40:13 - Institution: Case Times [...] By: Celia Melvin RN 09/01/24 11:18 Normal [facility] Patient Education - Texton 0 09-01-2024 Patient Education - Text Patient Education - Text Normal [facility] RCOon 09-01-2024 # of Units 1 Invalid Interpretation Code [facility] Comment on above: Performed By: #### 1 [id number] #### [facility] [address] [place] [address] Date Required 20240901 Invalid Interpretation Code [facility] Comment on above: Performed By: #### 1 [id number] #### [facility] [address] [place] [address] Order to Transfuse Yes Normal [facility] Comment on above: Performed By: #### 1 [id number] #### [facility] [address] [place] [address] Product Type None Required Invalid Interpretation Code [facility] Comment on above: Performed By: #### 1 [id number] #### [facility] [address] [place] [address] Stl Oclt Bldon 09-01-2024 Occult blood panel (Stl) Positive Abnormal Negative [facility] Comment on above: Performed By: #### 2 [id number] #### [facility] [address] [place] [address] eGFRon 09-01-2024 eGFR 88 mL/min/1.73 m2 Normal >=59 [facility] Comment on above: Performed By: #### 1 [id number] #### [facility] [address] [place] [address] Hct & Hgbon 08-31-2024 Hematocrit (Bld) [Volume fraction] 22.4 % Low 37.7-49.0 [facility] Comment on above: Performed By: #### 1 [id number] #### [facility] [address] [place] [address] Hemoglobin (Bld) [Mass/Vol] 7.9 g/dL Low 13.5-17.5 [facility] Comment on above: Performed By: #### 1 [id number] #### [facility] [address] [place] [address] 36on 03-31-2024 36 Regarding labs from 03/30/2024: Per Dr. Adkins, please inform patient to STOP hydrochlorothiazide but stay on Farxiga. He needs to have repeat BMP in 3-4 weeks. Thank you. [facility] ALL BASIC METABOLIC PANELon 03-30-2024 Anion gap [Moles/Vol] 13.2 mmol/L [facility] Calcium [Mass/Vol] 9.2 mg/dL 8.5 - 10. 1 mg/dL [facility] Chloride [Moles/Vol] 107 mmol/L 98 - 107 mmol/L [facility] Healthcare CO2 [Moles/Vol] 28.1 mmol/L 21.0 - 32.0 mmol/L [facility] Creatinine [Mass/Vol] 1.43 mg/dL High 0.70 - 1.30 mg/dL [facility] GFR/1.73 sq M.predicted CKD-EPI (S/P/Bld) [Vol rate/Area] 58 Low >=60 mL/min/1.73 m 2 [facility] Glucose [Mass/Vol] 89 mg/dL 74 - 106 mg/dL [facility] Interpretation and review of laboratory results Abnormal [facility] Healthcare Potassium [Moles/Vol] 4.3 mmol/L 3.5 - 5.1 mmol/L [facility] Sodium [Moles/Vol] 144 mmol/L 136 - 145 mmol/L [facility] TBH EGFR-NON AF FRENCH 47 Low >=60 mL/min/1.73 m 2 [facility] Urea nitrogen [Mass/Vol] 29 mg/dL High 7.0 - 18.0 mg/dL [facility] Urea nitrogen/Creatinine [Mass ratio] 20.3 mg/mg [facility] Healthcare Office Visiton 03-22-2024 Follow-up visit [id number] Radha Cabello 1940 M Date Provider Department Center 03/22/2024 5618-CANDI QUIROS Family History Problem Relation Age of Onset Coronary artery disease Father Hypertension Father Family Status - Relation Status Age at Father Level of Service:81851 MS OFFICE/OUTPATIENT ESTABLISHED MOD MDM 30 MIN [facility] ISTAT XRay CREon 09-20-2021 Creatinine [Mass/Vol] 0.9 mg/dL Normal 0.6-1.3 [facility] Comment on above: Result Comment: ER/E SD physician is notified/shown all ISTAT results. Critical values may be confirmed by laboratory testing if deemed necessary by ER attending doctor. Performed By: #### I SCRE #### [facility] [address] [place] [address] Point of Care testing , ISTAT GFR ( > 60 Normal [facility] Comment on above: Result Comment: GFR estimated reference range: According to KDOQI guidelines, <60 ml/min/1.73m2 is sufficient to diagnose a patient with chronic kidney disease. PERFORMED BY: [place] [address] PATHOLOGIST COPY WORKER CORINNA MCDERMOTT M.D. Performed By: #### I SCRE #### [address] Point of Care testing , ISTAT GFR (Non- Am > 60 Normal [facility] Comment on above: Performed By: #### I SCRE #### [address] Point of Care testing , MR abdomen wo/w conon 2021 MR abdomen wo/w con [facility] Main [place] [address] [place] [address] MRI Report Signed Patient: Radha Cabello MR#: [id number] : 1940 Acct:[id number] Age/Sex: 81 / M ADM Date: 09/20/21 Loc: [facility] Room: Type: [facility] Attending Dr: Hasmukh Morelos DO Ordering [...] Ayala Jr., D.OErika09/20/2021 11:13 AM Dictation Location: [place] [address] Transcribed By: [facility] 09/20/21 1113 Dictated By: Layton Ayala Jr, DO 09/20/21 1057 Signed By: 09/20/21 1113 [facility] CULTURE URINEon 07-28-2021 CULTURE URINE Isolate [...] <=0.12 S F Nitrofurantoin 128 R F Trimethoprim/Sulfamethoxazol e <=20 S F Normal [facility] Comment on above: Performed By: #### U RCX ####[facility] [address] [place], [place] [address] ABD/PELV W CONon 07-28-19 CT ABD/PELV W CON EXAMINATION: CT ABD/ PELV W CON HISTORY: Abdominal pain COMPARISON: CT [...] duodenal diverticulum. Bilateral renal cortical cysts. No hydronephrosis/nephrolithias is. Right inguinal hernia containing portion of bladder dome in it. Fat-containing left-sided inguinal hernia. Prostatomegaly. Imaging findings are suggestive of infectious/inflammatory enterocolitis. Colonic diverticulosis. Electronically authenticated by: ANDRES GOINS Date: 2021-07-27 12:43 Normal [facility] CBC AUTO DIFFon 07-26-2021 BASO # 0.1 103/ul Normal 0.0-0.1 [facility] Comment on above: Performed By: #### C BC ####[facility] [address] [place] [id number]. Nelson Pollock Basophils/100 WBC (Bld) 0.5 % Normal 0.2-2.0 [facility] Comment on above: Performed By: #### C BC ####[facility] [address] [place], [place] [address]Dr. Nelson Pollock EO # 0.2 103/ul Normal 0.0-0.7 [facility] Comment on above: Performed By: #### C BC ####[facility] [address] [place], [place] [address]Dr. Nelson Pollock Eosinophils/100 WBC (Bld) 2.1 % Normal 0.9-7.0 [facility] Comment on above: Performed By: #### C BC ####[facility] [address] [place], [place] [address]Dr. Nelson Pollock Erythrocyte distribution width (RBC) [Ratio] 13.7 % Normal 11.0-15.0 [facility] Comment on above: Performed By: #### C BC ####[facility] [address] [place], [place] [address]Dr. Nelson Pollock Hematocrit (Bld) [Volume fraction] 42.8 % Normal 42.0-54.0 [facility] Comment on above: Performed By: #### C BC ####[facility] [address] [place], [place] [address]Dr. Nelson Pollock Hemoglobin (Bld) [Mass/Vol] 14.5 g/dL Normal 14.0-18.0 [facility] Comment on above: Performed By: #### C BC ####[facility] [address] [place], [place] [address]Dr. Nelson Pollock IG # 0.04 10e3/ul Critically high 0.00-0.03 [facility] Comment on above: Performed By: #### C BC ####[facility] [address] [place] [address]Dr. Cloverkusum Pollock IG % 0.4 % Normal 0.0-0.5 [facility] Comment on above: Performed By: #### C BC ####[facility] [address] [place] [address]Dr. Nelson Phill LYMPH # 1.7 103/ul Normal 1.2-3.8 [facility] Comment on above: Performed By: #### C BC ####[facility] [address] [place] [address]Dr. Cloverkusum Pollock Lymphocytes/100 WBC (Bld) 15.6 % Critically low 20.5-60.0 [facility] Comment on above: Performed By: #### C BC ####[facility] [address] [place], [place] [address]Dr. Nelson Pollock MANUAL DIFF REQ NO Normal [facility] Comment on above: Performed By: #### C BC ####[facility] [address] [place], [place] [address]Dr. Nelson Phill MCH (RBC) [Entitic mass] 29.2 pg Normal 25.9-34.0 [facility] Comment on above: Performed By: #### C BC ####[facility] [address] [place] [address]Dr. Nelson Phill MCHC (RBC) [Mass/Vol] 33.9 g/dL Normal 29.9-35.2 [facility] Comment on above: Performed By: #### C BC ####[facility] [address] [place], [place] [address]Dr. Nelson Phill MCV (RBC) [Entitic vol] 86.1 fL Normal 80.0-94.0 [facility] Comment on above: Performed By: #### C BC ####[facility] [address] [place], [place] [address]Dr. Nelson Pollock MONO # 0.8 103/ul Normal 0.3-0.8 [facility] Comment on above: Performed By: #### C BC ####[facility] [address] [place] [id number]. Nelson Pollock Monocytes/100 WBC (Bld) 7.3 % Normal 1.7-12.0 [facility] Comment on above: Performed By: #### C BC ####[facility] [facility] [address] [place] [address] [id number]. Nelson Pollock NEUT # 8.1 103/ul Critically high 1.4-6.5 [facility] Comment on above: Performed By: #### C BC ####[facility] [address] [id number]. Nelson Pollock Neutrophils/100 WBC (Bld) 74.1 % Normal 43.0-75.0 [facility] Comment on above: Performed By: #### C BC ####[facility] [address] [address]Dr. Nelson Pollock Platelet mean volume (Bld) [Entitic vol] 10.2 fL Normal 9.5-13.5 [facility] Comment on above: Performed By: #### C BC ####[facility] [address] [address]Dr. Nelson Pollock PLT 191 103/ul Normal 150-450 [facility] Comment on above: Performed By: #### C BC ####[facility] [address] [place] [id number]. Nelson Pollock RBC 4.97 106/ul Normal 4.70-6.10 [facility] Comment on above: Performed By: #### C BC ####[facility] [address] [place] [id number]. Nelson Pollock WBC 11.0 103/ul Normal 4.0-11.0 [facility] Comment on above: Performed By: #### C BC ####[facility] [address] [place] [id number]. Nelson Pollock ER URINE PROFILEon 2 Bilirubin Ql (U) Negative Normal NEGATIVE [facility] Comment on above: Performed By: #### E SERA UMJOSEPRO #### [facility] [address] [place] [address] Dr. Nelson Pollock Clarity (U) SL CLOUDY Abnormal CLEAR [facility] Comment on above: Performed By: #### DAT DIALLORO #### [facility] [address] [place] [address] Dr. Nelson Pollock Color (U) LT. YELLOW Normal YELLOW [facility] Comment on above: Performed By: #### DAT DIALLORO #### [facility] [address] [place] [address] Dr. Nelson Pollock ERUAHD A micrscopic examina tion will be performed if indicated. Normal [facility] Comment on above: Performed By: #### DAT DIALLORO #### [facility] [address] [place] [address] Dr. Nelson Pollock Glucose Ql (U) Negative Normal NEGATIVE [facility] Comment on above: Performed By: #### DAT DIALLORO #### [facility] [address] [place] [address] Dr. Nelson Pollock Hemoglobin Ql (U) Negative Normal NEGATIVE [facility] Comment on above: Performed By: #### DAT DIALLORO #### [facility] [address] [place] [address] Dr. Nelson Pollock Ketones Ql (U) Negative Normal NEGATIVE [facility] Comment on above: Performed By: #### DAT DIALLORO #### [facility] [address] [place] [address] Dr. Nelson Pollock LEUKOCYTES SMALL Abnormal NEGATIVE [facility] Comment on above: Performed By: #### DAT DIALLORO #### [facility] [address] [place] [address] Dr. Nelson Pollock Nitrite Ql (U) Negative Normal NEGATIVE [facility] Comment on above: Performed By: #### DAT DIALLORO #### [facility] [address] [place] [address] Dr. Nelson Pollock pH (U) 5.0 [pH] Normal 5-9 [facility] Comment on above: Performed By: #### E SERA, UMICRO #### [facility] [address] [place] [address] Dr. Nelson Pollock SPEC GRAVITY <=1.005 Abnormal 1.005-<=1.0 25 [facility] Comment on above: Performed By: #### Anny ZAMORA, UMICRO #### [facility] [address] [place] [address] Dr. Nelson Pollock UA PROTEIN Negative Normal NEGATIVE/ TRACE [facility] Comment on above: Performed By: #### E SERA, UMICRO #### [facility] [address] [place] [address] Dr. Nelson Pollock UR MICRO IND INDICATED Normal [facility] Comment on above: Performed By: #### Anny ZAMORA, UMICRO #### [facility] [address] [place] [address] Dr. Nelson Pollock Urobilinogen Qn (U) 0.2 {Christopher'U}/dL Normal 0.2 - 1. 0 [facility] Comment on above: Performed By: #### Anny ZAMORA, UMICRO #### [facility] [address] [place] [address] Dr. Nelson Pollock LACTATE/LACTIC ACIDon 2021 Lactate [Moles/Vol] 1.2 mmol/L Normal 0.7-2.0 [facility] Comment on above: Performed By: #### L ACT #### [facility] [address] [place] [address] Dr. Nelson Pollock LIPASEon 07-26-2021 Lipase [Catalytic activity/Vol] 865.0 U/L Critically high 23.0-300.0 [facility] Comment on above: Performed By: #### L IPA, HSTROPN, CMP ####[facility] [address] [address]Dr. Nelson Pollock PROF 14(COMP METB)on 022 Albumin [Mass/Vol] 4.1 g/dL Normal 3.4-5.0 [facility] Comment on above: Performed By: #### L IPA, HSTROPN, CMP ####[facility] [address] [address]Dr. Nelson Pollock Albumin/Globulin [Mass ratio] 1.2 {ratio} Normal [facility] Comment on above: Performed By: #### L IPA, HSTROPN, CMP ####[facility] [address] [address]Dr. Nelson Pollock ALP [Catalytic activity/Vol] 89 U/L Normal 46-116 [facility] Comment on above: Performed By: #### L IPA, HSTROPN, CMP ####[facility] [address] [place], [place] [address]Dr. Nelson Pollock ALT [Catalytic activity/Vol] 43 U/L Normal 16-63 [facility] Comment on above: Performed By: #### L IPA, HSTROPN, CMP ####[facility] [address] [place], [place] [address]Dr. Nelson Pollock Anion gap [Moles/Vol] 15.5 mmol/L Normal [facility] Comment on above: Performed By: #### L IPA, HSTROPN, CMP ####[facility] [address] [place], [place] [address]Dr. Nelson Pollock AST [Catalytic activity/Vol] 53 U/L Critically high 15-37 [facility] Comment on above: Performed By: #### L IPA, HSTROPN, CMP ####[facility] [address] [place], [place] [address]Dr. Nelson Pollock Bilirubin [Mass/Vol] 2.4 mg/dL Critically high 0.2-1.3 [facility] Comment on above: Performed By: #### L IPA, HSTROPN, CMP ####[facility] [address] [place], [place] [address]Dr. Cloverkusum Pollock Calcium [Mass/Vol] 8.5 mg/dL Normal 8.5-10.1 [facility] Comment on above: Performed By: #### L IPA, HSTROPN, CMP ####[facility] [address] [place] [address]Dr. Nelson Pollock Chloride [Moles/Vol] 105 mmol/L Normal 98-107 [facility] Comment on above: Performed By: #### L IPA HSTROPN, CMP ####[facility] [address] [place], [place] [address]Dr. Nelson Pollock CO2 [Moles/Vol] 22.3 mmol/L Normal 22.0-30.0 [facility] Comment on above: Performed By: #### L IPA, HSTROPN, CMP ####[facility] [address] [place], [place] [address]Dr. Nelson Pollock Creatinine [Mass/Vol] 1.06 mg/dL Normal 0.66-1.25 [facility] Comment on above: Performed By: #### L IPA, HSTROPN, CMP ####[facility] [address] [place], [place] [address]Dr. Nelson Phill EGFR-AF FRENCH >60 Normal >=60 [facility] Comment on above: Performed By: #### L IPA, HSTROPN, CMP ####[facility] [address] [place], [place] [address]Dr. Nelson Pollock EGFR-NON AF FRENCH >60 Normal >=60 [facility] Comment on above: Performed By: #### L IPA, HSTROPN, CMP ####[facility] [address] [place], [place] [address]Dr. Nelson Pollock Globulin (S) [Mass/Vol] 3.4 g/dL Normal [facility] Comment on above: Performed By: #### L IPA, HSTROPN, CMP ####[facility] [address] [place] [address]Dr. Cloverkusum Pollock Glucose [Mass/Vol] 154 mg/dL Critically high 74-106 [facility] Comment on above: Performed By: #### L IPA, HSTROPN, CMP ####[facility] [address] [place], [place] [address]Dr. Nelson Pollock Potassium [Moles/Vol] 3.8 mmol/L Normal 3.4-5.0 [facility] Comment on above: Performed By: #### L IPA HSTROPN, CMP ####[facility] [address] [place] [address]Dr. Nelson Pollock Protein [Mass/Vol] 7.5 g/dL Normal 6.1-8.2 [facility] Comment on above: Performed By: #### L IPA HSTROPN, CMP ####[facility] [address] [place], [place] [address]Dr. Nelson Pollock Sodium [Moles/Vol] 139 mmol/L Normal 137-145 [facility] Comment on above: Performed By: #### L IPA HSTROPN, CMP ####[facility] [address] [place], [place] [address]Dr. Nelson Pollock Urea nitrogen [Mass/Vol] 25.0 mg/dL Critically high 7.0-18.0 [facility] Comment on above: Performed By: #### L IPA HSTROPN, CMP ####[facility] [address] [place], [place] [address]Dr. Nelson Pollock Urea nitrogen/Creatinine [Mass ratio] 23.6 mg/mg Normal [facility] Comment on above: Performed By: #### L IPA HSTROPN, CMP ####[facility] [address] [place], [place] [address]Dr. Nelson Pollock PROTIMEon 07-26-2021 INR Coag (PPP) [Relative time] 1.07 {INR} Normal [facility] Comment on above: Performed By: #### P TT, PT ####[facility] [address] [place], [place] [address]Dr. Nelson Pollock INR GUIDELINES SEE BELOW Normal [facility] Comment on above: Result Comment: ARTEM RED INR: 2.0 - 3.0 CONDITIONS NOT LISTED BELOW 2.5 - 3.5 FOR PROSTHETIC HEART VALVE REPLACEMENT 2.5 - 3.5 RECURRENT THROMBOSIS Performed By: #### P TT, PT ####[facility] [address] [place], [place] [address]Dr. Nelson Pollock PT Coag (PPP) [Time] 11.5 s Normal 9.0-11.6 [facility] Comment on above: Performed By: #### P TT, PT ####[facility] [address] [place] [address]Dr. Nelson Pollock PTTon 07-26-2021 aPTT Coag (Bld) [Time] 24.9 s Normal 22.3-36.2 [facility] Comment on above: Performed By: #### P TT, PT ####[facility] [address] [place] [address]Dr. Nelson Pollock TROPONIN, HIGH SENSITIVITYon 07-26-2021 HSTROP 38.6 pg/mL Normal 4.0-42.2 [facility] Comment on above: Result Comment: CUT- OFF POINTS HAVE BEEN ESTABLISHED BASED ON THE FOURTH UNIVERSAL DEFINITIONS OF MYOCARDIAL INFARCTION. THE UPPER REFERENCE LIMIT (URL) OF TROPONIN, DEFINED THE 99TH PERCENTILE OF cTnI DISTRIBUTION IN A REFERENCE POPULATION, HAS BEEN CONFIRMED THE DECISION THRESHOLD FOR [place] DIAGNOSIS. Performed By: #### L IPA, HSTROPN, CMP ####[facility] [address] [address]Dr. Nelson Pollock URINE MICROSCOPIC ONLYon BACTERIA MODERATE Abnormal NONE SEEN [facility] Comment on above: Performed By: #### Anny ZAMORA UMICRO #### [facility] [address] [place] [address] Dr. Nelson Pollock Bacteria identified Cx Nom (U) INDICATED Normal [facility] Comment on above: Performed By: #### Anny ZAMORA UMICRO #### [facility] [address] [place] [address] Dr. Nelson Pollock CAST NONE SEEN Normal NONE SEEN [facility] Comment on above: Performed By: #### Anny ZAMORA UMICRO #### [facility] [address] [place] [address] Dr. Nelson Pollock Crystals LM Nom (Urine sed) NONE SEEN Normal NONE SEEN [facility] Comment on above: Performed By: #### Anny ZAMORA UMICRO #### [facility] [address] [place] [address] Dr. Nelson Pollock Epithelial cells LM Ql (Urine sed) RARE Normal NONE SEEN /RARE [facility] Comment on above: Performed By: #### E DAT ZAMORARO #### [facility] [address] [place] [address] Dr. Nelson Pollock MUCOUS NONE SEEN Normal NONE SEEN [facility] Comment on above: Performed By: #### DAT DIALLORO #### [facility] [address] [address] [address] Nelson Pollock RBC 2-5 Abnormal 0-2 [facility] Comment on above: Performed By: #### E DAT ZAMORARO #### [facility] [address] [place] [address] Dr. Nelson Pollock WBC (U) [#/Vol] /uL Abnormal NONE SEEN [facility] Comment on above: Performed By: #### DAT DIALLORO #### [facility] [address] [place] [address] Dr. Nelson Pollock XR CHEST 1 Von [...] PERNELL SARMIENTO Date: 2021-07-26 16:40 Normal [facility] Basic Metabolic Panelon 02-2 Anion gap [Moles/Vol] 16 mmol/L Normal 12-20 [facility] [employer] Comment on above: Result Comment: Effe ctive 04/25/2019 reference range changed. Performed By: #### B MP #### [facility] [address] [place], [place] [id number] Calcium [Mass/Vol] 9.5 mg/dL Normal 8.6-10.2 Marcela [facility] [employer] Comment on above: Performed By: #### B MP #### [facility] [address] [place], [place] [id number] Chloride [Moles/Vol] 106 mmol/L Normal 98-107 [facility] Comment on above: Performed By: #### B MP #### [facility] [address] [place], [place] [id number] CO2 [Moles/Vol] 24 mmol/L Normal 20-31 [facility] Comment on above: Performed By: #### B MP #### [facility] [address] [place], [place] [id number] Creatinine [Mass/Vol] 0.9 mg/dL Normal 0.7-1.4 [facility] Comment on above: Performed By: #### B MP #### [facility] [address], [place] [id number] eGFRAA 100 mL/min/1.73m2 Normal >[address] [facility] Comment on above: Performed By: #### B MP #### [facility] [address], [place] [id number] eGFRNAA 83 mL/min/1.73m2 Normal >60 [facility] Comment on above: Performed By: #### B MP #### [facility] [address] [place], [place] [id number] Glucose [Mass/Vol] 85 mg/dL Normal 65-99 [facility] Comment on above: Result Comment: For FASTING Glucose --- ADA reference ranges: Normal 65-99 mg/dl Prediabetes 100-125 Diabetes >/= 126 Performed By: #### B MP #### [facility] [address], [place] [id number] Potassium [Moles/Vol] 4.1 mmol/L Normal 3.5-5.5 [facility] Comment on above: Performed By: #### B MP #### [facility] [address] [place], [place] [id number] Sodium [Moles/Vol] 142 mmol/L Normal 135-146 [facility] Comment on above: Performed By: #### B MP #### [facility] [address] [place], [place] [id number] Urea nitrogen [Mass/Vol] 16 mg/dL Normal 7-25 [facility] Comment on above: Performed By: #### B MP #### [facility] [address] [place], [place] [id number] CBC AUTO DIFFon 05-06-2021 BASO # 0.1 103/ul Normal 0.0-0.1 [facility] Comment on above: Performed By: #### C BC #### [facility] [address] [address] [address] Nelson Pollock Basophils/100 WBC (Bld) 0.8 % Normal 0.2-2.0 [facility] Comment on above: Performed By: #### C BC #### [facility] [address] [place] [address] Dr. Nelson Pollock EO # 0.3 103/ul Normal 0.0-0.7 [facility] Comment on above: Performed By: #### C BC #### [facility] [address] [place] [address] Dr. Nelson Pollock Eosinophils/100 WBC (Bld) 2.8 % Normal 0.9-7.0 [facility] Comment on above: Performed By: #### C BC #### [facility] [address] [place] [address] Dr. Nelson Pollock Erythrocyte distribution width (RBC) [Ratio] 13.2 % Normal 11.0-15.0 [facility] Comment on above: Performed By: #### C BC #### [facility] [address] [place] [address] Dr. Nelson Pollock Hematocrit (Bld) [Volume fraction] 45.8 % Normal 42.0-54.0 [facility] Comment on above: Performed By: #### C BC #### [facility] [address] [place] [address] Dr. Nelson Pollock Hemoglobin (Bld) [Mass/Vol] 15.6 g/dL Normal 14.0-18.0 [facility] Comment on above: Performed By: #### C BC #### [facility] [address] [place] [address] Dr. Nelson Pollock IG # 0.04 10e3/ul Critically high 0.00-0.03 [facility] Comment on above: Performed By: #### C BC #### [facility] [address] [place] [address] Dr. Nelson Pollock IG % 0.4 % Normal 0.0-0.5 [facility] Comment on above: Performed By: #### C BC #### [facility] [address] [place] [address] Dr. Nelson Pollock LYMPH # 3.1 103/ul Normal 1.2-3.8 [facility] Comment on above: Performed By: #### C BC #### [facility] [address] [place] [address] Dr. Nelson Pollock Lymphocytes/100 WBC (Bld) 27.2 % Normal 20.5-60.0 [facility] Comment on above: Performed By: #### C BC #### [facility] [address] [place] [address] Dr. Nelson Pollock MANUAL DIFF REQ NO Normal [facility] Comment on above: Performed By: #### C BC #### [facility] [address] [place] [address] Dr. Nelson Pollock MCH (RBC) [Entitic mass] 29.1 pg Normal 25.9-34.0 [facility] Comment on above: Performed By: #### C BC #### [facility] [address] [place] [address] Dr. Nelson Pollock MCHC (RBC) [Mass/Vol] 34.1 g/dL Normal 29.9-35.2 [facility] Comment on above: Performed By: #### C BC #### [facility] [address] [place] [address] Dr. Nelson Pollock MCV (RBC) [Entitic vol] 85.3 fL Normal 80.0-94.0 [facility] Comment on above: Performed By: #### C BC #### [facility] [address] [place] [address] Dr. Nelson Pollock MONO # 1.0 103/ul Critically high 0.3-0.8 [facility] Comment on above: Performed By: #### C BC #### [facility] [address] [address] [address] Nelson Pollock Monocytes/100 WBC (Bld) 9.0 % Normal 1.7-12.0 [facility] Comment on above: Performed By: #### C BC #### [facility] [address] [address] [address] Nelson Pollock NEUT # 6.8 103/ul Critically high 1.4-6.5 [facility] Comment on above: Performed By: #### C BC #### [facility] [address] [place] [address] Dr. Nelson Pollock Neutrophils/100 WBC (Bld) 59.8 % Normal 43.0-75.0 [facility] Comment on above: Performed By: #### C BC #### [facility] [address] [place] [address] Dr. Nelson Pollock Platelet mean volume (Bld) [Entitic vol] 10.3 fL Normal 9.5-13.5 [facility] Comment on above: Performed By: #### C BC #### [facility] [address] [place] [address] Dr. Nelson Pollock PLT 196 103/ul Normal 150-450 [facility] Comment on above: Performed By: #### C BC #### [facility] [address] [place] [address] Dr. Nelson Pollock RBC 5.37 106/ul Normal 4.70-6.10 [facility] Comment on above: Performed By: #### C BC #### [facility] [address] [place] [address] Dr. Nelson Pollock WBC 11.3 103/ul Critically high 4.0-11.0 [facility] Comment on above: Performed By: #### C BC #### [facility] [address] [place] [address] Dr. Nelson Pollock PROF CHEM 8 (BAS METB)on Anion gap [Moles/Vol] 10.8 mmol/L Normal [facility] Comment on above: Performed By: #### B MP, HSTROPN ####[facility] [address] [place] [address]Dr. Nelson Pollock Calcium [Mass/Vol] 8.8 mg/dL Normal 8.4-10.2 [facility] Comment on above: Performed By: #### B JOVANI, HSTROPN ####[facility] [address] [address]Dr. Nelson Pollock Chloride [Moles/Vol] 104 mmol/L Normal 98-107 [facility] Comment on above: Performed By: #### B JOVANI, HSTROPN ####[facility] [address] [place] [address]Dr. Nelson Pollock CO2 [Moles/Vol] 26.7 mmol/L Normal 22.0-30.0 [facility] Comment on above: Performed By: #### B JOVANI, HSTROPN ####[facility] [address] [place], [place] [address]Dr. Nelson Pollock Creatinine [Mass/Vol] 0.95 mg/dL Normal 0.66-1.25 [facility] Comment on above: Performed By: #### B JOVANI, HSTROPN ####[facility] [address] [place], [place] [address]Dr. Nelson Pollock EGFR-AF FRENCH >60 Normal >=60 [facility] Comment on above: Performed By: #### B JOVANI, HSTROPN ####[facility] [address] [place], [place] [address]Dr. Nelson Pollock EGFR-NON AF FRENCH >60 Normal >=60 [facility] Comment on above: Performed By: #### B JOVANI, HSTROPN ####[facility] [address] [place] [address]Dr. Nelson Pollock Glucose [Mass/Vol] 121 mg/dL Critically high 74-106 [facility] Comment on above: Performed By: #### B JOVANI, HSTROPN ####[facility] [id number] [address]Dr. Nelson Pollock Potassium [Moles/Vol] 3.5 mmol/L Normal 3.4-5.0 [facility] Comment on above: Performed By: #### B JOVANI, HSTROPN ####[facility] [id number] [id number]. Nelson Pollock Sodium [Moles/Vol] 138 mmol/L Normal 137-145 [facility] Comment on above: Performed By: #### B JOVANI, HSTROPN ####[facility] [id number] [id number]. Nelosn Pollock Urea nitrogen [Mass/Vol] 12.0 mg/dL Normal 9.0-20.0 [facility] Comment on above: Performed By: #### B JOVANI, HSTROPN ####[facility] [id number] [address]Dr. Nelson Pollock Urea nitrogen/Creatinine [Mass ratio] 12.6 mg/mg Normal [facility] Comment on above: Performed By: #### B JOVANI, HSTROPN ####[facility] [address] [address]Dr. Nelson Pollock TROPONIN, HIGH SENSITIVITYon 05-06-2021 HSTROP 41.0 pg/mL Normal 4.0-42.2 [facility] Comment on above: Result Comment: CUT- OFF POINTS HAVE BEEN ESTABLISHED BASED ON THE FOURTH UNIVERSAL DEFINITIONS OF MYOCARDIAL INFARCTION. THE UPPER REFERENCE LIMIT (URL) OF TROPONIN, DEFINED THE 99TH PERCENTILE OF cTnI DISTRIBUTION IN A REFERENCE POPULATION, HAS BEEN CONFIRMED THE DECISION THRESHOLD FOR [place] DIAGNOSIS. Performed By: #### B JOVANI, HSTROPN ####[facility] [id number] [id number]. Nelson Pollock XR CHEST 1 Von 05-06-2021 [...] CARLTON GALINDO Date: 2021-05-06 20:10 Normal [facility] BNPon 01-06-2021 Natriuretic peptide B (Bld) [Mass/Vol] 268.0 pg/mL Normal <=1,800.0 [facility] Comment on above: Performed By: #### B SENIOR PHARMACY TECHNICIAN #### [facility] [address] [place] [address] Dr. Nelson Pollock CBC AUTO DIFFon 01-06-2021 BASO # 0.1 103/ul Normal 0.0-0.1 [facility] Comment on above: Performed By: #### C BC #### [facility] [address] [place] [address] Dr. Nelson Pollock Basophils/100 WBC (Bld) 0.6 % Normal 0.2-2.0 [facility] Comment on above: Performed By: #### C BC #### [facility] [address] [place] [address] Dr. Nelson Pollock EO # 0.2 103/ul Normal 0.0-0.7 [facility] Comment on above: Performed By: #### C BC #### [facility] [address] [place] [address] Dr. Nelson Pollock Eosinophils/100 WBC (Bld) 1.6 % Normal 0.9-7.0 [facility] Comment on above: Performed By: #### C BC #### [facility] [address] [place] [address] Dr. Nelson Pollock Erythrocyte distribution width (RBC) [Ratio] 13.9 % Normal 11.0-15.0 [facility] Comment on above: Performed By: #### C BC #### [facility] [address] [place] [address] Dr. Nelson Pollock Hematocrit (Bld) [Volume fraction] 46.4 % Normal 42.0-54.0 [facility] Comment on above: Performed By: #### C BC #### [facility] [address] [place] [address] Dr. Nelson Pollock Hemoglobin (Bld) [Mass/Vol] 15.5 g/dL Normal 14.0-18.0 [facility] Comment on above: Performed By: #### C BC #### [facility] [address] [place] [address] Dr. Nelson Pollock IG # 0.04 10e3/ul Critically high 0.00-0.03 [facility] Comment on above: Performed By: #### C BC #### [facility] [address] [place] [address] Dr. Nelson Pollock IG % 0.4 % Normal 0.0-0.5 [facility] Comment on above: Performed By: #### C BC #### [facility] [address] [place] [address] Dr. Nelson Pollock LYMPH # 2.3 103/ul Normal 1.2-3.8 [facility] Comment on above: Performed By: #### C BC #### [facility] [address] [place] [address] Dr. Nelson Pollock Lymphocytes/100 WBC (Bld) 22.8 % Normal 20.5-60.0 [facility] Comment on above: Performed By: #### C BC #### [facility] [address] [place] [address] Dr. Nelson Pollock MANUAL DIFF REQ NO Normal [facility] Comment on above: Performed By: #### C BC #### [facility] [address] [place] [address] Dr. Nelson Pollock MCH (RBC) [Entitic mass] 28.3 pg Normal 25.9-34.0 [facility] Comment on above: Performed By: #### C BC #### [facility] [address] [place] [address] Dr. Nelson Pollock MCHC (RBC) [Mass/Vol] 33.4 g/dL Normal 29.9-35.2 [facility] Comment on above: Performed By: #### C BC #### [facility] [address] [place] [address] Dr. Nelson Pollock MCV (RBC) [Entitic vol] 84.7 fL Normal 80.0-94.0 [facility] Comment on above: Performed By: #### C BC #### [facility] [address] [address] [address] Nelson Pollock MONO # 0.8 103/ul Normal 0.3-0.8 [facility] Comment on above: Performed By: #### C BC #### [facility] [address] [address] [address] Nelson Pollock Monocytes/100 WBC (Bld) 8.0 % Normal 1.7-12.0 [facility] Comment on above: Performed By: #### C BC #### [facility] [address] [address] [address] Nelson Pollock NEUT # 6.8 103/ul Critically high 1.4-6.5 [facility] Comment on above: Performed By: #### C BC #### [facility] [address] [place] [address] Dr. Nelson Pollock Neutrophils/100 WBC (Bld) 66.6 % Normal 43.0-75.0 [facility] Comment on above: Performed By: #### C BC #### [facility] [address] [place] [address] Dr. Nelson Pollock Platelet mean volume (Bld) [Entitic vol] 10.6 fL Normal 9.5-13.5 [facility] Comment on above: Performed By: #### C BC #### [facility] [address] [place] [address] Dr. Nelson Pollock PLT 201 103/ul Normal 150-450 [facility] Comment on above: Performed By: #### C BC #### [facility] [address] [place] [address] Dr. Nelson Pollock RBC 5.48 106/ul Normal 4.70-6.10 [facility] Comment on above: Performed By: #### C BC #### [facility] [address] [place] [address] Dr. Nelson Pollock WBC 10.2 103/ul Normal 4.0-11.0 [facility] Comment on above: Performed By: #### C BC #### [facility] [address] [address] [address] Nelson Pollock PROF 14(COMP METB)on 021 Albumin [Mass/Vol] 3.8 g/dL Normal 3.5-5.0 [facility] Comment on above: Performed By: #### C MP, HSTROPN #### [facility] [address] [address] [address] Nelson Pollock Albumin/Globulin [Mass ratio] 1.2 {ratio} Normal [facility] Comment on above: Performed By: #### C MP, HSTROPN #### [facility] [address] [address] [address] Nelson Pollock ALP [Catalytic activity/Vol] 73 U/L Normal 38-126 [facility] Comment on above: Performed By: #### C MP, HSTROPN #### [facility] [address] [address] [address] Nelson Pollock ALT [Catalytic activity/Vol] 20 U/L Critically low 21-72 [facility] Comment on above: Performed By: #### C MP, HSTROPN #### [facility] [address] [address] [address] Nelson Pollock Anion gap [Moles/Vol] 11.0 mmol/L Normal [facility] Comment on above: Performed By: #### C MP, HSTROPN #### [facility] [address] [address] [address] Nelson Pollock AST [Catalytic activity/Vol] 18 U/L Normal 17-59 [facility] Comment on above: Performed By: #### C MP, HSTROPN #### [facility] [address] [address] [address] Nelson Pollock Bilirubin [Mass/Vol] 1.7 mg/dL Critically high 0.2-1.3 [facility] Comment on above: Performed By: #### C MP, HSTROPN #### [facility] [address] [address] [address] Nelson Pollock Calcium [Mass/Vol] 8.9 mg/dL Normal 8.4-10.2 [facility] Comment on above: Performed By: #### C MP, HSTROPN #### [facility] [address] [address] [address] Nelson Pollock Chloride [Moles/Vol] 105 mmol/L Normal 98-107 [facility] Comment on above: Performed By: #### C MP, HSTROPN #### [facility] [address] [place] [address] Dr. Nelson Pollock CO2 [Moles/Vol] 26.5 mmol/L Normal 22.0-30.0 [facility] Comment on above: Performed By: #### C MP, HSTROPN #### [facility] [address] [place] [address] Dr. Nelson Pollock Creatinine [Mass/Vol] 0.82 mg/dL Normal 0.66-1.25 [facility] Comment on above: Performed By: #### C JOVANI, HSTROPN #### [facility] [address] [place] [address] Dr. Nelson Pollock EGFR-AF FRENCH >60 Normal >=60 [facility] Comment on above: Performed By: #### C JOVANI, HSTROPN #### [facility] [address] [place] [address] Dr. Nelson Pollock EGFR-NON AF FRENCH >60 Normal >=60 [facility] Comment on above: Performed By: #### C MP, HSTROPN #### [facility] [address] [place] [address] Dr. Nelson Pollock Globulin (S) [Mass/Vol] 3.3 g/dL Normal [facility] Comment on above: Performed By: #### C MP, HSTROPN #### [facility] [address] [place] [address] Dr. Nelson Pollock Glucose [Mass/Vol] 87 mg/dL Normal 74-106 [facility] Comment on above: Performed By: #### C MP, HSTROPN #### [facility] [address] [place] [address] Dr. Nelson Pollock Potassium [Moles/Vol] 3.5 mmol/L Normal 3.4-5.0 [facility] Comment on above: Performed By: #### C JOVANI, HSTROPN #### [facility] [address] [address] [address] Nelson Pollock Protein [Mass/Vol] 7.1 g/dL Normal 6.1-8.2 [facility] Comment on above: Performed By: #### C JOVANI, HSTROPN #### [facility] [address] [address] [address] Nelson Pollock Sodium [Moles/Vol] 139 mmol/L Normal 137-145 [facility] Comment on above: Performed By: #### C JOVANI, HSTROPN #### [facility] [address] [place] [address] Dr. Nelson Pollock Urea nitrogen [Mass/Vol] 13.0 mg/dL Normal 9.0-20.0 [facility] Comment on above: Performed By: #### C JOVANI, HSTROPN #### [facility] [address] [place] [address] Dr. Nelson Pollock Urea nitrogen/Creatinine [Mass ratio] 15.9 mg/mg Normal [facility] Comment on above: Performed By: #### C JOVANI, HSTROPN #### [facility] [address] [place] [address] Dr. Nelson Pollock TROPONIN, HIGH SENSITIVITYon 01-06-2021 HSTROP 43.4 pg/mL Critically high 4.0-42.2 [facility] Comment on above: Result Comment: CUT- OFF POINTS HAVE BEEN ESTABLISHED BASED ON THE FOURTH UNIVERSAL DEFINITIONS OF MYOCARDIAL INFARCTION. THE UPPER REFERENCE LIMIT (URL) OF TROPONIN, DEFINED THE 99TH PERCENTILE OF cTnI DISTRIBUTION IN A REFERENCE POPULATION, HAS BEEN CONFIRMED THE DECISION THRESHOLD FOR [place] DIAGNOSIS. Performed By: #### C JOVANI, HSTROPN #### [facility] [address] [place] [address] Dr. Nelson Pollock XR CHEST 1 Von [...] JASKARAN CARRERA Date: 2021-01-06 11:24 Normal [facility] BASIC METABOLIC PANELon - Calcium [Mass/Vol] 8.5 mg/dL Low 8.6-10.3 [facility] Comment on above: Order Comment: No: D o not add to previous draw Performed By: #### 0 0071, [id number] #### [facility] [address] [place] [address], [facility] Chloride [Moles/Vol] 108 mmol/L High 98-107 [facility] Comment on above: Order Comment: No: D o not add to previous draw Performed By: #### 0 0071, 97741 #### [facility] [address] [place] [address], [place] CO2 [Moles/Vol] 27 mmol/L Normal 21-31 [facility] Comment on above: Order Comment: No: D o not add to previous draw Performed By: #### 0 0071, 06440 #### [facility] [address] [place] [address], [place] Creatinine [Mass/Vol] 0.89 mg/dL Normal 0.70-1.30 [facility] Comment on above: Order Comment: No: D o not add to previous draw Performed By: #### 0 0071, 53895 #### [facility] [address] [place] [address], [place] GFR/1.73 sq M predicted among blacks MDRD (S/P/Bld) [Vol rate/Area] mL/min/{1.73_m2} Normal >60 [facility] Comment on above: Order Comment: No: D o not add to previous draw Result Comment: Calc ulation may not be valid for patients over 70 years Performed By: #### 0 0071, 26111 #### [facility] [address] [place] [address], [place] GFR/1.73 sq M predicted among non-blacks MDRD (S/P/Bld) [Vol rate/Area] mL/min/{1.73_m2} Normal >60 [facility] Comment on above: Order Comment: No: D o not add to previous draw Result Comment: Calc ulation may not be valid for patients over 70 years Performed By: #### 0 0071, 66927 #### [facility] [address] [place] [address], [place] Glucose [Mass/Vol] 78 mg/dL Normal 70-100 [facility] Comment on above: Order Comment: No: D o not add to previous draw Performed By: #### 0 0071, 27459 #### [facility] [address] [place] [address], [place] Potassium [Moles/Vol] 4.0 mmol/L Normal 3.5-5.1 [facility] Comment on above: Order Comment: No: D o not add to previous draw Performed By: #### 0 0071, 92802 #### [facility] [address] [place] [address], [place] Sodium [Moles/Vol] 144 mmol/L Normal 136-145 [facility] Comment on above: Order Comment: No: D o not add to previous draw Performed By: #### 0 0071, 56135 #### [facility] [address] [place] [address], [place] Urea nitrogen [Mass/Vol] 21 mg/dL Normal 7-25 [facility] Comment on above: Order Comment: No: D o not add to previous draw Performed By: #### 0 0071, 97224 #### [facility] [address] [place] [address], [place] Calcium [Mass/Vol] 8.3 mg/dL Low 8.6-10.3 [facility] Comment on above: Performed By: #### 0 0071, 04924, 07058 #### [facility] [address] [place] [address], [place] Chloride [Moles/Vol] 108 mmol/L High 98-107 [facility] Comment on above: Performed By: #### 0 0071, 07558, 96760 #### [facility] [address] [place] [address], [place] CO2 [Moles/Vol] 24 mmol/L Normal 21-31 [facility] Comment on above: Performed By: #### 0 0071, 67307, 79752 #### [facility] [address] [place] [address], [place] Creatinine [Mass/Vol] 0.90 mg/dL Normal 0.70-1.30 [facility] Comment on above: Performed By: #### 0 0071, 86440, 16025 #### [facility] [address] [place] [address], [place] GFR/1.73 sq M predicted among blacks MDRD (S/P/Bld) [Vol rate/Area] mL/min/{1.73_m2} Normal >60 [facility] Comment on above: Result Comment: Calc ulation may not be valid for patients over 70 years Performed By: #### 0 0071, 76230, 10302 #### [facility] [address] [place] [address], [place] GFR/1.73 sq M predicted among non-blacks MDRD (S/P/Bld) [Vol rate/Area] mL/min/{1.73_m2} Normal >60 [facility] Comment on above: Result Comment: Calc ulation may not be valid for patients over 70 years Performed By: #### 0 0071, 84763, 95590 #### [facility] [address] [place] [address], [place] Glucose [Mass/Vol] 101 mg/dL High 70-100 [facility] Comment on above: Performed By: #### 0 0071, 36776, 97648 #### [facility] [address] [place] [address], [place] Potassium [Moles/Vol] 3.5 mmol/L Normal 3.5-5.1 [facility] Comment on above: Performed By: #### 0 0071, 64491, 84700 #### [facility] [address] [place] [address], [place] Sodium [Moles/Vol] 141 mmol/L Normal 136-145 [facility] Comment on above: Performed By: #### 0 0071, 78524, 53265 #### [facility] [address] [place] [address], [place] Urea nitrogen [Mass/Vol] 24 mg/dL Normal 7-25 [facility] Comment on above: Performed By: #### 0 0071, 56425, 90612 #### [facility] [address] [place] [address], [place] CBC COMPLETE BLOOD COUNTon 0 - Erythrocyte distribution width (RBC) [Ratio] 13.8 % Normal 11.5-15.0 [facility] Comment on above: Order Comment: No: D o not add to previous draw Performed By: #### 5 0608 #### [facility] [address] [place] [address], [place] Hematocrit (Bld) [Volume fraction] 37.7 % Low 39.0-50.0 [facility] Comment on above: Order Comment: No: D o not add to previous draw Performed By: #### 5 0608 #### [facility] [address] [place] [address], [place] Hemoglobin (Bld) [Mass/Vol] 12.9 g/dL Low 13.0-17.0 [facility] Comment on above: Order Comment: No: D o not add to previous draw Performed By: #### 5 0608 #### [facility] [address] [facility]. [address] MCH (RBC) [Entitic mass] 29.1 pg Normal 27.0-33.0 [facility] Comment on above: Order Comment: No: D o not add to previous draw Performed By: #### 5 0608 #### [facility] [address] [facility]. [address] MCHC (RBC) [Mass/Vol] 34.2 g/dL Normal 32.0-35.0 [facility] Comment on above: Order Comment: No: D o not add to previous draw Performed By: #### 5 0608 #### [facility] [address] [facility] [place] [address], [facility] MCV (RBC) [Entitic vol] 85.1 fL Normal 82.0-98.0 [facility] Comment on above: Order Comment: No: D o not add to previous draw Performed By: #### 5 0608 #### [facility] [address] Nucleated RBC/100 WBC (Bld) [Ratio] 0 % Normal 0-0 [facility] Comment on above: Order Comment: No: D o not add to previous draw Performed By: #### 5 0608 #### [facility] [address] [place] [address], [facility] PLAT CNT 198 10*3/uL Normal 150-400 [facility] Comment on above: Order Comment: No: D o not add to previous draw Performed By: #### 5 0608 #### [facility] [address] [place] [address], [facility] RBC (Bld) [#/Vol] 4.43 10*6/uL Normal 4.20-5.70 [facility] Comment on above: Order Comment: No: D o not add to previous draw Performed By: #### 5 0608 #### [facility] [address] [place] [address], [facility] WBC (Bld) [#/Vol] 10.40 10*3/uL Normal 4.00-10.60 [facility] Comment on above: Order Comment: No: D o not add to previous draw Performed By: #### 5 0608 #### [facility] [address] [facility] [place] [address], [facility] LIPID PROFILEon 07-02-2020 Cholesterol [Mass/Vol] 119 mg/dL Low 120-200 [facility] Comment on above: Result Comment: CHOL ESTEROL REFERENCE RANGE: 20 YEARS AND OLDER CARDIOVASCULAR RISK Less than 200 mg/dl Low Risk 200 to 239 mg/dl Borderline Risk 240 mg/dl and greater High Risk Performed By: #### 0 0071, 89769, 63747 #### [facility] [address] [facility] [place] [address], [facility] Cholesterol in HDL [Mass/Vol] 37 mg/dL Normal 23-92 [facility] Comment on above: Result Comment: Slig ht variation in normal range could be due to gender and/or age. HDL CHOLESTEROL REFERENCE RANGE: 20 years and older Cardiovascular Risk > or =60 mg/dL Desirable 40 TO 59 mg/dL Low Risk <40 mg/dL High Risk Performed By: #### 0 0071, 16981, 60712 #### [facility] [address] [facility] [place] [address], [place] Cholesterol in LDL [Mass/Vol] 68 mg/dL Normal 0-130 [facility] Comment on above: Result Comment: LDL IS A CALCULATION LDL IS ONLY VALID IF THE TRIG IS LESS THAN 400. Performed By: #### 0 0071, 31822, 83409 #### [facility] [address] [place] [address], [place] Cholesterol.total/C holesterol in HDL [Mass ratio] 3.2 {ratio} Normal 0.0-4.5 [facility] Comment on above: Performed By: #### 0 0071, 27293, 04597 #### [facility] [address] [place] [address], [facility] NON-HDL CHOLESTEROL 82 mg/dL Normal [facility] Comment on above: Performed By: #### 0 0071, 16105, 47017 #### [facility] [address] Triglyceride [Mass/Vol] 71 mg/dL Normal 40-149 [facility] Comment on above: Result Comment: TRIG LYCERIDE REFERENCE RANGE: 20 YEARS AND OLDER CARDIOVASCULAR RISK LESS THAN 150 mg/dl LOW RISK 150 TO 199 mg/dl BORDERLINE RISK 200 mg/dl AND GREATER HIGH RISK Performed By: #### 0 0071, 42503, 21813 #### [facility] [address] [facility] [place] [address], [facility] VLDL CHOL 14 mg/dL Normal 0-40 [facility] Comment on above: Performed By: #### 0 0071, 69881, 68023 #### [facility] [address] [facility] [place] [address], [facility] MAGNESIUM BLOODon 07-02-2020 Magnesium [Mass/Vol] 1.5 mg/dL Low 1.9-2.7 [facility] Comment on above: Order Comment: No: D o not add to previous draw Performed By: #### 0 0071, 45767 #### [facility] [address] [place] [address], [facility] Magnesium [Mass/Vol] 1.3 mg/dL Low 1.9-2.7 [facility] Comment on above: Performed By: #### 1 0070, 00020 #### [facility] [address] [place] [address], [facility] TROPONIN-Ion 07-02-2020 Troponin I.cardiac [Mass/Vol] 0.03 ng/mL Normal 0.00-0.04 [facility] Comment on above: Order Comment: No: D o not add to previous draw Result Comment: REFE RENCE RANGES: 0.00 - 0.04 ng/ml NORMAL 0.05 - 0.50 ng/ml INDETERMINATE > 0.50 ng/ml CONSISTENT WITH AN M.I. Performed By: #### 0 0071, 03786, 22349 #### [facility] [address] Troponin I.cardiac [Mass/Vol] 0.03 ng/mL Normal 0.00-0.04 [facility] Comment on above: Order Comment: No: D o not add to previous draw Result Comment: REFE RENCE RANGES: 0.00 - 0.04 ng/ml NORMAL 0.05 - 0.50 ng/ml INDETERMINATE > 0.50 ng/ml CONSISTENT WITH AN M.I. Performed By: #### 1 0070, 34660 #### [facility] [address] [facility] HEPARIN ASSAYon 07-03-19 21 UNFRACTIONATED HEPARIN 0.63 IU/mL Normal 0.30-0.70 [facility] Comment on above: Result Comment: [place] roxaban and Apixaban will interfere with the anti Xa assay used to monitor UFH and LMWH. Performed By: #### 5 [id number] #### [facility] [address] UNFRACTIONATED HEPARIN 0.48 IU/mL Normal 0.30-0.70 [facility] Comment on above: Order Comment: No: D o not add to previous draw Result Comment: [place] roxaban and Apixaban will interfere with the anti Xa assay used to monitor UFH and LMWH. Performed By: #### 5 [id number] #### [facility] [address] [place] [address], [facility] UNFRACTIONATED HEPARIN 0.34 IU/mL Normal 0.30-0.70 [facility] Comment on above: Result Comment: [place] roxaban and Apixaban will interfere with the anti Xa assay used to monitor UFH and LMWH. Performed By: #### 5 [id number] #### [facility] [address] APTTon 07-01-2020 aPTT Coag (Bld) [Time] 39.8 s High 25.0-35.0 [facility] Comment on above: Order Comment: No: [...] PURPOSE. Performed By: #### 5 [id number] #### [facility] [address] [facility] [place] [address], [facility] BASIC METABOLIC PANELon 06-18 Calcium [Mass/Vol] 8.6 mg/dL Normal 8.6-10.3 [facility] Comment on above: Order Comment: No: D o not add to previous draw Performed By: #### 5 [id number] #### [facility] [address] [facility] [place] [address], [facility] Chloride [Moles/Vol] 104 mmol/L Normal 98-107 [facility] Comment on above: Order Comment: No: D o not add to previous draw Performed By: #### 5 [id number] #### [facility] [address] [facility] [place] [id number], [facility] CO2 [Moles/Vol] 27 mmol/L Normal 21-31 [facility] Comment on above: Order Comment: No: D o not add to previous draw Performed By: #### 5 [id number] #### [facility] [address] [place] [address], [facility] Creatinine [Mass/Vol] 0.99 mg/dL Normal 0.70-1.30 [facility] Comment on above: Order Comment: No: D o not add to previous draw Performed By: #### 5 [id number] #### [facility] [address] [place] [address], [place] GFR/1.73 sq M predicted among blacks MDRD (S/P/Bld) [Vol rate/Area] mL/min/{1.73_m2} Normal >60 [facility] Comment on above: Order Comment: No: D o not add to previous draw Result Comment: Calc ulation may not be valid for patients over 70 years Performed By: #### 5 [id number] #### [facility] [address] [place] [address], [place] GFR/1.73 sq M predicted among non-blacks MDRD (S/P/Bld) [Vol rate/Area] mL/min/{1.73_m2} Normal >60 [facility] Comment on above: Order Comment: No: D o not add to previous draw Result Comment: Calc ulation may not be valid for patients over 70 years Performed By: #### 5 [id number] #### [facility] [address] [place] [address], [place] Glucose [Mass/Vol] 126 mg/dL High 70-100 [facility] Comment on above: Order Comment: No: D o not add to previous draw Performed By: #### 5 [id number] #### [facility] [address] [place] [address], [place] Potassium [Moles/Vol] 2.9 mmol/L Low 3.5-5.1 [facility] Comment on above: Order Comment: No: D o not add to previous draw Performed By: #### 5 [id number] #### [facility] [address] [place] [address], [place] Sodium [Moles/Vol] 141 mmol/L Normal 136-145 [facility] Comment on above: Order Comment: No: D o not add to previous draw Performed By: #### 5 [id number] #### [facility] [address] Urea nitrogen [Mass/Vol] 25 mg/dL Normal 7-25 [facility] Comment on above: Order Comment: No: D o not add to previous draw Performed By: #### 5 [id number] #### [facility] [address] [place] [address], [facility] CBC COMPLETE BLOOD COUNTon 0 07-01-2020 Erythrocyte distribution width (RBC) [Ratio] 13.7 % Normal 11.5-15.0 [facility] Comment on above: Order Comment: No: D o not add to previous draw Performed By: #### 5 [id number] #### [facility] [address] [facility] [place] [address], [facility] Hematocrit (Bld) [Volume fraction] 39.8 % Normal 39.0-50.0 [facility] Comment on above: Order Comment: No: D o not add to previous draw Performed By: #### 5 [id number] #### [facility] [address] [facility] [place] [address], [facility] Hemoglobin (Bld) [Mass/Vol] 13.7 g/dL Normal 13.0-17.0 [facility] Comment on above: Order Comment: No: D o not add to previous draw Performed By: #### 5 [id number] #### [facility] [address] [facility] [place] [address], [facility] MCH (RBC) [Entitic mass] 28.7 pg Normal 27.0-33.0 [facility] Comment on above: Order Comment: No: D o not add to previous draw Performed By: #### 5 [id number] #### [facility] [address] [place] [id number], [facility] MCHC (RBC) [Mass/Vol] 34.4 g/dL Normal 32.0-35.0 [facility] Comment on above: Order Comment: No: D o not add to previous draw Performed By: #### 5 [id number] #### [facility] [address] [place] [address], [facility] MCV (RBC) [Entitic vol] 83.3 fL Normal 82.0-98.0 [facility] Comment on above: Order Comment: No: D o not add to previous draw Performed By: #### 5 [id number] #### [facility] [address] [place] [address], [facility] Nucleated RBC/100 WBC (Bld) [Ratio] 0 % Normal 0-0 [facility] Comment on above: Order Comment: No: D o not add to previous draw Performed By: #### 5 [id number] #### [facility] [address] [facility] [place] [place] [address], [facility] PLAT CNT 184 10*3/uL Normal 150-400 [facility] Comment on above: Order Comment: No: D o not add to previous draw Performed By: #### 5 [id number] #### [facility] [address] [place] [address], [facility] RBC (Bld) [#/Vol] 4.78 10*6/uL Normal 4.20-5.70 [facility] Comment on above: Order Comment: No: D o not add to previous draw Performed By: #### 5 [id number] #### [facility] [address] [place] [address], [facility] WBC (Bld) [#/Vol] 9.34 10*3/uL Normal 4.00-10.60 [facility] Comment on above: Order Comment: No: D o not add to previous draw Performed By: #### 5 [id number] #### [facility] [address] [place] [address], [facility] PROTHROMBIN TIMEon 1 INR Coag (PPP) [Relative time] 1.12 {INR} Normal 0.91-1.16 [facility] Comment on above: Order Comment: No: D o not add to previous draw Result Comment: ACCC P RECOMMENDED INR FOR WARFARIN THERAPY ------ [...] 1995;108:[id number]-246S. Performed By: #### 5 [id number] #### [facility] [address] PT Coag (PPP) [Time] 14.4 s Normal 12.3-14.[address] [facility] Comment on above: Order Comment: No: D o not add to previous draw Result Comment: ALL RESULTS MUST BE INTERPRETED WITH RESPECT TO BLOOD DRAWING ARTIFACT OR DILUTION ERROR OF ANTICOAGULANT AT THE TIME OF SAMPLING. Performed By: #### 5 [id number] #### [facility] [address] TROPONIN-Ion 07-01-2020 Troponin I.cardiac [Mass/Vol] 0.02 ng/mL Normal 0.00-0.04 [facility] Comment on above: Order Comment: No: D o not add to previous draw Result Comment: REFE RENCE RANGES: 0.00 - 0.04 ng/ml NORMAL 0.05 - 0.50 ng/ml INDETERMINATE > 0.50 ng/ml CONSISTENT WITH AN M.I. Performed By: #### 5 [id number] #### [facility] [address] UFH HEPARIN ASSAYon 03-14-20 21 UNFRACTIONATED HEPARIN <0.10 Critically low 0.30-0.70 [facility] Comment on above: Result Comment: [place] roxaban and Apixaban will interfere with the anti Xa assay used to monitor UFH and LMWH. RESULTS CHECKED AND CALLED. ACCURATELY READ BACK BY Jesus Manuel Velez RN at 2142. Performed By: #### 5 [id number] #### [facility] [address] [facility] Vital Signs Date Time Vital Sign Value Performing Clinician Facility 09-02-2024 10:53-0400 Hourly Rounding [facility] 09-02-2024 10:53-0400 Promise to Return [facility] 09-02-2024 09:00-0400 Hourly Rounding [facility] 09-02-2024 09:00-0400 Promise to Return [facility] 09-02-2024 08:50-0400 Hourly Rounding [facility] 09-02-2024 08:50-0400 Promise to Return [facility] 09-02-2024 08:34-0400 Heart rate 87 /min [facility] 09-02-2024 08:34-0400 SaO2% (BldA) [Mass fraction] 98 % [facility] 09-02-2024 08:32-0400 Body temperature 98.42 [degF] [facility] 09-02-2024 08:32-0400 Diastolic blood pressure 70 mm[Hg] [facility] 09-02-2024 08:32-0400 Mean blood pressure 87 mm[Hg] [facility] 09-02-2024 08:32-0400 Systolic blood pressure 121 mm[Hg] [facility] 09-02-2024 04:06-0400 Blood Pressure Location [facility] 09-02-2024 04:06-0400 Body temperature 98.06 [degF] [facility] 09-02-2024 04:06-0400 Diastolic blood pressure 74 mm[Hg] [facility] 09-02-2024 04:06-0400 Heart rate 83 /min [facility] 09-02-2024 04:06-0400 Mean blood pressure 91 mm[Hg] [facility] 09-02-2024 04:06-0400 Respiratory rate 18 /min [facility] 09-02-2024 04:06-0400 SaO2% (BldA) [Mass fraction] 96 % [facility] 09-02-2024 04:06-0400 Systolic blood pressure 126 mm[Hg] [facility] 09-01-2024 23:45-0400 Blood Pressure Location [facility] 09-01-2024 23:45-0400 Body temperature 97.7 [degF] [facility] 09-01-2024 23:45-0400 Diastolic blood pressure 67 mm[Hg] [facility] 09-01-2024 23:45-0400 Heart rate 80 /min [facility] 09-01-2024 23:45-0400 Mean blood pressure 89 mm[Hg] [facility] 09-01-2024 23:45-0400 Respiratory rate 16 /min [facility] 09-01-2024 23:45-0400 SaO2% (BldA) [Mass fraction] 99 % [facility] 09-01-2024 23:45-0400 Systolic blood pressure 132 mm[Hg] [facility] 09-01-2024 21:09-0400 Blood Pressure Location [facility] 09-01-2024 21:09-0400 Body temperature 97.34 [degF] [facility] 09-01-2024 21:09-0400 Mean blood pressure 93 mm[Hg] [facility] 09-01-2024 21:09-0400 Respiratory rate 18 /min [facility] 09-01-2024 18:00-0400 Body temperature 98.06 [degF] [facility] 09-01-2024 12:15-0400 Body temperature 98.24 [degF] [facility] 09-01-2024 11:59-0400 Body temperature 98.42 [degF] [facility] 09-01-2024 11:55-0400 Respiratory rate 20 /min [facility] 09-01-2024 11:48-0400 Respiratory rate 20 /min [facility] 09-01-2024 10:17-0400 Heart rate 80 /min [facility] 09-01-2024 09:11-0400 Heart rate 78 /min [facility] 09-01-2024 08:05-0400 Heart rate 75 /min [facility] 05-04-2024 08:25-0500 Body height 162.6 cm Debbi Murcia SENIOR PHARMACY TECHNICIAN Work Phone: [facility] 05-04-2024 08:25-0500 Body mass index (BMI) [Ratio] 26.33 kg/m2 Debbi Murcia SENIOR PHARMACY TECHNICIAN Work Phone: [facility] 05-04-2024 08:25-0500 Body weight 69.58 kg Debbi Murcia SENIOR PHARMACY TECHNICIAN Work Phone: [facility] 05-04-2024 08:25-0500 Diastolic blood pressure 80 mm[Hg] Debbi Murcia SENIOR PHARMACY TECHNICIAN Work Phone: [facility] 05-04-2024 08:25-0500 Heart rate 88 /min Debbi Murcia SENIOR PHARMACY TECHNICIAN Work Phone: [facility] 05-04-2024 08:25-0500 Respiratory rate 17 /min Debbi Murcia SENIOR PHARMACY TECHNICIAN Work Phone: [facility] 05-04-2024 08:25-0500 SaO2% (BldA) [Mass fraction] 97 % Debbi Murcia SENIOR PHARMACY TECHNICIAN Work Phone: [facility] 05-04-2024 08:25-0500 Systolic blood pressure 128 mm[Hg] Debbi Murcia SENIOR PHARMACY TECHNICIAN Work Phone: [facility] 01-13-2024 08:33-0400 Body height 162.6 cm Scott Tai MD Work Phone: [facility] 01-13-2024 08:33-0400 Body mass index (BMI) [Ratio] 25.92 kg/m2 Scott Tai MD Work Phone: [facility] 01-13-2024 08:33-0400 Body weight 68.49 kg Scott Tai MD Work Phone: [facility] 01-13-2024 08:33-0400 Diastolic blood pressure 66 mm[Hg] Scott Tai MD Work Phone: [facility] 01-13-2024 08:33-0400 Heart rate 76 /min Scott Tai MD Work Phone: [facility] 01-13-2024 08:33-0400 SaO2% (BldA) [Mass fraction] 96 % Scott Tai MD Work Phone: [facility] 01-13-2024 08:33-0400 Systolic blood pressure 128 mm[Hg] Scott Tai MD Work Phone: [facility] 05-27-2023 15:13-0500 Body height 162.6 cm Scott Tai MD Work Phone: [facility] 05-27-2023 15:13-0500 Body mass index (BMI) [Ratio] 26.61 kg/m2 Scott Tai MD Work Phone: [facility] 05-27-2023 15:13-0500 Body weight 70.31 kg Scott Tai MD Work Phone: [facility] 05-27-2023 15:13-0500 Diastolic blood pressure 84 mm[Hg] Scott Tai MD Work Phone: [facility] 05-27-2023 15:13-0500 Heart rate 72 /min Scott Tai MD Work Phone: [facility] 05-27-2023 15:13-0500 SaO2% (BldA) [Mass fraction] 96 % Scott Tai MD Work Phone: [facility] 05-27-2023 15:13-0500 Systolic blood pressure 138 mm[Hg] Scott Tai MD Work Phone: [facility] Encounters Encounter Date Encounter Type Care Provider Facility Start: 10-05-2024 End: 10-05-2024 Clinisync Result Encounter Generic External Data Provider [facility] Unsolicited Start: 10-05-2024 End: 10-05-2024 Clinisync Result Encounter Generic External Data Provider [facility] Unsolicited Start: 09-30-2024 End: 09-30-2024 ambulatory Jazmin White Facility:[facility] Start: 09-30-2024 End: 09-30-2024 Patient encounter procedure [facility] Cindy [facility] Start: 09-29-2024 ambulatory Candi Marcanovidya Facilit y:[facility] Start: 09-05-2024 End: 09-05-2024 Clinisync Result Encounter Generic External Data Provider [facility] Unsolicited Start: 09-05-2024 End: 09-05-2024 Clinisync Result Encounter Generic External Data Provider [facility] Unsolicited Start: 09-05-2024 End: 09-05-2024 ambulatory [facility] Start: 08-31-2024 End: 09-02-2024 Evaluation and management of inpatient Nicole Ojeda [place] Start: 08-31-2024 End: 09-02-2024 [facility] Start: 05-04-2024 End: 05-04-2024 Bamboo flowsheet Debbi Murcia SENIOR PHARMACY TECHNICIAN Work Phone: [facility] Start: 05-04-2024 End: 05-04-2024 Bamboo flowsheet Debbi Murcia SENIOR PHARMACY TECHNICIAN Work Phone: [facility] Start: 05-04-2024 End: 05-04-2024 Assay of hemosiderin, quant Debbi Murcia SENIOR PHARMACY TECHNICIAN Work Phone: [facility] Work Phone: Start: 05-04-2024 End: 05-04-2024 Patient encounter procedure Debbi Murcia NP Work Phone: [facility] Comment on above: Routine general medi mercy examination at [facility] facility (Primary Dx); Other chronic pancreatitis (CMS/HCC); Chronic systolic (congestive) heart failure (CMS/HCC); Unspecified systolic (congestive) heart failure (CMS/HCC); Chronic kidney disease, stage 3a (HCC) (CMS/HCC); Carpal tunnel syndrome of right wrist; Atherosclerosis of [place] coronary artery of [place] heart without angina pectoris (CMS/HCC); Atrial enlargement, [...] Department Unsolicited Start: 03-22-2024 End: 03-22-2024 ambulatory [facility] Start: 01-13-2024 End: 01-13-2024 Bamboo flowsheet Scott [...] Dx); ACP (advance care planning); Atherosclerosis of [place] coronary artery of [place] heart without angina pectoris (CMS/HCC); Atrial enlargement, [...] 01-13-2024 ambulatory SCOTT TAI Not Available Start: 09-16-2023 End: 09-16-2023 ambulatory SCOTT TAI [...] failure), NYHA class 2 (CMS/HCC); Atherosclerosis of [place] coronary artery of [place] heart without angina pectoris (CMS/HCC); Right cervical radiculopathy Start: 05-27-2023 End: 05-27-2023 ambulatory SCOTT TAI Not Available Start: 05-27-2023 Bamboo flowsheet Scott salguero MD Work Phone: [facility] Start: 05-27-2023 Bamboo flowsheet Scott salguero MD Work Phone: [facility] Start: 04-22-2022 End: 04-22-2022 ambulatory Driss Smith Other [employer] Other Start: 04-22-2022 Telephone encounter Driss álvarez [facility] Start: 12-19-2021 End: 12-19-2021 ambulatory Driss Smith Other [employer] Other Start: 12-19-2021 Telephone encounter Driss álvarez [...] Date Procedure Procedure Detail Performing Clinician Start: 10-05-2024 ALL BASIC METABOLIC PANEL Generic [employer] al Data Provider Start: 09-05-2024 ALL CBC WITH AUTO DIFF Generic External Data Provider Start: 09-01-2024 Esophagogastroduodenoscopy Jazmin nice Start: 03-30-2024 ALL BASIC METABOLIC PANEL Generic [employer] al Data Provider Start: 10-23-2022 History of coronary artery bypass grafting History of coronary artery bypass graft Scott Tai MD Work Phone: Start: 07-02-2020 MEASUREMENT OF CARDIAC TOTAL ACTIVITY, EXTERNAL APPROACH BINDU ZAIDI Start: 07-02-2020 ULTRASONOGRAPHY OF RIGHT AND LEFT HEART, TRANSESOPHAGEAL SAMER Tian ZAIDI History of coronary artery bypass grafting History of coronary artery bypass graft Debbi Murcia SENIOR PHARMACY TECHNICIAN Work Phone: Plan of Treatment Date Care Activity Detail Author Start: 05-04-2025 Medicare Annual Wellness (AWV) Medicare Annual Wellness (AWV) [facility] Start: 05-04-2025 End: 05-04-2025 Patient encounter procedure 05/04/2025 8:30 AM EST Office Visit [facility] [address] [facility] [address] [place] [id number] Scott Tai MD [address] [facility] [address] [place] [address] [facility] Start: 01-12-2025 Medicare Annual [...] Comprehensive metabolic panel Lab Routine Atherosclerosis of [place] coronary artery of [place] heart without angina pectoris (CMS/HCC) Stage 3a chronic kidney disease (HCC) ([facility]/HCC) Expected: 01/13/2024 (Approximate), Expires: 01/12/2025 [facility] Comment on above: Expected: 01/13/2024 (Approximate), Expires: 01/12/2025 Start: 01-13-2024 End: 01-12-2025 Lipid 1996 panel - Serum or Plasma Lipid panel Lab Routine Atherosclerosis [place] coronary artery of [place] heart without angina pectoris ([facility]/HCC) Mixed hyperlipidemia ([facility]/HCC) Expected: 01/13/2024 (Approximate), Expires: 01/12/2025 [facility] Comment on above: Expected: 01/13/2024 (Approximate), Expires: 01/12/2025 Start: 01-13-2024 End: 01-13-2024 Patient encounter procedure 01/13/2024 8:30 AM EDT Office Visit [facility] [address] [facility] [address] [place] [address] Scott Tai MD [address] [facility] [address] [place] [address] Arrived [facility] Comment on above: Arrived Start: 01-09-2024 Medicare Annual Wellness (AWV) Medicare Annual Wellness (AWV) [facility] Start: 09-16-2023 End: 09-16-2023 Patient encounter procedure 09/16/2023 8:30 AM EDT Office Visit [facility] [address] [place] [address] [place] [address] Scott Tai MD [address] [place] [address] [place] [address] [facility] Start: 07-03-2023 End: 07-03-2023 Patient encounter procedure 07/03/2023 9:30 AM EDT Office Visit [facility] [address] [place] [address] [place] [address] Scott Tai MD [address] [place] [address] [place] [address] [facility] Start: 05-27-2023 End: 05-27-2023 Patient encounter procedure 05/27/2023 3:30 PM EST Office Visit [facility] [address] [facility] [address] [place] [id number] Scott Tai MD [address] [facility] [address] [place] [address] Arrived [facility] Comment on above: Arrived CBC W Auto Different ial panel - Blood CBC and differential Lab Routine Atherosclerosis [place] coronary artery of [place] heart without angina pectoris ([facility]/HCC) Stage 3a chronic kidney disease (HCC) ([facility]/HCC) Ordered: 01/13/2024 [facility] Work Phone: Comment on above: Ordered: 01/13/2024 Immunizations Immunization Date Immunization Notes Care Provider Fa cility 05-21-2018 zoster vaccine recombinant Scott Tai MD Work Phone: [facility] 10-13-2017 tetanus toxoid, redu zuleika diphtheria toxoid, and acellular pertussis vaccine, adsorbed Scott Tai MD Work Phone: [facility] 10-28-2012 zoster vaccine, live Scott Tai MD Work Phone: [facility] Payers Date Payer Category Payer Unknown 2024 Unknown [id number] 2017 Medicare [id number] 2017 Medicare (Managed Care) [employer] [id number] 1959 Unknown [id number] 1942 Unknown [id number] 2.16.840.1.173810.3.579. 2.647 1942 Unknown [id number] 2.16.840.1.611201.3.579. 2.647 1942 Unknown [id number] 2.16.840.1.894925.3.579. 2.593 1942 Unknown [id number] 2.16.840.1.499905.3.579. 2.593 1942 Unknown [id number] 2.16.840.1.615768.3.579. 2.593 1942 Unknown [id number] 2.16.840.1.088173.3.579. 2.1259 1942 Unknown [id number] 2.16.840.1.282552.3.579. 2.1259 1942 Unknown [id number] 2.16.840.1.492084.3.579. 2.1259 1942 Unknown [id number] 2.16.840.1.519393.3.579. 2.1259 1942 Unknown [id number] 2.16.840.1.808389.3.579. 2.1259 1942 Unknown [id number] 2.16.840.1.798992.3.579. 2.1259 1942 Unknown [id number] 2.16.840.1.602858.3.579. 2.727 1942 Unknown [id number] 2.16.840.1.205767.3.579. 2.727 1942 Unknown [id number] 2.16.840.1.000742.3.579. 2.727 1942 Unknown [id number] 2.16.840.1.486841.3.579. 2.727 1942 Unknown [id number] 2.16.840.1.632756.3.579. 2.727 1942 Unknown [id number] 2.16.840.1.270237.3.579. 2 1942 Unknown [id number] 2.16.840.1.912095.3.579. 2 1942 Unknown [id number] 2.16.840.1.306059.3.579. 2 1942 Unknown [id number] 2.16.840.1.913559.3.579. 272 1942 Unknown [id number] 2.16.840.1.468253.3.579. 2.72 Social History Date Type Detail Facility Start: 12-02-2022 End: 05-04-2024 Sex Assigned At [employer] Other Start: 10-23-2022 End: 09-30-2024 Tobacco smoking status [facility] Never smoked tobacco [facility] Start: 10-23-2022 [...] intake : 1-2 cups per day coffee [facility] Start: 1940 Sex Assigned At Not on file [facility] Tobacco smoking status [facility] Start: 07-09-2018 Sex Male (finding) [facility] Functional Status Date Assessment Result Facility 08-31-2024 Functional Status No [facility] Clinical Notes 04-22-2022 to 09-30-2024 Laboratory Note Date & Type Note Facility 09-30-2024 Evaluation + Plan note Future Scheduled TestsTIBC Calculated 09/30/24CBC w/ Auto Diff 09/30/24Comprehensive Metabolic Panel 09/30/24Ferritin 09/30/24Iron Level 09/30/24 [facility] 09-05-2024 Note PR Cardiology - [facility] Subjective Radha Cabello is a 83 y.o. year old male patient being seen for 6 month follow up. Patient states he was just released from [facility] on Thursday due lower GI bleed. Patient states he had and upper Endoscopy while in the hospital which showed 3 to 4 ulcers, which had stopped bleeding prior to the scope. Patient states while he was in the hospital the VP SALES stopped his Plavix for 72 hour and patient is to talk to cardiology as to if he should restart it or not. Patient is also wondering if he should still be taking the Farxiga. Patient denies chest pain, leg swelling, or leg pain. Patient complains of SOB, dizziness, challie horses, fatigue and dyspnea with exertion. Patient has blood work this am at [facility]. Patient Active Problem List Diagnosis Cardiovascular stress [...] Substance Use Topics Alcohol use: Not Currently Drug use: Defer HPI He is seen in follow-up. This is the first time I am meeting him. He used to follow with Dr. Candi Quiros. He is a 83-year-old man with prior history of coronary artery disease status post bypass surgery in 2009. Cardiac catheterization in 2016 showed patent 3 out of 3 bypass grafts and 70% stenosis in a small obtuse marginal branch. This has been managed medically. He has ischemic cardiomyopathy and chronic systolic heart failure. Last LV ejection fraction was 35 to 40% by echocardiogram in February 2024. He was recently admitted to [facility] due to lower GI bleed. This was related to ulcers. Clopidogrel was stopped during that hospitalization. At prior visit with cardiology office Farxiga was added. Today he is seen in follow-up after the recent hospitalization for GI bleeding. He was told to hold the Plavix until he has this office visit. He continues to be on aspirin. He reports no chest pain. He has shortness of breath on exertion NYHA class II symptoms. No lower extremity edema. No palpitations. He sometimes feels dizzy and lightheaded. He has not had recurrence of GI bleeding. Blood testing today showed hemoglobin up to 8.8. He is asking whether he should continue to take Farxiga. Review of Systems Constitutional: Positive for malaise/fatigue. Cardiovascular: Positive for dyspnea on exertion. Respiratory: Positive for shortness of breath. Neurological: Positive for dizziness and light-headedness. Objective Visit Vitals BP 128/74 (BP Location: Left arm, Patient Position: Sitting) Pulse 79 Ht 1.626 m (5' 4 ) Wt 67.6 kg (149 lb) SpO2 99% BMI 25.58 kg/m??? Smoking Status Former BSA 1.75 m??? Physical Exam Constitutional: Appearance: He is well-developed. He is not ill-appearing. HENT: Head: Normocephalic and atraumatic. Nose: Nose normal. Eyes: General: No scleral icterus. Pupils: Pupils are equal, round, and reactive to light. Neck: Thyroid: No thyromegaly. Vascular: No JVD. Cardiovascular: Rate and Rhythm: Normal rate and regular rhythm. Pulses: Radial pulses are 2+ on the right side and 0 on the left side. Heart sounds: Normal heart sounds. No murmur heard. No friction rub. No gallop. Pulmonary: Effort: Pulmonary effort is normal. No respiratory distress. Breath sounds: Normal breath sounds. No wheezing or rales. Chest: Chest wall: No tenderness. Abdominal: General: Bowel sounds are normal. There is no distension. Palpations: Abdomen is soft. Tenderness: There is no abdominal tenderness. Musculoskeletal: General: No swelling. Cervical back: Neck supple. Skin: General: Skin is warm and dry. Neurological: General: No focal deficit present. Mental Status: He is (more content not included)... [facility] 09-02-2024 Evaluation + Plan note Extrac mechelle from: Title:Discharge Note Author:KEVIN MANDELP-BCLynda nee Date:09/02/24 Hemodynamically stable condi tion Discharge To, Anticipated II - Home with responsible caregiver Discharged to - Home independently Discharge Status: Improved Discharge Instructions Given: To patient Discharge disposition: Home Prescriptions reviewed with Patient 64 minutes spent in discharge time with patient, [facility] cardiology office, GI, patient's granddaughter, reviewing d/c [...] [facility] been [facility] 1 to [facility] [address], [address] [phone] Business (1) Additional Instructions: SCOTT TAI Within 1 to 2 days [address] [place] [address]- Business (1) Additional Instructions: Esophagitis Gastritis, Adult Hiatal Hernia Extracted from: Title:ANES Post-operative Note - General Author: Don Gentile Jr., DO Date:09/01/24 Plan Transfer/Discharge: Transfer/Discharge Discharge when meets criteria ( From PACU to Ambulatory Surgery Unit, and To home ). Extracted from: Title:ANES Pre-operative Note - Endo Author:Don Márquez Jr., DO Date:09/01/24 Plan [place] [employer] Anesthesiologists (ASA) physical status classification: [...] consult general surgery Extracted from: Title:APSO Note Author:KEVIN MARROQUIN-Nely BRAGA ate:09/01/24 1. UGI bleed (K92.2: Gastroi ntestinal [...] artery disease) (I25.10: Atherosclerotic heart disease of [place] coronary artery without angina pectoris) Hx. of CABG -Hold asa, clopidogrel 2/2 UGIB -Hold lisinopril -Atorvastatin, carvedilol, imdur w/ hold parameters 5. HTN (hypertension), benign (I10: Essential (primary) hypertension) + orthostatic VS on presentation -Cardiac meds as above 6. Dyslipidemia (E78.5: Hyperlipidemia, unspecified) -Statin 7. On deep vein thrombosis (DVT) prophylaxis (Z79.899: Other meterman (current) drug therapy) Avoid chemical DVTp 2/2 [...] made to ensure accuracy, however, inadvertently computerized academy director mistakes may be present. Extracted from: Title:Admission [...] 15.6 in June 2024 to 7.9 at [place]. Ordered a stat H&H now. If hemoglobin less than 7 will transfuse. 3. HTN (hypertension), benign (I10: Essential (primary) hypertension) SBP currently 150s. Would prefer patient run a little on the higher side, then risk hypotension in setting of above. Holding home Coreg, lisinopril 4. CAD (coronary artery disease) (I25.10: Atherosclerotic heart disease of [place] coronary artery without angina pectoris) Holding home aspirin, Lipitor, Coreg, Plavix, Imdur, lisinopril 5. Dyslipidemia (E78.5: Hyperlipidemia, unspecified) Holding statin 6. Hx of CABG (Z95.1: Presence of aortocoronary bypass graft) In 2009 Future Appointments Appointment Date:09/30/2024 09:30:00 AM Scheduled Provider:Jazmin White MD Location[facility] Type:[facility] Follow Up Diagnostic Tests Pending * Path. Review 09/01/24 * H. pylori Stool Ag 09/01/24 [facility] 05-16-2025 Hospital Discharge instructions Patient Education 09/02/2024 [...] Follow these instructions at home: Medicines Take zfsb-qzc-hzlxcwk and prescription medicines only as told by [...] powder, vinegar, hot sauces, and barbecue sauce. ?[place] fruit juices and citrus fruits, such as oranges, aure, and limes. ?Tomato-based foods, such as red sauce, chili, salsa, and pizza with red sauce. ?Fried and fatty foods, such as donuts, chadian fries, potato chips, and high-fat dressings. ?High-fat [...] provider. Document Revised: 10/15/2020 Document Reviewed: 10/15/2020 [employer] Patient Education 2023 [employer]. 09/02/2024 08:41:58 Gastritis, Adult Gastritis, Adult Gastritis [...] medicines. These include steroids, antibiotics, and some fisq-rpa-svkytgz medicines, such as aspirin or ibuprofen. Having [...] Follow these instructions at home: Medicines Take skue-stj-mhdwkpk and prescription medicines only as told by [...] provider. Document Revised: 08/10/2021 Document Reviewed: 08/10/2021 [employer] Patient Education 2023 [employer] 09/02/2024 08:41:58 Hiatal Hernia Hiatal Hernia A [...] reduce GERD symptoms. Medicines. These may include: ?Aroj-nbz-fzflajz antacids. ?Medicines that make your stomach empty [...] may include: ?Fatty foods, like fried foods. ?[place] fruits, like oranges or lemon. ?Other foods [...] Do not drink alcohol. General instructions Take fesh-knl-hcbzrhy and prescription medicines only as told by [...] provider. Document Revised: 06/03/2022 Document Reviewed: 06/03/2022 [employer] Patient Education 2023 [employer]. Follow Up Care 08/31/2024 17:41:30 With:Jazmin White Address: [address], [address] [phone] Business (1) When:09/30/2024 09:30:00 With:SCOTT TAI Address: [address] [place] [address]- Business (1) When:1 to 2 days Comments:Call for followup appointment With:EARL GUZMAN Address:Unknown When:09/05/2024 09:45:00 Comments:Appointment has already been scheduled - go to [facility] 05-16-2025 NoteDischarge Summary Admission and Discharge Information Admit Date/Time:08/31/2024 20:04 Admitting Physician - Rusty KABA, Nicole Consulting Physician - Amber KABA, Candi Wilson Admitting Diagnoses: 1. UGI bleed, 08/31/2024 2. [...] CABG, HTN, HLD. - Patient presented from [facility] ED secondary to concern for dizziness, dyspnea [...] provider note 06/2024 hgb was 15.6 at [facility] -Anemia panel - results to PCP office 3. Hypocalcemia (E83.51: Hypocalcemia) 09/01: Corrected Ca 8.4 -Trend labs 4. CAD (coronary artery disease) (I25.10: Atherosclerotic heart disease of [place] coronary artery without angina pectoris) Hx. of CABG -Hold asa, clopidogrel 2/2 UGIB -Pt. primary predictive maintenance specialist Dr. Pozo no longer w/ [facility], I spoke w/ Angelika Mckay on behalf of Dr. Ashley who is assuming care w/ review of GIB and request to hold clopidogrel until 09/05 - she isagreeable and pt. has a f/u appt w/ them on 09/05 to further review med regimen, -Resume lisinopril at dc as Cr is stable - w/ hold [...] and discussed with Dr. Tai PCP or senior construction project manager MD once the hospital dandy operator is able to reach him/her. I [...] made to ensure accuracy, however, inadvertently computerized academy director mistakes may be present. Significant Findings No qualifying data available. Services Consulted - Completed -- 08/31/24 23:03:02 EDT Consult to GI - Ordered -- 08/31/24 23:23:00 EDT, UGI bleed, acute blood loss anemia, Consult and Co-manage Physical Exam Vitals & Measurements T: 36.9 ???C(Axillary) TMIN: 36.3 ???C(Oral) TMAX: 36.9 ???C(Oral) HR: 87(Monitore (more content not included)...[facility] HospitalComment on above:Result Comment: Electronically Signed By: Nely MCNEIL\.br\Date and Time Signed: 09/02/24 09:22 EDT\.br\Electronically Co-Signed By: Fritz Deluca DO\.br\Date and Time Co-Signed: 09/02/24 10:06 [id number] Note Progress Note-Physician Assessment/Plan 1. UGI bleed [...] provider note 06/2024 hgb was 15.6 at [facility] -Serial H/H q6hrs -Hemocult stool - pending -Hepatic panel - pending -Anemia panel - pending -Avoid heparin products -Trend labs -GI following 3. Hypocalcemia (E83.51: Hypocalcemia) 09/01: Corrected Ca 8.4 -Trend labs 4. CAD (coronary artery disease) (I25.10: Atherosclerotic heart disease of [place] coronary artery without angina pectoris) Hx. of CABG -Hold asa, clopidogrel 2/2 UGIB -Hold lisinopril -Atorvastatin, carvedilol, imdur w/ hold parameters 5. HTN (hypertension), benign (I10: Essential (primary) hypertension) + orthostatic VS on presentation -Cardiac meds as above 6. Dyslipidemia (E78.5: Hyperlipidemia, unspecified) -Statin 7. On deep vein thrombosis (DVT) prophylaxis (Z79.899: Other meterman (current) drug therapy) Avoid chemical DVTp 2/2 [...] made to ensure accuracy, however, inadvertently computerized academy director mistakes may be present. Subjective No acute [...] HEENT: Mucous membrane moist. Tongue normal, + [place] Neck: Trachea midline, neck supple, Chest: No [...] 05:23:00) Lymph Auto: 19.3 % (09/01/24 05:23:00) Hendry Auto: 8.6 % (09/01/24 05:23:00) Eos Auto: 0.8 % (09/01/24 05:23:00) Basophil Au (more content not included)...[facility] HospitalComment on above:Result Comment: Electronically Signed By: Nely MCNEIL\.br\Date and Time Signed: 09/01/24 10:06 EDT\.br\Electronically Co-Signed By: Fritz Deluca DO\.br\Date and Time Co-Signed: 09/02/24 09:14 [id number] Note Patient Education - Text Gastroenterology Esophagitis [...] these instructions at home: Medicines ??? Take rusw-rlz-tnwrsau and prescription medicines only as told by [...] vinegar, hot sauces, and barbecue sauce. ? [place] fruit juices and citrus fruits, such as oranges, aure, and limes. ? Tomato-based foods, such as red sauce, chili, salsa, and pizza with red sauce. ? Fried and fatty foods, such as donuts, chadian fries, potato chips, and high- fat dressings. [...] know about them. ? (more content not included)...[facility] Note Progress Note-Physician Patient: RADHA CABELLO Age: 83 years Sex: Male : 1940 Associated Diagnoses: None Author: Don Gentile Jr., DO Postoperative Information Postoperative disposition: Postoperative disposition: Home. Optimetrix number: Optimetrix number [id number]. Anesthetic utilized: General. Physical Examination Vital Signs [...] to Ambulatory Surgery Unit, and To home ).[facility] HospitalComment on above:Result Comment: Electronically Signed By: Don Gentile Jr., DO\.br\Date and Time Signed: 09/01/24 13:03 [id number] NoteEndoscopic Procedure Report - Other Patient: RADHA [...] Normal examined duodenum otherwise Images Procedure images: Rec_hd_video____34_362.jpg Rec_hd_video__31_027.jpg Rec_hd_video___21_222.jpg Rec_hd_video__56_816.jpg Rec_hd_video__34_314.jpg Rec_hd_video__22_999.jpg Rec1_hd_video____03_881.jpg Rec1_hd_video____56_283.jpg Rec1_hd_video____42_692.jpg Rec1_hd_video____18_448.jpg Rec1_hd_video_2024____12_957.jpg Rec1_hd_video____10_096.jpg Rec1_hd_video____33_136.jpg Rec1_hd_video___29_419.jpg . Post-Procedure Complications: none. Estimated blood loss: [...] EGD in 3 months to ensure esophagitis healingJ.W. Ruby Memorial HospitalComment on above:Result Comment: Electronically Signed By: Cindy KABA, Jazmin Colby\.br\Date and Time Signed: 09/01/24 11:59 EDTOther Comment: Missing Attachment - attachment storage system not supported [id number] Can be viewed in source system Missing Attachment - attachment storage system not supported [id number] Can be viewed in source systemMissing Attachment - attachment storage system not supported [id number] Can be viewed in source systemMissing Attachment - attachment storage system not supported [id number] Can be viewed in source systemMissing Attachment - attachment storage system not supported [id number] Can be viewed in source systemMissing Attachment - attachment storage system not supported [id number] Can be viewed in source systemMissing Attachment - attachment storage system not supported [id number] Can be viewed in source systemMissing Attachment - attachment storage system not supported [id number] Can be viewed in source system Missing Attachment - attachment storage system not supported [id number] Can be viewed in source systemMissing Attachment - attachment storage system not supported [id number] Can be viewed in source systemMissing Attachment - attachment storage system not supported [id number] Can be viewed in source systemMissing Attachment - attachment storage system not supported [id number] Can be viewed in source systemMissing Attachment - attachment storage system not supported [id number] Can be viewed in source systemMissing Attachment - attachment storage system not supported [id number] Can be viewed in source -20-2590 Note Consultation Note Patient: RADHA CABELLO Age: 83 years Sex: Male : 1940 Associated Diagnoses: None Author: Jazmin White MD Basic Information Anemia History of Present Illness [...] bleed please notify me and consult general surgeryJ.W. Ruby Memorial HospitalComment on above:Result Comment: Electronically Signed By: Cindy KABA, Jazmin Colby\.tom\Date and Time Signed: 09/01/24 11:50 [id number] Note Progress Note-Physician Patient: RADHA CABELLO Age: [...] 16 br/min Systolic Blood (more content not included)...[facility] HospitalComment on above:Result Comment: Electronically Signed By: Don Gentile Jr., DO\Date and Time Signed: 09/01/24 10:50 [id number] NoteHistory and Physical Basic Information Admit Date/Time:08/31/2024 20:04 Chief Complaint sob with exertion, dizziness History of Present Illness 83-year-old male with a past medical history of CAD status post CABG on aspirin and Plavix, hypertension, dyslipidemia He presented to [facility] with dizziness and dyspnea on exertion. Noticed the symptoms on Thursday. Also reports melanotic stools. No vomiting or abdominal pain. He denies any prior history of ulcers. He states he does take something for low back pain every night, but he has no idea if it is Tylenol or an NSAID. Workup in [place] ER revealed stable blood pressure, no tachycardia. He was orthostatic positive as systolic BP dropped from 130 to 102 with standing. His hemoglobin came back at 7.9 today. Back in June 2024 it was 15.6. Stool occult blood positive. He was given 1 L of IV fluids. Not transfused any blood. Does not appear he was given the Protonix. Transferred to [facility] for further GI management. Review of [...] good eye contact Lab Results Labs from [place] reviewed. Diagnostic Results CXR negative Assessment/Plan 1. [...] 15.6 in June 2024 to 7.9 at [place]. Ordered a stat H&H now. If hemoglobin less than 7 will transfuse. 3. HTN (hypertension), benign (I10: Essential (primary) hypertension) SBP currently 150s. Would prefer patient run a little on the higher side, then risk hypotension in setting of above. Holding home Coreg, lisinopril 4. CAD (coronary artery disease) (I25.10: Atherosclerotic heart disease of [place] coronary artery without angina pectoris) Holding home [...] takes 840 mg daily Allergies No Known AllergiesJ.W. Ruby Memorial HospitalComment on above:Result Comment: Electronically Signed By: Rusty KABA, Nicole\.br\Date and Time Signed: 08/31/24 23:41 [id number] History of Present illness Narrative* Debbi Murcia, MRAIBEL - 05/04/2024 8:30 AM EST Images from [...] carcinoma Brachial neuralgia CAD (coronary artery disease) ([facility] Chest pain 11/20/18-11/21/18, 03/20/17 Chest pain 07/01/2020 Electrolyte Imbalance, NSTEMI Coronary atherosclerosis of [place] coronary artery ([facility]) Diverticulosis 12/2019 Heart disease History of being hospitalized 05/22/2023 Hypotension, SRINIVAS History of cholecystectomy 2003 History of echocardiogram 2020 EF 40% Hyperlipemia ([facility]) Hypertension ([facility]) 06/2014 Pancreatitis Past Surgical History: Procedure Laterality [...] in wrist at this time. Atherosclerosis of [place] coronary artery of [place] heart without angina pectoris (CMS/HCC) This is [...] No follow-ups on file. documented in this encounterThe Rehabilitation [id number] NoteCardiology Clinic Note Subjective Radha Cabello is [...] and is negative unless otherwise specified in [facility]. Objective Visit Vitals Smoking Status Former Physical [...] 03/20/2017 Patent 3 out (more content not included)...[facility] 01-13-2024 History of Present illness Narrative* [...] Medicine) Scott Tai MD as PCP - [place] Medicare Annual Visit Over the past 2 [...] Do you have a medical power of pot holder binder?: Yes Who is your medical power of pot holder binder?: daughter Objective : BP 128/66 Pulse 76 [...] facility ACP (advance care planning) Atherosclerosis of [place] coronary artery of [place] heart without angina pectoris (CMS/HCC) - CBC [...] on January 13, 2024 documented in this encounterThe Rehabilitation [id number] History of Present illness Narrative* Scott Tai MD - 05/27/2023 3:30 PM EST HPI Follow-up Additional comments: Went to [facility] ER 05/22/23 was kept for observation dx: hypotension coreg and lisinopril doses decreased and advised to stop spironolactone Last edited by Viviana Martini LPN on 05/27/2023 3:27 PM. Subjective Patient ID: Skip Cabello is a 82 y.o. male who presents for Follow-up (Went to [facility] ER 05/22/23 was kept for observation dx: hypotension coreg and lisinopril doses decreased and advised to stop spironolactone) and Arm Pain. Flowsheet Row Patient Outreach from 05/26/2023 in [facility] with Shu ThursdayDELICIA Discharge Information ED or Hospital Discharge? ED Patient has been contacted within 1 week of being seen in the ED Yes Discharge Date 05/22/23 Discharge Hospital [facility] Discharged To: Home Setting Engagement [...] nitroglycerin (Nitrostat) 0.4 MG SL tablet pancrelipase, Yya-Mkqy-Ksyd, (Creon) [id number] units capsule Take by mouth 3 (three) [...] 07/01/2020 Electrolyte Imbalance, NSTEMI Coronary atherosclerosis of [place] coronary artery (CMS/HCC) Diverticulosis 12/2019 Heart disease [...] failure), NYHA class 2 (CMS/HCC) Atherosclerosis of [place] coronary artery of [place] heart without angina pectoris (CMS/HCC) Right cervical radiculopathy - methylPREDNISolone (Medrol Dospak) 4 MG tablets; Follow schedule on package instructions Follow up in about 4 weeks (around 06/24/2023) for Recheck, F/U med changes. documented in this encounterThe Rehabilitation [id number] Evaluation note* Encounter Date Diagnosis Assessment Notes Treatment Notes Treatment Clinical Notes Apr, Liver lesion, right lobe (ICD-10 - K76.9) [employer] Other [facility]No [facility] Other Evaluation note* Diagnosis Benign essential hypertension (CMS/HCC)- Primary Essential hypertension, benign Chronic systolic CHF (congestive heart failure), NYHA class 2 (CMS/HCC) Atherosclerosis of [place] coronary artery of [place] heart without angina pectoris (CMS/HCC) Right cervical radiculopathy documented in this encounter [facility] HealthcareEvaluation note* Diagnosis Routine general medical examination at health care facility- Primary Routine general medical examination at a health care facility ACP (advance care planning) Other specified counseling Atherosclerosis of [place] coronary artery of [place] heart without angina pectoris (CMS/HCC) Atrial enlargement, [...] of both eyes documented in this encounter [facility] HealthcareEvaluation note* Diagnosis Routine general medical examination at health care facility- Primary Routine general medical examination at a health care facility Other chronic pancreatitis (CMS/HCC) Chronic systolic (congestive) heart failure (CMS/HCC) Unspecified systolic (congestive) heart failure (CMS/HCC) Chronic kidney disease, stage 3a (HCC) (CMS/HCC) Carpal tunnel syndrome of right wrist Atherosclerosis of [place] coronary artery of [place] heart without angina pectoris (CMS/HCC) Atrial enlargement, [...] History appendectomy Hospitalization History see surgical history [employer] Other Hospital course Narrative No data available for this section [facility] Hospital Discharge instructions No data available for this section [facility] Progress note No data available for this section [facility] Summary Purpose Family History No Family History [...] FoundNo AdvancedDirectives Records FoundNo Advanced Directives Records FoundNo Advanced Directives Records Found Hospital Course Note MR#: [id number] [facility] Pt. Name: Radha Cabello Admitted: 07/01/2020 Discharged: [...] and content) DATE CREATED AUTHOR 06/29/2018 [facility] DATE CREATED AUTHOR AUTHOR'S ORGANIZ ATION 07/13/2020 [facility] [facility] DATE CREATED AUTHOR AUTHOR'S ORGANIZ ATION 06/17/2021 [facility] dical Specialist DATE CREATED AUTHOR AUTHOR'S ORGANIZ ATION 07/31/2021 [facility] DATE CREATED AUTHOR AUTHOR'S ORGANIZ ATION 09/23/2021 [facility] DATE CREATED AUTHOR AUTHOR'S ORGANIZ ATION 05/07/2024 [facility] dical Specialists [facility] DATE CREATED AUTHOR AUTHOR'S ORGANIZ ATION 09/02/2024 [facility] DATE CREATED AUTHOR AUTHOR'S ORGANIZ ATION 09/03/2024 [facility] DATE CREATED AUTHOR AUTHOR'S ORGANIZ ATION 09/04/2024 [facility] DATE CREATED AUTHOR AUTHOR'S ORGANIZ ATION 10/01/2024 [employer] [facility] DATE CREATED AUTHOR AUTHOR'S ORGANIZ ATION 10/08/2024 [employer] [facility] DATE CREATED AUTHOR AUTHOR'S ORGANIZ ATION 10/10/2024 [facility] REASON FOR VISIT (unrecogniz ed section and content) Reason Comments Follow-up Went to [facility] ER 4 was kept for observation dx: hypotension coreg and lisinopril doses decreased and advised to stop spironolactone Arm Pain Reason Comments Medicare Annual Wellness Visit Subsequen Care Teams (unrecognized sec tion and content) Bobbin Disker Relationship Specialty Start Date End Date Scott Tai MD [address] [place] [address] PCP - Lashon PASCUAL 04/20/21 Scott Tai MD [address] [place] [address] PCP - General Internal Medicine 10/22/22 Bobbin Disker Relationship Specialty Start Date End Date Scott Tai MD [address] [place] [address] PCP - Lashon PASCUAL 04/20/21 Scott Tai MD [address] [place] [address] PCP - General Internal Medicine 10/22/22 Bobbin Disker Relationship Specialty Start Date End Date Scott Tai MD [address] [place] [address] PCP - Lashon PASCUAL 04/20/21 Scott Tai MD [address] [place] [address] PCP - General Internal Medicine 10/22/22 Bobbin Disker Relationship Specialty Start Date End Date Scott Tai MD [address] [place] [address] PCP - Lashon PASCUAL 04/20/21 Scott Tai MD [address] [place] [address] PCP - General Internal Medicine 10/22/22 Bobbin Disker Relationship Specialty Start Date End Date Scott Tai MD [address] [place] [address] PCP - Lashon PASCUAL 04/20/21 Scott Tai MD [address] [place] [address] PCP - General Internal Medicine 10/22/22 Bobbin Disker Relationship Specialty Start Date End Date Scott Tai MD [address] [place] [address] PCP - Lashon PASCUAL 04/20/21 Scott Tai MD [address] [place] [address] PCP - General Internal Medicine 10/22/22 Bobbin Disker Relationship Specialty Start Date End Date Scott Tai MD [address] [place] [address] PCP - Lashon PASCUAL 04/20/21 Scott Tai MD [address] [place] [address] PCP - General Internal Medicine 10/22/22 Ruma Fernandes LPN 07/08/24 Bobbin Disker Relationship Specialty Start Date End Date Scott Tai MD [address] [place] [address] PCP - Lashon PASCUAL 04/20/21 Scott Tai MD [address] [facility] [address] [place] [address] PCP - General Internal Medicine 10/22/22 Ruma Fernandes LPN [address] [facility] [place] [address] 07/08/24 FOR RECORDS PERTAINING TO PATIENTS WHO ARE [...] BE BASED ON THE PRIMARY CLINICAL RECORDS. [employer] [facility]. provides no warranty or guarantee of the accuracy or completeness of information in this document.
[2024-11-30] MEDS: MECLIZINE HCL 12.5 MG TABLET 25 MG PO (09:26)
[2024-11-30 09:32] LABS: Hematocrit 32.6 % (42.0-54.0); Hemoglobin 9.6 g/dL (14.0-18.0); Immature Granulocytes Abs Auto 0.00 10^3/uL (0.00-0.03); Immature Granulocytes Pct Auto 0.0 % (0.0-0.5); Lymphocytes Absolute Auto 1.3 10^3/uL (1.2-3.8); Mean Corpuscular HGB Conc 29.4 g/dL (29.9-35.2); Mean Corpuscular Hemoglobin 19.9 pg (25.9-34.0); Mean Corpuscular Volume 67.5 fL (80.0-94.0); Platelet Count 262 10^3/uL (150-450); Red Blood Count 4.83 10^6/uL (4.70-6.10); White Blood Count 7.5 10^3/uL (4.0-11.0)
[2024-11-30 09:51] LABS: Anion Gap 8.2; Blood Urea Nitrogen 28.0 mg/dL (7.0-18.0); Calcium 8.8 mg/dL (8.5-10.1); Carbon Dioxide 27.0 mmol/L (21.0-32.0); Chloride 105 mmol/L (98-107); Estimated GFR (African America >60 (>=60 mL/min/1.73m^2); Estimated GFR (Non-African Ame >60 (>=60 mL/min/1.73m^2); Glucose 107 mg/dL (74-106); Potassium 4.2 mmol/L (3.5-5.1); Sodium 136 mmol/L (136-145)
[2024-11-30 09:58] VITALS: BP 130/64; PULSE 66; O2SAT 100
[2024-11-30 10:46] VITALS: BP 133/65; PULSE 54; O2SAT 98
[2024-11-30 11:00] VITALS: PULSE 56; O2SAT 98
[2024-11-30] MEDS: DIAZEPAM 10 MG/2 ML SYRINGE 2.5 MG IV (11:26)
[2024-11-30 11:30] VITALS: BP 125/65; PULSE 60; O2SAT 98
[2024-11-30 12:37] VITALS: BP 112/62; PULSE 60; O2SAT 100
== END 2024-11-30 13:58 | disposition home or self-care (01) ==
PROVIDERS: Emergency Provider Emergency Medicine; PCP Internal Medicine
DX: R42 Dizziness and giddiness (principal)
CPT/HCPCS: 36415; 70450; 71045; 80048; 81001; 84484; 85025; 93005; 96374; 99285; J3360

== ENCOUNTER 2025-02-22 08:20 | Outpatient (OUT) | payer MEDICARE, SELFPAY ==
--- OUTSIDE RECORDS SUMMARY | 2025-02-22 08:24 | XMS_ITS | Encounter Summary ---
Author Organization [facility] Address [address] [place] [address] Care Team Providers Care Convention Services Manager Name Role Phone Scott Tai MD Unavailable [phone] Scott Tai MD Primary Care Provider [phone] Shelley Gilmore RN Unavailable [phone] Ruma Fernandes LPN Unavailable Encounter Details DateTypeDepartmentCare Team (Latest Contact Info)Iwxrffmngod49/20/2024Clinisync Result Encounter [facility] External Department Unsolicited Provider, Generic External Data Social History Tobacco UseTypesPacks/DayYears UsedDateSmoking Tobacco: NeverSmokeless Tobacco: NeverAlcohol UseStandard Drinks/WeekCommentsNot Currently0 (1 standard drink = 0.6 oz pure alcohol)Caffeine intake : 1-2 cups per day [id number] Health LiteracyAnswerDate RecordedHow often do you need to have someone help you when you read instructions, pamphlets, or other written material from your doctor or pharmacy?Never11/10/2023Humiliation, Afraid, Rape, and Kick questionnaireAnswer Date RecordedWithin the last year, have you been afraid of your partner or ex-partner?No11/10/2023Within the last year, have you been humiliated or emotionally abused in other ways by your partner or ex-partner?No11/10/2023 Within the last year, have you been kicked, hit, slapped, or otherwise physically hurt by your partner or ex-partner?No11/10/2023Within the last year, have you been raped or forced to have any kind of sexual activity by your part ner or ex-partner?No11/10/2023Social Connection and Isolation PanelAnswerDate RecordedIn a typical week, how many times do you talk on the phone with family, friends, or neighbors?Once a week11/10/2023How often do you get together with friends or relatives?Once a week11/10/2023How often do you attend restorationism or bahai services?1 to 4 times per year11/10/2023o you belong to any clubs or organizations such as restorationism groups, unions, fraAnthill or athletic groups, or school groups?No11/10/2023How often do you attend meetings of the clubs or organizations you belong to?Never11/10/2023re you , , , , never , or living with a partner?Tmrupgs4911/10/2023UDIT-C AnswerDate RecordedQ1: How often do you have a drink containing alcohol?Never 12/02/2022Q2: How many drinks containing alcohol do you have on a typical day when you are drinking?Patient does not drink12/02/2022Q3: How often do you have six or more drinks on one occasion?Never12/02/2022Overall Financial Resource Strain (CARDIA)AnswerDate RecordedHow hard is it for you to pay for the very basics like food, housing, medical care, and heating?Not hard at all12/02/2022 PHQ-2AnswerDate RecordedPatient Health Questionnaire-2 [id number] [place] of Occupational Health - Occupational Stress QuestionnaireAnswerDate RecordedDo you feel stress - tense, restless, nervous, or anxious, or unable to sleep at night because yourmind is troubled all the time - these days?Not at all 12/02/2022Exercise Vital SignAnswerDate RecordedOn average, how many days per week do you engage in moderate to strenuous exercise (like a brisk walk)?2 days 12/02/2022On average, how many minutes do you engage in exercise at this level? 10 min12/02/2022Hunger Vital SignAnswerDate RecordedWithin the past 12 months, you worried that your food would run out before you got the money to buymore. Never true08/15/2023Within the past 12 months, the food you bought just didn't last and you didn't have money to get more.Never true12/02/2022RAPARE - TransportationAnswerDate RecordedIn the past 12 months, has lack of transportation kept you from medical appointments or from getting medications?No 12/02/2022In the past 12 months, has lack of transportation kept you from meetings, work, or from getting things needed for daily living?No12/02/2022 Housing Stability Vital SignAnswerDate RecordedIn the last 12 months, was there a time when you were not able to pay the mortgage or rent on time?No12/02/2022In the last 12 months, how many places have you lived?In the last 12 months, was there a time when you did not have a steady place to sleep or slept in ashelter (including now)?No12/02/2022Sex and Gender InformationValueDate RecordedSex Assigned at BirthNot on fileLegal VyjJekn5507/02/2022 6:45 PM EDT Gender IdentityNot on fileSexual OrientationNot on filedocumented as of this encounter Functional Status * Over the past 2 weeks, how often have you been bothered by any of the following problems?QuestionAnswerDate of AssessmentAuthorLittle interest or pleasure in doing thingsNot at all01/16/2025 8:26 AM Viviana Jackson LPN Feeling down, depressed, or hopelessNot at all01/16/2025 8:26 AM Viviana Jackson LPNPatient Health Questionnaire-2 [id number] 8:26 AM Viviana Jackson LPN * QuestionAnswerDate of AssessmentAuthorTrouble falling or staying asleep, or sleeping too muchNot at all05/04/2024 8:00 AM Negin ENCINASeling tired or having little energyNot at all05/04/2024 8:00 AM JACKI ENCINAS documented as of this encounter Plan of Treatment DateTypeDepartmentCare Team (Latest Contact Info)Jstoznbbuoo81/30/2026 8:30 AM EDTOffice Visit [facility] [address] [place] [address] Scott Tai MD [address] [facility] [address] [place] [address] documented as of this encounter Procedures Procedure NamePriorityDate/TimeAssociated DiagnosisCommentsCA ECHO DOPPLER ZGZBFYGW84/20/2024 1:26 PM EST documented in this encounter Results * CA ECHO DOPPLER COMPLETE (03/09/2024 1:26 PM EST)Anatomical RegionLaterality ModalityOtherSpecimen (Source)Anatomical Location / LateralityCollection Method / VolumeCollection TimeReceived Time03/09/2024 1:26 PM EST Narrative 03/09/2024 1:27 PM EST [facility] ?[address] ? [place] [address] ? Cardiology Report ? Signed ? Patient: KEKE CABELLOZOFIA E ? MR#: [id number] ?? : 1940 ?Acct:[id number] ?? Age/Sex: 83 / M ?ADM Date: 03/09/24 ?? Loc: CARD ? Attending Dr: CANDI QUIROS ? Ordering Physician: CANDI QUIROS ?? Date of Service: 03/09/24 ?? Procedure(s): CA echo doppler complete ?? Accession Number(s): [id number] ? cc: CANDI QUIROS; SCOTT TAI ? Patient Name: ? RADHA CABELLO ? MR#: [id number] ? : 1940 ? Exam Date: 03/09/2024 ?? Ordering Doctor: CANDI QUIROS M.D. ? ECHOCARDIOGRAM REPORT ? PROCEDURE: ? CA ECHO DOPPLER COMPLETE ? INDICATIONS: ? Chronic systolic heart failure ? COMPARISON: ? None. ? DESCRIPTION: ? COMPLETE ECHOCARDIOGRAM Real-time transthoracic ?? echocardiography with 2D, M-mode, spectral and color flow Doppler performed. ? QUALITY: ? Technical quality was good. ? LEFT VENTRICLE: ? Normal chamber size. Normal left ventricular wall ?? thickness. Global left ventricular systolic function is moderately decreased. ? There is akinesis of the mid and distal septum, apex, apical inferior and ?? apical anterior segments. ?? LV EF: ? Visual estimation of left ventricular ejection fraction is 35-40% ?? DIASTOLIC: ? Grade I diastolic dysfunction. ?? ATRIAL SEPTUM: ? LEFT ATRIUM: ? Moderate dilatation. ?? RIGHT ATRIUM: ? Moderate dilatation. ?? RIGHT VENTRICLE:Normal chamber size. ??Normal right ventricular systolic ?? function. ? TRICUSPID VALVE: Normal mobility and thickness. No stenosis with trivial ?? regurgitation. No evidence of pulmonary hypertension. RVSP 33 mmHg ? MITRAL VALVE: ? Normal mobility and thickness. ?? No evidence of mitral valve ?? stenosis. ??There is no mitral annular calcification. Trivial mitral ?? regurgitation. ? AORTIC VALVE: ? Normal trileaflet appearance. Thickened aortic valve. ? Normal leaflet mobility. ??No evidence of aortic valve stenosis. Trivial aortic ?? regurgitation. ? AORTIC ROOT: ? Normal diameter and appearance. ? PULMONIC VALVE: Normal thickness and mobility. No stenosis. Mild ?? regurgitation. ? PERICARDIUM: ? No evidence of pericardial effusion. ? IVC: ? Collapses with inspirations. Normal size. ? PLEURA: ? CONCLUSION: ? 1. The left ventricle is normal in size and exhibits segmental wall motion ?? abnormalities consistent with a prior left anterior descending myocardial ?? infarction. ??Systolic function is moderately reduced and estimated LVEF is 35 ?? to 40%. ?? 2. Normal right ventricular size and systolic function. ?? 3. Moderate biatrial dilatation. ? 4. No significant valvular dysfunction. ?? 5. Normal right-sided pressures. ? Adult Echocardiography Procedure Report ?? Left Ventricle ?? LVEDD (3.7 - 5.6 cm): ? 4.86 cm ?? LVESD (2.2 - 4.0 cm): ? 4.00 cm ?? LVIVS thickness (0.6 - 1.2 cm): ? 1.04 cm ?? LVPW thickness (0.5 - 1.0 cm): ? 0.95 cm ?? e': ? 0.06 m/s ?? E - e': ? 6.98 ?? LVOT Max Gradient: ? 2.57 mm[Hg] ?? LVOT Area (cm2): ? 0.80 m/s ?? Peak Velocity (LVOT): ? 0.80 m/s ?? Mean Velocity (LVOT): ? 0.57 m/s ?? LVOT Diameter ? 2.00 cm ?? Left Ventricular Ejection Fraction: ? 35-40 % ?? Left Atrium ?? LA Volume Index (2D A2C): ? 37.44 ml/m2 ?? Left Atrium Systolic Dimension: ? 4.86 cm ?? Mitral Valve ?? MV E to A Ratio: ? 0.45 ?? Mitral Valve A-Wave Peak Velocity: ? 0.99 m/s ?? Mitral Valve E-Wave Peak Velocity: ? 0.44 m/s ?? Right Ventricle ?? RV Internal Diastolic Dimension: ? 3.97 cm ?? Aorta ?? AO Root Diam: ? 3.31 cm ?? Ascending Ao Diam: ? 3.10 cm ?? Aortic Valve ?? AoV Area (Peak Adarsh): ? 2.40 cm2, 2.40 cm2 ?? AoV Area (VTI): ? 2.17 cm2, 2.17 cm2 ?? Peak Velocity(Antegrade Flow): ? 1.05 m/s ?? Peak Gradient(Antegrade Flow): ? 4.39 mm[Hg] ?? Mean Velocity(Antegrade Flow): ? 0.76 m/s ?? Mean Gradient(Antegrade Flow): ? 2.59 mm[Hg] ?? Velocity Time Integral: ? 22.61 cm ?? Tricuspid Valve ?? Peak Velocity (Regurgitant Flow): ? 2.56 m/s, 2.42 m/s, 2.76 m/s ?? Pulmonic Valve ?? Mean Gradient: ? 1.94 mm[Hg], 2.21 mm[Hg], 2.46 mm[Hg] ?? Mean Velocity: ? 0.62 m/s, 0.67 m/s, 0.75 m/s ?? Peak Velocity: ? 1.14 m/s ?? Peak Gradient: ? 4.81 mm[Hg], 5.70 mm[Hg], 5.03 mm[Hg] ?? Right Atrium ?? Right Atrium Systolic Pressure: ? 53.71 ml, 53.71 ml ? Dictated by: Earl Patrick M.D. on 03/09/2024 at 13:18 ? Approved by: Earl Patrick M.D. on 03/09/2024 at 13:26 ? Dictated By: ?EARL PATRICK ? Signed By: ?03/09/241326 ? DD/ 1326 ? TD/TT: ? Mold Machine Operator: Procedure Note Radiology, Radiologist, - 03/09/2024 [place] [address] Cardiology Report Signed Patient: RADHA CABELLO EMR#: [id number] : 1940cct:[id number] Age/Sex: 83 / MADM Date: 03/09/24 Loc: CARD Attending Dr: CANDI QUIROS Ordering Physician: CANDI QUIROS Date of Service: 03/09/24 Procedure(s): CA echo doppler complete Accession Number(s): [id number] cc: CANDI QUIROS; SCOTT TAI Patient Name: RADHA CABELLO MR#: [id number] : 1940 Exam Date: 03/09/2024 Ordering Doctor: [...] at 13:26 Dictated By: EARL PATRICK Signed By:03/09/24 1327 DD/ 1326 TD/TT: Mold Machine Operator: Authorizing ProviderResult TypeResult StatusGeneric External Data Provider CLINISYNC IMAGINGFinal Result documented in this encounter Visit Diagnoses Not on filedocumented in this encounter Care Teams Team MemberRelationshipSpecialtyStart DateEnd Date Scott Tai MD [address] [facility] [address] [place] [address] PCP - Lashon ID04/20/21 Scott Tai MD [address] [facility] [address] [place] [address] PCP - GeneralInternal Medicine10/22/22 Shelley Gilmroe, RN [address] [place] [address] Clinical AdvocateFamily Medicine Ruma Fernandes LPN [address] [facility] 110 [place] [address] 07/08/24documented as of this encounter
--- OUTSIDE RECORDS SUMMARY | 2025-02-22 08:24 | XMS_ITS | Clinical Summary ---
Author Organization [facility] Address [address] [place] [address] Care Team Providers Care Economics Department Chair Name Role Phone Scott Tai MD Primary Care Provider [phone] Allergies No known active allergies Medications MedicationSigDispense QuantityRefillsLast FilledStart DateEnd DateStatus aspirin 81 mg EC tablet Take 1 tablet by mouth in the morning.Active atorvastatin (Lipitor) 40 mg tablet Take 40 mg by mouth in the morning.Active carvedilol (Coreg) 25 mg tablet Take 6.25 mg by mouth with breakfast and with evening meal.Active isosorbide mononitrate ER (Imdur) 30 mg 24 hr tablet Use 1 tablet in the mouth or throat 1 (one) time each day.Active lisinopril 40 mg tablet Take 20 mg by mouth in the morning.Active nitroglycerin (Nitrostat) 0.[address] 1 tablet by sublingual route as needed.09/25/2021ctive pantoprazole (ProtoNix) 40 mg EC tablet Use 1 tablet in the mouth or throat 1 (one) time each day.Active sildenafil (Viagra) 50 mg tablet Take 50 mg by mouth if needed for erectile dysfunction.09/16/2023ctive magnesium oxide (Mag-Ox) 400 mg tablet 400 mg in the morning.Active sucralfate (Carafate) 1 gram tablet Take 1 g by mouth before breakfast, before lunch, before evening meal, and at bedtime.Active spironolactone (Aldactone) 25 mg tablet Indications:Chronic systolic congestive heart failure (CMS/HCC)Take 1 tablet (25 mg) by mouth in the morning. 90 tablet ///ctive dapagliflozin propanediol (Farxiga) 10 mg Indications:Benign hypertensive heart disease with heart failure (CMS/HCC)Take 1 tablet (10 mg) by mouth once daily as directed. 90 tablet 5076Active Active Problems ProblemNoted DateDiagnosed DateBilateral hearing lossRegular astigmatism, lhrbjlnhb15Ischemic yiybrtltjscwig56/22/2023 Overview (12/09/2022): Patient has an extensive history of CAD. His last known EF was 40%. That was in April 2020.?? Assessment & Plan (12/09/2022 2:20 PM EDT): As above Atrial enlargement, muadadilm08asal cell carcinoma of back enign essential xsogimhnkzaa07enign prostatic hyperplasia with lower urinary tract ppprqdca10 Cardiac xmrvjbiezf13arpal tunnel syndrome of right wrist hronic recurrent klbcrtziaske42hronic systolic CHF (congestive heart failure), NYHA class Assessment & Plan (12/09/2022 2:26 PM EDT): NYHC- II- remains euvolemic without exacerbation Continue GDMT- Asa, lipitor, coreg, lisinopril, aldactone Diuretic therapy- none at this time Monitor daily weights, I&O, fluid restriction 1.5-2L/day, renal function and electrolytes- Echocardiogram ordered for known reduced EF, recent chest pain and hypotension Diverticulosis of colonyspepsiaElevated PSAHistory of coronary artery bypass graft10/23/2022 12/09/2022Idiopathic chronic misjfelfafic17Impotence of organic lypcua91Intermediate stage nonexudative age-related macular degeneration of both eyesMitral valve insufficiency NocturiaNuclear sclerosis of both eyes Overweight (BMI 25.0-29.9)ancreatic myoxmhirrcllo52Sensorineural hearing loss, upexfwflt48/06/2023 12/09/2022Squamous cell carcinoma of left handStage 3a chronic kidney unqpzmo55ardiovascular stress test abnormal 08/21/2022hest pain08/21/2022oronary aiicoxuiliymksnp70/04/2023 Overview (12/09/2022): cath 03-20 RCA and LAD occluded Byrd to LAD and radial to PDA patent DVG to D1 patent circumflex OM 2 70 % small vessel Assessment & Plan (12/09/2022 2:19 PM EDT): Coronary artery disease is stable Continue GDMT- ASA, coreg, lipitor, plavix, imdur, and lisinopril continue risk factor modifications- heart healthy diet, regular exercise as tolerated and continue all medications. Oitybjv3908/21/2022 Assessment & Plan (12/09/2022 2:20 PM EDT): Currently stable without symptoms Yeggpsg1208/21/2022History of khzcmqlthuxb85/04/1721Ksntgacpjdptoi52/04/2023 Assessment & Plan (12/09/2022 1:09 PM EDT): Continue statin Hypertensive nfgyaiay91/04/2023 Assessment & Plan (12/09/2022 2:20 PM EDT): Hypertension is currently well controlled, PCP had reduced multiple HTN meds r/t noted symptomatic hypotension Coreg, lisinopril and aldactone were all reduced by half Old myocardial nvydahjsym02/04/2023 Immunizations ImmunizationAdministration DatesNext CblMgyl0110/13/2017Zoster, live10/28/2012 Family History Medical HistoryRelationNameCommentsCoronary artery diseaseFatherHypertension FatherRelationNameStatusCommentsFatherDeceasedMotherDeceased Social History Tobacco UseTypesPacks/DayYears UsedDateSmoking Tobacco: FormerCigarettes Smokeless Tobacco: Never Tobacco Cessation:Counseling Given: Not Answered Alcohol UseStandard Drinks/WeekCommentsNot Currently0 (1 standard drink = 0.6 oz pure alcohol)UT Safety & EnvironmentAnswerDate RecordedFear of Current or Ex-PartnerNot on file06/11/2023Emotionally AbusedNot on file06/11/2023hysically AbusedNot on file06/11/2023Sexually AbusedNot on file06/11/2023hysically or Sexually AbusedNot on file06/11/2023Sex and Gender InformationValueDate Recorded Sex Assigned at BirthNot on fileLegal LbpVhkf2010/16/2021 10:32 PM EDTGender IdentityNot on fileSexual OrientationNot on file Last Filed Vital Signs Vital SignReadingTime TakenCommentsBlood Nlizzhpf131/7409/05/2024 9:55 AM EDT Vcnyr163109/05/2024 9:55 AM EDTTemperature--Respiratory Rate--Oxygen Hvizmjdqlc36% 09/05/2024 9:55 AM EDTInhaled Oxygen Concentration--Zqktzo54.6 kg (149 lb) 09/05/2024 9:55 AM QXZFagkww604.6 cm (5' 4 )09/05/2024 9:55 AM EDTBody Mass Index25.58009/05/2024 9:55 AM EDT Plan of Treatment Health MaintenanceDue DateLast DoneCommentsDiabetes: Hemoglobin A1C1942 Medicare Annual Wellness (AWV)3Diabetes: Retinopathy Screening 3Depression Tqnjlqtsx65/01/1955Diabetes: Urine Protein Screening 2Pneumococcal Vaccine: 50+ Years (1 of 2 - PCV)1961Fall Risk Txvvcyemd63/01/2008Zoster Vaccines (2 of 2), 10/28/2012 COVID-19 Vaccine ( season)508/06/2020, 10/30/2020Influenza Vaccine (#1)5Adult Gtrqzup24HIB VaccinesAged OutNo longer eligible based on patient's age to complete this topicHPV VaccinesAged OutNo longer eligible based on patient's age to complete this topicIPV Vaccines Aged OutNo longer eligible based on patient's age to complete this topic Meningococcal B VaccineAged OutNo longer eligible based on patient's age to complete this topicMeningococcal VaccineAged OutNo longer eligible based on patient's age to complete this topicRotavirus VaccinesAged OutNo longer eligible based on patient's age to complete this topic Insurance Care Teams Team MemberRelationshipSpecialtyStart DateEnd Date Scott Tai MD PCP - GeneralInternal Medicine12/09/22
--- OUTSIDE RECORDS SUMMARY | 2025-02-22 08:24 | XMS_ITS | Clinical Summary ---
Author Organization [facility] tem Address [id number] [place] [address] Care Team Providers Care Tools Programmer Name Role Phone Scott Tai MD Primary Care Provider [phone] Allergies No known active allergies Medications MedicationSigDispense QuantityRefillsLast FilledStart DateEnd DateStatus acetaminophen-codeine (TYLENOL #3) 300-30 mg per tablet Take 1 tablet by mouth every 4 (four) hours as needed for pain.Active atorvastatin (LIPITOR) 40 mg tablet Take 40 mg by mouth daily.Active carvediloL (COREG) 12.5 mg tablet Take 12.5 mg by mouth 2 (two) times a day with meals.Active CEPHalexin (KEFLEX) 500 mg capsule Take 500 mg by mouth 4 (four) times a day.Active hydroCHLOROthiazide (MICROZIDE) 12.5 mg capsule Take 12.5 mg by mouth daily.Active isosorbide mononitrate (IMDUR) 30 mg 24 hr tablet Take 30 mg by mouth daily.Active pantoprazole (PROTONIX) 40 mg EC tablet Take 40 mg by mouth daily.Active lisinopriL (PRINIVIL,ZESTRIL) 40 mg tablet Take 40 mg by mouth daily.Active clopidogreL (PLAVIX) 75 mg tablet Take 75 mg by mouth daily.Active aspirin 81 mg Take 81 mg by mouth daily.Active ciprofloxacin HCl (CIPRO) 250 mg tablet Take 1 tablet (250 mg total) by mouth 2 (two) times a day. 14 tablet 12/07/2019Active Active Problems No known active problems Family History Medical HistoryRelationNameCommentsHeart attackFatherNo Known ProblemsMother RelationNameStatusCommentsFatherDeceasedMotherDeceased Social History Tobacco UseTypesPacks/DayYears UsedDateSmoking Tobacco: FormerCigarettesCigars Smokeless Tobacco: FormerChewQuit: 1995Alcohol UseStandard Drinks/WeekComments Not Currently0 (1 standard drink = 0.6 oz pure alcohol)ChildcareAnswerDate NsjiubkrSqlszdyhcPypsekv25/03/2020EmploymentAnswerDate RecordedEmploymentUnknown 11/21/2019Purpose - LifeAnswerDate RecordedPurpose and direction in lifeUnknown 1Sex and Gender InformationValueDate RecordedSex Assigned at BirthNot on fileLegal DymLhtc4111/21/2019 3:39 PM EDTGender IdentityNot on fileSexual OrientationNot on file Last Filed Vital Signs Vital SignReadingTime TakenCommentsBlood Rrcocusq801/8212/07/2019 1:44 PM EDT Oswsp7703/14/2020 11:35 AM RSNRowidmmokpl38.7 ??C (98 ??F)12/07/2019 1:44 PM EDT Respiratory Uckx178612/02/2019 11:35 AM EDTOxygen Cuxghbnjrk842%12/02/2019 11:35 AM EDTInhaled Oxygen Concentration--Gfxeax01.7 kg (147 lb)12/07/2019 1:44 PM EDT Gryyof245.6 cm (5' 4 )12/07/2019 1:44 PM EDTBody Mass Index25.2308 1:44 PM EDT Plan of Treatment Health MaintenanceDue DateLast DoneCommentsDepression Kdawlacrg69/01/1955Tobacco Oiipavhjf24/01/1955DTaP,Tdap and Td Vaccines (1 - Tdap)1961Zoster (Shingles) Vaccine (1 of 2)1992Fall Risk Nqrzpyffo36/01/2008RSV ( or age 60+ yrs) (1 - 1-dose 75+ series)2017Influenza Xmfgsst0812/19/2024 Medical Devices Not on file Insurance Care Teams Team MemberRelationshipSpecialtyStart DateEnd Scott Tai MD [address] [facility] [address] [place] [address] PCP - GeneralInternal Medicine11/23/19
--- OUTSIDE RECORDS SUMMARY | 2025-02-22 08:24 | XMS_ITS | Encounter Summary ---
Author Organization [facility] Address [address] [facility] [place] [address] Care Team Providers Care Sharepoint Application Developer Name Role Phone Scott Tai MD Unavailable [phone] Scott Tai MD Primary Care Provider [phone] Ruma Fernandes LPN Unavailable Encounter Details DateTypeDepartmentCare Team (Latest Contact Info)Kyppgyfpxgj65/29/2025bstract [facility] [address] [facility] [address] [place] [address] Scott Tai MD [address] [facility] [address] [place], [place] [address] Social History Tobacco UseTypesPacks/DayYears UsedDateSmoking Tobacco: NeverSmokeless Tobacco: NeverAlcohol UseStandard Drinks/WeekCommentsNot Currently0 (1 standard drink = 0.6 oz pure alcohol)Caffeine intake : 1-2 cups per day anmdpdM9081 Health LiteracyAnswerDate RecordedHow often do you need [...] relatives?Once a week11/10/2023How often do you attend anglican or restorationism services?1 to 4 times per year11/10/2023o you belong to any clubs or organizations such as anglican groups, unions, fraternal or athletic groups, or school groups?No11/10/2023How often do you attend meetings of the clubs or organizations you belong to?Never11/10/2023re you , , , , never , or living with a partner?Taosmkb4911/10/2023UDIT-C AnswerDate RecordedQ1: How often do you have [...] hard at all12/02/2022 PHQ-2AnswerDate RecordedPatient Health Questionnaire-2 Jtobq036[facility] [place] of Occupational Health - Occupational Stress QuestionnaireAnswerDate [...] you got the money to buymore. Never true12/02/2022Within the past 12 months, the food you [...] InformationValueDate RecordedSex Assigned at BirthNot on fileLegal VbwQxsa6607/02/2022 6:45 PM EDT Gender IdentityNot on fileSexual OrientationNot on filedocumented as of this encounter Plan of Treatment DateTypeDepartmentCare Team (Latest Contact Info)Dtacfmlbhzp14/30/2026 8:30 AM EDTOffice Visit [facility] [facility] [address] [facility] [address] [place] [address] Scott Tai MD [address] [facility] [address] [place] [address] documented as of this encounter Visit Diagnoses Not on filedocumented in this encounter Care Teams Team MemberRelationshipSpecialtyStart DateEnd Date Scott Tai MD [address] [facility] [address] [place] [address] PCP - Lashon PASCUAL04/20/21 Scott Tai MD [address] [facility] [address] [place] [address] PCP - GeneralInternal Medicine10/22/22 Ruma Fernandes LPN [address] [facility] [address] [place] [address] 07/08/24documented as of this encounter
--- OUTSIDE RECORDS SUMMARY | 2025-02-22 08:24 | XMS_ITS | Clinical Summary ---
Author Organization [facility] Address [address] [place] [address] Care Team Providers Care Boarding Room Fixer Name Role Phone Scott Tai MD Unavailable [phone] Scott Tai MD Primary Care Provider [phone] Ruma Fernandes LPN Unavailable Allergies No known active allergies Medications MedicationSigDispense QuantityRefillsLast FilledStart DateEnd DateStatus aspirin 81 MG EC tablet take 1 tablet (81MG) by oral route every day OralActive nitroglycerin (Nitrostat) 0.4 MG SL tablet 11/13/2021ctive Magnesium 400 MG capsule Take 1 capsule by mouth 1 (one) time each day.Active Multiple Vitamins-Minerals (PRESERVISION AREDS 2 PO) Take 1 tablet by mouth in the morning.Active lisinopril 20 MG tablet Take 20 mg by mouth Daily4Active atorvastatin (Lipitor) 40 MG tablet Indications:Mixed hyperlipidemiaTAKE 1 TABLET BY MOUTH EVERYDAY AT BEDTIME 100 tablet 4Active isosorbide mononitrate ER (Imdur) 30 MG 24 hr tablet Indications:Chronic systolic CHF (congestive heart failure), NYHA class 2 (HCC) TAKE 1 TABLET BY MOUTH EVERY DAY 100 tablet 5Active carvedilol (Coreg) 6.25 MG tablet Indications:Chronic systolic CHF (congestive heart failure), NYHA class 2 (HCC) TAKE 1 TABLET BY MOUTH EVERY MORNING AND EVENING WITH MEALS 180 tablet 1085Active dapagliflozin (Farxiga) 10 MG Take 10 mg by mouth Daily506Active pantoprazole (ProtoNix) 40 MG EC tablet Take 40 mg by mouth in the morning. Take before meals.5Active sildenafil (Viagra) 100 MG tablet Indications:Erectile dysfunction, unspecified erectile dysfunction typeTake 1 tablet (100 mg) by mouth Daily as needed for erectile dysfunction 10 tablet 5Active Active Problems ProblemNoted DateDiagnosed DatePresence of intraocular lens12/12/2024hronic GERD11/28/2024Regular astigmatism, qbaswabod15/27/2023ilateral hearing loss 02/19/2023Ischemic exauttlbtsejlk48/22/2023 Overview (03/16/2023): Patient has an extensive history of CAD. His last known EF was 40%. That was in April 2020. Last Assessment & Plan: As above Atherosclerotic heart disease of [place] coronary artery without angina pectoris 10/23/2022trial enlargement, crlstvsak83/06/2023asal cell carcinoma of back 10/23/2022enign essential pzgamnnzxepu54/06/2023enign prostatic hyperplasia with lower urinary tract culwbgdw69/06/2023ardiac yeroquduyj12/06/2023arpal tunnel syndrome of right wrist10/23/2022hronic recurrent rqewqcroblod35/06/2023 Chronic systolic CHF (congestive heart failure), NYHA class Diverticulosis of colon10/23/20223776Sbmijtknx39/06/2023Elevated PSA10/23/2022 History of coronary artery bypass graft10/23/20220071Rlulqwtjowdiqp96/06/2023 Impotence of organic lmcvsx1610/23/2022Intermediate stage nonexudative age-related macular degeneration of both eyes10/23/20224790Krudmkcp94/06/2023Nuclear sclerosis of both eyes10/23/2022Old myocardial pkizwjgetv43/06/2023Overweight (BMI 25.0-29.9)10/23/2022ancreatic nqnilxxnihbhe10/06/2023Sensorineural hearing loss, kmuqyukcq24/06/2023Squamous cell carcinoma of left hand10/23/2022Mitral valve erfuetxsqipci41/06/2023Tricuspid valve zghrhpunykxbc35/06/2023Stage 3a chronic kidney byexuke1810/23/20223900Fwwndij04/04/2023 Resolved Problems ProblemNoted DateDiagnosed DateResolved DateIdiopathic chronic pancreatitis /ardiovascular stress test ghssamfl97/hest pain/1441Wvqgsyt28/04/202309/History of hypertension /Hypertensive lacxylky24/oronary zmtsgjfustnbibpm27/04/202309/ Encounters DateTypeDepartmentCare OkhsOwoliyaltnn34/29/2025bstract [facility] [address] [facility] [address] [place] [address] Scott Tai MD 02/07/2025[facility] [address] [place] [address] Ruma Fernandes LPN 01/16/2025 8:30 AM EDTOffice Visit [facility] [address] [facility] [address] [place] [address] Scott Tai MD Chronic systolic (congestive) heart failure (HCC) (Primary Dx); Chronic kidney disease, stage 3a (CMS-HCC); Atherosclerosis of [place] coronary artery of [place] heart without angina pectoris ; Benign essential vpyuklofruof15/29/2025amboo flowsheet [facility] [address] [facility] [address] [place] [address] Scott Tai MD 01/16/20257015Bnkuqn66/25/2025[facility] [address] [place] [address] Ruma Fernandes LPN 12/12/2024 9:30 AM EDTOffice Visit [facility] [address] [facility] [address] [place] [address] Joanna Perez PA Chronic systolic (congestive) heart failure (HCC) (Primary Dx); Dizziness; Erectile dysfunction, unspecified erectile dysfunction type; Right inguinal pain12/12/20241046Yhwded60/25/2025bstract [facility] [address] [facility] [address] [place] [address] Scott Tai MD 12/12/2024bstract [facility] [address] [facility] [address] [place] [address] Scott Tai MD 12/01/2024Patient Outreach [facility] [address] [place] [address] Ruma Fernandes LPN 12/01/2024bstract [facility] [address] [place] [address] Ruma Fernandes LPN 11/25/2024Refill [facility] [address] [facility] [address] [place] [address] Joanna Perez PA Chronic systolic CHF (congestive heart failure), NYHA class 2 (HCC)from Last 3 Months Immunizations ImmunizationAdministration DatesNext TtjIuel6510/13/2017Zoster, Recombinant 05/21/2018Zoster, live10/28/2012 Family History Medical HistoryRelationNameCommentsNo Known ProblemsDaughterHeart diseaseFather HypertensionFatherHeart diseaseSiblingHypertensionSiblingNo Known ProblemsSon MelanomaNeg HxRelationNameStatusCommentsDaughter1 daughterFatherDeceasedMother AliveSiblingSon2 sons Social History Tobacco UseTypesPacks/DayYears UsedDateSmoking Tobacco: NeverSmokeless Tobacco: Never Tobacco Cessation:Counseling Given: Not Answered Alcohol UseStandard Drinks/WeekCommentsNot Currently0 (1 standard drink = 0.6 oz pure alcohol)Caffeine intake : 1-2 cups per day ezdlieM4858 Health Literacy AnswerDate RecordedHow often do you need to have someone help you when you read instructions, pamphlets, or other written material from your doctor or pharmacy? Never11/10/2023Humiliation, Afraid, Rape, and Kick questionnaireAnswerDate RecordedWithin the last year, have you been [...] relatives?Once a week11/10/2023How often do you attend adventism or jew services?1 to 4 times per year11/10/2023o you belong to any clubs or organizations such as adventism groups, unions, fraternal or athletic groups, or school groups?No11/10/2023How often do you attend meetings of the clubs or organizations you belong to?Never11/10/2023re you , , , , never , or living with a partner?Axriykp9711/10/2023UDIT-C AnswerDate RecordedQ1: How often do you have [...] hard at all12/02/2022 PHQ-2AnswerDate RecordedPatient Health Questionnaire-2 Aakvk898Finalta [facility] [place] of Occupational Health - Occupational Stress QuestionnaireAnswerDate [...] steady place to sleep or slept in [facility] (including now)?No12/02/2022Sex and Gender InformationValueDate RecordedSex Assigned at BirthNot on fileLegal UctYmet8007/02/2022 6:45 PM EDT Gender IdentityNot on fileSexual OrientationNot on file Last Filed Vital Signs Vital SignReadingTime TakenCommentsBlood Yaxjtigq409/7209 8:25 AM EDT Tqurd2532 8:25 AM UUPKabenyjtobq12.2 ??C (97.2 ??F)06/05/2023 1:04 PM ESTRespiratory Apdt0658 9:25 AM EDTOxygen Klfvutxwyl62%01/16/2025 8:25 AM EDTInhaled Oxygen Concentration--Ysydsw47.6 kg (149 lb)01/16/2025 8:25 AM EDT Zpsxnw532.6 cm (5' 4 )01/16/2025 8:25 AM EDTBody Mass Index25.5809 8:25 AM EDT Plan of Treatment DateTypeDepartmentCare Team (Latest Contact Info)Uakyglfvogc16/30/2026 8:30 AM EDTOffice Visit [facility] [place] [facility] [address] [facility] [address] [place] [address] Scott Tai MD [address] [facility] [address] [place] [address] Health MaintenanceDue DateLast DoneCommentsCOVID-19 Vaccine ( season) /06/2020, 10/30/2020Medicare Annual Wellness (AWV)05/04/2025 05/04/2024, 01/08/2023Influenza VaccineDiscontinuedPneumococcal Vaccine: 65+ YearsDiscontinued Insurance Care Teams Team MemberRelationshipSpecialtyStart DateEnd Scott Tai MD [address] [facility] [address] [place] [address] PCP - Lashon PASCUAL04/20/21 Scott Tai MD [address] [facility] [address] [place] [address] PCP - GeneralInternal Medicine10/22/22 Ruma Fernandes LPN 112 [facility] 110 [place] [address] 07/08/24
--- OUTSIDE RECORDS SUMMARY | 2025-02-22 08:26 | XMS_ITS | CCD ---
Author Organization [facility] Care Team Providers Care Commercial Field Inspector Name Role Phone PHYSICIAN, DEFAULT Admitting Unavailable PHYSICIAN, DEFAULT Attending Unavailable SCOTT TAI Primary Care Unavailable VIDAL ODOM Attending Unavailable VIDAL ODOM Admitting Unavailable SCOTT TAI Primary Care Unavailable PADMA PRADO Referring Unavailable ND Procedure Practitioner Unavailab BINDU Romero Surgeon Unavailable [...] Carlton Galindo Consulting Unavailable Driss Smith Unavailable [phone] Scott Tai MD Unavailable Scott Tai MD Primary Care Provider Nicole Ojeda Attending Unavailable Nicole Ojeda Admitting Unavailable Candi Clark Consulting Unavailable Candi Clark Consulting Unavailable Candi Clark Consulting Unavailable Candi Clark Consulting Unavailable MD Candi Clark Consulting Unavailab SCOTT Lugo Primary Care Physician Nicole Ojeda Admitting Unavailable Nicole Ojeda Attending Unavailable Candi Clark Consulting Unavailable Candi Clark Consulting Unavailable MD Candi Clark Consulting Unavailab Candi Washington Consulting Unavailable Fernandes INSURANCE EXECUTIVE, Ruma Unavailable Unavailable Fernandes INSURANCE EXECUTIVE, Ruma Unavailable Jazmin White Attending Unavaila CANDI Mendoza Attending Unavailable EARL APTRICK Attending Unavailable Fritz Deluca Attending Unavailable Sarmini, Wu Talal Referring Unavaila ble Sarmini, Wu Talal Attending Unavaila ble Sarmini, Wu Talal Admitting Unavaila ble JOANNA OLVERA Attending Unavailable SCOTT TAI Attending Unavailable DEBBI MURCIA Attending Unavailable Sarmini, Wu Talal Admitting Unavaila ble Sergeymini, Wu Talal Attending Unavaila ble Agustina Reyes Attending Unavailable Agustina Reyes Attending Unavailable Sarmini, Wu Talal Admitting Unavaila ble Sarmini, Wu Talcarolyn Attending Unavaila ble Sarmini, Wu Talal Referring Unavaila ble Shelley Gilmore RN Unavailable SergeyminJazmin burrows Talcarolyn Attending Unavaila ble Sarmini, Wu Talal Admitting Unavaila ble Allergies Allergy ClassificationReported Allergen(s)Allergy TypeDate of OnsetReaction(s) Facility (1 source)01439,00Drug allergy (disorder)83-00-6378Bat [facility] Repository Medications Current Medications MedicationDrug Class(es)DatesSig (Normalized)Sig (Original)amylase 731570 unt / lipase 09363 unt / protease 606056 unt delayed release oral capsule (5 sources)Start: 18-31-9409gdbi 1 capsule by mouth every eight hoursCreon 94825-653413 UNIT 1 CAPSULE Orally THREE TIMES A DAY for 30 days Sep, Activetake 11813-35249 [IU] by mouth three times daily at mealtimepancrelipase, Bmu-Ehtn-Aqfm, (Creon) 40593-29488 units capsule Take by mouth 3 (three) times a day with meals. 0 Activeaspirin 81 mg delayed release oral tablet (20 sources)Platelet Aggregation Inhibitor, Nonsteroidal Anti-inflammatory Drug Start: 95-41-4977eydhsqm 81 mg Oral EC Tab 81 mg = 1 tab(s), Oral, Daily, Please make sure that aspirin is always enteric coated. May resume on 09/03 if no bleeding, # 30 tab(s), Refills(s) 0 Start Date: 09/02/24 Status: Ordered Medication Dispense Status: Completed Quantity: 30.0 Unit: tab(s) Total Allowed Fills: 1Fills Dispensed: 0carvedilol 6.25 mg oral tablet (20 sources)alpha-Adrenergic Kary, beta-Adrenergic BlockerStart: 05-30-2024 take 1 tablet by mouth once daily at mealtimecarvedilol (Coreg) 6.25 MG tablet Indications: Chronic systolic CHF (congestive heart failure), NYHA class 2 (HCC) TAKE 1 TABLET BY MOUTH EVERY MORNING AND EVENING WITH MEALS 180 tablet 1 11/25/2024 ActiveStart: 20-64-0337orxu 1 tablet by mouth at mealtimecarvedilol (Coreg) 6.25 MG tablet Indications: Chronic systolic CHF (congestive heart failure), NYHA class 2 (CMS/HCC) TAKE 1 TABLET BY MOUTH IN THE MORNING AND IN THE EVENING WITH MEALS 180 tablet ActiveStart: 77-17-2396pgoq 1 tablet by mouth in the morningcarvedilol (Coreg) 12.5 MG tablet Take 12.5 mg by mouth in the morning and 12.5 mg in the evening. Take with meals. 0 05/23/2023 Activetake 1 tablet by mouth every twelve hoursCarvedilol 25 MG 1 tablet with food Orally Twice a day Activeclopidogrel 75 mg oral tablet (19 sources)P2Y12 Platelet InhibitorStart: 07-20-2023 End: 32-65-8200kaqb 1 tablet by mouth once daily, then take 0.3382415608031354 tablet by mouth in the morningclopidogrel 75 mg Tab 75 mg = 1 tab(s), Oral, Daily, May resume on 09/05 have labs drawn in a.m. and call PCP for hemoglobin results and to confirm resuming plavix. Start Date: 08/31/24 Status: Ordered Repeat number: 1dapagliflozin 10 mg oral tablet (5 sources)Sodium-Glucose Cotransporter 2 InhibitorStart: 11-03-2024 End: 18-96-5000hlpy 10 mg by mouth once dailydapagliflozin (Farxiga) 10 MG Take 10 mg by mouth Daily 11/03/2024 11/03/2025 Activeesomeprazole 40 mg delayed release oral capsule (1 source)Proton Pump InhibitorStart: 09-30-2024 End: 13-32-6417dcxw 1 capsule by mouth once dailyNexium 40 mg Cap-EC 40 mg, Oral, Daily, Pharmacy may substitue PPI covered by insurance company, X 90 day(s), # 90 cap(s), Refills(s) 3, Pharmacy: [facility]/pharmacy #[id number], 162, cm, 09/30/24 9:26:00 EDT, Height/Length Dosing, 67.2, kg, 09/30/24 9:26:00 EDT, Weight Dosing Start Date: 09/30/24 Stop Date: 09/25/25 Status: Ordered Quantity: 90.0 Unit: cap(s) Repeat number: 4Hepatic panel, CBC (3 sources)Start: 29-90-9117Nalgmgm panel, CBC Hepatic panel, CBC, Have labs on 09/05, Print Requisition, Supply Start Date: 09/02/24 Status: Ordered Medication Dispense Status: Completed Total Allowed Fills: 1 Fills Dispensed: 0Start: 47-87-5188Tkxegch panel, CBC Hepatic panel, CBC, Have labs on 09/05, Print Requisition, Supply Start Date: 09/02/24 Status: Ordered Repeat number: 1 hydrALAZINE hydrochloride 25 mg oral tablet (2 sources)Arteriolar Vasodilatortake 1 tablet by mouth every eight hours hydrALAZINE HCl 25 MG 1 tablet with food Orally Three times a day Tspqvr83 hr isosorbide mononitrate 30 mg extended release oral tablet (20 sources)Nitrate VasodilatorStart: 81-27-8039athy 1 tablet by mouth once dailyisosorbide mononitrate 30 mg ER Tab TAKE 1 TABLET BY MOUTH EVERY DAY, High blood pressure Start Date: 08/31/24 Status: Ordered Medication Dispense Status: Completed Total Allowed Fills: 1 Fills Dispensed: 0Start: 96-87-0291nryp 1 tablet by mouth once dailyisosorbide mononitrate ER (Imdur) 30 MG 24 hr tablet Indications: Chronic systolic CHF (congestive heart failure), NYHA class 2 (CMS/HCC) TAKE 1 TABLET BY MOUTH EVERY DAY 90 tablet 3 06/09/2023 Activetake 1 tablet by mouth once dailyisosorbide mononitrate ER (Imdur) 30 MG 24 hr tablet TAKE 1 TABLET BY MOUTH EVERY DAY for 90 0 Activelisinopril 20 mg oral tablet (20 sources)Angiotensin Converting Enzyme InhibitorStart: 96-45-5286aiuj 1 tablet by mouth once dailylisinopril 20 MG tablet Take 20 mg by mouth Daily 12/12/2023 ActiveStart: 06-08-2023 End: 92-89-3440gefk 1 tablet by mouth in the morninglisinopril 10 MG tablet Indications: Benign essential hypertension (CMS/HCC) Take 1 tablet (10 mg) by mouth in the morning. 06/08/2023 01/13/2024 Discontinued (Dose adjustment)Start: 70-40-8262ovvm 1 tablet by mouth in the morninglisinopril 20 MG tablet Take 20 mg by mouth in the morning. 0 05/23/2023 Activetake 1 tablet by mouth every twenty-four hoursLisinopril 40 MG 1 tablet Orally Once a day ActiveMagnesium (18 sources)take 1 capsule by mouth once dailyMagnesium 400 MG capsule Take 1 capsule by mouth 1 (one) time each day. Activetake 1 capsule by mouth once daily Magnesium 400 MG capsule Take 1 capsule by mouth 1 (one) time each day. 0 Active magnesium oxide 400 mg oral tablet (3 sources)Start: 32-76-1294akrtkeoua oxide 400 mg Tab 800 mg = 2 tab(s), Oral, Refills(s) 0, Prophylaxis Start Date: 08/31/24 Status: Ordered Medication Dispense Status: Completed Total Allowed Fills: 1 Fills Dispensed: 0meclizine hydrochloride 25 mg oral tablet (7 sources)AntiemeticStart: 11-30-2024 End: 14-78-7739wrkr 1 tablet by mouth three times daily as needed for dizziness meclizine (Antivert) 25 MG tablet Indications: Dizziness Take 1 tablet (25 mg) by mouth 3 (three) times a day as needed for dizziness 12/12/2024 01/16/2025 DiscontinuedmethylPREDNISolone (2 sources)CorticosteroidStart: 05-27-2023 End: 97-91-2694azcujiZADIRRQgbpkc (Medrol Dospak) 4 MG tablets Indications: Right cervical radiculopathy Follow schedule on package instructions 21 tablet 0 05/27/2023 06/03/2023 ActiveMultiple Vitamins-Minerals (PRESERVISION AREDS 2 PO) (18 sources)take 1 tablet by mouth in the morningMultiple Vitamins-Minerals (PRESERVISION AREDS 2 PO) Take 1 tablet by mouth in the morning. Activetake 1 tablet by mouth in the morningMultiple Vitamins-Minerals (PRESERVISION AREDS 2 PO) Take 1 tablet by mouth in the morning. 0 Activenitroglycerin 0.4 mg sublingual tablet (20 sources)Nitrate VasodilatorStart: 56-23-3872ujcmvtmwxannz (Nitrostat) 0.4 MG SL tablet 11/13/2021 Activepantoprazole 40 mg delayed release oral tablet (15 sources)Proton Pump InhibitorStart: 12-01-2024 End: 02-03-8500znzg 1 tablet by mouth before mealtimepantoprazole (ProtoNix) 40 MG EC tablet Take 40 mg by mouth in the morning. Take before meals. 12/01/2024 ActiveStart: 34-82-0953ngzf 1 tablet by mouth twice dailyPantoprazole [address] Tab 40 mg = 1 tab(s), Oral, BID, # 60 tab(s), Refills(s) 0, Pharmacy: [facility] #[id number], 162.6, cm, 08/31/24 22:50:00 EDT, Height/Length Dosing, 66.6, kg, 08/31/24 22:50:00 EDT, Weight Dosing Start Date: 09/02/24 Status: Ordered Quantity: 60.0 Unit: tab(s) Repeat number: 1Start: 03-16-2023 End: 91-67-7967xbef 1 tablet by mouth in the morningpantoprazole (ProtoNix) 40 MG EC tablet Indications: Dyspepsia Take 1 tablet (40 mg) by mouth in the morning. Do not crush, chew, or split.. 90 tablet 3 03/16/2023 01/13/2024 Discontinuedtake 1 tablet by mouth every twenty-four hoursPantoprazole Sodium 40 MG 1 tablet Orally Once a day Activesildenafil 100 mg oral tablet (8 sources)Phosphodiesterase 5 InhibitorStart: 12-12-2024 End: 10-19-8757cuxq 1 tablet by mouth once daily as neededsildenafil (Viagra) 100 MG tablet Indications: Erectile dysfunction, unspecified erectile dysfunctio n type Take 1 tablet (100 mg) by mouth Daily as needed for erectile dysfunction 10 tablet 12/12/2024 ActiveStart: 09-16-2023 End: 33-39-1343chfy 1 tablet by mouth once daily as neededsildenafil (Viagra) 50 MG tablet Indications: Erectile dysfunction, unspecified erectile dysfunction type Take 1 tablet (50 mg) by mouth Daily as needed for erectile dysfunction (Do not take on Nitroglycerine on the same day this is taken) 10 tablet 11 09/16/2023 01/13/2024 Discontinuedspironolactone 25 mg oral tablet (9 sources)Aldosterone AntagonistStart: 09-05-2024 End: 11-00-8942vcok 1 tablet by mouth in the morningspironolactone (Aldactone) 25 MG tablet Indications: Chronic systolic (congestive) heart failure (HCC) Take 1 tablet (25 mg) by mouth in the morning. 12/12/2024 01/16/2025 Discontinued Spironolactone 25 MG 1 tablet Orally ActiveStool Hpylori antigen (3 sources)Start: 17-04-9190Rdlpu Hpylori antigen Stool Hpylori antigen, Please send stool sample cup and depressor for collection and to drop off at hospital, Print Requisition, Supply Start Date: 09/02/24 Status: Ordered Medication Dispense Status: Completed Total Allowed Fills: 1 Fills Dispensed: 0Start: 76-41-5134Qtwwr Hpylori antigen Stool Hpylori antigen, Please send stool sample cup and depressor for collection and to drop off at hospital, Print Requisition, Supply Start Date: 09/02/24 Status: Ordered Repeat number: 1sucralfate 1000 mg oral tablet (4 sources)Aluminum ComplexStart: 09-02-2024 End: 74-51-3981crys 1 tablet by mouth four times daily for constipationCarafate 1 gram Tab 1 gm = 1 tab(s), Oral, QID, Monitor for constipation, X 30 day(s), # 120 tab(s), Refills(s) 0, Pharmacy: [facility]/pharmacy #[id number], 162.6, cm, 08/31/24 22:50:00 EDT, Height/Length Dosing, 66.6, kg, 08/31/24 22:50:00 EDT, Weight Dosing Start Date: 09/02/24 Stop Date: 10/02/24 Status: Ordered Quantity: 120.0 Unit: tab(s) Repeat number: 1 End: 18-02-1562oxqltrptfz (Carafate) 1 g tablet Take 1 g by mouth in the morning and 1 g at noon and 1 g in the evening and 1 g before bedtime. Take before meals. 12/12/2024 Discontinued (Therapy completed)tadalafil 20 mg oral tablet (4 sources)Phosphodiesterase 5 InhibitorStart: 02-11-2024 End: 78-68-6672utgn 1 tablet by mouth once daily as neededtadalafil (Cialis) 20 MG tablet Indications: Impotence of organic origin Take 1 tablet (20 mg) by mo [place] Daily as needed for erectile dysfunction 10 tablet 02/11/2024 05/04/2024 Discontinued (Therapy completed) Completed/Discontinued Medications MedicationDrug Class(es)DatesSig (Normalized)Sig (Original)atorvastatin 40 mg oral tablet (20 sources)HMG-CoA Reductase InhibitorStart: 65-74-0541tdqn 1 tablet by mouth once daily at bedtimeatorvastatin 40 mg Tab 80 mg = 2 tab(s), TAKE 1 TABLET BY MOUTH EVERYDAY AT BEDTIME, High cholesterol Start Date: 08/31/24 Status: Ordered Medication Dispense Status: Completed Total Allowed Fills: 1 Fills Dispensed: 0 Start: 55-82-1934rntu 1 tablet by mouth once daily at bedtimeatorvastatin (Lipitor) 40 MG tablet Indications: Mixed hyperlipidemia (CMS/HCC) TAKE 1 TABLET BY MOUTH EVERYDAY AT BEDTIME 90 tablet 3 04/21/2023 Activetake 1 tablet by mouth every twenty-four hoursAtorvastatin Calcium 40 MG 1 tablet Orally Once a day Active Problems Active Problems Problem ClassificationProblemDateDocumented DateEpisodic/Chronic Administrative/social admission (2 sources)Patient encounter status; Translations: [Other specified counseling] 45-61-2459UezufiepMtsfoex disorders (2 sources)Generalized anxiety disorderOnset: 618570-97-7698Zvsltcd Attention-deficit, conduct, and disruptive behavior disorders (2 sources)Attention deficit hyperactivity disorderOnset: ChronicCardiac dysrhythmias (20 sources)Cardiac arrhythmia; Translations: [Cardiac arrhythmia, unspecified] Onset: 969587-93-4544ZrikcwqIfrykdd dysrhythmias (1 source)Bradycardia, unspecified; Translations: [BRADYCARDIA UNSPECIFIED] Onset: 97-94-6482KgvcafirVoeklpew (20 sources)Nuclear sclerosis; Translations: [Age-related nuclear cataract, bilateral]Onset: 548991-53-7980NelmopvPhaocvs kidney disease (20 sources)Chronic kidney disease stage 3A ; Translations: [Stage 3a chronic kidney disease (HCC)]Onset: 027055-79-7212YmjjhqtPsvgdpq obstructive pulmonary disease and bronchiectasis (2 sources)Chronic obstructive lung diseaseOnset: hronic Conditions associated with dizziness or vertigo (2 sources)Dizziness; Translations: [Dizziness and giddiness]03-45-9363Hjurjika Conduction disorders (2 sources)Left bundle branch blockOnset: 589001-98-0474VdmhthyKumdgolsrf heart failure; nonhypertensive (20 sources)Chronic systolic heart failure; Translations: [Chronic systolic (congestive) heart failure]Onset: 301819-80-2860MgoqtgvQnsnyxok atherosclerosis and other heart disease (20 sources)Old myocardial infarction; Translations: [Atherosclerotic heart disease of habematolel coronary artery without angina pectoris]Onset: 05-02-2020 Resolved: 781803-17-8321GcqrchfEzoupjpivq and other anemia (3 sources)Anemia; Translations: [Anemia, unspecified]Onset: 53-28-2365Hszgtnjl Deficiency and other anemia (1 source)Anemia, unspecifiedOnset: 84-10-2357JkdebzeeSrgdgryk mellitus with complications (2 sources)Chronic kidney disease due to type 2 diabetes mellitusOnset: 834841-76-2999PxybqjrCrndqvocd of lipid metabolism (20 sources)Hyperlipidemia; Translations: [Hyperlipidemia, unspecified]Onset: 483581-11-6542HsfcoagYtkeiqcplpxzjt and diverticulitis (20 sources)Diverticulosis of colon; Translations: [Diverticulosis of large intestine without perforation or abscess without bleeding]Onset: 10-23-2022 02-03-0401TpwrbugRxibbfjaxi disorders (10 sources)Gastroesophageal reflux disease without esophagitis; Translations: [Gastro-esophageal reflux disease without esophagitis]Onset: 52-86-7139Ibsikyt Essential hypertension (20 sources)Essential (primary) hypertension; Translations: [Benign essential hypertension]Onset: 05-06-2021 Resolved: 55-06-5503NlujasoLwqqwhgluriwhlei hemorrhage (12 sources)Gastrointestinal hemorrhage, unspecified; Translations: [Melena] Onset: 85-26-1969AzutocfoCqqvz valve disorders (20 sources)Mitral valve regurgitation; Translations: [Nonrheumatic mitral (valve) insufficiency]Onset: 148099-75-3422MhyyrehDckvulpyoih of prostate (20 sources)Benign prostatic hyperplasia; Translations: [Benign prostatic hyperplasia with lower urinary tract symptoms]Onset: hronic Hypertension with complications and secondary hypertension (4 sources)Secondary hypertension; Translations: [Secondary hypertension, unspecified]Onset: 647447-77-6860QbevmzeUnbu disorders (2 sources)Mixed bipolar affective disorder, rlrl35-40-0387WoxxtarGxdws aftercare (1 source)manager home (current) use of aspirin; Translations: [MCFP CURRENT USE OF ASPIRIN]Onset: 57-28-7162AivtyxyhIdweu aftercare (1 source)Other half-way (current) drug therapy; Translations: [OTH MCFP CURRENT DRUG THERAPY]Onset: 22-53-6804RbmrqhrlHgfww aftercare (1 source)manager home (current) use of antithrombotics/antiplatelets; Translations: [MCFP ANTITHROMBOT/ANTIPLATLETS]Onset: 60-40-4074Wxfkjywp Other aftercare (1 source)Long-term current use of drug therapy; Translations: [Other law enforcement officer (current) drug therapy]Onset: 32-18-4946EetxmyfvSpgpc and ill-defined heart disease (20 sources)Bilateral enlargement of atria; Translations: [Cardiomegaly]Onset: 13-18-474490318157-77-3006VjawimdUeamo circulatory disease (2 sources)Orthostatic qwsgepmqgfj90-67-6106NtuxjeacRtxnz diseases of kidney and ureters (2 sources)Acute xbistbmprkz60-46-3554LlzabemrDsbxf ear and sense organ disorders (20 sources)Sensorineural hearing loss, bilateral; Translations: [Sensorineural hearing loss, bilateral]Onset: 716083-90-3904BdfhfyrYzmab ear and sense organ disorders (20 sources)Bilateral hearing loss; Translations: [Unspecified hearing loss, bilateral]Onset: 616544-50-6597GwmkynxIkmva gastrointestinal disorders (2 sources)Dark ispkxw04-73-6800CfiptxqmVntmi hereditary and degenerative nervous system conditions (2 sources)Fwokqczlyd26-12-2881ZfbgediGsayg liver diseases (2 sources)Liver disease, unspecified; Translations: [LIVER DISEASE UNSPECIFIED] Onset: 61-51-6262JtajbiyDvhum liver diseases (4 sources)Lesion of liver; Translations: [Liver disease, unspecified]09-29-2024 ChronicOther lower respiratory disease (2 sources)Fibrosis of lungOnset: 416207-90-8021FzjjoocTyhuz male genital disorders (18 sources)Secondary erectile dysfunction; Translations: [Male erectile dysfunction, unspecified]Onset: 005051-72-4086XkisgvgXsbsv male genital disorders (2 sources)Male erectile dysfunction, unspecified; Translations: [Impotence of organic origin]18-36-8708PkrvrloCggdu nervous system disorders (20 sources)Carpal tunnel syndrome of right wrist; Translations: [Carpal tunnel syndrome, right upper limb]Onset: 792256-73-5934RjafddyVbhsw nutritional; endocrine; and metabolic disorders (1 source)Hypocalcemia; Translations: [Hypocalcemia]Onset: 97-85-5983Wpghtrl Other upper respiratory disease (2 sources)Congestion of nasal deidl70-37-0333WrwvxqefJeysmukdxv disorders (not diabetes) (20 sources)Recurrent pancreatitis; Translations: [Other chronic pancreatitis] Onset: 10-23-2022 Resolved: 475197-12-9609DtydeyjVqfq-; endo-; and myocarditis; cardiomyopathy (except that caused by tuberculosis or sexually transmitted disease) (2 sources)CardiomyopathyOnset: 798811-61-2913TauoydaYgthsmub codes; unclassified (2 sources)Obstructive sleep apnea xfwrjjto80-08-1091SzrsdjpHtukwfmn codes; unclassified (1 source)Acquired absence of other specified parts of digestive tract; Translations: [ACQ ABSENCE OTH PART DIGESTV TRACT]Onset: 96-00-8889Yqivbvgs Retinal detachments; defects; vascular occlusion; and retinopathy (20 sources)Nonexudative age-related macular degeneration; Translations: [Nonexudative age-related macular degeneration, bilateral, intermediate dry stage]Onset: 658637-94-1288TnbpwvrDdqsqbxnyjl; intervertebral disc disorders; other back problems (2 sources)Cervical spondylosis without myelopathyOnset: ChronicSpondylosis; intervertebral disc disorders; other back problems (2 sources)Right cervical root neuropathy; Translations: [Radiculopathy, cervical region]61-95-0035VejytqyoPapwfwa disorders (2 sources)HypothyroidismOnset: hronic Past or Other Problems Problem ClassificationProblemDateDocumented DateEpisodic/ChronicAbdominal pain (20 sources)Epigastric pain; Translations: [Unspecified abdominal pain]Onset: 48-85-8102XsiyuomeUvdis posthemorrhagic anemia (10 sources)Acute posthemorrhagic anemia; Translations: [Acute posthemorrhagic anemia]Onset: 108310-39-0652MdpvmgynHottytdv reactions (2 sources)Contact dermatitisOnset: 611047-88-6194JcpgnoopNelmvbw tract disease (2 sources)Calculus of gallbladder with cholecystitisOnset: EpisodicBlindness and vision defects (18 sources)Bilateral regular astigmatism; Translations: [Regular astigmatism, bilateral]Onset: 989101-10-5009QmjltknhThwtoqap atherosclerosis and other heart disease (5 sources)Presence of aortocoronary bypass graft; Translations: [Aortocoronary bypass graft present]Onset: 072002-00-5353DxymcpwyDwumxynmktszn symptoms and ill-defined conditions (18 sources)Nocturia; Translations: [Nocturia]Onset: 633614-85-7724 EpisodicLymphadenitis (2 sources)Generalized enlarged lymph nodesOnset: 556722-46-1889Xlwegmtf Malaise and fatigue (20 sources)Fatigue; Translations: [Other fatigue]Onset: 08-21-2022 Resolved: 762260-67-4531FmkqvwgwXqpjehy (2 sources)Candidal paronychiaOnset: 818407-15-4974NrdvcrsvBbqueucvwhd chest pain (20 sources)Chest pain; Translations: [Chest pain, unspecified]Onset: 08-21-2022 Resolved: 796429-28-8813JeqhxkoiDpppy circulatory disease (18 sources)H/O: hypertension; Translations: [Personal history of other diseases of the circulatory system]Onset: 08-21-2022 Resolved: 141166-64-2526OmpznvcfLnmvz connective tissue disease (2 sources)Full thickness rotator cuff tearOnset: 571782-89-6337Euegwtlh Other disorders of stomach and duodenum (2 sources)IndigestionOnset: 018707-57-8580QsiengbcNgxcz lower respiratory disease (1 source)Shortness of breath; Translations: [SHORTNESS OF BREATH]Onset: 94-84-2791BeebxnesXevgq lower respiratory disease (20 sources)Dyspnea; Translations: [Dyspnea, unspecified]Onset: 08-21-2022 87-94-0589JtbblvimFvwiy lower respiratory disease (2 sources)HypoxiaOnset: 456143-25-9994NxuzjjxuPqdhi non-epithelial cancer of skin (20 sources)Basal cell carcinoma of back; Translations: [Basal cell carcinoma of skin of other part of trunk]Onset: 201481-60-7349YeqfeyugOsiqf nutritional; endocrine; and metabolic disorders (18 sources)Body mass index 25-29 - overweight; Translations: [Overweight]Onset: 772632-07-5287RvhouyviWmybn screening for suspected conditions (not mental disorders or infectious disease) (20 sources)Other specified abnormal findings of blood chemistry; Translations: [Raised prostate specific antigen]Onset: 07-30-2021 Resolved: 020887-42-4674FiyyzhdpYyehi skin disorders (2 sources)Inflammatory dermatosisOnset: 147352-77-8517SpazjaqxTdevc upper respiratory infections (2 sources)Acute pharyngitisOnset: 813927-25-1567OgosczltDvzaakqwxo disorders (not diabetes) (20 sources)Pancreatic insufficiency; Translations: [Other specified diseases of pancreas]Onset: 690446-73-1276CdiolvtlAhkljvlef and history of mental health and substance abuse codes (3 sources)Personal history of nicotine dependence; Translations: [Ex-cigarette smoker]Onset: 768398-48-0316Ueyxbuiz Results Test NameValueInterpretationReference RangeFacilityCBC w/ Auto Diffon 02-14-2025 Anisocytosis Ql (Bld)PRESENTInvalid Interpretation CodeMemorial Health System Selby General HospitalComment on above:Performed By: #### [id number] #### [facility] [address], [place] [address]Fxcinuqb Absolute0.1 E9/LNormal0.0-0.2FAccess Hospital DaytonComment on above:Performed By: #### [id number] #### [facility] [address], [place] [address]Mjgasofxv/100 WBC (Bld)0.9 %Normal0.0-2.0[facility] HospitalComment on above:Performed By: #### [id number] #### [facility] [address], [place] [address]Hbw Absolute0.1 E9/LNormal0.0-0.5FAccess Hospital [place] Comment on above:Performed By: #### [id number] #### [facility] [address], [place] [address]Anhdfwpkbjr/100 WBC (Bld)1.1 %Normal0.0-8.0[facility] HospitalComment on above:Performed By: #### [id number] #### [facility] [address], [place] [address]Fokxdnkiafv distribution width (RBC) [Ratio]20.3 %High10.9-14.2 [facility] HospitalComment on above:Performed By: #### [id number] #### [facility] [address], [place] [address]Bitbbgcjex (Bld) [Volume fraction]35.1 %Low37.7-49.0[facility] HospitalComment on above:Performed By: #### [id number] #### [facility] [address], [place] [address]Igzoninesf (Bld) [Mass/Vol]10.8 g/dLLow13.5-17.5FAccess Hospital DaytonComment on above:Performed By: #### [id number] #### [facility] [address] [place] [address]Rrkvw Absolute1.8 E9/LNormal1.0-4.0[facility] Comment on above:Performed By: #### [id number] #### [facility] [address] [place] [address]Tcgpzxxvihr/100 WBC (Bld)20.0 %Utvofg31.0-50.0[facility] HospitalComment on above:Performed By: #### [id number] #### [facility] [address], [place] [address]VVT (RBC) [Entitic mass]18.8 pgLow27.0-34.0[facility] HospitalComment on above:Performed By: #### [id number] #### [facility] [address], [place] [address]LHLD (RBC) [Mass/Vol]30.9 g/dLLow31.4-36.0[facility] HospitalComment on above:Performed By: #### [id number] #### [facility] [address], [place] [address]DRE (RBC) [Entitic vol]61.0 fLLow80.0-100.0[facility] HospitalComment on above:Performed By: #### [id number] #### [facility] [address], [place] [address]Wdnm Absolute1.1 E9/LHigh0.2-1.0[facility] Comment on above:Performed By: #### [id number] #### [facility] [address], [place] [address]Gnwpipzoa/100 WBC (Bld)12.0 %Normal4.0-14.0[facility] HospitalComment on above:Performed By: #### [id number] #### [facility] [address] [place] [address]Hnziep Absolute5.9 E9/LNormal2.0-7.5FAccess [facility] [place] Comment on above:Performed By: #### [id number] #### [facility] [address] [place] [address]Rakcat Auto66.0 %Vkgqol01.0-75.0[facility] Comment on above:Performed By: #### [id number] #### [facility] [address] [place] [address]Rbkcmhbw830.0 E9/SEvnkby144.0-500.0[facility] Comment on above:Performed By: #### [id number] #### [facility] [address], [place] [address]Qamxdfxn mean volume (Bld) [Entitic vol]8.6 fLNormal6.4-10.8 [facility] HospitalComment on above:Performed By: #### [id number] #### [facility] [address], [place] [address]OwgoawrsnvshhHKWKWCXWxlgyjc Interpretation CodeMemorial Health System Selby General HospitalComment on above:Performed By: #### [id number] #### [facility] [address] [place] [address]RZM9.8 E12/LNormal4.3-5.9[facility] HospitalComment on above:Performed By: #### [id number] #### [facility] [address], [place] [address]IJS morphology finding Nom (Bld)SEE MORPHOLOGYInvalid Interpretation CodeMemorial Health System Selby General HospitalComment on above:Performed By: #### [id number] #### [facility] [address], [place] [address]ZMH6.9 E9/LNormal4.0-11.0[facility] HospitalComment on above:Performed By: #### [id number] #### [facility] [address] [place] [address]XBMdf 22-32-3759Camukfc [Mass/Vol]4.6 g/dLNormal3.3-5.0[facility] HospitalComment on above:Performed By: #### [id number] #### [facility] [address] [place] [address]Wuihdyu/Globulin [Mass ratio]1.5 {ratio}Normal1.1-2.2FAccess Hospital DaytonComment on above:Performed By: #### [id number] #### [facility] [address] [place] [address]Tiz Phos66 Int._Unit/LGrpxsn64-58EydagmMemorial Health System Selby General Hospital Comment on above:Performed By: #### [id number] #### [facility] [address], [place] [address]UBP30 Int._Unit/LNormal6-46[facility] HospitalComment on above:Performed By: #### [id number] #### [facility] [address], [place] [address]Minlm gap [Moles/Vol]11 mmol/LNormal6-16[facility] HospitalComment on above:Performed By: #### [id number] #### [facility] [address], [place] [address]VBF21 Int._Unit/LNormal5-43[facility] HospitalComment on above:Performed By: #### [id number] #### [facility] [address], [place] [address]Mrti Total1.1 mg/dLNormal0.0-1.1FAccess Hospital [place] Comment on above:Performed By: #### [id number] #### [facility] [address], [place] [address]CTP/Creat Ratio13 No BslycSpkoap62-69RfamjhMemorial Health System Selby General HospitalComment on above:Performed By: #### [id number] #### [facility] [address], [place] [address]Tyqapnl [Mass/Vol]9.6 mg/dLNormal8.9-11.1FAccess Hospital DaytonComment on above:Performed By: #### [id number] #### [facility] [address], [place] [address]Jvpkohij [Moles/Vol]106 mmol/YQvkaar961-173DietnlMemorial Health System Selby General HospitalComment on above:Performed By: #### [id number] #### [facility] [address], [place] [address]BC0 [Moles/Vol]26 mmol/FBluabg97-22ZtzxgwMemorial Health System Selby General Hospital Comment on above:Performed By: #### [id number] #### [facility] [address], [place] [address]Vsiqppmemz [Mass/Vol]1.2 mg/dLNormal0.5-1.3FAccess Hospital DaytonComment on above:Performed By: #### [id number] #### [facility] [address], [place] [address]Zddohlkq (S) [Mass/Vol]3.0 g/dLNormal1.4-4.0[facility] HospitalComment on above:Performed By: #### [id number] #### [facility] [address], [place] [address]Ztaveyz [Mass/Vol]87 mg/gVBwimav39-026AenypcMemorial Health System Selby General HospitalComment on above:Performed By: #### [id number] #### [facility] [address], [place] [address]Vfbikrguh [Moles/Vol]4.5 mmol/LNormal3.5-5.3FAccess Hospital DaytonComment on above:Performed By: #### [id number] #### [facility] [address], [place] [address]Gzqbtfv [Mass/Vol]7.6 g/dLNormal6.0-7.8[facility] HospitalComment on above:Performed By: #### [id number] #### [facility] [address], [place] [address]Fwcrqe [Moles/Vol]138 mmol/OSatbki794-884PwbhweMemorial Health System Selby General HospitalComment on above:Performed By: #### [id number] #### [facility] [address], [place] [address]Hvok nitrogen [Mass/Vol]16 mg/dLNormal5-21[facility] HospitalComment on above:Performed By: #### [id number] #### [facility] [address], [place] [address]Cwbqamcymr 38-31-2869Djgumvjc Lvl7 ng/gQVcd49-095PovxvdMemorial Health System Selby General HospitalComment on above:Performed By: #### [id number] #### [facility] [address], [place] [address]Gazeavacabpznkhz Office/Clinic Noteon 02-14-2025 Gastroenterology Office/Clinic NoteGastroenterology Office/Clinic Note Chief Complaint F/u EGD HPI Staff EST Dr. White Patient is a(n) 84 year old male who presents today for a follow up to EGD on 01/19/2025. Need to discuss repeat EGD. Pt taking Pantoprazole BID? Yes Denies any current black stools. Any blood thinners? aspirin Any GLP-1 agonists? no Laboratory Results CBC CMP Basophil Absolute: 0 [...] 85.6 fL (09/01/24) Chloride: 111 mmol/L (09/01/24) [place] Absolute: 0.6 E9/L (09/01/24) CO2: 22 mmol/L (09/01/24) [place] Auto: 8.6 % (09/01/24) Creatinine: 0.8 mg/dL [...] mcg/dL Low (09/02/24) TIBC: 395 mcg/dL (09/02/24) History of Present Illness I have reviewed the HPI obtained by staff and I verified the info taken, my notes are reflected in the assessment and plan Review of Systems PHQ Score Initial Depression Screen Score: 0 SCORE All systems reviewed, negative except as mentioned above Physical Exam Vitals & Measurements HR: 80(Peripheral) RR: 16 BP: 162/80 HT: 162 cm HT: 64 in WT: 70 kg WT: 154.323 lb BMI: 26.67 General: alert, no acute distress HEENT: atraumatic normocephalic Extremities: no deformity, no trauma Short term memory impaired, hard of hearing Procedure EGD 01/19/2025: Impression and Plan 1. Esophageal landmarks identified, small hiatal hernia, no esophagitis 2. Previously seen gastric ulcers healed up, minimal nonspecific gastritis in the antrum of the stomach, otherwise normal examined stomach 3. Normal examined duodenum Recommendations: -Resume previous diet -Resume home medications -Follow-up in GI clinic as needed EGD 12/01/2024: Impression and Plan 1. Esophageal landmarks identified, previously seen esophagitis completely healed up 2. Mild gastritis in the antrum of the stomach, multiple small clean-based ulcers in the antrum of the stomach, Jake class III. I biopsied the ulcers. In addition random gastric biopsies were alsotaken to rule out H. pylori 3. Normal examined duodenum Recommendations: -Resume previous diet -Increase pantoprazole to twice a day before meals, add Carafate 3 times a day, consider repeat EGDin 1 to 2 months to ensure ulcer is healing based on pathology results-Await pathology results, follow in GI clinic in 1-2 after discharge EGD 8 Pathology: Final Diagnosis (Verified) A: ANTRAL ULCER, BIOPSY: ??? SUPERFICIAL ANTRAL TYPE MUCOSA WITH FOVEOLAR HYPERPLASIA. ??? IMMUNOHISTOCHEMISTRY FOR HELICOBACTER PYLORI IS NEGATIVE. B: STOMACH, BIOPSY: ??? GASTRIC MUCOSA WITH MILD CHRONIC INFLAMMATION IN LAMINA PROPRIA. ??? NO INTESTINAL METAPLASIA. Assessment/Plan 1. Anemia (D64.9: Anemia, unspecified) PMHx of CAD status post CABG, on DAPT previously. Patient was evaluated previously at hospital w/ symptoms of dizziness, shortness of breath. He was noted to have acute anemia with hemoglobin down to 6.7 and reported black tarry stools. At that time, he had orthostatic hypotension, otherwise hemodynamically stable. He was found to have multiple clean-based ulcers on EGD in 08/2024 and EGD from 11/2024, h. pylori negative. He was treated w/ PPI and repeat EGD 01/2025 improved. Last dose of Plavix was 08/31, no longer on plavix He did not have blood work completed as ordered after September 2024 f/u. Denies melena at this time. Having normal BMs Not currently taking any oral iron supplements EGD 01/19/2025: Previously seen gastric ulcers healed up, minimal nonspecific gastritis in the antrum of the stomach - I reviewed EGD from 01/2025 with patient - I reprinted blood work order from 09/2024 and handed to patient to have completed; he will go today - Continue pantoprazole BID Ordered: Current tobacco non-user 1036F E&M of Est. Patient Low 20-29 Min 92577 Most recent diastolic blood pressure 80-89 mm Hg 3079F Most recent systolic blood pressure >= 140 mm Hg 3077F 2. Black (more content not included)...NormalMemorial Health System Selby General HospitalComment on above:Result Comment: Electronically Signed By: Eric ALONSO, Agustina Ziegler\.br\Date and Time Signed: 02/14/25 10:02 EDTIronon 53-82-8309Wnmh01 microgram/iHSpw47-544 [facility] HospitalComment on above:Performed By: #### [id number] #### [facility] [address], [place] [address]WGQD Calculatedon 73-95-4975YQJB617 microgram/nWEdns890-577 [facility] HospitalComment on above:Performed By: #### [id number] #### [facility] [address], [place] [address]Rxnhyavkxld [Mass/Vol]333 mg/oRNzovfr029-171SlozvaMemorial Health System Selby General HospitalComment on above:Performed By: #### [id number] #### [facility] [address], [place] [address]zQTHdp 83-84-7989rXHS42 mL/min/1.73 w7Mibekw>=59[facility] HospitalComment on above:Performed By: #### [id number] #### [facility] [address], [place] [address]Hwhf OR Intraoperative Recordon [id number] OR Intraoperative RecordMain OR Intraoperative Record IntraOp Document Type FT Summary Primary Physician: Jazmin White MD Finalized Date/Time: 01/20/25 13:48:18 Pt. Name: DESTINEYSKIP/Sex: 1940 Male Med Rec #: [id number] Physician: Jazmin White MD Financial #: [id number] Pt. 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 - Primary Scrub - Primary Time In 01/19/25 10:04:00 01/19/25 10:04:00 01/19/25 10:04:00 Time Out 01/19/25 10:15:00 01/19/25 10:15:00 01/19/25 10:15:00 Procedure EGD(.) EGD(.) EGD(.) Comments Last Modified By: Consuelo TONG, Kellie Cordero RN, Kellie Ramirez RN 01/19/25 10:15:21 F 01/19/25 10:15:21 F 01/19/25 10:15:21 Entry 4 Case Attendee Jazmin White MD Role Performed Surgeon - Primary Time In 01/19/25 10:04:00 Time Out 01/19/25 10:15:00 Procedure EGD(.) Comments Last Modified By: Kellie Cordero RN 01/19/25 10:15:21 Perioperative Protocols FT Pre-Care Text: Implements protective [...] (If Applicable) PreOp Antibiotic No Time Out Argentina Saavedra CRNA, Given Participants Consuelo TONG, Kellie Esposito, Niyah Longoria CST, Sarmini MD, Muhammad Talal Time Out Complete 01/19/25 10:06:00 Outcomes Met? Yes Last Modified By: Kellie Cordero RN 01/19/25 10:06:22 Post-Care Text: The patient is free from signs and symptoms of injury caused by extraneous objects Allergy Information FT Pre-Care Text: Verifies allergies Entry 1 Allergies Reviewed? Yes Allergies Reviewed Self/Patient With Outcomes Met? Yes Last Modified By: Kellie Cordero RN 01/19/25 10:05:53 Post-Care Text: The patient received appropriate medication(s) safely administered during the perioperative period Surgical Procedures FT Entry 1 Procedure Description Procedure EGD Modifiers . Surgeon Description EGD Primary Procedure Yes Primary Surgeon Jazmin White MD Start 01/19/25 10:09:00 Stop 01/19/25 10:11:00 Anesthesia Type General Surgical Service Gastroenterology Wound Class 2 - Clean-Contaminated Last Modified By: Kellie Cordero RN 01/19/25 10:11:14 General Case Data FT Pre-Care Text: Classifies surgical wound, implements aseptic technique, initiates traffic control Entry 1 Case Information OR ENDO 1 FT Case Level Level 2 Wound Class 2 - Clean-Contaminated Specialty Gastroenterology ASA Class 3 Preop Diagnosis Stomach ulcer Postop Same As Preop No Postop Diagnosis Hiatal hernia, gastritis Outcomes Met? Yes Last Modified By: Kellie Cordero RN 01/19/25 10:15:25 Post-Care Text: The patient is free from signs and symptoms of infection Skin Assessment (Pre Procedure) FT Pre-Care Text: Implements protective measures to prevent skin/ tissue injury due to thermal or mechanical sources Evaluates for signs and symptoms of physical injury to skin and tissue Entry 1 Skin Integrity Intact, [place], Warm, & Skin Abnormality No Dry Outcomes Met? Yes Last Modified By: Kellie Cordero RN 01/19/25 10:07:07 Post-Care Text: The patient is free from [...] Position Extended Positioning Device Safety Strap, Pillow Under Head Large Press Points Checked Yes By Kellie Cordero RN Outcomes Met? Yes Last Modified By (more content not included)...[facility] Discharge Instructionson [id number] InstructionsDischarge Instructions SKIP CABELLO Anny :1940 Visit Date:01/19/2025 Inpatient Discharge Instructions Your Care Team Admitting Physician - Jazmin White MD Referring Physician - Jazmin White MD Reason for Your Visit STOMACH ULCER Your Diagnosis Acute peptic ulcer This Is Your Medications List Misc Prescription (Hepatic panel, CBC) Misc Prescription (Stool Hpylori antigen) aspirin (aspirin 81 mg Oral EC Tab) atorvastatin (atorvastatin 40 mg Tab) carvedilol (carvedilol 6.25 mg Tab) isosorbide mononitrate (isosorbide mononitrate 30 mg ER Tab) lisinopril (lisinopril 20 mg Tab) magnesium oxide (magnesium oxide 400 mg Tab) pantoprazole (Pantoprazole [address] Tab) sucralfate (Carafate 1 gram Tab) Procedure History EGD - esophagogastroduodenoscopy (12/01/2024), EGD - esophagogastroduodenoscopy (09/01/2024). Discharge Vitals Temperature (Temporal Artery) 36.5 ???C Heart Rate (Monitored) 63 Respiratory Rate 16 Blood Pressure 101/62 Height 162 cm Weight 67.2 kg What to do next Instructions From Your Doctor Event Name Event Result Discharge Activity Resume normal activities in 24 hours Discharge Restrictions No driving for 24 hrs Discharge Diet(s) Regular Call Your Doctor For Persistent or heavy bleeding Discharge Instructions Discharge Instructions New Follow Up Appointments after Discharge Follow Up with Cindy KABA, STEPHIE Robledo, [facility] When: Comments: call if need anything Where: [facility] [address]ara, [address] [address] [phone] Medications What How Much When Instructions Next Dose Unchanged aspirin (aspirin 81 mg Oral EC Tab) 1 Tablets By Mouth Every day Please make sure that aspirin is always enteric coated. May resume on if no bleeding Unchanged atorvastatin (atorvastatin 40 mg Tab) 2 Tablets TAKE 1 TABLET BY MOUTH EVERYDAY AT BEDTIME Unchanged carvedilol (carvedilol 6.25 mg Tab) 1 Tablets 2 times a day TAKE 1 TABLET BY MOUTH EVERY MORNING AND EVENING WITH MEALS Unchanged isosorbide mononitrate (isosorbide mononitrate 30 mg ER Tab) TAKE 1 TABLET BY MOUTH EVERYDAY Unchanged lisinopril (lisinopril 20 mg Tab) 1 Tablets By Mouth Every day Hold for systolic blood pressure 110 or less Unchanged magnesium oxide (magnesium oxide 400 mg Tab) 2 Tablets By Mouth Unchanged Misc Prescription (Hepatic panel, CBC) 0 Have labs on Unchanged Misc Prescription (Stool Hpylori antigen) 0 Please send stool sample cup and depressor for collection and to drop off at hospital Unchanged pantoprazole (Pantoprazole [address] Tab) 1 Tablets By Mouth Twice a day (before meals) Duration: 90 Days Unchanged sucralfate (Carafate 1 gram Tab) 1 Tablets By Mouth 4 times a day Duration: 14 Days Test Results No qualifying data available. Allergies No Known Allergies Problems Ongoing - [...] Dyskinesia Dyspnea Ex-cigarette smoker Fibrosis of lung Full thickness rotator cuff tear Gastroesophageal reflux disease without esophagitis Gastrointestinal hemorrhage Generalized anxiety disorder Generalized enlarged lymph nodes Hyperlipidemia Hypothyroidism Hypoxia Indigestion Inflammatory dermatosis Left bundle branch block Lesion of liver Mixed bipolar affective disorder, mild Mixed hyperlipidemia Obstructive sleep apnea syndrome Orthostatic hypotension Historical - Any problem that you are no longer receiving treatment for. Atypical chest pain Coronary atherosclerosis Fatigue Education Materials Colonoscopy Care After Surgery Please read the instructions outlined below and refer to this sheet in the next few weeks. These discharge instructions provide you with general information on caring for yourself after you leave thespital. Your doctor may also give you specific instructions. While your treatment has been planned according to the most current medical practices available, unavoidable complications occasionally occur. If you have any problems or questions after discharge, p (more content not included)...[facility] HospitalComment on above:Result Comment: Electronically Signed By: Peggy Perry RN\.tom\Date and Time Signed: 01/19/25 10:25 EDTInpatient Patient Summaryon [id number] Patient SummaryInpatient Patient Summary [place] [id number] [facility] Clinical Discharge Instructions PERSON INFORMATION Name: SKIP CABELLO [facility] Admitting Physician: Jazmin White MD Attending Physician: Jazmin White MD PCP: SCOTT TAI MD Discharge Diagnosis: Acute peptic ulcer Comment: PATIENT EDUCATION INFORMATION Instructions: Medication Leaflets: Follow up: MEDICATION LIST Medications to Continue with No Changes Other Medications aspirin (aspirin 81 mg Oral EC Tab) [...] MOUTH EVERY MORNING AND EVENING WITH MEALS. isosorbide mononitrate (isosorbide mononitrate 30 mg ER Tab) TAKE 1 TABLET BY MOUTH EVERY DAY. lisinopril (lisinopril 20 mg Tab) 1 Tablets By Mouth every day. Hold for systolic blood pressure 110 or less. magnesium oxide (magnesium oxide 400 mg Tab) 2 Tablets By Mouth., patient [place] 840 mg [place] mouth [place] [facility] [place]atic panel, CBC) 0. Have labs on 09/05. Refills: 0., Results to Dr. White and [place] [facility] [place] (Stool Hpylori antigen) 0. Please send stool sample cup and depressor for collection and to drop off at hospital. Refills: 0., Results to Dr. White and PCP pantoprazole (Pantoprazole [address] Tab) 1 Tablets By Mouth twice a day (before meals) for 90 Days.Refills: 3. sucralfate (Carafate 1 gram Tab) 1 Tablets By Mouth 4 times a day for 14 Days. Refills: 3. Comment:[facility] HospitalMain OR PACU I Recordon [id number] OR PACU I RecordMain OR PACU I Record PACU Phase I Document Type FT Summary Primary Physician: Jazmin White MD Finalized Date/Time: 01/19/25 11:06:56 Pt. Name: SKIP CABELLO/Sex: 1940 Male Med Rec #: [id number] Physician: Jazmin White MD Financial #: [id number] Pt. Type: O Room/Bed: / Admit/Disch: 01/19/25 08:59:53 - Institution: Case Times PACU I FT Pre-Care Text: Identifies barriers to communication and implements measures to provide psychological support Develops individualized plan of care, and ensures continuity of care Maintains patient's dignity and privacy, and maintains patient confidentiality Identifies and reports philosophical, cultural, and spiritual beliefs and values Identifies individual values and wishes concerning care Implements aseptic technique, and administers prescribed antibiotic therapy and immunizing agents as ordered Evaluates postoperative tissue perfusion Implements thermoregulation measures, and monitors body temperature Evaluates postoperative respiratory status Evaluates postoperative cardiac status Evaluates postoperative neurological status Assesses pain control, collaborated in initiating patient-controlled analgesia and implements alternative methods of pain control Verifies allergies, administers prescribed medications and solutions, evaluates response to medications Entry 1 In PACU I 01/19/25 10:13:00 Discharge from PACU 01/19/25 10:40:00 I Outcomes Met? Yes Last Modified By: Peggy Perry RN 01/19/25 11:06:39 Post-Care Text: The patient demonstrates knowledge of the expected response to the operative or invasive procedure The patient's care is consistent with the individualized perioperative plan of care The patient's rightto privacy is maintained The patient's value system, lifestyle, ethnicity, and culture are considered, respected, and incorporated into the perioperative plan of care The patient participates in decisions affecting his or her perioperative plan of care The patient is free from signs and symptoms of infection The patient has wound/tissue perfusion consistent with or improved from baseline levels established preoperatively The patient is at or returning to normothermia at the conclusion of the immediate postoperative period The patient's respiratory function is consistent with or improved from baseline levels established preoperativelyThe patient's cardiovascular status is consistent with or improved from baseline levels established preoperatively The patient's cardiovascular status is consistent with or improved from baseline levels established preoperatively The patient demonstrates and/or reports adequate pain control throughout the perioperative period The patient received appropriate medication(s), safely administered during the perioperativeperiod Acuity Level PACU I FT Entry 1 Start Time 01/19/25 10:13:00 Stop Time 01/19/25 10:40:00 Acuity Level Acuity Level I Last Modified By: Peggy Perry RN 01/19/25 11:06:51 Finalized By: Peggy Perry RN Document Signatures Signed By: Peggy Perry RN 01/19/25 11:06[facility] Preoperative Recordon [id number] OR Preoperative RecordMain OR Preoperative Record Holding Area Document Type FT Summary Primary Physician: Jazmin White MD Finalized Date/Time: 01/19/25 09:15:09 Pt. Name: SKIP CABELLO Anny Escalante/Sex: 1940 Male Med Rec #: [id number] Physician: Jazmin White MD Financial #: [id number] Pt. Type: O Room/Bed: / Admit/Disch: 01/19/25 08:59:53 - Institution: Case Times Holding FT Pre-Care Text: Verifies consent for planned procedure, identifies individual values and wishes concerning care, includes family members in perioperative teaching Secures patient's records' belongings, and valuables, maintains patient's dignity and privacy, and maintains patient confidentiality Entry 1 In Holding 01/19/25 09:03:00 Outcomes Met? Yes Last Modified By: Celia Melvin RN 01/19/25 09:14:24 Post-Care Text: The patient participates in decisions affecting his or her perioperative plan of care The patient'sright to privacy is maintained Surgery Checklist FT Entry 1 Patient Birthday, ID Band Procedure History and Physical, Identification: Check, Patient Verification: Surgical Consent, With Participation Patient NPO after Midnight: Yes Results Reviewed n/a Comments: Personal Items: Glasses, Jewelry Personal Items Glassess, necklace Comment: Limitations: Vision, hard of hearing Complaints of Pain: No Pain Comment: Denies Operative Site n/a Marking: Availability Equipment Verified: Does Patient Smoke No Patient states Yes Comment - Adult Grandson postop adult Supervision supervision available Case Cancelled in No Holding Area see comments below for reason Last Modified By: Celia Melvin RN 01/19/25 09:15:05 Finalized By: Celia Melvin RN Document Signatures Signed By: Celia Melvin RN 01/19/25 09:15[facility]Out[facility] Discharge Instructionon [id number] Surgery Discharge InstructionOutpatient Surgery Discharge Instruction [place] [id number] Patient Discharge Instructions PERSON INFORMATION Name: SKIP CABELLO Date of : 1940 Current Date: 01/19/2025 10:05:15 PHYSICIANS Admitting Physician: Jazmin White MD Discharge Diagnosis: Acute peptic ulcer SKIP CABELLO has been given the following list of follow-up instructions, prescriptions, and patient education materials: PATIENT FOLLOW-UP INFORMATION Diet: Regular Discharge Activity: Resume normal activities in 24 hours Discharge Restrictions: No driving for 24 hrs Call Your Doctor For: Persistent or heavy bleeding IF UNABLE TO CONTACT YOUR PHYSICIAN AND YOU FEEL IT IS AN EMERGENCY, GO TO THE NEAREST EMERGENCY ROOM OR CALL 911 I, SKIP CABELLO, have received the attached patient education materials/instructions and have verbalized understanding: May we do a follow up call? Yes No I was present when discharge instructions were given Patient Signature Date Clinican/Nurse Signature Date Follow up: Pharmacy Information: You may receive a survey from Aline Billingsley asking you to rate your care experience. Your feedback is important and will help us understand what we do well and how we can improve the quality of care we provide to you, your loved ones and our community. It???s an honor to serve you. Thank you for choosing [facility] HERE ARE THE MEDICATION CHANGES THAT OCCURRED DURING YOUR HOSPITAL STAY Medications to Continue with No Changes Other Medications aspirin (aspirin 81 mg Oral EC Tab) [...] MOUTH EVERY MORNING AND EVENING WITH MEALS. isosorbide mononitrate (isosorbide mononitrate 30 mg ER Tab) TAKE 1 TABLET BY MOUTH EVERY DAY. lisinopril (lisinopril 20 mg Tab) 1 Tablets By Mouth every day. Hold for systolic blood pressure 110 or less. magnesium oxide (magnesium oxide 400 mg Tab) 2 Tablets By Mouth., patient takes 840 mg by mouth daily [facility] [place]Hepatic panel, CBC) 0. Have labs on 09/05. Refills: 0., Results to Dr. White and PCP [facility] [place] (Stool Hpylori antigen) 0. Please send stool sample cup and depressor for collection and to drop off at hospital. Refills: 0., Results to Dr. White and PCP pantoprazole (Pantoprazole [address] Tab) 1 Tablets By Mouth twice a day (before meals) for 90 Days.Refills: 3. sucralfate (Carafate 1 gram Tab) 1 Tablets By Mouth 4 times a day for 14 Days. Refills: 3. PATIENT EDUCATION INFORMATION Instructions: Medication Leaflets:[facility] Reporton [id number] Pathology ReportJeremy Ville [address] [place] [address]- Surgical Pathology Report Collected Date/Time: 12/01/2024 10:05 EDT Pathologist: Phill KABA PhD, Nelson Hernandez Received Date/Time: 12/01/2024 11:03 EDT Cindy KABA, Jazmin White MD, Jazmin Hdz Surgical Pathology Report - 12/09/2024 10:10 EDT - Auth (Verified) Final Diagnosis A: ANTRAL ULCER, BIOPSY: - SUPERFICIAL ANTRAL TYPE MUCOSA WITH FOVEOLAR HYPERPLASIA. - IMMUNOHISTOCHEMISTRY FOR HELICOBACTER PYLORI IS NEGATIVE. B: STOMACH, BIOPSY: - GASTRIC MUCOSA WITH MILD CHRONIC INFLAMMATION IN LAMINA PROPRIA. - NO INTESTINAL METAPLASIA. (Electronic Signature) Nelson Pollock MD PhD 12/09/2024 10:10 Clinical Information Anemia, GERD without esophagitis Pre-Op Diagnosis: Anemia, GERD without esophagitis Procedure: EGD Post-Op Diagnosis: 1. Esophageal landmarks identified, previously seen esophagitis completely healed up 2. Mild gastritis in the antrum of the stomach, multiple small clean-based ulcers in the antrum of the stomach, Jake class III. I biopsied the ulcers. In addition random gastric biopsies were also taken to rule out H. pylori 3. Normal examined duodenum Specimen(s) Received A. Antral ulcer biopsy B. Gastric biopsy Gross Description A: Received in formalin labeled with patient name, number, and antral ulcer biopsy are two fragments of cardoso/pink tissue each measuring less than 0.1 cm. The specimen is entirely submitted in one cassette. B: Received in formalin labeled with patient name, number, and gastric biopsy is a single fragment of cardoso/pink tissue measuring 0.1 x 0.1 x 0.1 cm. Specimen is entirely submitted in one cassette. (DC) DC:MCA Microscopic Description The use of one or more reagents in the above tests is regulated as an analyte specific reagent (ASR). The test or tests are ordered following initial H&E microscopic examination. The performance characteristics were determined by the [facility]. They have not been cleared or approved by the US Food and Drug Administration. The FDA has determined that such clearance or approval is not necessary. These tests are used for clinical purposes. They should not be regarded as investigational or for research. Appropriate positive and negative controls are performed and are acceptable. This report was transcribed using voice recognition technology and might contain unintended computerized hardware technician errors. Microscopic examination performed unless gross only specified. Quality was accessed and acceptable.NormalFisher Harper Medical CenterComment on above:Performed By: #### [id number] #### Trevor [facility] [address] [place], [place] [address]Nvtfcddhq By: #### [id number] ####Trevor [facility] [address] [place], [place] [address]Seqr OR Intraoperative Recordon [id number] OR Intraoperative RecordMain OR Intraoperative Record IntraOp Document Type FT Summary Primary Physician: Jazmin White MD Finalized Date/Time: 12/02/24 09:54:32 Pt. Name: SKIP CABELLO/Sex: 1940 Male Med Rec #: [id number] Physician: Jazmin White MD Financial #: [id number] Pt. Type: O Room/Bed: / Admit/Disch: 12/01/24 08:08:10 - 12/01/24 23:59:59 Institution: Case Times FT Entry 1 Patient Times In Room 12/01/24 09:58:00 Out Room 12/01/24 10:09:00 Procedure Times Start 12/01/24 10:02:00 Stop 12/01/24 10:05:00 Anesthesia Times Start 12/01/24 09:58:00 Stop 12/01/24 10:09:00 Last Modified By: Jim TONG, Angeles Yadav 12/01/24 10:13:37 Case Attendance FT Entry 1 Entry 2 Entry 3 Case Attendee Ophelia RODRIGUEZ, Miles Fernandez RN, Bianca Mendez Role Performed Anesthesiologist Supervisor Estimator And Drafter - Primary Scrub - Primary Delivery Nurse Time In 12/01/24 09:58:00 12/01/24 09:58:00 12/01/24 09:58:00 Time Out 12/01/24 10:09:00 12/01/24 10:09:00 12/01/24 10:09:00 Procedure EGD(.) EGD(.) EGD(.) Comments Dr. Freeman is supervising. Last Modified By: Jim TONG, Angeles Fernandez RN, Angeles Rowland RN 12/01/24 10:13:38 12/01/24 10:13:38 12/01/24 10:13:38 Entry 4 Entry 5 Case Attendee Edilson Barron MD, Muhammad Talal Role Performed Staff - Other Surgeon - Primary Time In 12/01/24 09:58:00 12/01/24 09:58:00 Time Out 12/01/24 10:09:00 12/01/24 10:09:00 Procedure EGD(.) EGD(.) Comments Last Modified By: Angeles Fernandez RN, RN, Kristin N 12/01/24 10:13:38 12/01/24 10:13:38 Perioperative Protocols FT Pre-Care Text: Implements protective [...] No Time Out Miles Bell, Given Participants Angeles Fernandez RN, Miles, Kirstyn K, Sparks, Micala E, Sarmini MD, Jazmin Cobly Time Out Complete 12/01/24 09:55:00 Outcomes Met? Yes Last Modified By: Angeles Fernandez RN 12/01/24 09:55:41 Post-Care Text: The patient is free from signs and symptoms of injury caused by extraneous objects Allergy Information FT Pre-Care Text: Verifies allergies Entry 1 Allergies Reviewed? Yes Allergies Reviewed Self/Patient With Outcomes Met? Yes Last Modified By: Angeles Fernandez RN 12/01/24 09:55:48 Post-Care Text: The patient received appropriate medication(s) safely administered during the perioperative period Surgical Procedures FT Entry 1 Procedure Description Procedure EGD Modifiers . Surgeon Description EGD with gastric biopsy and antral ulcer biopsy. Primary Procedure Yes Primary Surgeon Jazmin White MD Start 12/01/24 10:02:00 Stop 12/01/24 10:05:00 Anesthesia Type General Surgical Service Gastroenterology Wound Class 2 - Clean-Contaminated Last Modified By: Angeles Fernandez RN 12/01/24 10:06:37 General Case Data FT Pre-Care Text: Classifies surgical wound, implements aseptic technique, initiates traffic control Entry 1 Case Information OR ENDO 1 FT Case Level Level 2 Wound Class 2 - Clean-Contaminated Specialty Gastroenterology ASA Class 3 Preop Diagnosis Anemia, GERD without Postop Same As Preop No esophagitis Postop Diagnosis Mild gastritis, small Outcomes Met? Yes gastric erosions, x3 small gastric ulcers clean based Last Modified By: Angeles Fernandez RN 12/01/24 10:05:25 Post-Care Text: The patient is free from signs and symptoms of infection Skin Assessment (Pre Procedure) FT Pre-Care Text: Implements protective measures to prevent skin/ tissue injury due to thermal or mechanical sources Evaluates for signs and symptoms of physical injury to skin and tissue Entry 1 Skin Integrity Intact, [place], Warm, & Skin Abnormality No Dry Outcomes Met? Yes Last Modified By: Angeles Fernandez RN 12/01/24 10:00:32 Post-Care Text: The patient is free from [...] Feet Uncrossed? Yes Left Arm Position Resting (more content not included)... [facility] HospitalDischarge Instructionson [id number] InstructionsDischarge Instructions SKIP CABELLO Anny :1940 Visit Date:12/01/2024 Inpatient Discharge Instructions Your Care Team Admitting Physician - Jazmin White MD Referring Physician - Jazmin White MD Reason for Your Visit ANEMIA, GASTROESOPHAGEAL REFLUX DISEASE WITHOUT ESOPHAGITIS Your Diagnosis Multiple gastric ulcers Tests Performed Pathology Tissue Exam -- Results Pending -- Please visit your patient portal for your results or contact your primary care physician. This Is Your Medications List [facility] [place], CBC) [facility] [place] (Stool Hpylori antigen) aspirin (aspirin 81 mg Oral EC Tab) atorvastatin (atorvastatin 40 mg Tab) carvedilol (carvedilol 6.25 mg Tab) clopidogrel (clopidogrel 75 mg Tab) isosorbide mononitrate (isosorbide mononitrate 30 mg ER Tab) lisinopril (lisinopril 20 mg Tab) magnesium oxide (magnesium oxide 400 mg Tab) pantoprazole (Pantoprazole [address] Tab) sucralfate (Carafate 1 gram Tab) Procedure History EGD - esophagogastroduodenoscopy (12/01/2024), EGD - esophagogastroduodenoscopy (09/01/2024). Discharge Vitals Temperature (Temporal Artery) 36.4 ???C Heart Rate (Monitored) 62 Respiratory Rate 16 Blood Pressure 133/69 Height 162 cm Weight 67.2 kg BMI 25.61 What to do next Instructions From Your Doctor Event Name Event Result Discharge Instructions Discharge Instructions New Follow Up Appointments after Discharge Follow Up with Cindy KABA, Jazmin Colby [facility] When: Comments: Call for followup appointment to review any pending pathology/biopsy results Call for any problems. Where: [facility] Josh [place], [address] [address] [phone] Medications What How Much When Instructions Next Dose New pantoprazole (Pantoprazole [address] Tab) 1 Tablets By Mouth Twice a day (before meals) Duration: 90 Days Refills: 3 Pickup at [facility]/pharmacy #[id number] New sucralfate (Carafate 1 gram Tab) 1 Tablets By Mouth 4 times a day Duration: 14 Days Refills: 3 Pickup at [facility]/pharmacy #[id number] Unchanged aspirin (aspirin 81 mg Oral EC Tab) 1 Tablets By Mouth Every day Please make sure that aspirin is always enteric coated. May resume on if no bleeding Unchanged atorvastatin (atorvastatin 40 mg Tab) 2 Tablets TAKE 1 TABLET BY MOUTH EVERYDAY AT BEDTIME Unchanged carvedilol (carvedilol 6.25 mg Tab) 1 Tablets 2 times a day TAKE 1 TABLET BY MOUTH EVERY MORNING AND EVENING WITH MEALS Unchanged clopidogrel (clopidogrel 75 mg Tab) 1 Tablets By Mouth Every day Unchanged isosorbide mononitrate (isosorbide mononitrate 30 mg ER Tab) TAKE 1 TABLET BY MOUTH EVERYDAY Unchanged lisinopril (lisinopril 20 mg Tab) 1 Tablets By Mouth Every day Hold for systolic blood pressure 110 or less Unchanged magnesium oxide (magnesium oxide 400 mg Tab) 2 Tablets By Mouth Unchanged Misc Prescription (Hepatic panel, CBC) 0 Have labs on Unchanged Misc Prescription (Stool Hpylori antigen) 0 Please send stool sample cup and depressor for collection and to drop off at hospital Pharmacy Information [facility]/pharmacy #[id number]: [address], [place] [phone] Allergies No Known Allergies Problems Ongoing - [...] Dyskinesia Dyspnea Ex-cigarette smoker Fibrosis of lung Full thickness rotator cuff tear Gastroesophageal reflux disease without esophagitis Gastrointestinal hemorrhage Generalized anxiety disorder Generalized enlarged lymph nodes Hyperlipidemia Hypothyroidism Hypoxia Indigestion Inflammatory dermatosis Left bundle branch block Lesion of liver Mixed bipolar affective disorder, mild Mixed hyperlipidemia Obstructive sleep apnea syndrome Orthostatic hypotension Historical - Any problem that you are no longer receiving treatment for. Atypical chest pain Coronary atherosclerosis Fatigue Education Materials Endoscopy Care After Procedure Please read the instructions outlined below and refer to this sheet in the next few weeks. These discharge instructions p (more content not included)...Normal [facility] HospitalComment on above:Result Comment: Electronically Signed By: Maddie Whittaker RN\.tom\Date and Time Signed: 12/01/24 10:42 EDTDischarge InstructionsDischarge Instructions SKIP CABELLO :1940 Visit Date:12/01/2024 Inpatient Discharge Instructions Your Care Team Admitting Physician - Sarmini Jazmin KABA Referring Physician - Jazmin White MD Reason for Your Visit ANEMIA, GASTROESOPHAGEAL REFLUX DISEASE WITHOUT ESOPHAGITIS Your Diagnosis Multiple gastric ulcers Tests Performed Pathology Tissue Exam -- Results Pending -- Please visit your [...] DR Tab) sucralfate (Carafate 1 gram Tab) Procedure History EGD - esophagogastroduodenoscopy (09/01/2024). What to do next Instructions From Your Doctor No qualifying data available. New Follow Up Appointments after Discharge Follow Up with Cindy KABA, Jazmin Colby, [facility] When: Comments: Call for followup appointment to review any pending pathology/biopsy results Call for any problems. Where: [address] [place] [address], [facility] [address] [phone] Medications What How Much When Instructions Next Dose New pantoprazole (Pantoprazole [address] Tab) 1 Tablets By Mouth Twice a day (before meals) Duration: 90 Days Refills: 3 Pickup at [facility]/pharmacy #[id number] New sucralfate (Carafate 1 gram Tab) 1 Tablets By Mouth 4 times a day Duration: 14 Days Refills: 3 Pickup at [facility]/pharmacy #[id number] Unchanged aspirin (aspirin 81 mg Oral EC Tab) 1 Tablets By Mouth Every day Please make sure that aspirin is always enteric coated. May resume on if no bleeding Unchanged atorvastatin (atorvastatin 40 mg Tab) 2 Tablets TAKE 1 TABLET BY MOUTH EVERYDAY AT BEDTIME Unchanged carvedilol (carvedilol 6.25 mg Tab) 1 Tablets 2 times a day TAKE 1 TABLET BY MOUTH EVERY MORNING AND EVENING WITH MEALS Unchanged clopidogrel (clopidogrel 75 mg Tab) 1 Tablets By Mouth Every day Unchanged isosorbide mononitrate (isosorbide mononitrate 30 mg ER Tab) TAKE 1 TABLET BY MOUTH EVERYDAY Unchanged lisinopril (lisinopril 20 mg Tab) 1 Tablets By Mouth Every day Hold for systolic blood pressure 110 or less Unchanged magnesium oxide (magnesium oxide 400 mg Tab) 2 Tablets By Mouth Unchanged Misc Prescription (Hepatic panel, CBC) 0 Have labs on Unchanged Misc Prescription (Stool Hpylori antigen) 0 Please send stool sample cup and depressor for collection and to drop off at hospital Pharmacy Information [facility]/pharmacy #[id number]: [address], [place] [phone] Allergies No Known Allergies Problems Ongoing - [...] Dyskinesia Dyspnea Ex-cigarette smoker Fibrosis of lung Full thickness rotator cuff tear Gastroesophageal reflux disease without esophagitis Gastrointestinal hemorrhage Generalized anxiety disorder Generalized enlarged lymph nodes Hyperlipidemia Hypothyroidism Hypoxia Indigestion Inflammatory dermatosis Left bundle branch block Lesion of liver Mixed bipolar affective disorder, mild Mixed hyperlipidemia Obstructive sleep apnea syndrome Orthostatic hypotension Historical - Any problem that you are no longer receiving treatment for. Atypical chest pain Coronary atherosclerosis Fatigue Education Materials Endoscopy Care After Procedure Please read the instructions outlined below and refer to this sheet in the next few weeks. These discharge instructions provide you with general information on caring for yourself [facility] Your doctor may also give you specific instructions. While your treatment has been planned according to the most current medical practices available, unavoidable complications occasionally occur. If y (more content not included)...[facility] Comment on above:Result Comment: Electronically Signed By: Panfilo TONG, Maddie\.br\Date and Time Signed: 12/01/24 10:20 EDTMain OR PACU I Recordon [id number] OR PACU I RecordMain OR PACU I Record PACU Phase I Document Type FT Summary Primary Physician: Jazmin White MD Finalized Date/Time: 12/01/24 10:38:44 Pt. Name: SKIP CABELLO Anny Escalante/Sex: 1940 Male Med Rec #: [id number] Physician: Jazmin White MD Financial #: [id number] Pt. Type: O Room/Bed: / Admit/Disch: 12/01/24 08:08:10 - Institution: Case Times PACU I FT Pre-Care Text: Identifies barriers to communication and implements measures to provide psychological support Develops individualized plan of care, and ensures continuity of care Maintains patient's dignity and privacy, and maintains patient confidentiality Identifies and reports philosophical, cultural, and spiritual beliefs and values Identifies individual values and wishes concerning care Implements aseptic technique, and administers prescribed antibiotic therapy and immunizing agents as ordered Evaluates postoperative tissue perfusion Implements thermoregulation measures, and monitors body temperature Evaluates postoperative respiratory status Evaluates postoperative cardiac status Evaluates postoperative neurological status Assesses pain control, collaborated in initiating patient-controlled analgesia and implements alternative methods of pain control Verifies allergies, administers prescribed medications and solutions, evaluates response to medications Entry 1 In PACU I 12/01/24 10:10:00 Discharge from PACU 12/01/24 10:40:00 I Outcomes Met? Yes Last Modified By: Maddie Whittaker RN 12/01/24 10:38:31 Post-Care Text: The patient demonstrates knowledge of the expected response to the operative or invasive procedure The patient's care is consistent with the individualized perioperative plan of care The patient's rightto privacy is maintained The patient's value system, lifestyle, ethnicity, and culture are considered, respected, and incorporated into the perioperative plan of care The patient participates in decisions affecting his or her perioperative plan of care The patient is free from signs and symptoms of infection The patient has wound/tissue perfusion consistent with or improved from baseline levels established preoperatively The patient is at or returning to normothermia at the conclusion of the immediate postoperative period The patient's respiratory function is consistent with or improved from baseline levels established preoperativelyThe patient's cardiovascular status is consistent with or improved from baseline levels established preoperatively The patient's cardiovascular status is consistent with or improved from baseline levels established preoperatively The patient demonstrates and/or reports adequate pain control throughout the perioperative period The patient received appropriate medication(s), safely administered during the perioperativeperiod Acuity Level PACU I FT Entry 1 Start Time 12/01/24 10:10:00 Stop Time 12/01/24 10:40:00 Acuity Level Acuity Level I Last Modified By: Maddie Whittaker RN 12/01/24 10:38:40 Finalized By: Maddie Whittaker RN Document Signatures Signed By: Maddie Whittaker RN 12/01/24 10:38NoOhioHealth Shelby HospitalMain OR Preoperative Recordon [id number] OR Preoperative RecordMain OR Preoperative Record Holding Area Document Type FT Summary Primary Physician: Jazmin White MD Finalized Date/Time: 12/01/24 08:29:37 Pt. Name: SKIP CABELLO D.O.B./Sex: 1940 Male Med Rec #: [id number] Physician: Jazmin White MD Financial #: [id number] Pt. Type: O Room/Bed: / Admit/Disch: 12/01/24 08:08:10 - Institution: Case Times Holding FT Pre-Care Text: Verifies consent for planned procedure, identifies individual values and wishes concerning care, includes family members in perioperative teaching Secures patient's records' belongings, and valuables, maintains patient's dignity and privacy, and maintains patient confidentiality Entry 1 In Holding 12/01/24 08:22:00 Outcomes Met? Yes Last Modified By: Dandy Roberts RN 12/01/24 08:27:14 Post-Care Text: The patient participates in decisions affecting his or her perioperative plan of care The patient'sright to privacy is maintained Surgery Checklist FT Entry 1 Patient Birthday, ID Band Procedure History and Physical, Identification: Check, Patient Verification: Surgical Consent, With Participation Patient NPO after Midnight: Yes Results Reviewed n/a Comments: Personal Items: Cataract Lens Implant, Personal Items glasses, bilateral Glasses Comment: cataract lens implants Limitations: hard of hearing Complaints of Pain: No Pain Comment: denies pain at this time Operative Site n/a Marking: Marked By: n/a Location: n/a Availability Equipment Verified: Does Patient Smoke No Patient states Yes Comment - Adult Harper- grandson in postop adult Supervision waiting room supervision available Case Cancelled in No Holding Area see comments below for reason Last Modified By: Dandy Roberts RN 12/01/24 08:28:30 General Comments: pt currently taking plavix, pt did not hold blood thinner, last dose 11/30/24. Dr. White made aware. ok to proceed with procedure at this time Finalized By: Dandy Roberts RN Document Signatures Signed By: Dandy Roberts RN 12/01/24 08:28 Dandy Roberts RN 12/01/24 08:29 Unfinalized History Date/Time Username Reason for Unfinalizing Freetext Reason for Unfinalizing 12/01/24 08:28 [id number] Modifying Existing DataNoOhioHealth Shelby Hospital36 on [id number] lab results from 10/05/2024: MD Bev Hayes MA Renal function is stable. Continue same and follow-up in 6 months with echo. Patient informed.NormalCleveland Clinic Marymount HospitalALL BASIC METABOLIC PANELon 20-02-0063Sunqj gap [Moles/Vol]14.5 mmol/LNOMS HealthcareCalcium [Mass/Vol]9 mg/dL8.5 - 10.1 mg/dLNOMS HealthcareChloride [Moles/Vol]104 mmol/L98 - 107 mmol/LNOMS HealthcareCO2 [Moles/Vol]25.7 mmol/L21.0 - 32.0 mmol/LNOMS HealthcareCreatinine [Mass/Vol]1.19 mg/dL0.70 - 1.30 mg/dLNONC Healthcare GFR/1.73 sq M.predicted CKD-EPI (S/P/Bld) [Vol rate/Area]>60>=60 mL/min/1.73m 2 NOMS HealthcareGlucose [Mass/Vol]113 mg/nUIbsh61 - 106 mg/dLNONC Healthcare Interpretation and review of laboratory resultsAbnormalNONC HealthcarePotassium [Moles/Vol]4.2 mmol/L3.5 - 5.1 mmol/LNOMS HealthcareSodium [Moles/Vol]140 mmol/L 136 - 145 mmol/LNOMS HealthcareTBH EGFR-NON AF NUPGBHTW85Fao>=60 mL/min/1.73m 2 NOMS HealthcareUrea nitrogen [Mass/Vol]30 mg/dLHigh7.0 - 18.0 mg/dLNOMS HealthcareUrea nitrogen/Creatinine [Mass ratio]25.2 mg/mgNOMS Healthcare CLINISYNCNOMS HealthcareGastroenterology Office/Clinic Noteon 10-05-2024 Gastroenterology Office/Clinic NoteGastroenterology Office/Clinic Note Chief Complaint follow up to [...] 85.6 fL (09/01/24) Chloride: 111 mmol/L (09/01/24) Dimmit Absolute: 0.6 E9/L (09/01/24) CO2: 22 mmol/L (09/01/24) Dimmit Auto: 8.6 % (09/01/24) Creatinine: 0.8 mg/dL [...] LA grade B esophagitis. Significant inflammation through thestomach with mild patchy erythema. Multiple clean-based superficial ulcers, Jake class III in the duodenal bulb and duodenal sweep. Large diverticulum in the duodenum at the ampulla origin - Recheck labs - Nexium daily prescribed - Schedule EGD in November to evaluate. Discussed risks such as bleeding, injury and perforation as well as benefits (more content not included)...[facility] HospitalComment on above:Result Comment: Electronically Signed By: Sue Cage MA\.br\Date and Time Signed: 09/30/24 09:58 EDT\.br\Electronically Co-Signed By: Cindy KABA, Jazmin Colby\.br\Date and Time Co-Signed: 10/05/24 14:07 EDTAmbulatory Visit Summaryon 09-30-2024 Ambulatory Visit SummaryAmbulatory Visit Summary RADHA CABELLO :1940 Visit Date:09/30/2024 [...] Order for future visit, Lab Collect, Anemia, NotRequired, Print Label By Order Location Medications What How Much When Instructions New esomeprazole (Nexium 40 mg Cap-EC) 40 Milligram By Mouth Every day Duration: 90 Days Refills: 3Pharmacy may substitue PPI covered by insurance company Pickup at [facility]/pharmacy #[id number] Unchanged aspirin (aspirin 81 mg Oral EC Tab) 1 Tablets By Mouth Every day Please make sure that aspirin is always enteric coated. May resume on if no bleeding Contact prescribing physician ifquestions or concerns Unchanged atorvastatin (atorvastatin 40 mg [...] ER Tab) TAKE 1 TABLET BY MOUTH EVERYDAY Contact prescribing physician if questions or concerns [...] physician if questions or concerns Pharmacy Information [facility]/pharmacy #[id number]: [address], [place] [id number] [phone] What How Much When Comments Stop Taking [...] smoker Fibrosis of lung (more content not included)...[facility] ALL CBC WITH AUTO DIFFon 56-29-0513TQARAUUDT ABSOLUTE MDVQ1UKQM Healthcare Basophils/100 WBC (Bld)0.4 %0.2 - 2.0 %NOMS HealthcareEosinophils/100 WBC (Bld) 2.6 %0.9 - 7.0 %[facility] ServicesErythrocyte distribution width (RBC) [Ratio]14.6 %11.0 - 15.0 %NOM HealthcareHematocrit (Bld) [Volume fraction]27.2 %Low42.0 - 54.0 %[facility] HealthcareHemoglobin (Bld) [Mass/Vol]8.8 g/dLLow14.0 - 18.0 g/dLHeartland Behavioral Health ServicesIMMATURE GRANULOCYTES ABS AUTO0.04HighNONC HealthcareImmature granulocytes/100 WBC (Bld)0.4 %0.0 - 0.5 %[facility] HealthcareInterpretation and review of laboratory resultsAbnormalNONC HealthcareLYMPHOCYTES ABSOLUTE AUTO1.6 NOMS HealthcareLymphocytes/100 WBC (Bld)17.3 %Low20.5 - 60.0 %[facility] HealthcareH (RBC) [Entitic mass]28.1 pg25.9 - 34.0 pgNOCoxHealthHC (RBC) [Mass/Vol] 32.4 g/dL29.9 - 35.2 g/dLMissouri Southern HealthcareV (RBC) [Entitic vol]86.9 fL80.0 - 94.0 fLNOPutnam County Memorial HospitalMONOCYTES ABSOLUTE AMFU9ApbqOHAH HealthcareMonocytes/100 WBC (Bld)10.4 %1.7 - 12.0 %NOMS HealthcareNEUTROPHILS ABSOLUTE AUTO6.4NOMS HealthcareNeutrophils/100 WBC (Bld)68.9 %43.0 - 75.0 %NOMS HealthcarePlatelet mean volume (Bld) [Entitic vol]10 fL9.5 - 13.5 fLNOMS HealthcareTBH EO #0.2NOMS HealthcareTBH [id number] HealthcareTBH RBC3.13LowNOMS HealthcareTBH WBC9.3NOMS HealthcareCLINISYNCNOMS HealthcareOffice Visiton 48-94-0110Omtulr-up visit [id number] Radha Cabello 1940 M Date Provider Department Center 09/05/2024 EARL LAWSON Family History Problem Relation Age of Onset Coronary artery disease Father Hypertension Father Family Status - Relation Status Age at Mother Father Level of Service:74860 ND OFFICE/OUTPATIENT ESTABLISHED MOD MDM 30 [facility] HospitalPath. Reviewon 44-18-2989Mjhd ReviewAnemia with polychromasia. Monocytosis. Clinical correlation is indicated for etiology. Invalid Interpretation CodeMemorial Health System Selby General HospitalComment on above:Performed By: #### [id number] ####[facility] [address] [place], [place] [address]H. pylori Stool Agon 09-04-2024H. pylori Ag IA Ql (Stl) NegativeInvalid Interpretation CodeNegativeMemorial Health System Selby General HospitalComment on above:Result Comment: Performed at: [facility] [address] [id number] PhD Rosmery Penaformed By: #### [id number] #### [facility] [address], [place] [phone] call from Trevor Mckay is requesting to speak with the Who is in office in regards to patient Radha Cabello. Per Nely [facility] Nely would like to hold his Plavix for 72 hour and discharge the patient to home today. Nely would like a Cardiology's blessing to stop Plavix. Patient seen Alglorenzo back on 04/12. Please advise. NormalCleveland Clinic Marymount HospitalCHEMISTRYOrdered By: SYSTEM SYSTEM on 58-14-5209Zjmxkjqjq (Vitamin B12) [Mass/Vol]524 pg/xOUykzlm03 - 1500 pg/mL Remisol ChemFerritin [Mass/Vol]11 ng/mLLow24 - 336 ng/mLRemisol ChemFolate [Mass/Vol]18.5 ng/mLNormal>=6.7ng/mLRemisol ChemIron [Mass/Vol]21 ug/dLLow35 - 153 mcg/dLRemisol ChemIron binding capacity [Mass/Vol]395 ug/vPWwtdim455 - 400 mcg/dLRemisol NdoxENO397 [iU]/gCvyxrz58 - 218 Int._Unit/LRemisol ChemTransferrin [Mass/Vol]282 mg/nZYndvjj168 - 370 mg/dLRemisol ChemTSH Qn2.11 m[IU]/LNormal 0.34 - 5.60 mcIU/mLRemisol ChemAlbumin [Mass/Vol]3.6 g/dLNormal3.3 - 5.0 gm/dL Remisol ChemAlbumin/Globulin [Mass ratio]1.9 {ratio}Normal1.1 - 2.2Remisol Chem ALP [Catalytic activity/Vol]46 [iU]/oPuqhpc49 - 98 Int._Unit/LRemisol ChemALT No additional P-5'-P [Catalytic activity/Vol]10 [iU]/dNormal6 - 46 Int._Unit/L Remisol ChemAST [Catalytic activity/Vol]14 [iU]/dNormal5 - 43 Int._Unit/LRemisol ChemBilirubin [Mass/Vol]1.6 mg/dLHigh0.0 - 1.1 mg/dLRemisol Chem Bilirubin.direct [Mass/Vol]0.3 mg/dLNormal0.0 - 0.4 mg/dLRemisol Chem Bilirubin.indirect [Mass or moles/Vol]1.3 mg/dLHigh0.1 - 0.9 mg/dLRemisol Chem Globulin (S) [Mass/Vol]1.9 g/dLNormal1.4 - 4.0 gm/dLRemisol ChemProtein [Mass/Vol]5.5 g/dLLow6.0 - 7.8 gm/dLRemisol ChemDischarge Note-Nursingon 54-79-3763Cfjiyvswx Note-NursingDischarge Note-Nursing RADHA CABELLO :1940 Visit Date:08/31/2024 Inpatient [...] EDT With: Cindy KABA, Jazmin Colby Where: [facility] [address] [place] [address]- New Follow Up Appointments after Discharge Follow Up with Jazmin White When: 09/30/2024 09:30 AM EDT Where: [address], [address] [place] [address]- [phone] Business (1) Follow Up with EARL PATRICK When: 09/05/2024 09:45 AM EDT Comments: Appointment has already been scheduled - go to [facility] Follow Up with SCOTT TAI When: Within 1 to 2 days Comments: Call for followup appointment Where: [address] [place] [phone] Business (1) Medications What How Much When Instructions Next Dose New Misc Prescription (Hepatic panel, CBC) 0 Have labs on Printed Prescription New Misc Prescription (Stool Hpylori antigen) 0 Please send stool sample cup and depressor for collection and to drop off at hospital Printed Prescription New pantoprazole (Pantoprazole [address] Tab) 1 Tablets By Mouth 2 times a day Pickup at [facility]/pharmacy #[id number] Tonight at 9:00 PM New sucralfate (Carafate 1 gram Tab) 1 Tablets By Mouth 4 times a day Duration: 30 Days Monitor forconstipation Pickup at [facility]/pharmacy #[id number] Today at lunch Changed aspirin (aspirin 81 [...] ER Tab) TAKE 1 TABLET BY MOUTH EVERYDAY 09/03/2024 Unchanged magnesium oxide (magnesium oxide 400 mg Tab) 2 Tablets By Mouth 09/03/2024 Pharmacy Information [facility]/pharmacy #[id number]: [address], [place] [phone] Test Results CBC BMP WBC: 7.3 E9/L (09/01/24 05:23:00) Glucose Lvl: 76 mg/dL (09/01/24 05:23:00) RBC: 2.3 E12/L Low (09/01/24 05:23:00) BUN: 21 mg/dL (09/01/24 05:23:00) HGB: 9.7 gm/dL Low (09/02/24 09:38:00) Creatinine: 0.8 mg/dL (09/01/24 05:23:00) Hct: 28.8 % Low (09/02/24 09:38:00) BUN/Creat Ratio: 26 High (09/01/24 05:23:00) MCV: 85.6 fL (08/18 (more content not included)...NormalMemorial Health System Selby General HospitalFerritinon 88-11-2654Otofrhjb [Mass/Vol]11 ng/zIFga73-457GipaleMemorial Health System Selby General HospitalComment on above:Performed By: #### [id number] #### [facility] [address], [place] [address]Xbwwnmor 30-66-9782Zytwue [Mass/Vol]18.5 ng/mLNormal>=6.7Fisher [facility]star Harbor HospitalComment on above:Performed By: #### [id number] #### [facility] [address], [place] [address]FVXRUBVIUMWsabutg By: SYSTEM SYSTEM on 07-25-9312Czitsxqguj (Bld) [Volume fraction]28.8 %Low37.7 - 49.0 %Remisol HemeHemoglobin (Bld) [Mass/Vol]9.7 g/dLLow13.5 - 17.5 gm/dLRemisol HemeReticulocytes/100 RBC (Bld)5.8 %High0.5 - 2.2 %Remisol HemeComment on above:Result Comment: Reticulocyte count has been corrected for anemiaHematocrit (Bld) [Volume fraction]24.6 %Low37.7 - 49.0 %Remisol HemeHemoglobin (Bld) [Mass/Vol]8.7 g/dLLow13.5 - 17.5 gm/dLRemisol HemeHct & Hgbon 04-95-7355Rtlitqlyzo (Bld) [Volume fraction]28.8 %Low37.7-49.0 [facility] HospitalComment on above:Performed By: #### [id number] #### [facility] [address], [place] [address]Zksapsqvda (Bld) [Mass/Vol]9.7 g/dLLow13.5-17.5FAccess Hospital DaytonComment on above:Performed By: #### [id number] #### [facility] [address], [place] [address]Argfgoindd (Bld) [Volume fraction]24.6 %Low37.7-49.0[facility] HospitalComment on above:Performed By: #### [id number] #### [facility] [address], [place] [address]Hjhyngxchv (Bld) [Mass/Vol]8.7 g/dLLow13.5-17.5FAccess Hospital DaytonComment on above:Performed By: #### [id number] #### [facility] [address], [place] [address]Cln Func Panelon 67-49-9736Hsfbcbj [Mass/Vol]3.6 g/dLNormal 3.3-5.0[facility] HospitalComment on above:Performed By: #### [id number] #### [facility] [address], [place] [address]Ixqeprs/Globulin (S) [Mass conc ratio]1.4Kynzzc7.1-2.2FAccess Hospital DaytonComment on above:Performed By: #### [id number] #### [facility] [address], [place] [address]AAR [Catalytic activity/Vol]46 Int._Unit/VXveacu01-63OdzhkaMemorial Health System Selby General HospitalComment on above:Performed By: #### [id number] #### [facility] [address], [place] [address]ZBI No additional P-5'-P [Catalytic activity/Vol]10 Int._Unit/L Normal6-46Mem[facility] HospitalComment on above:Performed By: #### [id number] #### [facility] [address], [place] [address]XTI [Catalytic activity/Vol]14 Int._Unit/LNormal5-43[facility] HospitalComment on above:Performed By: #### [id number] #### [facility] [address], [place] [address]Irscvxljn [Mass/Vol]1.6 mg/dLHigh0.0-1.1FAccess Hospital DaytonComment on above:Performed By: #### [id number] #### [facility] [address], [place] [address]Dkiwwjkow.direct [Mass/Vol]0.3 mg/dLNormal0.0-0.4FAccess Hospital DaytonComment on above:Performed By: #### [id number] #### [facility] [address], [place] [address]Mizccrqno.indirect [Mass or moles/Vol]1.3 mg/dLHigh0.1-0.9 [facility] HospitalComment on above:Performed By: #### [id number] #### [facility] [address], [place] [address]Vnmpawad (S) [Mass/Vol]1.9 g/dLNormal1.4-4.0[facility] HospitalComment on above:Performed By: #### [id number] #### [facility] [address], [place] [address]Pwnjxed [Mass/Vol]5.5 g/dLLow6.0-7.8[facility] Comment on above:Performed By: #### [id number] #### [facility] [address], [place] [address]Emkeylgbg Clinical Summaryon 13-69-9737Glulcatew Clinical SummaryInpatient Clinical Summary [address] [address] Clinical Summary Person Information: Name: RADHA CABELLO Age: 83 Years : 1940 Sex: Male PCP: SCOTT TAI MD Marital Status: Phone: [phone] Race: White Ethnicity: Non- or Language: Kyrgyz Visit Id: Visit Reason: upper gi bleed Speciality: Acuity: Enc Type: Inpatient Med Service: Medical Arrival: 08/31/2024 17:40:13 Discharge: Dispo Type: Address: [address] [place] [phone] Provider Notes: Diagnosis: 3:Hypocalcemia; 4:CAD (coronary artery disease); 5:HTN (hypertension), benign; 6:Dyslipidemia; 7:Ondeep vein thrombosis (DVT) prophylaxis Problems No Problems [...] Follow up: With: Address: When: Jazmin White [address] [place] [address], [address], [address] [phone] Business (1) 09/30/2024 9:30 AM With: Address: When: SCOTT TAI [address] [place] [address] Business (1) Within 1 to 2 days Comments: Call for followup appointment With: Address: When: EARL PATRICK 09/05/2024 9:45 AM Comments: Appointment has already been scheduled - go to [facility] Type Location Start [facility] Follow Up [facility] 09/30/2024 9:30 AM 09/30/2024 9:45 AM Confirmed Patient Education Information: Esophagitis; Gastritis, Adult; Hiatal Hernia pantoprazole, sucralfateNormalFisher Medstar Harbor HospitalInpatient Patient Summaryon 54-58-6802Eswfocyai Patient SummaryInpatient Patient Summary [address] [address] Patient Discharge Instructions PERSON INFORMATION Name: RADHA CABELLO Date of : 1940 Current Date: 09/02/2024 09:47:18 PHYSICIANS Admitting Physician: Nicole Ojeda MD Primary Care Physician: SCOTT TAI MD PCP Comment: Discharge Diagnosis: 3:Hypocalcemia; 4:CAD (coronary artery disease); 5:HTN (hypertension), benign;6:Dyslipidemia; 7:On deep vein thrombosis (DVT) prophylaxis Condition at Discharge: Stable RADAH CABELLO has been given the following list [...] Follow up: With: Address: When: Jazmin White [address] [place] [address], [address], [address] [phone] Business (1) 09/30/2024 9:30 AM With: Address: When: SCOTT TAI [address] [place] [address] Business (1) Within 1 to 2 days Comments: Call for followup appointment With: Address: When: EARL PATRICK 09/05/2024 9:45 AM Comments: Appointment has already been scheduled - go to [facility] In the event that this physician does not participate in your insurance network, please consult with your insurance company to find a nearby participating provider. Type Location Start [facility] Follow Up [facility] 09/30/2024 9:30 AM 09/30/2024 9:45 AM Confirmed Comment: DESTINEY Burrows GEROLD E, have received the attached patient education materials/instructions and have verbalized understanding: Patient Signature Date Clinican/Nurse Signature Date HERE ARE THE MEDICATION CHANGES THAT OCCURRED DURING YOUR HOSPITAL STAY New Medications [id number], [address], [place] [phone], [phone] pantoprazole (Pantoprazole [address] Tab) 1 Tablets By Mouth 2 times a day. Refills: 0. Last Dose: Next Dose: sucralfate (Carafate 1 gram Tab) 1 Tablets By Mouth 4 times a day for 30 Days. Monitor for constipation. Refills: 0. Last Dose: Next Dose: Printed Prescriptions Misc Prescription (Hepatic panel, CBC) 0. Have labs on 09/05. Refills: 0., Results to Dr. White and PCP Last Dose: Next Dose: Misc Prescription (Stool Hpylori antigen) 0. Please send stool sample cup and depressor for collection and to drop off at hospital. Refills: 0., Results to Dr. White and PCP Last Dose: Next Dose: Medications to Continue Taking That Have Changed Printed Prescriptions START: aspirin (aspirin 81 mg Oral EC Tab) 1 Tablets By Mouth every day. Please make sure that aspirin is always enteric coated. May resume on 09/03 if no bleeding. Refills: 0. Last Dose: Next Dose: STOP: aspirin 81 Milligram By Mouth every day. Other Medications START: clopidogrel (clopidogrel 75 mg Tab) 1 Tablets By Mouth every day. May resume on 09/05 have labs drawn in a.m. and call PCP for hemoglobin results and to confirm resuming plavix.. Last Dose: Next Dose: STOP: clopidogrel (clopidogrel 75 mg Tab) 1 Tablets. TAKE 1 TABLET BY MOUTH EVERY DAY. START: lisinopril (lisinopril 20 mg Tab) 1 Tablets By Mouth every day. Hold for systolic blood pressure 110 or less. Last Dose: Next Dose: STOP: lisinopril (lisinopril 20 mg Tab) 1 Tablets By Mouth every day. TAKE 1 TABLET BY MOUTH EVERY DAY. Medications to Continue with No Changes Other Medications atorvastatin (atorvastatin 40 mg Tab) 2 Tablets. TAKE 1 TABLET BY MOUTH EVERYDAY AT BEDTIME. Last Dose: Next Dose: carvedilol (carvedilol 6.25 mg Tab) 1 Tablets 2 times a day. TAKE 1 TABLET BY MOUTH EVERY MORNING AND EVENING WIT (more content not included)...[facility] General HospitalInterdisciplinary Note - Case Manageron 09-02-2024 Interdisciplinary Note - Case ManagerInterdisciplinary Note - Explosive Ordnance Disposal Technician CRM to room 305 Patient is awake, alert and oriented. Patient is from home. Patient Grand son is present and is hisride at CT. Patient DME, insurance and PCP verified by previous CRM. He sees Dr Tai. Patient is an inpatient, IMM was done on 09/01. Patient came in with upper GIB. Patient is assigned to Nely RUBBER PRESS TENDER, see notes. Patient on 09/01 had EGD. Patient Hgb is more stable today. He did get one unit of PRBC. Per Patient he is a DC today. Patient declines any safety concerns to return home. Patient declined need for DME, HH or Paramed. Patient was provided CRM contact, white board updated. CRM following CRM will get updates at 10 AM from [facility] HospitalComment on above:Result Comment: Electronically Signed By: Deepa Smith\.br\Date and Time Signed: 09/02/24 11:01 EDTInterdisciplinary Note - Case ManagerInterdisciplinary Note - Explosive Ordnance Disposal Technician CRM to room 305 Patient is awake, alert and oriented. Patient is from home. Patient Grand son is present and is hisride at CT. Patient DME, insurance and PCP verified by previous CRM. He sees Dr Tai. Patient is an inpatient, IMM was done on 09/01. Patient came in with upper GIB. Patient is assigned to Nely RUBBER PRESS TENDER, see notes. Patient on 09/01 had EGD. Patient Hgb is more stable today. He did get one unit of PRBC. Per Patient he is a DC today. Patient declines any safety concerns to return home. Patient declined need for DME, HH or Paramed. Patient was provided CRM contact, white board updated. CRM following CRM will get updates at 10 AM from [facility] Comment on above:Result Comment: Electronically Signed By: Deepa Smith\.br\Date and Time Signed: 09/02/24 09:06 EDTIronon 54-90-4381Rqsp [Mass/Vol]21 microgram/eTHfu71-683DhbirvMemorial Health System Selby General HospitalComment on above:Performed By: #### [id number] #### [facility] [address] [place], [place] [address]BDJmm [id number] Int._Unit/IPiiqzn65-597Zspucu [facility] Harbor HospitalComment on above:Performed By: #### [id number] #### [facility] [address], [place] [address]Ujuh [place] Intraoperative Recordon 04-21-6306Epqn [place] Intraoperative RecordMain [place] Intraoperative Record IntraOp Document Type FT Summary Primary Physician: Cindy KABA, Jazmin Colby Finalized Date/Time: 09/02/24 10:49:23 Pt. Name: DESTINEYRADHA/Sex: 1940 Male Med Rec #: [id number] Physician: Nicole Ojeda MD Financial #: [id number] Pt. Type: I Room/Bed: [place] [address] Admit/Disch: 08/31/24 17:40:13 - Institution: Case Times FT Entry 1 Patient Times In Room 09/01/24 11:48:00 Out Room 09/01/24 11:57:00 Procedure Times Start 09/01/24 11:52:00 Stop 09/01/24 11:55:00 Anesthesia Times Start 09/01/24 11:48:00 Stop 09/01/24 11:57:00 Last Modified By: Jim TONG, Angeles Yadav 09/01/24 11:58:11 Case Attendance FT Entry 1 Entry 2 Entry 3 Case Attendee Miles Bell MD, Jazmin Fernandez RN, Angeles Colby Role Performed Anesthesiologist Surgeon - Primary Supervisor Estimator And Drafter - Primary Delivery Nurse Time In 09/01/24 11:48:00 09/01/24 11:48:00 09/01/24 11:48:00 Time Out 09/01/24 11:58:00 09/01/24 11:58:00 09/01/24 11:58:00 Procedure EGD(.) EGD(.) EGD(.) Comments Dr. Gentile is supervising Last Modified By: Jim TONG, AngelesAngeles Miller RN, RN, Kristin N 09/01/24 11:58:06 09/01/24 11:58:06 09/01/24 11:58:06 Entry [...] and tissue Entry 1 Skin Integrity Intact, [place], Warm, & Skin Abnormality No Dry Outcomes [...] Safety Strap, Pillow Und (more content not included)...NormalMemorial Health System Selby General HospitalRetic Counton 69-07-6265Yusmbqepqaazj/100 RBC (Bld)5.8 %High0.5-2.2[facility] Harbor HospitalComment on above:Result Comment: Reticulocyte count has been corrected for anemiaPerformed By: #### [id number] #### [facility] [address], [place] [address]DLEP Calculatedon 49-84-5824Nske binding capacity [Mass/Vol]395 microgram/xTEdiosy757-282YwwrboMemorial Health System Selby General HospitalComment on above:Performed By: #### [id number] #### [facility] [address] [facility] [place] [address]Cjtfdgjdmjq [Mass/Vol]282 mg/pDGhhawp429-828QnlzwvMemorial Health System Selby General HospitalComment on above:Performed By: #### [id number] #### [facility] [address] [place], [place] [address]diDayton Osteopathic Hospitalanny [place], [place] [address]WCA With T4fr Reflexon 00-99-1264DTQ Qn2.11 m[IU]/LNormal 0.34-5.60[facility] HospitalComment on above:Performed By: #### [id number] #### [facility] [address] [place], [place] [address]Fxr B12on 53-39-9783Yvaykpnlm (Vitamin B12) [Mass/Vol]524 pg/mL Akkamg09-2489PmqhmhMemorial Health System Selby General HospitalComment on above:Performed By: #### [id number] #### [facility] [address] [place] [address]JVP/Rhon 12-67-2531TJT/RhPositiveInvalid Interpretation Code [facility] HospitalComment on above:Performed By: #### [id number] #### [facility] [address], [place] [address]ZNU/Rh History Checkon 52-12-3496CJF/Rh History CheckType verified by second sNormalMemorial Health System Selby General HospitalComment on above:Performed By: #### [id number] #### [facility] [address], [place] [address]FAT/Rh Retypeon 50-16-1282OAF/Rh Retype InterpPositiveInvalid Interpretation CodeMemorial Health System Selby General HospitalComment on above:Performed By: #### [id number] #### [facility] [address], [place] [address]EXZDql 18-63-6022JJIM Gel InterpNegativeNormalMemorial Health System Selby General HospitalComment on above:Performed By: #### [id number] #### [facility] [address], [place] [address]Ofqbocvad 84-10-9254Unmslge [Mass/Vol]3.4 g/dLNormal3.3-5.0 [facility] HospitalComment on above:Performed By: #### [id number] #### [facility] [address], [place] [address]ZIZDC BANKOrdered By: Mecca Johnson on 05-37-3142OEH/Rh InterpPositiveInvalid Interpretation CodeSAINT [facility]ANC[facility] [place] BB SubsectionABSC Gel Interp Negative (09/01/24 6:32 AM)NormalSAINT FRANCIS HOSPITAL – [place] BB SubsectionABO/Rh Retype InterpPositiveInvalid Interpretation CodeSAINT FRANCIS [facility] [place] BB SubsectionBMPon 07-28-0023Hgrwi gap [Moles/Vol]9 mmol/LNormal6-16[facility] HospitalComment on above:Performed By: #### [id number] #### [facility] [address], [place] [address]Vaqphxa [Mass/Vol]7.8 mg/dLLow8.9-11.1FAccess Hospital DaytonComment on above:Performed By: #### [id number] #### [facility] [address], [place] [address]Scolrioe [Moles/Vol]111 mmol/WTxbvay113-503DkmpwvMemorial Health System Selby General HospitalComment on above:Performed By: #### [id number] #### [facility] [address], [place] [address]DB3 [Moles/Vol]22 mmol/QOhjxme89-36ShggusMemorial Health System [facility] Hospital Comment on above:Performed By: #### [id number] #### [facility] [address], [place] [address]Ronmlhbgzw [Mass/Vol]0.8 mg/dLNormal0.5-1.3FAccess Hospital DaytonComment on above:Performed By: #### [id number] #### [facility] [address], [place] [address]Vlefxcv [Mass/Vol]76 mg/aIIlnhun67-984CcavigMemorial Health System Selby General HospitalComment on above:Performed By: #### [id number] #### [facility] [address], [place] [address]Zgdwicyog [Moles/Vol]4.0 mmol/LNormal3.5-5.3FAccess Hospital DaytonComment on above:Performed By: #### [id number] #### [facility] [address], [place] [address]Vjsjoj [Moles/Vol]138 mmol/PJqcdlf478-086XvuxbdMemorial Health System Selby General HospitalComment on above:Performed By: #### [id number] #### [facility] [address], [place] [address]Qesn nitrogen [Mass/Vol]21 mg/dLNormal5-21[facility] HospitalComment on above:Performed By: #### [id number] #### [facility] [address], [place] [address]Wwvz nitrogen/Creatinine [Mass ratio]26 No PsuneVxcn22-62RszegjMemorial Health System Selby General HospitalComment on above:Performed By: #### [id number] #### [facility] [address], [place] [address]Dqutp Bank ID#on [id number]#[id number] Interpretation City HospitalComment on above:Performed By: #### [id number] #### [facility] [address], [place] [address]COV w/ Auto Diffon 20-54-4179Vhgfswnxgahp Ql (Bld)PRESENT Invalid Interpretation City HospitalComment on above:Performed By: #### [id number] #### [facility] [address], [place] [address]Lowjgnksp/100 WBC (Bld)0.6 %Normal0.0-2.0[facility] HospitalComment on above:Performed By: #### [id number] #### [facility] [address], [place] [address]Othpkdogb/Leukocytes Auto (Bld) [Pure # fraction]0.0 E9/LNormal 0.0-0.2FAccess Hospital DaytonComment on above:Performed By: #### [id number] #### [facility] [address] [place] [address]Tpugfhppbia (Bld) [#/Vol]0.1 E9/LNormal0.0-0.5FAccess Hospital DaytonComment on above:Performed By: #### [id number] #### [facility] [address] [place] [address]Eawadodwaev/100 WBC (Bld)0.8 %Normal0.0-8.0[facility] HospitalComment on above:Performed By: #### [id number] #### [facility] [address] [place] [address]Vjixngwrlhq distribution width (RBC) [Ratio]16.7 %High10.9-14.2 [facility] HospitalComment on above:Performed By: #### [id number] #### [facility] [address] [place] [address]Rtlptywsyj (Bld) [Volume fraction]19.9 %Low37.7-49.0[facility] HospitalComment on above:Performed By: #### [id number] #### [facility] [address] [place] [address]Kedldsrytl (Bld) [Mass/Vol]6.7 g/oOTwsdloiu24.5-17.5FAccess Hospital DaytonComment on above:Result Comment: Results called to CLEMENTE SAEZ by [id number] and read back on 09/01/2024 05:46:07. Critical Result Verified by Repeat AnalysisPerformed By: #### [id number] #### [facility] [address] [place] [address]Asmxwkkaqkl Auto Ql (Bld)PRESENTInvalid Interpretation Code [facility] HospitalComment on above:Performed By: #### [id number] #### [facility] [address] [place] [address]Vbzkkgqqycq (Bld) [#/Vol]1.4 E9/LNormal1.0-4.0[facility] HospitalComment on above:Performed By: #### [id number] #### [facility] [address] [place] [address]Prqyozvsueq/100 WBC (Bld)19.3 %Ocdqoo81.0-50.0[facility] HospitalComment on above:Performed By: #### [id number] #### [facility] [address] [place] [address]XKP (RBC) [Entitic mass]29.0 ceFbults66.0-34.0[facility] HospitalComment on above:Performed By: #### [id number] #### [facility] [address] [place] [address]PQER (RBC) [Mass/Vol]33.8 g/uDWxxbjy84.4-36.0[facility] HospitalComment on above:Performed By: #### [id number] #### [facility] [address] [place] [address]LPW (RBC) [Entitic vol]85.6 lHZzglek76.0-100.0[facility] HospitalComment on above:Performed By: #### [id number] #### [facility] [address] [place] [address]Woclyixlbm Ql (Bld)PRESENTInvalid Interpretation CodeMemorial Health System Selby General HospitalComment on above:Performed By: #### [id number] #### [facility] [address] [place] [address]Dkxciiipb (Bld) [#/Vol]0.6 E9/LNormal0.2-1.0[facility] HospitalComment on above:Performed By: #### [id number] #### [facility] [address] [place] [address]Ydxmyefqqel (Bld) [#/Vol]5.2 E9/LNormal2.0-7.5FAccess Hospital DaytonComment on above:Performed By: #### [id number] #### [facility] [address], [place] [address]Yonijiyamrp/100 WBC (Bld)70.7 %Ayizec61.0-75.0[facility] HospitalComment on above:Performed By: #### [id number] #### [facility] [address], [place] [address]Nxqtbhfz mean volume (Bld) [Entitic vol]8.0 fLNormal6.4-10.8 [facility] HospitalComment on above:Performed By: #### [id number] #### [facility] [address], [place] [address]Nezkivtnq (Bld) [#/Vol]189.0 E9/CZayybi590.0-500.0[facility] HospitalComment on above:Performed By: #### [id number] #### [facility] [address] [place] [address]Fwzyevujccxip LM Ql (Bld)PRESENTInvalid Interpretation Code [facility] HospitalComment on above:Performed By: #### [id number] #### [facility] [address], [place] [address]FPJ (Bld) [#/Vol]2.3 E12/LLow4.3-5.9[facility] Comment on above:Performed By: #### [id number] #### [facility] [address], [place] [address]YXB size Nom (Bld)SEE MORPHOLOGYInvalid Interpretation Code [facility] HospitalComment on above:Performed By: #### [id number] #### [facility] [address], [place] [address]POU corrected for nucl RBC Auto (Bld) [#/Vol]7.3 E9/LNormal 4.0-11.0[facility] HospitalComment on above:Performed By: #### [id number] #### [facility] [address] [place] [address]ISOJDNJMURhqkakr By: SYSTEM SYSTEM on 69-92-0560Hnismhw [Mass/Vol]3.4 g/dLNormal3.3 - 5.0 gm/dLRemisol ChemAnion gap [Moles/Vol]9 mmol/L Normal6 - 16 mEq/LRemisol ChemCalcium [Mass/Vol]7.8 mg/dLLow8.9 - 11.1 mg/dL Remisol ChemChloride [Moles/Vol]111 mmol/QMgokyc907 - 111 mmol/LRemisol ChemCO2 [Moles/Vol]22 mmol/HObmdiw01 - 31 mmol/LRemisol ChemCreatinine [Mass/Vol]0.8 mg/dLNormal0.5 - 1.3 mg/dLRemisol JelkuANL05 mL/min/1.73 d5Criyfd>=59mL/min/1.73 r2Baqzxfn ChemGlucose [Mass/Vol]76 mg/cKJujehw60 - 199 mg/dLRemisol Chem Potassium [Moles/Vol]4.0 mmol/LNormal3.5 - 5.3 mmol/LRemisol ChemSodium [Moles/Vol]138 mmol/HBynbkh805 - 145 mmol/LRemisol ChemUrea nitrogen [Mass/Vol] 21 mg/dLNormal5 - 21 mg/dLRemisol ChemUrea nitrogen/Creatinine [Mass ratio]26 mg/rbXiqn90 - 20Remisol ChemHEMATOLOGYOrdered By: SYSTEM SYSTEM on 09-01-2024 Hematocrit (Bld) [Volume fraction]24.1 %Low37.7 - 49.0 %Remisol HemeHemoglobin (Bld) [Mass/Vol]8.3 g/dLLow13.5 - 17.5 gm/dLRemisol HemeAnisocytosis Ql (Bld) PRESENT *NA* (09/01/24 5:23 AM)Invalid Interpretation CodeRemisol HemeBasophils/100 WBC (Bld) 0.6 %Normal0.0 - 2.0 %Remisol HemeBasophils/Leukocytes Auto (Bld) [Pure # fraction]0.0 E9/LNormal0.0 - 0.2 E9/LRemisol HemeEosinophils (Bld) [#/Vol]0.1 E9/LNormal0.0 - 0.5 E9/LRemisol HemeEosinophils/100 WBC (Bld)0.8 %Normal0.0 - 8.0 %Remisol HemeErythrocyte distribution width (RBC) [Ratio]16.7 %High10.9 - 14.2 %Remisol HemeHypochromia Auto Ql (Bld)PRESENT *NA* (09/01/24 5:23 AM)Invalid Interpretation CodeRemisol HemeLymphocytes (Bld) [#/Vol]1.4 E9/LNormal1.0 - 4.0 E9/LRemisol HemeLymphocytes/100 WBC (Bld)19.3 % Dgccsd67.0 - 50.0 %Remisol HemeMCH (RBC) [Entitic mass]29.0 csSrficn56.0 - 34.0 pgRemisol HemeMCHC (RBC) [Mass/Vol]33.8 g/bWHsagbc60.4 - 36.0 gm/dLRemisol Heme MCV (RBC) [Entitic vol]85.6 tOFhsbmd17.0 - 100.0 fLRemisol HemeMicrocytes Ql (Bld)PRESENT *NA* (09/01/24 5:23 AM)Invalid Interpretation CodeRemisol HemeMonocytes (Bld) [#/Vol] 0.6 E9/LNormal0.2 - 1.0 E9/LRemisol HemeMonocytes/100 WBC (Bld)8.6 %Normal4.0 - 14.0 %Remisol HemeNeutrophils (Bld) [#/Vol]5.2 E9/LNormal2.0 - 7.5 E9/LRemisol HemeNeutrophils/100 WBC (Bld)70.7 %Zmqhdp37.0 - 75.0 %Remisol HemePlatelet mean volume (Bld) [Entitic vol]8.0 fLNormal6.4 - 10.8 fLRemisol HemePlatelets (Bld) [#/Vol]189.0 E9/PHjmcwg782.0 - 500.0 E9/LRemisol HemePolychromasia LM Ql (Bld) PRESENT *NA* (09/01/24 5:23 AM)Invalid Interpretation CodeRemisol HemeRBC (Bld) [#/Vol]2.3 E12/LLow4.3 - 5.9 E12/LRemisol HemeRBC size Nom (Bld)SEE MORPHOLOGY *NA* (09/01/24 5:23 AM)Invalid Interpretation CodeRemisol HemeWBC corrected for nucl RBC Auto (Bld) [#/Vol]7.3 E9/LNormal4.0 - 11.0 E9/LRemisol HemeHct & Hgbon 12-49-2432Cnwpknodiq (Bld) [Volume fraction]24.1 %Low37.7-49.0[facility] HospitalComment on above:Performed By: #### [id number] #### [facility] [address], [place] [address]Dsipihnxnw (Bld) [Mass/Vol]8.3 g/dLLow13.5-17.5FAccess Hospital DaytonComment on above:Performed By: #### [id number] #### [facility] [address], [place] [address]Kdhtyatybt (Bld) [Volume fraction]26.5 %Low37.7-49.0[facility] HospitalComment on above:Performed By: #### [id number] #### [facility] [address], [place] [address]Wdrhbkqblo (Bld) [Mass/Vol]9.1 g/dLLow13.5-17.5FAccess Hospital DaytonComment on above:Performed By: #### [id number] #### [facility] [address], [place] [address]Ozhdpwcukt (Bld) [Volume fraction]27.7 %Low37.7-49.0[facility] HospitalComment on above:Order Comment: per RN draw patient at 1115 Performed By: #### [id number] #### [facility] [address], [place] [address]Wcexumazzl (Bld) [Mass/Vol]9.4 g/dLLow13.5-17.5FAccess Hospital DaytonComment on above:Order Comment: per RN draw patient at 1115 Performed By: #### [id number] #### [facility] [address], [place] [address]Wxtxqanke Clinical Summaryon 61-17-2371Fpiqfyakn Clinical SummaryInpatient Clinical Summary [address] [address] Clinical Summary Person Information: Name: RADHA CABELLO Age: 83 Years : 1940 Sex: Male PCP: SCOTT TAI MD Marital Status: Phone: [phone] Race: White Ethnicity: Non- or Language: Kyrgyz Visit Id: Visit Reason: upper gi bleed Speciality: Acuity: Enc Type: Inpatient Med Service: Medical Arrival: 08/31/2024 17:40:13 Discharge: Dispo Type: Address: [address] [place] [address] [place] [id number] Provider Notes: Diagnosis: 3:HTN (hypertension), benign; 4:CAD [...] KABA, Candi Wilson Referring Physician: Follow up: Patient Education Information:[facility] HospitalInpatient Patient Summaryon 54-54-3753Gpherfjzx Patient SummaryInpatient Patient Summary [place] [address] Patient Discharge Instructions PERSON INFORMATION Name: RADHA CABELLO Date of : 1940 Current Date: 09/01/2024 08:57:41 PHYSICIANS Admitting Physician: Nicole Ojeda MD Primary Care Physician: CARLOS KABA, SCOTT Rod PCP Comment: Discharge Diagnosis: 3:HTN (hypertension), benign; 4:CAD (coronary artery disease); 5:Dyslipidemia;6:Hx of CABG Condition at Discharge: RADHA CABELLO [...] to find a nearby participating provider. Comment: IDESTINEY GEROLD Anny, have received the attached patient education materials/instructions and have verbalized understanding: Patient Signature Date Clinican/Nurse Signature Date HERE ARE THE MEDICATION CHANGES THAT OCCURRED DURING YOUR HOSPITAL STAY Medications to Continue with No Changes Other Medications aspirin 81 Milligram By Mouth every day. Last Dose: Next Dose: atorvastatin (atorvastatin 40 mg Tab) 2 Tablets. TAKE 1 TABLET BY MOUTH EVERYDAY AT BEDTIME. Last Dose: Next Dose: carvedilol (carvedilol 6.25 mg Tab) 1 Tablets 2 times a day. TAKE 1 TABLET BY MOUTH EVERY MORNING AND EVENING WITH MEALS. Last Dose: Next Dose: clopidogrel (clopidogrel 75 mg Tab) 1 Tablets. TAKE 1 TABLET BY MOUTH EVERY DAY. Last Dose: Next Dose: isosorbide mononitrate (isosorbide mononitrate 30 mg ER Tab) TAKE 1 TABLET BY MOUTH EVERY DAY. Last Dose: Next Dose: lisinopril (lisinopril 20 mg Tab) 1 Tablets By Mouth every day. TAKE 1 TABLET BY MOUTH EVERY DAY. Last Dose: Next Dose: magnesium oxide (magnesium oxide 400 mg Tab) 2 Tablets By Mouth., patient takes 840 mg by mouth daily Last Dose: Next Dose: Comment: MEDICATION LIST PROVIDED FOR YOU [...] to serve you. Thank you for [facility] HospitalInterdisciplinary Note - Case Manageron 09-01-2024 Interdisciplinary Note - Case ManagerInterdisciplinary Note - Explosive Ordnance Disposal Technician Patient awake and alert in bed with Wayne Pretty at bedside. Patient previously rounded with Nely LÓPEZ, see notes. Patient participated in dc planning. Patient reports PCP is Scott Palomo, admitting updated. DME and insurance verified. IMM reviewed and signed. SS consult for adv directives, patient reports he has adv directives already completed. Advised patient to provided copy to hospital andPCP, voiced understanding. Patient lives alone and is independent with all IADL's and ADL's and drives. Maria De Jesus will transport patient at dc. Denies any dc needs or concerns. CRM [facility] HospitalComment on above:Result Comment: Electronically Signed By: Mey Summers\Date and Time Signed: 09/01/24 09:03 EDTMICRO OTHER TESTSOrdered By: Eunice Cervantes on 95-24-4886Ctccjd blood panel (Stl)Positive *ABN* (09/01/24 3:53 PM)Invalid Interpretation CodeNegativeSAINT FRANCIS HOSPITAL – [place] Man SeroMain OR Intraoperative Recordon 62-46-0622Iqto OR Intraoperative RecordMain OR Intraoperative Record IntraOp Document Type FT Summary Primary Physician: Cindy KABA, Jazmin Colby Finalized Date/Time: 09/01/24 11:58:15 Pt. Name: RADHA CABELLO Anny Gomez/Sex: 1940 Male Med Rec #: [id number] Physician: Nicole Ojeda MD Financial #: [id number] Pt. Type: I Room/Bed: [place] [address] Admit/Disch: 08/31/24 17:40:13 - Institution: Case Times [...] RN Role Performed Anesthesiologist Surgeon - Primary Supervisor Estimator And Drafter - Primary Delivery Nurse Time In 09/01/24 11:48:00 09/01/24 11:48:00 09/01/24 11:48:00 Time Out 09/01/24 11:58:00 09/01/24 11:58:00 09/01/24 11:58:00 Procedure EGD(.) EGD(.) EGD(.) Comments Dr. Gentile is supervising Last Modified By: Angeles Fernandez RN, RN, Kristin N Sherman RN, Kristin N 09/01/24 11:58:06 09/01/24 11:58:06 09/01/24 11:58:06 Entry [...] No Time Out Miles Bell, Given Participants iCndy KABA, Jim Robledo RN, Kristin N, Sparks, Micala E Time [...] and tissue Entry 1 Skin Integrity Intact, [place], Warm, & Skin Abnormality No Dry Outcomes [...] Safety Strap, Pillow Und (more content not included)...[facility] HospitalMain OR PACU II Recordon 25-94-0845Wrci OR PACU II RecordMain OR PACU II Record PACU Phase II Document Type FT Summary Primary Physician: Jazmin White MD Finalized Date/Time: 09/01/24 13:45:16 Pt. Name: RADHA CABELLO/Sex: 1940 Male Med Rec #: [id number] Physician: Nicole Ojeda MD Financial #: [id number] Pt. Type: I Room/Bed: N305/01 Admit/Disch: 08/31/24 17:40:13 - Institution: Case Times [...] and monitors body temperature Evaluates postoperative respiratory statusEvaluates postoperative cardiac status Evaluates postoperative neurological status [...] individualized perioperative plan of care The patient's rightto privacy is maintained The patient's value system, [...] with or improved from baseline levels established preoperativelyThe patient's cardiovascular status is consistent with or improved from baseline levels established preoperatively The patient's neurological status is consistent with or improved from baseline levels established preoperatively The patient demonstrates and/or reports adequate pain control throughout the perioperative period The patient received appropriate medication(s), safely administered during the perioperativeperiod Finalized By: Peggy Perry RN Document Signatures Signed By: Peggy Perry RN 09/01/24 13:45NormalMemorial Health System Selby General HospitalMain OR Preoperative Recordon [id number] OR Preoperative RecordMain OR Preoperative Record Holding Area Document Type FT Summary Primary Physician: Cindy KABA, Jazmin Colby Finalized Date/Time: 09/01/24 11:18:49 Pt. Name: RADHA CABELLO /Sex: 1940 Male Med Rec #: [id number] Physician: Nicole Ojeda MD Financial #: [id number] Pt. Type: I Room/Bed: [place] [address] Admit/Disch: 08/31/24 17:40:13 - Institution: Case Times Holding FT Pre-Care Text: Verifies consent for planned procedure, identifies individual values and wishes concerning care, includes family members in perioperative teaching Secures patient's records' belongings, and valuables, maintains patient's dignity and privacy, and maintains patient confidentiality Entry 1 In Holding 09/01/24 11:11:00 Outcomes Met? Yes Last Modified By: Celia Mevlin RN 09/01/24 11:18:08 Post-Care Text: The patient participates in decisions affecting his or her perioperative plan of care The patient'sright to privacy is maintained Surgery Checklist FT [...] Signatures Signed By: Celia Melvin RN 09/01/24 11:18NormalMemorial Health System Selby General HospitalPatient Education - Texton 53-48-5595Dmyjfjt Education - TextPatient Education - Text NormalMemorial Health System Selby General HospitalRCOon 09-01-2024# of Xwour2Iisgxtu Interpretation City HospitalComment on above:Performed By: #### [id number] #### [facility] [address] [place], [place] [address]Nhrv [id number] Interpretation CodeMemorial Health System Selby General HospitalComment on above:Performed By: #### [id number] #### [facility] [address] [place], [place] [address]Nhihh to TransfuseYesNormalMemorial Health System Selby General HospitalComment on above:Performed By: #### [id number] #### [facility] [address] [place], [place] [address]Edxrwav TypeNone RequiredInvalid Interpretation CodeMemorial Health System Selby General HospitalComment on above:Performed By: #### [id number] #### [facility] [address] [place] [address]Hbx Oclt Bldon 98-28-1439Lnpfhf blood panel (Stl)Positive AbnormalNegativeMemorial Health System Selby General HospitalComment on above:Performed By: #### [id number] #### [facility] [address] [place] [address] 75118wNSSvv 15-94-2332fPUV99 mL/min/1.73 m3Xxgyag>=59[facility] HospitalComment on above:Performed By: #### [id number] #### [facility] [address] [place] [address] 25992Izd & Hgbon 40-45-8225Hcntbriekl (Bld) [Volume fraction]22.4 % Low37.7-49.0[facility] HospitalComment on above:Performed By: #### [id number] #### [facility] [address], [place] [address]Suabbtskor (Bld) [Mass/Vol]7.9 g/dLLow13.5-17.5Fisher Medstar Harbor HospitalComment on above:Performed By: #### [id number] #### [facility] [address], [place] [address]18iv [id number] labs from 03/30/2024: Per Dr. Adkins, please inform patient to STOP hydrochlorothiazide but stay on Farxiga. He needs to have repeat BMP in 3-4 weeks. Thank you.[facility] DaytonALL BASIC METABOLIC PANELon 47-58-2916Fhemh gap [Moles/Vol]13.2 mmol/LNOMS HealthcareCalcium [Mass/Vol]9.2 mg/dL8.5 - 10.1 mg/dL NOMS HealthcareChloride [Moles/Vol]107 mmol/L98 - 107 mmol/LNOMS HealthcareCO2 [Moles/Vol]28.1 mmol/L21.0 - 32.0 mmol/LNOMS HealthcareCreatinine [Mass/Vol]1.43 mg/dLHigh0.70 - 1.30 mg/dLNOMS HealthcareGFR/1.73 sq M.predicted CKD-EPI (S/P/Bld) [Vol rate/Area]58Low>=60 mL/min/1.73m 2NOMS HealthcareGlucose [Mass/Vol]89 mg/dL74 - 106 mg/dLNOMS HealthcareInterpretation and review of laboratory resultsAbnormalNOMS HealthcarePotassium [Moles/Vol]4.3 mmol/L3.5 - 5.1 mmol/LNOMS HealthcareSodium [Moles/Vol]144 mmol/L136 - 145 mmol/LNOMS HealthcareTBH EGFR-NON AF FVYWUBBH54Awk>=60 mL/min/1.73m 2NOMS HealthcareUrea nitrogen [Mass/Vol]29 mg/dLHigh7.0 - 18.0 mg/dLNOMS HealthcareUrea nitrogen/Creatinine [Mass ratio]20.3 mg/mgNOMS HealthcareCLINISYNCNOMS HealthcareOffice Visiton 42-45-0487Bxytqf-up [id number] Radha Cabello 1940 M Date Provider Department Center 03/22/2024 3848-CANDI QUIROS [facility] Family History Problem Relation Age of Onset Coronary artery disease Father Hypertension Father Family Status - Relation Status Age at Father Level of Service:69876 [place] OFFICE/OUTPATIENT ESTABLISHED MOD MDM 30 [facility] HospitalCA ECHO DOPPLER COMPLETEon 37-82-0918F[address] [address] Cardiology Report Signed Patient: RADHA CABELLO MR#: [id number] : 1940 Acct:[id number] Age/Sex: 83 / M ADM Date: 03/09/24 Loc: CARD Attending Dr: CANDI QUIROS Ordering Physician: CANDI QUIROS Date of Service: 03/09/24 Procedure(s): CA echo doppler complete Accession Number(s): [id number] cc: CANDI QUIROS; MIRTA TAIEL Patient Name: RADHA CABELLO MR#: [id number] : 1940 Exam Date: 03/09/2024 Ordering Doctor: [...] 1.14 m/s Peak Gradient: 4.81 mm[Hg], 5.70 mm (more content not included)...TBHRadiology, Radiologist, - 03/09/2024 [place] [address] Cardiology Report Signed Patient: RADHA CABELLO MR#: [id number] : 1940 Acct:[id number] Age/Sex: 83 / M ADM Date: 03/09/24 Loc: CARD Attending Dr: CANDI QUIROS Ordering Physician: CANDI QUIROS Date of Service: 03/09/24 Procedure(s): CA echo doppler complete Accession Number(s): [id number] cc: CANDI QUIROS; SCOTT TAI Patient Name: RADHA CABELLO MR#: [id number] : 1940 Exam Date: 03/09/2024 Ordering Doctor: [...] Dictated By: EARL PATRICK Signed By: 03/09/24 132 DD/ 25 TD/TT: Public Address System Operator: [facility]ORE HOSPITALJuan HealthcareRadiology Study observation (narrative)[facility] ServicesCA ECHO DOPPLER COMPLETEOrdered By: Radiologist Radiology on 83-95-2545[employer] Work Phone: ISTAT XRay CREon 15-73-5518Zewvnreyob [Mass/Vol]0.9 mg/dLNormal0.6-1.3FCity HospitalComment on above:Result Comment: ER/ESD physician is notified/shown all ISTAT results. Critical values may be confirmed by laboratory testing if deemed necessary by ER attending doctor.Performed By: #### ISCRE #### [address] Point of Care testing ,ISTAT GFR (> 60NormMagruder HospitalComment on above:Result Comment: GFR estimated reference range: According to KDOQI guidelines, <60 ml/min/1.73m2 is sufficient to diagnose a patient with chronic kidney disease. PERFORMED BY: [place] [address] PATHOLOGIST [employer]ST CONTROLLER ASSISTANT CORINNA MCDERMOTT M.D.Performed By: #### ISCRE #### [place] [id number] [facility] Point of Care testing ,ISTAT GFR (Non- Am> 60NormMagruder HospitalComment on above:Performed By: #### ISCRE #### [place] [id number] [facility] Point of Care testing ,MR abdomen wo/w conon 91-74-3677QM abdomen wo/w [facility] [address] [place] [address] MRI Report Signed Patient: Radha Cabello MR#: [id number] : 1940 Acct:[id number] Age/Sex: 81 / M ADM Date: 09/20/21 Loc: [facility] Room: Type: [facility] Attending Dr: Hasmukh Morelos DO Ordering [...] Ayala Jr., D.OErika09/20/2021 11:13 AM Dictation Location: [place] [address] Transcribed By: [facility] 09/20/21 1113 Dictated By: Layton Ayala Jr, DO 09/20/21 1057 Signed By: 09/20/21 1113NoCrystal Clinic Orthopedic CenterCULTURE URINEon 07-28-2021 CULTURE URINEIsolate 1 Enterobacter cloacae 50,000 cfu/ml of ORGANISM 1 Enterobacter cloacae ANTIBIOTIC M.I.C RX STATUS Piperacillin/Tazobactam <=4 S F Cefazolin >=64 R F Ceftazidime <=1 S F Ceftriaxone <=1 S F Ertapenem <=0.5 S F Imipenem 1 S F Amikacin <=2 S F Gentamicin <=1 S F Tobramycin <=1 S F Ciprofloxacin <=0.25 S F Levofloxacin <=0.12 S F Nitrofurantoin 128 R F Trimethoprim/Sulfamethoxazole <=20 S FNormalThe [facility] Medical CenterComment on above:Performed By: #### URCX ####[facility] [address] [place], [place] [address]Vq. Nelson ChangCT ABD/PELV W CONon 07-89-8036PA ABD/PELV W CONEXAMINATION: CT ABD/PELV W CON HISTORY: Abdominal pain [...] duodenal diverticulum. Bilateral renal cortical cysts. No hydronephrosis/nephrolithiasis. Right inguinal hernia containing portion of bladder dome in it. Fat-containing left-sided inguinal hernia. Prostatomegaly. Imaging findings are suggestive of infectious/inflammatory enterocolitis. Colonic diverticulosis. Electronically authenticated by: ANDRES GOINS Date: 2021-07-27 12:43NoKindred Healthcare AUTO DIFFon [id number] #0.1 103/ulNormal0.0-0.1The Lutheran Hospitalment on above:Performed By: #### CBC ####[facility] [address] [place] [id number].Yilan ChangBasophils/100 WBC (Bld)0.5 %Normal0.2-2.0The [facility] on above:Performed By: #### CBC ####[facility] Jgcncjppor[address] [place] [address]Dr.Yilan ChangEO #0.2 103/ulNormal0.0-0.7The [facility] CenterComment on above:Performed By: #### CBC ####[facility] Kytvgaqepc[address] [place] [address]Dr.Yilan ChangEosinophils/100 WBC (Bld)2.1 %Normal 0.9-7.0The [facility] on above:Performed By: #### CBC ####[facility] [address]cfyhkgbdu[address] [place] [address]Dr.Cloverkusum Pollock Erythrocyte distribution width (RBC) [Ratio]13.7 %Joletv85.0-15.0The [facility] on above:Performed By: #### CBC ####[facility] [address]cr[address] [place] [address]Dr.Nelson PollockHematocrit (Bld) [Volume fraction]42.8 %Xamxbc52.0-54.0The [facility] CenterComment on above:Performed By: #### CBC ####[facility] [address] [place] [address]Dr.Nelson PollockHemoglobin (Bld) [Mass/Vol]14.5 g/dL Vhixjb50.0-18.0The [facility] CenterComment on above:Performed By: #### CBC ####[facility] Hbjdcmrcmp[address] [place], [place] [address]Dr. Cloverlan ChangIG #0.04 10e3/ulCritically high0.00-0.03The [facility] CenterComment on above:Performed By: #### CBC ####[facility] Rwbkgaitcx[address] [place], [place] [address]Dr.Nelson ChangIG %0.4 %Normal0.0-0.5The [facility] CenterComment on above:Performed By: #### CBC ####[facility] Senypeaivs[address] [place], [place] [address]Dr.Nelson PollockLYMPH #1.7 103/ulNormal1.2-3.8The [facility] CenterComment on above:Performed By: #### CBC ####[facility] Dmlrgyoabh[address] [place], [place] [address]Dr. Nelson PollockLymphocytes/100 WBC (Bld)15.6 %Critically low20.5-60.0The [facility] CenterComment on above:Performed By: #### CBC ####[facility] Jfeirxymwn[address] [place], [place] [address]Dr.Nelson PollockMANUAL DIFF REQ NONormalThe [facility] CenterComment on above:Performed By: #### CBC ####[facility] Pqvjvufspz[address] [place], [place] [address]Dr. Nelson PollockMCH (RBC) [Entitic mass]29.2 qbSekrbi29.9-34.0The [facility] Comment on above:Performed By: #### CBC ####[facility] Bibszcdpdn6[address] [place], [place] [address]Dr.Nelson DimitriHC (RBC) [Mass/Vol]33.9 g/dL Ogztgz72.9-35.2The [facility] CenterComment on above:Performed By: #### CBC ####[facility] Ygzoppriuv[address] [place], [place] [address]Dr. Nelson PollockMCV (RBC) [Entitic vol]86.1 vYUiieft61.0-94.0The [facility] Comment on above:Performed By: #### CBC ####[facility] Ahhkrfkcbh[address] [place], [place] [address]Dr.Nelson PollockMONO #0.8 103/ulNormal0.3-0.8 The [facility] CenterComment on above:Performed By: #### CBC ####[facility] Ldfvycknaz0[address] [place], [place] [address]Dr.Nelson Pollock Monocytes/100 WBC (Bld)7.3 %Normal1.7-12.0The [facility] CenterComment on above: Performed By: #### CBC ####[facility] [address]zedoebnsn[address] [place], [place] [address]Dr.Nelson PollockNEUT #8.1 103/ulCritically high1.4-6.5 The [facility] CenterComment on above:Performed By: #### CBC ####[facility] [address]kfdhcwfrc[address] [place], [place] [address]Dr.Nelson Pollock Neutrophils/100 WBC (Bld)74.1 %Iqtuzb15.0-75.0The Salem HospitalComment on above:Performed By: #### CBC ####[facility] Gzczxpzkbf[address] [place], [place] [address]Dr.Nelson PollockPlatelet mean volume (Bld) [Entitic vol] 10.2 fLNormal9.5-13.5The [facility] CenterComment on above:Performed By: #### CBC ####[facility] [address]tqasucvld[address] [place], [place] [address]Dr. Nelson PollockPLT191 103/bhFkmgmx197-150Vse [facility] CenterComment on above: Performed By: #### CBC ####[facility] [address] [place] [address]Dr.Yilan PollockRBC4.97 106/ulNormal4.70-6.10The [facility] CenterComment on above:Performed By: #### CBC ####[facility] [address]jfe[address] [place] [address]Dr.Yilan PollockWBC11.0 103/ul Normal4.0-11.0Adena Pike Medical CenterComment on above:Performed By: #### CBC ####[facility] [address]ec[address]jtr[address] [place] [address]Dr. Nelson Renner URINE PROFILEon 07-57-0437Ezrhrqvlv Ql (U)NegativeNormalNEGATIVE The [facility] CenterComment on above:Performed By: #### MARÍA ELENA UMICRO #### [facility] Laboratory [address] [place] [address] Dr. Nelson Gallegos (U)SL CLOUDYAbnormalCLEARThAshtabula General HospitalComment on above:Performed By: #### MARÍA ELENA UMICRO #### [facility] Laboratory [address] [place] [address] Dr. Nelson Goodman (U)LT. YELLOWNormalYELLOWAdena Pike Medical CenterComformerly [facility] on above:Performed By: #### MARÍA ELENA UMICRO #### [facility] [address] [place] [address] Dr. Nelson Olsen micrscopic examination will be performed if indicated. NormalAdena Pike Medical CenterComment on above:Performed By: #### MARÍA ELENA UMICRO #### [facility] [address] [place] [address] Dr. Nelson PollockGlucose Ql (U)NegativeNormalNEGATIVEAdena Pike Medical CenterComment on above:Performed By: #### ERUR UMICRO #### [facility] Laboratory [address] [place] [address] Dr. Nelson PollockHemoglobin Ql (U)NegativeNormalNEGATIVEAdena Pike Medical Center Comment on above:Performed By: #### MARÍA ELENA UMICRO #### [facility] Laboratory [address] [place] [address] [address] Nelson Gallagher Ql (U)NegativeNormalNEGATIVEThe [facility] CenterComment on above:Performed By: #### MARÍA ELENA UMICRO #### [facility] [address] [place] [address] [address] Nelson PollockLEUKOCYTESSMALLAbnormalNEGATIVEAdena Pike Medical CenterComment on above:Performed By: #### MARÍA ELENA UMICRO #### [facility] [address] [place] [address] [address] Nelson Canales Ql (U)NegativeNormalNEGATIVEAdena Pike Medical CenterComment on above:Performed By: #### MARÍA ELENA UMICRO #### [facility] [address] [place] [address] Dr. Nelson PollockpH (U)5.0 [pH]Normal5-9The [facility] CenterComment on above: Performed By: #### MARÍA ELENA UMICRO #### [facility] Laboratory [address] [place] [address] [address] Nelson PollockSPEC GRAVITY<=1.863Ladjeycc0.005-<=1.025[facility] Comment on above:Performed By: #### MARÍA ELENA UMICRO #### [facility] [address] [place] [address] [address] Nelson Kline PROTEINNegativeNormalNEGATIVE/ TRACEThe [facility] Comment on above:Performed By: #### MARÍA ELENA UMICRO #### [facility] Laboratory [address] [place] [address] [address] Nelson Jennings MICRO INDINDICATEDNormalThAshtabula General HospitalComment on above: Performed By: #### MARÍA ELENA UMICRO #### [facility] Laboratory [address] [place] [address] [address] Nelson Mendozabilinogen Qn (U)0.2 {Christopher'U}/dLNormal0.2 - 1.0The Leslie HospitalComment on above:Performed By: #### ERUR UMICRO #### [facility] Laboratory [address] [place] [address] [address] Nelson PollockLACTATE/LACTIC ACIDon 32-94-6605Fppxlnz [Moles/Vol]1.2 mmol/L Normal0.7-2.0The [facility] CenterComment on above:Performed By: #### LACT #### [facility] Laboratory [address] [place] [address] [address] Nelson PollockLIPASEon 37-96-6095Xxjaqr [Catalytic activity/Vol]865.0 U/L Critically high23.0-300.0The [facility] CenterComment on above:Performed By: #### LIPA, HSTROPN, CMP ####[facility] Fsrrxidozr[address] [place] [address]Dr. Nelson PollockPROF 14(COMP METB)on 38-91-4876Wmtusui [Mass/Vol]4.1 g/dLNormal3.4-5.0The [facility] CenterComment on above:Performed By: #### LIPA, HSTROPN, CMP ####[facility] [address]acaqrgya[address] [place] [address]DrErika PollockAlbumin/Globulin [Mass ratio]1.2 {ratio}NormalThe [facility] CenterComformerly [facility] on above:Performed By: #### LIPA, HSTROPN, CMP ####[facility] [address]mpwodgifp[address] [place] [address]Dr. Nelson PollockALP [Catalytic activity/Vol]89 U/AZjrskk59-238Pck [facility] CenterComment on above:Performed By: #### LIPA, HSTROPN, CMP ####[facility] [address]ubfbcoyg37[address] [place] [address]DrErika PollockALT [Catalytic activity/Vol]43 U/IYrpvyv92-76Rgs [facility] CenterComment on above: Performed By: #### LIPA, HSTROPN, CMP ####[facility] Wgmwdogzdx57[address] [place] [address]Dr. Yilan ChangAnion gap [Moles/Vol]15.5 mmol/L NormalThe [facility] Medical CenterComment on above:Performed By: #### LIPA HSTROPN, CMP ####[facility] [address]axaxoix[address] [place] [address]Dr. Yikusum ChangAST [Catalytic activity/Vol]53 U/LCritically vhjv10-58Zob [facility] CenterComment on above:Performed By: #### LIPA, HSTROPN, CMP ####[facility] [address]ajgoiwawh37[address] [place] [address]Dr. Cloverlan Pollock Bilirubin [Mass/Vol]2.4 mg/dLCritically high0.2-1.3The [facility] CenterComment on above:Performed By: #### LIPA HSTROPN, CMP ####[facility] Zphdmnnkbq[address] [place], [place] [address]Dr. Yikusum ChangCalcium [Mass/Vol]8.5 mg/dLNormal8.5-10.1The [facility] CenterComment on above:Performed By: #### LIPA, HSTROPN, CMP ####[facility] Rekonxdjxt[address] [place], [place] [address]Dr. Yilan ChangChloride [Moles/Vol]105 mmol/LNormal 98-107The [facility] CenterComment on above:Performed By: #### LIPA, HSTROPN, CMP ####[facility] [address] [place], [place] [address]Dr. Yilan ChangCO2 [Moles/Vol]22.3 mmol/JSnnigx51.0-30.0The [facility] Comment on above:Performed By: #### LIPA, HSTROPN, CMP ####[facility] [address]krmzsepj[address] [place], [place] [address]Dr. Yilan ChangCreatinine [Mass/Vol]1.06 mg/dLNormal0.66-1.25The [facility] CenterComment on above: Performed By: #### LIPA, HSTROPN, CMP ####[facility] Oocgupizuc[address] [place], [place] [address]Dr. Yilan ChangEGFR-AF VENEZUELAN>60Normal>=60The [facility] CenterComment on above:Performed By: #### LIPRickey HSTROPN, CMP ####[facility] Ztekbvmjaz[address] [place] [address]Dr. Yilan ChangEGFR-NON AF VENEZUELAN>60Normal>=60The [facility] CenterComment on above:Performed By: #### LIPRickey HSTROPN, CMP ####[facility] Bofbtjygmd[address] [place] [address]Dr. Yilan ChangGlobulin (S) [Mass/Vol]3.4 g/dLNormalThe [facility] CenterComment on above:Performed By: #### LIPRickey HSTROPN, CMP ####[facility] Sbznaaawlu[address] [place], [place] [address]Dr. Yilan ChangGlucose [Mass/Vol]154 mg/dLCritically pvij84-574Bpz [facility] CenterComment on above:Performed By: #### LIPRickey HSTROPN, CMP ####[facility] Z[address]zclpj[address] [place], [place] [address]Dr. Yilan ChangPotassium [Moles/Vol]3.8 mmol/LNormal3.4-5.0The [facility] Comment on above:Performed By: #### LIPRickey HSTROPN, CMP ####[facility] S[address]plbgvuf[address] [place], [place] [address]Dr. Yilan ChangProtein [Mass/Vol]7.5 g/dLNormal6.1-8.2The [facility] CenterComment on above:Performed By: #### LIPRickey HSTROPN, CMP ####[facility] Cqsievjvvd[address] [place] [address]Dr. Yilan ChangSodium [Moles/Vol]139 mmol/LNormal 137-145The [facility] CenterComment on above:Performed By: #### LIPA HSTROPN, CMP ####[facility] Olfulfwexm[address] [place] [address]Dr. Yilan ChangUrea nitrogen [Mass/Vol]25.0 mg/dLCritically high7.0-18.0The [facility] CenterComment on above:Performed By: #### LIPBESSIE LangTROPN, CMP ####[facility] Whnhpebkbv[address] [place] [address]Dr. Nelson PollockUrea nitrogen/Creatinine [Mass ratio]23.6 mg/mgNoThe MetroHealth SystemComment on above:Performed By: #### LIPRickey HSTROPN, CMP ####[facility] Gtufdgdlij[address] [place] [address]Dr. Nelson Pollock PROTIMEon 58-90-6196LAQ Coag (PPP) [Relative time]1.07 {INR}NormalThe [facility] CenterComment on above:Performed By: #### PTT, PT ####[facility] Akzwpufpsf[address] [place], [place] [address]Dr. Nelson PollockINR GUIDELINES SEE BELOWNoThe MetroHealth SystemComment on above:Result Comment: DESIRED INR: 2.0 - 3.0 CONDITIONS NOT LISTED BELOW 2.5 - 3.5 FOR PROSTHETIC HEART VALVE REPLACEMENT 2.5 - 3.5 RECURRENT THROMBOSISPerformed By: #### PTT, PT ####[facility] Mikeutdfnj[address] [place], [place] [address]Dr. Nelson PollockPT Coag (PPP) [Time]11.5 sNormal9.0-11.6The [facility] CenterComment on above:Performed By: #### PTT, PT ####[facility] Dipvcwcrii[address] [place], [place] [address]Dr. Nelson PollockPTTon 34-13-7927qKTX Coag (Bld) [Time]24.9 jMhetjn98.3-36.2The Luther[facility] Hospitalment on above:Performed By: #### PTT, PT ####[facility] [address]ix[address]jtgx[address] [place], [place] [address]Dr. Nelson PollockTROPONIN, HIGH SENSITIVITYon 20-94-9928ZWBPQN53.6 pg/mL Normal4.0-42.2The [facility] on above:Result Comment: CUT-OFF POINTS HAVE BEEN ESTABLISHED BASED ON THE FOURTH UNIVERSAL DEFINITIONS OF MY OCARDIAL INFARCTION. THE UPPER REFERENCE LIMIT (URL) OF TROPONIN, DEFINED THE 99TH PERCENTILE OF cTnI DISTRIBUTION IN A REFERENCE POPULATION, HAS BEEN CONFIRMED THE DECISION THRESHOLD FOR TX DIAGNOSIS.Performed By: #### LIPRickey, HSTROPN, CMP ####[facility] [address]mvvqptzhv[address] [place] [address]Dr. Nelson Randolph MICROSCOPIC ONLYon 06-59-7510HRJKDQSDTLSKEVXDNwelkstxMUMP SEENAdena Pike Medical CenterComformerly [facility] on above:Performed By: #### MARÍA ELENA, UMICRO #### [facility] Laboratory [address] [place] [address] [address] Nelson Powell identified Cx Nom (U)INDICATEDWashington University Medical CenteralThAshtabula General HospitalComformerly [facility] on above:Performed By: #### MARÍA ELENA, UMICRO #### [facility] Laboratory [address] [place] [address] [address] Nelson Foster SEENNormalNONE SEENAdams County Regional Medical Center on above:Performed By: #### MARÍA ELENA, UMICRO #### [facility] Laboratory [address] [place] [address] [address] Nelson Spencerystals LM Nom (Urine sed)NONE SEENNormalNONE SEENAdena Pike Medical CenterComformerly [facility] on above:Performed By: #### MARÍA ELENA, UMICRO #### [facility] Laboratory [address] [place] [address] [address] Damon ChangEpithelial cells LM Ql (Urine sed)RARENormalNONE SEEN /RAREAdena Pike Medical CenterComformerly [facility] on above:Performed By: #### MARÍA ELENA, UMICRO #### [facility] Laboratory [address] [place] [address] [address] Nelson Trent SEENNormalNONE SEENAdena Pike Medical CenterComformerly [facility] on above:Performed By: #### MARÍA ELENA, UMICRO #### [facility] [address] [address] [address] Nelson PollockWjfxcDSS2-9Xgvgygwj2-0Kfc [facility] on above:Performed By: #### MARÍA ELENA, UMICRO #### [facility] [address], [place] [address] Dr. Nelson PollockWBC (U) [#/Vol]/uLAbNoelle Protestant Deaconess HospitalComment on above:Performed By: #### LEISA RING #### [facility] [address], [place] [address] Dr. Nelson PollockXR CHEST 1 Von [id number] CHEST 1 VEXAM: CHEST 1 VIEW HISTORY: Abdominal pain TECHNIQUE: Chest, one view. COMPARISON: 05/06/2021 FINDINGS: There are low lung volumes with bibasilar atelectasis. No focal consolidation, pleural effusion, or pneumothorax. Pulmonary vasculature is within normal limits. There are median sternotomy changes and upper limits of normal heart size. IMPRESSION: 1. No acute cardiopulmonary disease. Electronically authenticated by: PERNELL SARMIENTO Date: 2021-07-26 16:40[facility]vue HospitalBasi Metabolic Panelon 45-78-6188Fvlbw gap [Moles/Vol]16 mmol/OZenrwc38-45Ysxnnjpe [place] Medical SpecialistComment on above:Result Comment: Effective 04/25/2019 reference range changed.Performed By: #### BMP #### [facility] [address], [place] [id number] [Mass/Vol]9.5 mg/dLNormal8.6-10.2[place] Medical SpecialistComment on above:Performed By: #### BMP #### [facility] [address], [place] [id number] [Moles/Vol]106 mmol/INgtkul21-559Kvqbsdku [place] Medical SpecialistComment on above:Performed By: #### BMP #### [facility] [address], [place] [id number] [Moles/Vol]24 mmol/UVdiezb43-50Imbqwffl [place] Medical SpecialistComment on above:Performed By: #### BMP #### [facility] [address], [place] [id number] [Mass/Vol]0.9 mg/dLNormal0.7-1.4[facility] [place] Medical SpecialistComment on above:Performed By: #### BMP #### [facility] [address], [place] [id number] mL/min/1.04u0Wmnhje>60NortW[facility]sworth-[facility]ittman Hospital SpecialistComment on above:Performed By: #### BMP #### [facility] [address], [place] [id number] mL/min/1.51e4Pyxnoo>60NortWadsworth-Rittman Hospital SpecialistComment on above:Performed By: #### BMP #### [facility] [address], [place] [id number] [Mass/Vol]85 mg/aEOxhasq27-05Qfzrxblw [place] Medical SpecialistComment on above:Result Comment: For FASTING Glucose --- ADA reference ranges: Normal 65-99 mg/dl Prediabetes 100-125 Diabetes >/= 126Performed By: #### BMP #### [facility] [address], [place] [id number] [Moles/Vol]4.1 mmol/LNormal3.5-5.5NoCleveland Clinic Union Hospital SpecialistComment on above:Performed By: #### BMP #### [facility] [address], [place] [id number] [Moles/Vol]142 mmol/XJwommb532-449Imchbmxf [place] Medical SpecialistComment on above:Performed By: #### BMP #### [facility] [address], [place] [id number] nitrogen [Mass/Vol]16 mg/dLNormal7-25NortWadsworth-Rittman Hospital SpecialistComment on above:Performed By: #### BMP #### [facility] [address], [place] [id number] AUTO DIFFon [id number] #0.1 103/ulNormal0.0-0.1A[facility] Pike Medical CenterComment on above:Performed By: #### CBC #### [facility] [address] [address] [address] Yilan ChangBasophils/100 WBC (Bld)0.8 %Normal0.2-2.0The [facility] Comment on above:Performed By: #### CBC #### [facility] [address] [place] [address] Dr. Nelson Hsu #0.3 103/ulNormal0.0-0.7The [facility] CenterComment on above: Performed By: #### CBC #### [facility] [address] [place] [address] Dr. Nelson De Santiagoosinophils/100 WBC (Bld)2.8 %Normal0.9-7.0The [facility] Comment on above:Performed By: #### CBC #### [facility] [address] [place] [address] Dr. Nelson De Santiagorythrocyte distribution width (RBC) [Ratio]13.2 %Iowsbl09.0-15.0 The [facility] CenterComment on above:Performed By: #### CBC #### [facility] [address] [place] [address] Dr. Nelson PollockHematocrit (Bld) [Volume fraction]45.8 %Vqofsf74.0-54.0The [facility] CenterComment on above:Performed By: #### CBC #### [facility] [address] [place] [address] Dr. Nelson PollockHemoglobin (Bld) [Mass/Vol]15.6 g/kDTsfoft99.0-18.0The [facility] CenterComment on above:Performed By: #### CBC #### [facility] [address] [place] [address] Dr. Nelson Lacy #0.04 10e3/ulCritically high0.00-0.03The [facility] Comment on above:Performed By: #### CBC #### [facility] [address] [place] [address] Dr. Nelson Lacy %0.4 %Normal0.0-0.5The [facility] CenterComment on above: Performed By: #### CBC #### [facility] [address] [place] [address] Dr. Nelson Almanza #3.1 103/ulNormal1.2-3.8The [facility] CenterComment on above:Performed By: #### CBC #### [facility] [address] [place] [address] Dr. Nelson Dickensmphocytes/100 WBC (Bld)27.2 %Zphguy13.5-60.0The [facility] CenterComment on above:Performed By: #### CBC #### [facility] [address] [place] [address] Dr. Nelson Vieira DIFF REQNONormalThe [facility] CenterComment on above: Performed By: #### CBC #### [facility] [address] [place] [address] Dr. Nelson Mosley (RBC) [Entitic mass]29.1 iqCfqbqq52.9-34.0The [facility] CenterComment on above:Performed By: #### CBC #### [facility] [address] [place] [address] Dr. Nelson Mosley (RBC) [Mass/Vol]34.1 g/kEAgxkht25.9-35.2The [facility] CenterComment on above:Performed By: #### CBC #### [facility] [address] [place] [address] Dr. Nelson Reza (RBC) [Entitic vol]85.3 mHSzjanl36.0-94.0The [facility] CenterComment on above:Performed By: #### CBC #### [facility] [address] [place] [address] Dr. Nelson Duncan #1.0 103/ulCritically high0.3-0.8The [facility] Comment on above:Performed By: #### CBC #### [facility] [address] [place] [address] Dr. Nelson Garciaocytes/100 WBC (Bld)9.0 %Normal1.7-12.0[facility] Comment on above:Performed By: #### CBC #### [facility] [address] [address] [address] Nelson Chambers #6.8 103/ulCritically high1.4-6.5The [facility] Comment on above:Performed By: #### CBC #### [facility] [address] [address] [address] Nelson Laroseutrophils/100 WBC (Bld)59.8 %Xnehzy70.0-75.0The [facility] CenterComment on above:Performed By: #### CBC #### [facility] [address] [place] [address] Dr. Nelson PollockPlatelet mean volume (Bld) [Entitic vol]10.3 fLNormal9.5-13.5The [facility] CenterComment on above:Performed By: #### CBC #### [facility] [address] [place] [address] Dr. Nelson PollockPLT196 103/kdXyabfe017-104Iax [facility] CenterComment on above: Performed By: #### CBC #### [facility] [address] [place] [address] Dr. Nelson PollockRBC5.37 106/ulNormal4.70-6.10The [facility] CenterComment on above:Performed By: #### CBC #### [facility] [address] [place] [address] Dr. Nelson PollockWBC11.3 103/ulCritically high4.0-11.0The [facility] CenterComment on above:Performed By: #### CBC #### [facility] [address] [place] [address] Dr. Nelson PollockPROF CHEM 8 (BAS METB)on 64-76-7364Waenk gap [Moles/Vol]10.8 mmol/LNormalThe [facility] CenterComment on above:Performed By: #### BMP, HSTROPN ####[facility] [address] [address]Dr. Nelson PollockCalcium [Mass/Vol]8.8 mg/dLNormal8.4-10.2The [facility] CenterComment on above:Performed By: #### SANDRO, HSTROPN ####[facility] [address] [place], [place]Dr. Yilan ChangChloride [Moles/Vol]104 mmol/CKopkgo14-128Svl [facility] CenterComment on above:Performed By: #### SANDRO, HSTROPN ####[facility] [address] [place], [place]Dr. Yilan ChangCO2 [Moles/Vol]26.7 mmol/LNormal 22.0-30.0The [facility] CenterComment on above:Performed By: #### SANDRO, HSTROPN ####[facility] [address] [place], [place]Dr. Yilan ChangCreatinine [Mass/Vol]0.95 mg/dLNormal0.66-1.25The [facility] Comment on above:Performed By: #### SANDRO, HSTROPN ####[facility] [address] [place], [place] [address]Dr. Yilan ChangEGFR-AF VENEZUELAN>60Normal>=60The [facility] CenterComment on above:Performed By: #### SANDRO, HSTROPN ####[facility] [address] [place] [address]Ki. Yilan ChangEGFR-NON AF VENEZUELAN>60Normal>=60The [facility] Comment on above:Performed By: #### SANDRO, HSTROPN ####[facility] [address] [place], [place] [address]Dr. Yilan ChangGlucose [Mass/Vol]121 mg/dLCritically imul49-508Ryt [facility] CenterComment on above: Performed By: #### SANDRO, HSTROPN ####[facility] [address] [place], [place] [address]Dr. Yilan ChangPotassium [Moles/Vol]3.5 mmol/LNormal 3.4-5.0The [facility] CenterComment on above:Performed By: #### SANDRO, HSTROPN ####[facility] [address] [place], [place] [address]Dr. Nelson PollockSodium [Moles/Vol]138 mmol/FWkujbu838-367Cqp Lutheran Hospitalment on above:Performed By: #### BMP, HSTROPN ####[facility] [address] [place], [place]Dr. Nelson ChangUrea nitrogen [Mass/Vol]12.0 mg/dLNormal9.0-20.0The [facility] CenterComment on above:Performed By: #### BMP, HSTROPN ####[facility] [address] [place], [place] [address]Im. Cloverlan ChangUrea nitrogen/Creatinine [Mass ratio]12.6 mg/mgZanesville City Hospital on above:Performed By: #### BMP, HSTROPN ####[facility] [address] [place], [place]Dr. Nelson Pollock TROPONIN, HIGH SENSITIVITYon 66-43-1068MJINSQ01.0 pg/mLNormal4.0-42.2The [facility] on above:Result Comment: CUT-OFF POINTS HAVE BEEN ESTABLISHED BASED ON THE FOURTH UNIVERSAL DEFINITIONS OF MYOCARDIAL INFARCTION. THE UPPER REFERENCE LIMIT (URL) OF TROPONIN, DEFINED THE 99TH PERCENTILE OF cTnI DISTRIBUTION IN A REFERENCE POPULATION, HAS BEEN CONFIRMED THE DECISION THRESHOLD FOR TX DIAGNOSIS.Performed By: #### SANDRO, HSTROPN ####[facility] [address] [place], [place]Dr. Nelson PollockXR CHEST 1 Von [id number] CHEST 1 VEXAM: XR CHEST 1 V HISTORY: Hypertensive disorder [...] Electronically authenticated by: CARLTON GALINDO Date: 2021-05-06 20:[address] [place], [place] [address]BNPon 71-91-8463Ufvdfmhvmys peptide B (Bld) [Mass/Vol]268.0 pg/mLNormal<=1,800.0The [facility] CenterComment on above:Performed By: #### BNP #### [facility] [address] [address] [address] Nelson JaramilloC AUTO DIFFon 04-62-0980TBCI #0.1 103/ulNormal0.0-0.1The [facility] CenterComment on above:Performed By: #### CBC #### [facility] [address] [place] [address] Dr. Nelson PollockBasophils/100 WBC (Bld)0.6 %Normal0.2-2.0[facility] Comment on above:Performed By: #### CBC #### [facility] [address] [place] [address] Dr. Nelson Hsu #0.2 103/ulNormal0.0-0.7The [facility] CenterComment on above: Performed By: #### CBC #### [facility] [address] [address] [address] Nelson De Santiagoosinophils/100 WBC (Bld)1.6 %Normal0.9-7.0The [facility] Comment on above:Performed By: #### CBC #### [facility] [address] [place] [address] Dr. Nelson De Santiagorythrocyte distribution width (RBC) [Ratio]13.9 %Jdgrop78.0-15.0 The [facility] CenterComment on above:Performed By: #### CBC #### [facility] [address] [place] [address] Dr. Nelson PollockHematocrit (Bld) [Volume fraction]46.4 %Hkbjxm24.0-54.0The [facility] CenterComment on above:Performed By: #### CBC #### [facility] [address] [place] [address] Dr. Nelson PollockHemoglobin (Bld) [Mass/Vol]15.5 g/sONvomjn35.0-18.0The [facility] CenterComment on above:Performed By: #### CBC #### [facility] [address] [place] [address] Dr. Nelson Lacy #0.04 10e3/ulCritically high0.00-0.03The [facility] Comment on above:Performed By: #### CBC #### [facility] [address] [place] [address] Dr. Nelson Lacy %0.4 %Normal0.0-0.5The [facility] CenterComment on above: Performed By: #### CBC #### [facility] [address] [place] [address] Dr. Nelson Almanza #2.3 103/ulNormal1.2-3.8The [facility] CenterComment on above:Performed By: #### CBC #### [facility] [address] [place] [address] Dr. Nelson Yousifhocytes/100 WBC (Bld)22.8 %Wsqmbo35.5-60.0The [facility] CenterComment on above:Performed By: #### CBC #### [facility] [address] [place] [address] Dr. Nelson Vieira DIFF REQNONormalThe [facility] CenterComment on above: Performed By: #### CBC #### [facility] [address] [place] [address] Dr. Nelson Mosley (RBC) [Entitic mass]28.3 rcWmktag07.9-34.0The [facility] CenterComment on above:Performed By: #### CBC #### [facility] [address] [place] [address] Dr. Nelson Mosley (RBC) [Mass/Vol]33.4 g/fFWolzze04.9-35.2The [facility] CenterComment on above:Performed By: #### CBC #### [facility] [address] [place] [address] Dr. Nelson Mosley (RBC) [Entitic vol]84.7 bUHswniv90.0-94.0The [facility] CenterComment on above:Performed By: #### CBC #### [facility] [address] [place] [address] Dr. Nelson Duncan #0.8 103/ulNormal0.3-0.8The [facility] CenterComment on above:Performed By: #### CBC #### [facility] [address] [place] [address] Dr. Nelson Garciaocytes/100 WBC (Bld)8.0 %Normal1.7-12.0The [facility] Comment on above:Performed By: #### CBC #### [facility] [address] [place] [address] Dr. Nelson Chambers #6.8 103/ulCritically high1.4-6.5The [facility] Comment on above:Performed By: #### CBC #### [facility] [address] [place] [address] Dr. Nelson Laroseutrophils/100 WBC (Bld)66.6 %Wlgyfm79.0-75.0The [facility] CenterComment on above:Performed By: #### CBC #### [facility] [address] [place] [address] Dr. Nelson Damon mean volume (Bld) [Entitic vol]10.6 fLNormal9.5-13.5The [facility] CenterComment on above:Performed By: #### CBC #### [facility] [address] [place] [address] Dr. Nelson PollockPLT201 103/unNoezij324-303Jqh [facility] CenterComment on above: Performed By: #### CBC #### [facility] [address] [place] [address] Dr. Nelson PollockRBC5.48 106/ulNormal4.70-6.10The [facility] CenterComment on above:Performed By: #### CBC #### [facility] [address] [place] [address] Dr. Nelson PollockWBC10.2 103/ulNormal4.0-11.0The Luther[facility] Hospitalment on above:Performed By: #### CBC #### [facility] [address] [address] [address] Nelson Angela 14(COMP METB)on 66-00-1245Dfnmkvd [Mass/Vol]3.8 g/dLNormal 3.5-5.0The [facility] CenterComment on above:Performed By: #### CMP, HSTROPN #### [facility] [address] [address] [address] Nelson PollockAlbumin/Globulin [Mass ratio]1.2 {ratio}NormalThe [facility] CenterComment on above:Performed By: #### CMP, HSTROPN #### [facility] [address] [place] [address] Dr. Nelson SanP [Catalytic activity/Vol]73 U/MGazzwv65-184Hjq [facility] CenterComment on above:Performed By: #### CMP, HSTROPN #### [facility] [address] [place] [address] Dr. Nelson Mccauley [Catalytic activity/Vol]20 U/LCritically jcd89-36Roq [facility] CenterComment on above:Performed By: #### CMP, HSTROPN #### [facility] [address] [place] [address] Dr. Nelson Mcnair gap [Moles/Vol]11.0 mmol/LNormalThe [facility] on above:Performed By: #### CMP, HSTROPN #### [facility] [address] [place] [address] Dr. Nelson PollockAST [Catalytic activity/Vol]18 U/TFqfeut11-67Zrm [facility] Hospitalment on above:Performed By: #### CMP, HSTROPN #### [facility] [address] [place] [address] Dr. Nelson PollockBilirubin [Mass/Vol]1.7 mg/dLCritically high0.2-1.3The [facility] CenterComment on above:Performed By: #### CMP, HSTROPN #### [facility] [address] [address] [address] Nelson PollockCalcium [Mass/Vol]8.9 mg/dLNormal8.4-10.2The [facility] Comment on above:Performed By: #### CMP, HSTROPN #### [facility] [address] [address] [address] Nelson PollockChloride [Moles/Vol]105 mmol/ZEkwgbm66-242Bte [facility] Comment on above:Performed By: #### CMP, HSTROPN #### [facility] [address] [address] [address] Nelson PollockCO2 [Moles/Vol]26.5 mmol/SDtuyvm73.0-30.0The [facility] Comment on above:Performed By: #### CMP, HSTROPN #### [facility] [address] [address] [address] Nelson PollockCreatinine [Mass/Vol]0.82 mg/dLNormal0.66-1.25The [facility] CenterComment on above:Performed By: #### CMP, HSTROPN #### [facility] [address] [address] [address] Nelson De SantiagoGFR-AF VENEZUELAN>60Normal>=60The [facility] CenterComment on above:Performed By: #### CMP, HSTROPN #### [facility] [address] [address] [address] Nelson De SantiagoGFR-NON AF VENEZUELAN>60Normal>=60The [facility] CenterComment on above:Performed By: #### CMP, HSTROPN #### [facility] [address] [address] [address] Nelson PollockGlobulin (S) [Mass/Vol]3.3 g/dLNormalThe [facility] CenterComment on above:Performed By: #### CMP, HSTROPN #### [facility] [address] [address] [address] Nelson PollockGlucose [Mass/Vol]87 mg/aSMedovt58-933Aqq [facility] Comment on above:Performed By: #### CMP, HSTROPN #### [facility] [address] [address] [address] Nelson PollockPotassium [Moles/Vol]3.5 mmol/LNormal3.4-5.0[facility] Comment on above:Performed By: #### CMP, HSTROPN #### [facility] [address] [address] [address] Nelson PollockProtein [Mass/Vol]7.1 g/dLNormal6.1-8.2The [facility] Comment on above:Performed By: #### CMP, HSTROPN #### [facility] [address] [place] [address] Dr. Nelson Whittingtondium [Moles/Vol]139 mmol/YOcxwmd054-771MbnAdena Pike Medical Center Comment on above:Performed By: #### CMP, HSTROPN #### [facility] [address] [address] [address] Nelson PollockUrea nitrogen [Mass/Vol]13.0 mg/dLNormal9.0-20.0[facility] CenterComment on above:Performed By: #### CMP, HSTROPN #### [facility] [address] [place] [address] Dr. Nelson Horner nitrogen/Creatinine [Mass ratio]15.9 mg/mgNormalThe [facility] CenterComment on above:Performed By: #### CMP, HSTROPN #### [facility] [address] [place] [address] Dr. Nelson Vargas, HIGH SENSITIVITYon 08-43-7480ROWMGV01.4 pg/mLCritically high4.0-42.2The [facility] CenterComment on above:Result Comment: CUT-OFF POINTS HAVE BEEN ESTABLISHED BASED ON THE FOURTH UNIVERSAL DEFINITIONS OF MYOCARDIAL INFARCTION. THE UPPER REFERENCE LIMIT (URL) OF TROPONIN, DEFINED THE 99TH PERCENTILE OF cTnI DISTRIBUTION IN A REFERENCE POPULATION, HAS BEEN CONFIRMED THE DECISION THRESHOLD FOR TX DIAGNOSIS.Performed By: #### CMP, HSTROPN #### [facility] [address] [address] [address] Nelson PollockXR CHEST 1 Von 04-20-7581WD CHEST 1 VEXAMINATION: XR CHEST 1 V HISTORY: CHEST PAIN, [...] Electronically authenticated by: JASKARAN CARRERA Date: 2021-01-06 11:24[facility] HospitalBASI METABOLIC PANELon 12-44-3265Cwnilyx [Mass/Vol]8.5 mg/dL Low8.6-10.3The [facility] HospitalComment on above:Order Comment: No: Do not add to previous drawPerformed By: #### 11024, 52828 #### [facility] [address] [place] [address], USAChloride [Moles/Vol]108 mmol/BQkrq41-969Ofr [facility] HospitalComment on above:Order Comment: No: Do not add to previous drawPerformed By: #### 81310, 91775 #### [facility] [address] [place] [address], USACO2 [Moles/Vol]27 mmol/GHkpium94-13Sqq [facility] HospitalComment on above:Order Comment: No: Do not add to previous draw Performed By: #### 97433, 58870 #### [facility] [address] [place] [address], USACreatinine [Mass/Vol]0.89 mg/dLNormal0.70-1.30The [facility] HospitalComment on above:Order Comment: No: Do not add to previous drawPerformed By: #### 77929, 34296 #### [facility] [address] [place] [address], USAGFR/1.73 sq M predicted among blacks MDRD (S/P/Bld) [Vol rate/Area]mL/min/{1.73_m2}Normal>60[facility] Comment on above:Order Comment: No: Do not add to previous drawResult Comment: Calculation may not be valid for patients over 70 yearsPerformed By: #### 32179, 45669 #### [facility] [address] [place] [address], USAGFR/1.73 sq M predicted among non-blacks MDRD (S/P/Bld) [Vol rate/Area]mL/min/{1.73_m2}Normal>60[facility] Comment on above:Order Comment: No: Do not add to previous drawResult Comment: Calculation may not be valid for patients over 70 yearsPerformed By: #### 16727, 31598 #### [facility] [address] [place] [address], USAGlucose [Mass/Vol]78 mg/rMTegsbz86-513Jfi [facility] HospitalComment on above:Order Comment: No: Do not add to previous drawPerformed By: #### 67704, 32966 #### [facility] [address] [place] [address], USAPotassium [Moles/Vol]4.0 mmol/LNormal3.5-5.1The [facility] HospitalComment on above:Order Comment: No: Do not add to previous drawPerformed By: #### 92060, 54089 #### [facility] [address] [place] [address], USASodium [Moles/Vol]144 mmol/EJzkmcz993-023Lxk [facility] HospitalComment on above:Order Comment: No: Do not add to previous drawPerformed By: #### 29234, 62166 #### [facility] [address] [place] [address], USAUrea nitrogen [Mass/Vol]21 mg/dLNormal7-25The [facility] HospitalComment on above:Order Comment: No: Do not add to previous drawPerformed By: #### 05438, 23366 #### [facility] [address] [place] [address], USACalcium [Mass/Vol]8.3 mg/dLLow8.6-10.3The [facility] HospitalComment on above:Performed By: #### 85622, 01215, 21381 #### [facility] [address] [place] [address], USAChloride [Moles/Vol]108 mmol/GMrpl70-105Zqt [facility] HospitalComment on above:Performed By: #### 37054, 45572, 76995 #### [facility] [address] [place] [address], USACO2 [Moles/Vol]24 mmol/TQnjfbm85-38Muf [facility] HospitalComment on above:Performed By: #### 75109, 63422, 99505 #### [facility] [address] [place] [address], USACreatinine [Mass/Vol]0.90 mg/dLNormal0.70-1.30The [facility] HospitalComment on above:Performed By: #### 48663, 01088, 90177 #### [facility] [address] [place] [address], USAGFR/1.73 sq M predicted among blacks MDRD (S/P/Bld) [Vol rate/Area]mL/min/{1.73_m2}Normal>60[facility] Comment on above:Result Comment: Calculation may not be valid for patients over 70 yearsPerformed By: #### 96774, 30934, 76160 #### [facility] [address] [place] [address], USAGFR/1.73 sq M predicted among non-blacks MDRD (S/P/Bld) [Vol rate/Area]mL/min/{1.73_m2}Normal>60[facility] Comment on above:Result Comment: Calculation may not be valid for patients over 70 yearsPerformed By: #### 36636, 29385, 35686 #### [facility] [address] [place] [address], USAGlucose [Mass/Vol]101 mg/cOItyw19-001Hnv [facility] HospitalComment on above:Performed By: #### 73338, 87424, 23440 #### [facility] [address] [place] [address], USAPotassium [Moles/Vol]3.5 mmol/LNormal3.5-5.1The [facility] HospitalComment on above:Performed By: #### 06887, 09265, 64185 #### [facility] [address] [place] [address], USASodium [Moles/Vol]141 mmol/XFexapg137-958Izy [facility] HospitalComment on above:Performed By: #### 88064, 38153, 54318 #### [facility] [address] [place] [address], USAUrea nitrogen [Mass/Vol]24 mg/dLNormal7-25The [facility] HospitalComment on above:Performed By: #### 78778, 68586, 05053 #### [facility] [address] [place] [address], USACBC COMPLETE BLOOD COUNTon 60-09-7183Osibdeyfzxe distribution width (RBC) [Ratio]13.8 %Uqdmzu64.5-15.0The [facility] HospitalComment on above:Order Comment: No: Do not add to previous draw Performed By: #### 96413 #### [facility] [address] [place] [address], USAHematocrit (Bld) [Volume fraction]37.7 %Low39.0-50.0The [facility] HospitalComment on above:Order Comment: No: Do not add to previous drawPerformed By: #### 69821 #### [facility] [address] [place] [address], [facility]ARE SERVICESHemoglobin (Bld) [Mass/Vol]12.9 g/dLLow13.0-17.0The [facility] HospitalComment on above:Order Comment: No: Do not add to previous drawPerformed By: #### 07045 #### [facility] [address] [place] [address], [facility] (RBC) [Entitic mass]29.1 fjJwmgru65.0-33.0The [facility] HospitalComment on above:Order Comment: No: Do not add to previous drawPerformed By: #### 39802 #### [facility] [address] [place] [address], [facility]HC (RBC) [Mass/Vol]34.2 g/mWIgimzo49.0-35.0The [facility] HospitalComment on above:Order Comment: No: Do not add to previous drawPerformed By: #### 84443 #### [facility] [address] [place] [address], [facility] (RBC) [Entitic vol]85.1 zGPigovh03.0-98.0The [facility] HospitalComment on above:Order Comment: No: Do not add to previous drawPerformed By: #### 54332 #### [facility] [address] [place] [address], USANucleated RBC/100 WBC (Bld) [Ratio]0 %Normal0-0The [facility] HospitalComment on above:Order Comment: No: Do not add to previous drawPerformed By: #### 15054 #### [facility] [address] [place] [address], USAPLAT WJT266 10*3/oCRnvosx722-801Qgt [facility] HospitalComment on above:Order Comment: No: Do not add to previous draw Performed By: #### 55486 #### [facility] [address] [place] [address], USARBC (Bld) [#/Vol]4.43 10*6/uLNormal4.20-5.70The [facility] HospitalComment on above:Order Comment: No: Do not add to previous drawPerformed By: #### 91454 #### [facility] [address] [place] [address], USAWBC (Bld) [#/Vol]10.40 10*3/uLNormal4.00-10.60The [facility] HospitalComment on above:Order Comment: No: Do not add to previous drawPerformed By: #### 70824 #### [facility] [address] [place] [address], USALIPID PROFILEon 51-78-0550Kenmcqhzpnp [Mass/Vol]119 mg/dL Gga311-570Xbx [facility] HospitalComment on above:Result Comment: CHOLESTEROL REFERENCE RANGE: 20 YEARS AND OLDER CARDIOVASCULAR RISK Less than 200 mg/dl Low Risk 200 to 239 mg/dl Borderline Risk 240 mg/dl and greater High RiskPerformed By: #### 57391, 82431, 69057 #### [facility] [address] [place] [address], USACholesterol in HDL [Mass/Vol]37 mg/aXLcfbyv79-31Lmk [facility] HospitalComment on above:Result Comment: Slight variation in normal range could be due to gender and/or age. HDL CHOLESTEROL REFERENCE RANGE: 20 years and older Cardiovascular Risk > or =60 mg/dL Desirable 40 TO 59 mg/dL Low Risk <40 mg/dL High RiskPerformed By: #### 32793, 49728, 25443 #### [facility] [address] [place] [address], USACholesterol in LDL [Mass/Vol]68 mg/dLNormal0-130The [facility] HospitalComment on above:Result Comment: LDL IS A CALCULATION LDL IS ONLY VALID IF THE TRIG IS LESS THAN 400.Performed By: #### 53405, 06439, 56490 #### [facility] [address] [place] [address], USACholesterol.total/Cholesterol in HDL [Mass ratio]3.2 {ratio}Normal0.0-4.5The [facility] HospitalComment on above: Performed By: #### 89138, 48572, 97952 #### [facility] [address] [place] [address], USANON-HDL TTREGONWYQN98 mg/dLNormalThe [facility] HospitalComment on above:Performed By: #### 24137, 33483, 64326 #### [facility] [address] [place] [address], USATriglyceride [Mass/Vol]71 mg/xUZdocse55-565Fyx [facility] HospitalComment on above:Result Comment: TRIGLYCERIDE REFERENCE RANGE: 20 YEARS AND OLDER CARDIOVASCULAR RISK LESS THAN 150 mg/dl LOW RISK 150 TO 199 mg/dl BORDERLINE RISK 200 mg/dl AND GREATER HIGH RISKPerformed By: #### 67288, 45660, 69211 #### [facility] [address] [place] [address], USAVLDL CHOL14 mg/dLNormal0-40The [facility] HospitalComment on above:Performed By: #### 46129, 49939, 30813 #### [facility] [address] [place] [address], USAMAGNESIUM BLOODon 75-69-0634Lraigkatx [Mass/Vol]1.5 mg/dL Low1.9-2.7The [facility] HospitalComment on above:Order Comment: No: Do not add to previous drawPerformed By: #### 97628, 98679 #### [facility] [address] [facility] [place] [place] [address], USAMagnesium [Mass/Vol]1.3 mg/dLLow1.9-2.7The [facility] HospitalComment on above:Performed By: #### 83986, 64623 #### [facility] [address] [facility] [place] [address], USATROPONIN-Ion 60-41-2671Zkryrdnn I.cardiac [Mass/Vol]0.03 ng/mLNormal0.00-0.04The [facility] HospitalComment on above: Order Comment: No: Do not add to previous drawResult Comment: REFERENCE RANGES: 0.00 - 0.04 ng/ml NORMAL 0.05 - 0.50 ng/ml INDETERMINATE > 0.50 ng/ml CONSISTENT WITH AN M.I.Performed By: #### 99106, 24722, 62192 #### [facility] [address] [facility] [place] [address], USATroponin I.cardiac [Mass/Vol]0.03 ng/mLNormal0.00-0.04The [facility] HospitalComment on above:Order Comment: No: Do not add to previous drawResult Comment: REFERENCE RANGES: 0.00 - 0.04 ng/ml NORMAL 0.05 - 0.50 ng/ml INDETERMINATE > 0.50 ng/ml CONSISTENT WITH AN M.I.Performed By: #### 19627, 75690 #### [facility] [address] [facility] [place] [address], USAUFH HEPARIN ASSAYon 34-88-9959RXMRDAEUZROGJG HEPARIN0.63 IU/mLNormal0.30-0.70The [facility] HospitalComment on above: Result Comment: Rivaroxaban and Apixaban will interfere with the anti Xa assay used to monitor UFH and LMWH.Performed By: #### 62010 #### [facility] [address] [facility] [place] [address], USAUNFRACTIONATED HEPARIN0.48 IU/mLNormal0.30-0.70The [facility] HospitalComment on above:Order Comment: No: Do not add to previous drawResult Comment: Rivaroxaban and Apixaban will interfere with the anti Xa assay used to monitor UFH and LMWH.Performed By: #### 29241 #### [facility] [address] [facility] [place] [address], USAUNFRACTIONATED HEPARIN0.34 IU/mLNormal0.30-0.70The [facility] HospitalComment on above:Result Comment: Rivaroxaban and Apixaban will interfere with the anti Xa assay used to monitor UFH and LMWH.Performed By: #### 08832 #### [facility] [address] [facility] [place] [address], USAAPTTon 20-59-1975sTFM Coag (Bld) [Time]39.8 sHigh25.0-35.0 The [facility] HospitalComment on above:Order Comment: No: Do not add to previous drawResult Comment: ALL RESULTS MUST BE INTERPRETED WITH RESPECT TO BLOOD DRAWING ARTIFACT OR DILUTION ERROR OF ANTICOAGULANT AT THE TIME OF SAMPLING. THE APTT SHOULD NOT BE USED TO MONITOR UNFRACTIONATED HEPARIN THERAPY, THIS LABORATORY NO LONGER HAS AN ESTABLISHED THERAPEUTIC RANGE BASED ON THE APTT. IT IS RECOMMENDED THAT THE UFH - HEPARIN ASSAY (ANTI-XA ACTIVITY) BE USED FOR THIS PURPOSE.Performed By: #### 97743 #### [facility] [address] [facility] [place] [address], USABASIC METABOLIC PANELon 03-25-3399Fbwzdgw [Mass/Vol]8.6 mg/dLNormal8.6-10.3The [facility] HospitalComment on above:Order Comment: No: Do not add to previous drawPerformed By: #### 34421 #### [facility] [address] [facility] [place] [address], USAChloride [Moles/Vol]104 mmol/LTifexb90-055Che [facility] HospitalComment on above:Order Comment: No: Do not add to previous drawPerformed By: #### 61080 #### [facility] [address] [place] [address], USACO2 [Moles/Vol]27 mmol/ROoyhmh83-60Saw [facility] HospitalComment on above:Order Comment: No: Do not add to previous draw Performed By: #### 41487 #### [facility] [address] [place] [address], USACreatinine [Mass/Vol]0.99 mg/dLNormal0.70-1.30The [facility] HospitalComment on above:Order Comment: No: Do not add to previous drawPerformed By: #### 24730 #### [facility] [address] [place] [address], USAGFR/1.73 sq M predicted among blacks MDRD (S/P/Bld) [Vol rate/Area]mL/min/{1.73_m2}Normal>60[facility] Comment on above:Order Comment: No: Do not add to previous drawResult Comment: Calculation may not be valid for patients over 70 yearsPerformed By: #### 83937 #### [facility] [address] [place] [address], USAGFR/1.73 sq M predicted among non-blacks MDRD (S/P/Bld) [Vol rate/Area]mL/min/{1.73_m2}Normal>60[facility] Comment on above:Order Comment: No: Do not add to previous drawResult Comment: Calculation may not be valid for patients over 70 yearsPerformed By: #### 21908 #### [facility] [address] [place] [address], USAGlucose [Mass/Vol]126 mg/rYXied14-265Ixp [facility] HospitalComment on above:Order Comment: No: Do not add to previous drawPerformed By: #### 81766 #### [facility] [address] [place] [address], USAPotassium [Moles/Vol]2.9 mmol/LLow3.5-5.1The [facility] HospitalComment on above:Order Comment: No: Do not add to previous drawPerformed By: #### 49968 #### [facility] [address] [place] [address], USASodium [Moles/Vol]141 mmol/MGslvnk184-406Qdi [facility] HospitalComment on above:Order Comment: No: Do not add to previous drawPerformed By: #### 98772 #### [facility] [address] [place] [address], USAUrea nitrogen [Mass/Vol]25 mg/dLNormal7-25The [facility] HospitalComment on above:Order Comment: No: Do not add to previous drawPerformed By: #### 93258 #### [facility] [address] [place] [address], USACBC COMPLETE BLOOD COUNTon 20-13-8576Jgtxdzdbmnq distribution width (RBC) [Ratio]13.7 %Tiabcb35.5-15.0The [facility] HospitalComment on above:Order Comment: No: Do not add to previous draw Performed By: #### 15569 #### [facility] [address] [place] [address], USAHematocrit (Bld) [Volume fraction]39.8 %Tvudfr23.0-50.0The [facility] HospitalComment on above:Order Comment: No: Do not add to previous drawPerformed By: #### 91326 #### [facility] [address] [place] [address], USAHemoglobin (Bld) [Mass/Vol]13.7 g/gAJqcemt79.0-17.0The [facility] HospitalComment on above:Order Comment: No: Do not add to previous drawPerformed By: #### 53998 #### [facility] [address] [place] [address], USAMCH (RBC) [Entitic mass]28.7 ffDmdjga98.0-33.0The [facility] HospitalComment on above:Order Comment: No: Do not add to previous drawPerformed By: #### 04499 #### [facility] [address] [place] [address], [facility] SERVICESMCHC (RBC) [Mass/Vol]34.4 g/lYFtgpbi48.0-35.0The [facility] HospitalComment on above:Order Comment: No: Do not add to previous drawPerformed By: #### 03619 #### [facility] [address] [place] [address], [facility] SERVICESMCV (RBC) [Entitic vol]83.3 tPTudumo21.0-98.0The [facility] HospitalComment on above:Order Comment: No: Do not add to previous drawPerformed By: #### 47667 #### [facility] [address] [place] [address], USANucleated RBC/100 WBC (Bld) [Ratio]0 %Normal0-0The [facility] HospitalComment on above:Order Comment: No: Do not add to previous drawPerformed By: #### 52052 #### [facility] [address] [place] [address], USAPLAT YGV071 10*3/xRHtvucs038-089Dqi [facility] HospitalComment on above:Order Comment: No: Do not add to previous draw Performed By: #### 24191 #### [facility] [address] [place] [address], [facility] SERVICESRBC (Bld) [#/Vol]4.78 10*6/uLNormal4.20-5.70The [facility] HospitalComment on above:Order Comment: No: Do not add to previous drawPerformed By: #### 70190 #### [facility] [address] [place] [address], USAWBC (Bld) [#/Vol]9.34 10*3/uLNormal4.00-10.60The [facility] HospitalComment on above:Order Comment: No: Do not add to previous drawPerformed By: #### 20870 #### [facility] [address] [facility] [place] [address], USAPROTHROMBIN TIMEon 44-93-7157YET Coag (PPP) [Relative time] 1.12 {INR}Normal0.91-1.16The [facility] HospitalComment on above:Order Comment: No: Do not add to previous drawResult Comment: ACC[facility] RECOMMENDED INR FOR WARFARIN THERAPY ------- CONDITION INR PROPHYLAXIS OF VENOUS THROMBOSIS 2-3 (HIGH-RISK SURGERY) TREATMENT OF VENOUS THROMBOSIS 2-3 TREATMENT OF PULMONARY EMBOLISM 2-3 PREVENTION OF SYSTEMIC EMBOLISM: 2-3 ACUTE MYOCARDIAL INFARCTION TISSUE HEART VALVES VALVULAR HEART DISEASE ATRIAL FIBRILLATION RECURRENT SYSTEMIC EMBOLISM MECHANICAL HEART VALVE 2.5-3.5 FROM: ORAL ANTICOAGULANTS. MECHANISM OF ACTION, CLINICAL EFFECTIVENESS, AND OPTIMAL THERAPEUTIC RANGE. CHEST 1995;108:231S-246S.Performed By: #### 61573 #### [facility] [address] [facility] [place] [address], USAPT Coag (PPP) [Time]14.4 zQtnapp46.3-14.8The [facility] HospitalComment on above:Order Comment: No: Do not add to previous drawResult Comment: ALL RESULTS MUST BE INTERPRETED WITH RESPECT TO BLOOD DRAWING ARTIFACT OR DILUTION ERROR OF ANTICOAGULANT AT THE TIME OF SAMPLING.Performed By: #### 00910 #### [facility] [address] [place] [address], USATROPONIN-Ion 18-45-4510Boizzcna I.cardiac [Mass/Vol]0.02 ng/mLNormal0.00-0.04The [facility] HospitalComment on above: Order Comment: No: Do not add to previous drawResult Comment: REFERENCE RANGES: 0.00 - 0.04 ng/ml NORMAL 0.05 - 0.50 ng/ml INDETERMINATE > 0.50 ng/ml CONSISTENT WITH AN M.I.Performed By: #### 08083 #### [facility] [address] [place] [address], USAUFH HEPARIN ASSAYon 21-77-9233XBRHKHLIEINDZN HEPARIN<0.10 Critically low0.30-0.70The [facility] HospitalComment on above: Result Comment: Rivaroxaban and Apixaban will interfere with the anti Xa assay used to monitor UFH and LMWH. RESULTS CHECKED AND CALLED. ACCURATELY READ BACK BY Jesus Manuel Velez RN at 2148.Performed By: #### 10726 #### [facility] [address] [place] [address], [facility] Vital Signs Date TimeVital SignValuePerforming HkqobwsozIgavwdof41-09-2679 08:25-0400Body elvmsk658.6 cmScott Tai MD Work Phone: [phone] [facility] Memorial HospitalPihvhnikku94-01-5885 08:25-0400Body mass index (BMI) [Ratio]25.58 kg/o9MxlgwgScott Tai MD Work Phone: [phone] HospitalOfveghjtrj56-49-0002 08:25-0400Body crsqir33.59 kgScott Tai MD Work Phone: [phone] HospitalRmlnaktbyn48-29-3432 08:25-0400Diastolic blood yefpzewu66 mm[Hg]Scott Tai MD Work Phone: [phone]-[facility] HospitalAcwsaupzen35-71-0225 08:25-0400Heart rate73 /min Scott Tai MD Work Phone: [phone] HospitalWswbdszuda90-51-7222 08:25-2656FfG2% (BldA) [Mass fraction]99 %Scott Tai MD Work Phone: [phone])[facility]-[address] [place], [place] [address]Vdqiniyqke15-99-3448 08:25-0400Systolic blood engndqrc310 mm[Hg]Scott Tai MD Work Phone: [phone])[facility]-[address] [place], [place] [address]Cbufschjqd08-29-6583 09:25-0400Body vaguka081.6 cmKaren Hemmer PA Work Phone: [phone] [place], [place] 4542808-25-2025 09:25-0400Body mass index (BMI) [Ratio]25.37 kg/v3Fbuqq Hemmer PA Work Phone: [phone] [place], [place] 4542808-25-2025 09:25-0400Body iczfek06.04 kgKaren Hemmer PA Work Phone: [phone] [place], [place] 4542808-25-2025 09:25-0400Diastolic blood fabqnlsq92 mm[Hg]Joanna Hemmer PA Work Phone: [phone] [place], [place] 4542808-25-2025 09:25-0400Heart rate76 /min Joanna Hemmer PA Work Phone: [phone] [place], [place] 4542808-25-2025 09:25-0400Respiratory rate16 /minKaren Hemmer PA Work Phone: [phone] [place], [place] 4542808-25-2025 09:25-0417VyG9% (BldA) [Mass fraction]99 %Joanna Hemmer PA Work Phone: [phone] [place], [place] 4542808-25-2025 09:25-0400Systolic blood mm[Hg]Joanna Hemmer PA Work Phone: [phone] [place], [place] 4542805-16-2025 10:53-0400Hourly Rounding [facility]05-16-2025 10:53-0400Promise to ReturnPark[facility]05-16-2025 09:00-0400Hourly RoundingPark[facility]05-16-2025 09:00-0400Promise to ReturnPark[facility]05-16-2025 08:50-0400 Hourly RoundingPark[facility]05-16-2025 08:50-0400 Promise to ReturnPark[facility]05-16-2025 08:34-0400Heart rate87 /minPark[facility] Health [facility] Hospital 09-02-2024 08:34-5650SxF3% (BldA) [Mass fraction]98 %[facility]05-16-2025 08:32-0400Body tyyubafrbtx10.42 [degF][facility]05-16-2025 08:32-0400Diastolic blood yrnkcrgq80 mm[Hg][facility]05-16-2025 08:32-0400Mean blood jihijurd83 mm[Hg][facility]05-16-2025 08:32-0400Systolic blood fdlzyjco572 mm[Hg][facility]05-16-2025 04:06-0400Blood Pressure LocationPark[facility] Health [facility]05-16-2025 04:06-0400Body vowtmzwmlhk28.06 [degF][facility]05-16-2025 04:06-0400Diastolic blood myuorkln85 mm[Hg][facility]05-16-2025 04:06-0400Heart rate83 /minS[facility]Ohio[facility] 09-02-2024 04:06-0400Mean blood mm[Hg][facility]05-16-2025 04:06-0400Respiratory rate18 /minSylvesterOhioHealth Doctors Hospital05-16-2025 04:06-0849QjG8% (BldA) [Mass fraction]96 % [facility]05-16-2025 04:06-0400Systolic blood qsqfvnoy397 mm[Hg][facility]05-15-2025 23:45-0400Blood Pressure LocationPark[facility] 09-01-2024 23:45-0400Body pipeylpgabh52.7 [degF][facility]05-15-2025 23:45-0400Diastolic blood ounosnbq20 mm[Hg][facility]05-15-2025 23:45-0400Heart rate80 /min [facility]05-15-2025 23:45-0400Mean blood vjhzkooq58 mm[Hg][facility]05-15-2025 23:45-0400Respiratory rate16 /minParkview Health [facility] 09-01-2024 23:45-8973TeC0% (BldA) [Mass fraction]99 %[facility]05-15-2025 23:45-0400Systolic blood mumcgmzp259 mm[Hg] [facility] [facility]05-15-2025 21:09-0400Blood Pressure [facility] 21:09-0400Body bdgnbqciriu88.34 [degF][facility]05-15-2025 21:09-0400Mean blood hjizzbpm77 mm[Hg][facility]05-15-2025 21:09-0400Respiratory rate18 /minPark[facility]2025 18:00-0400Body lgtyuyorxzn47.06 [degF][facility]05-15-2025 12:15-0400Body dhtarxcdzqy33.24 [degF] [facility]05-15-2025 11:59-0400Body fpslizpkuik10.42 [degF]Nicole [facility]05-15-2025 11:55-0400Respiratory rate20 /minKristen [facility] 09-01-2024 11:48-0400Respiratory rate20 /minKristen [facility]05-15-2025 10:17-0400Heart rate80 /minKruriah [facility]05-15-2025 09:11-0400Heart rate78 /minKruriah [facility]05-15-2025 08:05-0400Heart rate75 /minNicole [facility]01-15-2025 08:25-0500Body .6 Aleah Murcia [employer] Work Phone: [phone] [place], [place] [address]Aqsivdmyql74-72-2163 08:25-0500Body mass index (BMI) [Ratio]26.33 kg/h8QwhbaqDebbi Murcia [employer]ER [employer]ER Work Phone: [phone] [place], [place] [address]Dendxxmssv93-78-7253 08:25-0500Body qgekbj75.58 kgDebbi Murcia [employer]ER [employer] T[employer]ER Work Phone: [phone] [place], [place] [address]Uoyghsyhyw53-83-2933 08:25-0500Diastolic blood vlzzlwyx21 mm[Hg]Debbi Murcia [employer] Work Phone: [phone] [place], [place] [address]Qbthllhkrq19-66-0560 08:25-0500Heart rate88 /min Debbi Murcia [employer]ER Work Phone: [phone] [place], [place] [address]Cjxvuyzjci04-82-1690 08:25-0500Respiratory rate17 /minSjameel Murcia [employer]ER [employer] T[employer]ER Work Phone: [facility] ServicesCgstdidgyk52-03-2215 08:25-1512KzT3% (BldA) [Mass fraction]97 %Debbi Murcia [employer]ER Work Phone: [phone] ServicesErvkbpovsc08-00-7237 08:25-0500Systolic blood hadmezzx638 mm[Hg]Debbi Murcia [employer]ER Work Phone: [facility] ServicesBhknulepdw48-88-7075 08:33-0400Body mssrwi638.6 Lauren Tai MD Work Phone: [facility] HospitalKrzjslcfzz25-14-7638 08:33-0400Body mass index (BMI) [Ratio]25.92 kg/f9YnljtrScott Tai MD Work Phone: [facility] HospitalEotcuvsgxa16-98-6277 08:33-0400Body qgjief05.49 kgScott Tai MD Work Phone: [facility] HospitalAhzxjfmgie11-81-5781 08:33-0400Diastolic blood mm[Hg]Scott Tai MD Work Phone: [facility] HospitalHszoqgphim80-49-8129 08:33-0400Heart rate76 /min Scott Tai MD Work Phone: [facility] HospitalOxiibocllm69-61-1591 08:33-5809OeY5% (BldA) [Mass fraction]96 %Scott Tai MD Work Phone: [facility] HospitalMrywoekwaf17-58-9905 08:33-0400Systolic blood jdexcpih518 mm[Hg]Scott Tai MD Work Phone: [facility] HospitalZkxixsipoy20-55-5172 15:13-0500Body ypklzo289.6 Lauren Tai MD Work Phone: [facility] HospitalQcphllslyj68-21-2633 15:13-0500Body mass index (BMI) [Ratio]26.61 kg/j9VlduecScott Tai MD Work Phone: [facility] HospitalSkhhqtmxqk52-39-0270 15:13-0500Body rhbawu83.31 kgScott Tai MD Work Phone: [facility] HospitalMyroxltdvy18-70-4324 15:13-0500Diastolic blood mm[Hg]Scott Tai MD Work Phone: [facility] HospitalRxbaiqtlpw52-58-7916 15:13-0500Heart rate72 /min Scott Tai MD Work Phone: [facility] HospitalLvvubyqepf51-66-1500 15:13-4789ZeU8% (BldA) [Mass fraction]96 %Scott Tai MD Work Phone: [facility] HospitalDsdlpficvm01-24-0491 15:13-0500Systolic blood mm[Hg]Scott Tai MD Work Phone: [facility] Encounters Encounter DateEncounter TypeCare ProviderFacilityStart: 33-23-9665cuzojwybjnFxgm C HillFacility:Ximena DHStart: 02-14-2025 End: 87-34-4793qgwprmqhycAvjx C HillFacility:Ximena DHStart: 02-14-2025 End: 73-58-7645Ltdhbpu encounter Stuart Reyes [phone]-[facility]mtytChildren[facility] Start: 01-19-2025 End: 99-98-8975ouulpvgqyfVqfkwqyh Talal SarminiFacility:FTMCStart: 01-16-2025 End: 72-36-5329Xglqsp flowsZenia Tai MD Work Phone: NOUG [place] [facility] MedinceStart: 01-16-2025 End: 28-89-3162Wbokxc Darrius Tai MD Work Phone: NOEW [place] [facility] MedinceStart: 01-16-2025 End: 05-41-9115Ipyuoc outpatient visit 15 minutesScott Tai MD Work Phone: NOKO [place] Family MedinceComment on above:Chronic systolic (congestive) heart failure (HCC) (Primary Dx); Chronic kidney disease, stage 3a ([facility]-HCC); 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 ; Benign essential hypertensionStart: 01-16-2025 End: 96-70-9241pshsxlpsioPPAGYG B BERRYNot AvailableStart: 12-12-2024 End: 89-15-0916Xxeqnu outpatient visit 25 minutesJoanna KUMAR Work Phone: NOND [place] Family MedinceComment on above:Chronic systolic (congestive) heart failure (HCC) (Primary Dx); Dizziness; Erectile dysfunction, unspecified erectile dysfunction type; Right inguinal painStart: 12-12-2024 End: 34-04-9869qrxwqftjmbCTGNR Oc OLVERANot AvailableStart: 12-01-2024 End: 82-81-3622tpqqmpmnkjGmrrytqu Talal SarminiFacility:FTMCStart: 10-05-2024 End: 02-14-7283Xpupjthwk Result EncounterGeneric External Data ProviderNOMS External Department UnsolicitedStart: 10-05-2024 End: 62-72-6937Yeunsntzh Result EncounterGeneric External Data ProviderNOMS External Department UnsolicitedStart: 09-30-2024 End: 29-22-2412fffrmuzpuqAiligcuy Talal SarminiFacility:Ximena DHStart: 09-30-2024 End: 14-06-5935Xiulqdb encounter procedureMuhammad Talal Sarmini [phone]-FwgpvOhiohealth [facility] Start: 89-61-0350fxrsfwthrmVpjajpk Mouchli Facility:Ximena DHStart: 09-05-2024 End: 28-38-5693Nxmejgbec Result EncounterGeneric External Data ProviderNOMS External Department UnsolicitedStart: 09-05-2024 End: 01-64-2952Qfdjxzanm Result EncounterGeneric External Data ProviderNOMS External Department UnsolicitedStart: 09-05-2024 End: 32-36-4171ciyemcwlmnUIQHHP [facility] Start: 08-31-2024 End: 60-98-9111Edaggixkaj and management of inpatientNicole Ojeda Facility:FTMCStart: 08-31-2024 End: 01-65-6855Xvlduwppkg and management of inpatientNicole [facility] Start: 05-04-2024 End: 45-63-2755Uiwshabautista Murcia [employer]ER PR[employer]ENDER Work Phone: [facility]OM[facility] CI FMStart: 05-04-2024 End: 81-12-3629Sswiguperry Murcia NP Work Phone: [facility]OM[facility] CI FMStart: 05-04-2024 End: 28-42-0552Avwwm of hemosiderin, quantDebbi Murcia [employer]ER PR[employer] TENDER Work Phone: [facility] Work Phone: Start: 05-04-2024 End: 90-20-2509Ebjekvf encounter procedureSjameel Murcia [employer]ER PR[employer] TENDER Work Phone: noms CI FMComment on above:Routine general medical examination at health care facility (Primary Dx); Other chronic pancreatitis (CMS/HCC); Chronic systolic (congestive) heart failure (CMS/HCC); Unspecified systolic (congestive) heart failure (CMS/HCC); Chronic kidney disease, stage 3a (HCC) (CMS/HCC); Carpal tunnel syndrome of right wrist; 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 (CMS/HCC); Atrial enlargement, [...] hearing loss, bilateral; Nuclear sclerosis of both eyesStart: 05-04-2024 End: 63-79-9184gpfronstanGMHIAE M SHIVELYNot AvailableStart: 03-30-2024 End: 09-43-2256Srcpakrms Result EncounterGeneric External Data ProviderNOMS External Department UnsolicitedStart: 03-30-2024 End: 01-44-1283Fyesvfend Result EncounterGeneric External Data ProviderNOMS External Department UnsolicitedStart: 03-22-2024 End: 07-57-6629qlrugwchttQAKFAVD [facility] Start: 03-09-2024 End: 11-11-0228Jpgkznmkh Result EncounterGeneric External Data ProviderNOMS External Department UnsolicitedStart: 03-09-2024 End: 59-08-7007Sghsccska Result EncounterGeneric External Data ProviderNOMS External Department UnsolicitedStart: 01-13-2024 End: 39-07-4970Gjxhks Darrius Tai MD Work Phone: NOM[facility] CI FMStart: 01-13-2024 End: 77-32-5077Scsfhv Darrius Tai MD Work Phone: NOUB CI FMStart: 01-13-2024 End: 85-95-7616Luhhd of hemosiderin, quantScott Tai MD Work Phone: [facility] Work Phone: Start: 01-13-2024 End: 67-96-0038Oqwcrdie preventive med est patient 65yrs& olderScott Tai MD Work Phone: noms CI FMComment on above:Routine general medical examination at health care facility (Primary Dx); ACP (advance care planning); 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 (CMS/HCC); Atrial enlargement, bilateral; Benign essential hypertension (CMS/HCC); Chronic systolic CHF (congestive heart failure), NYHA class 2 (CMS/HCC); Ischemic cardiomyopathy (CMS/HCC); Chronic recurrent pancreatitis (CMS/HCC); Diverticulosis of colon; Pancreatic insufficiency (CMS/HCC); Benign prostatic hyperplasia with urinary frequency; Stage 3a chronic kidney disease (HCC) (CMS/HCC); Mixed hyperlipidemia (CMS/HCC); Intermediate stage nonexudative age-related macular degeneration of both eyes Start: 05-27-2023 End: 80-29-6565Vfahtdbwrbbb care manage srvc 14 day dischargeDleandro Tai MD Work Phone: [facility] CI FMComment on above:Benign essential hypertension (CMS/HCC) (Primary Dx); Chronic systolic CHF (congestive heart failure), NYHA class 2 (CMS/HCC); 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 Other Start: 72-85-2040Tnnruohng encounterLawrence Luis [facility]astroenterologyStart: 12-19-2021 End: 15-17-6382nsrrusutvaWygwcbch Luis Other [facility] Other Start: 30-14-7812Lgtprctjp encounterLawrence Luis [facility] GastroenterologyStart: 07-26-2021 End: 13-95-7974hgyocmmdemPF PRAVEEN MEADOWSFacility:H1Dtszt: 05-06-2021 End: 69-71-6170gzuhhobwmiIJ SCOTT TAIFacility:E1Wqero: 01-06-2021 End: 56-82-0092whsznsanzeXD JASKARAN CARRERAFacility:L3Axdfx: 07-01-2020 End: 21-90-6959Rvskksg encounter procedureOMAR AL-HOURANIFacility:[facility]tart: 06-28-2018 End: 52-34-0379Xihjpjk encounter procedureDEFAULT PHYSICIANFacility:[facility] Procedures DateProcedureProcedure DetailPerforming ClinicianStart: 01-19-2025 EsophagogastroduodenoscopyAgustina Eric Comment on above:healed ulcer, mild gastriits, small HH Start: 59-71-5338WznqrkppcakebdvxixfwhrwfbbBlme Eric Start: 21-93-6125WVQ BASIC METABOLIC PANELGeneric External Data ProviderStart: 31-50-0677GDE CBC WITH AUTO DIFFGeneric External Data ProviderStart: 37-91-9839DwlvlomobmhvixhwzgpcbsyacxOzmxldum Cindy Start: 06-38-5893CMC BASIC METABOLIC PANELGeneric External Data ProviderStart: 37-59-5987GI ECHO DOPPLER COMPLETEGeneric External Data ProviderStart: 71-21-3970Onzqjpa of coronary artery bypass graftingHistory of coronary artery bypass graftScott Tai MD Work Phone: Start: 67-00-0430OGLSDORNISN OF CARDIAC TOTAL ACTIVITY, EXTERNAL APPROACHSAMER J KHOURIStart: 02-96-1139GLOVOPUVSGPLLIT OF RIGHT AND LEFT HEART, TRANSESOPHAGEALSAMER J KHOURIHistory of coronary artery bypass graftingHistory of coronary artery bypass graftSjameel Murcia NP Work Phone: Plan of Treatment DateCare ActivityDetailAuthorStart: 07-17-2025 End: 25-86-3980Celfmph encounter uqpmudrkj81/30/2026 8:30 AM EDT Office Visit [facility] [place] [facility] [address] [place] [address] Scott Tai MD [address] [facility] [address] [place] [address] NOMJuan [place] [facility] HospitalnceStart: 05-04-2025 Medicare Annual Wellness (AWV)Medicare Annual Wellness (AWV)[facility] Start: 05-04-2025 End: 74-09-4123Zrwbdmq encounter procedureNOMS FMStart: 01-16-2025 End: 48-87-2056Zivdvgb encounter procedureNOMS [place] [facility] HospitalnceComment on above:ArrivedStart: 09-25-2025Medicare Annual Wellness (AWV)Medicare Annual Wellness (AWV)NOM[facility] HealthcareStart: 05-04-2024 End: 61-16-6142Ogcfxjmw specific Ag [Mass/volume] in Serum or PlasmaPSA Lab Routine Elevated PSA Expected: 05/04/2024 (Approximate), Expires: 05/04/2025[facility] Work Phone: Comment on above:Expected: 05/04/2024 (Approximate), Expires: 05/04/2025Start: 05-04-2024 End: 29-90-4854Pwzaovf encounter procedureNOMS CI FMComment on above:Arrived Start: 01-13-2024 End: 97-64-7759Jswbwznnzumvk metabolic 2000 panel - Serum or PlasmaComprehensive metabolic panel Lab Routine Atherosclerosis of habematolel coronary artery of habematolel heartwithout angina pectoris ([facility]/HCC) Stage 3a chronic kidney disease (HCC) ([facility]/HCC) Expected: 01/13/2024 (Approximate), Expires: 01/12/2025[facility] Comment on above:Expected: 01/13/2024 (Approximate), Expires: 01/12/2025Start: 01-13-2024 End: 38-36-5367Mcjfn 1996 panel - Serum or PlasmaLipid panel Lab Routine Atherosclerosis of habematolel coronary artery of habematolel heart without angina pec toris ([facility]/HCC) Mixed hyperlipidemia ([facility]/HCC) Expected: 01/13/2024 (Approximate), Expires: 01/12/2025NOMS HealthcareComment on above:Expected: 01/13/2024 (Approximate), Expires: 01/12/2025Start: 01-13-2024 End: 46-58-9949Wdhcgcg encounter oeplcxzzi35/25/2024 8:30 AM EDT Office Visit [facility] [address] [facility] [address] [place] [address] Scott Tai MD [address] [facility] [address] [place] [address] ArrivedNOMS CI FMComment on above:ArrivedStart: 01-09-2024 Medicare Annual Wellness (AWV)Medicare Annual Wellness (AWV)[facility] Start: 09-16-2023 End: 01-06-5056Euqildz encounter fkksxqboo78/29/2024 8:30 AM EDT Office Visit [facility] [address] [facility] [address] [place] [address] Scott Tai MD [address] 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 [facility] Digestive Pcdadm27-55-4821 SARS-CoV-2 (COVID-19) mRNA BNT-162b2 [facility]anny [place] [phone]-VrphsSt. [facility] Dig[facility]ive Hagszv18-37-7367 zoster vaccine recombinantScott Tai MD Work Phone: [facility] ServicesHgflxjunfj41-90-2661vqnpoth toxoid, reduced diphtheria toxoid, and acellular pertussis vaccine, adsorbedScott Tai MD Work Phone: [facility] ServicesEstomppxou31-19-3420lnhgdh vaccine, liveDleandro Tai MD Work Phone: [facility] Payers DatePayer CategoryPayerPolicy [id number] [id number] 2018Medicare (Managed Care)[employer] Member Subscriber Plan / Payer (Effective 2017-Present) Name: Skip Cabello Anny Relation to Subscriber: Self Name: Destiney Skip Mccormick Payer ID: Not on file Group ID: [id number] Type: Not on file Address: [facility] [id number] [place] [id number] [id number] 2.0.1.987197.3.57[id number] 2.0.1.046961.3.57[id number] 2.840.1.215431.3.57[id number] 2.16840.1.682676.3.57[id number] 2.16840.1.813349.3.579.2.[id number] 2.16840.1.613088.3.579.2.28724-53-9779Uufmsna46941258 2.16840.1.426534.3.579.[id number] 2.16840.1.136081.3.57[id number] 2.16.840.1.216271.3.57[id number] 2.16.840.1.523868.3.57[id number] 2.16.840.1.018435.3.57[id number] 2.16.840.1.813783.3.579.[id number] 2.16.840.1.858342.3.579.2.[id number] 2.16.840.1.155711.3.57[id number] 2.16.840.1.750938.3.579.[id number] 2.16.840.1.034790.3.57[id number] 2.16.840.1.951888.3.579.2.7[id number] 2.16.840.1.612390.3.57[id number] 2.16.840.1.434663.3.579.[id number] 2.16.840.1.910577.3.57[id number] 2.16.840.1.504342.3.57[id number] 2.16.840.1.823689.3.57[id number] 2.16.840.1.826755.3.579.[id number] 2.16.840.1.247852.3.579.2.727 Social History DateTypeDetailFacilityStart: 12-02-2022 End: 66-39-6340Sto Assigned At [facility] Other Start: 10-23-2022 End: 82-68-2153Hxglzav smoking status NHISNever smoked tobaccoNOMS Healthcare Start: 80-44-4469Pxnxpzs use and exposureSmokeless tobacco non-userNOMS HealthcareStart: 03-16-2023 End: 05-91-9238Dboantp intakeEx-drinker (finding)NOM[facility] HealthcareStart: 12-02-2022 End: 16-94-4003Vrslgvy of Social functionNOMS HealthcareWithin the last year, have you been afraid of your partner or ex-partner?NoNOMS HealthcareStart: 22-56-9747Mfwdjpfda of Communication with Friends and FamilyNot on fileNOMS HealthcareAre you now , , , , never or living with a partner?WidowedNOMS HealthcareHow often to you have a drink containing alcohol?NeverNOMS HealthcareDo you feel stress - tense, restless, nervous, or anxious, or unable to sleep at night because yourmind is troubled all the time - these days [OSQ]Not at allNOMS Healthcare(I/We) worried whether (my/our) food would run out before (I/we) got money to buy more.Never trueNOMS HealthcareStart: 20-21-7164Jrwxiue CommentCaffeine intake : 1-2 cups per day coffeeNOMS HealthcareStart: 00-01-2411Iuj Assigned At Critical Access HospitalNot on [facility] HealthcareTobacco smoking statusTogus Va Medical Center Start: 34-41-5049JncAuov (finding)[facility] Functional Status WuvqWhjvsaspmbWsjyftRynzxrmj99-61-6988Utzhpod Health Questionnaire 2 item (PHQ- 2) [Reported][facility] ServicesEkobgwfhpr95-29-6306Xbqxiue Health Questionnaire 2 item (PHQ- 2) [Reported][facility] ServicesWgzhjknrtp01-79-9608Osnstbkubv StatusAdena Health System01-15-2025Patient Health Questionnaire 2 item (PHQ-2) [Reported][facility] Clinical Notes 04-22-2022 to 01-19-2025 Note Date & RqouPrebLmsrrdvx97-98-0304 NoteProgress Note-Physician Patient: SKIP CABELLO Age: 84 years Sex: Male : 1940 Associated Diagnoses: None Author: Argentina Saavedra CRNA Postoperative Information Postoperative disposition: Postoperative disposition: Home. Optimetrix number: Optimetrix number [id number]. Anesthetic utilized: General. Health Status Allergies: Allergic Reactions (Selected) No Known Allergies Physical Examination Vital Signs 01/19/2025 10:35 EDT Respiratory Rate Monitored 18 br/min 01/19/2025 10:35 EDT Heart Rate Monitored 64 bpm 01/19/2025 10:35 EDT Systolic Blood Pressure 131 mmHg Diastolic Blood Pressure 71 mmHg 01/19/2025 10:35 EDT SpO2 98 % 01/19/2025 10:30 EDT Respiratory Rate Monitored 17 br/min 01/19/2025 10:30 EDT SpO2 100 % 01/19/2025 10:30 EDT Heart Rate Monitored 67 bpm 01/19/2025 10:30 EDT Systolic Blood Pressure 122 mmHg Diastolic Blood Pressure 62 mmHg 01/19/2025 10:25 EDT SpO2 100 % 01/19/2025 10:25 EDT Respiratory Rate Monitored 16 br/min 01/19/2025 10:25 EDT Heart Rate Monitored 61 bpm 01/19/2025 10:25 EDT Systolic Blood Pressure 119 mmHg Diastolic Blood Pressure 61 mmHg 01/19/2025 10:20 EDT Heart Rate Monitored 63 bpm Respiratory Rate Monitored 16 br/min 01/19/2025 10:20 EDT SpO2 99 % 01/19/2025 10:20 EDT Systolic Blood Pressure 101 mmHg Diastolic Blood Pressure 62 mmHg 01/19/2025 10:16 EDT Heart Rate Monitored 65 bpm 01/19/2025 10:16 EDT Systolic Blood Pressure 99 mmHg Diastolic Blood Pressure 57 mmHg LOW 01/19/2025 10:16 EDT Temperature Temporal Artery 36.5 DegC Respiratory Rate 20 br/min SpO2 98 % 01/19/2025 10:12 EDT Systolic Blood Pressure 106 mmHg mmHg Diastolic Blood Pressure 60 mmHg mmHg 01/19/2025 10:10 EDT Heart Rate Monitored 69 bpm bpm Respiratory Rate 12 br/min br/min SpO2 100 % % 01/19/2025 10:09 EDT Systolic Blood Pressure 113 mmHg mmHg Diastolic Blood Pressure 67 mmHg mmHg 01/19/2025 10:06 EDT Systolic Blood Pressure 150 mmHg mmHg Diastolic Blood Pressure 70 mmHg mmHg 01/19/2025 10:05 EDT Heart Rate Monitored 71 bpm bpm Respiratory Rate 17 br/min br/min SpO2 97 % % 01/19/2025 9:05 EDT Systolic Blood Pressure 143 mmHg HI Diastolic Blood Pressure 63 mmHg 01/19/2025 9:05 EDT Temperature Temporal Artery 36.2 DegC LOW Heart Rate Monitored 75 bpm Respiratory Rate 16 br/min Blood Pressure Location Left arm SpO2 100 % Pain Assessment: Controlled, Pain Assessment 01/19/2025 10:35 EDT Pain Symptoms Self Report No, able to self report . General: Awake, Alert, Appropriate. Respiratory: Adequate air exchange, Non-labored. Cardiovascular: Stable, Normal peripheral perfusion. Neurological: Neurologic exam at baseline. No changes.. Assessment Anesthetic outcome No anesthetic complications noted. No nausea/vomiting. Review / Management Condition: Stable. Plan Transfer/Discharge: Transfer/Discharge Discharge when meets criteria ( From PACU to Ambulatory Surgery Unit, and To home ).[facility] HospitalComment on above:Result Comment: Electronically Signed By: Argentina Saavedra CRNA\.br\Date and Time Signed: 01/19/25 12:26 [id number] NoteProgress Note-Physician Patient: SKIP CABELLO Age: 84 years Sex: Male : 1940 Associated Diagnoses: None Author: Argentina Saavedra CRNA Preoperative Information Anesthesia history: Patient history: No [...] Documented Current medications: (Selected) Inpatient Medications Ordered Sodium Chloride 0.9% IV Elena 1000 mL 1,000 mL: 1,000 mL, IV, 20 mL/hr, Routine, Start date 01/19/25 6:46:00 EDT, 50 hour(s), Total volume (mL): 1,000 Prescriptions Prescribed Carafate 1 gram Tab: 1 gm = 1 tab(s), Oral, QID, X 14 day(s), # 56 tab(s), Refills(s) 3, Pharmacy: [facility]/pharmacy #[id number], 162, cm, 12/01/24 8:30:00 EDT, Height/Length Dosing, 67.2, kg, 12/01/24 8:30:00 EDT, Weight Dosing Hepatic panel, CBC: Hepatic panel, CBC, Have labs on 09/05, Print Requisition, Supply Pantoprazole [address] Tab: 40 mg = 1 tab(s), Oral, BIDAC, X 90 day(s), # 180 tab(s), Refills(s) 3, Pharmacy: [facility]/pharmacy #[id number], 162, cm, 12/01/24 8:30:00 EDT, Height/Length Dosing, 67.2, kg, 12/01/24 8:30:00 EDT, Weight Dosing Stool Hpylori antigen: Stool Hpylori antigen, Please send stool sample cup and depressor for collection and to drop off at hospital, Print Requisition, Supply aspirin 81 mg Oral EC Tab: 81 mg = 1 tab(s), Oral, Daily, Please make sure that aspirin is always enteric coated. May resume on 09/03 if no bleeding, # 30 tab(s), Refills(s) 0 Documented Medications Documented atorvastatin 40 mg Tab: 80 mg = 2 tab(s), TAKE 1 TABLET BY MOUTH EVERYDAY AT BEDTIME, High cholesterol carvedilol 6.25 mg Tab: 6.25 mg = 1 tab(s), BID, TAKE 1 TABLET BY MOUTH EVERY MORNING AND EVENING WITH MEALS isosorbide mononitrate 30 mg ER Tab: TAKE 1 TABLET BY MOUTH EVERY DAY, High blood pressure lisinopril 20 mg Tab: 20 mg = 1 tab(s), Oral, Daily, Hold for systolic blood pressure 110 or less magnesium oxide 400 mg Tab: 800 mg = 2 tab(s), Oral, Refills(s) 0, Prophylaxis, Home Medications (10) Active aspirin 81 mg Oral EC Tab 81 mg = 1 tab(s), Oral, Daily atorvastatin 40 mg Tab 80 mg = 2 tab(s) Carafate 1 gram Tab 1 gm = 1 tab(s), Oral, QID carvedilol 6.25 mg Tab 6.25 mg = 1 tab(s), BID Hepatic panel, CBC 0 isosorbide mononitrate 30 mg ER Tab lisinopril 20 mg Tab 20 mg = 1 tab(s), Oral, Daily magnesium oxide 400 mg Tab 800 mg = 2 tab(s), Oral Pantoprazole [address] Tab 40 mg = 1 tab(s), Oral, BIDAC Stool Hpylori antigen 0 , Medications (1) Active Scheduled: (0) Continuous: (1) Sodium Chloride 0.9% 1,000 mL 1,000 mL, IV, 20 mL/hr PRN: (0) Problem list: All Problems Acute nephropathy / SNOMED CT 55153791 / Confirmed Acute pharyngitis / SNOMED CT 606651977 / Confirmed Acute posthemorrhagic anemia / SNOMED CT 537717322 / Confirmed Anemia / SNOMED CT 345483647 / Confirmed Angina, class III / SNOMED CT 675229493 / Confirmed Aortic valve stenosis / SNOMED CT 506616038 / Confirmed Aortocoronary bypass graft present / SNOMED CT 1302471230 / Confirmed Attention deficit hyperactivity disorder / SNOMED CT 1824444580 / Confirmed Basal cell carcinoma of back / SNOMED CT 3591147104 / Confirmed Benign prostatic hyperplasia / SNOMED CT 668332886 / Confirmed Bilateral hearing loss / SNOMED CT 437303091 / Confirmed Black tarry stools / SNOMED CT 70384233 / Confirmed Calculus of gallbladder with cholecystitis / SNOMED CT 45771352 / Confirmed Candidal paronychia / SNOMED CT 451410044 / Confirmed Cardiac arrhythmia. / SNOMED CT 0014520587 / Confirmed Cardiomyopathy / SNOMED CT 522732922 / Confirmed Carpal tunnel syndrome of right wrist / SNOMED CT 823276625145081 / Confirmed Cervical spondylosis without myelopathy / SNOMED CT 640414557 / Confirmed Chronic kidney disease due to type 2 diabetes mellitus / SNOMED CT 6383121021 / Confirmed Chronic kidney disease stage 3A. / SNOMED CT 0957194796 / Confirmed Chronic kidney disease stage 3B. / SNOMED CT 2925018957 / Confirmed Chronic obstructive pulmonary disease / SNOMED CT 466932243 / Confirmed Chronic systolic heart failure / SNOMED CT 1079070775 / Confirmed Congestion of nasal sinus / SNOMED CT 062726221 / Confirmed Contact dermatitis / SNOMED CT 53217084 / Confirmed Coronary arteriosclerosis / SNOMED CT 61251354 / Confirmed Coronary artery disease / SNOMED CT 35500348 / Confirmed Diverticulosis of colon / SNOMED CT 1585443231 / Confirmed Dyskinesia / SNOMED CT 04196649 / Confirmed Dyspnea / SNOMED CT 568880208 / Confirmed Ex-cigarette smoker / SNOMED CT 117081502 / Confirmed Fibrosis of lung / (more content not included)...[facility] Comment on above:Result Comment: Electronically Signed By: Argentina Saavedra CRNA.br\Date and Time Signed: 01/19/25 10:33 [id number] NotePatient Education - Text Colonoscopy Care After Surgery Please read the instructions outlined below and refer to this sheet in the next few weeks. These discharge instructions provide you with general information on caring for yourself after you leave thespital. Your doctor may also give you specific instructions. While your treatment has been planned according to the most current medical practices available, unavoidable complications occasionally occur. If you have any problems or questions after discharge, please call your doctor. ACTIVITY You may resume your regular activity, but move at a slower pace for the next 24 hours. Take frequent rest periods for the next 24 hours. Walking will help get rid of the air and reduce the bloated feeling in your abdomen (belly). No driving for 24 hours (because of the anesthesia (medicine) used during the test). You may shower. Do not sign any important legal documents or operate any machinery for 24 hours (because of the anesthesia used during the test). NUTRITION Drink plenty of fluids. You may resume your normal diet as instructed by your doctor. Begin with a light meal and progress to your normal diet. Heavy or fried foods are harder to digestand may make you feel nauseated (sick to your stomach). Avoid alcoholic beverages for 24 hours or as instructed. MEDICATIONS You may resume your normal medications unless your doctor tells you otherwise. WHAT YOU CAN EXPECT TODAY Some feelings of bloating in the abdomen. Passage of more gas than usual. Spotting of blood in your stool or on the toilet paper. FOLLOW-UP Your doctor will discuss the results of your test with you. SEEK IMMEDIATE MEDICAL ATTENTION IF: There is more than a spotting of blood in your stool. There is abdominal distention (your abdomen is swollen). There is vomiting. You have a temperature over 101.5 F. There is abdominal pain or discomfort that is severe or gets worse throughout the day. Gastroenterology Hiatal Hernia A hiatal hernia occurs when [...] condition is more likely to develop in: ??? Older people. Age is a major risk factor for a hiatal hernia, especially if you are over the age of 50. ??? women. ??? People who are overweight. ??? People who have frequent constipation. What are the signs or symptoms? Symptoms of this condition usually develop in the form of GERD symptoms. Symptoms include: ??? Heartburn. ??? Upset stomach (indigestion). ??? Trouble swallowing. ??? Coughing or wheezing. Wheezing is making high-pitched whistling sounds when you breathe. ??? Sore throat. ??? Chest pain. ??? Nausea and vomiting. How is this diagnosed? This condition may be diagnosed during testing for GERD. Tests that may be done include: ??? X-rays of your stomach or chest. ??? An upper gastrointestinal (GI) series. This is an X-ray exam of your GI tract that is taken after you swallow a chalky liquid that shows up clearly on the X-ray. ??? Endoscopy. This is a procedure to look into your stomach using a thin, flexible tube that has atiny camera and light on the end of it. How is this treated? This condition may be treated by: ??? Dietary and lifestyle changes to help reduce GERD symptoms. ??? Medicines. These may include: ? Eqbb-uqm-yqbpbai antacids. ? Medicines that make your stomach empty more quickly. ? Medicines that block the production of stomach acid (H2 blockers). ? Stronger medicines to reduce stomach acid (proton pump inhibitors). ??? Surgery to repair the hernia, if other treatments are not helping. If you have no symptoms, you may not need treatment. Follow these instructions at home: Lifestyle and activity ??? Do not use any products that contain nicotine or tobacco. These products include cigarettes, chewing tobacco, and vaping devices, such as e-cigarettes. If you need help quitting, ask your health care provider. ??? Try to achieve (more content not included)...[facility] 01-19-2025 NoteEndoscopic Procedure Report - Other Patient: SKIP CABELLO Age: 84 years Sex: Male : 1940 Associated Diagnoses: None Author: Jazmin White MD Pre-Procedure Procedure Date 01/19/2025 10:11:00 . Procedure Type: Esophagogastroduodenoscopy. Procedure provider Performed by Jazmin White MD. Current history and physical Documented on chart. Informed Consent After discussing the rationale, risks and benefits, and alternatives to this procedure, the patient provided signed consent for the procedure. Pre-procedure diagnosis: GERD. ASA Classification: Class II. . Monitoring: See anesthesia record. . Procedure [...] excellent. The patient tolerated the procedure well. Findings 1. Esophageal landmarks identified, small hiatal hernia, no esophagitis 2. Previously seen gastric ulcers healed up, minimal nonspecific gastritis in the antrum of the stomach, otherwise normal examined stomach 3. Normal examined duodenum Images Procedure images: [id number]_hd_video_2024__T09__[id number].jpg Rec1_hd_video____16_146.jpg Rec1_hd_video_2024__T__12_334.jpg Rec1_hd_video_2024__09__07_[id number].jpg Rec1_hd_video_2024__T09_24_[id number].jpg Rec1_hd_video__09_24_[id number]_153.jpg Rec1_hd_video_2024__09__42_120.jpg Rec1_hd_video__09__36_[id number].jpg Rec1_hd_video_2024__T09__13_[id number].jpg Rec1_hd_video_T09_23_[id number].jpg . Post-Procedure Complications: none. Estimated blood loss: none. Specimens: none. Devices/ implants: none left in place. Impression and Plan 1. Esophageal landmarks identified, small hiatal hernia, no esophagitis 2. Previously seen gastric ulcers healed up, minimal nonspecific gastritis in the antrum of the stomach, otherwise normal examined stomach 3. Normal examined duodenum Recommendations: -Resume previous diet -Resume home medications Follow[facility] Result Comment: Electronically Signed By: Cindy KABA, Jazmin Colby\.br\Date and Time Signed: 01/19/25 10:12 EDTOther Comment: Missing Attachment - attachment storage system not supported [id number] Can be viewed in source system Missing Attachment - attachment storage system not supported [id number] Can be viewed in source systemMissing Attachment - attachment storage system not supported [id number] Can be viewed in source systemMissing Attachment - attachment storage system not supported [id number] Can be viewed in source systemMissing Attachment - attachment storage system not supported [id number] Can be viewed in source systemMissing Attachment - attachment storage system not supported [id number] Can be viewed in source systemMissing Attachment - attachment storage system not supported [id number] Can be viewed in source systemMissing Attachment - attachment storage system not supported [id number] Can be viewed in source system Missing Attachment - attachment storage system not supported [id number] Can be viewed in source systemMissing Attachment - attachment storage system not supported [id number] Can be viewed in source [id number] NoteHistory and Physical Patient: SKIP CABELLO Age: 84 years Sex: Male : 1940 Associated Diagnoses: None Author: Cindy KABA, Jazmin Colby Preoperative Information Indication for procedure and diagnosis: PUD Chief Complaint as above Review of Systems All systems reviewed, negative except as mentioned above Health Status Current medications: (Selected) Inpatient Medications Ordered Sodium Chloride 0.9% IV Elena 1000 mL 1,000 mL: 1,000 mL, IV, 20 mL/hr, Routine, Start date 01/19/25 6:46:00 EDT, 50 hour(s), Total volume (mL): 1,000 Prescriptions Prescribed Carafate 1 gram Tab: 1 gm = 1 tab(s), Oral, QID, X 14 day(s), # 56 tab(s), Refills(s) 3, Pharmacy: [facility]/pharmacy #[id number], 162, cm, 12/01/24 8:30:00 EDT, Height/Length Dosing, 67.2, kg, 12/01/24 8:30:00 EDT, Weight Dosing Hepatic panel, CBC: Hepatic panel, CBC, Have labs on 09/05, Print Requisition, Supply Pantoprazole [address] Tab: 40 mg = 1 tab(s), Oral, BIDAC, X 90 day(s), # 180 tab(s), Refills(s) 3, Pharmacy: [facility]/pharmacy #[id number], 162, cm, 12/01/24 8:30:00 EDT, Height/Length Dosing, 67.2, kg, 12/01/24 8:30:00 EDT, Weight Dosing Stool Hpylori antigen: Stool Hpylori antigen, Please send stool sample cup and depressor for collection and to drop off at hospital, Print Requisition, Supply aspirin 81 mg Oral EC Tab: 81 mg = 1 tab(s), Oral, Daily, Please make sure that aspirin is always enteric coated. May resume on 09/03 if no bleeding, # 30 tab(s), Refills(s) 0 Documented Medications Documented atorvastatin 40 mg Tab: 80 mg = 2 tab(s), TAKE 1 TABLET BY MOUTH EVERYDAY AT BEDTIME, High cholesterol carvedilol 6.25 mg Tab: 6.25 mg = 1 tab(s), BID, TAKE 1 TABLET BY MOUTH EVERY MORNING AND EVENING WITH MEALS isosorbide mononitrate 30 mg ER Tab: TAKE 1 TABLET BY MOUTH EVERY DAY, High blood pressure lisinopril 20 mg Tab: 20 mg = 1 tab(s), Oral, Daily, Hold for systolic blood pressure 110 or less magnesium oxide 400 mg Tab: 800 mg = 2 tab(s), Oral, Refills(s) 0, Prophylaxis, Home Medications (10) Active aspirin 81 mg Oral EC Tab 81 mg = 1 tab(s), Oral, Daily atorvastatin 40 mg Tab 80 mg = 2 tab(s) Carafate 1 gram Tab 1 gm = 1 tab(s), Oral, QID carvedilol 6.25 mg Tab 6.25 mg = 1 tab(s), BID Hepatic panel, CBC 0 isosorbide mononitrate 30 mg ER Tab lisinopril 20 mg Tab 20 mg = 1 tab(s), Oral, Daily magnesium oxide 400 mg Tab 800 mg = 2 tab(s), Oral Pantoprazole [address] Tab 40 mg = 1 tab(s), Oral, BIDAC Stool Hpylori antigen 0 Problem list: All Problems Anemia / SNOMED CT 337251472 / Confirmed Aortocoronary bypass graft present / SNOMED CT 6719714178 / Confirmed Aortic valve stenosis / SNOMED CT 986029926 / Confirmed Angina, class III / SNOMED CT 096375260 / Confirmed Acute posthemorrhagic anemia / SNOMED CT 774252693 / Confirmed Acute pharyngitis / SNOMED CT 116800084 / Confirmed Acute nephropathy / SNOMED CT 17570949 / Confirmed Cardiomyopathy / SNOMED CT 684665439 / Confirmed Cardiac arrhythmia. / SNOMED CT 5935692604 / Confirmed Candidal paronychia / SNOMED CT 494702130 / Confirmed Calculus of gallbladder with cholecystitis / SNOMED CT 32886516 / Confirmed Bilateral hearing loss / SNOMED CT 693270726 / Confirmed Benign prostatic hyperplasia / SNOMED CT 221910858 / Confirmed Basal cell carcinoma of back / SNOMED CT 7542825304 / Confirmed Attention deficit hyperactivity disorder / SNOMED CT 5182221312 / Confirmed Coronary arteriosclerosis / SNOMED CT 86636192 / Confirmed Contact dermatitis / SNOMED CT 33563823 / Confirmed Congestion of nasal sinus / SNOMED CT 379881073 / Confirmed Chronic systolic heart failure / SNOMED CT 7054585001 / Confirmed Chronic kidney disease due to type 2 diabetes mellitus / SNOMED CT 2710660922 / Confirmed Chronic obstructive pulmonary disease / SNOMED CT 640408122 / Confirmed Chronic kidney disease stage 3B. / SNOMED CT 9412947563 / Confirmed Chronic kidney disease stage 3A. / SNOMED CT 8810103245 / Confirmed Cervical spondylosis without myelopathy / SNOMED CT 819831971 / Confirmed Carpal tunnel syndrome of right wrist / SNOMED CT 206095724474536 / Confirmed Generalized enlarged lymph nodes / SNOMED CT 652186745 / Confirmed Generalized anxiety disorder / SNOMED CT 40255512 / Confirmed Gastrointestinal hemorrhage / SNOMED CT 296831813 / Confirmed Gastroesophageal reflux disease without esophagitis / SNOMED CT 3389899030 / Confirmed Full thickness rotator cuff tear / SNOMED CT 280107357 / Confirmed Fibrosis of lung / SNOMED CT 81612004 / Confirmed Ex-cigarette smoker / SNOMED CT 473444994 / Confirmed Dyspnea / SNOMED CT 083725794 / Confirmed Dyskinesia / SNOMED CT 94736419 / Confirmed Diverticulosis of colon / SNOMED CT 9170884941 / Confirmed Indigestion / SNOMED CT 410317057 / Confirmed Hypoxia / SNOMED CT 0893310631 / Confirmed Hypothyroidism / SNOMED CT 46838032 / Confirmed Hyperlipidemia / SNOMED CT 47631896 / Confirmed Inflammatory dermat (more content not included)...[facility] Comment on above:Result Comment: Electronically Signed By: Cindy KABA, Jazmin Colby\.tom\Date and Time Signed: 01/19/25 10:04 [id number] History of Present illness Narrative* Scott Tai MD - 01/16/2025 8:30 AM EDT Images from the original note were not included. Subjective Patient ID: Skip Cabello is a 84 y.o. male who presents for Congestive Heart Failure and Hypertension. Hypertension Patient is here for follow-up of elevated blood pressure. Blood pressure is well controlled at home. Cardiac symptoms: none. Patient denies chest pain, claudication, dyspnea, irregular heart beat, lower extremity edema, near- syncope, palpitations, paroxysmal nocturnal dyspnea, syncope, and tachypnea. Cardiovascular risk factors: advanced age (older than 55 for men, 65 for women), hypertension, and male gender. Congestive Heart Failure Patient presents for re-evaluation of congestive heart failure. Patient's current complaints are none. He denies chest pain, claudication, exertional chest pressure/discomfort, irregular heart beat, lower extremity edema, near- syncope, orthopnea, palpitations, paroxysmal nocturnal dyspnea, syncope,and tachypnea. He states he is compliant all of the time with his medications. ] Congestive Heart Failure Pertinent negatives include no chest pain, fatigue, palpitations or shortness of breath. Hypertension Pertinent negatives include no chest pain, palpitations or shortness of breath. Over the past 2 weeks, how often have you been bothered by any of the following problems? Little interest or pleasure in doing things: Not at all Feeling down, depressed, or hopeless: Not at all Patient Health Questionnaire-2 Score: 0 Current Outpatient Medications on File Prior to Visit Medication Sig Dispense Refill aspirin 81 MG EC tablet take 1 tablet (81MG) by oral route every day Oral atorvastatin (Lipitor) 40 MG tablet TAKE 1 TABLET BY MOUTH EVERYDAY AT BEDTIME 100 tablet 3 carvedilol (Coreg) 6.25 MG tablet TAKE 1 TABLET BY MOUTH EVERY MORNING AND EVENING WITH MEALS 180 tablet 1 dapagliflozin (Farxiga) 10 MG Take 10 mg by mouth Daily isosorbide mononitrate ER (Imdur) 30 MG 24 hr tablet TAKE 1 TABLET BY MOUTH EVERY DAY 100 tablet 3 lisinopril 20 MG tablet Take 20 mg by mouth Daily Magnesium 400 MG capsule Take 1 capsule by mouth 1 (one) time each day. Multiple Vitamins-Minerals (PRESERVISION AREDS 2 PO) Take 1 tablet by mouth in the morning. nitroglycerin (Nitrostat) 0.4 MG SL tablet pantoprazole (ProtoNix) 40 MG EC tablet Take 40 mg by mouth in the morning. Take before meals. sildenafil (Viagra) 100 MG tablet Take 1 tablet (100 mg) by mouth Daily as needed for erectile dysfunction 10 tablet 0 [DISCONTINUED] clopidogrel (Plavix) 75 MG tablet Take 75 mg by mouth Daily [DISCONTINUED] meclizine (Antivert) 25 MG tablet Take 1 tablet (25 mg) by mouth 3 (three) times a day as needed for dizziness [DISCONTINUED] spironolactone (Aldactone) 25 MG tablet Take 1 tablet (25 mg) by mouth in the morning. No current [...] carcinoma Brachial neuralgia CAD (coronary artery disease) Chest pain 11/20/18-11/21/18, 03/20/17 Chest pain 07/01/2020 Electrolyte Imbalance, NSTEMI Coronary atherosclerosis of habematolel coronary artery Diverticulosis 12/2019 Heart disease History of being hospitalized 05/22/2023 Hypotension, SRINIVAS History of cholecystectomy 2003 History of echocardiogram 2020 EF 40% Hyperlipemia Hypertension 06/2014 Pancreatitis ([facility]) Past Surgical History: Procedure Laterality Date ANGIOPLASTY APPENDECTOMY 1960 CHOLECYSTECTOMY COLONOSCOPY 2019 CORONARY ARTERY BYPASS GRAFT 2009 [facility] schwann EGD 2019 EGD 12/01/2024 With Biopsies. Gastritis, Ulcers HERNIA REPAIR 2004 Visit Vitals BP 132/72 Pulse 73 Ht 5' 4 Wt 149 lb SpO2 99% BMI 25.58 kg/m Smoking Status Never BSA 1.75 m Review of Systems Constitutional: Negative for fatigue. Respiratory: Negative for shortness of breath. Cardiovascular: Negative for chest pain and palpitations. Objective Physical Exam Constitutional: General: He is [...] Diagnoses and all orders for this visit: Chronic systolic (congestive) heart failure (HCC) - No current active congestive heart failure. Dyspnea at exertion, but not at rest. No evidence of pulmonary edema. Medications unchanged. Chronic kidney disease, stage 3a (CMS-HCC) 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 - No symptoms of active ischemia Benign essential hypertension - This is a chronic medical condition that is stable since last assessment. No changes in treatmentare suggested at this time. Follow up in about 6 months (around 07/16/2025) for Wellness. documented in this encounterHeartland Behavioral Health [id number] History of Present illness Narrative* STACY Desir - 12/12/2024 9:30 AM EDT Images from the original note were not included. Subjective Patient ID: Skip Cabello is a 84 y.o. male who presents for [facility] ER follow up. Flowsheet Row Patient Outreach from 12/01/2024 in [facility] Divshot [facility] with Ruma Fernandes LPN Hospital Information ED, Hospital or Jail Facility Discharge? ED Patient has been contacted within 2 days of being seen in the ED Yes Diagnosis Vertigo Discharge Date 11/30/24 Discharged To: Home Setting Discharge Hospital [facility] Engagement Call Start Time 1235 Admission Date 11/30/24 Medications Discharge medications reviewed and reconciled from hospital? Yes Is the patient having any side effects they believe may be caused by any medication additions or changes? No Does the patient have all medications ordered at discharge? Yes Is the patient taking all medications as directed (includes completed medication regime)? Yes Appointments Does the patient have a primary care provider? Yes [12/12] Does the patient have any upcoming specialty appointments? No Self Management Patient Teaching Does the patient have access to their discharge instructions? Yes What is the patient's perception of their health status since discharge? Improving Is the patient/caregiver able to teach back the hierarchy of who to call/visit for symptoms/problems? PCP, Specialist, Home Health nurse, Urgent Care, ED, 911 Yes Wrap Up Wrap Up Additional Comments CXR, CT-head/brain, Labs. patient's workup including CT of the brain is negative. He was given oral Antivert and felt somewhat improved and then IV Valium and feels much better now. He is able to be discharged home and was ambulatory prior to discharge. The patient and his family are comfortable taking him home. Follow-up with his PCP but return to emergency department if symptoms worsen Call End Time 1242 If he has to urinate badly his bladder pops out and it does seem to hurt some. Feels like a pressure sensation. If he goes to the restroom it disappears. Points to right inguinal region. Also c/o difficulty having an erection. Has tried Viagra 50 mg and Cialis in the past without benefit. Over the past 2 weeks, how often have you been bothered by any of the following problems? Little interest or pleasure in doing things: Not at all Feeling down, depressed, or hopeless: Not at all Patient Health Questionnaire-2 Score: 0 Current Outpatient Medications on File Prior to Visit Medication Sig Dispense Refill clopidogrel (Plavix) 75 MG tablet Take 75 mg by mouth Daily dapagliflozin (Farxiga) 10 MG Take 10 mg by mouth Daily pantoprazole (ProtoNix) 40 MG EC tablet Take 40 mg by mouth in the morning. Take before meals. [DISCONTINUED] meclizine (Antivert) 25 MG tablet (Patient taking differently: Take 25 mg by mouth 3(three) times a day as needed) aspirin 81 MG EC tablet take 1 tablet (81MG) by oral route every day Oral atorvastatin (Lipitor) 40 MG tablet TAKE 1 TABLET BY MOUTH EVERYDAY AT BEDTIME 100 tablet 3 carvedilol (Coreg) 6.25 MG tablet TAKE 1 TABLET BY MOUTH EVERY MORNING AND EVENING WITH MEALS 180 tablet 1 isosorbide mononitrate ER (Imdur) 30 MG 24 hr tablet TAKE 1 TABLET BY MOUTH EVERY DAY 100 tablet 3 lisinopril 20 MG tablet Take 20 mg by mouth Daily Magnesium 400 MG capsule Take 1 capsule by mouth 1 (one) time each day. Multiple Vitamins-Minerals (PRESERVISION AREDS 2 PO) Take 1 tablet by mouth in the morning. nitroglycerin (Nitrostat) 0.4 MG SL tablet [DISCONTINUED] spironolactone (Aldactone) 25 MG tablet Take 25 mg by mouth in the morning. (Patientnot taking: Reported on 12/12/2024) [DISCONTINUED] sucralfate (Carafate) 1 g tablet Take 1 g by mouth in the morning and 1 g at noon and 1 g in the evening and 1 g before bedtime. Take before meals. (Patient not taking: Reported on 12/12/2024) No current facility-administered medications on file prior [...] carcinoma Brachial neuralgia CAD (coronary artery disease) Chest pain 11/20/18-11/21/18, 03/20/17 Chest pain 07/01/2020 Electrolyte Imbalance, NSTEMI Coronary atherosclerosis of habematolel coronary artery Diverticulosis 12/2019 Heart disease History of being hospitalized 05/22/2023 Hypotension, SRINIVAS History of cholecystectomy 2003 History of echocardiogram 2020 EF 40% Hyperlipemia Hypertension 06/2014 Pancreatitis ([facility]) Past Surgical History: Procedure Laterality Date ANGIOPLASTY APPENDECTOMY 1960 CHOLECYSTECTOMY COLONOSCOPY 2019 CORONARY ARTERY BYPASS GRAFT 2009 [facility] schwann EGD 2020 HERNIA REPAIR 2004 Visit Vitals BP 124/72 Pulse 76 Resp 16 Ht 5' 4 Wt 147 lb 12.8 oz SpO2 99% BMI 25.37 kg/m Smoking Status Never BSA 1.74 m Review of Systems Constitutional: Negative for chills, fatigue and fever. Respiratory: Negative for cough, shortness of breath and wheezing. Cardiovascular: Negative for chest pain, palpitations and leg swelling. Gastrointestinal: Negative for abdominal pain, constipation, diarrhea, nausea and vomiting. See HPI Genitourinary: Difficulty with erection Skin: Negative for rash. Neurological: Positive for dizziness. Objective Physical Exam Constitutional: General: He is not in acute distress. Appearance: Normal appearance. HENT: Head: Normocephalic and atraumatic. Eyes: General: No scleral icterus. Cardiovascular: Rate and Rhythm: Normal rate and regular rhythm. Heart sounds: No murmur heard. Pulmonary: Effort: Pulmonary effort is normal. No respiratory distress. Breath sounds: Normal breath sounds. No wheezing, rhonchi or rales. Abdominal: General: Bowel sounds are normal. Palpations: Abdomen is soft. Tenderness: There is no abdominal tenderness. Hernia: No hernia is present. Comments: Likely diastasis recti noted with abdominal strain, no inguinal hernia noted on exam. Musculoskeletal: General: No swelling. Skin: General: Skin is warm and dry. Neurological: General: No focal deficit present. Mental Status: He is alert and oriented to person, place, and time. Psychiatric: Mood and Affect: Mood normal. Behavior: Behavior normal. Assessment/Plan Diagnoses and all orders for this visit: Chronic systolic (congestive) heart failure (HCC) - spironolactone (Aldactone) 25 MG tablet; Take 1 tablet (25 mg) by mouth in the morning. Reminded pt that Cardiology does want him to take the Spironolactone and Farxiga. He was unsure if he was taking these as they were not on his medication list. Provided pt with updated medication list and let him know the indications for each medication. Dizziness - meclizine (Antivert) 25 MG tablet; Take 1 tablet (25 mg) by mouth 3 (three) times a day as neededfor dizziness He can continue the Meclizine as needed for dizziness. Reminded pt to change positions slowly. Stayhydrated. Erectile dysfunction, unspecified erectile dysfunction type - sildenafil (Viagra) 100 MG tablet; Take 1 tablet (100 mg) by mouth Daily as needed for erectile dysfunction Provided pt with the 100 mg dosage of Viagra. Reviewed potential s/e and complications for the above class of medication. This class of medication can cause headaches, dizziness, and possibly hypotension, especially in light of his current medications. Advised patient that if he does happen to develop chest pain at any point, he is to tell the EMS or emergency personnel if he took this medicationto avoid a dangerous drop in BP with the administration of Nitro. Likewise he is not to take the nitrostat he has at home if he develops chest pain after taking the Viagra. If any erection lasts longer than 4 hours he is to go to ER for evaluation/treatment. Pt voiced understanding. Advised if the above is not effective, can provide him with a referral to Urology for further discussion. Right inguinal pain Upon discussion with pt, the area described is consistent with right inguinal hernia. It reduces after urination. Denies any scrotal or testicular pain. No issues with BM's. Offered imaging and/or referral. Pt would like to hold off and monitor for now. Discussed s/s that would warrant immediate evaluation, ie increase in pain, unable to reduce the swelling. Pt voiced understanding. Follow up for Appointment As Scheduled. documented in this encounterHeartland Behavioral Health [id number] NoteProgress Note-Physician Patient: SKIP CABELLO Age: 84 years Sex: Male : 1940 Associated Diagnoses: None Author: Lydia KABA, Jennifer Holland. Postoperative Information Postoperative disposition: Postoperative disposition: Home. Optimetrix number: Optimetrix number [id number]. Anesthetic utilized: Monitored anesthesia care. Health Status Allergies: Allergic Reactions (All) No Known Allergies Current medications: (Selected) Inpatient Medications Ordered Carafate 1 gram Tab: 1 gram = 1 tab(s), Tab, Oral, TIDAC, Routine, Start date 12/01/24 11:30:00 EDT Lactated Ringers IV Elena 1000 mL 1,000 mL: 1,000 mL, IV, 100 mL/hr, Routine, Start date 12/01/24 8:16:00 EDT, 10 hour(s), Total volume (mL): 1,000 Sodium Chloride 0.9% IV Elena 1000 mL 1,000 mL: 1,000 mL, IV, 20 mL/hr, Routine, Start date 12/01/24 6:45:00 EDT, 50 hour(s), Total volume (mL): 1,000 Zofran 4 mg/2 mL Injection: 4 mg = 2 mL, Injection, IV Push, Once PRN Nausea/Vomiting, Routine, Start date 12/01/24 8:16:00 EDT, 12/01/24 8:16:00 EDT promethazine additive 12.5 mg + Sodium Chloride 0.9% IV Elena 50 mL (INT) 50 mL: Injection, IV Piggyback, Once PRN Nausea/Vomiting, Routine, Start date 12/01/24 8:16:00 EDT, 151.5 mL/hr, Infuse over 20minute(s) Prescriptions Prescribed Carafate 1 gram Tab: 1 gm = 1 tab(s), Oral, QID, X 14 day(s), # 56 tab(s), Refills(s) 3, Pharmacy: [facility]/pharmacy #[id number], 162, cm, 12/01/24 8:30:00 EDT, Height/Length Dosing, 67.2, kg, 12/01/24 8:30:00 EDT, Weight Dosing Hepatic panel, CBC: Hepatic panel, CBC, Have labs on 09/05, Print Requisition, Supply Pantoprazole [address] Tab: 40 mg = 1 tab(s), Oral, BIDAC, X 90 day(s), # 180 tab(s), Refills(s) 3, Pharmacy: [facility]/pharmacy #[id number], 162, cm, 12/01/24 8:30:00 EDT, Height/Length Dosing, 67.2, kg, 12/01/24 8:30:00 EDT, Weight Dosing Stool Hpylori antigen: Stool Hpylori antigen, Please send stool sample cup and depressor for collection and to drop off at hospital, Print Requisition, Supply aspirin 81 mg Oral EC Tab: 81 mg = 1 tab(s), Oral, Daily, Please make sure that aspirin is always enteric coated. May resume on 09/03 if no bleeding, # 30 tab(s), Refills(s) 0 Documented Medications Documented atorvastatin 40 mg Tab: 80 mg = 2 tab(s), TAKE 1 TABLET BY MOUTH EVERYDAY AT BEDTIME carvedilol 6.25 mg Tab: 6.25 mg = 1 tab(s), BID, TAKE 1 TABLET BY MOUTH EVERY MORNING AND EVENING WITH MEALS clopidogrel 75 mg Tab: 75 mg = 1 tab(s), Oral, Daily, Refills(s) 0, Blood Thinner isosorbide mononitrate 30 mg ER Tab: TAKE 1 TABLET BY MOUTH EVERY DAY lisinopril 20 mg Tab: 20 mg = 1 tab(s), Oral, Daily, Hold for systolic blood pressure 110 or less magnesium oxide 400 mg Tab: 800 mg = 2 tab(s), Oral, Refills(s) 0, Home Medications (11) Active aspirin 81 mg Oral EC Tab 81 mg = 1 tab(s), Oral, Daily atorvastatin 40 mg Tab 80 mg = 2 tab(s) Carafate 1 gram Tab 1 gm = 1 tab(s), Oral, QID carvedilol 6.25 mg Tab 6.25 mg = 1 tab(s), BID clopidogrel 75 mg Tab 75 mg = 1 tab(s), Oral, Daily Hepatic panel, CBC 0 isosorbide mononitrate 30 mg ER Tab lisinopril 20 mg Tab 20 mg = 1 tab(s), Oral, Daily magnesium oxide 400 mg Tab 800 mg = 2 tab(s), Oral Pantoprazole [address] Tab 40 mg = 1 tab(s), Oral, BIDAC Stool Hpylori antigen 0 Problem list: All Problems Acute nephropathy / SNOMED CT 07526651 / Confirmed Acute pharyngitis / SNOMED CT 585123133 / Confirmed Acute posthemorrhagic anemia / SNOMED CT 893713335 / Confirmed Anemia / SNOMED CT 137939966 / Confirmed Angina, class III / SNOMED CT 508038617 / Confirmed Aortic valve stenosis / SNOMED CT 820622289 / Confirmed Aortocoronary bypass graft present / SNOMED CT 9186773415 / Confirmed Attention deficit hyperactivity disorder / SNOMED CT 1755692330 / Confirmed Basal cell carcinoma of back / SNOMED CT 7837798264 / Confirmed Benign prostatic hyperplasia / SNOMED CT 506274365 / Confirmed Bilateral hearing loss / SNOMED CT 659392913 / Confirmed Black tarry stools / SNOMED CT 05505641 / Confirmed Calculus of gallbladder with cholecystitis / SNOMED CT 23937467 / Confirmed Candidal paronychia / SNOMED CT 282613175 / Confirmed Cardiac arrhythmia. / SNOMED CT 7908904075 / Confirmed Cardiomyopathy / SNOMED CT 366967237 / Confirmed Carpal tunnel syndrome of right wrist / SNOMED CT 519622680826205 / Confirmed Cervical spondylosis without myelopathy / SNOMED CT 756240541 / Confirmed Chronic kidney disease due to type 2 diabetes mellitus / SNOMED CT 4927431099 / Confirmed Chronic kidney disease stage 3A. / SNOMED CT 7985426580 / Confirmed Chronic kidney disease stage 3B. / SNOMED CT 8363471913 / Confirmed Chronic obstructive pulmonary disease / SNOMED CT 916481209 / Confirmed Chronic systolic heart failure / SNOMED CT 3192843784 / Confirmed Congestion of nasal sinus / SNOMED CT 563167708 / Confirmed Contact dermatitis / SNOMED CT 46211454 / Confirmed Coronary arteriosclerosis / SNOMED CT 71615634 / Confirmed Coronary a (more content not included)...[facility] HospitalComment on above:Result Comment: Electronically Signed By: Lydia KABA, Jennifer Francisco\.br\Date and Time Signed: 12/01/24 11:54 [id number] NotePatient Education - Text Endoscopy Care After Procedure Please read the instructions outlined below and refer to this sheet in the next few weeks. These discharge instructions provide you with general information on caring for yourself [facility] Your doctor may also give you specific instructions. While your treatment has been planned according to the most current medical practices available, unavoidable complications occasionally occur. If you have any problems or questions after discharge, please call your doctor. ACTIVITY ??? You may resume your regular activity but move at a slower pace for the next 24 hours. ??? Take frequent rest periods for the next 24 hours. ??? Walking will help expel (get rid of) the air and reduce the bloated feeling in your abdomen. ??? No driving for 24 hours (because of the anesthesia (medicine) used during the test). ??? You may shower. ??? Do not sign any important legal documents or operate any machinery for 24 hours (because of theanesthesia used during the test). NUTRITION ??? Drink plenty of fluids. ??? You may resume your normal diet. ??? Begin with a light meal and progress to your normal diet. ??? Avoid alcoholic beverages for 24 hours or as instructed by your caregiver. MEDICATIONS ??? You may resume your normal medications unless your caregiver tells you otherwise. WHAT YOU CAN EXPECT TODAY ??? You may experience abdominal discomfort such as a feeling of fullness or ???gas??? pains. FOLLOW-UP ??? Your doctor will discuss the results of your test with you. seek immediate medical attention if any of the following occur: ??? Excessive nausea (feeling sick to your stomach) and/or vomiting. ??? Severe abdominal pain and distention (swelling). ??? Trouble swallowing. ??? Temperature over 100 F (37.8??? C). ??? Rectal bleeding or vomiting of blood. Document Released: 11/18/2004 Document Re-Released: 09/28/2006 [employer]??? Patient Information ???2009 [employer]. Gastroenterology Peptic Ulcer A peptic ulcer is a painful sore in the lining of your stomach or the first part of your small intestine. What are the causes? Common causes of this condition include: ??? An infection. ??? Using certain pain medicines too often or too much. ??? Rare tumors in the stomach, small intestine, or pancreas. What increases the risk? You are more likely to get this condition if you: ??? Smoke. ??? Have a family history of ulcer disease. ??? Drink alcohol. ??? Have been hospitalized in an intensive care unit (ICU). What are the signs or symptoms? Symptoms include: ??? Burning pain in the area between the chest and the belly button. The pain may: ? Not go away (be persistent). ? Be worse when your stomach is empty. ? Be worse at night. ??? Heartburn. ??? Feeling sick to your stomach (nauseous) and throwing up (vomiting). ??? Bloating. If the ulcer results in bleeding, it can cause you to: ??? Have poop (stool) that is black and looks like tar. ??? Throw up bright red blood. ??? Throw up material that looks like coffee grounds. How is this treated? Treatment for this condition may include: ??? Stopping things that can cause the ulcer, such as: ? Smoking. ? Using pain medicines. ? Drinking alcohol or caffeine. ??? Medicines to reduce stomach acid. ??? Antibiotic medicines if the ulcer is caused by an infection. ??? A procedure that is done using a small, flexible tube that has a camera at the end (upper endoscopy). This may be done if you have a bleeding ulcer. ??? Surgery. This may be needed if: ? You have a lot of bleeding. ? The ulcer caused a hole somewhere in the digestive system. Follow these instructions at home: ??? Do not drink alcohol if your doctor tells you not to drink. ??? Limit how much caffeine you take in. ??? Do not smoke or use any products that contain nicotine or tobacco. If you need help quitting, ask your doctor. ??? Take mhob-utp-meualgd and prescription medicines only as told by your doctor. ? Do not stop or change your medicines unless you talk with your doctor about it first. ? Do not take aspirin, ibuprofen, or other NSAIDs unless your doctor told you to do so. ??? Keep all follow-up visits. Contact a doctor if: ??? You do not get better in 7 days after you start treatment. ??? You keep having an upset stomach (indigestion) or heartburn. Get help right away if: ??? You have sudden, sharp pain in your belly (abdomen). ??? You have belly pain that does not go away. ??? You have bloody poop (stool) or black, tarry poop. ??? You throw up blood. It may look like coffee grounds. ??? You feel light-headed or feel like you may pass out (faint). ??? You get weak. ??? You get sweaty or feel sticky and cold to the touch (clammy). These symptoms may be an emergency. Get help right away. Call 911. ??? Do not wait to see if the symptoms will go sally (more content not included)...[facility]08-14-[facility] NoteEndoscopic Procedure Report - Other Patient: SKIP CABELLO Age: 84 years Sex: Male : 1940 Associated Diagnoses: None Author: Jazmin White MD Pre-Procedure Procedure Date 12/01/2024 10:00:00 . Procedure Type: Esophagogastroduodenoscopy with biopsy. Procedure provider Performed by Jazmin White MD. Current history and physical Documented on chart. Informed Consent After discussing the rationale, risks and benefits, and alternatives to this procedure, the patient provided signed consent for the procedure. Pre-procedure diagnosis: anemia. Medications Anticoagulant/antiplatelet None. ASA Classification: Class II. . Monitoring: See anesthesia record. . Procedure The procedure was performed in the hospital. See anesthesia record for sedation given during procedure. The patient was positioned starting in the left lateral decubitus position and with safety measures. Endoscope type used was an adult- size, introduced orally, advanced to the 2nd portion of the duodenum. No difficulty was encountered during the procedure. Views were excellent. The patient tolerated the procedure well. Findings 1. Esophageal landmarks identified, previously seen esophagitis completely healed up 2. Mild gastritis in the antrum of the stomach, multiple small clean-based ulcers in the antrum of the stomach, Jake class III. I biopsied the ulcers. In addition random gastric biopsies were alsotaken to rule out H. pylori 3. Normal examined duodenum Images Procedure images: Rec_hd_video____[id number].jpg Rec_hd_video__09__[id number].jpg Rec_hd_video__[id number].jpg Rec_hd_video__[id number].jpg Rec1_hd_video__[id number].jpg Rec1_hd_video_2024__[id number].jpg Rec1_hd_video_2024__[id number].jpg Rec1_hd_video_2024__[id number].jpg . Post-Procedure Complications: none. Estimated blood loss: minimal. Specimens: sent to pathology. Devices/ implants: none left in place. Impression and Plan 1. Esophageal landmarks identified, previously seen esophagitis completely healed up 2. Mild gastritis in the antrum of the stomach, multiple small clean-based ulcers in the antrum of the stomach, Jake class III. I biopsied the ulcers. In addition random gastric biopsies were alsotaken to rule out H. pylori 3. Normal examined duodenum Recommendations: -Resume previous diet -Increase pantoprazole to twice a day before meals, add Carafate 3 times a day, consider repeat EGDin 1 to 2 months to ensure ulcer is healing based on pathology results -Await pathology results, follow in GI clinic in 1-2 after dischargeMem[facility] HospitalComment on above:Result Comment: Electronically Signed By: Cindy KABA, Jazmin Colby\.br\Date and Time Signed: 12/01/24 10:11 EDTOther Comment: Missing Attachment - attachment storage system not supported [id number] Can be viewed in source system Missing Attachment - attachment storage system not supported [id number] Can be viewed in source systemMissing Attachment - attachment storage system not supported [id number] Can be viewed in source systemMissing Attachment - attachment storage system not supported [id number] Can be viewed in source systemMissing Attachment - attachment storage system not supported [id number] Can be viewed in source systemMissing Attachment - attachment storage system not supported [id number] Can be viewed in source systemMissing Attachment - attachment storage system not supported [id number] Can be viewed in source systemMissing Attachment - attachment storage system not supported [id number] Can be viewed in source system 12-01-2024 NoteHistory and Physical Patient: SKIP CABELLO Age: 84 years Sex: Male : 1940 Associated Diagnoses: None Author: Cindy KABA, Jazmin Colby Preoperative Information Indication for procedure and diagnosis: History of gastric ulcers, esophagitis Chief Complaint as above Review of Systems All systems reviewed, negative except as mentioned above Health Status Current medications: (Selected) Inpatient Medications Ordered Lactated Ringers IV Elena 1000 mL 1,000 mL: 1,000 mL, IV, 100 mL/hr, Routine, Start date 12/01/24 8:16:00 EDT, 10 hour(s), Total volume (mL): 1,000 Sodium Chloride 0.9% IV Elena 1000 mL 1,000 mL: 1,000 mL, IV, 20 mL/hr, Routine, Start date 12/01/24 6:45:00 EDT, 50 hour(s), Total volume (mL): 1,000 Zofran 4 mg/2 mL Injection: 4 mg = 2 mL, Injection, IV Push, Once PRN Nausea/Vomiting, Routine, Start date 12/01/24 8:16:00 EDT, 12/01/24 8:16:00 EDT promethazine additive 12.5 mg + Sodium Chloride 0.9% IV Elena 50 mL (INT) 50 mL: Injection, IV Piggyback, Once PRN Nausea/Vomiting, Routine, Start date 12/01/24 8:16:00 EDT, 151.5 mL/hr, Infuse over 20minute(s) Prescriptions Prescribed Hepatic panel, CBC: Hepatic panel, CBC, Have labs on 09/05, Print Requisition, Supply Pantoprazole [address] Tab: 40 mg = 1 tab(s), Oral, Daily, # 90 tab(s), Refills(s) 3, called to pharmacy (Rx) Stool Hpylori antigen: Stool Hpylori antigen, Please send stool sample cup and depressor for collection and to drop off at hospital, Print Requisition, Supply aspirin 81 mg Oral EC Tab: 81 mg = 1 tab(s), Oral, Daily, Please make sure that aspirin is always enteric coated. May resume on 09/03 if no bleeding, # 30 tab(s), Refills(s) 0 Documented Medications Documented atorvastatin 40 mg Tab: 80 mg = 2 tab(s), TAKE 1 TABLET BY MOUTH EVERYDAY AT BEDTIME carvedilol 6.25 mg Tab: 6.25 mg = 1 tab(s), BID, TAKE 1 TABLET BY MOUTH EVERY MORNING AND EVENING WITH MEALS clopidogrel 75 mg Tab: 75 mg = 1 tab(s), Oral, Daily, Refills(s) 0, Blood Thinner isosorbide mononitrate 30 mg ER Tab: TAKE 1 TABLET BY MOUTH EVERY DAY lisinopril 20 mg Tab: 20 mg = 1 tab(s), Oral, Daily, Hold for systolic blood pressure 110 or less magnesium oxide 400 mg Tab: 800 mg = 2 tab(s), Oral, Refills(s) 0, Home Medications (10) Active aspirin 81 mg Oral EC Tab 81 mg = 1 tab(s), Oral, Daily atorvastatin 40 mg Tab 80 mg = 2 tab(s) carvedilol 6.25 mg Tab 6.25 mg = 1 tab(s), BID clopidogrel 75 mg Tab 75 mg = 1 tab(s), Oral, Daily Hepatic panel, CBC 0 isosorbide mononitrate 30 mg ER Tab lisinopril 20 mg Tab 20 mg = 1 tab(s), Oral, Daily magnesium oxide 400 mg Tab 800 mg = 2 tab(s), Oral Pantoprazole [address] Tab 40 mg = 1 tab(s), Oral, Daily Stool Hpylori antigen 0 Problem list: All Problems Anemia / SNOMED CT 899826997 / Confirmed Aortocoronary bypass graft present / SNOMED CT 5275133023 / Confirmed Aortic valve stenosis / SNOMED CT 976013907 / Confirmed Angina, class III / SNOMED CT 943983491 / Confirmed Acute posthemorrhagic anemia / SNOMED CT 452820522 / Confirmed Acute pharyngitis / SNOMED CT 570437244 / Confirmed Acute nephropathy / SNOMED CT 24126134 / Confirmed Cardiomyopathy / SNOMED CT 626816923 / Confirmed Cardiac arrhythmia. / SNOMED CT 5792657830 / Confirmed Candidal paronychia / SNOMED CT 107622561 / Confirmed Calculus of gallbladder with cholecystitis / SNOMED CT 85950881 / Confirmed Bilateral hearing loss / SNOMED CT 841050653 / Confirmed Benign prostatic hyperplasia / SNOMED CT 007529702 / Confirmed Basal cell carcinoma of back / SNOMED CT 9715266664 / Confirmed Attention deficit hyperactivity disorder / SNOMED CT 6180885109 / Confirmed Coronary arteriosclerosis / SNOMED CT 05784485 / Confirmed Contact dermatitis / SNOMED CT 72559499 / Confirmed Congestion of nasal sinus / SNOMED CT 637949146 / Confirmed Chronic systolic heart failure / SNOMED CT 1406550541 / Confirmed Chronic kidney disease due to type 2 diabetes mellitus / SNOMED CT 8262691774 / Confirmed Chronic obstructive pulmonary disease / SNOMED CT 226793997 / Confirmed Chronic kidney disease stage 3B. / SNOMED CT 5165040075 / Confirmed Chronic kidney disease stage 3A. / SNOMED CT 5264655331 / Confirmed Cervical spondylosis without myelopathy / SNOMED CT 347147835 / Confirmed Carpal tunnel syndrome of right wrist / SNOMED CT 982299570926765 / Confirmed Generalized enlarged lymph nodes / SNOMED CT 437363267 / Confirmed Generalized anxiety disorder / SNOMED CT 27831435 / Confirmed Gastrointestinal hemorrhage / SNOMED CT 666242667 / Confirmed Gastroesophageal reflux disease without esophagitis / SNOMED CT 6684962544 / Confirmed Full thickness rotator cuff tear / SNOMED CT 114950459 / Confirmed Fibrosis of lung / SNOMED CT 89516132 / Confirmed Ex-cigarette smoker / SNOMED CT 489591525 / Confirmed Dyspnea / SNOMED CT 403973295 / Confirmed Dyskinesia / SNOMED CT 75044780 / Confirmed Diverticulosis of colon / SN (more content not included)...[facility] HospitalComment on above:Result Comment: Electronically Signed By: Cindy KABA, Jazmin Colby\.br\Date and Time Signed: 12/01/24 09:56 [id number] Note Progress Note-Physician Patient: SKIP CABELLO Age: 84 years Sex: Male : 1940 Associated Diagnoses: None Author: Lydia KABA, Jennifer Holland. Preoperative Information Anesthesia Preop Info: Time patient last ate or drank 12/01/2024 00:00:00. Anesthesia history: Patient history: No prior anesthetic problems. Anesthesia results: Anesthesia results from flowsheet 09/02/2024 4:06 EDT HGB 8.7 gm/dL LOW Hct 24.6 % LOW Alk Phos 46 Int._Unit/L ALT 10 Int._Unit/L AST 14 Int._Unit/L Total Protein 5.5 gm/dL LOW Albumin Lvl 3.6 gm/dL Globulin 1.9 gm/dL A/G Ratio 1.9 Bili Total 1.6 mg/dL HI Bili Direct 0.3 mg/dL Bili Indirect 1.3 mg/dL HI Temperature Oral 36.7 DegC Heart Rate Monitored 83 bpm Respiratory Rate 18 br/min Systolic Blood Pressure 126 mmHg Diastolic Blood Pressure 74 mmHg Blood Pressure Location Left arm Mean Arterial Pressure, Cuff 91 mmHg SpO2 96 % Oxygen Therapy Room air . Informed consent: Signed by patient. Re-evaluation prior to induction: Initial evaluation reviewed: No significant change. Review of Systems Respiratory: Negative except as documented in history of present illness. Cardiovascular: Negative except as documented in history of present illness. Health Status Allergies: Allergic Reactions (Selected) No Known Allergies, Allergies (1) Active Severity Reaction No Known Allergies None Documented Current medications: (Selected) Inpatient Medications Ordered Sodium Chloride 0.9% IV Elena 1000 mL 1,000 mL: 1,000 mL, IV, 20 mL/hr, Routine, Start date 12/01/24 6:45:00 EDT, 50 hour(s), Total volume (mL): 1,000 Prescriptions Prescribed Hepatic panel, CBC: Hepatic panel, CBC, Have labs on 09/05, Print Requisition, Supply Pantoprazole [address] Tab: 40 mg = 1 tab(s), Oral, Daily, # 90 tab(s), Refills(s) 3, called to pharmacy (Rx) Stool Hpylori antigen: Stool Hpylori antigen, Please send stool sample cup and depressor for collection and to drop off at hospital, Print Requisition, Supply aspirin 81 mg Oral EC Tab: 81 mg = 1 tab(s), Oral, Daily, Please make sure that aspirin is always enteric coated. May resume on 09/03 if no bleeding, # 30 tab(s), Refills(s) 0 Documented Medications Documented atorvastatin 40 mg Tab: 80 mg = 2 tab(s), TAKE 1 TABLET BY MOUTH EVERYDAY AT BEDTIME carvedilol 6.25 mg Tab: 6.25 mg = 1 tab(s), BID, TAKE 1 TABLET BY MOUTH EVERY MORNING AND EVENING WITH MEALS isosorbide mononitrate 30 mg ER Tab: TAKE 1 TABLET BY MOUTH EVERY DAY lisinopril 20 mg Tab: 20 mg = 1 tab(s), Oral, Daily, Hold for systolic blood pressure 110 or less magnesium oxide 400 mg Tab: 800 mg = 2 tab(s), Oral, Refills(s) 0, Home Medications (9) Active aspirin 81 mg Oral EC Tab 81 mg = 1 tab(s), Oral, Daily atorvastatin 40 mg Tab 80 mg = 2 tab(s) carvedilol 6.25 mg Tab 6.25 mg = 1 tab(s), BID Hepatic panel, CBC 0 isosorbide mononitrate 30 mg ER Tab lisinopril 20 mg Tab 20 mg = 1 tab(s), Oral, Daily magnesium oxide 400 mg Tab 800 mg = 2 tab(s), Oral Pantoprazole [address] Tab 40 mg = 1 tab(s), Oral, Daily Stool Hpylori antigen 0 , Medications (1) Active Scheduled: (0) Continuous: (1) Sodium Chloride 0.9% 1,000 mL 1,000 mL, IV, 20 mL/hr PRN: (0) Problem list: All Problems Acute nephropathy / SNOMED CT 64366224 / Confirmed Acute pharyngitis / SNOMED CT 540819274 / Confirmed Acute posthemorrhagic anemia / SNOMED CT 056897743 / Confirmed Anemia / SNOMED CT 057178077 / Confirmed Angina, class III / SNOMED CT 235451614 / Confirmed Aortic valve stenosis / SNOMED CT 461664688 / Confirmed Aortocoronary bypass graft present / SNOMED CT 3150848594 / Confirmed Attention deficit hyperactivity disorder / SNOMED CT 1342226505 / Confirmed Basal cell carcinoma of back / SNOMED CT 8075786406 / Confirmed Benign prostatic hyperplasia / SNOMED CT 132875290 / Confirmed Bilateral hearing loss / SNOMED CT 389992856 / Confirmed Black tarry stools / SNOMED CT 14998149 / Confirmed Calculus of gallbladder with cholecystitis / SNOMED CT 27437617 / Confirmed Candidal paronychia / SNOMED CT 217862950 / Confirmed Cardiac arrhythmia. / SNOMED CT 0097846405 / Confirmed Cardiomyopathy / SNOMED CT 843490607 / Confirmed Carpal tunnel syndrome of right wrist / SNOMED CT 987505523397292 / Confirmed Cervical spondylosis without myelopathy / SNOMED CT 290608104 / Confirmed Chronic kidney disease due to type 2 diabetes mellitus / SNOMED CT 7834107036 / Confirmed Chronic kidney disease stage 3A. / SNOMED CT 3822318411 / Confirmed Chronic kidney disease stage 3B. / SNOMED CT 0900934493 / Confirmed Chronic obstructive pulmonary disease / SNOMED CT 846759139 / Confirmed Chronic systolic heart failure / SNOMED CT 5714440999 / Confirmed Congestion of nasal sinus / SNOMED CT 510085433 / Confirmed Contact dermatitis / SNOMED CT 73682170 / Confirmed Coronary arteriosclerosis / SNOMED CT 18234577 / Confirmed Coronary artery disease / SNO (more content not included)...[facility] HospitalComment on above:Result Comment: Electronically Signed By: Lydia KABA, Jennifer Francisco\.br\Date and Time Signed: 12/01/24 08:15 [id number] Evaluation + Plan note Future Scheduled Tests Laboratory* TIBC Calculated 09/30/24 * CBC w/ Auto Diff 09/30/24 * Comprehensive Metabolic Panel 09/30/24 * Ferritin 09/30/24 * Iron Level 09/30/24 [facility] 05-19-2025 NoteUT Cardiology - [facility] Subjective Radha Cabello is a 83 y.o. year old male patient being seen for 6 month follow up. Patient states he was just released from [facility] on Thursday due lower GI bleed. Patient states he had and upper Endoscopy while in the hospital which showed 3 to 4 ulcers, which had stopped bleeding prior to the scope. Patient states while he was in the hospital the PROFESSOR OF SPORT MANAGEMENT stopped his Plavix for 72 hour and patient is to talk to cardiology as to if he should restart it or not. Patient is also wondering if he should still be taking the Farxiga. Patient denies chest pain, leg swelling, or leg pain. Patient complains of SOB, dizziness, challie horses, fatigue and dyspnea with exertion. Patient has blood work this am at [facility]. Patient Active Problem List Diagnosis Cardiovascular stress [...] February 2024. He was recently admitted to [facility] due to lower GI bleed. This was [...] Mental Status: He is (more content not included)...[facility]05-16-2025 Evaluation + Plan noteExtracted from:Title:Discharge Note Author:KEVIN AGACNP-BC, ReneeDate:09/02/24 Hemodynamically stable condi tion Discharge To, Anticipated II - Home with responsible caregiver Discharged to - Home independently Discharge Status: Improved Discharge Instructions Given: To patient Discharge disposition: Home Prescriptions reviewed with Patient 64 minutes spent in discharge time with patient, [facility] cardiology office, GI, patient's granddaughter, reviewing d/c [...] mg daily With When Contact Information EARL PATRICK 09/05/2024 09:45 AM EDT Additional Instructions: Appointment has already been scheduled - go to [facility] Jazmin White Within 1 to 2 weeks [address], [address] [facility] [address] [place] [address]- [phone] Business (1) Additional Instructions: SCOTTMILLER TAI Within 1 to 2 days [address] [place] [address]- Business (1) Additional Instructions: Esophagitis Gastritis, Adult Hiatal Hernia Extracted from:Title:ANES Post-operative Note - GeneralAuthor:Don Gentile Jr., DO GDate:09/01/24 Plan Transfer/Discharge: Transfer/Discharge Discharge when meets criteria ( From PACU to Ambulatory Surgery Unit, and To home ). Extracted from:Title:ANES Pre-operative Note - EndoAuthor:Don Gentile Jr., DO GDate:09/01/24 Plan [place] [employer] of Anesthesiologists (ASA) physical status classification: Class III. Anesthetic Preoperative Plan: Anesthesia General, and -TIVA. Extracted from:Title:Inpatient Consultation-Floor Code*Author:Cindy KABA, [facility] DavidalDate:09/01/24 Impression and Plan Ready this is an [...] notify me and consult general surgery Extracted from:Title:APSO NoteAuthor:KEVIN MANDELP-, ReneeDate:09/01/24 1. UGI bleed (K92.2: Gastroi ntestinal hemorrhage, [...] artery disease) (I25.10: Atherosclerotic heart disease of habematolel coronary artery without angina pectoris) Hx. of CABG -Hold asa, clopidogrel 2/2 UGIB -Hold lisinopril -Atorvastatin, carvedilol, imdur w/ hold parameters 5. HTN (hypertension), benign (I10: Essential (primary) hypertension) + orthostatic VS on presentation -Cardiac meds as above 6. Dyslipidemia (E78.5: Hyperlipidemia, unspecified) -Statin 7. On deep vein thrombosis (DVT) prophylaxis (Z79.899: Other half-way (current) drug therapy) Avoid chemical DVTp 2/2 [...] made to ensure accuracy, however, inadvertently computerized hardware technician mistakes may be present. Extracted from:Title:Admission H & PAuthor:Rusty KABA, KrhowardenDate:08/31/24 1. UGI bleed (K92.2: Gastroi ntestinal hemorrhage, [...] 15.6 in June 2024 to 7.9 at [place]. Ordered a stat H&H now. If hemoglobin less than 7 will transfuse. 3. HTN (hypertension), benign (I10: Essential (primary) hypertension) SBP currently 150s. Would prefer patient run a little on the higher side, then risk hypotension in setting of above. Holding home Coreg, lisinopril 4. CAD (coronary artery disease) (I25.10: Atherosclerotic heart disease of habematolel coronary artery without angina pectoris) Holding home aspirin, Lipitor, Coreg, Plavix, Imdur, lisinopril 5. Dyslipidemia (E78.5: Hyperlipidemia, unspecified) Holding statin 6. Hx of CABG (Z95.1: Presence of aortocoronary bypass graft) In 2009 Future Appointments Appointment Date:09/30/2024 09:30:00 AM Scheduled Provider:Jazmin White MD Location:[facility] Appointment Type:[facility] Follow Up Diagnostic Tests Pending * Path. Review 09/01/24 * H. pylori Stool Ag 09/01/24 [facility] 05-16-2025 Hospital Discharge instructions Patient Education 09/02/2024 [...] Follow these instructions at home: Medicines Take fkbb-qaq-wdtrnja and prescription medicines only as told by [...] powder, vinegar, hot sauces, and barbecue sauce. ?[place] fruit juices and citrus fruits, such as oranges, aure, and limes. ?Tomato-based foods, such as red sauce, chili, salsa, and pizza with red sauce. ?Fried and fatty foods, such as donuts, azeri fries, potato chips, and high-fat dressings. ?High-fat [...] provider. Document Revised: 10/15/2020 Document Reviewed: 10/15/2020 [email or web address] Patient Education 2023 [employer]. 09/02/2024 08:41:58 Gastritis, Adult Gastritis, Adult Gastritis [...] medicines. These include steroids, antibiotics, and some tarn-bft-nzxircv medicines, such as aspirin or ibuprofen. Having [...] Follow these instructions at home: Medicines Take oert-azk-dregfyp and prescription medicines only as told by [...] provider. Document Revised: 08/10/2021 Document Reviewed: 08/10/2021 [email or web address] Patient Education 2023 [employer]. 09/02/2024 08:41:58 Hiatal Hernia Hiatal Hernia A [...] reduce GERD symptoms. Medicines. These may include: ?Vrho-dsf-hkdtnqf antacids. ?Medicines that make your stomach empty [...] may include: ?Fatty foods, like fried foods. ?[place] fruits, like oranges or lemon. ?Other foods [...] Do not drink alcohol. General instructions Take nvps-obq-ganrjkj and prescription medicines only as told by [...] provider. Document Revised: 06/03/2022 Document Reviewed: 06/03/2022 [email or web address] Patient Education 2023 [employer]. Follow Up Care 08/31/2024 17:41:30 With:Jazmin White Address: [address], [facility] [address] [address]- [phone] Business (1) When:09/30/2024 09:30:00 With:SCOTT TAI Address: [address] [place] [address]- Business (1) When:1 to 2 days Comments:Call for followup appointment With:EARL PATRICK Address:Unknown When:09/05/2024 09:45:00 Comments:Appointment has already been scheduled - go to [facility] 05-16-2025 NoteDischarge Summary Admission and Discharge [...] CABG, HTN, HLD. - Patient presented from [facility] ED secondary to concern for dizziness, dyspnea [...] provider note 06/2024 hgb was 15.6 at [place] -Anemia panel - results to PCP office 3. Hypocalcemia (E83.51: Hypocalcemia) 09/01: Corrected Ca 8.4 -Trend labs 4. CAD (coronary artery disease) (I25.10: Atherosclerotic heart disease of habematolel coronary artery without angina pectoris) Hx. of CABG -Hold asa, clopidogrel 2/2 UGIB -Pt. primary software sales representative Dr. Pozo no longer w/ [facility], I spoke w/ Angelika Mckay on behalf of Dr. Ashley who is assuming care w/ review of GIB and request to hold clopidogrel until 09/05 - she isagreeable and pt. has a f/u appt w/ them on 09/05 to further review med regimen, -Resume lisinopril at [place] as Cr is stable - w/ hold [...] and discussed with Dr. Tai PCP or production machine tender MD once the hospital beveling and edging machine operator is able to reach him/her. I [...] made to ensure accuracy, however, inadvertently computerized hardware technician mistakes may be present. Significant Findings No qualifying data available. Services Consulted - Completed -- 08/31/24 23:03:02 EDT Consult to GI - Ordered -- 08/31/24 23:23:00 EDT, UGI bleed, acute blood loss anemia, Consult and Co-manage Physical Exam Vitals & Measurements T: 36.9 ???C(Axillary) TMIN: 36.3 ???C(Oral) TMAX: 36.9 ???C(Oral) HR: 87(Monitore (more content not included)...[facility] HospitalComment on above:Result Comment: Electronically Signed By: Nely MCNEIL\.br\Date and Time Signed: 09/02/24 09:22 EDT\.br\Electronically Co-Signed By: Fritz Deluca DO.br\Date and Time Co-Signed: 09/02/24 10:06 [id number] Note Progress Note-Physician Assessment/Plan 1. UGI bleed [...] artery disease) (I25.10: Atherosclerotic heart disease of habematolel coronary artery without angina pectoris) Hx. of CABG -Hold asa, clopidogrel 2/2 UGIB -Hold lisinopril -Atorvastatin, carvedilol, imdur w/ hold parameters 5. HTN (hypertension), benign (I10: Essential (primary) hypertension) + orthostatic VS on presentation -Cardiac meds as above 6. Dyslipidemia (E78.5: Hyperlipidemia, unspecified) -Statin 7. On deep vein thrombosis (DVT) prophylaxis (Z79.899: Other half-way (current) drug therapy) Avoid chemical DVTp 2/2 [...] made to ensure accuracy, however, inadvertently computerized hardware technician mistakes may be present. Subjective No acute [...] HEENT: Mucous membrane moist. Tongue normal, + [place] Neck: Trachea midline, neck supple, Chest: No [...] 05:23:00) Lymph Auto: 19.3 % (09/01/24 05:23:00) Dimmit Auto: 8.6 % (09/01/24 05:23:00) Eos Auto: 0.8 % (09/01/24 05:23:00) Basophil Au (more content not included)...[facility] HospitalComment on above:Result Comment: Electronically Signed By: Nely MCNEIL\.br\Date and Time Signed: 09/01/24 10:06 EDT\.br\Electronically Co-Signed By: Fritz Deluca DO\.br\Date and Time Co-Signed: 09/02/24 09:14 [id number] Note Patient Education - Text Gastroenterology Esophagitis [...] these instructions at home: Medicines ??? Take sqti-bpy-aispozm and prescription medicines only as told by [...] vinegar, hot sauces, and barbecue sauce. ? [place] fruit juices and citrus fruits, such as oranges, aure, and limes. ? Tomato-based foods, such as red sauce, chili, salsa, and pizza with red sauce. ? Fried and fatty foods, such as donuts, azeri fries, potato chips, and high- fat dressings. [...] know about them. ? (more content not included)...[facility]05[facility]20[facility] Note Progress Note-Physician Patient: RADHA CABELLO Age: 83 years Sex: Male : 1940 Associated Diagnoses: None Author: Don Gentile Jr., DO Postoperative Information Postoperative disposition: Postoperative disposition: Home. Optimetrix number: Optimetrix number [id number]. Anesthetic utilized: General. Physical Examination Vital Signs [...] to Ambulatory Surgery Unit, and To home ).[facility] HospitalComment on above:Result Comment: Electronically Signed By: Don Gentile Jr., DO\.br\Date and Time Signed: 09/01/24 13:03 [id number] NoteEndoscopic Procedure Report - Other Patient: RADHA [...] Normal examined duodenum otherwise Images Procedure images: Rec_hd_video__34_362.jpg Rec_hd_video__31_027.jpg Rec_hd_video___21_222.jpg Rec_hd_video__56_816.jpg Rec_hd_video__34_314.jpg Rec1_hd_video_2024____22_999.jpg Rec1_hd_video____03_881.jpg Rec1_hd_video_2024____56_283.jpg Rec1_hd_video____42_692.jpg Rec1_hd_video_2024____18_448.jpg Rec1_hd_video____12_957.jpg Rec1_hd_video____10_096.jpg Rec1_hd_video____33_136.jpg Rec1_hd_video___29_419.jpg . Post-Procedure Complications: none. [...] EGD in 3 months to ensure esophagitis healingMemorial Health System Selby General HospitalComment on above:Result Comment: Electronically Signed By: Cindy KABA, Jazmin Colby\.br\Date and Time Signed: 09/01/24 11:59 EDTOther Comment: Missing Attachment - attachment storage system not supported [id number] Can be viewed in source system Missing Attachment - attachment storage system not supported [id number] Can be viewed in source systemMissing Attachment - attachment storage system not supported [id number] Can be viewed in source systemMissing Attachment - attachment storage system not supported [id number] Can be viewed in source systemMissing Attachment - attachment storage system not supported [id number] Can be viewed in source systemMissing Attachment - attachment storage system not supported [id number] Can be viewed in source systemMissing Attachment - attachment storage system not supported [id number] Can be viewed in source systemMissing Attachment - attachment storage system not supported [id number] Can be viewed in source system Missing Attachment - attachment storage system not supported [id number] Can be viewed in source systemMissing Attachment - attachment storage system not supported 4634425 Can be viewed in source systemMissing Attachment - attachment storage system not supported 6851253 Can be viewed in source systemMissing Attachment - attachment storage system not supported [id number] Can be viewed in source systemMissing Attachment - attachment storage system not supported 1184750 Can be viewed in source systemMissing Attachment - attachment storage system not supported [id number] Can be viewed in source [id number] Note Consultation Note Patient: RADHA CABELLO Age: [...] Last Charted Temp Oral 36.9 DegC (SEPTEMBER 01 10:) Heart Rate Peripheral 80 bpm (SEPTEMBER 01:) [...] bleed please notify me and consult general surgeryMemorial Health System [facility] General HospitalComment on above:Result Comment: Electronically Signed By: Cindy KABA, Jazmin Colby\.tom\Date and Time Signed: 09/01/24 11:50 [id number] Note Progress Note-Physician Patient: RADHA CABELLO Age: [...] 16 br/min Systolic Blood (more content not included)...[facility] HospitalComment on above:Result Comment: Electronically Signed By: Don Gentile Jr., DO\Date and Time Signed: 09/01/24 10:50 [id number] NoteHistory and Physical Basic Information Admit Date/Time:08/31/2024 20:04 Chief Complaint sob with exertion, dizziness History of Present Illness 83-year-old male with a past medical history of CAD status post CABG on aspirin and Plavix, hypertension, dyslipidemia He presented to [facility] with dizziness and dyspnea on exertion. Noticed the symptoms on Thursday. Also reports melanotic stools. No vomiting or abdominal pain. He denies any prior history of ulcers. He states he does take something for low back pain every night, but he has no idea if it is Tylenol or an NSAID. Workup in [place] ER revealed stable blood pressure, no tachycardia. He was orthostatic positive as systolic BP dropped from 130 to 102 with standing. His hemoglobin came back at 7.9 today. Back in June 2024 it was 15.6. Stool occult blood positive. He was given 1 L of IV fluids. Not transfused any blood. Does not appear he was given the Protonix. Transferred to [facility] for further GI management. Review of Systems [...] good eye contact Lab Results Labs from [place] reviewed. Diagnostic Results CXR negative Assessment/Plan 1. [...] 15.6 in June 2024 to 7.9 at [place]. Ordered a stat H&H now. If hemoglobin less than 7 will transfuse. 3. HTN (hypertension), benign (I10: Essential (primary) hypertension) SBP currently 150s. Would prefer patient run a little on the higher side, then risk hypotension in setting of above. Holding home Coreg, lisinopril 4. CAD (coronary artery disease) (I25.10: Atherosclerotic heart disease of habematolel coronary artery without angina pectoris) Holding home [...] takes 840 mg daily Allergies No Known AllergiesMemorial Health System [facility] HospitalComment on above:Result Comment: Electronically Signed By: Rusty KABA, Nicole\.br\Date and Time Signed: 08/31/24 23:41 [id number] History of Present illness Narrative* Debbi Murcia, RUBBER PRESS TENDER - 05/04/2024 8:30 AM EST Images from [...] carcinoma Brachial neuralgia CAD (coronary artery disease) ([facility]/HCC) Chest pain 11/20/18-11/21/18, 03/20/17 Chest pain 07/01/2020 Electrolyte Imbalance, NSTEMI Coronary atherosclerosis of habematolel coronary artery ([facility]) Diverticulosis 12/2019 Heart disease History of being hospitalized 05/22/2023 Hypotension, SRINIVAS History of cholecystectomy 2003 History of echocardiogram 2020 EF 40% Hyperlipemia (CMS/HCC) Hypertension (CMS/HCC) 06/2014 Pancreatitis Past Surgical History: Procedure Laterality Date ANGIOPLASTY APPENDECTOMY 1960 CHOLECYSTECTOMY COLONOSCOPY 2019 CORONARY ARTERY BYPASS GRAFT 2009 [facility] schwann EGD 2019 HERNIA REPAIR 2003 Visit [...] in wrist at this time. 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 (CMS/HCC) This is [...] No follow-ups on file. documented in this encounterHeartland Behavioral Health [id number] NoteCardiology Clinic Note Subjective Radha Cabello is [...] 03/20/2017 Patent 3 out (more content not included)...[facility] 01-13-2024 History of Present illness Narrative* [...] Do you have a medical power of employment attorney?: Yes Who is your medical power of employment attorney?: daughter Objective : BP 128/66 Pulse [...] facility ACP (advance care planning) 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 (CMS/HCC) - CBC [...] on January 13, 2024 documented in this encounterHeartland Behavioral Health [id number] History of Present illness Narrative* Scott Tai MD - 05/27/2023 3:30 PM EST HPI Follow-up Additional comments: Went to [facility] ER 05/22/23 was kept for observation dx: hypotension coreg and lisinopril doses decreased and advised to stop spironolactone Last edited by Viviana Martini LPN on 05/27/2023 3:27 PM. Subjective Patient ID: Skip Cabello is a 82 y.o. male who presents for Follow-up (Went to [facility] ER 05/22/23 was kept for observation dx: hypotension coreg and lisinopril doses decreased and advised to stop spironolactone) and Arm Pain. Flowsheet Row Patient Outreach from 05/26/2023 in [facility] with Shu LiuDELICIA cavazos Discharge Information ED or Hospital Discharge? ED Patient has been contacted within 1 week of being seen in the ED Yes Discharge Date 05/22/23 Discharge Hospital [facility] Discharged To: Home Setting Engagement [...] nitroglycerin (Nitrostat) 0.4 MG SL tablet pancrelipase, Obh-Zvqv-Xpmu, (Creon) 25161-80722 units capsule Take by mouth 3 (three) [...] 07/01/2020 Electrolyte Imbalance, NSTEMI Coronary atherosclerosis of habematolel coronary artery (CMS/HCC) Diverticulosis 12/2019 Heart disease History of cholecystectomy 2003 History of echocardiogram 2020 EF 40% Hyperlipemia (CMS/HCC) Hypertension (CMS/HCC) 06/2014 Pancreatitis Past Surgical History: Procedure Laterality Date ANGIOPLASTY APPENDECTOMY 1960 CHOLECYSTECTOMY COLONOSCOPY 2019 CORONARY ARTERY BYPASS GRAFT 2009 [facility] schwann EGD 2019 HERNIA REPAIR 2003 Visit [...] failure), NYHA class 2 (CMS/HCC) 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 (CMS/HCC) Right cervical radiculopathy - methylPREDNISolone (Medrol Dospak) 4 MG tablets; Follow schedule on package instructions Follow up in about 4 weeks (around 06/24/2023) for Recheck, F/U med changes. documented in this encounterHeartland Behavioral Health [id number] Evaluation note* Encounter Date Diagnosis Assessment Notes Treatment Notes Treatment Clinical Notes Apr, Liver lesion, right lobe (ICD-10 - K76.9) [facility] Other Evaluation noteNo InformationNom[facility] Other Evaluation note* Diagnosis Benign essential hypertension (CMS/HCC)- Primary Essential hypertension, benign Chronic systolic CHF (congestive heart failure), NYHA class 2 (CMS/HCC) 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 (CMS/HCC) Right cervical radiculopathy documented in this encounter [facility] HealthcareEvaluation note* Diagnosis Routine general medical examination at health care facility- Primary Routine general medical examination at a health care facility ACP (advance care planning) Other specified counseling 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 (CMS/HCC) Atrial enlargement, [...] tunnel syndrome of right wrist 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 (CMS/HCC) Atrial enlargement, [...] [facility] Diagnosis Chronic systolic (congestive) heart failure (HCC)- Primary Dizziness Dizziness and giddiness Erectile dysfunction, unspecified erectile dysfunction type Right inguinal pain Abdominal pain, right lower quadrant documented in this encounter [facility] Diagnosis Chronic systolic (congestive) heart failure (HCC)- Primary Chronic kidney disease, stage 3a (CMS-HCC) 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 Benign essential hypertension Essential hypertension, benign documented in this encounter [facility] Narrative - Reported* Type Description Date Medical History GERD Medical HistoryHTNMedical HistoryhyperlipidemiaMedical HistoryCHFSurgical HistorytonsillectomySurgical HistorycholecystectomySurgical Historytriple bypass Surgical HistoryappendectomyHospitalization Historysee surgical history [place] Other Hospital course Narrative No data available for this section [facility] Discharge instructions No data available for this section [facility] Progress note No data available for this section [facility] Summary Purpose Family History No Family History [...] for this section No Family History Records Found Advance Directives No [...] Records Found Hospital Course Note MR#: [id number] [facility] Pt. Name: Radha Cabello Admitted: 07/01/2020 [...] and content) DATE CREATED AUTHOR 06/29/2018 [facility] DATE CREATED AUTHOR AUTHOR'S ORGANIZ ATION 07/13/2020 [facility] DATE CREATED AUTHOR AUTHOR'S ORGANIZ ATION 06/17/2021 [facility] [employer] DATE CREATED AUTHOR AUTHOR'S ORGANIZ ATION 07/31/2021 [facility] DATE CREATED AUTHOR AUTHOR'S ORGANIZ ATION 09/23/2021 [facility] DATE CREATED AUTHOR AUTHOR'S ORGANIZ ATION 09/02/2024 [facility] DATE CREATED AUTHOR AUTHOR'S ORGANIZ ATION 09/03/2024 [facility] DATE CREATED AUTHOR AUTHOR'S ORGANIZ ATION 09/04/2024 [facility] DATE CREATED AUTHOR AUTHOR'S ORGANIZ ATION 10/08/2024 [facility] DATE CREATED AUTHOR AUTHOR'S ORGANIZ ATION 10/10/2024 [facility] DATE CREATED AUTHOR AUTHOR'S ORGANIZ ATION 12/02/2024 [facility] DATE CREATED AUTHOR AUTHOR'S ORGANIZ ATION 12/11/2024 [facility] DATE CREATED AUTHOR AUTHOR'S ORGANIZ ATION 01/21/2025 [facility] DATE CREATED AUTHOR AUTHOR'S ORGANIZ ATION 02/15/2025 [facility] DATE CREATED AUTHOR AUTHOR'S ORGANIZ ATION 02/16/2025 [facility] DATE CREATED AUTHOR AUTHOR'S ORGANIZ ATION 02/21/2025 [facility] REASON FOR VISIT (unrecogniz ed section and content) ReasonCommentsFollow-upWent [facility] was kept for observation dx: hypotension coreg and lisinopril doses decreasedand advised to stop spironolactoneArm PainReasonCommentsMedicare Annual Wellness Visit Subsequent ReasonCommentsCongestive Heart FailureHypertension Care Teams (unrecognized sec tion and content) Team MemberRelationshipSpecialtyStart DateEnd Date Scott Tai MD [address] [facility] [address] [place] [address] PCP - [place]04/20/21 Scott Tai MD [address] [facility] [address] [place] [address] PCP - GeneralInternal Medicine10/22/22Team MemberRelationshipSpecialtyStart Date End Date Scott Tai MD [address] [address] [place] [address] PCP - [place]04/20/21 Scott Tai MD [address] [place] [address] [facility] - [facility]10/22/22Team MemberRelationshipSpecialtyStart Date End Date Scott Tai MD [address] [place] [address] PCP - [place]04/20/21 Scott Tai MD [address] [place] [address] PCP - GeneralInternal [facility]10/22/22Te MemberRelationshipSpecialtyStart Date End Date Scott Tai MD [address] [place] [address] PCP - [place]04/20/21 Scott Tai MD [address] [place] [address] PCP - [facility] Services[facility]10/22/22Te MemberRelationshipSpecialtyStart Date End Date Scott Tai MD [address] [place] [address] PCP - [place]04/20/21 Scott Tai MD [address] [place] [address] PCP - GeneralInternal Medicine10/22/22Team MemberRelationshipSpecialtyStart Date End Date Scott Tai MD [address] [place] [address] PCP - [place]04/20/21 Scott Tai MD [address] [place] [address] PCP - GeneralInternal Medicine10/22/22Team MemberRelationshipSpecialtyStart Date End Date Scott Tai MD [address] [place] [address] PCP - [place]04/20/21 Scott Tai MD [address] [place] [address] PCP - GeneralInternal Medicine10/22/22 Ruma Fernandes LPN 07/08/24Team MemberRelationshipSpecialtyStart DateEnd Date Scott Tai MD [address] [place] [address] PCP - [place]04/20/21 Scott Tai MD [address] [place] [address] PCP - GeneralInternal Medicine10/22/22 Ruma Fernandes LPN [address] [place] [address] 07/08/24Team MemberRelationshipSpecialtyStart DateEnd Date Scott Tai MD [address] [place] [address] PCP - [place]04/20/21 Scott Tai MD [address] [place] [address] PCP - GeneralInternal Medicine10/22/22 Rmua Fernandes LPN [address] [place] [address] 07/08/24Team MemberRelationshipSpecialtyStart DateEnd Date Scott Tai MD [address] [place] [address] PCP - [place]04/20/21 Scott Tai MD [address] [place] [address] PCP - GeneralInternal Medicine10/22/22 Ruma Fernandes LPN [address] [place] [address] 07/08/24Team MemberRelationshipSpecialtyStart DateEnd Date Scott Tai MD [address] [place] [address] PCP - [place]04/20/21 Scott Tai MD [address] [place] [address] PCP - GeneralInternal Medicine10/22/22 Ruma Fernandes LPN [address] [place] [address] 07/08/24Team MemberRelationshipSpecialtyStart DateEnd Date Scott Tai MD [address] [facility] [address] [place] [address] PCP - [place]04/20/21 Scott Tai MD [address] [facility] [address] [place] [address] PCP - GeneralInternal Medicine10/22/22 Shelley Gilmore, ALYCIA [address] [place], [place] [id number] [facility] Ruma Fernandes LPN [address] [address] 07/08/24 FOR RECORDS PERTAINING TO PATIENTS WHO [...] BE BASED ON THE PRIMARY CLINICAL RECORDS. [employer] [facility]. provides no warranty or guarantee of the accuracy or completeness of information in this document.
--- NOTE | 2025-02-22 09:00 | CA_ITS ---
Patient Name: LIDA BOB MR#: [id number] : 1940 Exam Date: 02/22/2025 Ordering Doctor: DR KYLE PATRICK M.D. ECHOCARDIOGRAM REPORT PROCEDURE: CA ECHO DOPPLER COMPLETE INDICATIONS: Heart failure with reduced ejection fraction COMPARISON: None. DESCRIPTION: COMPLETE ECHOCARDIOGRAM Real-time transthoracic echocardiography with 2D, M-mode, spectral and color flow Doppler performed. QUALITY: Technical quality was good. LEFT VENTRICLE: Normal chamber size. Proximal septal hypertrophy (sigmoid septum). Global left ventricular systolic function is moderately decreased. There is akinesis of the mid and distal septum, apex, apical inferior and apical anterior segments. LV EF: Estimated left ventricular ejection fraction is 35-40%. DIASTOLIC: Grade I diastolic dysfunction. ATRIAL SEPTUM: LEFT ATRIUM: Moderate dilatation. RIGHT ATRIUM: Mild dilatation. RIGHT VENTRICLE: Normal chamber size. Normal right ventricular systolic function. TRICUSPID VALVE: Normal mobility and thickness. No stenosis with mild regurgitation. No evidence of pulmonary hypertension. RVSP 34 mmHg. MITRAL VALVE: Normal mobility and thickness. No evidence of mitral valve stenosis. There is no mitral annular calcification. Mild mitral regurgitation. AORTIC VALVE: Normal trileaflet appearance. Mildly calcified aortic valve. Normal leaflet mobility. No evidence of aortic valve stenosis. Trivial aortic regurgitation. AORTIC ROOT: Normal diameter and appearance, measuring 3.5 cm. The ascending aorta is normal in size and measures 3.2 cm. PULMONIC VALVE: Normal thickness and mobility. No stenosis. Trivial regurgitation. PERICARDIUM: No evidence of pericardial effusion. IVC: Collapses with inspiration. Normal size. PLEURA: CONCLUSION: 1. The left ventricle is normal in size with moderately reduced systolic function. There are segmental wall motion abnormalities involving the LAD territory. Estimated LVEF is 35 to 40%. 2. Normal right ventricular size and systolic function. 3. Moderate left atrial dilatation. 4. Grade 1 diastolic dysfunction. 5. No significant valvular dysfunction. 6. Normal right-sided pressures. Adult Echocardiography Procedure Report Left Ventricle LVEDD (3.7 - 5.6 cm): 4.49 cm LVESD (2.2 - 4.0 cm): 3.58 cm LVIVS thickness (0.6 - 1.2 cm): 1.25 cm LVPW thickness (0.5 - 1.0 cm): 0.90 cm e': 0.06 m/s E - e': 11.76 LVOT Max Gradient: 2.88 mm[Hg] LVOT Area (cm2): 0.85 m/s Peak Velocity (LVOT): 0.85 m/s Mean Velocity (LVOT): 0.58 m/s LVOT Diameter 2.40 cm Left Ventricular Ejection Fraction: 35-40 % Left Atrium LA Volume Index (2D A2C): 46.05 ml/m2 Left Atrium Systolic Dimension: 4.53 cm Mitral Valve MV E to A Ratio: 0.82 Mitral Valve A-Wave Peak Velocity: 0.89 m/s Mitral Valve E-Wave Peak Velocity: 0.73 m/s Right Ventricle RV Internal Diastolic Dimension: 3.92 cm Aorta AO Root Diam: 3.46 cm Ascending Ao Diam: 3.23 cm Aortic Valve AoV Area (Peak Adarsh): 3.18 cm2, 3.18 cm2 AoV Area (VTI): 3.36 cm2, 3.36 cm2 Peak Velocity(Antegrade Flow): 1.21 m/s Peak Gradient(Antegrade Flow): 5.85 mm[Hg] Mean Velocity(Antegrade Flow): 0.85 m/s Mean Gradient(Antegrade Flow): 3.32 mm[Hg] Velocity Time Integral: 25.21 cm Tricuspid Valve Peak Velocity (Regurgitant Flow): 1.79 m/s, 2.78 m/s, 2.70 m/s Pulmonic Valve Mean Gradient: 2.35 mm[Hg], 1.98 mm[Hg] Mean Velocity: 0.73 m/s, 0.65 m/s Peak Velocity: 1.11 m/s Peak Gradient: 5.09 mm[Hg], 4.78 mm[Hg] Right Atrium Right Atrium Systolic Pressure: 50.16 ml, 50.16 ml Dictated by: Kyle Patrick M.D. on 02/23/2025 at 15:08 Approved by: Kyle Patrick M.D. on 02/23/2025 at 15:16
== END 2025-02-22 08:21 | disposition home or self-care (01) ==
LOC: CARD 08:21
PROVIDERS: PCP Internal Medicine; Visit Provider Internal Medicine Interventional Cardiology
DX: I50.22 Chronic systolic (congestive) heart failure (principal)
CPT/HCPCS: 93306; 93356